=== PATIENT | female | born 1930 | race Caucasian/White ===

== ENCOUNTER → 2016-07-13 | Outpatient (CLI) | payer BC ==
[~2016-07-13] MED LIST: BCTCR/30 EXT; CHOL1000 PO; CLC100 PO; CYAN10005 PO; CYAN100T6 PO; DILT-115 PO; DOCU-94 PO; FURO-85 PO; LEVO75TA PO; LISI-725 PO; MCRK20 PO; NYSS/ PO; OXGN; PANT40TA PO; PRAV20TA PO; PRD/1 PO; PRD20 PO; PRED10TA PO; PRT/20 PO; PSYL1.7W PO; SYN100 PO
[2016-07-13 12:39] LABS: HEMATOCRIT 31.3 % (37-47); MEAN CORPUSCULAR HEMOGLOBIN 30.5 pg (25-34); MEAN CORPUSCULAR HGB CONC 33.5 g/dl (32-36); MEAN PLATELET VOLUME 9.3 fL (7.4-10.4); PLATELET COUNT 218 K/uL (130-400); RED BLOOD COUNT 3.44 M/uL (4.2-5.4); WHITE BLOOD COUNT 6.96 K/uL (4.8-10.8)
[2016-07-13 12:43] LABS: URINE APPEARANCE CLEAR (CLEAR); URINE BILIRUBIN NEG (NEG); URINE COLOR YELLOW; URINE EPITHELIAL CELL AUTO >30 /lpf (0-5); URINE NITRITE NEG (NEG); URINE PH 5.5 (4.5-7.5); URINE SPECIFIC GRAVITY 1.015 (1.000-1.030); UROBILINOGEN NEG (NEG)
[2016-07-13 12:49] LABS: ALT/SGPT 21 U/L (12-78); AST/SGOT 21 U/L (15-37); BLOOD UREA NITROGEN 22 mg/dl (7-18); BUN/CREATININE RATIO 15.8 (10-20); CALCIUM 8.8 mg/dl (8.5-10.1); CARBON DIOXIDE 26 mmol/L (21-32); CHLORIDE 109 mmol/L (98-107); GLUCOSE 99 mg/dl (70-99); POTASSIUM 4.5 mmol/L (3.5-5.1); SODIUM 143 mmol/L (136-145)
[2016-07-13 12:52] LABS: MANUAL MICROSCOPIC REQUIRED? NO; REVIEW REQ? NO
[2016-07-13 12:59] LABS: ALB/GLOB RATIO 1.2 (0.9-2); ALKALINE PHOSPHATASE 61 U/L (45-117); THYROID STIMULATING HORMONE 0.761 uIu/ml (0.300-4.500)
[2016-07-13 13:05] LABS: URINE PROTIEN/CREAT RATIO 0.2 (0-0.2); URINE TOTAL PROTEIN 13.8 mg/dl (0-11.9)
== END | disposition home or self-care (01) ==
LOC: C.LABBFT 10:44
PROVIDERS: ATTEND Internal Medicine Nephrology
DX: N18.9 Chronic kidney disease, unspecified (principal); I10 Essential (primary) hypertension; E55.9 Vitamin D deficiency, unspecified; N18.3 Chronic kidney disease, stage 3 (moderate); E03.9 Hypothyroidism, unspecified

== ENCOUNTER 2016-09-22 13:56 | Inpatient (IN) | payer BC, OTHER ==
[~2016-09-22] VITALS: Ht 162.6 cm; Wt 56.6 kg
[~2016-09-22 13:56] MED LIST changes: -BCTCR/30 EXT; -CHOL1000 PO; -CYAN10005 PO; -DOCU-94 PO; -FURO-85 PO; -LEVO75TA PO; -MCRK20 PO; -NYSS/ PO; -OXGN; -PRD/1 PO; -PRD20 PO; -PRED10TA PO; -PRT/20 PO; -PSYL1.7W PO
[2016-09-22] MEDS ORDERED: PRT/20 PO (14:13)
[2016-09-22] MEDS ORDERED: CYAN10005 PO (14:13)
[2016-09-22] MEDS ORDERED: DOCU-94 PO (14:13)
[2016-09-22] MEDS ORDERED: LEVO75TA PO (14:13)
[2016-09-22] MEDS ORDERED: CHOL1000 PO (14:18)
--- NOTE | 2016-09-22 15:08 | DIAGNOSTIC IMAGING REPORT ---
CHEST 2 VIEWS ROUTINE HISTORY: Shortness of breath. COMPARISON: Chest 06/12/2014. FINDINGS: Near diffuse bilateral airspace opacities. No pneumothorax. Trace bilateral pleural effusions. The heart is mildly enlarged. IMPRESSION: Near diffuse bilateral airspace opacities and trace bilateral pleural effusions. This could represent pulmonary edema or a pneumonia. Recommend follow-up to ensure resolution. Electronically signed by: Jaswinder Cho M.D. 09/22/2016 3:06 PM Dictated Date/Time: 09/22/2016 3:05 PM
[2016-09-22 15:10] LABS: ALT/SGPT 81 U/L (12-78); BLOOD UREA NITROGEN 30 mg/dl (7-18); CALCIUM 8.3 mg/dl (8.5-10.1); CARBON DIOXIDE 20 mmol/L (21-32); CHLORIDE 108 mmol/L (98-107); GLUCOSE 160 mg/dl (70-99); POTASSIUM 4.4 mmol/L (3.5-5.1); SODIUM 139 mmol/L (136-145)
[2016-09-22 15:13] LABS: ALB/GLOB RATIO 0.9 (0.9-2); ALKALINE PHOSPHATASE 145 U/L (45-117); AST/SGOT 76 U/L (15-37)
[2016-09-22 15:14] LABS: HEMATOCRIT 19.9 % (37-47); MEAN CELL VOLUME 96.1 fL (80-100); MEAN CORPUSCULAR HEMOGLOBIN 32.9 pg (25-34); MEAN CORPUSCULAR HGB CONC 34.2 g/dl (32-36); MEAN PLATELET VOLUME 8.9 fL (7.4-10.4); PLATELET COUNT 206 K/uL (130-400); RED BLOOD COUNT 2.07 M/uL (4.2-5.4)
[2016-09-22 15:18] LABS: ANISOCYTOSIS PRESENT; BASO % 0.2 %; BASO ABS # 0.03 K/uL (0-0.2); COMPLETE YES; EOS % 0.1 %; IG% 0.8 %; LYMPH % 6.4 %; LYMPH ABS # 0.89 K/uL (1.2-3.4); MICROCYTOSIS PRESENT; MONO % 7.1 %; NEUT % 85.4 %; POLYCHROMASIA 1+
[2016-09-22 15:19] LABS: PARTIAL THROMBOPLASTIN RATIO 0.7; PROTHROMBIN TIME (PATIENT) 10.7 SECONDS (9.0-12.0)
--- NOTE | 2016-09-22 17:09 | DIAGNOSTIC IMAGING REPORT ---
CT SCAN OF THE CHEST WITHOUT IV CONTRAST CLINICAL HISTORY: Dyspnea. COMPARISON STUDY: Chest CT dated 06/13/2014. Chest x-ray dated 09/22/2016. TECHNIQUE: CT scan of the thorax was performed from the thoracic inlet to the upper abdomen. Images are reviewed in the axial, sagittal, and coronal planes. IV contrast was not administered for this examination. The examination is degraded by streak artifact and the patient's arms which could not be elevated above the chest. The examination is also degraded by motion artifact. CT DOSE: 204.81 mGy.cm FINDINGS: Thyroid: Atrophic. Thoracic aorta: There is advanced atherosclerotic calcification of the thoracic aorta, which is normal in caliber and demonstrates standard 3-vessel arch anatomy. Heart: The heart is markedly enlarged and without pericardial effusion. The coronary arteries are densely calcified. There is diminished attenuation of the cardiac blood pool as compared to the myocardium suggesting anemia. The main pulmonary arteries are dilated suggesting pulmonary artery hypertension. Lungs and pleural spaces: Evaluation of the lung parenchyma is degraded by expiratory motion artifact. There are small pleural effusions, right larger than left with associated bibasilar atelectasis. Diffuse intralobular septal thickening is noted. There are diffuse bilateral airspace opacities in a perihilar distribution. The trachea and central airways appear clear. Mediastinum: There are numerous prominent mediastinal lymph nodes which measure up to 9 mm in short axis. Calcified mediastinal nodes are observed. Susy: Not well assessed without IV contrast. There are calcified right hilar nodes. Axillae: There is no axillary lymphadenopathy. Upper abdomen: A small hiatal hernia is identified. There is gas present within the gallbladder lumen. Mild central intrahepatic biliary ductal dilatation is noted. There are numerous calcified splenic granulomas. Calcified hepatic granulomas are also seen. The partially imaged left kidney demonstrates marked cortical atrophy. Skeletal structures: The skeletal structures are osteopenic. There is an age indeterminant superior endplate compression deformity of T11. Large hemangiomas are seen in the bodies of T1, T2, and L1. No lytic or blastic bony lesions are seen. Advanced arthritic change is noted in the shoulders. IMPRESSION: 1. Streak and motion degraded examination. 2. The heart is markedly enlarged. Diffuse intralobular septal thickening suggests congestive failure. 3. There are diffuse bilateral airspace opacities in a predominantly perihilar distribution. The appearance is nonspecific, and differential considerations include pulmonary edema, pneumonia, pulmonary hemorrhage, and/or ARDS. Clinical correlation will be essential. 4. Small pleural effusions, right larger than left. 5. Nonspecific gas is noted within the partially imaged gallbladder lumen. This could be iatrogenic if there has been a history of sphincterotomy. Correlation with clinical findings and serum bilirubin levels will be required. 6. Numerous prominent mediastinal lymph nodes are of indeterminant significance and may be reactive. 7. Additional findings as above. Electronically signed by: Yimi Lo M.D. 09/22/2016 5:08 PM Dictated Date/Time: 09/22/2016 4:57 PM
--- NOTE | 2016-09-22 18:27 | EMERGENCY ROOM VISIT NOTE ---
History Report prepared by Ramya: Willa Almanzar Under the Supervision of: Dr. Gertrudis Romero D.O. First contact with patient: 14:04 Chief Complaint: RESPIRATORY DISTRESS Stated Complaint: CHEST PAIN, COUGH W/BLOOD Nursing Triage Summary: Pt arrives ALS from home with SOB x1 week Pt also c/o midsternal CP that radiates between shoulder blades O2 sats 81% on RA on arrival to ED SOB worse with exertion Pt had 1 nitro and 324ASA en route History of Present Illness The patient is an 86 year old female who presents to the Emergency Room with complaints of persistent difficulty breathing for the past 3-4 days. She was brought to the ED by EMS. She was starting to feel better yesterday, but then began to cough up blood. The patient reports that she is no longer on blood thinners. She was previously on dialysis, but regained enough kidney function to stop. She follows with Dr. Sanon, cardiology, for worsening aortic stenosis. Patient reports coughing, chills, intermittent pain up the side of her neck, and chest tightness. She denies any fever, abdominal pain, or chest pain. Source of History: patient Onset: 3-4 days ago Position: other (global) Quality: other (SOB) Timing: other (persistent) Associated Symptoms: + chills, + cough (hemotypsis), + neck pain ( intermittent up the side), No abdominal pain, No chest pain, No fevers Note: Pt reports chest tightness. Review of Systems See HPI for pertinent positives & negatives. A total of 10 systems reviewed and were otherwise negative. 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 Family History Heart disease Social History Smoking Status: Never Smoker Marital Status: Housing Status: lives alone Occupation Status: retired Current/Historical Medications Scheduled Cholecalciferol (Vitamin D3), 1 TAB PO DAILY Cyanocobalamin (Vitamin B-12), 1,000 MCG PO DAILY Diltiazem Hcl Ext Rel (Tiazac), 240 MG PO DAILY Docusate Sodium (Colace), 1 CAP PO BID Levothyroxine Sodium (Synthroid), 75 MCG PO DAILY Lisinopril (Zestril), 20 MG PO Q12HR Pantoprazole (Protonix), 20 MG PO BID Pravastatin (Pravachol ), 20 MG PO HS Allergies Coded Allergies: Doxycycline (Verified Allergy, Severe, RASH, 09/22/16) Trimethoprim (Verified Allergy, Severe, RASH, 09/22/16) Adhesives (Verified Allergy, Unknown, HAD RXN TO [employer] PATCHES, ) Carbamazepine (Verified Allergy, Unknown, 09/22/16) Hydantoins (Verified Allergy, Unknown, 09/22/16) Penicillins (Verified Allergy, Unknown, AMOXIL, 09/22/16) Phenytoin (Verified Allergy, Unknown, 09/22/16) Physical Exam Vital Signs Date Time Temp Pulse Resp B/P Pulse Ox O2 Delivery O2 Flow Rate FiO2 09/22/16 18:06 82 09/22/16 17:06 127/52 09/22/16 16:31 111/57 09/22/16 16:26 76 26 96 09/22/16 16:01 118/52 09/22/16 16:01 74 20 118/52 96 09/22/16 15:56 78 26 91 09/22/16 15:31 107/53 09/22/16 15:26 76 28 95 09/22/16 15:24 77 22 112/58 96 6.0 09/22/16 15:22 112/58 09/22/16 15:20 78 18 64/46 09/22/16 15:19 68/46 09/22/16 14:26 83 20 93 09/22/16 14:10 93 Nasal Cannula 6.0 09/22/16 14:06 91 Nasal Cannula 6.0 09/22/16 14:05 88 09/22/16 14:04 115/52 09/22/16 14:02 81 Room Air 09/22/16 14:02 37.5 92 28 115/52 81 Room Air Physical Exam HEENT: Head - normocephalic and atraumatic Pupils are equal, round, and reactive to light. Extraocular eye muscles are intact, and sclera are anicteric. Nose - moist nasal mucosa without discharge. Mouth - moist buccal mucosa. Oropharynx is nonerythematous and there is no tonsillar exudate or edema noted. Neck: Supple; no JVD, nuchal rigidity, cervical lymphadenopathy. Heart: Regular rate and rhythm. There is a normal S1 and S2 with no murmurs, clicks, or gallops appreciated. Lungs: Rhonchi in base of lungs bilaterally. Abdomen: Soft, completely nontender, nondistended, with good bowel sounds. There are no palpable pulsatile masses or hepatosplenomegaly. There is no guarding, rigidity, or rebound noted. Extremities: No evidence of cyanosis, clubbing, or edema. There are easily palpable peripheral pulses. Skin: pale, warm and dry with good turgor and no rashes. Medical Decision & Procedures ER Provider Diagnostic Interpretation: X-ray results as stated below per interpretation by me and the radiologist. Radiology results as stated below per my review and the radiologist's interpretation: CHEST 2 VIEWS ROUTINE HISTORY: Shortness of breath. COMPARISON: Chest 06/12/2014. FINDINGS: Near diffuse bilateral airspace opacities. No pneumothorax. Trace bilateral pleural effusions. The heart is mildly enlarged. IMPRESSION: Near diffuse bilateral airspace opacities and trace bilateral pleural effusions. This could represent pulmonary edema or a pneumonia. Recommend follow-up to ensure resolution. Electronically signed by: Jaswinder Cho M.D. 09/22/2016 3:06 PM Dictated Date/Time: 09/22/2016 3:[address] SCAN OF THE CHEST WITHOUT IV CONTRAST CLINICAL HISTORY: Dyspnea. COMPARISON STUDY: Chest CT dated 06/13/2014. Chest x-ray dated 09/22/2016. TECHNIQUE: CT scan of the thorax was performed from the thoracic inlet to the upper abdomen. Images are reviewed in the axial, sagittal, and coronal planes. IV contrast was not administered for this examination. The examination is degraded by streak artifact and the patient's arms which could not be elevated above the chest. The examination is also degraded by motion artifact. CT DOSE: 204.81 mGy.cm FINDINGS: Thyroid: Atrophic. Thoracic aorta: There is advanced atherosclerotic calcification of the thoracic aorta, which is normal in caliber and demonstrates standard 3-vessel arch anatomy. Heart: The heart is markedly enlarged and without pericardial effusion. The coronary arteries are densely calcified. There is diminished attenuation of the cardiac blood pool as compared to the myocardium suggesting anemia. The main pulmonary arteries are dilated suggesting pulmonary artery hypertension. Lungs and pleural spaces: Evaluation of the lung parenchyma is degraded by expiratory motion artifact. There are small pleural effusions, right larger than left with associated bibasilar atelectasis. Diffuse intralobular septal thickening is noted. There are diffuse bilateral airspace opacities in a perihilar distribution. The trachea and central airways appear clear. Mediastinum: There are numerous prominent mediastinal lymph nodes which measure up to 9 mm in short axis. Calcified mediastinal nodes are observed. Susy: Not well assessed without IV contrast. There are calcified right hilar nodes. Axillae: There is no axillary lymphadenopathy. Upper abdomen: A small hiatal hernia is identified. There is gas present within the gallbladder lumen. Mild central intrahepatic biliary ductal dilatation is noted. There are numerous calcified splenic granulomas. Calcified hepatic granulomas are also seen. The partially imaged left kidney demonstrates marked cortical atrophy. Skeletal structures: The skeletal structures are osteopenic. There is an age indeterminant superior endplate compression deformity of T11. Large hemangiomas are seen in the bodies of T1, T2, and L1. No lytic or blastic bony lesions are seen. Advanced arthritic change is noted in the shoulders. IMPRESSION: 1. Streak and motion degraded examination. 2. The heart is markedly enlarged. Diffuse intralobular septal thickening suggests congestive failure. 3. There are diffuse bilateral airspace opacities in a predominantly perihilar distribution. The appearance is nonspecific, and differential considerations include pulmonary edema, pneumonia, pulmonary hemorrhage, and/or ARDS. Clinical correlation will be essential. 4. Small pleural effusions, right larger than left. 5. Nonspecific gas is noted within the partially imaged gallbladder lumen. This could be iatrogenic if there has been a history of sphincterotomy. Correlation with clinical findings and serum bilirubin levels will be required. 6. Numerous prominent mediastinal lymph nodes are of indeterminant significance and may be reactive. 7. Additional findings as above. Electronically signed by: Yimi Lo M.D. 09/22/2016 5:08 PM Dictated Date/Time: 09/22/2016 4:57 PM Laboratory Results 09/22/16 14:41 Red Blood Count 2.07, Mean Corpuscular Volume 96.1, Mean Corpuscular Hemoglobin 32.9, Mean Corpuscular Hemoglobin Concent 34.2, Mean Platelet Volume 8.9, Neutrophils (%) (Auto) 85.4, Lymphocytes (%) (Auto) 6.4, Monocytes (%) (Auto) 7.1, Eosinophils (%) (Auto) 0.1, Basophils (%) (Auto) 0.2, Neutrophils # (Auto) 11.78, Lymphocytes # (Auto) 0.89, Monocytes # (Auto) 0.98, Eosinophils # (Auto) 0.01, Basophils # (Auto) 0.03 09/22/16 14:41 Test 09/22/16 14:41 09/22/16 14:45 White Blood Count 13.80 K/uL (4.8-10.8) Red Blood Count 2.07 M/uL (4.2-5.4) Hemoglobin 6.8 g/dL (12.0-16.0) Hematocrit 19.9 % (37-47) Mean Corpuscular Volume 96.1 fL (80-100) Mean Corpuscular Hemoglobin 32.9 pg (25-34) Mean Corpuscular Hemoglobin Concent 34.2 g/dl (32-36) Platelet Count 206 K/uL (130-400) Mean Platelet Volume 8.9 fL (7.4-10.4) Neutrophils (%) (Auto) 85.4 % Lymphocytes (%) (Auto) 6.4 % Monocytes (%) (Auto) 7.1 % Eosinophils (%) (Auto) 0.1 % Basophils (%) (Auto) 0.2 % Neutrophils # (Auto) 11.78 K/uL (1.4-6.5) Lymphocytes # (Auto) 0.89 K/uL (1.2-3.4) Monocytes # (Auto) 0.98 K/uL (0.11-0.59) Eosinophils # (Auto) 0.01 K/uL (0-0.5) Basophils # (Auto) 0.03 K/uL (0-0.2) RDW Standard Deviation 60.1 fL (36.4-46.3) RDW Coefficient of Variation 17.9 % (11.5-14.5) Immature Granulocyte % (Auto) 0.8 % Immature Granulocyte # (Auto) 0.11 K/uL (0.00-0.02) Polychromasia 1+ Anisocytosis PRESENT Microcytosis PRESENT Prothrombin Time 10.7 SECONDS (9.0-12.0) Prothromb Time International Ratio 1.0 (0.9-1.1) Activated Partial Thromboplast Time 19.4 SECONDS (21.0-31.0) Partial Thromboplastin Ratio 0.7 D-Dimer 1780 ug/L FEU (0-500) Anion Gap 11.0 mmol/L (3-11) Estimated GFR () 23.8 Estimated GFR (Non- 20.5 BUN/Creatinine Ratio 14.0 (10-20) Calcium Level 8.3 mg/dl (8.5-10.1) Total Bilirubin 1.4 mg/dl (0.2-1) Aspartate Amino Transf (AST/SGOT) 76 U/L (15-37) Alanine Aminotransferase (ALT/SGPT) 81 U/L (12-78) Alkaline Phosphatase 145 U/L (45-117) Total Protein 6.8 gm/dl (6.4-8.2) Albumin 3.3 gm/dl (3.4-5.0) Globulin 3.5 gm/dl (2.5-4.0) Albumin/Globulin Ratio 0.9 (0.9-2) Bedside Lactic Acid Venous 1.38 mmol/L (0.90-1.70) Laboratory results per my review. Procedure Type and cross PRBC ECG Indication: SOB/dyspnea Rate (beats per minute): 83 Rhythm: normal sinus Findings: ST depression (Lateral), no ectopy ED Course 1409: The patient was evaluated in room B4. A complete history and physical examination were performed. Nursing notes and previous electronic medical records were reviewed. IV lock was established and labs were drawn as above. A twelve-lead EKG was obtained. A chest x-ray was performed. 1515: The patient is significantly anemic. 1534: I reevaluated the patient. I updated her and her family on the results and treatment plan. They verbalized understanding and agreement. She will be evaluated for further management by [facility]. 1628: I discussed the patient's case with Dr. [place], [facility] [place]. She will be evaluated for further management. The patient for CT scan of the chest. 1632: The nurse tested the patient's stool. It was heme positive. Medical Decision The patient is a 86 year old female who presents to the ED with difficulty breathing. Differential diagnosis includes PE, CHF, pneumonia, empyema, bronchitis. Labs: WBC count 13.8, hemoglobin 6.8, platelet count 206, BUN 30, creatinine 2.1 , lactic acid 1.3, total bilirubin 1.4, AST 76, ALT 81, Alk Phos 145, D-dimer 1780. This is an 78-year-old female patient who presents to the emergency department with increasing shortness of breath and hemoptysis. The patient was noted to have an elevated creatinine consistent with acute renal failure. She has dropped 4 g of hemoglobin in the past 2 months. Her stools were heme positive. I'm concerned about the hemoptysis and the possibility of pulmonary blood. The patient has had previous DVTs and was on Coumadin previously but no longer takes it. We are unable to get a contrasted CT scan of the chest because of the elevated creatinine. We did a noncontrast CAT scan which shows probable consolidation consistent with pneumonia. She will be treated with antibiotics. She will also require blood transfusion. I discussed the case with the [facility] Hospitalist and they will byway for further management. Consults Time Called: 1534 Consulting Physician: Dr. [place], [facility] [place] Returned Call: [phone] I discussed the patient's case with him. She will be evaluated for further management. Impression Primary Impression: Acute renal failure Additional Impression: Anemia Scribe Attestation The scribe's documentation has been prepared under my direction and personally reviewed by me in its entirety. I confirm that the note above accurately reflects all work, treatment, procedures, and medical decision making performed by me. Departure Information Dispostion Being Evaluated By Hospitalist Referrals Eugneio Cardenas M.D. (PCP) Patient Instructions Asthma - [facility], COPD - [facility], Croup - [facility], My [facility] Health Problem Qualifiers
[2016-09-22] MEDS ORDERED: METHYLPREDNISOLONE 125 MG VIAL IV STA ×2 (18:36→19:40)
[2016-09-22] MEDS ORDERED: PANTOprazole INJ 80 MG in DEXTROSE 5% 100ML 100 ML IV SCH (19:15)
[2016-09-22] MEDS ORDERED: PANTOprazole INJ 40 MG in DEXTROSE 5% 100ML 100 ML IV SCH (19:15)
[2016-09-22] MEDS ORDERED: ZOLPIDEM TARTRATE 5 MG TAB PO PRN (19:15)
[2016-09-22] MEDS ORDERED: ONDANSETRON INJ 2 MG/ML 2 ML VIAL IV PRN (19:15)
[2016-09-22] MEDS ORDERED: ACETAMINOPHEN 325 MG TAB PO PRN (19:15)
--- NOTE | 2016-09-22 19:47 | Critical Care Consultation ---
Critical Care Consultation Date of Consultation: Sep 22, 2016. Attending Physician: kalyani Reason for Consultation: hemoptysis History of Present Illness This is an 86 yo f that is presenting to us for consultation after an episode hemoptysis in the presence of hypoxia. According to the patient she has been having progressive worsening of SOB over the past 3-4 days and actually started to feel better. Today she had an episode of hemoptysis ( bright red blood) and her son called the EMS. She was found to be significantly hypoxic and started on oxygen. She also had another episode of hemoptysis en route. She is currently comfortable with 6 L of oxygen. She was evaluated in the ED and CXR was concerning for ARDS however inconclusive so a CT scan of the chest was completed. No contrast was used because the patient has a history of CKD and the cr was 1.8. It revealed findings that were concerning for pulmonary hemorrhage. She was also found to be anemic with a hgb of < 7. She does have abnormal antibiotics in the blood which make it difficult for transfusion and needs to be transported from [place]. She does have a significant history of nephritis which was thought to be secondary to Dilantin use. This required that the patient be placed on hemodialysis for some time. She has been weaned off of the dialysis however continues to follow regualarly with Dr Gaitan. There was a thought to do a kidney biopsy but because the patient was on blood thinners at the time for a pulmonary embolus it was deferred at that time and not revisited because the patient improved. She also has a history of severe aortic stenosis whom she follows with Dr Sanon. No history of gastric/ duodenal ulcers. Past Medical/Surgical History Chronic anemia CKD III Seizures Pulmonary embolism HTN Hypothyroism Hyperchol bilat hip arthroplasty TIA Family History Heart disease Social History Smoking Status: Never Smoker Smokeless Tobacco Use: No Alcohol Use: none Drug Use: none Marital Status: Housing Status: lives alone Occupation Status: retired Allergies Coded Allergies: Doxycycline (Verified Allergy, Severe, RASH, 09/22/16) Trimethoprim (Verified Allergy, Severe, RASH, 09/22/16) Adhesives (Verified Allergy, Unknown, HAD RXN TO [employer]ATCHES, ) Carbamazepine (Verified Allergy, Unknown, 09/22/16) Hydantoins (Verified Allergy, Unknown, 09/22/16) Penicillins (Verified Allergy, Unknown, AMOXIL, 09/22/16) Phenytoin (Verified Allergy, Unknown, 09/22/16) Home Medications Scheduled Cholecalciferol (Vitamin D3), 1 TAB PO DAILY Cyanocobalamin (Vitamin B-12), 1,000 MCG PO DAILY Diltiazem Hcl Ext Rel (Tiazac), 240 MG PO DAILY Docusate Sodium (Colace), 1 CAP PO BID Levothyroxine Sodium (Synthroid), 75 MCG PO DAILY Lisinopril (Zestril), 20 MG PO Q12HR Pantoprazole (Protonix), 20 MG PO BID Pravastatin (Pravachol ), 20 MG PO HS Current Inpatient Medications Current Inpatient Medications Medications (Trade) Dose Ordered Sig/Phillip Route Start Time Stop Time Status Last Admin Dose Admin Sodium Chloride (Nss 1000ml) 1,000 ml @ 75 mls/hr [id number] IV 09/22/16 19:06 10/22/16 19:05 UNV Acetaminophen (Tylenol Tab) 650 mg Q4H PRN PO 09/22/16 19:15 10/22/16 19:14 UNV Zolpidem Tartrate (Ambien Tab) 5 mg HSZ PRN PO 09/22/16 19:15 10/22/16 19:14 UNV Diltiazem HCl (TIAzac CAP) 120 mg BID PO 09/22/16 21:00 10/22/16 20:59 UNV Levothyroxine Sodium 75 mcg 75 mcg DAILY PO 09/23/16 09:00 10/23/16 08:59 UNV Pantoprazole Sodium 80 mg/ Dextrose 120 ml @ 400 mls/hr NOW IV 09/22/16 19:15 10/22/16 19:14 UNV Pantoprazole Sodium/Dextrose (Protonix Inj/D5 100ml) 100 ml @ 20 mls/hr Q5H IV 09/22/16 19:15 10/22/16 19:14 UNV Ondansetron HCl (Zofran Inj) 4 mg Q6H PRN IV 09/22/16 19:15 10/22/16 19:14 UNV Review of Systems Constitutional: No fever Eyes: No worsening of vision ENT: No hearing loss Respiratory: + dyspnea at rest, + dyspnea on exertion, + hemoptysis, + shortness of breath, No cough, No wheezing Cardiovascular: No chest pain Abdomen: No constipation, No diarrhea, No nausea, No pain, No vomiting Musculoskeletal: No joint pain, No muscle pain Genitourinary - Female: No dysuria, No hematuria Neurologic: + weakness, No balance problems, No numbness/tingling Endocrine: No fatigue Hematologic / Lymphatic: + abnormal bleeding/bruising Integumentary: No rash Physical Exam Date Time Temp Pulse Resp B/P Pulse Ox O2 Delivery O2 Flow Rate FiO2 09/22/16 19:01 121/54 09/22/16 18:41 82 29 95 09/22/16 18:11 81 31 95 09/22/16 18:06 82 09/22/16 18:01 118/64 09/22/16 17:41 80 31 95 09/22/16 17:11 76 27 95 09/22/16 17:06 127/52 09/22/16 16:31 111/57 09/22/16 16:26 76 26 96 09/22/16 16:01 118/52 09/22/16 16:01 74 20 118/52 96 09/22/16 15:56 78 26 91 09/22/16 15:31 107/53 09/22/16 15:26 76 28 95 09/22/16 15:24 77 22 112/58 96 6.0 09/22/16 15:22 112/58 09/22/16 15:20 78 18 64/46 09/22/16 15:19 68/46 09/22/16 14:26 83 20 93 09/22/16 14:10 93 Nasal Cannula 6.0 09/22/16 14:06 91 Nasal Cannula 6.0 09/22/16 14:05 88 09/22/16 14:04 115/52 09/22/16 14:02 81 Room Air 09/22/16 14:02 37.5 92 28 115/52 81 Room Air General Appearance: well-appearing, no apparent distress, other (She is on 6 L of oxygen during this assessment) Head: normocephalic, atraumatic Eyes: no discharge, EOMI ENT: other (inspection WNL) Neck: normal range of motion, supple Respiratory: other (no accessory muscle use, no respiratory distress during examination) Upper Extremities: no edema, normal ROM Lower Extremities: no edema, normal ROM Psychiatric: normal affect, other (oritented and alert) Laboratory Results Last 24 Hours Test 09/22/16 14:41 09/22/16 14:45 White Blood Count 13.80 K/uL Red Blood Count 2.07 M/uL Hemoglobin 6.8 g/dL Hematocrit 19.9 % Mean Corpuscular Volume 96.1 fL Mean Corpuscular Hemoglobin 32.9 pg Mean Corpuscular Hemoglobin Concent 34.2 g/dl Platelet Count 206 K/uL Mean Platelet Volume 8.9 fL Neutrophils (%) (Auto) 85.4 % Lymphocytes (%) (Auto) 6.4 % Monocytes (%) (Auto) 7.1 % Eosinophils (%) (Auto) 0.1 % Basophils (%) (Auto) 0.2 % Neutrophils # (Auto) 11.78 K/uL Lymphocytes # (Auto) 0.89 K/uL Monocytes # (Auto) 0.98 K/uL Eosinophils # (Auto) 0.01 K/uL Basophils # (Auto) 0.03 K/uL RDW Standard Deviation 60.1 fL RDW Coefficient of Variation 17.9 % Immature Granulocyte % (Auto) 0.8 % Immature Granulocyte # (Auto) 0.11 K/uL Polychromasia 1+ Anisocytosis PRESENT Microcytosis PRESENT Prothrombin Time 10.7 SECONDS Prothromb Time International Ratio 1.0 Activated Partial Thromboplast Time 19.4 SECONDS Partial Thromboplastin Ratio 0.7 D-Dimer 1780 ug/L FEU Sodium Level 139 mmol/L Potassium Level 4.4 mmol/L Chloride Level 108 mmol/L Carbon Dioxide Level 20 mmol/L Anion Gap 11.0 mmol/L Blood Urea Nitrogen 30 mg/dl Creatinine 2.10 mg/dl Estimated GFR () 23.8 Estimated GFR (Non- 20.5 BUN/Creatinine Ratio 14.0 Random Glucose 160 mg/dl Calcium Level 8.3 mg/dl Total Bilirubin 1.4 mg/dl Aspartate Amino Transf (AST/SGOT) 76 U/L Alanine Aminotransferase (ALT/SGPT) 81 U/L Alkaline Phosphatase 145 U/L Total Protein 6.8 gm/dl Albumin 3.3 gm/dl Globulin 3.5 gm/dl Albumin/Globulin Ratio 0.9 Bedside Lactic Acid Venous 1.38 mmol/L Diagnostic Results CT SCAN OF THE CHEST WITHOUT IV CONTRAST CLINICAL HISTORY: Dyspnea. COMPARISON STUDY: Chest CT dated 06/13/2014. Chest x-ray dated 09/22/2016. TECHNIQUE: CT scan of the thorax was performed from the thoracic inlet to the upper abdomen. Images are reviewed in the axial, sagittal, and coronal planes. IV contrast was not administered for this examination. The examination is degraded by streak artifact and the patient's arms which could not be elevated above the chest. The examination is also degraded by motion artifact. CT DOSE: 204.81 mGy.cm FINDINGS: Thyroid: Atrophic. Thoracic aorta: There is advanced atherosclerotic calcification of the thoracic aorta, which is normal in caliber and demonstrates standard 3-vessel arch anatomy. Heart: The heart is markedly enlarged and without pericardial effusion. The coronary arteries are densely calcified. There is diminished attenuation of the cardiac blood pool as compared to the myocardium suggesting anemia. The main pulmonary arteries are dilated suggesting pulmonary artery hypertension. Lungs and pleural spaces: Evaluation of the lung parenchyma is degraded by expiratory motion artifact. There are small pleural effusions, right larger than left with associated bibasilar atelectasis. Diffuse intralobular septal thickening is noted. There are diffuse bilateral airspace opacities in a perihilar distribution. The trachea and central airways appear clear. Mediastinum: There are numerous prominent mediastinal lymph nodes which measure up to 9 mm in short axis. Calcified mediastinal nodes are observed. Susy: Not well assessed without IV contrast. There are calcified right hilar nodes. Axillae: There is no axillary lymphadenopathy. Upper abdomen: A small hiatal hernia is identified. There is gas present within the gallbladder lumen. Mild central intrahepatic biliary ductal dilatation is noted. There are numerous calcified splenic granulomas. Calcified hepatic granulomas are also seen. The partially imaged left kidney demonstrates marked cortical atrophy. Skeletal structures: The skeletal structures are osteopenic. There is an age indeterminant superior endplate compression deformity of T11. Large hemangiomas are seen in the bodies of T1, T2, and L1. No lytic or blastic bony lesions are seen. Advanced arthritic change is noted in the shoulders. IMPRESSION: 1. Streak and motion degraded examination. 2. The heart is markedly enlarged. Diffuse intralobular septal thickening suggests congestive failure. 3. There are diffuse bilateral airspace opacities in a predominantly perihilar distribution. The appearance is nonspecific, and differential considerations include pulmonary edema, pneumonia, pulmonary hemorrhage, and/or ARDS. Clinical correlation will be essential. 4. Small pleural effusions, right larger than left. 5. Nonspecific gas is noted within the partially imaged gallbladder lumen. This could be iatrogenic if there has been a history of sphincterotomy. Correlation with clinical findings and serum bilirubin levels will be required. 6. Numerous prominent mediastinal lymph nodes are of indeterminant significance and may be reactive. 7. Additional findings as above. [~ rep ct add3]] CHEST 2 VIEWS ROUTINE HISTORY: Shortness of breath. COMPARISON: Chest 06/12/2014. FINDINGS: Near diffuse bilateral airspace opacities. No pneumothorax. Trace bilateral pleural effusions. The heart is mildly enlarged. IMPRESSION: Near diffuse bilateral airspace opacities and trace bilateral pleural effusions. This could represent pulmonary edema or a pneumonia. Recommend follow-up to ensure resolution. Assessment & Plan 1. Hypoxic respiratory failure possibly secondary to diffuse alveolar hemorrhage 2. Acute blood loss causing acute on chronic anemia 3. ANA PAULA on CKD Upon review of the patient's films and history we discussed the case with the family. We described the prognosis as poor and there was two ways we can approach treatment. One would be that the patient be transferred to a tertiary center where the patient would be subject to more aggressive measures of treatment and treatments that may not be entirely effective considering the patient's age, past medical history, current health and renal status. The alternative would be to stay here and to be treated with steroids for a potential autoimmune etiology however they understood that if the patient's status were to worsen that we would be limited in how well we could treat the patient aggressively. As per the patient's request we discussed the case with the american studies professor network communications engineer to discuss the plan of care and he was agreeable with the outcome with either plan. After extensive discussion with the family and patient it was decided she would stay. We also discussed her resuscitation status and that by staying here we would once again be limited in our resuscitative measures because of how extensive the hemorrhage could be. Once again, an extensive discussion was had with family and patient and it was decided she would remain DNR/DNI and if need be comfort measures would be initiated if patient's health degraded Resident Physician Supervision Note: Dr. Arellano was resident physician during care of patient. I separately evaluated patient and did history and exam. I discussed the case with the resident and generally agree with the findings and plan. Briefly, patient is an 86-year-old female with a significant past medical history for nephrotic syndrome requiring hemodialysis at age 78, pulmonary emboli of unclear etiology, and no longer on anticoagulation secondary to gastrointestinal bleeding. Requested to evaluate the patient for hemoptysis and bilateral infiltrates on CT scan. I have reviewed both the chest radiograph as well as the chest CT. I have also reviewed the labs obtained in the emergency department. Most likely diagnosis is diffuse alveolar hemorrhage. Etiology can include autoimmune disorder, i.e. Goodpasture's ( however unlikely in discussion with Dr. Toney nephrology) infectious etiology, or malignancy. Treatment remains to be largely supportive, anti-infective's as needed and high-dose steroids. I had an extensive discussion with the patient and her family regarding the exact goals of care. She does not want to be transferred to a tertiary care facility. She does not want her otic measures undertaken including intubation, CPR in event of cardiac arrest, nor pulmonary angiography in event of worsening hemoptysis. I discussed our inability to obtain pulmonary angiography if this were to continue, she is acceptable with these risks and understand if things get worse the care would transition from treatment in to comfort measures only. Accordingly we have made her CODE STATUS level V. Currently she is only requiring 5 L of oxygen via nasal cannula. Since she does not desire aggressive treatment, she does not meet criteria for intensive care admission at this time. I have discussed the case with Dr. Haney who will admit the patient to telemetry. At this time I will sign off. Documented By: Nolan Coffman DO
[2016-09-22 20:38] VITALS: BP 126/64; PULSE 81; TEMP 37.1; O2SAT 96; Ht 162.6 cm; Wt 56.6 kg
--- NOTE | 2016-09-22 20:53 | History and Physical ---
History & Physical Date & Time of Service: Sep 22, 2016 at 20:36 Chief Complaint: Anemia, Hemoptysis Primary Care Physician: Eugenio Cardenas M.D. History of Present Illness Source: patient, family The patient is an 86-year-old female who presents emergency department with difficulty breathing over the past 4 days, then briefly felt better yesterday, and then began to cough up blood. She had been on dialysis in the past reportedly brigade enough kidney function to stop. She has severe aortic stenosis and follows with Dr. Sanon from cardiology. She no longer takes aspirin or any blood thinners. She has had some intermittent issues with chills , neck pain and chest tightness. 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 Family History Heart disease Social History Smoking Status: Never Smoker Smokeless Tobacco Use: No Alcohol Use: none Drug Use: none Marital Status: Occupational Status: retired Immunizations History of Influenza Vaccine: Yes History of Tetanus Vaccine?: Unknown History of Pneumococcal: Yes History of Hepatitis B Vaccine: Unknown Multi-Drug Resistant Organisms History of MDRO: No Allergies Coded Allergies: Doxycycline (Verified Allergy, Severe, RASH, 09/22/16) Trimethoprim (Verified Allergy, Severe, RASH, 09/22/16) Adhesives (Verified Allergy, Unknown, HAD RXN TO [employer]ES, ) Carbamazepine (Verified Allergy, Unknown, 09/22/16) Hydantoins (Verified Allergy, Unknown, 09/22/16) Penicillins (Verified Allergy, Unknown, AMOXIL, 09/22/16) Phenytoin (Verified Allergy, Unknown, 09/22/16) Home Medications Scheduled Cholecalciferol (Vitamin D3), 1 TAB PO DAILY Cyanocobalamin (Vitamin B-12), 1,000 MCG PO DAILY Diltiazem Hcl Ext Rel (Tiazac), 240 MG PO DAILY Docusate Sodium (Colace), 1 CAP PO BID Levothyroxine Sodium (Synthroid), 75 MCG PO DAILY Lisinopril (Zestril), 20 MG PO Q12HR Pantoprazole (Protonix), 20 MG PO BID Pravastatin (Pravachol ), 20 MG PO HS Review of Systems The patient denies lower extremity swelling, vision change, hearing change, sore throat, chills, sweats, nausea, vomiting, abdominal pain, pelvic pain, blood in urine or stool, dysuria, urinary frequency or urgency, headache, memory loss, rash, focal weakness, numbness or tingling in arms or legs, arthralgias or myalgias, back or neck pain, night sweats, or allergy symptoms. The review of systems is otherwise negative other than for that already noted above, and at least 10 systems have been reviewed. Physical Exam Vital Signs Date Time Temp Pulse Resp B/P Pulse Ox O2 Delivery O2 Flow Rate FiO2 09/22/16 20:03 74 20 114/61 95 09/22/16 19:01 121/54 09/22/16 18:41 82 29 95 09/22/16 18:11 81 31 95 09/22/16 18:06 82 09/22/16 18:01 118/64 09/22/16 17:41 80 31 95 09/22/16 17:11 76 27 95 09/22/16 17:06 127/52 09/22/16 16:31 111/57 09/22/16 16:26 76 26 96 09/22/16 16:01 118/52 09/22/16 16:01 74 20 118/52 96 09/22/16 15:56 78 26 91 09/22/16 15:31 107/53 09/22/16 15:26 76 28 95 09/22/16 15:24 77 22 112/58 96 6.0 09/22/16 15:22 112/58 09/22/16 15:20 78 18 64/46 09/22/16 15:19 68/46 09/22/16 14:26 83 20 93 09/22/16 14:10 93 Nasal Cannula 6.0 09/22/16 14:06 91 Nasal Cannula 6.0 09/22/16 14:05 88 09/22/16 14:04 115/52 09/22/16 14:02 81 Room Air 09/22/16 14:02 37.5 92 28 115/52 81 Room Air The patient is awake, alert and oriented 3, appears thin, normocephalic and atraumatic, lying in bed and in no acute distress. HEENT--PERRL, EOMI, mucous membranes and oropharynx dry. Neck--supple, no JVD or bruits, thyroid normal, trachea midline, no adenopathy. Heart--normal S1 and S2, no extra beats, no murmurs, rubs or gallops. Lungs--crackles right mid and lower lung field, decreased breath sounds throughout left lung, mild respiratory distress, no accessory muscle use. Abdomen--normal bowel sounds and soft, nontender and nondistended, no hernias or masses, no organomegaly. Extremities--no cyanosis, clubbing or edema. There are good distal pulses b/l. Dermatologic--normal skin turgor, normal color, warm and dry, no abnormal lymph nodes, no rash. Neurologic--cranial nerves II through XII grossly intact. Rheumatologic--normal range of motion, nontender, muscles and joints for age. Psychiatric--normal affect. Diagnostics Laboratory Results Results Past 24 Hours Test 09/22/16 14:41 09/22/16 14:45 Range/Units White Blood Count 13.80 4.8-10.8 K/uL Red Blood Count 2.07 4.2-5.4 M/uL Hemoglobin 6.8 12.0-16.0 g/dL Hematocrit 19.9 37-47 % Mean Corpuscular Volume 96.1 80-100 fL Mean Corpuscular Hemoglobin 32.9 25-34 pg Mean Corpuscular Hemoglobin Concent 34.2 32-36 g/dl Platelet Count 206 130-400 K/uL Mean Platelet Volume 8.9 7.4-10.4 fL Neutrophils (%) (Auto) 85.4 % Lymphocytes (%) (Auto) 6.4 % Monocytes (%) (Auto) 7.1 % Eosinophils (%) (Auto) 0.1 % Basophils (%) (Auto) 0.2 % Neutrophils # (Auto) 11.78 1.4-6.5 K/uL Lymphocytes # (Auto) 0.89 1.2-3.4 K/uL Monocytes # (Auto) 0.98 0.11-0.59 K/uL Eosinophils # (Auto) 0.01 0-0.5 K/uL Basophils # (Auto) 0.03 0-0.2 K/uL RDW Standard Deviation 60.1 36.4-46.3 fL RDW Coefficient of Variation 17.9 11.5-14.5 % Immature Granulocyte % (Auto) 0.8 % Immature Granulocyte # (Auto) 0.11 0.00-0.02 K/uL Polychromasia 1+ Anisocytosis PRESENT Microcytosis PRESENT Prothrombin Time 10.7 9.0-12.0 SECONDS Prothromb Time International Ratio 1.0 0.9-1.1 Activated Partial Thromboplast Time 19.4 21.0-31.0 SECONDS Partial Thromboplastin Ratio 0.7 D-Dimer 1780 0-500 ug/L FEU Sodium Level 139 136-145 mmol/L Potassium Level 4.4 3.5-5.1 mmol/L Chloride Level 108 98-107 mmol/L Carbon Dioxide Level 20 21-32 mmol/L Anion Gap 11.0 3-11 mmol/L Blood Urea Nitrogen 30 7-18 mg/dl Creatinine 2.10 0.60-1.20 mg/dl Estimated GFR () 23.8 Estimated GFR (Non- 20.5 BUN/Creatinine Ratio 14.0 10-20 Random Glucose 160 70-99 mg/dl Calcium Level 8.3 8.5-10.1 mg/dl Total Bilirubin 1.4 0.2-1 mg/dl Aspartate Amino Transf (AST/SGOT) 76 15-37 U/L Alanine Aminotransferase (ALT/SGPT) 81 12-78 U/L Alkaline Phosphatase 145 45-117 U/L Total Protein 6.8 6.4-8.2 gm/dl Albumin 3.3 3.4-5.0 gm/dl Globulin 3.5 2.5-4.0 gm/dl Albumin/Globulin Ratio 0.9 0.9-2 Bedside Lactic Acid Venous 1.38 0.90-1.70 mmol/L Microbiology Results 09/22/16 Blood Culture, Received Pending 09/22/16 Blood Culture, Received Pending Diagnostic Radiology Patient Name: KEMI SULTANA Unit Number: [id number] Dictated: 09/22/16 1505 Transcribed: 09/22/16 150 PAJ Printed Date/Time: [~ rep prt dt]/[~ rep prt tm] [~ rep ct labl] - [~ rep ct ivnm] [facility] [place] [address] Dictated: 09/22/16 150 Transcribed: 09/22/16 150 PAJ Printed Date/Time: [~ rep prt dt]/[~ rep prt tm] [~ rep ct labl] - [~ rep ct ivnm] CHEST 2 VIEWS ROUTINE HISTORY: Shortness of breath. COMPARISON: Chest 06/12/2014. FINDINGS: Near diffuse bilateral airspace opacities. No pneumothorax. Trace bilateral pleural effusions. The heart is mildly enlarged. IMPRESSION: Near diffuse bilateral airspace opacities and trace bilateral pleural effusions. This could represent pulmonary edema or a pneumonia. Recommend follow-up to ensure resolution. Electronically signed by: Jaswinder Cho M.D. 09/22/2016 3:06 PM Dictated Date/Time: 09/22/2016 3:05 PM The status of this report is Signed. Draft = Not yet reviewed or approved by Radiologist. Signed = Reviewed and approved by Radiologist. <AttendingPhy></AttendingPhy> <FamilyPhy>Eugenio Cardenas M.D.</FamilyPhy > <PrimaryPhy>Eugenio Cardenas M.D.</PrimaryPhy> <UnitNumber>[id number]</ UnitNumber> <VisitNumber>[id number]</VisitNumber> <PatientName>KEMI SULTANA</ PatientName> <DateOfBirth>1930</DateOfBirth> <Location>C.EDB</Location> < ServiceDate>09/22/16</ServiceDate> <MNE>ESINDI</MNE> <OrderingPhy>Gertrudis Romero D.O.</OrderingPhy> <OrderingPhyMNE>f rep ord dr moseley</OrderingPhyMNE> < DictatingPhyMNE>f rep dict dr moseley</DictatingPhyMNE> <CCListMNE>f rep ct mne</ CCListMNE> <AdmittingPhyMNE>f pt admit dr moseley</AdmittingPhyMNE> <AttendingPhyMNE >f pt attend dr moseley</AttendingPhyMNE> <ConsultingPhyMNE>f pt consult dr moseley</ConsultingPhyMNE> <FamilyPhyMNE>f pt fam dr moseley</FamilyPhyMNE> <OtherPhyMNE>f pt other dr moseley</OtherPhyMNE> < PrimaryPhyMNE>f pt prim care dr moseley</PrimaryPhyMNE> <ReferringPhyMNE>f pt referring dr moseley</ReferringPhyMNE> Patient Name: KEMI SULTANA Unit Number: [id number] Dictated: 09/22/161656 Transcribed: 09/22/161656 EV Printed Date/Time: [~ rep prt dt]/[~ rep prt tm] [~ rep ct labl] - [~ rep ct ivnm] [facility] Radiology Department [place] [id number] Dictated: 09/22/161656 Transcribed: 09/22/161656 EV Printed Date/Time: [~ rep prt dt]/[~ rep prt tm] [~ rep ct labl] - [~ rep ct ivnm] [~ rep ct add3]] CT SCAN OF THE CHEST WITHOUT IV CONTRAST CLINICAL HISTORY: Dyspnea. COMPARISON STUDY: Chest CT dated 06/13/2014. Chest x-ray dated 09/22/2016. TECHNIQUE: CT scan of the thorax was performed from the thoracic inlet to the upper abdomen. Images are reviewed in the axial, sagittal, and coronal planes. IV contrast was not administered for this examination. The examination is degraded by streak artifact and the patient's arms which could not be elevated above the chest. The examination is also degraded by motion artifact. CT DOSE: 204.81 mGy.cm FINDINGS: Thyroid: Atrophic. Thoracic aorta: There is advanced atherosclerotic calcification of the thoracic aorta, which is normal in caliber and demonstrates standard 3-vessel arch anatomy. Heart: The heart is markedly enlarged and without pericardial effusion. The coronary arteries are densely calcified. There is diminished attenuation of the cardiac blood pool as compared to the myocardium suggesting anemia. The main pulmonary arteries are dilated suggesting pulmonary artery hypertension. Lungs and pleural spaces: Evaluation of the lung parenchyma is degraded by expiratory motion artifact. There are small pleural effusions, right larger than left with associated bibasilar atelectasis. Diffuse intralobular septal thickening is noted. There are diffuse bilateral airspace opacities in a perihilar distribution. The trachea and central airways appear clear. Mediastinum: There are numerous prominent mediastinal lymph nodes which measure up to 9 mm in short axis. Calcified mediastinal nodes are observed. Susy: Not well assessed without IV contrast. There are calcified right hilar nodes. Axillae: There is no axillary lymphadenopathy. Upper abdomen: A small hiatal hernia is identified. There is gas present within the gallbladder lumen. Mild central intrahepatic biliary ductal dilatation is noted. There are numerous calcified splenic granulomas. Calcified hepatic granulomas are also seen. The partially imaged left kidney demonstrates marked cortical atrophy. Skeletal structures: The skeletal structures are osteopenic. There is an age indeterminant superior endplate compression deformity of T11. Large hemangiomas are seen in the bodies of T1, T2, and L1. No lytic or blastic bony lesions are seen. Advanced arthritic change is noted in the shoulders. IMPRESSION: 1. Streak and motion degraded examination. 2. The heart is markedly enlarged. Diffuse intralobular septal thickening suggests congestive failure. 3. There are diffuse bilateral airspace opacities in a predominantly perihilar distribution. The appearance is nonspecific, and differential considerations include pulmonary edema, pneumonia, pulmonary hemorrhage, and/or ARDS. Clinical correlation will be essential. 4. Small pleural effusions, right larger than left. 5. Nonspecific gas is noted within the partially imaged gallbladder lumen. This could be iatrogenic if there has been a history of sphincterotomy. Correlation with clinical findings and serum bilirubin levels will be required. 6. Numerous prominent mediastinal lymph nodes are of indeterminant significance and may be reactive. 7. Additional findings as above. Electronically signed by: Yimi Lo M.D. 09/22/2016 5:08 PM Dictated Date/Time: 09/22/2016 4:57 PM The status of this report is Signed. Draft = Not yet reviewed or approved by Radiologist. Signed = Reviewed and approved by Radiologist. <AttendingPhy></AttendingPhy> <FamilyPhy>Eugenio Cardenas M.D.</FamilyPhy > <PrimaryPhy>Cardenas, Christopher E.,M.D.</PrimaryPhy> <UnitNumber>[id number]</ UnitNumber> <VisitNumber>[id number]</VisitNumber> <PatientName>KEMI SULTANA</ PatientName> <DateOfBirth>1930</DateOfBirth> <Location>C.EDB</Location> < ServiceDate>09/22/16</ServiceDate> <MNE>ESINDI</MNE> <OrderingPhy>Gertrudis Romero D.O.</OrderingPhy> <OrderingPhyMNE>f rep ord dr moseley</OrderingPhyMNE> < DictatingPhyMNE>f rep dict dr moseley</DictatingPhyMNE> <CCListMNE>f rep ct lorelei</ CCListMNE> <AdmittingPhyMNE>f pt admit dr moseley</AdmittingPhyMNE> <AttendingPhyMNE >f pt attend dr moseley</AttendingPhyMNE> <ConsultingPhyMNE>f pt consult dr moseley</ConsultingPhyMNE> <FamilyPhyMNE>f pt fam dr moseley</FamilyPhyMNE> <OtherPhyMNE>f pt other dr moseley</OtherPhyMNE> < PrimaryPhyMNE>f pt prim care dr moseley</PrimaryPhyMNE> <ReferringPhyMNE>f pt referring dr moseley</ReferringPhyMNE> EKG EKG shows normal sinus rhythm at 83 bpm, with [address] depressions in leads V5 and V6. Impression Assessment and Plan Extensive hemoptysis/acute respiratory failure with hypoxia--a consult with made with service parts coordinator Dr. Coffman who also assessed the patient, and the patient was also discussed with Dr. Regalado from nephrology. The operative was made for the patient to be transferred to a tertiary care center, to possibly offer more aggressive therapy for additional bleeding if she were to bleed further, but the patient and family preferred to stay at [facility]. There are aware that the main treatment that we can offer is IV Solu-Medrol. We'll continue nasal cannula at 5-6 L O2 humidified, and titrated to keep pulse ox greater than or equal to 92%, and change to BiPAP in particular nighttime if necessary. The patient and her family of both aware of her poor prognosis, and she has been made a level V DO NOT RESUSCITATE. Renal insufficiency-- patient's creatinine increased to 2.30. As noted in the history of present illness, she had been a dialysis patient in the past. We'll hydrate gently with normal saline, target hemoglobin to be 8 or above, and repeat a BMP and magnesium level in the a.m.. Her bar hostess is Dr. Gaitan. CAD/Atrial fibrillation/aortic valve stenosis/CHF history/hypertension--we'll change the patient's diltiazem ER from 240 mg by mouth daily to 120 mg by mouth twice a day, and continue lisinopril 20 mg by mouth every 12 hours. Hypothyroidism--continue levothyroxine sodium at 75 g by mouth daily. GERD/trace heme positive stool--change pantoprazole 20 mg by mouth twice a day to pantoprazole 40 mg IV twice a day. It is unlikely that she is having significant GI bleeding. As I discussed with the patient and family, her oxygenation is altered enough that endoscopy would not likely be able to be done until her pulmonary status improved, but seems quite unlikely. We'll therefore allow the patient eat and place on a more aggressive therapy. Hypercholesterolemia-- on pravastatin 20 mg by mouth at bedtime. Level of Care Telemetry Advanced Directives Existing Advance Directive: Yes Existing Living Will: Yes Existing Power of Web Content Specialist: Yes VTE Prophylaxis VTE Risk Assessment Done? Y/N: Yes Risk Level: Moderate
[2016-09-22 21:00] VITALS: O2SAT 96
[2016-09-22] MEDS: PANTOprazole INJ 40 MG in SYRINGE 0 ML IV SCH (21:25)
[2016-09-22] MEDS: SODIUM CHLORIDE 0.9% 1000ML 1,000 ML IV SCH (21:25)
[2016-09-22] MEDS: DILTIAZEM HCL 120 MG EXT REL CAP PO SCH (21:26)
[2016-09-22] MEDS: METHYLPREDNISOLONE IV 60 MG in SYRINGE 0 ML IV SCH (23:41)
[2016-09-22 23:59] VITALS: BP 108/53; PULSE 74; TEMP 37.1; O2SAT 96
[2016-09-23] VITALS (23 sets, daily range): BP systolic 80–122; BP diastolic 36–85; PULSE 60–84; TEMP 36.3–36.7; O2SAT 88–98
[2016-09-23] MEDS: METHYLPREDNISOLONE IV 60 MG in SYRINGE 0 ML IV SCH ×3 (05:35→18:11)
[2016-09-23] MEDS: LEVOTHYROXINE 75 MCG TAB PO SCH (05:35)
[2016-09-23 06:24] LABS: PROTHROMBIN TIME (PATIENT) 10.9 SECONDS (9.0-12.0)
[2016-09-23] MEDS ORDERED: NURSING VERBAL MED ORDER ONE (06:30)
[2016-09-23 06:39] LABS: BUN/CREATININE RATIO 18.8 (10-20); CREATININE 1.9 mg/dl (0.60-1.20); MAGNESIUM 2.2 mg/dl (1.8-2.4); POTASSIUM 4.1 mmol/L (3.5-5.1)
[2016-09-23 06:42] LABS: HEMATOCRIT 18.4 % (37-47); MEAN CELL VOLUME 96.8 fL (80-100); MEAN CORPUSCULAR HEMOGLOBIN 32.1 pg (25-34); MEAN CORPUSCULAR HGB CONC 33.2 g/dl (32-36); PLATELET COUNT 183 K/uL (130-400); WHITE BLOOD COUNT 10.69 K/uL (4.8-10.8)
[2016-09-23] MEDS ORDERED: SODIUM CHLORIDE 0.9% 500ML 500 ML IV SCH (06:45)
[2016-09-23] MEDS: DILTIAZEM HCL 120 MG EXT REL CAP PO SCH ×2 (07:25→21:12)
[2016-09-23] MEDS: PANTOprazole INJ 40 MG in SYRINGE 0 ML IV SCH ×2 (07:27→21:12)
[2016-09-23] MEDS: SODIUM CHLORIDE 0.9% 1000ML 1,000 ML IV SCH (07:27)
[2016-09-23 07:58] LABS: ANISOCYTOSIS PRESENT; COMPLETE YES; IG% 0.7 %; LYMPH % 8.1 %; LYMPH ABS # 0.87 K/uL (1.2-3.4); MONO % 1.2 %; POLYCHROMASIA 1+
--- NOTE | 2016-09-23 10:40 | Progress Note ---
Subjective Date of Service: Sep 23, 2016. Subjective Pt evaluation today including: conversation w/ patient, conversation w/ family , physical exam, chart review, lab review, review of studies, conversation w/ insurance healthcare consultant, review of inpatient medication list Feeling okay, still difficulty breathing, was eating breakfast first, reported feeling tired, she reported no more hemoptysis, denied chest pain Problem List Medical Problems: (1) Acute renal failure Status: Acute (2) Anemia Status: Acute Review of Systems Constitutional: + fatigue, + weakness, No chills, No fever, No problem reported , No sweats, No weight loss Eyes: No diplopia, No discharge, No eye pain, No redness, No worsening of vision ENT: + hearing loss (mild decreased hearing), No dental problems, No nasal symptoms, No sore throat, No tinnitus, No trouble swallowing, No unusual epistaxis Respiratory: + cough, + shortness of breath, + wheezing, No dyspnea at rest, No dyspnea on exertion, No hemoptysis, No sputum Cardiac: No PND, No chest pain, No claudication, No edema, No orthopnea, No palpitations Abdomen: No constipation, No diarrhea, No nausea, No pain, No vomiting Musculoskeletal: No calf pain, No joint pain, No muscle pain, No swelling Female : No abnormal vaginal bleeding, No dysuria, No hematuria, No incontinence, No urinary frequency, No vaginal discharge Neurologic: No balance problems, No memory loss, No numbness/tingling, No paralysis, No vertigo, No weakness Psychiatric: No anhedonism, No anxiety, No depression symptoms, No insomnia, No substance abuse Heme: No abnormal bleeding/bruising, No clotting problems, No night sweats, No swollen lymph nodes Endo: + fatigue, No excessive thirst, No excessive urination Skin: No bleeding, No color change, No itch, No new/changing skin lesions, No rash Objective Vital Signs Date Time Temp Pulse Resp B/P Pulse Ox O2 Delivery O2 Flow Rate FiO2 09/23/16 10:00 36.4 71 29 93/47 88 6.0 09/23/16 09:30 36.4 60 26 93/45 91 6.0 09/23/16 09:15 36.4 62 56 80/51 92 6.0 09/23/16 08:41 36.3 62 29 94/49 92 6.0 09/23/16 08:02 69 16 103/56 91 Nasal Cannula 5.0 09/23/16 08:00 95 Nasal Cannula 6.0 Humidified Oxygen 09/23/16 06:46 92/68 09/23/16 06:46 115/46 09/23/16 04:04 36.6 60 22 92/49 96 Room Air 09/23/16 04:00 95 Nasal Cannula 6.0 Humidified Oxygen 09/22/16 23:59 37.1 74 21 108/53 96 09/22/16 23:59 96 Nasal Cannula 5.0 Humidified Oxygen 09/22/16 21:00 96 Nasal Cannula 5.0 09/22/16 20:38 37.1 81 30 126/64 96 Nasal Cannula 6.0 09/22/16 20:03 74 20 114/61 95 09/22/16 19:01 121/54 09/22/16 18:41 82 29 95 09/22/16 18:11 81 31 95 09/22/16 18:06 82 09/22/16 18:01 118/64 09/22/16 17:41 80 31 95 09/22/16 17:11 76 27 95 09/22/16 17:06 127/52 09/22/16 16:31 111/57 09/22/16 16:26 76 26 96 09/22/16 16:01 118/52 09/22/16 16:01 74 20 118/52 96 09/22/16 15:56 78 26 91 09/22/16 15:31 107/53 09/22/16 15:26 76 28 95 09/22/16 15:24 77 22 112/58 96 6.0 09/22/16 15:22 112/58 09/22/16 15:20 78 18 64/46 09/22/16 15:19 68/46 09/22/16 14:26 83 20 93 09/22/16 14:10 93 Nasal Cannula 6.0 09/22/16 14:06 91 Nasal Cannula 6.0 09/22/16 14:05 88 09/22/16 14:04 115/52 09/22/16 14:02 81 Room Air 09/22/16 14:02 37.5 92 28 115/52 81 Room Air Physical Exam General Appearance: WD/WN, no apparent distress, + cachetic, + thin, + pertinent finding (frail and chronically ill-looking) Eyes: normal inspection, PERRL, EOMI, sclerae normal ENT: normal ENT inspection, hearing grossly normal, pharynx normal Neck: supple, no adenopathy, thyroid normal, no JVD, no carotid bruits, trachea midline Respiratory/Chest: chest non-tender, normal breath sounds, no respiratory distress, no accessory muscle use, + decreased breath sounds, + wheezing (mild) Cardiovascular: regular rate, rhythm, no edema, no gallop, no JVD, no murmur Abdomen: normal bowel sounds, non tender, soft, no organomegaly, no pulsatile mass Extremities: normal range of motion, non-tender, normal inspection, no pedal edema, no calf tenderness, normal capillary refill, pelvis stable Neurologic/Psychiatric: lug loader II-XII nml as tested, no motor/sensory deficits, alert, normal mood/affect, oriented x 3 Skin: normal color, warm/dry, no rash Lymphatic: no adenopathy Laboratory Results Last 24 Hours Test 09/22/16 14:41 09/22/16 14:45 09/23/16 05:28 White Blood Count 13.80 K/uL 10.69 K/uL Red Blood Count 2.07 M/uL 1.90 M/uL Hemoglobin 6.8 g/dL 6.1 g/dL Hematocrit 19.9 % 18.4 % Mean Corpuscular Volume 96.1 fL 96.8 fL Mean Corpuscular Hemoglobin 32.9 pg 32.1 pg Mean Corpuscular Hemoglobin Concent 34.2 g/dl 33.2 g/dl Platelet Count 206 K/uL 183 K/uL Mean Platelet Volume 8.9 fL 9.0 fL Neutrophils (%) (Auto) 85.4 % 90.0 % Lymphocytes (%) (Auto) 6.4 % 8.1 % Monocytes (%) (Auto) 7.1 % 1.2 % Eosinophils (%) (Auto) 0.1 % 0.0 % Basophils (%) (Auto) 0.2 % 0.0 % Neutrophils # (Auto) 11.78 K/uL 9.62 K/uL Lymphocytes # (Auto) 0.89 K/uL 0.87 K/uL Monocytes # (Auto) 0.98 K/uL 0.13 K/uL Eosinophils # (Auto) 0.01 K/uL 0.00 K/uL Basophils # (Auto) 0.03 K/uL 0.00 K/uL RDW Standard Deviation 60.1 fL 61.6 fL RDW Coefficient of Variation 17.9 % 18.2 % Immature Granulocyte % (Auto) 0.8 % 0.7 % Immature Granulocyte # (Auto) 0.11 K/uL 0.07 K/uL Polychromasia 1+ 1+ Anisocytosis PRESENT PRESENT Microcytosis PRESENT Prothrombin Time 10.7 SECONDS 10.9 SECONDS Prothromb Time International Ratio 1.0 1.0 Activated Partial Thromboplast Time 19.4 SECONDS 26.4 SECONDS Partial Thromboplastin Ratio 0.7 1.0 D-Dimer 1780 ug/L FEU Sodium Level 139 mmol/L 139 mmol/L Potassium Level 4.4 mmol/L 4.1 mmol/L Chloride Level 108 mmol/L 110 mmol/L Carbon Dioxide Level 20 mmol/L 19 mmol/L Anion Gap 11.0 mmol/L 10.0 mmol/L Blood Urea Nitrogen 30 mg/dl 36 mg/dl Creatinine 2.10 mg/dl 1.90 mg/dl Estimated GFR () 23.8 26.8 Estimated GFR (Non- 20.5 23.1 BUN/Creatinine Ratio 14.0 18.8 Random Glucose 160 mg/dl 177 mg/dl Calcium Level 8.3 mg/dl 8.0 mg/dl Total Bilirubin 1.4 mg/dl Aspartate Amino Transf (AST/SGOT) 76 U/L Alanine Aminotransferase (ALT/SGPT) 81 U/L Alkaline Phosphatase 145 U/L Total Protein 6.8 gm/dl Albumin 3.3 gm/dl Globulin 3.5 gm/dl Albumin/Globulin Ratio 0.9 Bedside Lactic Acid Venous 1.38 mmol/L Est Creatinine Clear Calc Drug Dose 17.7 ml/min Magnesium Level 2.2 mg/dl Assessment and Plan 86-year-old white female admitted on 09/22/2016 because of Extensive hemoptysis/ acute respiratory failure with hypoxia and acute on chronic kidney failure Extensive hemoptysis/acute respiratory failure with hypoxia: Remains unstable, continue oxygen, add neb tx Acute on chronic kidney failure stage III Acute on chronic anemia possible from blood loss from hemoptysis, today's getting worse, 2 unit blood transfusion is going on, hx of Seizures, Pulmonary embolism not on anticoag b/c bleeding, hx of TIA: Stable and watch HTN Hypothyroism Hyperchol : Continue current medication, but hold her blood pressure medicine because as BP is low, and she required to IV fluid bolus last night bilat hip arthroplasty hx of CAD/Atrial fibrillation/aortic valve stenosis/CHF history/hypertension-: Cardizem 120 mg by mouth twice a day, and continue lisinopril 20 mg by mouth every 12 hours hold with parameter As discussed with the patient and family upon admission with admission physician , shipping specialist, and critical care security operations engineer, the family and patient do not want to transfer to [facility], do not want to have heroic care, and do not want to ave resuscitation in case cardiac arrest GI prophylaxis is covered DVT prophylaxis will be SCD, no heparin per duct because of contraindicated with the hemoptysis I called to patient's son whose name is vidal, updated her atient's conditions and care plan, again he confirmed me about " no transferring, no heroic care such as surgery or procedure, just supportive care, Continued [facility] stay due to: multiple IV medications needed Discharge planning: uncertain
--- NOTE | 2016-09-23 13:07 | Pulmonary Consultation ---
History General Date of Service: Sep 23, 2016. Stated Complaint: Anemia, Hemoptysis, hypoxia HPI The patient is a 86 year old female who presents to [facility] with complaints of Anemia, Hemoptysis. The patient's primary care provider is Eugenio Cardenas M.D.. 86y/o female admitted through the ED with progressive SOB for 3-4 days, midsternal CP which radiates to the back and hemoptysis (last 24 hours). On arrival the patient was noted to be severely SOB with a SaO2 of 81% on room air. The EMS personnel did give the patient nitro and ASA in route. Futher work-up demonstrated anemia H/H: 01/28, diffuse infiltrative changes on CXR/non- contrast CT. Patient notes at this time her shortness of breath has resolved but she is requiring 8 L nasal cannula at this time and her SaO2's are sitting at 93%. The patient myself and her son did speak about her initial diagnosis of nephrotic syndrome following initiation of Dilantin from possible seizure episode. We also discussed her breakthrough pulmonary embolism on anticoagulation secondary to her nephrotic syndrome and the reason no renal biopsy was performed she was a high risk for secondary complications. At this time the patient notes intermittent nonproductive cough and denies hemoptysis. Notable complaints: coughing, chills, intermittent pain radiating up the side of her neck, chest tightness, flatulence and eructation Denies: fever, abdominal pain, classic cardiac chest pain EKG NSR possible LVH WBC: 13K ( Neuto-85%) H/H: 01/28 Plt: 206 BUN/Cr: 30/2.10 INR/PT/APTT: 1.0/10.7/19.4 D-dimer: 1780 Historian: patient, family, EMS Review of Systems Constitutional: reports: weakness Eyes: reports: no symptoms ENT: reports: no symptoms Cardiovascular: reports: chest tightness Respiratory: reports: shortness of breath Gastrointestinal: reports: belching, flatulence Genitourinary - Female: reports: no symptoms Musculoskeletal: reports: myalgias Integumentary: reports: no symptoms Neurologic: reports: no symptoms Psychiatric: reports: no symptoms Endocrine: no symptoms Hematologic / Lymphatic: no symptoms Allergic / Immunologic: no symptoms Past Medical History Past Medical History: (1) Sever Aortic Stenosis (2) Atrial Fibrillation (3) Chronic Kidney Disease baseline creatinine 1.1 (4) Congestive Heart Failure Nos (5) Coronary Atherosclerosis Of [place] Coronary Vessel (6) Hypertension (7) Nephrotic Syndrome/CKD IIIpossible due to Dilantin use with previous HD treatments No bx secondary to anti-coagulation/[id number] (8) Osteoporosis Nos (9) CVA vs. 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 (14) Seizure (15) Hypothyroidism (16) Pulmonary Embolism on anti-coagulation 10/2007: Secondary to nephrotic syndrome Past Surgical History: (1) bilat hip arthroplasty Family History Heart disease Social History Smoking Status: Never Smoker Marital Status: Housing Status: lives alone Occupation Status: retired Hx Tobacco Use In Past Year?: No Smoking Status: Never Smoker Marital status: Occupational Status: retired Immunizations History of Influenza Vaccine: Yes History of Tetanus Vaccine?: Unknown History of Pneumococcal: Yes History of Hepatitis B Vaccine: Unknown History of MDRO History of MDRO: No Allergies Coded Allergies: Doxycycline (Verified Allergy, Severe, RASH, 09/22/16) Trimethoprim (Verified Allergy, Severe, RASH, 09/22/16) Adhesives (Verified Allergy, Unknown, HAD RXN TO [employer] PATCHES, ) Carbamazepine (Verified Allergy, Unknown, 09/22/16) Hydantoins (Verified Allergy, Unknown, 09/22/16) Penicillins (Verified Allergy, Unknown, AMOXIL, 09/22/16) Phenytoin (Verified Allergy, Unknown, 09/22/16) Current Medications Reported Home Medications Medications Dose Route/Sig Max Daily Dose Days Date Category Vitamin D3 (Cholecalciferol) 1,000 Unit Tab 1 Tab PO DAILY 30 09/22/16 Reported Colace (Docusate Sodium) 100 Mg Cap 1 Cap PO BID 15 09/22/16 Reported Synthroid (Levothyroxine Sodium) 75 Mcg Tab 75 Mcg PO DAILY 09/22/16 Reported Vitamin B-12 (Cyanocobalamin) 1,000 Mcg Tab 1,000 Mcg PO DAILY 09/22/16 Reported Protonix (Pantoprazole Sodium) 20 Mg Tab 20 Mg PO BID 09/22/16 Reported Pravachol (Pravastatin Sodium) 20 Mg Tab 20 Mg PO HS 06/12/14 Reported Tiazac (Diltiazem HCl) 240 Mg Capcr 240 Mg PO DAILY 06/12/14 Reported Zestril (Lisinopril) 20 Mg Tab 20 Mg PO Q12HR 06/13/08 Reported Physical Physical Exam Vital Signs: Date Time Temp Pulse Resp B/P Pulse Ox O2 Delivery O2 Flow Rate FiO2 09/23/16 12:31 36.6 66 26 106/36 93 6.0 09/23/16 12:00 95 Nasal Cannula 6.0 Humidified Oxygen 09/23/16 11:11 36.6 64 22 92/85 95 8.0 09/23/16 10:00 36.4 71 29 93/47 88 6.0 09/23/16 09:30 36.4 60 26 93/45 91 6.0 09/23/16 09:15 36.4 62 56 80/51 92 6.0 09/23/16 08:41 36.3 62 29 94/49 92 6.0 09/23/16 08:02 69 16 103/56 91 Nasal Cannula 5.0 09/23/16 08:00 95 Nasal Cannula 6.0 Humidified Oxygen 09/23/16 06:46 92/68 09/23/16 06:46 115/46 09/23/16 04:04 36.6 60 22 92/49 96 Room Air 09/23/16 04:00 95 Nasal Cannula 6.0 Humidified Oxygen 09/22/16 23:59 37.1 74 21 108/53 96 09/22/16 23:59 96 Nasal Cannula 5.0 Humidified Oxygen 09/22/16 21:00 96 Nasal Cannula 5.0 09/22/16 20:38 37.1 81 30 126/64 96 Nasal Cannula 6.0 09/22/16 20:03 74 20 114/61 95 09/22/16 19:01 121/54 09/22/16 18:41 82 29 95 09/22/16 18:11 81 31 95 09/22/16 18:06 82 09/22/16 18:01 118/64 09/22/16 17:41 80 31 95 09/22/16 17:11 76 27 95 09/22/16 17:06 127/52 3/14/17 16:31 111/57 09/22/16 16:26 76 26 96 09/22/16 16:01 118/52 09/22/16 16:01 74 20 118/52 96 09/22/16 15:56 78 26 91 09/22/16 15:31 107/53 09/22/16 15:26 76 28 95 09/22/16 15:24 77 22 112/58 96 6.0 09/22/16 15:22 112/58 09/22/16 15:20 78 18 64/46 09/22/16 15:19 68/46 09/22/16 14:26 83 20 93 09/22/16 14:10 93 Nasal Cannula 6.0 09/22/16 14:06 91 Nasal Cannula 6.0 09/22/16 14:05 88 09/22/16 14:04 115/52 09/22/16 14:02 81 Room Air 09/22/16 14:02 37.5 92 28 115/52 81 Room Air General Appearance: mild distress Head: NORMOCEPHALIC, ATRAUMATIC Eyes: PERRLA, NO DISCHARGE, EOMI, SCLERAE NORMAL ENT: NORMAL EAR EXAM, NORMAL NASAL EXAM, NORMAL MOUTH EXAM Neck: NORMAL RANGE OF MOTION, NO TENDERNESS, other (1+JVD) Respiratory: rhonchi, wheezing Cardiovasular: irregular rate, abnormal rhythm, systolic murmur, diastolic murmur Abdomen: NON TENDER, NORMAL BOWEL SOUNDS, NO REBOUND, NO MASSES Genitourinary - Female: EXTERNAL GENITALIA NORMAL Back: NORMAL INSPECTION, NO MIDLINE TENDERNESS, NO CVA TENDERNESS, NO PARAVERTEBRAL TTP, NORMAL RANGE OF MOTION Lower Extremities: NO EDEMA, NO DEFORMITY, NORMAL ROM Pulses: carotid (R) (1+), carotid (L) (1+), posterior tibial (R), posterior tibial (L) (2+) Neuro: ALERT, ORIENTED x 3, NORMAL MOTOR EXAM, NORMAL SENSATION, NORMAL CEREBELLAR EXAM Reflexes: biceps (R) (2+), bicpes (L) (2+) Babinski Testing: right (downgoing), left (downgoing) Psychiatric: NORMAL AFFECT, NO SUICIDAL IDEATION Diagnostics Labs Results Past 24 Hours Test 09/22/16 14:41 09/22/16 14:45 09/23/16 05:28 Range/Units White Blood Count 13.80 10.69 4.8-10.8 K/uL Red Blood Count 2.07 1.90 4.2-5.4 M/uL Hemoglobin 6.8 6.1 12.0-16.0 g/dL Hematocrit 19.9 18.4 37-47 % Mean Corpuscular Volume 96.1 96.8 80-100 fL Mean Corpuscular Hemoglobin 32.9 32.1 25-34 pg Mean Corpuscular Hemoglobin Concent 34.2 33.2 32-36 g/dl Platelet Count 206 183 130-400 K/uL Mean Platelet Volume 8.9 9.0 7.4-10.4 fL Neutrophils (%) (Auto) 85.4 90.0 % Lymphocytes (%) (Auto) 6.4 8.1 % Monocytes (%) (Auto) 7.1 1.2 % Eosinophils (%) (Auto) 0.1 0.0 % Basophils (%) (Auto) 0.2 0.0 % Neutrophils # (Auto) 11.78 9.62 1.4-6.5 K/uL Lymphocytes # (Auto) 0.89 0.87 1.2-3.4 K/uL Monocytes # (Auto) 0.98 0.13 0.11-0.59 K/uL Eosinophils # (Auto) 0.01 0.00 0-0.5 K/uL Basophils # (Auto) 0.03 0.00 0-0.2 K/uL RDW Standard Deviation 60.1 61.6 36.4-46.3 fL RDW Coefficient of Variation 17.9 18.2 11.5-14.5 % Immature Granulocyte % (Auto) 0.8 0.7 % Immature Granulocyte # (Auto) 0.11 0.07 0.00-0.02 K/uL Polychromasia 1+ 1+ Anisocytosis PRESENT PRESENT Microcytosis PRESENT Prothrombin Time 10.7 10.9 9.0-12.0 SECONDS Prothromb Time International Ratio 1.0 1.0 0.9-1.1 Activated Partial Thromboplast Time 19.4 26.4 21.0-31.0 SECONDS Partial Thromboplastin Ratio 0.7 1.0 D-Dimer 1780 0-500 ug/L FEU Sodium Level 139 139 136-145 mmol/L Potassium Level 4.4 4.1 3.5-5.1 mmol/L Chloride Level 108 110 98-107 mmol/L Carbon Dioxide Level 20 19 21-32 mmol/L Anion Gap 11.0 10.0 3-11 mmol/L Blood Urea Nitrogen 30 36 7-18 mg/dl Creatinine 2.10 1.90 0.60-1.20 mg/dl Estimated GFR () 23.8 26.8 Estimated GFR (Non- 20.5 23.1 BUN/Creatinine Ratio 14.0 18.8 10-20 Random Glucose 160 177 70-99 mg/dl Calcium Level 8.3 8.0 8.5-10.1 mg/dl Total Bilirubin 1.4 0.2-1 mg/dl Aspartate Amino Transf (AST/SGOT) 76 15-37 U/L Alanine Aminotransferase (ALT/SGPT) 81 12-78 U/L Alkaline Phosphatase 145 45-117 U/L Total Protein 6.8 6.4-8.2 gm/dl Albumin 3.3 3.4-5.0 gm/dl Globulin 3.5 2.5-4.0 gm/dl Albumin/Globulin Ratio 0.9 0.9-2 Bedside Lactic Acid Venous 1.38 0.90-1.70 mmol/L Est Creatinine Clear Calc Drug Dose 17.7 ml/min Magnesium Level 2.2 1.8-2.4 mg/dl Microbiology Results 09/22/16 Blood Culture, Received Pending 09/22/16 Blood Culture, Received Pending Diagnostic Radiology CXR: diffuse bilateral airspace opacities and trace bilateral pleural effusions Non-contrast CT Thorax: small pleural effusions, right larger than left with associated bibasilar atelectasis diffuse intralobular septal thickening is noted diffuse bilateral airspace opacities in a perihilar distribution trachea and central airways appear clear. numerous prominent mediastinal lymph nodes Calcified mediastinal nodes are observed calcified right hilar nodes EKG NSR possible LVH Impression Assessment and Plan 86-year-old female admitted with hypoxia, hemoptysis and acute on chronic renal failure: #1 Hypoxemia: The etiology are patient's hypoxemia is difficult to discern. She has a complicated past medical history with vasculitic associated dysfunction/ AIN/nephrotic syndrome from Dilantin therapy. At this time I'll patient could be having combination of heart failure/aortic stenosis, infection, vasculitis or even repeat pulmonary embolism. Suggest we initiate broad-spectrum antibiotic therapy with cefepime(third-generation cephalosporin), steroid dosing of prednisone 0.5 mg/kg, close monitoring patient's ins and outs keeping her even over the next 24 hours and upper and lower extremity Doppler examinations. If patient does have lower extremity DVTs placement of IVC filter may be warranted.
--- NOTE | 2016-09-23 14:06 | Medical Student: [facility] ---
Med Student Progress Note Date of Service Sep 23, 2016. Subjective Pt evaluation today including: conversation w/ patient Mrs. Rivera is a 86 year old female with past medical history significant for afib, aortic stenosis, CKD, CHF, HTN, and history of nephrotic syndrome who presented to ED yesterday for shortness of breath and 2 episodes of hemoptysis being treated for hypoxia and anemia. Per RN patient's blood pressure has been in 90s/60s. Received saline bolus early this AM. Patient desaturated to 88% early AM, back to mid 90s with o2 mask. No events per tele overnight. Patient states she is feeling a little bit better than yesterday. Notes shortness of breathing improved with oxygen. Denies cough or hemoptysis. States feels very fatigued. States she slept okay and her appetite is good. Denies fever, chills, chest pain, palpitations, hematuira, blood in stools, difficulty breathing, cough, swelling. Review of Systems Constitutional: + fatigue, No chills, No fever Respiratory: No cough, No hemoptysis, No shortness of breath (with oxygen), No sputum, No wheezing Cardiac: No PND, No chest pain, No edema, No orthopnea, No palpitations Abdomen: No GI bleeding, No constipation, No diarrhea, No nausea, No pain, No vomiting Musculoskeletal: No calf pain, No swelling Female : No dysuria, No hematuria, No urinary frequency Objective Vital Signs Date Time Temp Pulse Resp B/P Pulse Ox O2 Delivery O2 Flow Rate FiO2 09/23/16 13:09 36.5 66 32 106/46 93 6.0 09/23/16 12:52 36.6 66 28 110/45 93 6.0 09/23/16 12:31 36.6 66 26 106/36 93 6.0 09/23/16 12:00 36.5 67 32 106/46 93 Nasal Cannula 6.0 09/23/16 12:00 95 Nasal Cannula 6.0 Humidified Oxygen 09/23/16 11:11 36.6 64 22 92/85 95 8.0 09/23/16 10:00 36.4 71 29 93/47 88 6.0 09/23/16 09:30 36.4 60 26 93/45 91 6.0 09/23/16 09:15 36.4 62 56 80/51 92 6.0 09/23/16 08:41 36.3 62 29 94/49 92 6.0 09/23/16 08:02 69 16 103/56 91 Nasal Cannula 5.0 09/23/16 08:00 95 Nasal Cannula 6.0 Humidified Oxygen 09/23/16 06:46 92/68 09/23/16 06:46 115/46 09/23/16 04:04 36.6 60 22 92/49 96 Room Air 09/23/16 04:00 95 Nasal Cannula 6.0 Humidified Oxygen 09/22/16 23:59 37.1 74 21 108/53 96 09/22/16 23:59 96 Nasal Cannula 5.0 Humidified Oxygen 09/22/16 21:00 96 Nasal Cannula 5.0 09/22/16 20:38 37.1 81 30 126/64 96 Nasal Cannula 6.0 09/22/16 20:03 74 20 114/61 95 09/22/16 19:01 121/54 09/22/16 18:41 82 29 95 09/22/16 18:11 81 31 95 09/22/16 18:06 82 09/22/16 18:01 118/64 09/22/16 17:41 80 31 95 09/22/16 17:11 76 27 95 09/22/16 17:06 127/52 09/22/16 16:31 111/57 09/22/16 16:26 76 26 96 09/22/16 16:01 118/52 09/22/16 16:01 74 20 118/52 96 09/22/16 15:56 78 26 91 09/22/16 15:31 107/53 09/22/16 15:26 76 28 95 09/22/16 15:24 77 22 112/58 96 6.0 09/22/16 15:22 112/58 09/22/16 15:20 78 18 64/46 09/22/16 15:19 68/46 09/22/16 14:26 83 20 93 09/22/16 14:10 93 Nasal Cannula 6.0 09/22/16 14:06 91 Nasal Cannula 6.0 09/22/16 14:05 88 Physical Exam General Appearance: WD/WN, + moderate distress, + thin Neck: supple, no JVD, no carotid bruits Respiratory/Chest: lungs clear, normal breath sounds, + respiratory distress, + decreased breath sounds (bibasilar) Cardiovascular: regular rate, rhythm, no edema, no gallop, no JVD, + systolic murmur Abdomen: normal bowel sounds, non tender, soft, no organomegaly Extremities: non-tender, normal inspection, no pedal edema, no calf tenderness Neurologic/Psychiatric: alert, normal mood/affect, oriented x 3 Skin: normal color, no rash Laboratory Results Last 24 Hours Test 09/22/16 14:41 09/22/16 14:45 09/23/16 05:28 White Blood Count 13.80 K/uL 10.69 K/uL Red Blood Count 2.07 M/uL 1.90 M/uL Hemoglobin 6.8 g/dL 6.1 g/dL Hematocrit 19.9 % 18.4 % Mean Corpuscular Volume 96.1 fL 96.8 fL Mean Corpuscular Hemoglobin 32.9 pg 32.1 pg Mean Corpuscular Hemoglobin Concent 34.2 g/dl 33.2 g/dl Platelet Count 206 K/uL 183 K/uL Mean Platelet Volume 8.9 fL 9.0 fL Neutrophils (%) (Auto) 85.4 % 90.0 % Lymphocytes (%) (Auto) 6.4 % 8.1 % Monocytes (%) (Auto) 7.1 % 1.2 % Eosinophils (%) (Auto) 0.1 % 0.0 % Basophils (%) (Auto) 0.2 % 0.0 % Neutrophils # (Auto) 11.78 K/uL 9.62 K/uL Lymphocytes # (Auto) 0.89 K/uL 0.87 K/uL Monocytes # (Auto) 0.98 K/uL 0.13 K/uL Eosinophils # (Auto) 0.01 K/uL 0.00 K/uL Basophils # (Auto) 0.03 K/uL 0.00 K/uL RDW Standard Deviation 60.1 fL 61.6 fL RDW Coefficient of Variation 17.9 % 18.2 % Immature Granulocyte % (Auto) 0.8 % 0.7 % Immature Granulocyte # (Auto) 0.11 K/uL 0.07 K/uL Polychromasia 1+ 1+ Anisocytosis PRESENT PRESENT Microcytosis PRESENT Prothrombin Time 10.7 SECONDS 10.9 SECONDS Prothromb Time International Ratio 1.0 1.0 Activated Partial Thromboplast Time 19.4 SECONDS 26.4 SECONDS Partial Thromboplastin Ratio 0.7 1.0 D-Dimer 1780 ug/L FEU Sodium Level 139 mmol/L 139 mmol/L Potassium Level 4.4 mmol/L 4.1 mmol/L Chloride Level 108 mmol/L 110 mmol/L Carbon Dioxide Level 20 mmol/L 19 mmol/L Anion Gap 11.0 mmol/L 10.0 mmol/L Blood Urea Nitrogen 30 mg/dl 36 mg/dl Creatinine 2.10 mg/dl 1.90 mg/dl Estimated GFR () 23.8 26.8 Estimated GFR (Non- 20.5 23.1 BUN/Creatinine Ratio 14.0 18.8 Random Glucose 160 mg/dl 177 mg/dl Calcium Level 8.3 mg/dl 8.0 mg/dl Total Bilirubin 1.4 mg/dl Aspartate Amino Transf (AST/SGOT) 76 U/L Alanine Aminotransferase (ALT/SGPT) 81 U/L Alkaline Phosphatase 145 U/L Total Protein 6.8 gm/dl Albumin 3.3 gm/dl Globulin 3.5 gm/dl Albumin/Globulin Ratio 0.9 Bedside Lactic Acid Venous 1.38 mmol/L Est Creatinine Clear Calc Drug Dose 17.7 ml/min Magnesium Level 2.2 mg/dl Medications Current Inpatient Medications Medications (Trade) Dose Ordered Sig/Phillip Route Start Time Stop Time Status Last Admin Dose Admin Sodium Chloride (Nss 1000ml) 1,000 ml @ 75 mls/hr [id number] IV 09/22/16 19:06 10/22/16 19:05 09/23/16 07:27 75 MLS/HR Acetaminophen (Tylenol Tab) 650 mg Q4H PRN PO 09/22/16 19:15 10/22/16 19:14 Zolpidem Tartrate (Ambien Tab) 5 mg HSZ PRN PO 09/22/16 19:15 10/22/16 19:14 Diltiazem HCl (TIAzac CAP) 120 mg BID PO 09/22/16 21:00 10/22/16 20:59 09/22/16 21:26 120 MG Levothyroxine Sodium (Synthroid Tab) 75 mcg DAILYBB PO 09/23/16 06:00 10/23/16 06:59 09/23/16 05:35 75 MCG Ondansetron HCl 4 mg 4 mg Q6H PRN IV 09/22/16 19:15 10/22/16 19:14 Pantoprazole Sodium 40 mg/ Syringe 10 ml @ 5 mls/min DAILY@09,21 IV 09/22/16 21:00 10/22/16 20:59 09/23/16 07:27 5 MLS/MIN Methylprednisolone Sodium Succinate/ Syringe (Solu-Medrol IV/ Syringe) 0.96 ml @ 1.5 mls/min Q6H IV 09/23/16 00:00 10/23/16 00:00 09/23/16 12:50 1.5 MLS/MIN Albuterol/ Ipratropium 3 ml 3 ml QIDR INH 09/23/16 12:00 10/23/16 11:59 Cefepime HCl/ Dextrose (Maxipime IV/D5 100ml) 112.5 ml @ 200 mls/hr BID@0200,1400 IV 09/23/16 14:00 09/30/16 13:59 Azithromycin (Zithromax Tab) 500 mg QAM PO 09/23/16 14:00 09/30/16 13:59 Assessment and Plan Assessment and Plan: Mrs. Rivera is a 86 year old female with past medical history of afib, aortic stenosis, CKD, CHF, HTN being treated for hypoxia and anemia. 1. Acute respiratory failure - Chest Xray and CT revealed diffuse bilateral opacities and effusions. Likely due to pulmonary hemorrhage due to pneumonia, CHF exacerbation possibly due to severe aortic stenosis, vasculitis or combination. PE also possibility. Patient has history of PE due to history of nephrotic syndrome. Due to hemorrhage and renal function would not do further testing at this time, would not affect management. EKG did not reveal arrhythmia or ischemic changes thus less likely due to UT, arrhythmia. - Continue IV methylprednisolone sodium succinate - Per pulmonology, begin high flow O2 - Begin azithromycin and cefepime - Monitor oxygen saturation, aim for >92% - Check troponin levels 2. Hemoptysis - Likely due to pulmonary hemorrhage either due to PNA, vasculitis , CHF exacerbation/aortic stenosis. Less likely GI cause. Denies history of GERD , ulcers. - Treat possible underlying causes - Not stable for endoscopy or bronchoscopy - Consider heme occult test 3. Anemia - Likely due to acute blood loss or chronic renal disease. Less likely cause iron deficiency however could be in combination. Hemoglobin dropped from 6.8 to 6.1 today. - Transfuse blood, aim for hemoglobin above 7 - Order iron studies - Continue to monitor hemoglobin 4. Hypotension - Likely due to hypovolemia, blood loss. - Continue fluids - Continue to monitor blood pressures 4. Acute ANA PAULA on chronic kidney disease. BUN increase from 30 to 36 today. Creatinine decreased from 2.1 to 1.9 today. BUN/creatinine ratio is 18.8. Patient has significant history of nephrotic syndrome as well as nephritic syndrome resulting from Dilantin use. Blood found to have increased amount of unusual antibodies. Possible vasculitis etiology such as [place] past[place], collagen vascular disease, ANCA granulomatosis, though unusual considering her age. Could also explain pulmonary hemorrhage. Would not consider biopsy at this time, patient not stable. - Continue fluids - Order nephrology consult - Monitor BMP, renal profile - Consider urinalysis to look for proteinuria, hematuria, casts - Avoid nephrotoxic drugs - Renally dose all medications 5. Chronic afib - Normal sinus rhythm per EKG. Rate and rhythm well controlled. Heart rate stable in 60-80s. [id number] vasc score calculated at 7, 11.2 % of ischemic stroke rate. HAS-BLED score at 2, 4.1% bleeding risk. - Due to hemorrhage would not consider anticoagulation at this point - Continue telemetry - Continue diltiazem 120 mg BID 6. Chronic aortic stenosis - Follows with Dr. Sanon in cardiology. Recent echo in 2015 revealed MANAS of 0.7 cm2. Ejection fraction 65-70%. - Patient not stable for valvular replacement at this time 7. Acute on Chronic CHF - CXR revealed pleural effusion possibly due to CHF exacerbation due to severe and HTN. However patient is not fluid overloaded clinically. - Hold lisinopril due to ANA PAULA - Would not consider diuretics due to hypovolemic/hypotensive state - Monitor I/O 8. Chronic HTN - Patient is hypotensive likely due to hypovolemia - Continue fluids - Monitor blood pressures 9. Hypothyroidism - Last TSH done in July 2015 revealed TSH of 0.71. Within normal limit. - Obtain TSH. Likely may be high due to stress. - Continue Synthroid 75 mcg daily. 10. DVT prophylaxis/ GI prophylaxis - Continue Pantoprazole IV - Would not consider anticoagulating due to hemorrhage Continued [facility] stay due to: abnormal vital signs, multiple IV medications needed Discharge planning: uncertain
[2016-09-23] MEDS: ALBUT/IPRATROP 3MG/0.5MG NEB 3 ML VIAL INH SCH ×2 (15:17→19:27)
[2016-09-23] MEDS: AZITHROMYCIN 250 MG TAB PO SCH (16:27)
[2016-09-23] MEDS: CEFEPIME IV 2,000 MG in DEXTROSE 5% 100ML 100 ML IV SCH (16:27)
[2016-09-23] MEDS: GUAIFENESIN/CODEINE 200MG/20MG 10ML UDC PO PRN (16:27)
[2016-09-23] MEDS ORDERED: FUROSEMIDE INJ 20 MG in SYRINGE 0 ML IV ONE (16:45)
[2016-09-23] MEDS ORDERED: FUROSEMIDE 40 MG/4 ML VIAL IV STA (17:37)
[2016-09-23 17:45] LABS: C-REACTIVE PROTEIN 9.21 mg/dl (0-0.29)
[2016-09-23] MEDS ORDERED: FUROSEMIDE INJ 40 MG in SYRINGE 0 ML IV SCH (17:45)
[2016-09-23 18:10] LABS: URINE APPEARANCE CLEAR (CLEAR); URINE BILIRUBIN NEG (NEG); URINE COLOR YELLOW; URINE EPITHELIAL CELL AUTO >30 /lpf (0-5); URINE NITRITE NEG (NEG); URINE SPECIFIC GRAVITY 1.007 (1.000-1.030); UROBILINOGEN NEG (NEG)
[2016-09-23 18:17] LABS: MANUAL MICROSCOPIC REQUIRED? NO; REVIEW REQ? NO
--- NOTE | 2016-09-23 18:25 | Nephrology Consultation ---
Nephrology Consultation Date & Providers Date of Consultation: Sep 23, 2016. Primary Care Provider: Eugenio Cardenas M.D. Referring Provider: Reason for Consultation Evaluation and management for ANA PAULA with h/o CKD History of Present Illness Anusha is a 78-year-old female with past medical history significant for dialysis requiring acute kidney injury, nephrotic syndrome, hypertension, history of severe aortic stenosis admitted to the hospital with shortness of breath and hemoptysis. Nephrology consult was requested as she is found to have acute kidney injury P.M. electronic medical records reviewed in detail during patient' s visit. She was having progressive shortness of breath and hemoptysis over the last few days and on admission found to have anemia, hemoglobin was 6.8. She was also found to have acute kidney injury, creatinine was 2.1 with her baseline creatinine variable from 1.[address] scan of chest on admission showed diffuse pulmonary opacity around hilar region concerning for possible pulmonary vascular congestion versus pulmonary hemorrhage. She received 2 units of blood transfusion and hemoglobin this afternoon improved to 8.4. She continues to require high flow nasal cannula oxygen and still oxygen saturation staying around 89-90 percent and clinically she seems to be in [id number] respiratory distress. At baseline she has stage III CKD, creatinine variable from 1.2-1.4. She had pulmonary embolism in 2007, as part of evaluation she was found to have nephrotic syndrome, she had almost 20 grams of proteinuria. At that time serological workup was unremarkable, as she was on anticoagulation, she did not have a kidney biopsy done. 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 Eventually she was started on Neoral but her renal function continues to decline and she was started on dialysis in June 2008. Continue on dialysis until October 2008 when her kidney function recovered and she was taken off on dialysis. Proteinuria resolved. Subsequently she had another episode of acute kidney injury in 2013 which was thought to be due to acute interstitial nephritis in the setting of multiple antibiotic dose. Her kidney function again improved and lately she has been in stage III CKD and has been having pretty decent renal function with baseline creatinine in 1.2-1.4. She has been off of anticoagulant unclear since when. She has been having a urine output however not measured. Urinalysis pending but in July was negative for proteinuria or hematuria. She denies any recent antibiotic use that noted give much details about her high pressures taking any NSAID or not. Denies any skin rash, nausea, fever, chills or any recent change in weight. Appetite has been poor. Allergies Coded Allergies: Doxycycline (Verified Allergy, Severe, RASH, 09/22/16) Trimethoprim (Verified Allergy, Severe, RASH, 09/22/16) Adhesives (Verified Allergy, Unknown, HAD RXN TO HOLTER MONITOR PATCHES, ) Carbamazepine (Verified Allergy, Unknown, 09/22/16) Hydantoins (Verified Allergy, Unknown, 09/22/16) Penicillins (Verified Allergy, Unknown, AMOXIL, 09/22/16) Phenytoin (Verified Allergy, Unknown, 09/22/16) Inpatient Medications Current Inpatient Medications Medications (Trade) Dose Ordered Sig/Phillip Route Start Time Stop Time Status Last Admin Dose Admin Sodium Chloride (Nss 1000ml) 1,000 ml @ 75 mls/hr [id number] IV 09/22/16 19:06 10/22/16 19:05 09/23/16 07:27 75 MLS/HR Acetaminophen (Tylenol Tab) 650 mg Q4H PRN PO 09/22/16 19:15 10/22/16 19:14 Zolpidem Tartrate (Ambien Tab) 5 mg HSZ PRN PO 09/22/16 19:15 10/22/16 19:14 Diltiazem HCl (TIAzac CAP) 120 mg BID PO 09/22/16 21:00 10/22/16 20:59 09/22/16 21:26 120 MG Levothyroxine Sodium (Synthroid Tab) 75 mcg DAILYBB PO 09/23/16 06:00 10/23/16 06:59 09/23/16 05:35 75 MCG Ondansetron HCl 4 mg 4 mg Q6H PRN IV 09/22/16 19:15 10/22/16 19:14 Pantoprazole Sodium 40 mg/ Syringe 10 ml @ 5 mls/min DAILY@09,21 IV 09/22/16 21:00 10/22/16 20:59 09/23/16 07:27 5 MLS/MIN Methylprednisolone Sodium Succinate/ Syringe (Solu-Medrol IV/ Syringe) 0.96 ml @ 1.5 mls/min Q6H IV 09/23/16 00:00 10/23/16 00:00 09/23/16 12:50 1.5 MLS/MIN Albuterol/ Ipratropium 3 ml 3 ml QIDR INH 09/23/16 12:00 10/23/16 11:59 Cefepime HCl/ Dextrose (Maxipime IV/D5 100ml) 112.5 ml @ 200 mls/hr BID@0200,1400 IV 09/23/16 14:00 09/30/16 13:59 09/23/16 16:27 200 MLS/HR Azithromycin (Zithromax Tab) 500 mg QAM PO 09/23/16 14:00 09/30/16 13:59 09/23/16 16:27 500 MG Codeine Phosphate/ Guaifenesin (Robitussin-AC Sugar Free Syrup) 10 ml Q6H PRN PO 09/23/16 16:00 10/23/16 15:59 09/23/16 16:27 10 ML Family History Heart disease Social History Smoking Status: Never Smoker Smokeless Tobacco Use: No Alcohol Use: none Drug Use: none Marital Status: 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 Review of Systems A complete review of systems was performed. Pertinent positives are noted above. All other systems are negative. Physical Exam Date Time Temp Pulse Resp B/P Pulse Ox O2 Delivery O2 Flow Rate FiO2 09/23/16 16:28 118/62 09/23/16 14:46 36.7 71 24 109/54 95 40.0 09/23/16 14:00 36.6 68 28 95/48 91 6.0 09/23/16 13:09 36.5 66 32 106/46 93 6.0 09/23/16 12:52 36.6 66 28 110/45 93 6.0 09/23/16 12:31 36.6 66 26 106/36 93 6.0 09/23/16 12:00 36.5 67 32 106/46 93 Nasal Cannula 6.0 09/23/16 12:00 95 Nasal Cannula 6.0 Humidified Oxygen 09/23/16 11:11 36.6 64 22 92/85 95 8.0 09/23/16 10:00 36.4 71 29 93/47 88 6.0 09/23/16 09:30 36.4 60 26 93/45 91 6.0 09/23/16 09:15 36.4 62 56 80/51 92 6.0 09/23/16 08:41 36.3 62 29 94/49 92 6.0 09/23/16 08:02 69 16 103/56 91 Nasal Cannula 5.0 09/23/16 08:00 95 Nasal Cannula 6.0 Humidified Oxygen 09/23/16 06:46 92/68 09/23/16 06:46 115/46 09/23/16 04:04 36.6 60 22 92/49 96 Room Air 09/23/16 04:00 95 Nasal Cannula 6.0 Humidified Oxygen 09/22/16 23:59 37.1 74 21 108/53 96 09/22/16 23:59 96 Nasal Cannula 5.0 Humidified Oxygen 09/22/16 21:00 96 Nasal Cannula 5.0 09/22/16 20:38 37.1 81 30 126/64 96 Nasal Cannula 6.0 09/22/16 20:03 74 20 114/61 95 09/22/16 19:01 121/54 09/22/16 18:41 82 29 95 09/22/16 18:11 81 31 95 09/22/16 18:06 82 09/22/16 18:01 118/64 09/22/16 17:41 80 31 95 GENERAL: AAA x 3, pleasant, ill-appearing, in mild to moderate respiratory distress. HEENT: Atraumatic, normocephalic. NECK: Supple, no JVD, no carotid bruit appreciated. ENT: No sinus tenderness MOUTH and THROAT: Moist oral mucosa, no oral ulcer or pharyngeal erythema RESPIRATORY: coarse crackles bilaterally CARDIOVASCULAR: S1, S2 normal, rate rhythm regular. ABDOMEN: Soft, nontender, positive bowel sound. MUSCULOSKELETAL: No CVA tenderness. No joint swelling, erythema or tenderness. Normal range of motion. SKIN: No skin rash EXTREMITY: No lower extremity edema NEURO: No gross focal neurological deficit, speech fluent. PSYCHIATRY: Normal mood and judgment Laboratory Results Last 24 Hours Test 09/23/16 05:28 09/23/16 14:32 09/23/16 15:57 09/23/16 16:59 White Blood Count 10.69 K/uL Red Blood Count 1.90 M/uL Hemoglobin 6.1 g/dL 8.4 g/dL Hematocrit 18.4 % 25.0 % Mean Corpuscular Volume 96.8 fL Mean Corpuscular Hemoglobin 32.1 pg Mean Corpuscular Hemoglobin Concent 33.2 g/dl Platelet Count 183 K/uL Mean Platelet Volume 9.0 fL Neutrophils (%) (Auto) 90.0 % Lymphocytes (%) (Auto) 8.1 % Monocytes (%) (Auto) 1.2 % Eosinophils (%) (Auto) 0.0 % Basophils (%) (Auto) 0.0 % Neutrophils # (Auto) 9.62 K/uL Lymphocytes # (Auto) 0.87 K/uL Monocytes # (Auto) 0.13 K/uL Eosinophils # (Auto) 0.00 K/uL Basophils # (Auto) 0.00 K/uL RDW Standard Deviation 61.6 fL RDW Coefficient of Variation 18.2 % Immature Granulocyte % (Auto) 0.7 % Immature Granulocyte # (Auto) 0.07 K/uL Polychromasia 1+ Anisocytosis PRESENT Prothrombin Time 10.9 SECONDS Prothromb Time International Ratio 1.0 Activated Partial Thromboplast Time 26.4 SECONDS Partial Thromboplastin Ratio 1.0 Sodium Level 139 mmol/L Potassium Level 4.1 mmol/L Chloride Level 110 mmol/L Carbon Dioxide Level 19 mmol/L Anion Gap 10.0 mmol/L Blood Urea Nitrogen 36 mg/dl Creatinine 1.90 mg/dl Est Creatinine Clear Calc Drug Dose 17.7 ml/min Estimated GFR () 26.8 Estimated GFR (Non- 23.1 BUN/Creatinine Ratio 18.8 Random Glucose 177 mg/dl Calcium Level 8.0 mg/dl Magnesium Level 2.2 mg/dl Creatine Kinase MB Ratio Creatine Kinase MB 1.8 ng/ml Pro-B-Type Natriuretic Peptide 44277 pg/ml Impression (1) ANA PAULA (acute kidney injury) (2) Metabolic acidosis (3) Hemoptysis (4) Anemia (5) Aortic Valve Disorder (6) Chronic Kidney Disease, Unspecified (7) Hypertension Nos Anusha is a 86-year-old female with the acute kidney injury, prior history of dialysis requiring acute kidney injury with recovery, chronic kidney disease, prior history of nephrotic syndrome, history of seizure disorder, severe aortic stenosis and history of pulmonary embolism before. 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 She has been on high-flow nasal cannula oxygen but her oxygen saturations stain and 89-90 percent and she continues to have significant respiratory distress. She was seen by Pulmonary and started on high dose steroid. Has baseline stage 3 chronic kidney disease creating 1.2-1.4, prior history of nephrotic syndrome and dialysis requiring acute kidney injury in 2007 with significant recovery. Prior urinalysis was unremarkable, urine amylase is 2 days pending. On admission yesterday creatinine was 2.1 which is slightly improved to 1.9 this morning. Has non gap metabolic acidosis and bicarbonate staying an 19-20. She has been non oliguria. Possibility for pulmonary congestion from severe aortic stenosis causing hemoptysis is possible. No recent 2D echo available in the record. 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 Recommendations --we will start her on pulse dose steroids pending inflammatory markers and UA --Lasix 40 milligrams IV x1 dose now --Discontinue IV fluid --monitor intake and output --We will order ANCA level --Suggest getting a 2D echo for further evaluation of history of aortic stenosis. --patient clearly expressed that she does not want aggressive interventions, does not want resuscitation or plasmapheresis or even transfer to another facility. --check H&H every 12 hours -- monitor renal panel daily --start on oral sodium bicarb 650 milligram twice a day --discussed in detail with the patient's son Travis over telephone and answered questions ) Thank you for allowing me to participate in your patient's care. It was a pleasure to see Anusha This chart was completed utilizing [employer] Speech and voice recognition software. Grammatical errors, random word insertions, pronoun errors and incomplete sentences are occasional consequences of this system. Any questions or concerns about the content, text or information contained within the body of this dictation should be addressed directly to the physician for clarification.
[2016-09-23] MEDS ORDERED: METHYLPREDNISOLONE 125 MG VIAL IV STA (18:26)
[2016-09-23 18:34] LABS: URINE TOTAL PROTEIN 25.5 mg/dl (0-11.9)
[2016-09-23] MEDS ORDERED: METHYLPREDNISOLONE IV 500 MG in DEXTROSE 5% 250ML 250 ML IV ONE (18:45)
[2016-09-23 20:44] LABS: URINE PROTIEN/CREAT RATIO 0.5 (0-0.2)
[2016-09-23] MEDS: SODIUM BICARBONATE 650 MG TAB PO SCH (21:12)
--- NOTE | 2016-09-23 21:26 | DIAGNOSTIC IMAGING REPORT ---
BILATERAL LOWER EXTREMITY VENOUS DOPPLER CLINICAL HISTORY: Anemia. Hemoptysis. COMPARISON STUDY: Bilateral lower extremity venous Doppler June 18, 2008. TECHNIQUE: Sonography of the deep venous system of the bilateral lower extremities was performed. Compression and augmentation were evaluated. FINDINGS: There was no deep venous thrombus within the right lower extremity. Note was made of a suspected right popliteal cyst that measured 3.9 x 1.5 x 0.9 cm. There was thrombus within superficial veins of the left popliteal fossa. No acute deep venous thrombus was identified within the left lower extremity. An echogenic focus along the wall of the left femoral vein is chronic. There is a small left popliteal cyst. IMPRESSION: 1. No evidence of acute deep venous thrombus within the lower extremities. 2. Thrombus within superficial veins of the left popliteal fossa suggestive of superficial thrombophlebitis. 3. Small bilateral popliteal cysts. Electronically signed by: Jason Arzola M.D. 09/23/2016 9:25 PM Dictated Date/Time: 09/23/2016 9:21 PM
--- NOTE | 2016-09-23 21:28 | DIAGNOSTIC IMAGING REPORT ---
BILATERAL UPPER EXTREMITY VENOUS DOPPLER CLINICAL HISTORY: Anemia. Hemoptysis. COMPARISON STUDY: Bilateral upper extremity venous Doppler November 06 2008. FINDINGS: No deep venous thrombus was identified within either upper extremity although evaluation of the left forearm was difficult due to overlying dressings. There was thrombus within the right basilic vein. This represents superficial thrombus. IMPRESSION: 1. No deep venous thrombus within the upper extremities. 2. Superficial thrombus within the right basilic vein. Electronically signed by: Jason Arzola M.D. 09/23/2016 9:27 PM Dictated Date/Time: 09/23/2016 9:25 PM
[2016-09-24] VITALS (16 sets, daily range): BP systolic 107–126; BP diastolic 44–65; PULSE 63–98; TEMP 36.5–38.6; O2SAT 93–98
[2016-09-24] MEDS: CEFEPIME IV 2,000 MG in DEXTROSE 5% 100ML 100 ML IV SCH ×2 (02:32→14:11)
[2016-09-24 06:19] LABS: BASO % 0.1 %; BASO ABS # 0.01 K/uL (0-0.2); HEMATOCRIT 24.8 % (37-47); IG% 0.7 %; LYMPH % 5.7 %; LYMPH ABS # 1.01 K/uL (1.2-3.4); MEAN CELL VOLUME 91.2 fL (80-100); MEAN CORPUSCULAR HEMOGLOBIN 30.5 pg (25-34); MEAN CORPUSCULAR HGB CONC 33.5 g/dl (32-36); MEAN PLATELET VOLUME 9.5 fL (7.4-10.4); NEUT % 90.5 %; PLATELET COUNT 167 K/uL (130-400); RED BLOOD COUNT 2.72 M/uL (4.2-5.4)
[2016-09-24] MEDS: LEVOTHYROXINE 75 MCG TAB PO SCH (06:21)
[2016-09-24 06:25] LABS: PROTHROMBIN TIME (PATIENT) 10.5 SECONDS (9.0-12.0)
[2016-09-24 06:57] LABS: BUN/CREATININE RATIO 24.1 (10-20); CALCIUM 7.9 mg/dl (8.5-10.1); CREATININE 2.1 mg/dl (0.60-1.20); POTASSIUM 3.6 mmol/L (3.5-5.1)
[2016-09-24] MEDS: ALBUT/IPRATROP 3MG/0.5MG NEB 3 ML VIAL INH SCH ×4 (07:03→19:35)
[2016-09-24 07:07] LABS: THYROID STIMULATING HORMONE 0.313 uIu/ml (0.300-4.500)
[2016-09-24 07:08] LABS: COMPLETE YES; POLYCHROMASIA 1+
[2016-09-24] MEDS: SODIUM BICARBONATE 650 MG TAB PO SCH ×2 (07:37→20:44)
[2016-09-24] MEDS: DILTIAZEM HCL 120 MG EXT REL CAP PO SCH ×2 (07:37→20:44)
[2016-09-24] MEDS: AZITHROMYCIN 250 MG TAB PO SCH (07:38)
[2016-09-24] MEDS: PANTOprazole INJ 40 MG in SYRINGE 0 ML IV SCH (07:38)
--- NOTE | 2016-09-24 10:27 | Nephrology Progress Note ---
Nephrology Progress Note Date of Service Sep 24, 2016. Chief Complaint F/U for ANA PAULA with h/o CKD Subjective Anusha was seen and examined in her room this am. Overall feeling better. Cr stable at 2.1, UO decent. BP stable. Review of Systems A complete review of systems was performed. Pertinent positives are noted above. All other systems are negative. Vital Signs Last 8 Hrs Date Time Temp Pulse Resp B/P Pulse Ox O2 Delivery O2 Flow Rate FiO2 09/24/16 08:39 36.5 70 16 119/65 93 High Flow Oxygen 40.0 50 09/24/16 08:35 93 High Flow Oxygen 40.0 50 09/24/16 07:51 36.8 63 22 119/65 96 High Flow Oxygen 40 09/24/16 07:03 98 22 98 Nasal Cannula 40.0 65 09/24/16 04:23 36.7 69 18 111/44 98 High Flow Oxygen 09/24/16 04:00 98 High Flow Oxygen 40.0 50 I & O 24-Hour Column 09/24/16 08:00 Intake Total 2760 ml Output Total 4400 ml Balance -1640 ml Last Recorded Weight Weight (Kilograms): 55.600 Physical Exam GENERAL: elderly female, AAA x 3, pleasant, in mild respiratory distress. NECK: Supple, no JVD. RESPIRATORY crackles B/L CARDIOVASCULAR: S1, S2 normal, rate rhythm regular. EXTREMITY: No lower extremity edema NEURO: speech fluent. PSYCHIATRY: Normal mood and judgment Family History Heart disease Social History Smokeless Tobacco Use: No Alcohol Use: none Drug Use: none Marital Status: 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 Laboratory Results Past 24 Hours 09/23/16 15:57 09/24/16 05:20 Red Blood Count 2.72, Mean Corpuscular Volume 91.2 #, Mean Corpuscular Hemoglobin 30.5, Mean Corpuscular Hemoglobin Concent 33.5, Mean Platelet Volume 9.5, Neutrophils (%) (Auto) 90.5, Lymphocytes (%) (Auto) 5.7, Monocytes (%) ( Auto) 3.0, Eosinophils (%) (Auto) 0.0, Basophils (%) (Auto) 0.1, Neutrophils # ( Auto) 16.12, Lymphocytes # (Auto) 1.01, Monocytes # (Auto) 0.54, Eosinophils # ( Auto) 0.00, Basophils # (Auto) 0.01 09/24/16 05:20 Test 09/23/16 14:32 09/23/16 15:57 09/23/16 17:45 09/23/16 18:54 Creatine Kinase MB Ratio (0-3.0) Erythrocyte Sedimentation Rate 19 mm/hr (0-21) Creatine Kinase MB 1.8 ng/ml (0.5-3.6) Troponin I 0.190 ng/ml (0-0.045) C-Reactive Protein 9.21 mg/dl (0-0.29) Pro-B-Type Natriuretic Peptide 24363 pg/ml (0-1800) Urine Color YELLOW Urine Appearance CLEAR (CLEAR) Urine pH 5.0 (4.5-7.5) Urine Specific [place] 1.007 (1.000-1.030) Urine Protein NEG (NEG) Urine Glucose (UA) TRACE (NEG) Urine Ketones NEG (NEG) Urine Occult Blood TRACE (NEG) Urine Nitrite NEG (NEG) Urine Bilirubin NEG (NEG) Urine Urobilinogen NEG (NEG) Urine Leukocyte Esterase TRACE (NEG) Urine WBC (Auto) 1-5 /hpf (0-5) Urine RBC (Auto) 0-4 /hpf (0-4) Urine Hyaline Casts (Auto) 1-5 /lpf (0-5) Urine Epithelial Cells (Auto) >30 /lpf (0-5) Urine Bacteria (Auto) NEG (NEG) Urine Random Creatinine 56.0 mg/dl Urine Random Total Protein 25.5 mg/dl (0-11.9) Urine Protein/Creatinine Ratio 0.5 (0-0.2) Test 09/24/16 05:20 White Blood Count 17.80 K/uL (4.8-10.8) Red Blood Count 2.72 M/uL (4.2-5.4) Hemoglobin 8.3 g/dL (12.0-16.0) Hematocrit 24.8 % (37-47) Mean Corpuscular Volume 91.2 fL (80-100) Mean Corpuscular Hemoglobin 30.5 pg (25-34) Mean Corpuscular Hemoglobin Concent 33.5 g/dl (32-36) Platelet Count 167 K/uL (130-400) Mean Platelet Volume 9.5 fL (7.4-10.4) Neutrophils (%) (Auto) 90.5 % Lymphocytes (%) (Auto) 5.7 % Monocytes (%) (Auto) 3.0 % Eosinophils (%) (Auto) 0.0 % Basophils (%) (Auto) 0.1 % Neutrophils # (Auto) 16.12 K/uL (1.4-6.5) Lymphocytes # (Auto) 1.01 K/uL (1.2-3.4) Monocytes # (Auto) 0.54 K/uL (0.11-0.59) Eosinophils # (Auto) 0.00 K/uL (0-0.5) Basophils # (Auto) 0.01 K/uL (0-0.2) RDW Standard Deviation 54.0 fL (36.4-46.3) RDW Coefficient of Variation 17.3 % (11.5-14.5) Immature Granulocyte % (Auto) 0.7 % Immature Granulocyte # (Auto) 0.12 K/uL (0.00-0.02) Polychromasia 1+ Prothrombin Time 10.5 SECONDS (9.0-12.0) Prothromb Time International Ratio 1.0 (0.9-1.1) Activated Partial Thromboplast Time 25.8 SECONDS (21.0-31.0) Partial Thromboplastin Ratio 1.0 Anion Gap 13.0 mmol/L (3-11) Est Creatinine Clear Calc Drug Dose 16.0 ml/min Estimated GFR () 23.8 Estimated GFR (Non- 20.5 BUN/Creatinine Ratio 24.1 (10-20) Calcium Level 7.9 mg/dl (8.5-10.1) Total Bilirubin 1.3 mg/dl (0.2-1) Direct Bilirubin 0.5 mg/dl (0-0.2) Aspartate Amino Transf (AST/SGOT) 26 U/L (15-37) Alanine Aminotransferase (ALT/SGPT) 48 U/L (12-78) Alkaline Phosphatase 84 U/L (45-117) Total Protein 6.3 gm/dl (6.4-8.2) Albumin 3.0 gm/dl (3.4-5.0) Thyroid Stimulating Hormone (TSH) 0.313 uIu/ml (0.300-4.500) Allergies Coded Allergies: Doxycycline (Verified Allergy, Severe, RASH, 09/22/16) Trimethoprim (Verified Allergy, Severe, RASH, 09/22/16) Adhesives (Verified Allergy, Unknown, HAD RXN TO HOLTER MONITOR PATCHES, ) Carbamazepine (Verified Allergy, Unknown, 09/22/16) Hydantoins (Verified Allergy, Unknown, 09/22/16) Penicillins (Verified Allergy, Unknown, AMOXIL, 09/22/16) Phenytoin (Verified Allergy, Unknown, 09/22/16) Medications Current Inpatient Medications Medications (Trade) Dose Ordered Sig/Phillip Route Start Time Stop Time Status Last Admin Dose Admin Acetaminophen (Tylenol Tab) 650 mg Q4H PRN PO 09/22/16 19:15 10/22/16 19:14 Zolpidem Tartrate (Ambien Tab) 5 mg HSZ PRN PO 09/22/16 19:15 10/22/16 19:14 Diltiazem HCl (TIAzac CAP) 120 mg BID PO 09/22/16 21:00 10/22/16 20:59 09/24/16 07:37 120 MG Levothyroxine Sodium (Synthroid Tab) 75 mcg DAILYBB PO 09/23/16 06:00 10/23/16 06:59 09/24/16 06:21 75 MCG Ondansetron HCl 4 mg 4 mg Q6H PRN IV 09/22/16 19:15 10/22/16 19:14 Pantoprazole Sodium/Syringe (Protonix Inj/ Syringe) 10 ml @ 5 mls/min DAILY@09,21 IV 09/22/16 21:00 10/22/16 20:59 09/24/16 07:38 5 MLS/MIN Albuterol/ Ipratropium 3 ml 3 ml QIDR INH 09/23/16 12:00 10/23/16 11:59 09/24/16 07:03 3 ML Cefepime HCl/ Dextrose (Maxipime IV/D5 100ml) 112.5 ml @ 200 mls/hr BID@0200,1400 IV 09/23/16 14:00 09/30/16 13:59 09/24/16 02:32 200 MLS/HR Azithromycin (Zithromax Tab) 500 mg QAM PO 09/23/16 14:00 09/30/16 13:59 09/24/16 07:38 500 MG Codeine Phosphate/ Guaifenesin (Robitussin-AC Sugar Free Syrup) 10 ml Q6H PRN PO 09/23/16 16:00 10/23/16 15:59 09/23/16 16:27 10 ML Sodium Bicarbonate (Sodium Bicarbonate Tab) 650 mg BID PO 09/23/16 21:00 10/23/16 20:59 09/24/16 07:37 650 MG Impression (1) ANA PAULA (acute kidney injury) (2) Metabolic acidosis (3) Hemoptysis (4) Anemia (5) Aortic Valve Disorder (6) Chronic Kidney Disease, Unspecified (7) Hypertension Nos Anusha is a 86-year-old female with the acute kidney injury, prior history of dialysis requiring acute kidney injury with recovery, chronic kidney disease, prior history of nephrotic syndrome, history of seizure disorder, severe aortic stenosis and history of pulmonary embolism before. 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 She has been on high-flow nasal cannula oxygen but her oxygen saturations stain and 89-90 percent and she continues to have significant respiratory distress. She was seen by Pulmonary and started on high dose steroid. Has baseline stage 3 chronic kidney disease creating 1.2-1.4, prior history of nephrotic syndrome and dialysis requiring acute kidney injury in 2007 with significant recovery. Prior urinalysis was unremarkable, urine amylase is 2 days pending. On admission yesterday creatinine was 2.1 which is slightly improved to 1.9 this morning. Has non gap metabolic acidosis and bicarbonate staying an 19-20. She has been non oliguria. Possibility for pulmonary congestion from severe aortic stenosis causing hemoptysis is possible. No recent 2D echo available in the record. 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 Recommendations --continue on pulse dose steroids and then decrease to 60 mg daily. U/A negative , unlikely renal vasculitis.continues to have occasional hemoptysis but Hb stable. --monitor intake and output. --patient clearly expressed that she does not want aggressive interventions, does not want resuscitation or plasmapheresis or even transfer to another facility. --check H&H every 12 hours -- monitor renal panel daily --continue on oral sodium bicarb 650 milligram twice a day --discussed in detail with the patient's son Travis over telephone and answered questions ) Will follow
[2016-09-24] MEDS ORDERED: METHYLPREDNISOLONE IV 500 MG in SYRINGE 0 ML IV SCH (10:45)
[2016-09-24] MEDS ORDERED: NURSING VERBAL MED ORDER ONE (11:45)
[2016-09-24] MEDS ORDERED: ALPRAZOLAM 0.5 MG TAB PO SCH (11:50)
[2016-09-24] MEDS: METHYLPREDNISOLONE IV 500 MG in DEXTROSE 5% 250ML 250 ML IV SCH (12:21)
--- NOTE | 2016-09-24 13:24 | Progress Note ---
Subjective Date of Service: Sep 24, 2016. Subjective Pt evaluation today including: conversation w/ patient, conversation w/ family , chart review, lab review, review of studies, conversation w/ beauty consultant, review of inpatient medication list Voiding: sweet catheter in place Look anxious, which is new today, continue cough up blood , but awake and alert and orientated, eating drinking, continue on high flow oxygen, denied chest pain Problem List Medical Problems: (1) Acute renal failure Status: Acute (2) Anemia Status: Acute Review of Systems Constitutional: + fatigue, + weakness, No chills, No fever, No problem reported , No sweats, No weight loss Eyes: No diplopia, No discharge, No eye pain, No redness, No worsening of vision ENT: No dental problems, No hearing loss, No nasal symptoms, No sore throat, No tinnitus, No trouble swallowing, No unusual epistaxis Respiratory: + shortness of breath, No cough, No dyspnea at rest, No dyspnea on exertion, No hemoptysis, No sputum, No wheezing Cardiac: + problem reported, No PND, No chest pain, No claudication, No edema, No orthopnea, No palpitations Abdomen: No constipation, No diarrhea, No nausea, No pain, No vomiting Musculoskeletal: No calf pain, No joint pain, No muscle pain, No swelling Female : No abnormal vaginal bleeding, No dysuria, No hematuria, No incontinence, No urinary frequency, No vaginal discharge Neurologic: No balance problems, No memory loss, No numbness/tingling, No paralysis, No vertigo, No weakness Psychiatric: No anhedonism, No anxiety, No depression symptoms, No insomnia, No substance abuse Heme: No abnormal bleeding/bruising, No clotting problems, No night sweats, No swollen lymph nodes Endo: No excessive thirst, No excessive urination, No fatigue Skin: No bleeding, No color change, No itch, No new/changing skin lesions, No rash Objective Vital Signs Date Time Temp Pulse Resp B/P Pulse Ox O2 Delivery O2 Flow Rate FiO2 09/24/16 12:59 93 Room Air 40.0 50 09/24/16 11:59 36.8 68 24 126/50 97 High Flow Oxygen 40 09/24/16 11:05 65 22 98 Nasal Cannula 40.0 70 09/24/16 08:39 36.5 70 16 119/65 93 High Flow Oxygen 40.0 50 09/24/16 08:35 93 High Flow Oxygen 40.0 50 09/24/16 07:51 36.8 63 22 119/65 96 High Flow Oxygen 40 09/24/16 07:03 98 22 98 Nasal Cannula 40.0 65 09/24/16 04:23 36.7 69 18 111/44 98 High Flow Oxygen 09/24/16 04:00 98 High Flow Oxygen 40.0 50 09/24/16 00:03 36.6 80 16 116/61 98 High Flow Oxygen 09/23/16 23:59 98 High Flow Oxygen 40.0 50 09/23/16 20:00 92 High Flow Oxygen 40.0 50 09/23/16 19:27 84 24 94 Nasal Cannula 40.0 55 09/23/16 19:23 36.7 76 24 122/62 95 High Flow Oxygen 40.0 50 09/23/16 16:28 118/62 09/23/16 16:00 92 High Flow Oxygen 40.0 50 09/23/16 15:17 79 30 92 Nasal Cannula 50 09/23/16 14:46 36.7 71 24 109/54 95 40.0 09/23/16 14:00 36.6 68 28 95/48 91 6.0 Physical Exam General Appearance: WD/WN, no apparent distress, + thin, + pertinent finding ( anxious) Eyes: normal inspection, PERRL, EOMI, sclerae normal ENT: normal ENT inspection, hearing grossly normal, pharynx normal, + pertinent finding (on high flow oxygen) Neck: supple, no adenopathy, thyroid normal, no JVD, no carotid bruits, trachea midline Respiratory/Chest: normal breath sounds, no respiratory distress, no accessory muscle use, + decreased breath sounds, + crackles (in the base), + wheezing Cardiovascular: regular rate, rhythm, no edema, no gallop, no JVD, no murmur Abdomen: normal bowel sounds, non tender, soft, no organomegaly, no pulsatile mass, + pertinent finding (Sweet in place) Extremities: normal range of motion, non-tender, normal inspection, no pedal edema, no calf tenderness, normal capillary refill, pelvis stable Neurologic/Psychiatric: rigging man II-XII nml as tested, no motor/sensory deficits, alert, normal mood/affect, oriented x 3 Skin: normal color, warm/dry, no rash Lymphatic: no adenopathy Laboratory Results Last 24 Hours Test 09/23/16 14:32 09/23/16 15:57 09/23/16 17:45 09/23/16 18:54 Creatine Kinase MB Ratio Hemoglobin 8.4 g/dL Hematocrit 25.0 % Erythrocyte Sedimentation Rate 19 mm/hr Creatine Kinase MB 1.8 ng/ml Troponin I 0.190 ng/ml C-Reactive Protein 9.21 mg/dl Pro-B-Type Natriuretic Peptide 44793 pg/ml Urine Color YELLOW Urine Appearance CLEAR Urine pH 5.0 Urine Specific [place] 1.007 Urine Protein NEG Urine Glucose (UA) TRACE Urine Ketones NEG Urine Occult Blood TRACE Urine Nitrite NEG Urine Bilirubin NEG Urine Urobilinogen NEG Urine Leukocyte Esterase TRACE Urine WBC (Auto) 1-5 /hpf Urine RBC (Auto) 0-4 /hpf Urine Hyaline Casts (Auto) 1-5 /lpf Urine Epithelial Cells (Auto) >30 /lpf Urine Bacteria (Auto) NEG Urine Random Creatinine 56.0 mg/dl Urine Random Total Protein 25.5 mg/dl Urine Protein/Creatinine Ratio 0.5 Test 09/24/16 05:20 White Blood Count 17.80 K/uL Red Blood Count 2.72 M/uL Hemoglobin 8.3 g/dL Hematocrit 24.8 % Mean Corpuscular Volume 91.2 fL Mean Corpuscular Hemoglobin 30.5 pg Mean Corpuscular Hemoglobin Concent 33.5 g/dl Platelet Count 167 K/uL Mean Platelet Volume 9.5 fL Neutrophils (%) (Auto) 90.5 % Lymphocytes (%) (Auto) 5.7 % Monocytes (%) (Auto) 3.0 % Eosinophils (%) (Auto) 0.0 % Basophils (%) (Auto) 0.1 % Neutrophils # (Auto) 16.12 K/uL Lymphocytes # (Auto) 1.01 K/uL Monocytes # (Auto) 0.54 K/uL Eosinophils # (Auto) 0.00 K/uL Basophils # (Auto) 0.01 K/uL RDW Standard Deviation 54.0 fL RDW Coefficient of Variation 17.3 % Immature Granulocyte % (Auto) 0.7 % Immature Granulocyte # (Auto) 0.12 K/uL Polychromasia 1+ Prothrombin Time 10.5 SECONDS Prothromb Time International Ratio 1.0 Activated Partial Thromboplast Time 25.8 SECONDS Partial Thromboplastin Ratio 1.0 Sodium Level 141 mmol/L Potassium Level 3.6 mmol/L Chloride Level 109 mmol/L Carbon Dioxide Level 19 mmol/L Anion Gap 13.0 mmol/L Blood Urea Nitrogen 51 mg/dl Creatinine 2.10 mg/dl Est Creatinine Clear Calc Drug Dose 16.0 ml/min Estimated GFR () 23.8 Estimated GFR (Non- 20.5 BUN/Creatinine Ratio 24.1 Random Glucose 188 mg/dl Calcium Level 7.9 mg/dl Total Bilirubin 1.3 mg/dl Direct Bilirubin 0.5 mg/dl Aspartate Amino Transf (AST/SGOT) 26 U/L Alanine Aminotransferase (ALT/SGPT) 48 U/L Alkaline Phosphatase 84 U/L Total Protein 6.3 gm/dl Albumin 3.0 gm/dl Thyroid Stimulating Hormone (TSH) 0.313 uIu/ml Assessment and Plan 86-year-old white female admitted on 09/22/2016 because of Extensive hemoptysis/ acute respiratory failure with hypoxia and acute on chronic kidney failure Extensive hemoptysis/acute respiratory failure with hypoxia upon admission: Continue cough up fresh blood, Remains unstable, continue oxygen, neb tx Pulmonary on the case, hemoptysis etiology unknown, infectious/ inflammatory/ vascular disease , at antibiotics IV, high flow oxygen, patient is not for further invasive procedure such as broncoscope Acute on chronic kidney failure stage III, history of acute interstitial nephritis, today's getting worse cr, 2.1, etiology unknown, renal/ prerenal or intrinsic, nephrology on the case Acute on chronic anemia possible from blood loss from hemoptysis, Improved after 2 unit blood transfusion is going on, hx of Seizures, Pulmonary embolism not on anticoag b/c bleeding, hx of TIA: Stable and watch HTN Hypothyroism Hyperchol : Continue current medication, but hold her blood pressure medicine because as BP is low, and she required to IV fluid bolus last night History of bilat hip arthroplasty hx of CAD/Atrial fibrillation/aortic valve stenosis/CHF history/hypertension: Stable Cardizem 120 mg by mouth twice a day, and continue lisinopril 20 mg by mouth every 12 hours hold with parameter Discussed with formal wear rental clerk and nephrology about care plan, continue on pulse dose steroids and then decrease to 60 mg daily. U/A negative, unlikely renal vasculitis.continues to have occasional hemoptysis but Hb stable, patient not able to tolerate bronchoscopy , we'll continue monitor intake and output, patient clearly expressed that she does not want aggressive interventions, does not want resuscitation or plasmapheresis or even transfer to another facility, I talked to patient's another son his name is Godwin [phone] over the phone from [employer] about patient's critical condition and possible poor prognosis, answered all the questions. GI prophylaxis is covered DVT prophylaxis SCD, no heparin because of contraindicated with the hemoptysis Poor prognosis because of age, multiple severe medical conditions and comorbidity Continued [facility] stay due to: abnormal vital signs, multiple IV medications needed Discharge planning: uncertain
--- NOTE | 2016-09-24 13:50 | Medical Student: [facility] ---
Med Student Progress Note Date of Service Sep 24, 2016. Subjective Pt evaluation today including: conversation w/ patient Voiding: sweet catheter in place Mrs. Rivera is a 86 year old female with past medical history significant for afib, aortic stenosis, CKD stage III, CHF, HTN, and history of nephrotic syndrome who presented to ED yesterday for shortness of breath and 2 episodes of hemoptysis being treated for hypoxia and anemia. Per RN no acute events overnight. Per tele no events overnight, normal sinus rhythm. Patient states she is okay. She notes shortness of breath is improved with the high flow oxygen. Reports productive coughing this AM with streaks of bright red blood. States appetite is good, though did have some nausea after breakfast. Reports she did not sleep well overnight due to oxygen machine noise. Denies fever, chills, chest pain, palpitations, vomiting, abdominal pain, hematuria, blood in stool. Review of Systems Constitutional: + fatigue, No chills, No fever Respiratory: + cough, + hemoptysis, + sputum, No dyspnea at rest, No shortness of breath, No wheezing Cardiac: No chest pain, No edema, No orthopnea, No palpitations Abdomen: + nausea, No GI bleeding, No diarrhea, No pain, No vomiting Musculoskeletal: No calf pain, No swelling Female : + dysuria, No hematuria Psychiatric: + anxiety Heme: No abnormal bleeding/bruising Objective Vital Signs Date Time Temp Pulse Resp B/P Pulse Ox O2 Delivery O2 Flow Rate FiO2 09/24/16 12:59 93 Room Air 40.0 50 09/24/16 11:59 36.8 68 24 126/50 97 High Flow Oxygen 40 09/24/16 11:05 65 22 98 Nasal Cannula 40.0 70 09/24/16 08:39 36.5 70 16 119/65 93 High Flow Oxygen 40.0 50 09/24/16 08:35 93 High Flow Oxygen 40.0 50 09/24/16 07:51 36.8 63 22 119/65 96 High Flow Oxygen 40 09/24/16 07:03 98 22 98 Nasal Cannula 40.0 65 09/24/16 04:23 36.7 69 18 111/44 98 High Flow Oxygen 09/24/16 04:00 98 High Flow Oxygen 40.0 50 09/24/16 00:03 36.6 80 16 116/61 98 High Flow Oxygen 09/23/16 23:59 98 High Flow Oxygen 40.0 50 09/23/16 20:00 92 High Flow Oxygen 40.0 50 09/23/16 19:27 84 24 94 Nasal Cannula 40.0 55 09/23/16 19:23 36.7 76 24 122/62 95 High Flow Oxygen 40.0 50 09/23/16 16:28 118/62 09/23/16 16:00 92 High Flow Oxygen 40.0 50 09/23/16 15:17 79 30 92 Nasal Cannula 50 09/23/16 14:46 36.7 71 24 109/54 95 40.0 09/23/16 14:00 36.6 68 28 95/48 91 6.0 09/23/16 13:09 36.5 66 32 106/46 93 6.0 Physical Exam General Appearance: WD/WN, + mild distress, + thin Neck: supple, no adenopathy, no JVD, no carotid bruits Respiratory/Chest: chest non-tender, lungs clear, no respiratory distress, no accessory muscle use, + decreased breath sounds (bibasilar) Cardiovascular: regular rate, rhythm, no edema, no JVD, + systolic murmur Abdomen: normal bowel sounds, non tender, soft Extremities: non-tender, normal inspection, no pedal edema, no calf tenderness Neurologic/Psychiatric: alert, normal mood/affect, oriented x 3 Skin: normal color, warm/dry, no rash Comments: Moist mucous membranes Laboratory Results Last 24 Hours Test 09/23/16 14:32 09/23/16 15:57 09/23/16 17:45 09/23/16 18:54 Creatine Kinase MB Ratio Hemoglobin 8.4 g/dL Hematocrit 25.0 % Erythrocyte Sedimentation Rate 19 mm/hr Creatine Kinase MB 1.8 ng/ml Troponin I 0.190 ng/ml C-Reactive Protein 9.21 mg/dl Pro-B-Type Natriuretic Peptide 92187 pg/ml Urine Color YELLOW Urine Appearance CLEAR Urine pH 5.0 Urine Specific [place] 1.007 Urine Protein NEG Urine Glucose (UA) TRACE Urine Ketones NEG Urine Occult Blood TRACE Urine Nitrite NEG Urine Bilirubin NEG Urine Urobilinogen NEG Urine Leukocyte Esterase TRACE Urine WBC (Auto) 1-5 /hpf Urine RBC (Auto) 0-4 /hpf Urine Hyaline Casts (Auto) 1-5 /lpf Urine Epithelial Cells (Auto) >30 /lpf Urine Bacteria (Auto) NEG Urine Random Creatinine 56.0 mg/dl Urine Random Total Protein 25.5 mg/dl Urine Protein/Creatinine Ratio 0.5 Test 09/24/16 05:20 White Blood Count 17.80 K/uL Red Blood Count 2.72 M/uL Hemoglobin 8.3 g/dL Hematocrit 24.8 % Mean Corpuscular Volume 91.2 fL Mean Corpuscular Hemoglobin 30.5 pg Mean Corpuscular Hemoglobin Concent 33.5 g/dl Platelet Count 167 K/uL Mean Platelet Volume 9.5 fL Neutrophils (%) (Auto) 90.5 % Lymphocytes (%) (Auto) 5.7 % Monocytes (%) (Auto) 3.0 % Eosinophils (%) (Auto) 0.0 % Basophils (%) (Auto) 0.1 % Neutrophils # (Auto) 16.12 K/uL Lymphocytes # (Auto) 1.01 K/uL Monocytes # (Auto) 0.54 K/uL Eosinophils # (Auto) 0.00 K/uL Basophils # (Auto) 0.01 K/uL RDW Standard Deviation 54.0 fL RDW Coefficient of Variation 17.3 % Immature Granulocyte % (Auto) 0.7 % Immature Granulocyte # (Auto) 0.12 K/uL Polychromasia 1+ Prothrombin Time 10.5 SECONDS Prothromb Time International Ratio 1.0 Activated Partial Thromboplast Time 25.8 SECONDS Partial Thromboplastin Ratio 1.0 Sodium Level 141 mmol/L Potassium Level 3.6 mmol/L Chloride Level 109 mmol/L Carbon Dioxide Level 19 mmol/L Anion Gap 13.0 mmol/L Blood Urea Nitrogen 51 mg/dl Creatinine 2.10 mg/dl Est Creatinine Clear Calc Drug Dose 16.0 ml/min Estimated GFR () 23.8 Estimated GFR (Non- 20.5 BUN/Creatinine Ratio 24.1 Random Glucose 188 mg/dl Calcium Level 7.9 mg/dl Total Bilirubin 1.3 mg/dl Direct Bilirubin 0.5 mg/dl Aspartate Amino Transf (AST/SGOT) 26 U/L Alanine Aminotransferase (ALT/SGPT) 48 U/L Alkaline Phosphatase 84 U/L Total Protein 6.3 gm/dl Albumin 3.0 gm/dl Thyroid Stimulating Hormone (TSH) 0.313 uIu/ml Medications Current Inpatient Medications Medications (Trade) Dose Ordered Sig/Phillip Route Start Time Stop Time Status Last Admin Dose Admin Acetaminophen (Tylenol Tab) 650 mg Q4H PRN PO 09/22/16 19:15 10/22/16 19:14 Zolpidem Tartrate (Ambien Tab) 5 mg HSZ PRN PO 09/22/16 19:15 10/22/16 19:14 Diltiazem HCl (TIAzac CAP) 120 mg BID PO 09/22/16 21:00 10/22/16 20:59 09/24/16 07:37 120 MG Levothyroxine Sodium (Synthroid Tab) 75 mcg DAILYBB PO 09/23/16 06:00 10/23/16 06:59 09/24/16 06:21 75 MCG Ondansetron HCl 4 mg 4 mg Q6H PRN IV 09/22/16 19:15 10/22/16 19:14 Pantoprazole Sodium/Syringe (Protonix Inj/ Syringe) 10 ml @ 5 mls/min DAILY@09,21 IV 09/22/16 21:00 10/22/16 20:59 09/24/16 07:38 5 MLS/MIN Albuterol/ Ipratropium 3 ml 3 ml QIDR INH 09/23/16 12:00 10/23/16 11:59 09/24/16 11:08 3 ML Cefepime HCl/ Dextrose (Maxipime IV/D5 100ml) 112.5 ml @ 200 mls/hr BID@0200,1400 IV 09/23/16 14:00 09/30/16 13:59 09/24/16 02:32 200 MLS/HR Azithromycin (Zithromax Tab) 500 mg QAM PO 09/23/16 14:00 09/30/16 13:59 09/24/16 07:38 500 MG Codeine Phosphate/ Guaifenesin (Robitussin-AC Sugar Free Syrup) 10 ml Q6H PRN PO 09/23/16 16:00 10/23/16 15:59 09/23/16 16:27 10 ML Sodium Bicarbonate 650 mg 650 mg BID PO 09/23/16 21:00 10/23/16 20:59 09/24/16 07:37 650 MG Methylprednisolone Sodium Succinate/ Dextrose (Solu-Medrol IV/ D5 250ml) 258 ml @ 266 mls/hr DAILY IV 09/24/16 11:00 09/25/16 09:59 09/24/16 12:21 266 MLS/HR Alprazolam (Xanax Tab) 0.5 mg Q8H PRN PO 09/24/16 19:00 10/24/16 18:59 Assessment and Plan Assessment and Plan: Mrs. Rivera is a 86 year old female with past medical history significant for afib, aortic stenosis, CKD, CHF, HTN, and history of nephrotic syndrome being treated for hypoxia and anemia. 1. Acute respiratory failure. Likely due to pulmonary hemorrhage due to PNA vs. CHF due to severe aortic stenosis vs. vasculitis or combination. History of PE due to nephrotic syndrome. UA did not reveal proteinuria making PE due to nephrotic syndrome less likely. Would not consider CTA due to kidney function. Upper extremity Doppler and lower extremity Doppler did not reveal deep thromboses. In addition diagnosis would not change house attendant at this point due to hemorrhage. Oxygen saturation on high flow O2 98%. Not stable at this point for bronchoscopy to evaluate hemorrhage. - Continue high flow O2 40 LPM - Continue methylprednisolone sodium succinate IV - Continue DuoNeb. - Continue to monitor oxygen saturation, aim above 92% 2. Pneumonia- Likely community acquired. Possible cause for acute respiratory failure and bilateral opacities on CXR. Could explain cough, hemoptysis. WBC has increased from 10.69 to 17.8 though likely due to demargination due to steroid. - Continue azithromycin and cefepime antibiotics - Obtain sputum culture 3. Acute on Chronic CHF- Likely due to severe aortic stenosis and chronic hypertension. Pleural effusion on CXR could indicate acute exacerbation of CHF. BNP was [address]. Patient does not seem fluid overloaded due patient being hypotensive, nonedematous, and without JVD. Aortic valve on last echo was 0.7 cm2. Not candidate for valve replacement at this time. Patient diuresed with Lasix 40 mg then 20 mg yesterday. - Continue to monitor BMP, renal profile - Monitor I/O, daily weights - Hold lisinopril due to ANA PAULA 4. Normocytic, normochromic anemia- Likely due to acute blood loss and/or chronic renal disease. Less likely iron deficiency. Patient received two units of blood yesterday. Hemoglobin increased to 8.3 from 6.1. Hematocrit increased from 18.4 to 24.8. - Could consider iron studies - Continue to monitor hemoglobin and hematocrit q 12 hours - Consider transfusion if hemoglobin <7 5. Acute on chronic renal insufficiency- CKD stage III - BUN increased to 51 from 36. Creatinine increased to 2.1 from 1.9. Baseline creatinine BUN/ creatinine ratio is 24.1, indicative of prerenal azotemia. Likely due to CHF, hypovolemia, hypotension. UA revealed trace occult blood and no proteinuria making nephrotic syndrome less likely. Blood could indicate nephritic process. Could consider [place] syndrome, Judi granulomatosis, microscopic polyangiitis which would affect kidney and lungs. However less likely with ESR of 19. ANCA antibodies pending. - Continue methylprednisolone sodium succinate IV - Continue sodium bicarb 650 mg BID for acidosis - Monitor I/O - Monitor BMP, renal profile - Renally dose medications - Avoid nephrotoxic drugs 6. Anxiety- Patient notes anxiety and is noticeably anxious when speaking with her. - Begin Alprazolam 0.5 mg q8 PRN. 7. Chronic afib - Per tele patient in NSR. Some PACs. Likely due infection, electrolyte imbalance, anxiety. [id number] vasc score is 7, 11.2% ischemic stroke risk. HAS-BLED score is 3 with 5.8% bleeding risk. - Continue to monitor with telemetry - Continue diltiazem - Would not consider anticoagulation due to hemorrhage 8. Chronic HTN - Hypotensive due to hypovolemia, CHF. - Continue to monitor blood pressures 9. Hypothyroidism - TSH was 0.313. Within normal limits. - Continue Synthroid 75 mcg daily 10. DVT/GI prophylaxis - Continue IV pantoprazole - TEDs, SCDs - No anticoagulation due to hemorrhage Continued [facility] stay due to: abnormal vital signs, multiple IV medications needed Discharge planning: uncertain
--- NOTE | 2016-09-24 17:31 | ECHOCARDIOGRAM REPORT ---
*NOTICE TO RECEIVING [employer]PUBL[employer] AGENCY This information is strictly Confidential and protected under [place] law. [place] law prohibits you from making any further disclosure of this information unless further disclosure is expressly permitted by the written consent of the person to whom it pertains or is authorized by law. A general authorization for the release of medical or other information is not sufficient for this purpose. Hospital accepts no responsibility if the information is made available to any other person, INCLUDING THE PATIENT. Interpretation Summary * Name: KEMI SULTANA Study Date: 09/24/2016 03:39 PM BP: 119/65 mmHg * Patient Location: C.2E\S\E201\S\1 HR: 70 * : 1930 (M/d/yyyy) Gender: Female Height: 64 in * Age: 86 yrs Ethnicity: CA Weight: 122 lb * Ordering Physician: Ta Reed * Performed By: Yolie Johnston RDCS * * Reason For Study: Aortic stenosis * BSA: 1.6 m2 * -- Conclusions -- * Left ventricular systolic function is normal. * The left atrium is mildly dilated. * There is moderate mitral regurgitation. * There is mild mitral stenosis. * There is severe calcific aortic valve stenosis. Procedure Details * A complete two-dimensional transthoracic echocardiogram was performed (2D, M-mode, Doppler and color flow Doppler). Left Ventricle * The left ventricle is normal in size. * There is normal left ventricular wall thickness. * Ejection Fraction = 55-60%. * Left ventricular systolic function is normal. Right Ventricle * The right ventricle is normal in size and function. Atria * The left atrium is mildly dilated. * Right atrial size is normal. Mitral Valve * The mitral valve anatomy is normal. * There is mild mitral annular calcification. * There is mild mitral stenosis. * There is moderate mitral regurgitation. Aortic Valve * Heavily calcified * There is severe calcific aortic valve stenosis. * There is no significant aortic regurgitation. MMode 2D Measurements and Calculations IVSd 1.1 cm LVIDd 4.5 cm LVIDs 3.3 cm LVPWd 1.0 cm IVS/LVPW 1.1 FS 26.9 % EDV(Teich) 92.9 ml ESV(Teich) 44.0 ml EF(Teich) 52.7 % EDV(cubed) 91.7 ml ESV(cubed) 35.8 ml EF(cubed) 61.0 % LV mass(C)d 171.2 grams LV mass(C)dI 108.0 grams/m\S\2 SV(Teich) 48.9 ml SI(Teich) 30.9 ml/m\S\2 SV(cubed) 56.0 ml SI(cubed) 35.3 ml/m\S\2 Ao root diam 2.7 cm Ao root area 5.8 cm\S\2 ACS 0.83 cm LA dimension 4.1 cm asc Aorta Diam 2.6 cm LA/Ao 1.5 LVOT diam 2.0 cm LVOT area 3.1 cm\S\2 LVAd ap4 19.8 cm\S\2 LVLd ap4 7.0 cm EDV(MOD-sp4) 46.2 ml EDV(sp4-el) 47.4 ml LVAs ap4 12.5 cm\S\2 LVLs ap4 6.7 cm ESV(MOD-sp4) 20.3 ml ESV(sp4-el) 19.9 ml EF(MOD-sp4) 56.1 % EF(sp4-el) 58.1 % LVAd ap2 22.1 cm\S\2 LVLd ap2 7.7 cm EDV(MOD-sp2) 53.7 ml EDV(sp2-el) 53.9 ml LVAs ap2 13.2 cm\S\2 LVLs ap2 6.2 cm ESV(MOD-sp2) 24.3 ml ESV(sp2-el) 23.8 ml EF(MOD-sp2) 54.8 % EF(sp2-el) 55.8 % LVLd %diff 9.0 % EDV(MOD-bp) 52.5 ml LVLs %diff -8.21 % ESV(MOD-bp) 23.0 ml EF(MOD-bp) 56.1 % SV(MOD-sp4) 25.9 ml SI(MOD-sp4) 16.4 ml/m\S\2 SV(MOD-sp2) 29.4 ml SI(MOD-sp2) 18.5 ml/m\S\2 SV(MOD-bp) 29.4 ml SI(MOD-bp) 18.6 ml/m\S\2 SV(sp4-el) 27.6 ml SI(sp4-el) 17.4 ml/m\S\2 SV(sp2-el) 30.1 ml SI(sp2-el) 19.0 ml/m\S\2 Doppler Measurements and Calculations MV E max timmy 174.4 cm/sec MV A max timmy 89.4 cm/sec MV E/A 2.0 MV V2 max 188.1 cm/sec MV max PG 14.2 mmHg MV V2 mean 112.1 cm/sec MV mean PG 5.6 mmHg MV V2 VTI 46.2 cm MV dec time 0.21 sec Ao V2 max 436.3 cm/sec Ao max PG 76.1 mmHg Ao max PG (full) 71.9 mmHg Ao V2 mean 331.2 cm/sec Ao mean PG 50.4 mmHg Ao V2 VTI 106.1 cm MANAS(V,A) 0.73 cm\S\2 MANAS(V,D) 0.73 cm\S\2 LV V1 max PG 4.2 mmHg LV V1 max 102.8 cm/sec SV(Ao) 615.6 ml SI(Ao) 388.3 ml/m\S\2 PA V2 max 93.7 cm/sec PA max PG 3.5 mmHg PA acc slope 614.6 cm/sec\S\2 PA acc time 0.09 sec TR max timmy 266.7 cm/sec PA pr(Accel) 37.8 mmHg
[2016-09-24] MEDS: PANTOprazole SOD 40 MG TAB PO SCH (20:44)
[2016-09-25] VITALS (10 sets, daily range): BP systolic 104–138; BP diastolic 50–76; PULSE 63–85; TEMP 36.4–36.7; O2SAT 90–96
[2016-09-25] MEDS: CEFEPIME IV 2,000 MG in DEXTROSE 5% 100ML 100 ML IV SCH ×2 (02:23→14:00)
[2016-09-25 05:40] LABS: BASO % 0.1 %; BASO ABS # 0.01 K/uL (0-0.2); HEMATOCRIT 22.4 % (37-47); IG% 0.5 %; LYMPH % 4.2 %; LYMPH ABS # 0.63 K/uL (1.2-3.4); MEAN CELL VOLUME 92.9 fL (80-100); MEAN CORPUSCULAR HEMOGLOBIN 31.5 pg (25-34); MEAN CORPUSCULAR HGB CONC 33.9 g/dl (32-36); MEAN PLATELET VOLUME 9.4 fL (7.4-10.4); MONO % 3.8 %; NEUT % 91.4 %; PLATELET COUNT 169 K/uL (130-400); RED BLOOD COUNT 2.41 M/uL (4.2-5.4); WHITE BLOOD COUNT 14.89 K/uL (4.8-10.8)
[2016-09-25 05:50] LABS: PARTIAL THROMBOPLASTIN RATIO 0.9; PROTHROMBIN TIME (PATIENT) 10.7 SECONDS (9.0-12.0)
[2016-09-25 06:10] LABS: BUN/CREATININE RATIO 28.5 (10-20); CALCIUM 8.1 mg/dl (8.5-10.1); POTASSIUM 3.6 mmol/L (3.5-5.1)
[2016-09-25] MEDS: LEVOTHYROXINE 75 MCG TAB PO SCH (06:34)
[2016-09-25] MEDS: ALBUT/IPRATROP 3MG/0.5MG NEB 3 ML VIAL INH SCH ×4 (07:07→18:50)
[2016-09-25 07:11] LABS: COMPLETE YES; POLYCHROMASIA 1+
[2016-09-25] MEDS: METHYLPREDNISOLONE IV 500 MG in DEXTROSE 5% 250ML 250 ML IV SCH (07:31)
[2016-09-25] MEDS: ALPRAZOLAM 0.5 MG TAB PO PRN ×2 (07:31→15:29)
[2016-09-25] MEDS: SODIUM BICARBONATE 650 MG TAB PO SCH ×2 (07:32→20:21)
[2016-09-25] MEDS: DILTIAZEM HCL 120 MG EXT REL CAP PO SCH ×2 (07:32→20:21)
[2016-09-25] MEDS: PANTOprazole SOD 40 MG TAB PO SCH ×2 (07:33→20:21)
[2016-09-25] MEDS: AZITHROMYCIN 250 MG TAB PO SCH (07:34)
--- NOTE | 2016-09-25 10:52 | Medical Student: [facility] ---
Med Student Progress Note Date of Service Sep 25, 2016. Subjective Pt evaluation today including: conversation w/ patient Voiding: sweet catheter in place Mrs. Rivera is an 86 year old female with past medical history significant for afib, chronic kidney disease- stage III, CHF, HTN, history of nephrotic syndrome being treated for hypoxia and anemia. According to nurse, no acute events overnight. Normal sinus rhythm per tele. Patient states she is feeling more tired but less anxious today. She notes more shortness of breath while talking and with movement. Reports productive cough this AM with streaks of bright red blood. States good appetite and sleep. Notes some nausea after eating. Denies fever, chest pain, palpitations, vomiting, abdominal pain, hematuria, lightheadedness. Review of Systems Constitutional: + fatigue, No chills, No fever Respiratory: + cough, + dyspnea on exertion, + hemoptysis, + shortness of breath, + sputum, No dyspnea at rest, No wheezing Cardiac: No chest pain, No edema, No orthopnea, No palpitations Abdomen: + nausea, No GI bleeding, No diarrhea, No pain, No vomiting Musculoskeletal: No calf pain, No muscle pain Female : No dysuria, No hematuria Psychiatric: No anxiety Heme: No abnormal bleeding/bruising Skin: No rash Objective Vital Signs Date Time Temp Pulse Resp B/P Pulse Ox O2 Delivery O2 Flow Rate FiO2 09/25/16 08:00 High Flow Oxygen 40.0 50 09/25/16 07:08 78 20 96 Nasal Cannula 40.0 60 09/25/16 07:03 36.5 63 22 115/54 93 High Flow Oxygen 09/25/16 04:00 High Flow Oxygen 40.0 50 09/25/16 03:36 36.5 75 20 104/76 90 High Flow Oxygen 09/25/16 00:00 High Flow Oxygen 40.0 50 09/24/16 23:23 38.6 79 20 107/50 95 High Flow Oxygen 40.0 09/24/16 20:00 High Flow Oxygen 40.0 50 09/24/16 19:40 78 20 95 Nasal Cannula 40.0 55 09/24/16 19:33 36.7 72 25 121/47 96 High Flow Oxygen 09/24/16 16:52 36.5 81 16 114/65 94 High Flow Oxygen 40.0 50 09/24/16 16:00 High Flow Oxygen 40.0 50 09/24/16 15:34 74 16 98 Nasal Cannula 40.0 65 09/24/16 14:55 36.7 75 29 114/62 96 High Flow Oxygen 09/24/16 12:59 93 Room Air 40.0 50 09/24/16 11:59 36.8 68 24 126/50 97 High Flow Oxygen 40 09/24/16 11:05 65 22 98 Nasal Cannula 40.0 70 Physical Exam General Appearance: WD/WN, + mild distress, + thin Neck: supple, no adenopathy, no JVD, no carotid bruits Respiratory/Chest: chest non-tender, no accessory muscle use, + crackles ( bibasilar), + wheezing (diffuse bilaterally) Cardiovascular: regular rate, rhythm, no edema, no gallop, no JVD, + systolic murmur Abdomen: normal bowel sounds, non tender, soft, no organomegaly, + distended Extremities: no pedal edema, no calf tenderness Neurologic/Psychiatric: alert, normal mood/affect, oriented x 3 Skin: normal color, warm/dry, no rash Comments: Moist mucous membranes Laboratory Results Last 24 Hours Test 09/25/16 05:28 White Blood Count 14.89 K/uL Red Blood Count 2.41 M/uL Hemoglobin 7.6 g/dL Hematocrit 22.4 % Mean Corpuscular Volume 92.9 fL Mean Corpuscular Hemoglobin 31.5 pg Mean Corpuscular Hemoglobin Concent 33.9 g/dl Platelet Count 169 K/uL Mean Platelet Volume 9.4 fL Neutrophils (%) (Auto) 91.4 % Lymphocytes (%) (Auto) 4.2 % Monocytes (%) (Auto) 3.8 % Eosinophils (%) (Auto) 0.0 % Basophils (%) (Auto) 0.1 % Neutrophils # (Auto) 13.61 K/uL Lymphocytes # (Auto) 0.63 K/uL Monocytes # (Auto) 0.56 K/uL Eosinophils # (Auto) 0.00 K/uL Basophils # (Auto) 0.01 K/uL RDW Standard Deviation 57.6 fL RDW Coefficient of Variation 18.2 % Immature Granulocyte % (Auto) 0.5 % Immature Granulocyte # (Auto) 0.08 K/uL Polychromasia 1+ Prothrombin Time 10.7 SECONDS Prothromb Time International Ratio 1.0 Activated Partial Thromboplast Time 23.8 SECONDS Partial Thromboplastin Ratio 0.9 Sodium Level 142 mmol/L Potassium Level 3.6 mmol/L Chloride Level 110 mmol/L Carbon Dioxide Level 20 mmol/L Anion Gap 12.0 mmol/L Blood Urea Nitrogen 57 mg/dl Creatinine 2.00 mg/dl Est Creatinine Clear Calc Drug Dose 16.8 ml/min Estimated GFR () 25.2 Estimated GFR (Non- 21.7 BUN/Creatinine Ratio 28.5 Random Glucose 179 mg/dl Calcium Level 8.1 mg/dl Medications Current Inpatient Medications Medications (Trade) Dose Ordered Sig/Phillip Route Start Time Stop Time Status Last Admin Dose Admin Acetaminophen (Tylenol Tab) 650 mg Q4H PRN PO 09/22/16 19:15 10/22/16 19:14 Zolpidem Tartrate (Ambien Tab) 5 mg HSZ PRN PO 09/22/16 19:15 10/22/16 19:14 Diltiazem HCl (TIAzac CAP) 120 mg BID PO 09/22/16 21:00 10/22/16 20:59 09/25/16 07:32 120 MG Levothyroxine Sodium (Synthroid Tab) 75 mcg DAILYBB PO 09/23/16 06:00 10/23/16 06:59 09/25/16 06:34 75 MCG Ondansetron HCl (Zofran Inj) 4 mg Q6H PRN IV 09/22/16 19:15 10/22/16 19:14 Albuterol/ Ipratropium 3 ml 3 ml QIDR INH 09/23/16 12:00 10/23/16 11:59 09/25/16 07:07 3 ML Cefepime HCl/ Dextrose (Maxipime IV/D5 100ml) 112.5 ml @ 200 mls/hr BID@0200,1400 IV 09/23/16 14:00 09/30/16 13:59 09/25/16 02:23 200 MLS/HR Azithromycin (Zithromax Tab) 500 mg QAM PO 09/23/16 14:00 09/30/16 13:59 09/25/16 07:34 500 MG Codeine Phosphate/ Guaifenesin (Robitussin-AC Sugar Free Syrup) 10 ml Q6H PRN PO 09/23/16 16:00 10/23/16 15:59 09/23/16 16:27 10 ML Sodium Bicarbonate (Sodium Bicarbonate Tab) 650 mg BID PO 09/23/16 21:00 10/23/16 20:59 09/25/16 07:32 650 MG Alprazolam (Xanax Tab) 0.5 mg Q8H PRN PO 09/24/16 19:00 10/24/16 18:59 09/25/16 07:31 0.5 MG Pantoprazole Sodium (Protonix Tab) 40 mg BID PO 09/24/16 21:00 10/24/16 20:59 09/25/16 07:33 40 MG Assessment and Plan Assessment and Plan: Mrs. Rivera is a 86 year old female with past medical history significant for afib, aortic stenosis, CKD, CHF, HTN, and history of nephrotic syndrome being treated for hypoxia and anemia. 1. Acute respiratory failure. Likely due to pulmonary hemorrhage due to PNA vs. CHF due to severe aortic stenosis vs. vasculitis or combination. Oxygen saturation on high flow O2 96%. Not stable at this point for bronchoscopy to evaluate hemorrhage. - Continue high flow O2 40 LPM - Continue DuoNeb, Robitussin - Continue to monitor oxygen saturation, aim above 92% 2. Pneumonia- Likely community acquired. Possible cause for acute respiratory failure and bilateral opacities on CXR. Could explain cough, hemoptysis, shortness of breath. WBC has increased yesterday from 10.69 to 17.80 likely due to demargination due to steroid. Decreased to 14.89 today. Blood cultures show no growth to date. - Continue azithromycin and cefepime antibiotics - Obtain sputum culture 3. Acute on Chronic CHF- Likely due to severe aortic stenosis and chronic hypertension. Pleural effusion on CXR could indicate acute exacerbation of CHF. BNP was [address]. Patient is not nonedematous and without JVD. Lungs diffuse wheezing, bibasilar crackles. Aortic valve on last echo was 0.7 cm2. Not candidate for valve replacement at this time. Patient diuresed with Lasix 40 mg then 20 mg two days ago. - Continue to monitor BMP, renal profile - Monitor I/O, daily weights - Hold lisinopril due to ANA PAULA - Consider Lasix due to possible lung congestion on exam. Consider repeat CXR 4. Normocytic, normochromic anemia- Likely due to acute blood loss and/or chronic renal disease. Less likely iron deficiency. Patient received two units of blood two days ago. Hemoglobin decreased from 8.3 to 7.6. Hematocrit decreased from 24.8 to 22.4. - Could consider iron studies - Continue to monitor hemoglobin and hematocrit q 12 hours - Consider transfusion 1 or 2 units today 5. Acute on chronic renal insufficiency- CKD stage III - BUN increased to 57 from 51. Creatinine decreased from 2.1 to 2.0. Baseline creatinine is 1.2-1.4/ BUN/creatinine ratio is 28.5, indicative of prerenal azotemia. Likely due to CHF, hypovolemia, hypotension. UA revealed trace occult blood and no proteinuria making nephrotic syndrome less likely. Blood could indicate nephritic process. Could consider [place] syndrome, Judi granulomatosis , microscopic polyangiitis which would affect kidney and lungs. However less likely with ESR of 19. ANCA antibodies pending. - Taper methylprednisolone sodium succinate IV - Continue sodium bicarb 650 mg BID for acidosis - Monitor I/O - Monitor BMP, renal profile - Renally dose medications - Avoid nephrotoxic drugs 6. Anxiety- Patient notes and is visibly less anxious and agitated today. - Continue Alprazolam 0.5 mg q8 PRN. 7. Chronic afib - Per tele patient in [id number] vasc score is 7, 11.2% ischemic stroke risk. HAS-BLED score is 3 with 5.8% bleeding risk. - Continue to monitor with telemetry - Continue diltiazem - Would not consider anticoagulation due to hemorrhage 8. Chronic HTN - Blood pressure in 100s/70s versus 90s/40-60s past few days. - Continue to monitor blood pressures 9. Hypothyroidism - TSH was 0.313 one day ago. Within normal limits. - Continue Synthroid 75 mcg daily 10. DVT/GI prophylaxis - Continue IV pantoprazole - TEDs, SCDs - No anticoagulation due to hemorrhage Continued [facility] stay due to: abnormal vital signs, multiple IV medications needed Discharge planning: uncertain
--- NOTE | 2016-09-25 10:55 | Nephrology Progress Note ---
Nephrology Progress Note Date of Service Sep 25, 2016. Chief Complaint F/U for ANA PAULA with h/o CKD Ion Tavares Was seen and examined in her room this morning. She overall feels well, denies any significant shortness of breath but she continues to have some hemoptysis and her hemoglobin dropped to 7.6 this morning. renal function remained stable, creatinine 2.1, has decent urine output. Blood pressure has been stable. Review of Systems A complete review of systems was performed. Pertinent positives are noted above. All other systems are negative. Vital Signs Last 8 Hrs Date Time Temp Pulse Resp B/P Pulse Ox O2 Delivery O2 Flow Rate FiO2 09/25/16 07:08 78 20 96 Nasal Cannula 40.0 60 09/25/16 07:03 36.5 63 22 115/54 93 High Flow Oxygen 09/25/16 04:00 High Flow Oxygen 40.0 50 09/25/16 03:36 36.5 75 20 104/76 90 High Flow Oxygen I & O 24-Hour Column 09/25/16 08:00 Intake Total 1065 ml Output Total 1825 ml Balance -760 ml Last Recorded Weight Weight (Kilograms): 56.700 Physical Exam GENERAL: elderly female, AAA x 3, pleasant, in mild respiratory distress. NECK: Supple, no JVD. RESPIRATORY crackles B/L CARDIOVASCULAR: S1, S2 normal, rate rhythm regular. EXTREMITY: No lower extremity edema NEURO: speech fluent. PSYCHIATRY: Normal mood and judgment Family History Heart disease Social History Smokeless Tobacco Use: No Alcohol Use: none Drug Use: none Marital Status: 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 Laboratory Results Past 24 Hours 09/25/16 05:28 Red Blood Count 2.41, Mean Corpuscular Volume 92.9, Mean Corpuscular Hemoglobin 31.5, Mean Corpuscular Hemoglobin Concent 33.9, Mean Platelet Volume 9.4, Neutrophils (%) (Auto) 91.4, Lymphocytes (%) (Auto) 4.2, Monocytes (%) (Auto) 3.8, Eosinophils (%) (Auto) 0.0, Basophils (%) (Auto) 0.1, Neutrophils # (Auto) 13.61, Lymphocytes # (Auto) 0.63, Monocytes # (Auto) 0.56, Eosinophils # (Auto) 0.00, Basophils # (Auto) 0.01 09/25/16 05:28 Test 3/17/17 05:28 White Blood Count 14.89 K/uL (4.8-10.8) Red Blood Count 2.41 M/uL (4.2-5.4) Hemoglobin 7.6 g/dL (12.0-16.0) Hematocrit 22.4 % (37-47) Mean Corpuscular Volume 92.9 fL (80-100) Mean Corpuscular Hemoglobin 31.5 pg (25-34) Mean Corpuscular Hemoglobin Concent 33.9 g/dl (32-36) Platelet Count 169 K/uL (130-400) Mean Platelet Volume 9.4 fL (7.4-10.4) Neutrophils (%) (Auto) 91.4 % Lymphocytes (%) (Auto) 4.2 % Monocytes (%) (Auto) 3.8 % Eosinophils (%) (Auto) 0.0 % Basophils (%) (Auto) 0.1 % Neutrophils # (Auto) 13.61 K/uL (1.4-6.5) Lymphocytes # (Auto) 0.63 K/uL (1.2-3.4) Monocytes # (Auto) 0.56 K/uL (0.11-0.59) Eosinophils # (Auto) 0.00 K/uL (0-0.5) Basophils # (Auto) 0.01 K/uL (0-0.2) RDW Standard Deviation 57.6 fL (36.4-46.3) RDW Coefficient of Variation 18.2 % (11.5-14.5) Immature Granulocyte % (Auto) 0.5 % Immature Granulocyte # (Auto) 0.08 K/uL (0.00-0.02) Polychromasia 1+ Prothrombin Time 10.7 SECONDS (9.0-12.0) Prothromb Time International Ratio 1.0 (0.9-1.1) Activated Partial Thromboplast Time 23.8 SECONDS (21.0-31.0) Partial Thromboplastin Ratio 0.9 Anion Gap 12.0 mmol/L (3-11) Est Creatinine Clear Calc Drug Dose 16.8 ml/min Estimated GFR () 25.2 Estimated GFR (Non- 21.7 BUN/Creatinine Ratio 28.5 (10-20) Calcium Level 8.1 mg/dl (8.5-10.1) Allergies Coded Allergies: Doxycycline (Verified Allergy, Severe, RASH, 09/22/16) Trimethoprim (Verified Allergy, Severe, RASH, 09/22/16) Adhesives (Verified Allergy, Unknown, HAD RXN TO [employer] PATCHES, ) Carbamazepine (Verified Allergy, Unknown, 09/22/16) Hydantoins (Verified Allergy, Unknown, 09/22/16) Penicillins (Verified Allergy, Unknown, AMOXIL, 09/22/16) Phenytoin (Verified Allergy, Unknown, 09/22/16) Medications Current Inpatient Medications Medications (Trade) Dose Ordered Sig/Phillip Route Start Time Stop Time Status Last Admin Dose Admin Acetaminophen (Tylenol Tab) 650 mg Q4H PRN PO 09/22/16 19:15 10/22/16 19:14 Zolpidem Tartrate (Ambien Tab) 5 mg HSZ PRN PO 09/22/16 19:15 10/22/16 19:14 Diltiazem HCl (TIAzac CAP) 120 mg BID PO 09/22/16 21:00 10/22/16 20:59 09/25/16 07:32 120 MG Levothyroxine Sodium (Synthroid Tab) 75 mcg DAILYBB PO 09/23/16 06:00 10/23/16 06:59 09/25/16 06:34 75 MCG Ondansetron HCl (Zofran Inj) 4 mg Q6H PRN IV 09/22/16 19:15 10/22/16 19:14 Albuterol/ Ipratropium 3 ml 3 ml QIDR INH 09/23/16 12:00 10/23/16 11:59 09/25/16 07:07 3 ML Cefepime HCl/ Dextrose (Maxipime IV/D5 100ml) 112.5 ml @ 200 mls/hr BID@0200,1400 IV 09/23/16 14:00 09/30/16 13:59 09/25/16 02:23 200 MLS/HR Azithromycin (Zithromax Tab) 500 mg QAM PO 09/23/16 14:00 09/30/16 13:59 09/25/16 07:34 500 MG Codeine Phosphate/ Guaifenesin (Robitussin-AC Sugar Free Syrup) 10 ml Q6H PRN PO 09/23/16 16:00 10/23/16 15:59 09/23/16 16:27 10 ML Sodium Bicarbonate 650 mg 650 mg BID PO 09/23/16 21:00 10/23/16 20:59 09/25/16 07:32 650 MG Methylprednisolone Sodium Succinate/ Dextrose (Solu-Medrol IV/ D5 250ml) 258 ml @ 266 mls/hr DAILY IV 09/24/16 11:00 09/25/16 09:59 09/25/16 07:31 266 MLS/HR Alprazolam (Xanax Tab) 0.5 mg Q8H PRN PO 09/24/16 19:00 10/24/16 18:59 09/25/16 07:31 0.5 MG Pantoprazole Sodium (Protonix Tab) 40 mg BID PO 09/24/16 21:00 10/24/16 20:59 09/25/16 07:33 40 MG Impression (1) ANA PAULA (acute kidney injury) (2) Metabolic acidosis (3) Hemoptysis (4) Anemia (5) Aortic Valve Disorder (6) Chronic Kidney Disease, Unspecified (7) Hypertension Nos Anusha is a 86-year-old female with the acute kidney injury, prior history of dialysis requiring acute kidney injury with recovery, chronic kidney disease, prior history of nephrotic syndrome, history of seizure disorder, severe aortic stenosis and history of pulmonary embolism before. she was admitted to the hospital we hemodialysis and respiratory distress over the last few days PA and CT scan of chest on admission was concerning for pulmonary opacity suggestive of pulmonary vascular congestion versus, pneumonia vs pulmonary hemorrhage raising the concern for vasculitis with pulmonary renal syndrome. She has been on high-flow nasal cannula oxygen. Has baseline stage 3 chronic kidney disease creating 1.2-1.4, prior history of nephrotic syndrome and dialysis requiring acute kidney injury in 2007 with significant recovery. Prior urinalysis was unremarkable, urine amylase is 2 days pending. On admission creatinine was 2.1 which has been stable, creatinine staying at around 2-2.1. Has non gap metabolic acidosis and bicarbonate staying an 19-20. She has been non oliguria. On admission she received 2 units of blood transfusion, hemoglobin improved to 8.3 however again dropped to 7.6 this morning. she continues to have occasional hemoptysis. received pulse dose steroid tired dose was today. She is on empiric antibiotic for possible pneumonia. CRP was elevated, Anca pending. Recommendations --Renal function remained stable, nonoliguric, creatinine around 2.0-2. -- received pulse dose steroid, U/A negative, unlikely renal vasculitis.continues to have occasional hemoptysis, Hb dropped again today currently getting 1 unit of blood transfusion --monitor intake and output. --check H&H every 12 hours -- monitor renal panel daily --continue on oral sodium bicarb 650 milligram twice a day --discussed in detail with the patient's son Travis over telephone and answered questions ( [phone]) Will follow
--- NOTE | 2016-09-25 14:11 | Pulmonology Progress Note ---
Pulmonary Progress Note Date of Service Sep 25, 2016. Attending Dr. 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 Objective Patient looks fatigued using accessory muscles notably tachypnea during conversation Vital signs: Reviewed patient requiring high flow oxygen saturating in the low 90s Cardiac: S1-S2 regular rate and rhythm Respiratory: Clear to auscultation bilaterally Abdomen: Decreased bowel sounds but no tenderness to palpation Rectum: Minimal hemorrhoids but no signs of active bleeding CBC reviewed no signs of schistocytes from 09/25/2016 ProBNP 09/23/16: 16,740 C-reactive protein 09/23/2016: 9.21 C-reactive protein 11/09/2007: 5.5 Total complement 07/04/2008: 38(within normal limits) 07/13/2008 Anticardiolipin antibody IgG: Elevated 27 07/13/2008 Anticardiolipin antibody IgA: Within normal limits 13 07/13/2008 Anticardiolipin IgM antibody: Elevated 74 06/12/2014 C3: Low 64 06/12/2014 C4: Within normal limits 18 Pending: [place]urcio screen oAnti-myeloperoxidase oANCA Radiology: Upper extremity venous Dopplers 09/23/2016 No signs of DVT superficial phlebitis noted Lower extremity DVTs: 09/23/2016 No evidence of acute deep venous thrombosis bilaterally Superficial veins of the left popliteal fossa suggestive of superficial thrombophlebitis Bilateral small popliteal cyst Assessment & Plan 78-year-old female admitted with hemoptysis and progressive hypoxemia: #1 Hemoptysis: At this time the most likely etiologies are: Diffuse alveolar hemorrhage, infection with associated aortic insufficiency/heart failure: It is difficult to differentiate at this time as the patient's age would be characteristic for vasculitis but 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 This admission was not associated with diffuse alveolar hemorrhage at that time but renal insufficiency, currently no signs of nephritic urine. As we are unable to obtain definitive diagnosis from either bronchoscopy with transbronchial biopsies or surgical lung biopsy as the patient is high risk for ventilatory failure and requirement of mechanical ventilation I recommend we continue with current management plan: Steroids: This should be the last day of pulse dose steroids will continue after this at 0.5 mg/kg Antibiotics: Continue at this time for 7-10 day course Heart failure: Continue aggressive I/O maintenance. #2 mortality: Patient continues to have high mortality probability. I've spoken to the family at length about this. Data Medications: Current Inpatient Medications Medications (Trade) Dose Ordered Sig/Phillip Route Start Time Stop Time Status Last Admin Dose Admin Acetaminophen (Tylenol Tab) 650 mg Q4H PRN PO 09/22/16 19:15 10/22/16 19:14 Zolpidem Tartrate (Ambien Tab) 5 mg HSZ PRN PO 09/22/16 19:15 10/22/16 19:14 Diltiazem HCl (TIAzac CAP) 120 mg BID PO 09/22/16 21:00 10/22/16 20:59 09/25/16 07:32 120 MG Levothyroxine Sodium (Synthroid Tab) 75 mcg DAILYBB PO 09/23/16 06:00 10/23/16 06:59 09/25/16 06:34 75 MCG Ondansetron HCl (Zofran Inj) 4 mg Q6H PRN IV 09/22/16 19:15 10/22/16 19:14 Albuterol/ Ipratropium 3 ml 3 ml QIDR INH 09/23/16 12:00 10/23/16 11:59 09/25/16 11:15 3 ML Cefepime HCl/ Dextrose (Maxipime IV/D5 100ml) 112.5 ml @ 200 mls/hr BID@0200,1400 IV 09/23/16 14:00 09/30/16 13:59 09/25/16 02:23 200 MLS/HR Azithromycin (Zithromax Tab) 500 mg QAM PO 09/23/16 14:00 09/30/16 13:59 09/25/16 07:34 500 MG Codeine Phosphate/ Guaifenesin (Robitussin-AC Sugar Free Syrup) 10 ml Q6H PRN PO 09/23/16 16:00 10/23/16 15:59 09/23/16 16:27 10 ML Sodium Bicarbonate (Sodium Bicarbonate Tab) 650 mg BID PO 09/23/16 21:00 10/23/16 20:59 09/25/16 07:32 650 MG Alprazolam (Xanax Tab) 0.5 mg Q8H PRN PO 09/24/16 19:00 10/24/16 18:59 09/25/16 07:31 0.5 MG Pantoprazole Sodium (Protonix Tab) 40 mg BID PO 09/24/16 21:00 10/24/16 20:59 09/25/16 07:33 40 MG I & O: 24-Hour Column 09/25/16 07:59 Intake Total 1065 ml Output Total 1825 ml Balance -760 ml Vital Signs: Date Time Temp Pulse Resp B/P Pulse Ox O2 Delivery O2 Flow Rate FiO2 09/25/16 11:15 85 20 94 Nasal Cannula 40.0 51 09/25/16 11:05 36.4 69 21 117/58 94 High Flow Oxygen 50 Humidified Oxygen 09/25/16 08:00 High Flow Oxygen 40.0 50 09/25/16 07:08 78 20 96 Nasal Cannula 40.0 60 09/25/16 07:03 36.5 63 22 115/54 93 High Flow Oxygen 09/25/16 04:00 High Flow Oxygen 40.0 50 09/25/16 03:36 36.5 75 20 104/76 90 High Flow Oxygen 09/25/16 00:00 High Flow Oxygen 40.0 50 09/24/16 23:23 38.6 79 20 107/50 95 High Flow Oxygen 40.0 09/24/16 20:00 High Flow Oxygen 40.0 50 09/24/16 19:40 78 20 95 Nasal Cannula 40.0 55 09/24/16 19:33 36.7 72 25 121/47 96 High Flow Oxygen 09/24/16 16:52 36.5 81 16 114/65 94 High Flow Oxygen 40.0 50 09/24/16 16:00 High Flow Oxygen 40.0 50 09/24/16 15:34 74 16 98 Nasal Cannula 40.0 65 09/24/16 14:55 36.7 75 29 114/62 96 High Flow Oxygen Laboratory Results: Last 24 Hours Test 09/25/16 05:28 09/25/16 13:23 09/25/16 13:46 White Blood Count 14.89 K/uL Red Blood Count 2.41 M/uL Hemoglobin 7.6 g/dL Hematocrit 22.4 % Mean Corpuscular Volume 92.9 fL Mean Corpuscular Hemoglobin 31.5 pg Mean Corpuscular Hemoglobin Concent 33.9 g/dl Platelet Count 169 K/uL Mean Platelet Volume 9.4 fL Neutrophils (%) (Auto) 91.4 % Lymphocytes (%) (Auto) 4.2 % Monocytes (%) (Auto) 3.8 % Eosinophils (%) (Auto) 0.0 % Basophils (%) (Auto) 0.1 % Neutrophils # (Auto) 13.61 K/uL Lymphocytes # (Auto) 0.63 K/uL Monocytes # (Auto) 0.56 K/uL Eosinophils # (Auto) 0.00 K/uL Basophils # (Auto) 0.01 K/uL RDW Standard Deviation 57.6 fL RDW Coefficient of Variation 18.2 % Immature Granulocyte % (Auto) 0.5 % Immature Granulocyte # (Auto) 0.08 K/uL Polychromasia 1+ Prothrombin Time 10.7 SECONDS Prothromb Time International Ratio 1.0 Activated Partial Thromboplast Time 23.8 SECONDS Partial Thromboplastin Ratio 0.9 Sodium Level 142 mmol/L Potassium Level 3.6 mmol/L Chloride Level 110 mmol/L Carbon Dioxide Level 20 mmol/L Anion Gap 12.0 mmol/L Blood Urea Nitrogen 57 mg/dl Creatinine 2.00 mg/dl Est Creatinine Clear Calc Drug Dose 16.8 ml/min Estimated GFR () 25.2 Estimated GFR (Non- 21.7 BUN/Creatinine Ratio 28.5 Random Glucose 179 mg/dl Calcium Level 8.1 mg/dl Absolute Reticulocyte Count 0.20 10^6/uL Percent Reticulocyte Count 7.7 %
--- NOTE | 2016-09-25 15:02 | Progress Note ---
Subjective Date of Service: Sep 25, 2016. Subjective Pt evaluation today including: conversation w/ patient, conversation w/ family , physical exam, chart review, lab review, review of studies, conversation w/ otm consultant, review of inpatient medication list still have mild labored breathing in high flow oxygen, but generally looks not worse than yesterday or the day before, Still cough up fresh blood, moderate amount, but compared to the [place] when she was admitted seems a little bit less Denied chest pain, deny fever and chills, Problem List Medical Problems: (1) Acute renal failure Status: Acute (2) Anemia Status: Acute Review of Systems Constitutional: + fatigue, + weakness, No chills, No fever, No problem reported , No sweats, No weight loss Eyes: No diplopia, No discharge, No eye pain, No redness, No worsening of vision ENT: No dental problems, No hearing loss, No nasal symptoms, No sore throat, No tinnitus, No trouble swallowing, No unusual epistaxis Respiratory: + cough, + dyspnea at rest (mild), + dyspnea on exertion, + shortness of breath, No hemoptysis, No sputum, No wheezing Cardiac: No PND, No chest pain, No claudication, No edema, No orthopnea, No palpitations Abdomen: No constipation, No diarrhea, No nausea, No pain, No vomiting Musculoskeletal: No calf pain, No joint pain, No muscle pain, No swelling Female : No abnormal vaginal bleeding, No dysuria, No hematuria, No incontinence, No urinary frequency, No vaginal discharge Neurologic: No balance problems, No memory loss, No numbness/tingling, No paralysis, No vertigo, No weakness Psychiatric: No anhedonism, No anxiety, No depression symptoms, No insomnia, No substance abuse Heme: No abnormal bleeding/bruising, No clotting problems, No night sweats, No swollen lymph nodes Endo: No excessive thirst, No excessive urination, No fatigue Skin: No bleeding, No color change, No itch, No new/changing skin lesions, No rash Objective Vital Signs Date Time Temp Pulse Resp B/P Pulse Ox O2 Delivery O2 Flow Rate FiO2 09/25/16 12:00 High Flow Oxygen 40.0 50 09/25/16 11:15 85 20 94 Nasal Cannula 40.0 51 09/25/16 11:05 36.4 69 21 117/58 94 High Flow Oxygen 50 Humidified Oxygen 09/25/16 08:00 High Flow Oxygen 40.0 50 09/25/16 07:08 78 20 96 Nasal Cannula 40.0 60 09/25/16 07:03 36.5 63 22 115/54 93 High Flow Oxygen 09/25/16 04:00 High Flow Oxygen 40.0 50 09/25/16 03:36 36.5 75 20 104/76 90 High Flow Oxygen 09/25/16 00:00 High Flow Oxygen 40.0 50 09/24/16 23:23 38.6 79 20 107/50 95 High Flow Oxygen 40.0 09/24/16 20:00 High Flow Oxygen 40.0 50 09/24/16 19:40 78 20 95 Nasal Cannula 40.0 55 09/24/16 19:33 36.7 72 25 121/47 96 High Flow Oxygen 09/24/16 16:52 36.5 81 16 114/65 94 High Flow Oxygen 40.0 50 09/24/16 16:00 High Flow Oxygen 40.0 50 09/24/16 15:34 74 16 98 Nasal Cannula 40.0 65 09/24/16 14:55 36.7 75 29 114/62 96 High Flow Oxygen Physical Exam General Appearance: WD/WN, + thin, + pertinent finding (mild anxious) Eyes: normal inspection, PERRL ENT: normal ENT inspection, hearing grossly normal, + pertinent finding (on high flow oxygen) Neck: supple, no adenopathy Respiratory/Chest: chest non-tender, + decreased breath sounds Cardiovascular: regular rate, rhythm, no edema, no gallop, no JVD, + systolic murmur Abdomen: normal bowel sounds, non tender, soft, no organomegaly, no pulsatile mass Extremities: normal range of motion, non-tender, normal inspection, no pedal edema, no calf tenderness, normal capillary refill, pelvis stable Neurologic/Psychiatric: vp director of creative strategy II-XII nml as tested, no motor/sensory deficits, alert, normal mood/affect, oriented x 3 Skin: normal color, warm/dry, no rash Laboratory Results Last 24 Hours Test 09/25/16 05:28 09/25/16 13:23 09/25/16 13:46 White Blood Count 14.89 K/uL Red Blood Count 2.41 M/uL Hemoglobin 7.6 g/dL Hematocrit 22.4 % Mean Corpuscular Volume 92.9 fL Mean Corpuscular Hemoglobin 31.5 pg Mean Corpuscular Hemoglobin Concent 33.9 g/dl Platelet Count 169 K/uL Mean Platelet Volume 9.4 fL Neutrophils (%) (Auto) 91.4 % Lymphocytes (%) (Auto) 4.2 % Monocytes (%) (Auto) 3.8 % Eosinophils (%) (Auto) 0.0 % Basophils (%) (Auto) 0.1 % Neutrophils # (Auto) 13.61 K/uL Lymphocytes # (Auto) 0.63 K/uL Monocytes # (Auto) 0.56 K/uL Eosinophils # (Auto) 0.00 K/uL Basophils # (Auto) 0.01 K/uL RDW Standard Deviation 57.6 fL RDW Coefficient of Variation 18.2 % Immature Granulocyte % (Auto) 0.5 % Immature Granulocyte # (Auto) 0.08 K/uL Polychromasia 1+ Prothrombin Time 10.7 SECONDS Prothromb Time International Ratio 1.0 Activated Partial Thromboplast Time 23.8 SECONDS Partial Thromboplastin Ratio 0.9 Sodium Level 142 mmol/L Potassium Level 3.6 mmol/L Chloride Level 110 mmol/L Carbon Dioxide Level 20 mmol/L Anion Gap 12.0 mmol/L Blood Urea Nitrogen 57 mg/dl Creatinine 2.00 mg/dl Est Creatinine Clear Calc Drug Dose 16.8 ml/min Estimated GFR () 25.2 Estimated GFR (Non- 21.7 BUN/Creatinine Ratio 28.5 Random Glucose 179 mg/dl Calcium Level 8.1 mg/dl Absolute Reticulocyte Count 0.20 10^6/uL Percent Reticulocyte Count 7.7 % Assessment and Plan 86-year-old white female admitted on 09/22/2016 because of Extensive hemoptysis/ acute respiratory failure with hypoxia and acute on chronic kidney failure Hemoptysis: Still going on Nephrology and pulmonology on the case Differential diagnosis include Diffuse alveolar hemorrhage, infection with associated aortic insufficiency/heart failure, vasculitis 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 Acute on chronic kidney failure stage III, history of acute interstitial nephritis, etiology unknown, Creatinine relative to stable Acute on chronic anemia possible from blood loss from hemoptysis, other differential diagnosis include hemodialysis or else Improved after 2 unit blood transfusion upon admission, however hemoglobin level dropped to 7.6 again today from 8.3 We'll ordered 1 unit blood effusion hx of Seizures, Pulmonary embolism not on anticoag b/c bleeding, hx of TIA: Stable and watch HTN Hypothyroism Hyperchol : Continue current medication, but hold her blood pressure medicine because as BP is low, and she required to IV fluid bolus last night History of bilat hip arthroplasty hx of CAD/Atrial fibrillation/aortic valve stenosis/CHF history/hypertension: Stable Cardizem 120 mg by mouth twice a day, and continue lisinopril 20 mg by mouth every 12 hours hold with parameter Discussed with data entry supervisor and nephrology about care plan, currently no signs of nephritic urine. Per data entry supervisor , unable to obtain definitive diagnosis from either bronchoscopy with transbronchial biopsies or surgical lung biopsy as the patient is high risk for ventilatory failure and requirement of mechanical ventilation Has been on Steroids: the last day of pulse dose steroids will continue after this at 0.5 mg/kg Antibiotics: Continue at this time for 7-10 day course Heart failure: Continue aggressive I/O maintenance, Lasix as needed GI prophylaxis is covered DVT prophylaxis SCD, no heparin because of contraindicated with the hemoptysis Poor prognosis because of age, multiple severe medical conditions and comorbidity In bedside was present with patient, patient's sons, and daughter. I discussed with patient and patient's family about patient's conditions, I told them patient's condition is guarded, Discussed the options of the care, again include transfer to tertiary Medical Center, patient and family do not want to transfer, cont to the supportive care and no heroic care I mentioned about the options of palliative care, sons agreeable to talk to palliative Care service, which can be done on Wednesday , I answered all questions to their satisfactions. Continued [facility] stay due to: abnormal vital signs, multiple IV medications needed Discharge planning: uncertain
[2016-09-25] MEDS: GUAIFENESIN/CODEINE 200MG/20MG 10ML UDC PO PRN (15:28)
[2016-09-26] VITALS (10 sets, daily range): BP systolic 113–151; BP diastolic 53–65; PULSE 65–76; TEMP 36.4–36.7; O2SAT 90–98
[2016-09-26] MEDS: CEFEPIME IV 2,000 MG in DEXTROSE 5% 100ML 100 ML IV SCH ×2 (02:35→13:56)
[2016-09-26] MEDS: LEVOTHYROXINE 75 MCG TAB PO SCH (06:07)
[2016-09-26 06:19] LABS: BUN/CREATININE RATIO 30.5 (10-20); CALCIUM 8.5 mg/dl (8.5-10.1); CREATININE 1.9 mg/dl (0.60-1.20); PHOSPHORUS 3.4 mg/dl (2.5-4.9); POTASSIUM 3.8 mmol/L (3.5-5.1)
[2016-09-26] MEDS: ALBUT/IPRATROP 3MG/0.5MG NEB 3 ML VIAL INH SCH ×4 (07:07→18:56)
[2016-09-26 08:27] LABS: BASO % 0.1 %; BASO ABS # 0.01 K/uL (0-0.2); HEMATOCRIT 25.2 % (37-47); IG% 1.3 %; LYMPH % 5.1 %; LYMPH ABS # 0.64 K/uL (1.2-3.4); MEAN CORPUSCULAR HEMOGLOBIN 31.3 pg (25-34); MEAN CORPUSCULAR HGB CONC 33.3 g/dl (32-36); MEAN PLATELET VOLUME 9.4 fL (7.4-10.4); MONO % 2.7 %; NEUT % 90.8 %; PLATELET COUNT 195 K/uL (130-400); RED BLOOD COUNT 2.68 M/uL (4.2-5.4); WHITE BLOOD COUNT 12.43 K/uL (4.8-10.8)
[2016-09-26] MEDS: SODIUM BICARBONATE 650 MG TAB PO SCH ×2 (08:55→20:05)
[2016-09-26] MEDS: DILTIAZEM HCL 120 MG EXT REL CAP PO SCH ×2 (08:55→20:05)
[2016-09-26] MEDS: AZITHROMYCIN 250 MG TAB PO SCH (08:55)
[2016-09-26] MEDS: PANTOprazole SOD 40 MG TAB PO SCH ×2 (08:55→20:05)
--- NOTE | 2016-09-26 09:03 | Progress Note ---
Subjective Date of Service: Sep 26, 2016. Subjective Pt evaluation today including: conversation w/ patient, conversation w/ family , physical exam, chart review, lab review, review of studies, conversation w/ datapower consultant, review of inpatient medication list Voiding: no voiding problems high Follow oxygen was tapered down to nasal cannula 5 L/m, patient looks good, no labored breathing, Osat at 93% in 5 L/m, report on the small amount of coughing up blood time one this morning, generally the blood product from cough is getting less compare to when she was admitted . Complaint mild burping, passing gas, has bowel movement, denied chest pain, Problem List Medical Problems: (1) Acute renal failure Status: Acute (2) Anemia Status: Acute Review of Systems Constitutional: + weakness, No chills, No fatigue, No fever, No problem reported, No see HPI, No sweats, No weight loss Eyes: No diplopia, No discharge, No eye pain, No problem reported, No redness, No see HPI, No worsening of vision ENT: No dental problems, No hearing loss, No nasal symptoms, No problem reported, No see HPI, No sore throat, No tinnitus, No trouble swallowing, No unusual epistaxis Respiratory: + cough, + see HPI, + shortness of breath Cardiac: No PND, No chest pain, No claudication, No edema, No orthopnea, No palpitations, No problem reported, No see HPI Abdomen: No GI bleeding, No constipation, No diarrhea, No nausea, No pain, No problem reported, No see HPI, No vomiting Musculoskeletal: No calf pain, No joint pain, No muscle pain, No problem reported, No see HPI, No swelling Female : No abnormal vaginal bleeding, No dysuria, No hematuria, No incontinence, No problem reported, No see HPI, No urinary frequency, No vaginal discharge Neurologic: No balance problems, No memory loss, No numbness/tingling, No paralysis, No problem reported, No see HPI, No vertigo, No weakness Psychiatric: No anhedonism, No anxiety, No depression symptoms, No insomnia, No problem reported, No see HPI, No substance abuse Heme: No abnormal bleeding/bruising, No clotting problems, No night sweats, No problem reported, No see HPI, No swollen lymph nodes Endo: No excessive thirst, No excessive urination, No fatigue, No problem reported, No see HPI Skin: No bleeding, No color change, No itch, No new/changing skin lesions, No problem reported, No rash, No see HPI Objective Vital Signs Date Time Temp Pulse Resp B/P Pulse Ox O2 Delivery O2 Flow Rate FiO2 09/26/16 08:10 Nasal Cannula 5.0 09/26/16 07:27 36.4 76 20 147/65 91 High Flow Oxygen 09/26/16 07:11 67 20 97 Nasal Cannula 40.0 55 09/26/16 04:00 High Flow Oxygen 40.0 50 09/26/16 03:40 36.4 65 28 113/58 90 High Flow Oxygen 50 09/26/16 00:00 High Flow Oxygen 40.0 50 09/25/16 23:02 36.7 74 27 138/65 92 High Flow Oxygen 50 09/25/16 20:19 36.6 74 18 131/73 94 High Flow Oxygen 50 09/25/16 20:00 High Flow Oxygen 40.0 50 09/25/16 18:50 73 20 94 Nasal Cannula 40.0 55 09/25/16 16:00 High Flow Oxygen 40.0 50 09/25/16 15:50 36.5 72 20 122/50 95 High Flow Oxygen 50 09/25/16 15:17 85 20 94 Nasal Cannula 40.0 55 09/25/16 12:00 High Flow Oxygen 40.0 50 09/25/16 11:15 85 20 94 Nasal Cannula 40.0 51 09/25/16 11:05 36.4 69 21 117/58 94 High Flow Oxygen 50 Humidified Oxygen Physical Exam General Appearance: WD/WN, no apparent distress, + thin, + pertinent finding ( frail conversational) Eyes: normal inspection, PERRL, EOMI, sclerae normal ENT: normal ENT inspection, hearing grossly normal, pharynx normal Neck: supple, no adenopathy, thyroid normal, no JVD, no carotid bruits, trachea midline Respiratory/Chest: chest non-tender, normal breath sounds, no respiratory distress, no accessory muscle use, + decreased breath sounds, + wheezing ( occasional) Cardiovascular: regular rate, rhythm, no edema, no gallop, no JVD, no murmur, + systolic murmur (3/6) Abdomen: normal bowel sounds, non tender, soft, no organomegaly, no pulsatile mass Extremities: normal range of motion, non-tender, normal inspection, no pedal edema, no calf tenderness, normal capillary refill, pelvis stable Neurologic/Psychiatric: jewel supervisor II-XII nml as tested, no motor/sensory deficits, alert, normal mood/affect, oriented x 3 Skin: normal color, warm/dry, no rash Lymphatic: no adenopathy Laboratory Results Last 24 Hours Test 09/25/16 13:23 09/25/16 13:46 09/26/16 05:08 09/26/16 08:20 Absolute Reticulocyte Count 0.20 10^6/uL Percent Reticulocyte Count 7.7 % Sodium Level 143 mmol/L Potassium Level 3.8 mmol/L Chloride Level 111 mmol/L Carbon Dioxide Level 21 mmol/L Anion Gap 11.0 mmol/L Blood Urea Nitrogen 58 mg/dl Creatinine 1.90 mg/dl Est Creatinine Clear Calc Drug Dose 17.7 ml/min Estimated GFR () 26.8 Estimated GFR (Non- 23.1 BUN/Creatinine Ratio 30.5 Random Glucose 173 mg/dl Calcium Level 8.5 mg/dl Phosphorus Level 3.4 mg/dl Albumin 2.8 gm/dl White Blood Count 12.43 K/uL Red Blood Count 2.68 M/uL Hemoglobin 8.4 g/dL Hematocrit 25.2 % Mean Corpuscular Volume 94.0 fL Mean Corpuscular Hemoglobin 31.3 pg Mean Corpuscular Hemoglobin Concent 33.3 g/dl Platelet Count 195 K/uL Mean Platelet Volume 9.4 fL Neutrophils (%) (Auto) 90.8 % Lymphocytes (%) (Auto) 5.1 % Monocytes (%) (Auto) 2.7 % Eosinophils (%) (Auto) 0.0 % Basophils (%) (Auto) 0.1 % Neutrophils # (Auto) 11.29 K/uL Lymphocytes # (Auto) 0.64 K/uL Monocytes # (Auto) 0.33 K/uL Eosinophils # (Auto) 0.00 K/uL Basophils # (Auto) 0.01 K/uL RDW Standard Deviation 59.9 fL RDW Coefficient of Variation 18.3 % Immature Granulocyte % (Auto) 1.3 % Immature Granulocyte # (Auto) 0.16 K/uL Magnesium Level 2.5 mg/dl Assessment and Plan 86-year-old white female admitted on 09/22/2016 because of Extensive hemoptysis/ acute respiratory failure with hypoxia and acute on chronic kidney failure Hemoptysis: Significant improving Hypoxia, possible improving compared to yesterday which is evidence by tapered down from high flow O2 nasal cannula, she continue feel good on nasal cannula oxygen Nephrology and pulmonology on the case Differential diagnosis include Diffuse alveolar hemorrhage, infection with associated aortic insufficiency/heart failure, vasculitis 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 Acute on chronic kidney failure stage III, history of acute interstitial nephritis, etiology unknown, Creatinine relative to stable and little bit improved today possible approaching to baseline Acute on chronic anemia possible from blood loss from hemoptysis, other differential diagnosis include hemodialysis or else Improved after 2 unit blood transfusion upon admission, however hemoglobin level dropped to 7.6 again yesterday from 8.3 Was planning to have blood transfusion 1 unit yesterday, patient did not get it because of the blood type, however and this morning's hemoglobin level was up to 8.4 without transfusion The anemia and low hemoglobin level yesterday was possible from lab variation, I don't think we need to transfusion now because hemoglobin up to 8.4 hx of Seizures, Pulmonary embolism not on anticoag b/c bleeding, hx of TIA: Stable and watch HTN Hypothyroism Hyperchol : Continue current medication, stable History of bilat hip arthroplasty hx of CAD/Atrial fibrillation/aortic valve stenosis/CHF history/hypertension: Stable Cardizem 120 mg by mouth twice a day, Discussed with international trade teacher and nephrology about care plan, Per international trade teacher , unable to obtain definitive diagnosis from either bronchoscopy with transbronchial biopsies or surgical lung biopsy as the patient is high risk for ventilatory failure and requirement of mechanical ventilation Has been on Steroids: pulse dose steroids has completed Antibiotics: Continue at this time for 7-10 day course Heart failure: Continue aggressive I/O maintenance, Lasix as needed GI prophylaxis is covered DVT prophylaxis SCD, no heparin because of contraindicated with the hemoptysis , prognosis is guarded Updated patient's condition with 2 sons in bedside, possible out of bed PTOT, possible DC Fritz soon Continued [facility] stay due to: abnormal vital signs, multiple IV medications needed Discharge planning: uncertain
[2016-09-26 09:04] LABS: COMPLETE YES
[2016-09-26] MEDS ORDERED: METHYLPREDNISOLONE IV 60 MG in SYRINGE 0 ML IV ONE (10:00)
--- NOTE | 2016-09-26 10:30 | Nephrology Progress Note ---
Nephrology Progress Note Date of Service Sep 26, 2016. Chief Complaint Follow up evaluation of this patient admitted with hypoxemia and acute on CKD Subjective Ms. Rivera was seen & examined in the ICU this am. Her sons Travis & Godwin were present at bedside. The patient was admitted w/ acute hypoxia, pulmonary infiltrates, profound anemia and acute on CKD. She reports that she is breathing comfortably on O2 at 5 L / min NC. She has had no further hemoptysis overnight. The patient presented w/ profound anemia. She has been transfused [address] is c/w pulmonary hemorrhage and possible pneumonia. Vasculitis studies have been drawn. Patient denies overt bleeding overnight Ms. Rivera has CKD w/ baseline creatinine 1.4. She developed ANA PAULA related to anemia and relative hypotension. Patient reports good urine output. She is requesting to have the sweet catheter removed and allowed to increase activity. Review of Systems Constitutional: No fever Cardiovascular: No chest pain Respiratory: + dyspnea on exertion, No dyspnea at rest Abdomen: No nausea, No pain Genitourinary - Female: No gross hematuria Extremities: No leg edema A complete review of systems was performed. Pertinent positives are noted above. All other systems are negative. Vital Signs Last 8 Hrs Date Time Temp Pulse Resp B/P Pulse Ox O2 Delivery O2 Flow Rate FiO2 09/26/16 08:10 Nasal Cannula 5.0 09/26/16 07:27 36.4 76 20 147/65 91 High Flow Oxygen 09/26/16 07:11 67 20 97 Nasal Cannula 40.0 55 09/26/16 04:00 High Flow Oxygen 40.0 50 09/26/16 03:40 36.4 65 28 113/58 90 High Flow Oxygen 50 I & O 24-Hour Column 09/26/16 08:00 Intake Total 750 ml Output Total 1475 ml Balance -725 ml Last Recorded Weight Weight (Kilograms): 56.800 Physical Exam General Appearance: no apparent distress Head: atraumatic Eyes: PERRL, EOMI Neck: no adenopathy Respiratory/Chest: lungs clear, no respiratory distress Cardiovascular: regular rate, rhythm Abdomen/GI: normal bowel sounds, non tender, soft Genitourinary - Female: + pertinent finding (sweet catheter draining clear yellow urine) Extremities/Musculoskelatal: no calf tenderness, no pedal edema Neurologic/Psych: alert, oriented x 3 Family History Heart disease Social History Smokeless Tobacco Use: No Alcohol Use: none Drug Use: none Marital Status: 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 Laboratory Results Past 24 Hours 09/26/16 08:20 Red Blood Count 2.68, Mean Corpuscular Volume 94.0, Mean Corpuscular Hemoglobin 31.3, Mean Corpuscular Hemoglobin Concent 33.3, Mean Platelet Volume 9.4, Neutrophils (%) (Auto) 90.8, Lymphocytes (%) (Auto) 5.1, Monocytes (%) (Auto) 2.7, Eosinophils (%) (Auto) 0.0, Basophils (%) (Auto) 0.1, Neutrophils # (Auto) 11.29, Lymphocytes # (Auto) 0.64, Monocytes # (Auto) 0.33, Eosinophils # (Auto) 0.00, Basophils # (Auto) 0.01 09/26/16 05:08 Test 09/25/16 13:23 09/25/16 13:46 09/26/16 05:08 09/26/16 08:20 Absolute Reticulocyte Count 0.20 10^6/uL (0.02-0.10) Percent Reticulocyte Count 7.7 % (0.5-2.0) Anion Gap 11.0 mmol/L (3-11) Est Creatinine Clear Calc Drug Dose 17.7 ml/min Estimated GFR () 26.8 Estimated GFR (Non- 23.1 BUN/Creatinine Ratio 30.5 (10-20) Calcium Level 8.5 mg/dl (8.5-10.1) Phosphorus Level 3.4 mg/dl (2.5-4.9) Albumin 2.8 gm/dl (3.4-5.0) White Blood Count 12.43 K/uL (4.8-10.8) Red Blood Count 2.68 M/uL (4.2-5.4) Hemoglobin 8.4 g/dL (12.0-16.0) Hematocrit 25.2 % (37-47) Mean Corpuscular Volume 94.0 fL (80-100) Mean Corpuscular Hemoglobin 31.3 pg (25-34) Mean Corpuscular Hemoglobin Concent 33.3 g/dl (32-36) Platelet Count 195 K/uL (130-400) Mean Platelet Volume 9.4 fL (7.4-10.4) Neutrophils (%) (Auto) 90.8 % Lymphocytes (%) (Auto) 5.1 % Monocytes (%) (Auto) 2.7 % Eosinophils (%) (Auto) 0.0 % Basophils (%) (Auto) 0.1 % Neutrophils # (Auto) 11.29 K/uL (1.4-6.5) Lymphocytes # (Auto) 0.64 K/uL (1.2-3.4) Monocytes # (Auto) 0.33 K/uL (0.11-0.59) Eosinophils # (Auto) 0.00 K/uL (0-0.5) Basophils # (Auto) 0.01 K/uL (0-0.2) RDW Standard Deviation 59.9 fL (36.4-46.3) RDW Coefficient of Variation 18.3 % (11.5-14.5) Immature Granulocyte % (Auto) 1.3 % Immature Granulocyte # (Auto) 0.16 K/uL (0.00-0.02) Macrocytosis PRESENT Magnesium Level 2.5 mg/dl (1.8-2.4) Allergies Coded Allergies: Doxycycline (Verified Allergy, Severe, RASH, 09/22/16) Trimethoprim (Verified Allergy, Severe, RASH, 09/22/16) Adhesives (Verified Allergy, Unknown, HAD RXN TO [employer]OLTER [employer] PATCHES, ) Carbamazepine (Verified Allergy, Unknown, 09/22/16) Hydantoins (Verified Allergy, Unknown, 09/22/16) Penicillins (Verified Allergy, Unknown, AMOXIL, 09/22/16) Phenytoin (Verified Allergy, Unknown, 09/22/16) Medications Current Inpatient Medications Medications (Trade) Dose Ordered Sig/Phillip Route Start Time Stop Time Status Last Admin Dose Admin Acetaminophen (Tylenol Tab) 650 mg Q4H PRN PO 09/22/16 19:15 10/22/16 19:14 Zolpidem Tartrate (Ambien Tab) 5 mg HSZ PRN PO 09/22/16 19:15 10/22/16 19:14 Diltiazem HCl (TIAzac CAP) 120 mg BID PO 09/22/16 21:00 10/22/16 20:59 09/26/16 08:55 120 MG Levothyroxine Sodium (Synthroid Tab) 75 mcg DAILYBB PO 09/23/16 06:00 10/23/16 06:59 09/26/16 06:07 75 MCG Ondansetron HCl (Zofran Inj) 4 mg Q6H PRN IV 09/22/16 19:15 10/22/16 19:14 Albuterol/ Ipratropium 3 ml 3 ml QIDR INH 09/23/16 12:00 10/23/16 11:59 09/26/16 07:07 3 ML Cefepime HCl/ Dextrose (Maxipime IV/D5 100ml) 112.5 ml @ 200 mls/hr BID@0200,1400 IV 09/23/16 14:00 09/30/16 13:59 09/26/16 02:35 200 MLS/HR Azithromycin (Zithromax Tab) 500 mg QAM PO 09/23/16 14:00 09/30/16 13:59 09/26/16 08:55 500 MG Codeine Phosphate/ Guaifenesin (Robitussin-AC Sugar Free Syrup) 10 ml Q6H PRN PO 09/23/16 16:00 10/23/16 15:59 09/25/16 15:28 10 ML Sodium Bicarbonate (Sodium Bicarbonate Tab) 650 mg BID PO 09/23/16 21:00 10/23/16 20:59 09/26/16 08:55 650 MG Alprazolam (Xanax Tab) 0.5 mg Q8H PRN PO 09/24/16 19:00 10/24/16 18:59 09/25/16 15:29 0.5 MG Pantoprazole Sodium 40 mg 40 mg BID PO 09/24/16 21:00 10/24/16 20:59 09/26/16 08:55 40 MG Methylprednisolone Sodium Succinate/ Syringe (Solu-Medrol IV/ Syringe) 0.96 ml @ 1.5 mls/min DAILY@0900 IV 09/27/16 09:00 10/27/16 08:59 Impression (1) ANA PAULA (acute kidney injury) (2) Metabolic acidosis (3) Hemoptysis (4) Anemia (5) Aortic Valve Disorder (6) Chronic Kidney Disease, Unspecified (7) Hypertension Nos Anusha is a 86-year-old female with the acute kidney injury, prior history of acute kidney injury requiring dialysis with recovery, chronic kidney disease, prior history of nephrotic syndrome, history of seizure disorder, severe aortic stenosis and history of pulmonary embolism. She was admitted to the hospital with respiratory distress and chest CT on admission was concerning for pneumonia vs pulmonary hemorrhage. This raised the concern for vasculitis with pulmonary renal syndrome. Her baseline creatinine has been 1.2-1.4, prior history of nephrotic syndrome and acute kidney injury requiring HD in 2007 with significant recovery. On admission creatinine was 2.1 which has been stable, creatinine staying at around 2-2.1. She has been nonoliguria. Vasculitis studies have been ordered. Recommendations ACUTE KIDNEY INJURY: -- Kidney function has stabilized following blood transfusion. Volume status & electrolyte balance are acceptable. Patient remains nonoliguric. Continue to monitor. -- Baseline creatinine has been 1.4 -- Continue NaHCO3 for correction of metabolic acidosis ANEMIA: -- Patient has been transfused 2 U PRBC. Hgb remains stable at this time -- Coagulation parameters remain normal ID: -- Continue broad spectrum antibiotics. Blood cultures are NGTD -- Pulmonology is following. Await further input. RHEUM: -- Await results of vasculitis studies -- Patient has completed 3 days Solumedrol therapy and will be transitioned to oral prednisone 60 mg daily today OTHER: -- d/c sweet catheter -- Get OOB to chair
[2016-09-27] VITALS (18 sets, daily range): BP systolic 128–156; BP diastolic 54–75; PULSE 67–96; TEMP 36.4–36.6; O2SAT 86–100
[2016-09-27] MEDS: CEFEPIME IV 2,000 MG in DEXTROSE 5% 100ML 100 ML IV SCH ×2 (02:28→14:28)
[2016-09-27] MEDS: LEVOTHYROXINE 75 MCG TAB PO SCH (05:13)
[2016-09-27 06:00] LABS: BASO % 0.3 %; BASO ABS # 0.03 K/uL (0-0.2); HEMATOCRIT 21.8 % (37-47); IG% 3.3 %; LYMPH % 6.3 %; LYMPH ABS # 0.75 K/uL (1.2-3.4); MEAN CORPUSCULAR HEMOGLOBIN 30.8 pg (25-34); MEAN CORPUSCULAR HGB CONC 33.5 g/dl (32-36); MEAN PLATELET VOLUME 9.1 fL (7.4-10.4); MONO % 6.3 %; NEUT % 83.8 %; PLATELET COUNT 175 K/uL (130-400); RED BLOOD COUNT 2.37 M/uL (4.2-5.4); WHITE BLOOD COUNT 11.97 K/uL (4.8-10.8)
[2016-09-27 06:20] LABS: ANISOCYTOSIS PRESENT; COMPLETE YES
[2016-09-27 06:36] LABS: BUN/CREATININE RATIO 35.5 (10-20); CALCIUM 8.2 mg/dl (8.5-10.1); CREATININE 1.6 mg/dl (0.60-1.20); MAGNESIUM 2.8 mg/dl (1.8-2.4)
[2016-09-27] MEDS: ALBUT/IPRATROP 3MG/0.5MG NEB 3 ML VIAL INH SCH ×4 (06:55→19:48)
[2016-09-27] MEDS: SODIUM BICARBONATE 650 MG TAB PO SCH (07:52)
[2016-09-27] MEDS: PANTOprazole SOD 40 MG TAB PO SCH ×2 (07:52→20:21)
[2016-09-27] MEDS: METHYLPREDNISOLONE IV 60 MG in SYRINGE 0 ML IV SCH (07:52)
[2016-09-27] MEDS: DILTIAZEM HCL 120 MG EXT REL CAP PO SCH ×2 (07:53→20:21)
[2016-09-27] MEDS: AZITHROMYCIN 250 MG TAB PO SCH (07:54)
--- NOTE | 2016-09-27 10:18 | Progress Note ---
Subjective Date of Service: Sep 27, 2016. Subjective Pt evaluation today including: conversation w/ patient, conversation w/ family , physical exam, chart review, lab review, review of studies, conversation w/ senior energy consultant, review of inpatient medication list Voiding: no voiding problems high flow oxygen was changed to nasal canal 5 L per minutes from yesterday, continued doing well, has been out of bed to the chair, feel okay, pleasant, conversational, reported still coughing up small amount of fresh blood, and the amount is less Problem List Medical Problems: (1) Acute renal failure Status: Acute (2) Anemia Status: Acute Review of Systems Constitutional: + fatigue, No chills, No fever, No problem reported, No sweats , No weakness, No weight loss Eyes: No diplopia, No discharge, No eye pain, No redness, No worsening of vision ENT: No dental problems, No hearing loss, No nasal symptoms, No sore throat, No tinnitus, No trouble swallowing, No unusual epistaxis Respiratory: + cough, + hemoptysis, No dyspnea at rest, No dyspnea on exertion , No shortness of breath, No sputum, No wheezing Cardiac: No PND, No chest pain, No claudication, No edema, No orthopnea, No palpitations Abdomen: No constipation, No diarrhea, No nausea, No pain, No vomiting Musculoskeletal: No calf pain, No joint pain, No muscle pain, No swelling Female : No abnormal vaginal bleeding, No dysuria, No hematuria, No incontinence, No urinary frequency, No vaginal discharge Neurologic: No balance problems, No memory loss, No numbness/tingling, No paralysis, No vertigo, No weakness Psychiatric: No anhedonism, No anxiety, No depression symptoms, No insomnia, No substance abuse Heme: No abnormal bleeding/bruising, No clotting problems, No night sweats, No swollen lymph nodes Endo: No excessive thirst, No excessive urination, No fatigue Skin: No bleeding, No color change, No itch, No new/changing skin lesions, No rash Objective Vital Signs Date Time Temp Pulse Resp B/P Pulse Ox O2 Delivery O2 Flow Rate FiO2 09/27/16 08:00 Nasal Cannula 5.0 09/27/16 07:32 36.4 74 20 156/58 95 Nasal Cannula 5.0 09/27/16 06:56 67 18 93 Nasal Cannula 5.0 09/27/16 04:00 Nasal Cannula 5.0 09/27/16 03:14 36.4 72 24 128/54 92 Nasal Cannula 6.0 09/27/16 00:01 Nasal Cannula 5.0 09/26/16 23:49 36.4 76 22 123/53 92 Nasal Cannula 5.0 09/26/16 20:10 36.6 73 18 123/56 95 Nasal Cannula 5.0 09/26/16 20:00 Nasal Cannula 5.0 09/26/16 18:56 76 18 96 Nasal Cannula 4.0 09/26/16 16:00 Nasal Cannula 5.0 09/26/16 15:50 36.6 71 20 146/60 96 Nasal Cannula 4.0 09/26/16 15:20 68 18 98 Nasal Cannula 5.0 09/26/16 12:00 Nasal Cannula 5.0 09/26/16 11:43 36.7 76 20 151/62 96 09/26/16 10:55 74 18 92 Nasal Cannula 5.0 Physical Exam General Appearance: WD/WN, no apparent distress, + thin Eyes: normal inspection, PERRL, EOMI, sclerae normal ENT: normal ENT inspection, hearing grossly normal, pharynx normal Neck: supple, no adenopathy, thyroid normal, no JVD, no carotid bruits, trachea midline Respiratory/Chest: chest non-tender, normal breath sounds, no respiratory distress, no accessory muscle use, + decreased breath sounds Cardiovascular: regular rate, rhythm, no edema, no gallop, no JVD, no murmur, + systolic murmur Abdomen: normal bowel sounds, non tender, soft, no organomegaly, no pulsatile mass Extremities: normal range of motion, non-tender, normal inspection, no pedal edema, no calf tenderness, normal capillary refill, pelvis stable 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, no motor/sensory deficits, alert, normal mood/affect, oriented x 3 Skin: normal color, warm/dry, no rash Lymphatic: no adenopathy Laboratory Results Last 24 Hours Test 09/27/16 05:06 White Blood Count 11.97 K/uL Red Blood Count 2.37 M/uL Hemoglobin 7.3 g/dL Hematocrit 21.8 % Mean Corpuscular Volume 92.0 fL Mean Corpuscular Hemoglobin 30.8 pg Mean Corpuscular Hemoglobin Concent 33.5 g/dl Platelet Count 175 K/uL Mean Platelet Volume 9.1 fL Neutrophils (%) (Auto) 83.8 % Lymphocytes (%) (Auto) 6.3 % Monocytes (%) (Auto) 6.3 % Eosinophils (%) (Auto) 0.0 % Basophils (%) (Auto) 0.3 % Neutrophils # (Auto) 10.03 K/uL Lymphocytes # (Auto) 0.75 K/uL Monocytes # (Auto) 0.76 K/uL Eosinophils # (Auto) 0.00 K/uL Basophils # (Auto) 0.03 K/uL RDW Standard Deviation 60.9 fL RDW Coefficient of Variation 18.8 % Immature Granulocyte % (Auto) 3.3 % Immature Granulocyte # (Auto) 0.40 K/uL Nucleated RBC Absolute Count (auto) 0.06 K/uL Nucleated Red Blood Cells % 0.5 % Anisocytosis PRESENT Sodium Level 143 mmol/L Potassium Level 4.0 mmol/L Chloride Level 111 mmol/L Carbon Dioxide Level 25 mmol/L Anion Gap 7.0 mmol/L Blood Urea Nitrogen 57 mg/dl Creatinine 1.60 mg/dl Est Creatinine Clear Calc Drug Dose 21.0 ml/min Estimated GFR () 33.0 Estimated GFR (Non- 28.5 BUN/Creatinine Ratio 35.5 Random Glucose 164 mg/dl Calcium Level 8.2 mg/dl Magnesium Level 2.8 mg/dl Assessment and Plan 86-year-old white female admitted on 09/22/2016 because of Extensive hemoptysis/ acute respiratory failure with hypoxia and acute on chronic kidney failure: stable/slowly improving Hemoptysis: Significant improving Hypoxia, improving , which is evidence by tapered down from high flow O2 nasal cannula, she continue feel good on nasal cannula oxygen Nephrology and pulmonology on the case Differential diagnosis include Diffuse alveolar hemorrhage, infection with associated aortic insufficiency/heart failure, vasculitis 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 Acute on chronic kidney failure stage III, history of acute interstitial nephritis, etiology unknown, Creatinine relative to stable and little bit improved today possible in baseline Acute on chronic anemia possible from blood loss from hemoptysis, other differential diagnosis include hemodialysis or else Improved after 2 unit blood transfusion upon admission, however hemoglobin level dropped to 7.3 today Will transfuse 1 unit today hx of Seizures, Pulmonary embolism not on anticoag b/c bleeding, hx of TIA: Stable and watch HTN Hypothyroism Hyperchol : Continue current medication, stable History of bilat hip arthroplasty hx of CAD/Atrial fibrillation/aortic valve stenosis/CHF history/hypertension: Stable Cardizem 120 mg by mouth twice a day, Discussed with netsuite consultant and nephrology about care plan, Per netsuite consultant , unable to obtain definitive diagnosis from either bronchoscopy with transbronchial biopsies or surgical lung biopsy as the patient is high risk for ventilatory failure and requirement of mechanical ventilation Has been on Steroids: pulse dose steroids has completed, now on solumedrol at 0.5 mg/kg, 60mg iv daily, need to detail discussed with netsuite consultant for tapering Antibiotics: Continue at this time for 7-10 day course Heart failure: Continue aggressive I/O maintenance. Antibiotics: Continue at this time for 7-10 day course, 4/7 days today Heart failure: Continue aggressive I/O maintenance, Lasix as needed GI prophylaxis is covered DVT prophylaxis SCD, no heparin because of contraindicated with the hemoptysis , prognosis is guarded Updated patient's condition with 2 sons in bedside, possible out of bed PTOT, Med surge today Continued [facility] stay due to: abnormal vital signs, multiple IV medications needed Discharge planning: uncertain
--- NOTE | 2016-09-27 10:39 | Nephrology Progress Note ---
Nephrology Progress Note Date of Service Sep 27, 2016. Chief Complaint Follow up evaluation of this patient admitted with hypoxemia and acute on CKD Subjective Ms. Rivera was seen & examined in the ICU this am. She was admitted w/ acute hypoxia, pulmonary infiltrates, profound anemia and acute on CKD. She is breathing comfortably on O2 at 5 L / min NC this morning. She has had no further hemoptysis overnight. The patient presented w/ profound anemia. She has been transfused [address] is c/w pulmonary hemorrhage and possible pneumonia. Vasculitis studies have been drawn. Patient denies overt bleeding overnight Ms. Rivera has CKD w/ baseline creatinine 1.4. She developed ANA PAULA related to anemia and relative hypotension. Patient reports good urine output. Her sweet catheter was removed yesterday. Review of Systems Constitutional: No fever Cardiovascular: No chest pain Respiratory: No dyspnea at rest Abdomen: No pain Extremities: No leg edema A complete review of systems was performed. Pertinent positives are noted above. All other systems are negative. Vital Signs Last 8 Hrs Date Time Temp Pulse Resp B/P Pulse Ox O2 Delivery O2 Flow Rate FiO2 09/27/16 08:00 Nasal Cannula 5.0 09/27/16 07:32 36.4 74 20 156/58 95 Nasal Cannula 5.0 09/27/16 06:56 67 18 93 Nasal Cannula 5.0 09/27/16 04:00 Nasal Cannula 5.0 09/27/16 03:14 36.4 72 24 128/54 92 Nasal Cannula 6.0 I & O 24-Hour Column 09/27/16 08:00 Intake Total 1375 ml Output Total 1250 ml Balance 125 ml Last Recorded Weight Weight (Kilograms): 56.600 Physical Exam General Appearance: no apparent distress Head: atraumatic (temporal muscle wasting) Eyes: PERRL, EOMI Neck: no adenopathy Respiratory/Chest: lungs clear, no respiratory distress, no accessory muscle use Cardiovascular: regular rate, rhythm Abdomen/GI: normal bowel sounds, non tender, soft Extremities/Musculoskelatal: no calf tenderness, no pedal edema Neurologic/Psych: alert, oriented x 3 Family History Heart disease Social History Smokeless Tobacco Use: No Alcohol Use: none Drug Use: none Marital Status: 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 Laboratory Results Past 24 Hours 09/27/16 05:06 Red Blood Count 2.37, Mean Corpuscular Volume 92.0, Mean Corpuscular Hemoglobin 30.8, Mean Corpuscular Hemoglobin Concent 33.5, Mean Platelet Volume 9.1, Neutrophils (%) (Auto) 83.8, Lymphocytes (%) (Auto) 6.3, Monocytes (%) (Auto) 6.3, Eosinophils (%) (Auto) 0.0, Basophils (%) (Auto) 0.3, Neutrophils # (Auto) 10.03, Lymphocytes # (Auto) 0.75, Monocytes # (Auto) 0.76, Eosinophils # (Auto) 0.00, Basophils # (Auto) 0.03 09/27/16 05:06 Test 09/27/16 05:06 White Blood Count 11.97 K/uL (4.8-10.8) Red Blood Count 2.37 M/uL (4.2-5.4) Hemoglobin 7.3 g/dL (12.0-16.0) Hematocrit 21.8 % (37-47) Mean Corpuscular Volume 92.0 fL (80-100) Mean Corpuscular Hemoglobin 30.8 pg (25-34) Mean Corpuscular Hemoglobin Concent 33.5 g/dl (32-36) Platelet Count 175 K/uL (130-400) Mean Platelet Volume 9.1 fL (7.4-10.4) Neutrophils (%) (Auto) 83.8 % Lymphocytes (%) (Auto) 6.3 % Monocytes (%) (Auto) 6.3 % Eosinophils (%) (Auto) 0.0 % Basophils (%) (Auto) 0.3 % Neutrophils # (Auto) 10.03 K/uL (1.4-6.5) Lymphocytes # (Auto) 0.75 K/uL (1.2-3.4) Monocytes # (Auto) 0.76 K/uL (0.11-0.59) Eosinophils # (Auto) 0.00 K/uL (0-0.5) Basophils # (Auto) 0.03 K/uL (0-0.2) RDW Standard Deviation 60.9 fL (36.4-46.3) RDW Coefficient of Variation 18.8 % (11.5-14.5) Immature Granulocyte % (Auto) 3.3 % Immature Granulocyte # (Auto) 0.40 K/uL (0.00-0.02) Nucleated RBC Absolute Count (auto) 0.06 K/uL (0-0) Nucleated Red Blood Cells % 0.5 % Anisocytosis PRESENT Anion Gap 7.0 mmol/L (3-11) Est Creatinine Clear Calc Drug Dose 21.0 ml/min Estimated GFR () 33.0 Estimated GFR (Non- 28.5 BUN/Creatinine Ratio 35.5 (10-20) Calcium Level 8.2 mg/dl (8.5-10.1) Magnesium Level 2.8 mg/dl (1.8-2.4) Allergies Coded Allergies: Doxycycline (Verified Allergy, Severe, RASH, 09/22/16) Trimethoprim (Verified Allergy, Severe, RASH, 09/22/16) Adhesives (Verified Allergy, Unknown, HAD RXN TO [employer]ES, ) Carbamazepine (Verified Allergy, Unknown, 09/22/16) Hydantoins (Verified Allergy, Unknown, 09/22/16) Penicillins (Verified Allergy, Unknown, AMOXIL, 09/22/16) Phenytoin (Verified Allergy, Unknown, 09/22/16) Medications Current Inpatient Medications Medications (Trade) Dose Ordered Sig/Phillip Route Start Time Stop Time Status Last Admin Dose Admin Acetaminophen (Tylenol Tab) 650 mg Q4H PRN PO 09/22/16 19:15 10/22/16 19:14 Zolpidem Tartrate (Ambien Tab) 5 mg HSZ PRN PO 09/22/16 19:15 10/22/16 19:14 Diltiazem HCl (TIAzac CAP) 120 mg BID PO 09/22/16 21:00 10/22/16 20:59 09/27/16 07:53 120 MG Levothyroxine Sodium (Synthroid Tab) 75 mcg DAILYBB PO 09/23/16 06:00 10/23/16 06:59 09/27/16 05:13 75 MCG Ondansetron HCl (Zofran Inj) 4 mg Q6H PRN IV 09/22/16 19:15 10/22/16 19:14 Albuterol/ Ipratropium 3 ml 3 ml QIDR INH 09/23/16 12:00 10/23/16 11:59 09/27/16 06:55 3 ML Cefepime HCl/ Dextrose (Maxipime IV/D5 100ml) 112.5 ml @ 200 mls/hr BID@0200,1400 IV 09/23/16 14:00 09/30/16 13:59 09/27/16 02:28 200 MLS/HR Azithromycin (Zithromax Tab) 500 mg QAM PO 09/23/16 14:00 09/30/16 13:59 09/27/16 07:54 500 MG Codeine Phosphate/ Guaifenesin (Robitussin-AC Sugar Free Syrup) 10 ml Q6H PRN PO 09/23/16 16:00 10/23/16 15:59 09/25/16 15:28 10 ML Sodium Bicarbonate (Sodium Bicarbonate Tab) 650 mg BID PO 09/23/16 21:00 10/23/16 20:59 09/27/16 07:52 650 MG Alprazolam (Xanax Tab) 0.5 mg Q8H PRN PO 09/24/16 19:00 10/24/16 18:59 09/25/16 15:29 0.5 MG Pantoprazole Sodium 40 mg 40 mg BID PO 09/24/16 21:00 10/24/16 20:59 09/27/16 07:52 40 MG Methylprednisolone Sodium Succinate/ Syringe (Solu-Medrol IV/ Syringe) 0.96 ml @ 1.5 mls/min DAILY@0900 IV 09/27/16 09:00 10/27/16 08:59 09/27/16 07:52 1.5 MLS/MIN Impression (1) ANA PAULA (acute kidney injury) (2) Metabolic acidosis (3) Hemoptysis (4) Anemia (5) Aortic Valve Disorder (6) Chronic Kidney Disease, Unspecified (7) Hypertension Nos Anusha is a 86-year-old female with the acute kidney injury, prior history of acute kidney injury requiring dialysis with recovery, chronic kidney disease, prior history of nephrotic syndrome, history of seizure disorder, severe aortic stenosis and history of pulmonary embolism. She was admitted to the hospital with respiratory distress and chest CT on admission was concerning for pneumonia vs pulmonary hemorrhage. This raised the concern for vasculitis with pulmonary renal syndrome. Her baseline creatinine has been 1.2-1.4, prior history of nephrotic syndrome and acute kidney injury requiring HD in 2007 with significant recovery. On admission creatinine was 2.1. She has been nonoliguria. Vasculitis studies have been ordered. Recommendations ACUTE KIDNEY INJURY: -- Kidney function has improved following blood transfusion. Volume status & electrolyte balance are acceptable. Patient remains nonoliguric. Continue to monitor. -- Baseline creatinine has been 1.4 -- Metabolic acidosis has corrected. Will stop NaHCO3 ANEMIA: -- Recommend transfusion to maintain Hgb > 8.0 -- Coagulation parameters remain normal ID: -- Continue broad spectrum antibiotics. Blood cultures are NGTD -- Pulmonology is following. Await further input. Bronchoscopy? RHEUM: -- Await results of vasculitis studies -- Steroid therapy as per pulmonology. Recommend changing to prednisone 60 mg po daily and tapering OTHER: -- Get OOB to chair
[2016-09-27 12:02] LABS: MICROCYTOSIS PRESENT
[2016-09-28] VITALS (10 sets, daily range): BP systolic 137–166; BP diastolic 71–85; PULSE 61–91; TEMP 36.4–36.8; O2SAT 90–100
[2016-09-28] MEDS: CEFEPIME IV 2,000 MG in DEXTROSE 5% 100ML 100 ML IV SCH (01:51)
[2016-09-28] MEDS: LEVOTHYROXINE 75 MCG TAB PO SCH (05:41)
[2016-09-28 06:37] LABS: HEMATOCRIT 28.8 % (37-47); MEAN CORPUSCULAR HGB CONC 33.3 g/dl (32-36); MEAN PLATELET VOLUME 9.3 fL (7.4-10.4); PLATELET COUNT 193 K/uL (130-400); WHITE BLOOD COUNT 18.16 K/uL (4.8-10.8)
[2016-09-28] MEDS: ALBUT/IPRATROP 3MG/0.5MG NEB 3 ML VIAL INH SCH ×4 (07:11→20:03)
[2016-09-28 07:16] LABS: BUN/CREATININE RATIO 30.7 (10-20); CALCIUM 8.5 mg/dl (8.5-10.1); CREATININE 1.6 mg/dl (0.60-1.20); MAGNESIUM 2.8 mg/dl (1.8-2.4); POTASSIUM 4.4 mmol/L (3.5-5.1)
--- NOTE | 2016-09-28 07:48 | PROGRESS NOTE ---
DATE: 09/28/2016 SUBJECTIVE: The patient is comfortable this morning. She is looking forward to getting to walk in the hallway. She denies any further episodes of hemoptysis, is tolerating her medications well. Apparently, she has not had a bowel movement since the , would like something for her GI tract. 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 She denies any aspiration. She does have a history of chronic kidney disease and they have been functioning well. She is generally followed by Dr. Gaitan. OBJECTIVE: VITAL SIGNS: Stable and she is afebrile. Blood pressures have been elevated at 166/72, that may be adequate for her. Oxygen saturation is 95% on 4 liters. I\T\O is 1325 in and 875 out on the , 410 in and 900 out on the . Weight is 56.6 kilograms. It was the same on the . According to nurses' note she did fairly well yesterday. Did receive a unit of packed cells without any trouble, has not had any episodes of hemoptysis. HEENT: Unremarkable. No evidence of any upper airway bleeding. NECK: No neck vein distention or HJR. HEART: Has a regular rate and rhythm with a 3/6 systolic murmur heard at the apex. No gallops are auscultated. LUNGS: Reveal decreased breath sounds bilaterally. Few crackles at the left base posterior, otherwise are clear today. ABDOMEN: Soft, nontender. She has no cyanosis, clubbing or edema. No telangiectasias or evidence of peripheral bleeding noted. LABORATORY DATA: Echocardiogram revealed severe calcific aortic stenosis with moderate mitral regurgitation. Left ventricular ejection fraction of 55%-60% with normal left ventricular function. No evidence of pulmonary hypertension was noted. No AI noted. The CBC is pending for today, hemoglobin 7.3 yesterday. BUN and creatinine of 57 and 1.6 yesterday with CO2 of 25. Her TSH was 0.31. Blood cultures were negative from the . IMPRESSION: 1. Hemoptysis. This may be related to an alveolar hemorrhage. Certainly vasculitis could be a possibility, especially with significant increase in the C-reactive protein. The MICHELLE, ANCA are pending. 2. Bilateral pleural effusions. 3. Severe aortic stenosis. It is certainly conceivable hemoptysis could be related to the aortic stenosis as well. There is no evidence of any overt infection. RECOMMENDATIONS: 1. At this point, I would continue with the methylprednisolone, that perhaps could be tapered to prednisone 40 mg daily with a taper over 2 weeks. 2. At this point, I think the cefepime could be discontinued. I do not find any evidence of overt infection and I think the Zithromax could be finished on the as well. 3. I would suggest rechecking a noncontrast CAT scan in 1 week. 4. Continue with good DVT prophylaxis and we will await the results of the ANCA. Overall, she is quite stable today.
[2016-09-28 08:12] LABS: ANISOCYTOSIS PRESENT; BASO % 0.4 %; BASO ABS # 0.07 K/uL (0-0.2); COMPLETE YES; IG% 7.3 %; LYMPH % 7.5 %; LYMPH ABS # 1.36 K/uL (1.2-3.4); MONO % 5.8 %; POLYCHROMASIA 1+
[2016-09-28] MEDS: METHYLPREDNISOLONE IV 60 MG in SYRINGE 0 ML IV SCH (08:22)
[2016-09-28] MEDS: DILTIAZEM HCL 120 MG EXT REL CAP PO SCH ×2 (08:22→20:36)
[2016-09-28] MEDS: PANTOprazole SOD 40 MG TAB PO SCH ×2 (08:22→20:36)
[2016-09-28] MEDS: AZITHROMYCIN 250 MG TAB PO SCH (08:23)
--- NOTE | 2016-09-28 09:31 | Nephrology Progress Note ---
Nephrology Progress Note Date of Service Sep 28, 2016. Chief Complaint ANA PAULA Subjective No acute events overnight. Dyspnea continues to improve. She reports some mild lightheadedness when she leans forward. She denies any chest pain or palpitations. Activity tolerance remains limited. No fevers or chills. Voiding urine without difficulty. Hemoptysis has improved but she did cough up a large clot this morning. She has experienced some tightness in her chest from that time. Review of Systems A complete review of systems was performed. Pertinent positives are noted above. All other systems are negative. Vital Signs Last 8 Hrs Date Time Temp Pulse Resp B/P Pulse Ox O2 Delivery O2 Flow Rate FiO2 09/28/16 07:48 36.8 61 18 161/85 100 4.0 09/28/16 07:11 81 18 94 Nasal Cannula 4.0 I & O 24-Hour Column 09/28/16 08:00 Intake Total 310 ml Balance 310 ml Last Recorded Weight Weight (Kilograms): 56.600 Physical Exam General Appearance: WD/WN, no apparent distress Head: normocephalic, atraumatic Eyes: normal inspection, sclerae normal ENT: normal ENT inspection, pharynx normal Neck: supple, no JVD Respiratory/Chest: lungs clear, + wheezing Cardiovascular: + pertinent finding (S1, BERNICE ablating the second heart sound) Abdomen/GI: non tender, soft Extremities/Musculoskelatal: normal inspection, + pedal edema Neurologic/Psych: alert, oriented x 3 Family History Heart disease Social History Smokeless Tobacco Use: No Alcohol Use: none Drug Use: none Marital Status: 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 Laboratory Results Past 24 Hours 09/28/16 05:51 Red Blood Count 3.20, Mean Corpuscular Volume 90.0, Mean Corpuscular Hemoglobin 30.0, Mean Corpuscular Hemoglobin Concent 33.3, Mean Platelet Volume 9.3, Neutrophils (%) (Auto) 79.0, Lymphocytes (%) (Auto) 7.5, Monocytes (%) (Auto) 5.8, Eosinophils (%) (Auto) 0.0, Basophils (%) (Auto) 0.4, Neutrophils # (Auto) 14.36, Lymphocytes # (Auto) 1.36, Monocytes # (Auto) 1.05, Eosinophils # (Auto) 0.00, Basophils # (Auto) 0.07 09/28/16 05:51 Test 09/28/16 05:51 White Blood Count 18.16 K/uL (4.8-10.8) Red Blood Count 3.20 M/uL (4.2-5.4) Hemoglobin 9.6 g/dL (12.0-16.0) Hematocrit 28.8 % (37-47) Mean Corpuscular Volume 90.0 fL (80-100) Mean Corpuscular Hemoglobin 30.0 pg (25-34) Mean Corpuscular Hemoglobin Concent 33.3 g/dl (32-36) Platelet Count 193 K/uL (130-400) Mean Platelet Volume 9.3 fL (7.4-10.4) Neutrophils (%) (Auto) 79.0 % Lymphocytes (%) (Auto) 7.5 % Monocytes (%) (Auto) 5.8 % Eosinophils (%) (Auto) 0.0 % Basophils (%) (Auto) 0.4 % Neutrophils # (Auto) 14.36 K/uL (1.4-6.5) Lymphocytes # (Auto) 1.36 K/uL (1.2-3.4) Monocytes # (Auto) 1.05 K/uL (0.11-0.59) Eosinophils # (Auto) 0.00 K/uL (0-0.5) Basophils # (Auto) 0.07 K/uL (0-0.2) RDW Standard Deviation 65.3 fL (36.4-46.3) RDW Coefficient of Variation 20.6 % (11.5-14.5) Immature Granulocyte % (Auto) 7.3 % Immature Granulocyte # (Auto) 1.32 K/uL (0.00-0.02) Nucleated RBC Absolute Count (auto) 0.26 K/uL (0-0) Nucleated Red Blood Cells % 1.4 % Polychromasia 1+ Anisocytosis PRESENT Anion Gap 10.0 mmol/L (3-11) Est Creatinine Clear Calc Drug Dose 21.0 ml/min Estimated GFR () 33.0 Estimated GFR (Non- 28.5 BUN/Creatinine Ratio 30.7 (10-20) Calcium Level 8.5 mg/dl (8.5-10.1) Magnesium Level 2.8 mg/dl (1.8-2.4) Allergies Coded Allergies: Doxycycline (Verified Allergy, Severe, RASH, 09/22/16) Trimethoprim (Verified Allergy, Severe, RASH, 09/22/16) Adhesives (Verified Allergy, Unknown, HAD RXN TO HOLTER MONITOR PATCHES, ) Carbamazepine (Verified Allergy, Unknown, 09/22/16) Hydantoins (Verified Allergy, Unknown, 09/22/16) Penicillins (Verified Allergy, Unknown, AMOXIL, 09/22/16) Phenytoin (Verified Allergy, Unknown, 09/22/16) Medications Current Inpatient Medications Medications (Trade) Dose Ordered Sig/Phillip Route Start Time Stop Time Status Last Admin Dose Admin Acetaminophen (Tylenol Tab) 650 mg Q4H PRN PO 09/22/16 19:15 10/22/16 19:14 Zolpidem Tartrate (Ambien Tab) 5 mg HSZ PRN PO 09/22/16 19:15 10/22/16 19:14 Diltiazem HCl (TIAzac CAP) 120 mg BID PO 09/22/16 21:00 10/22/16 20:59 09/28/16 08:22 120 MG Levothyroxine Sodium (Synthroid Tab) 75 mcg DAILYBB PO 09/23/16 06:00 10/23/16 06:59 09/28/16 05:41 75 MCG Ondansetron HCl (Zofran Inj) 4 mg Q6H PRN IV 09/22/16 19:15 10/22/16 19:14 Albuterol/ Ipratropium 3 ml 3 ml QIDR INH 09/23/16 12:00 10/23/16 11:59 09/28/16 07:11 3 ML Cefepime HCl/ Dextrose (Maxipime IV/D5 100ml) 112.5 ml @ 200 mls/hr BID@0200,1400 IV 09/23/16 14:00 09/30/16 13:59 09/28/16 01:51 200 MLS/HR Azithromycin (Zithromax Tab) 500 mg QAM PO 09/23/16 14:00 09/30/16 13:59 09/28/16 08:23 500 MG Codeine Phosphate/ Guaifenesin (Robitussin-AC Sugar Free Syrup) 10 ml Q6H PRN PO 09/23/16 16:00 10/23/16 15:59 09/25/16 15:28 10 ML Alprazolam (Xanax Tab) 0.5 mg Q8H PRN PO 09/24/16 19:00 10/24/16 18:59 09/25/16 15:29 0.5 MG Pantoprazole Sodium 40 mg 40 mg BID PO 09/24/16 21:00 10/24/16 20:59 09/28/16 08:22 40 MG Methylprednisolone Sodium Succinate/ Syringe (Solu-Medrol IV/ Syringe) 0.96 ml @ 1.5 mls/min DAILY@0900 IV 09/27/16 09:00 10/27/16 08:59 09/28/16 08:22 1.5 MLS/MIN Impression (1) ANA PAULA (acute kidney injury) (2) Metabolic acidosis (3) Hemoptysis (4) Anemia (5) Aortic Valve Disorder (6) Chronic Kidney Disease, Unspecified (7) Hypertension Ezequiel Tavares is a 86-year-old female with the acute kidney injury, prior history of acute kidney injury requiring dialysis with recovery, chronic kidney disease, prior history of nephrotic syndrome, history of seizure disorder, severe aortic stenosis and history of pulmonary embolism. She was admitted to the hospital with respiratory distress and chest CT on admission was concerning for pneumonia vs pulmonary hemorrhage. This raised the concern for vasculitis with pulmonary renal syndrome. Her baseline creatinine has been 1.2-1.4, prior history of nephrotic syndrome and acute kidney injury requiring HD in 2007 with significant recovery. On admission creatinine was 2.1. She has been non oliguric. Serologic vasculitis results are pending. Recommendations ACUTE KIDNEY INJURY: -- Kidney function has improved following blood transfusion. Volume status & electrolyte balance are acceptable. Patient remains nonoliguric. Continue to monitor. -- Baseline creatinine has been 1.4 -- Metabolic acidosis has corrected. ANEMIA: -- Recommend transfusion to maintain Hgb > 8.0 -- Coagulation parameters remain normal ID: -- Continue broad spectrum antibiotics. Blood cultures are NGTD -- Pulmonology is following. RHEUM: -- Await results of vasculitis studies -- Steroid therapy as per pulmonology OTHER: -- PT/OT
--- NOTE | 2016-09-28 11:28 | Palliative Care Consultation ---
Consultation Date of Consultation: Sep 28, 2016. Requesting Physician: Dr. Reed Attending Physician: Dr. Jarvis Reason for Consultation: Goals of care History of Present Illness This 86 year old female patient presented to the ED six days ago with complaints of SOB x3-4 days, chest tightness, and hemoptysis x24 hours. Patient states that for about 1-2 weeks prior to admission she had been feeling increased weakness. She normally is independent and very active, but she noticed she was getting tired easily and more short of breath. The SOB was increasing and her son Travis finally decided to call 911. That same day, patient began coughing up darin blood. Her O2 saturation was 81% on room air in the ED, CT chest showed "1. Streak and motion degraded examination. 2. The heart is markedly enlarged. Diffuse intralobular septal thickening suggests congestive failure. 3. There are diffuse bilateral airspace opacities in a predominantly perihilar distribution. The appearance is nonspecific, and differential considerations include pulmonary edema, pneumonia, pulmonary hemorrhage, and/or ARDS. Clinical correlation will be essential. 4. Small pleural effusions, right larger than left. 5. Nonspecific gas is noted within the partially imaged gallbladder lumen. This could be iatrogenic if there has been a history of sphincterotomy. Correlation with clinical findings and serum bilirubin levels will be required. 6. Numerous prominent mediastinal lymph nodes are of indeterminant significance and may be reactive. 7. Additional findings as above." Patient as evaluated by ICU and it was determined that patient should be transferred to a tertiary care center for treatment of the pulmonary hemorrhage. However, the patient and her son, Travis, made the decision that they didn't want transfer and they also didn't want any heroic measures such as CPR or intubation. Patient admitted to telemetry unit and treated with IV solu-medrol. She has also been evaluated by pulmonology and nephrology for medical management. Dry Wall Applicator believes this hemoptysis could be related to her severe calcific aortic stenosis vs. a vasculitis given her elevated CRP (MICHELLE and ANCA pending); also started patient on antibiotics for possible pneumonia. Nephrology also following, initially started gentle hydration which has been stopped, patient given dose of lasix. Her creatinine was 2.3 on admission (baseline about 1.4) and has improved to 1.60 today. Has a history of renal failure related to Dilantin about 8 years ago, requiring dialysis for about 7 months. Palliative care consulted to establish goals of care. I met with the patient and her son/POA, Travis, in room 262. Patient is alert and oriented, sitting up in wheelchair and states "Pretty good," when asked how she is doing today. She denies any pain but states she is having some burping. She just got done walking the hallway with the physical therapist and did well but does still get a little SOB with ambulation. We discussed the events that have occurred since being in the hospital and also her chronic conditions. Patient and her son seemed to not have a solid understanding of the chronic conditions such as CHF, Aortic stenosis, and chronic kidney disease. We discussed this for quite a while, also talked about goals of care. Patient states that she is normally completely independent at home and s till driving, her son lives about a mile away and frequently checks on her. The most important thing to the patient is maintaining independence and being able to continue to visit her family and friends and having meaningful relationships. Her goal is to be at home. She does state that she would not want heroic measures to keep her alive and that if she were to get to an end-stage medical condition or permanent vegetative state or comatose that she would want to be made comfort measures only. She really does not want to go through what her went through, which was living dependently in a [facility]p for many years after ruptured brain aneurysms. We discussed advance directives at length , patient and her son will think about filling it out while here in the hospital. Patient is adamantly refusing any in-home services at this time, I explained the best I could what home health would provide, she declines. Past Medical/Surgical History Medical History: Severe calcific aortic stenosis Atrial fibrillation CKD CHF, EF 55-60% on this admission CAD HTN Nephrotic syndrome/renal failure- on dialysis for period of time, is no longer Osteoporosis CVA Tietze's disease Surgical History: Bilateral hip replacements Social History Smoking Status: Never Smoker History of Alcohol Use: No Drug Use: none Marital Status: Occupation Status: retired Review of Systems Constitutional: + fatigue, + weakness, No chills, No fever Respiratory: + cough, + dyspnea on exertion, + sputum (very small amount of blood this AM; much improved), No dyspnea at rest Cardiac: No chest pain, No edema, No palpitations Abdomen: + constipation (nurse gave prune juice this morning), No nausea, No pain, No vomiting Female : No problem reported Neurologic: No problem reported Heme: + see HPI Allergies Coded Allergies: Doxycycline (Verified Allergy, Severe, RASH, 09/22/16) Trimethoprim (Verified Allergy, Severe, RASH, 09/22/16) Adhesives (Verified Allergy, Unknown, HAD RXN TO HOLTER MONITOR PATCHES, ) Carbamazepine (Verified Allergy, Unknown, 09/22/16) Hydantoins (Verified Allergy, Unknown, 09/22/16) Penicillins (Verified Allergy, Unknown, AMOXIL, 09/22/16) Phenytoin (Verified Allergy, Unknown, 09/22/16) Medications Current Inpatient Medications Medications (Trade) Dose Ordered Sig/Phillip Route Start Time Stop Time Status Last Admin Dose Admin Acetaminophen (Tylenol Tab) 650 mg Q4H PRN PO 09/22/16 19:15 10/22/16 19:14 Zolpidem Tartrate (Ambien Tab) 5 mg HSZ PRN PO 09/22/16 19:15 10/22/16 19:14 Diltiazem HCl (TIAzac CAP) 120 mg BID PO 09/22/16 21:00 10/22/16 20:59 09/28/16 08:22 120 MG Levothyroxine Sodium (Synthroid Tab) 75 mcg DAILYBB PO 09/23/16 06:00 10/23/16 06:59 09/28/16 05:41 75 MCG Ondansetron HCl (Zofran Inj) 4 mg Q6H PRN IV 09/22/16 19:15 10/22/16 19:14 Albuterol/ Ipratropium 3 ml 3 ml QIDR INH 09/23/16 12:00 10/23/16 11:59 09/28/16 07:11 3 ML Cefepime HCl/ Dextrose (Maxipime IV/D5 100ml) 112.5 ml @ 200 mls/hr BID@0200,1400 IV 09/23/16 14:00 09/30/16 13:59 09/28/16 01:51 200 MLS/HR Azithromycin (Zithromax Tab) 500 mg QAM PO 09/23/16 14:00 09/30/16 13:59 09/28/16 08:23 500 MG Codeine Phosphate/ Guaifenesin (Robitussin-AC Sugar Free Syrup) 10 ml Q6H PRN PO 09/23/16 16:00 10/23/16 15:59 09/25/16 15:28 10 ML Alprazolam (Xanax Tab) 0.5 mg Q8H PRN PO 09/24/16 19:00 10/24/16 18:59 09/25/16 15:29 0.5 MG Pantoprazole Sodium 40 mg 40 mg BID PO 09/24/16 21:00 10/24/16 20:59 09/28/16 08:22 40 MG Methylprednisolone Sodium Succinate/ Syringe (Solu-Medrol IV/ Syringe) 0.96 ml @ 1.5 mls/min DAILY@0900 IV 09/27/16 09:00 10/27/16 08:59 09/28/16 08:22 1.5 MLS/MIN Physical Exam Date Time Temp Pulse Resp B/P Pulse Ox O2 Delivery O2 Flow Rate FiO2 09/28/16 08:30 95 Nasal Cannula 4.0 09/28/16 07:48 36.8 61 18 161/85 100 4.0 09/28/16 07:11 81 18 94 Nasal Cannula 4.0 09/28/16 00:34 36.4 81 18 166/72 95 4.0 09/28/16 00:05 95 Nasal Cannula 4.0 09/27/16 19:48 68 18 95 Nasal Cannula 4.0 09/27/16 18:45 36.6 74 18 152/54 95 4.0 09/27/16 18:25 36.5 75 18 148/65 94 4.0 09/27/16 17:25 36.4 80 18 133/58 94 4.0 09/27/16 16:55 36.4 96 18 135/59 92 4.0 09/27/16 16:25 36.4 83 20 150/65 94 4.0 09/27/16 16:10 36.6 85 18 149/68 93 4.0 09/27/16 16:03 36.4 95 20 145/75 95 Room Air 4.0 09/27/16 16:00 90 Nasal Cannula 3.0 09/27/16 15:51 36.4 95 20 145/75 91 09/27/16 14:12 74 18 96 Nasal Cannula 4.0 09/27/16 11:30 93 Nasal Cannula 5.0 09/27/16 11:15 36.4 74 20 95 5.0 09/27/16 11:05 36.4 76 149/61 86 Room Air 09/27/16 10:55 67 18 100 Nasal Cannula 5.0 General Appearance: no apparent distress, + thin Neck: no JVD, trachea midline Respiratory: lungs clear, no respiratory distress, no accessory muscle use, + pertinent finding (taken off 4LNC, placed on room air and maintained 96% saturation) Cardiovascular: regular rate, rhythm, no edema, + systolic murmur, + normal peripheral pulses Abdomen: normal bowel sounds, non tender, soft Neurologic/Psychiatric: alert, normal mood/affect, oriented x 3 Laboratory Results Last 24 Hours Test 09/28/16 05:51 White Blood Count 18.16 K/uL Red Blood Count 3.20 M/uL Hemoglobin 9.6 g/dL Hematocrit 28.8 % Mean Corpuscular Volume 90.0 fL Mean Corpuscular Hemoglobin 30.0 pg Mean Corpuscular Hemoglobin Concent 33.3 g/dl Platelet Count 193 K/uL Mean Platelet Volume 9.3 fL Neutrophils (%) (Auto) 79.0 % Lymphocytes (%) (Auto) 7.5 % Monocytes (%) (Auto) 5.8 % Eosinophils (%) (Auto) 0.0 % Basophils (%) (Auto) 0.4 % Neutrophils # (Auto) 14.36 K/uL Lymphocytes # (Auto) 1.36 K/uL Monocytes # (Auto) 1.05 K/uL Eosinophils # (Auto) 0.00 K/uL Basophils # (Auto) 0.07 K/uL RDW Standard Deviation 65.3 fL RDW Coefficient of Variation 20.6 % Immature Granulocyte % (Auto) 7.3 % Immature Granulocyte # (Auto) 1.32 K/uL Nucleated RBC Absolute Count (auto) 0.26 K/uL Nucleated Red Blood Cells % 1.4 % Polychromasia 1+ Anisocytosis PRESENT Sodium Level 141 mmol/L Potassium Level 4.4 mmol/L Chloride Level 108 mmol/L Carbon Dioxide Level 23 mmol/L Anion Gap 10.0 mmol/L Blood Urea Nitrogen 49 mg/dl Creatinine 1.60 mg/dl Est Creatinine Clear Calc Drug Dose 21.0 ml/min Estimated GFR () 33.0 Estimated GFR (Non- 28.5 BUN/Creatinine Ratio 30.7 Random Glucose 142 mg/dl Calcium Level 8.5 mg/dl Magnesium Level 2.8 mg/dl Assessment & Plan Palliative Performance Scale: 70 % (reduced ambulation) Problem list: Dyspnea on exertion Hemoptysis- improving Hypoxia Acute on chronic kidney disease stage III Acute on chronic anemia related to blood loss 2/2 hemoptysis Goals of care (Z51.5) Palliative care plan: Discussed with patient, patient's son/POKatarzyna Robles, and Dr. Jarvis. -PT/OT bertha pending, will appreciate recommendations. -Patient's goal is to go home independently. She would consider short term rehab stay if needed, but does not want any in-home services. -DNR/DNI per patient's wishes. -Advance directive discussed- patient and son looking it over. She does have all three of her children named as her POA. -Encouraging patient to be thinking of a plan in the event that another acute episode occurs and/or she declines and does not do well living at home alone. She would consider assisted living at this time but would like to try to go home first. Thank you kindly for this consult. I will follow on an as-needed basis.
--- NOTE | 2016-09-28 18:19 | Progress Note ---
Subjective Date of Service: Sep 28, 2016. Subjective pt has dramatically improved, has now been able to wean off oxygen at rest, is pessimistic about being placed on steroids, pulmonary med is recommending at least two week taper, son is at bedside and feels she will be able to be home with home health and his support Problem List Medical Problems: (1) Acute renal failure Status: Acute (2) Anemia Status: Acute Review of Systems Constitutional: No chills, No fever Respiratory: + cough, + dyspnea on exertion, No shortness of breath Cardiac: No chest pain, No edema Abdomen: No diarrhea, No nausea, No pain, No vomiting Female : No dysuria, No urinary frequency Objective Vital Signs Date Time Temp Pulse Resp B/P Pulse Ox O2 Delivery O2 Flow Rate FiO2 09/28/16 07:48 36.8 61 18 161/85 100 4.0 09/28/16 07:11 81 18 94 Nasal Cannula 4.0 09/28/16 00:34 36.4 81 18 166/72 95 4.0 09/28/16 00:05 95 Nasal Cannula 4.0 09/27/16 19:48 68 18 95 Nasal Cannula 4.0 09/27/16 18:45 36.6 74 18 152/54 95 4.0 09/27/16 18:25 36.5 75 18 148/65 94 4.0 09/27/16 17:25 36.4 80 18 133/58 94 4.0 09/27/16 16:55 36.4 96 18 135/59 92 4.0 09/27/16 16:25 36.4 83 20 150/65 94 4.0 09/27/16 16:10 36.6 85 18 149/68 93 4.0 09/27/16 16:03 36.4 95 20 145/75 95 Room Air 4.0 09/27/16 16:00 90 Nasal Cannula 3.0 09/27/16 15:51 36.4 95 20 145/75 91 09/27/16 14:12 74 18 96 Nasal Cannula 4.0 09/27/16 11:30 93 Nasal Cannula 5.0 09/27/16 11:15 36.4 74 20 95 5.0 09/27/16 11:05 36.4 76 149/61 86 Room Air 09/27/16 10:55 67 18 100 Nasal Cannula 5.0 Physical Exam General Appearance: WD/WN, + mild distress Neck: no adenopathy, no JVD Respiratory/Chest: chest non-tender, + pertinent finding (coarse breath sounds) Cardiovascular: regular rate, rhythm, no murmur Abdomen: normal bowel sounds, non tender, soft Extremities: no pedal edema, no calf tenderness Neurologic/Psychiatric: alert, oriented x 3 Laboratory Results Last 24 Hours Test 09/28/16 05:51 White Blood Count 18.16 K/uL Red Blood Count 3.20 M/uL Hemoglobin 9.6 g/dL Hematocrit 28.8 % Mean Corpuscular Volume 90.0 fL Mean Corpuscular Hemoglobin 30.0 pg Mean Corpuscular Hemoglobin Concent 33.3 g/dl Platelet Count 193 K/uL Mean Platelet Volume 9.3 fL Neutrophils (%) (Auto) 79.0 % Lymphocytes (%) (Auto) 7.5 % Monocytes (%) (Auto) 5.8 % Eosinophils (%) (Auto) 0.0 % Basophils (%) (Auto) 0.4 % Neutrophils # (Auto) 14.36 K/uL Lymphocytes # (Auto) 1.36 K/uL Monocytes # (Auto) 1.05 K/uL Eosinophils # (Auto) 0.00 K/uL Basophils # (Auto) 0.07 K/uL RDW Standard Deviation 65.3 fL RDW Coefficient of Variation 20.6 % Immature Granulocyte % (Auto) 7.3 % Immature Granulocyte # (Auto) 1.32 K/uL Nucleated RBC Absolute Count (auto) 0.26 K/uL Nucleated Red Blood Cells % 1.4 % Polychromasia 1+ Anisocytosis PRESENT Sodium Level 141 mmol/L Potassium Level 4.4 mmol/L Chloride Level 108 mmol/L Carbon Dioxide Level 23 mmol/L Anion Gap 10.0 mmol/L Blood Urea Nitrogen 49 mg/dl Creatinine 1.60 mg/dl Est Creatinine Clear Calc Drug Dose 21.0 ml/min Estimated GFR () 33.0 Estimated GFR (Non- 28.5 BUN/Creatinine Ratio 30.7 Random Glucose 142 mg/dl Calcium Level 8.5 mg/dl Magnesium Level 2.8 mg/dl Assessment and Plan 86-year-old white female admitted on 09/22/2016 acute respiratory failure with hypoxia, hemoptysis Hemoptysis:Hypoxia, improving Nephrology and pulmonology on the case as consideration for vasculitis, as has history of same responsive to steroids, CXR changes cw alveolar hemorrhage, will need steroid taper Acute on chronic kidney failure stage III, history of acute interstitial nephritis, etiology unknown, Acute on chronic anemia including acute blood loss anemia from hemoptysis, s/p 3 U prbc CAD/Atrial fibrillation/aortic valve stenosis/CHF history/hypertension: Stable Cardizem 120 mg by mouth twice a day, Per ash kier boiler , unable to obtain definitive diagnosis from either bronchoscopy with transbronchial biopsies or surgical lung biopsy as the patient is high risk for ventilatory failure Has been on Steroids: pulse dose steroids has completed, now on solumedrol at 0.5 mg/kg, 60mg iv daily, pulmonary feels may stop ceftriaxone and complete axithromycin and transition to po prednisone, will do two step oxygen to asses need for home DVT prophylaxis SCD, no heparin because of contraindicated with the hemoptysis , Continued [facility] stay due to: abnormal vital signs, multiple IV medications needed Discharge planning: uncertain
[2016-09-28 23:36] LABS: MYELOPEROXIDASE AB <1.0 AI (<1.0)
[2016-09-29 00:09] VITALS: BP 145/57; PULSE 75; TEMP 36.9; O2SAT 92
[2016-09-29] MEDS: LEVOTHYROXINE 75 MCG TAB PO SCH (06:01)
[2016-09-29] MEDS: ALBUT/IPRATROP 3MG/0.5MG NEB 3 ML VIAL INH SCH (07:08)
[2016-09-29 07:09] VITALS: PULSE 91; O2SAT 91
--- NOTE | 2016-09-29 07:30 | PROGRESS NOTE ---
DATE: 09/29/2016 SUBJECTIVE: The patient is markedly improved. She has not had any episodes of hemoptysis. She denies any chest pain. She has been ambulating in her room and states she has considerably improved. She has not had any discomfort. She did have 3 units of packed cells transfused. She states she feels 100% better than she did at the time of admission. OBJECTIVE: VITAL SIGNS: Stable. She is afebrile, blood pressure is 145/57 and oxygen saturation 92% on room air which is a marked improvement. Her weight was 56.6 kgs on the ; that is about the same as compared to the . Nurses' notes were reviewed. HEENT: Unremarkable. No evidence of upper airway bleeding. No adenopathy is noted. HEART: Regular rate and rhythm. No murmurs are heard. LUNGS: Reveal very minimal crackles at the left base posterior along the posterior axillary line. No fremitus or dullness to percussion. The remainder of the left lung and the entire right lung are clear. ABDOMEN: Soft and nontender. EXTREMITIES: She has no cyanosis, clubbing or edema. There is no evidence of DVT by exam. LABORATORY DATA: The anti-proteinase 3, anti-myeloperoxidase, ANCA and glomerular basement membrane antibody are all negative. PRP is stable with a BUN of 49, creatinine of 1.6 and magnesium was 2.8. Hemoglobin yesterday was 9.6, hematocrit 28.8% and white count 18.1. IMPRESSION: Pulmonary hemorrhage. This may be an alveolar hemorrhage associated with some acute on chronic kidney disease. So far, all the cultures are unremarkable. She is markedly improved. RECOMMENDATIONS: 1. I would continue with the prednisone taper over about 3-4 weeks. 2. Follow up with Dr. La as an outpatient or Jesús Mcdainels PA-C in about one week. 3. Good blood pressure control. She has severe calcific aortic stenosis and it is certainly conceivable that could be related to the pulmonary hemorrhage as well. Overall, she is stable. [facility]
[2016-09-29 08:09] VITALS: BP 152/66; PULSE 78; TEMP 36.6; O2SAT 93
[2016-09-29] MEDS: AZITHROMYCIN 250 MG TAB PO SCH (08:26)
[2016-09-29] MEDS: PANTOprazole SOD 40 MG TAB PO SCH (08:27)
[2016-09-29] MEDS: DILTIAZEM HCL 120 MG EXT REL CAP PO SCH (08:27)
[2016-09-29] MEDS ORDERED: PRD20 PO (08:29)
--- NOTE | 2016-09-29 08:30 | Discharge Instructions ---
Discharge Instructions Date of Service Sep 29, 2016. Admission Reason for Admission: Anemia, Hemoptysis Discharge Discharge Diagnosis / Problem: alveolar hemorrage, pneumonia ruled out Discharge Goals Goal(s): Diagnostic testing, Therapeutic intervention Activity Recommendations Activity Limitations: resume your previous activity . Current Hospital Diet Patient's current hospital diet: Regular Diet Discharge Diet Recommended Diet: Regular Diet Pending Studies Studies pending at discharge: no Medical Emergencies . Who to Call and When: Medical Emergencies: If at any time you feel your situation is an emergency, please call 911 immediately. . Non-Emergent Contact Non-Emergency issues call your: Primary Care Provider Call Non-Emergent contact if: temperature is above 101, your pain is unusual for you . . "Provider Documentation" section prepared by Pool Jarvis. VTE Core Measure Inpt VTE Proph given/why not?: Contraindicated
[2016-09-29 09:44] LABS: BUN/CREATININE RATIO 31.8 (10-20); CREATININE 1.4 mg/dl (0.60-1.20); PHOSPHORUS 2.9 mg/dl (2.5-4.9); POTASSIUM 3.9 mmol/L (3.5-5.1)
--- NOTE | 2016-09-29 10:33 | Nephrology Progress Note ---
Nephrology Progress Note Date of Service Sep 29, 2016. Chief Complaint ANA PAULA Subjective No acute events overnight. No fevers or chills. Ambulating in soto without difficulty. Denies significantly dyspnea. No additional hemoptysis. Seen and evaluated today with her son at the bedside. Voiding urine without difficulty. Review of Systems A complete review of systems was performed. Pertinent positives are noted above. All other systems are negative. Vital Signs Last 8 Hrs Date Time Temp Pulse Resp B/P Pulse Ox O2 Delivery O2 Flow Rate FiO2 09/29/16 08:09 36.6 78 16 152/66 93 2.0 09/29/16 07:09 91 18 91 Room Air Last Recorded Weight Weight (Kilograms): 56.600 Physical Exam General Appearance: WD/WN, no apparent distress Head: normocephalic, atraumatic Eyes: normal inspection, sclerae normal ENT: normal ENT inspection, pharynx normal Neck: supple, no JVD Respiratory/Chest: lungs clear, no respiratory distress, no accessory muscle use Cardiovascular: regular rate, rhythm, no murmur Abdomen/GI: non tender, soft Extremities/Musculoskelatal: normal inspection, no pedal edema Neurologic/Psych: alert, oriented x 3 Family History Heart disease Social History Smokeless Tobacco Use: No Alcohol Use: none Drug Use: none Marital Status: 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 Laboratory Results Past 24 Hours 09/29/16 08:55 Test 09/29/16 08:55 Anion Gap 12.0 mmol/L (3-11) Est Creatinine Clear Calc Drug Dose 24.0 ml/min Estimated GFR () 38.8 Estimated GFR (Non- 33.5 BUN/Creatinine Ratio 31.8 (10-20) Calcium Level 9.0 mg/dl (8.5-10.1) Phosphorus Level 2.9 mg/dl (2.5-4.9) Albumin 3.2 gm/dl (3.4-5.0) Allergies Coded Allergies: Doxycycline (Verified Allergy, Severe, RASH, 09/22/16) Trimethoprim (Verified Allergy, Severe, RASH, 09/22/16) Adhesives (Verified Allergy, Unknown, HAD RXN TO HOLTER MONITOR PATCHES, ) Carbamazepine (Verified Allergy, Unknown, 09/22/16) Hydantoins (Verified Allergy, Unknown, 09/22/16) Penicillins (Verified Allergy, Unknown, AMOXIL, 09/22/16) Phenytoin (Verified Allergy, Unknown, 09/22/16) Medications Current Inpatient Medications Medications (Trade) Dose Ordered Sig/Phillip Route Start Time Stop Time Status Last Admin Dose Admin Acetaminophen (Tylenol Tab) 650 mg Q4H PRN PO 09/22/16 19:15 10/22/16 19:14 Zolpidem Tartrate (Ambien Tab) 5 mg HSZ PRN PO 09/22/16 19:15 10/22/16 19:14 Diltiazem HCl (TIAzac CAP) 120 mg BID PO 09/22/16 21:00 10/22/16 20:59 09/29/16 08:27 120 MG Levothyroxine Sodium (Synthroid Tab) 75 mcg DAILYBB PO 09/23/16 06:00 10/23/16 06:59 09/29/16 06:01 75 MCG Ondansetron HCl (Zofran Inj) 4 mg Q6H PRN IV 09/22/16 19:15 10/22/16 19:14 Albuterol/ Ipratropium (Duoneb) 3 ml QIDR INH 09/23/16 12:00 10/23/16 11:59 09/29/16 07:08 3 ML Azithromycin (Zithromax Tab) 500 mg QAM PO 09/23/16 14:00 09/30/16 13:59 09/29/16 08:26 500 MG Codeine Phosphate/ Guaifenesin (Robitussin-AC Sugar Free Syrup) 10 ml Q6H PRN PO 09/23/16 16:00 10/23/16 15:59 09/25/16 15:28 10 ML Alprazolam (Xanax Tab) 0.5 mg Q8H PRN PO 09/24/16 19:00 10/24/16 18:59 09/25/16 15:29 0.5 MG Pantoprazole Sodium (Protonix Tab) 40 mg BID PO 09/24/16 21:00 10/24/16 20:59 09/29/16 08:27 40 MG Prednisone (PredniSONE TAB) 40 mg DAILY PO 09/28/16 12:15 10/28/16 12:14 09/29/16 08:27 40 MG Impression (1) ANA PAULA (acute kidney injury) (2) Metabolic acidosis (3) Hemoptysis (4) Anemia (5) Aortic Valve Disorder (6) Chronic Kidney Disease, Unspecified (7) Hypertension Nos Anusha is a 86-year-old female with the acute kidney injury, prior history of acute kidney injury requiring dialysis with recovery, chronic kidney disease, prior history of nephrotic syndrome, history of seizure disorder, severe aortic stenosis and history of pulmonary embolism. She was admitted to the hospital with respiratory distress and chest CT on admission was concerning for pneumonia vs pulmonary hemorrhage. This raised the concern for vasculitis with pulmonary renal syndrome. Her baseline creatinine has been 1.2-1.4, prior history of nephrotic syndrome and acute kidney injury requiring HD in 2007 with significant recovery. On admission creatinine was 2.1. She has been non oliguric. Serologic vasculitis results are pending. Recommendations ACUTE KIDNEY INJURY: -- Kidney function has improved following blood transfusion. Volume status & electrolyte balance are acceptable. Patient remains nonoliguric. Kidney function at baseline. -- Baseline creatinine has been 1.4 -- Metabolic acidosis has corrected. -- Follow up with Dr. Gaitan within 2 weeks of discharge (Patient asked to call [phone] to schedule) ANEMIA: -- Recommend transfusion as needed to maintain Hgb > 8.0 ID: -- Antibiotics per pulmonology. Blood cultures are NGTD RHEUM: -- ANCA and GBM ab negative -- Steroid therapy as per pulmonology OTHER: -- PT/OT
[2016-09-29] MEDS ORDERED: OXGN (12:23)
[2016-09-29 12:30] VITALS: BP 152/66; PULSE 78; TEMP 36.6; O2SAT 93
--- NOTE | 2016-09-29 18:28 | Discharge Summary ---
Discharge Summary Date of Service Sep 29, 2016. Discharge Summary Admission Date: Sep 22, 2016 at 19:17 Discharge Date: Sep 29, 2016 Discharge Disposition: Home with services Principal Diagnosis: acute hypoxic respiratory failure, possibe alveolar hemorrhage Immunizations: Have You Had Influenza Vaccine: Yes History of Tetanus Vaccine?: Unknown History of Pneumococcal: Yes History of Hepatitis B Vaccine: Unknown Consultations: Dr Wen Medication Reconciliation New Medications: Oxygen (Oxygen) Gas 2 LITERS NA PRN for pt needs it with amblation for 365 Days, #1 Prednisone (Prednisone) 20 Mg Tab 40 MG PO DAILY, #90 TAB Continued Medications: Cholecalciferol (Vitamin D3) 1,000 Unit Tab 1 TAB PO DAILY for 30 Days, #30 TAB 5 Refills Cyanocobalamin (Vitamin B-12) 1,000 Mcg Tab 1000 MCG PO DAILY, TAB Diltiazem Hcl Ext Rel (Tiazac) 240 Mg Capcr 240 MG PO DAILY, CAP Docusate Sodium (Colace) 100 Mg Cap 1 CAP PO BID for 15 Days, #30 CAP Levothyroxine Sodium (Synthroid) 75 Mcg Tab 75 MCG PO DAILY, TAB Pantoprazole (Protonix) 20 Mg Tab 20 MG PO BID, #30 TAB Discontinued Medications: Lisinopril (Zestril) 20 Mg Tab 20 MG PO Q12HR, 0 Refills Pravastatin (Pravachol ) 20 Mg Tab 20 MG PO HS, TAB Discharge Exam Review of Systems: Constitutional: No chills, No fever Respiratory: + cough, + dyspnea on exertion, No shortness of breath, No sputum Cardiovascular: No chest pain, No edema, No orthopnea Abdomen: No diarrhea, No nausea, No pain Genitourinary - Male: No dysuria, No hematuria Psychiatric: + anxiety, + depression symptoms, No anhedonism Physical Exam: General Appearance: WD/WN, no apparent distress Neck: supple, no JVD Respiratory/Chest: + decreased breath sounds, + accessory muscle use, + rhonchi Cardiovascular: regular rate, rhythm, no murmur Abdomen / GI: normal bowel sounds, non tender, soft Extremities: no pedal edema, normal range of motion Hospital Course 86-year-old white female admitted on 09/22/2016 acute respiratory failure with hypoxia, hemoptysis Hemoptysis:Hypoxia, improving but still requiring oxygen, will have at home Nephrology and pulmonology on the case as consideration for vasculitis, as has history of same responsive to steroids, CXR changes cw alveolar hemorrhage, will need steroid taper and follow up with dr wen and dr novak Acute on chronic kidney failure stage III, history of acute interstitial nephritis, etiology unknown, Acute on chronic anemia including acute blood loss anemia from hemoptysis, s/p 3 U prbc CAD/Atrial fibrillation/aortic valve stenosis/CHF history/hypertension: Stable Cardizem 120 mg by mouth twice a day, Per throat cutter , unable to obtain definitive diagnosis from either bronchoscopy with transbronchial biopsies or surgical lung biopsy as the patient is high risk for ventilatory failure Has been on Steroids: pulse dose steroids has completed, transition to po prednisone two step confirms oxygen need at home Total Time Spent: Greater than 30 minutes This includes examination of the patient, discharge planning, medication reconciliation, and communication with other providers. Discharge Instructions Please refer to the electronic Patient Visit Report (Discharge Instructions) for additional information.
== END 2016-09-29 13:25 | disposition home health service (06) | DRG 189 ==
LOC: ENRESERVTM → ENRESERVDT → EDBD 13:56 → C.EDB 13:59 → C.2E 19:17 → C.MS2W 09-27 11:27
PROVIDERS: ADMIT Hospitalist; ATTEND Internal Medicine
DX: J96.01 Acute respiratory failure with hypoxia (principal); N17.9 Acute kidney failure, unspecified; E87.2 Acidosis; D62 Acute posthemorrhagic anemia; I13.0 Hypertensive heart and chronic kidney disease with heart failure and stage 1 through stage 4 chronic kidney disease, or unspecified chronic kidney disease; N04.9 Nephrotic syndrome with unspecified morphologic changes; R04.2 Hemoptysis; E03.9 Hypothyroidism, unspecified; Z86.711 Personal history of pulmonary embolism; E78.00 Pure hypercholesterolemia, unspecified; N18.3 Chronic kidney disease, stage 3 (moderate); Z86.73 Personal history of transient ischemic attack (TIA), and cerebral infarction without residual deficits; I35.0 Nonrheumatic aortic (valve) stenosis; K44.9 Diaphragmatic hernia without obstruction or gangrene; Z66 Do not resuscitate; I48.2 Chronic atrial fibrillation; I50.9 Heart failure, unspecified; M81.0 Age-related osteoporosis without current pathological fracture; M94.0 Chondrocostal junction syndrome [Tietze]; I25.10 Atherosclerotic heart disease of native coronary artery without angina pectoris; K21.9 Gastro-esophageal reflux disease without esophagitis; G40.909 Epilepsy, unspecified, not intractable, without status epilepticus; I35.1 Nonrheumatic aortic (valve) insufficiency; J84.10 Pulmonary fibrosis, unspecified

== ENCOUNTER 2016-10-06 15:39 | Inpatient (IN) | payer BC, OTHER ==
[~2016-10-06] VITALS: Ht 162.6 cm; Wt 52.5 kg
[~2016-10-06 15:39] MED LIST changes: -BCTCR/30 EXT; -CLC100 PO; -FURO-85 PO; -LISI-725 PO; -MCRK20 PO; -NYSS/ PO; -PRAV20TA PO; -PRD/1 PO; -PRED10TA PO; -PSYL1.7W PO
[2016-10-06 15:45] VITALS: PULSE 73; O2SAT 94
--- NOTE | 2016-10-06 16:12 | DIAGNOSTIC IMAGING REPORT ---
CHEST ONE VIEW PORTABLE CLINICAL HISTORY: EVALUATE RESPIRATORY DISTRESS. DYSPNEA dyspnea COMPARISON STUDY: 09/22/2016 FINDINGS: Findings of pulmonary edema slightly progressive as compared to the prior study. Diaphragms smooth. Very slight chronic blunting right lateral costophrenic angle. IMPRESSION: Pulmonary edema slightly progressive from the prior exam. Electronically signed by: Kirill Escoto M.D. 10/06/2016 4:11 PM Dictated Date/Time: 10/06/2016 4:10 PM
[2016-10-06 16:39] LABS: VEN BLD GAS O2 SATURATION < 60.0 %; VEN BLOOD GAS BASE EXCESS -2.3 mmol/L; VENOUS BLOOD GAS PCO2 37 mmHg (38.0-50.0); VENOUS BLOOD GAS PO2 28 mmHg
[2016-10-06 16:51] LABS: BASO % 0.1 %; BASO ABS # 0.01 K/uL (0-0.2); HEMATOCRIT 22.9 % (37-47); IG% 1.2 %; LYMPH % 6.1 %; MEAN CELL VOLUME 96.2 fL (80-100); MEAN CORPUSCULAR HEMOGLOBIN 33.2 pg (25-34); MEAN CORPUSCULAR HGB CONC 34.5 g/dl (32-36); MEAN PLATELET VOLUME 8.7 fL (7.4-10.4); MONO % 0.4 %; NEUT % 92.2 %; PLATELET COUNT 183 K/uL (130-400); RED BLOOD COUNT 2.38 M/uL (4.2-5.4); WHITE BLOOD COUNT 19.55 K/uL (4.8-10.8)
[2016-10-06] MEDS ORDERED: PRAV20TA PO (16:58)
[2016-10-06] MEDS ORDERED: LISI-725 PO (16:58)
[2016-10-06 17:00] LABS: PARTIAL THROMBOPLASTIN RATIO 0.8; PROTHROMBIN TIME (PATIENT) 10.5 SECONDS (9.0-12.0)
[2016-10-06] MEDS ORDERED: OPTIRAY 320 IV PRN (17:00)
[2016-10-06 17:09] LABS: BUN/CREATININE RATIO 25.4 (10-20); CALCIUM 7.9 mg/dl (8.5-10.1); CREATININE 2.1 mg/dl (0.60-1.20); POTASSIUM 4.5 mmol/L (3.5-5.1)
[2016-10-06 17:16] LABS: URINE APPEARANCE CLOUDY (CLEAR); URINE BILIRUBIN NEG (NEG); URINE COLOR DK YELLOW; URINE EPITHELIAL CELL AUTO >30 /lpf (0-5); URINE NITRITE NEG (NEG); URINE SPECIFIC GRAVITY 1.019 (1.000-1.030); UROBILINOGEN NEG (NEG)
[2016-10-06 17:17] LABS: ALB/GLOB RATIO 1.3 (0.9-2)
[2016-10-06 17:18] LABS: MANUAL MICROSCOPIC REQUIRED? NO; REVIEW REQ? NO
[2016-10-06 17:25] LABS: ANISOCYTOSIS PRESENT; COMPLETE YES; POLYCHROMASIA 1+
--- NOTE | 2016-10-06 17:42 | DIAGNOSTIC IMAGING REPORT ---
CT SCAN OF THE CHEST WITHOUT IV CONTRAST CLINICAL HISTORY: Dyspnea. Hemoptysis. COMPARISON STUDY: Chest CT dated 09/22/2016 and 06/13/2014. Chest x-ray dated 09/22/2016. TECHNIQUE: CT scan of the thorax was performed from the thoracic inlet to the upper abdomen. Images are reviewed in the axial, sagittal, and coronal planes. IV contrast was not administered for this examination. The examination is degraded by streak artifact from the patient's right arm which could not be elevated above the chest. The examination is also degraded by motion artifact. CT DOSE: 211.46 mGy.cm FINDINGS: Thyroid: Atrophic. Thoracic aorta: There is advanced atherosclerotic calcification of the thoracic aorta, which is normal in caliber and demonstrates standard 3-vessel arch anatomy. Heart: The heart is enlarged and without pericardial effusion. The coronary arteries are densely calcified. There is diminished attenuation of the cardiac blood pool as compared to the myocardium suggesting anemia. The main pulmonary arteries are dilated suggesting pulmonary artery hypertension. Lungs and pleural spaces: Evaluation of the lung parenchyma is degraded by expiratory motion artifact. Pleural effusions have almost completely resolved from previous. Diffuse intralobular septal thickening has improved. Diffuse/multifocal bilateral airspace opacification has modestly worsened from 09/22/2016. The trachea and central airways appear clear. Mediastinum: There are numerous prominent mediastinal lymph nodes which measure up to 9 mm in short axis. Calcified mediastinal nodes are observed. Susy: Not well assessed without IV contrast. There are calcified right hilar nodes. Axillae: There is no axillary lymphadenopathy. Upper abdomen: A small hiatal hernia is identified. Numerous calcified gallstones are identified. There are numerous calcified splenic granulomas. Calcified hepatic granulomas are also seen. The partially imaged left kidney demonstrates marked cortical atrophy. Skeletal structures: The skeletal structures are osteopenic. There is an age indeterminant superior endplate compression deformity of T11. Large hemangiomas are seen in the bodies of T1, T2, and L1. No lytic or blastic bony lesions are seen. Advanced arthritic change is noted in the shoulders. IMPRESSION: 1. Streak and motion degraded examination. 2. The heart is enlarged. Intralobular septal thickening has somewhat improved from previous, possibly representing improvement in congestive failure. 3. Diffuse bilateral airspace opacities have modestly worsened from previous. The appearance is nonspecific, and differential considerations remain pulmonary edema, pneumonia, pulmonary hemorrhage, and/or ARDS. Clinical correlation will be required. 4. Small pleural effusions have almost completely resolved from 09/22/2016. 5. Cholelithiasis. 6. Numerous prominent mediastinal lymph nodes are indeterminant and may be reactive. 7. Additional findings as above. Electronically signed by: Yimi Lo M.D. 10/06/2016 5:41 PM Dictated Date/Time: 10/06/2016 5:35 PM
[2016-10-06] MEDS ORDERED: ACETAMINOPHEN 325 MG TAB PO PRN (20:00)
[2016-10-06] MEDS ORDERED: ACETAMINOPHEN IV 100 ML IV PRN (20:15)
[2016-10-06] MEDS ORDERED: ONDANSETRON INJ 2 MG/ML 2 ML VIAL IV PRN (20:15)
[2016-10-06] MEDS ORDERED: VANCOMYCIN INJ 1,400 MG in SODIUM CHLORIDE 0.9% 500ML 500 ML IV STA (20:26)
[2016-10-06] MEDS ORDERED: IPRATROPIUM BROMIDE NEB SOLN 0.02% 2.5 ML VIAL INH PRN (20:30)
[2016-10-06] MEDS ORDERED: LEVALBUTEROL 1.25MG/0.5ML NEB INH PRN (20:30)
[2016-10-06] MEDS ORDERED: ALBUMIN 25% 50 ML with FUROSEMIDE INJ 40 MG IV ONE ×2 (20:45)
[2016-10-06] MEDS ORDERED: VANCOMYCIN CONSULT ACTIVE PRN (20:45)
[2016-10-06] MEDS ORDERED: LEVALBUTEROL/IPRATROPIUM NEB INH SCH (21:00)
[2016-10-06] MEDS ORDERED: PANTOprazole SOD 40 MG TAB PO SCH (21:00)
[2016-10-06] MEDS ORDERED: ERTAPENEM IV 1 GM in SODIUM CHLOR 0.9% AD-VAN 50ML 50 ML IV SCH (21:00)
--- NOTE | 2016-10-06 21:19 | DIAGNOSTIC IMAGING REPORT ---
ULTRASOUND BILATERAL LOWER EXTREMITY VENOUS CLINICAL HISTORY: Dyspnea. Cough. Clinical concern for deep venous thrombosis. COMPARISON STUDY: Bilateral lower extremity venous ultrasound dated 09/23/2016. TECHNIQUE: Real-time, grayscale, and color Doppler sonography of the deep veins of the right and left lower extremity was performed from the inguinal crease to the calf. Compression and augmentation were utilized. FINDINGS: There is no sonographic evidence of deep venous thrombosis identified in the right or left lower extremity. The common femoral, superficial femoral, and popliteal veins are patent and normally compressible bilaterally. The greater saphenous vein and the profunda femoris vein at the junction with the common femoral vein are clear in both legs. The visualized calf veins are patent bilaterally. A minimally complex popliteal cyst on the left measures 2.7 x 1.1 x 0.7 cm. Superficial venous thrombus seen within the left popliteal fossa on 09/23/2016 is no longer visualized. IMPRESSION: 1. There is no sonographic evidence of deep venous thrombosis identified in the right or left lower extremity. 2. Small left popliteal cyst. Electronically signed by: Yimi Lo M.D. 10/06/2016 9:18 PM Dictated Date/Time: 10/06/2016 9:17 PM
[2016-10-06] MEDS: LEVALBUTEROL 1.25MG/0.5ML NEB INH SCH (21:25)
[2016-10-06] MEDS: IPRATROPIUM BROMIDE NEB SOLN 0.02% 2.5 ML VIAL INH SCH (21:25)
[2016-10-06] MEDS: METHYLPREDNISOLONE IV 60 MG in SYRINGE 0 ML IV SCH (21:25)
[2016-10-06] MEDS: PRAVASTATIN SOD 20 MG TAB PO SCH (21:39)
--- NOTE | 2016-10-06 21:50 | EMERGENCY ROOM VISIT NOTE ---
History Report prepared by Ramya: Nolan Jeffery Under the Supervision of: Dr. Rohit Arauz D.O. First contact with patient: 15:44 Chief Complaint: RESPIRATORY DISTRESS Stated Complaint: RESP. DISTRESS Nursing Triage Summary: pt had admission last week sent home on home oxygen of 2 litters today went to pcp for check up, family reports sats were only 80% and sent home as day progresses became more sob sats in 50s, pt lethargic and hypoxic on ems arrival pt placed on ntg drip and cpap pt has improved rales throughout wet cough nonpitting ankle edema History of Present Illness The patient is a 86 year old female who presents to the Emergency Room with complaints of persistent respiratory distress beginning earlier today. Per EMS, her oxygen saturation was in the 80s and she had shortness of breath, productive cough, and rales throughout. EMS put her on CPAP and a nitro drip. She has a history of CHF. The patient was admitted about 1.5 weeks ago as she was short of breath and coughing up blood. She was discharged 7 days ago with a diagnosis of acute respiratory failure, hemoptysis, and questionable vasculitis was considered. She also had a bronchoscopy at this time. Per the patient's son, she was a Dr. Cardenas's office today for a follow-up appointment. A nurse at the office reported her oxygen saturation was in the 80s. The son put her on 2 liters of supplemental oxygen, which she is normally on, after taking her home from the appointment. He later summoned EMS. She is currently on steroids but not antibiotics. The son adds that the patient has aortic stenosis. The patient had a duplex of her lower extremities on September 23 which was negative for DVTs, though she had similar symptoms at that time. She also had a CT of the chest. The patient notes feeling short of breath today, and adds she had chest tightness today. She reports coughing up some blood this morning. She denies having any abdominal pain or leg swelling. Source of History: patient, family, nursing staff Onset: earlier today Position: other (lungs) Symptom Intensity: oxygen saturation in the 80s Quality: other (respiratory distress) Timing: other (persistent) Associated Symptoms: + SOB, + chest pain (tightness), + cough (with blood), No abdominal pain Note: The patient denies leg swelling. Review of Systems See HPI for pertinent positives & negatives. A total of 10 systems reviewed and were otherwise negative. 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 Family History Heart disease Social History Smoking Status: Never Smoker Drug Use: none Marital Status: Housing Status: lives alone Occupation Status: retired Current/Historical Medications Scheduled Cholecalciferol (Vitamin D3), 1 TAB PO DAILY Cyanocobalamin (Vitamin B-12), 1,000 MCG PO DAILY Diltiazem Hcl Ext Rel (Tiazac), 240 MG PO DAILY Levothyroxine Sodium (Synthroid), 75 MCG PO DAILY Lisinopril (Zestril), 20 MG PO DAILY Oxygen (Oxygen), 2 LITERS NA PRN Pantoprazole (Protonix), 20 MG PO BID Pravastatin (Pravachol ), 20 MG PO HS Prednisone (Prednisone), 40 MG PO DAILY Allergies Coded Allergies: Doxycycline (Verified Allergy, Severe, RASH, 09/22/16) Trimethoprim (Verified Allergy, Severe, RASH, 09/22/16) Adhesives (Verified Allergy, Unknown, HAD RXN TO [employer], ) Atorvastatin (Unverified Allergy, Unknown, UNKNOWN, 10/06/16) Carbamazepine (Verified Allergy, Unknown, 10/06/16) Hydantoins (Verified Allergy, Unknown, 09/22/16) Levofloxacin (Unverified Allergy, Unknown, UNKNOWN, 10/06/16) Penicillins (Verified Allergy, Unknown, AMOXIL, 10/06/16) Phenytoin (Verified Allergy, Unknown, 10/06/16) Physical Exam Vital Signs Date Time Temp Pulse Resp B/P Pulse Ox O2 Delivery O2 Flow Rate FiO2 10/06/16 19:50 62 97 10/06/16 19:45 134/67 10/06/16 19:30 144/65 10/06/16 19:25 69 97 10/06/16 19:15 140/63 10/06/16 19:00 135/60 10/06/16 18:55 71 97 10/06/16 18:45 146/66 10/06/16 18:34 36.5 66 20 141/61 97 BiPAP 40 10/06/16 18:30 141/61 10/06/16 18:25 62 98 10/06/16 18:15 134/61 10/06/16 18:00 146/66 10/06/16 17:55 64 99 10/06/16 17:45 135/59 10/06/16 17:20 70 97 10/06/16 17:15 135/78 10/06/16 17:11 35.5 68 24 149/89 93 BiPAP 40 10/06/16 17:01 149/89 10/06/16 16:50 63 96 10/06/16 16:45 134/64 10/06/16 16:30 146/79 10/06/16 16:27 24 10/06/16 16:21 CPAP 40 10/06/16 16:20 66 91 10/06/16 16:15 72 10/06/16 16:15 144/72 10/06/16 16:15 144/72 10/06/16 16:09 68 91 10/06/16 16:09 68 91 10/06/16 15:57 BiPAP 10/06/16 15:48 173/70 10/06/16 15:48 173/70 10/06/16 15:45 92 CPAP 10/06/16 15:45 73 94 40 10/06/16 15:45 70 173/70 95 CPAP 10/06/16 15:45 73 30 94 CPAP 40 Physical Exam GENERAL: Sitting up in bed, ill appearing, dyspneic, significant distress EYE EXAM: normal conjunctiva OROPHARYNX: no exudate, no erythema, lips, buccal mucosa, and tongue normal and mucous membranes are dry NECK: supple, no nuchal rigidity, no adenopathy, non-tender, no JVD LUNGS: Rhonchi at the bases bilaterally. Normal chest wall mechanics HEART: Systolic murmurs, S1 normal and S2 normal ABDOMEN: abdomen soft, non-tender, normo-active bowel sounds, no masses, no rebound or guarding. BACK: Back is symmetrical on inspection and there is no deformity, no midline tenderness, no CVA tenderness. SKIN: no rashes and no bruising UPPER EXTREMITIES: upper extremities are grossly normal. LOWER EXTREMITIES: No pitting edema. Calves equal bilaterally. NEURO EXAM: Normal sensorium, cranial nerves II-XII grossly intact, normal speech, no gross weakness of arms, no gross weakness of legs. Gross sensation intact. Medical Decision & Procedures ER Provider Diagnostic Interpretation: Radiology results have been interpreted by the radiologist and reviewed by me. CHEST ONE VIEW PORTABLE FINDINGS: Findings of pulmonary edema slightly progressive as compared to the prior study. Diaphragms smooth. Very slight chronic blunting right lateral costophrenic angle. IMPRESSION: Pulmonary edema slightly progressive from the prior exam. Electronically signed by: Kirill Escoto M.D. 10/06/2016 4:11 PM Dictated Date/Time: 10/06/2016 4:[address] SCAN OF THE CHEST WITHOUT IV CONTRAST FINDINGS: Thyroid: Atrophic. Thoracic aorta: There is advanced atherosclerotic calcification of the thoracic aorta, which is normal in caliber and demonstrates standard 3-vessel arch anatomy. Heart: The heart is enlarged and without pericardial effusion. The coronary arteries are densely calcified. There is diminished attenuation of the cardiac blood pool as compared to the myocardium suggesting anemia. The main pulmonary arteries are dilated suggesting pulmonary artery hypertension. Lungs and pleural spaces: Evaluation of the lung parenchyma is degraded by expiratory motion artifact. Pleural effusions have almost completely resolved from previous. Diffuse intralobular septal thickening has improved. Diffuse/multifocal bilateral airspace opacification has modestly worsened from 09/22/2016. The trachea and central airways appear clear. Mediastinum: There are numerous prominent mediastinal lymph nodes which measure up to 9 mm in short axis. Calcified mediastinal nodes are observed. Susy: Not well assessed without IV contrast. There are calcified right hilar nodes. Axillae: There is no axillary lymphadenopathy. Upper abdomen: A small hiatal hernia is identified. Numerous calcified gallstones are identified. There are numerous calcified splenic granulomas. Calcified hepatic granulomas are also seen. The partially imaged left kidney demonstrates marked cortical atrophy. Skeletal structures: The skeletal structures are osteopenic. There is an age indeterminant superior endplate compression deformity of T11. Large hemangiomas are seen in the bodies of T1, T2, and L1. No lytic or blastic bony lesions are seen. Advanced arthritic change is noted in the shoulders. IMPRESSION: 1. Streak and motion degraded examination. 2. The heart is enlarged. Intralobular septal thickening has somewhat improved from previous, possibly representing improvement in congestive failure. 3. Diffuse bilateral airspace opacities have modestly worsened from previous. The appearance is nonspecific, and differential considerations remain pulmonary edema, pneumonia, pulmonary hemorrhage, and/or ARDS. Clinical correlation will be required. 4. Small pleural effusions have almost completely resolved from 09/22/2016. 5. Cholelithiasis. 6. Numerous prominent mediastinal lymph nodes are indeterminant and may be reactive. 7. Additional findings as above. Electronically signed by: Yimi Lo M.D. 10/06/2016 5:41 PM Dictated Date/Time: 10/06/2016 5:35 PM ULTRASOUND BILATERAL LOWER EXTREMITY VENOUS FINDINGS: There is no sonographic evidence of deep venous thrombosis identified in the right or left lower extremity. The common femoral, superficial femoral, and popliteal veins are patent and normally compressible bilaterally. The greater saphenous vein and the profunda femoris vein at the junction with the common femoral vein are clear in both legs. The visualized calf veins are patent bilaterally. A minimally complex popliteal cyst on the left measures 2.7 x 1.1 x 0.7 cm. Superficial venous thrombus seen within the left popliteal fossa on 09/23/2016 is no longer visualized. IMPRESSION: 1. There is no sonographic evidence of deep venous thrombosis identified in the right or left lower extremity. 2. Small left popliteal cyst. Electronically signed by: Yimi Lo M.D. 10/06/2016 9:18 PM Dictated Date/Time: 10/06/2016 9:17 PM Laboratory Results 10/06/16 16:22 Red Blood Count 2.38, Mean Corpuscular Volume 96.2, Mean Corpuscular Hemoglobin 33.2, Mean Corpuscular Hemoglobin Concent 34.5, Mean Platelet Volume 8.7, Neutrophils (%) (Auto) 92.2, Lymphocytes (%) (Auto) 6.1, Monocytes (%) (Auto) 0.4, Eosinophils (%) (Auto) 0.0, Basophils (%) (Auto) 0.1, Neutrophils # (Auto) 18.04, Lymphocytes # (Auto) 1.20, Monocytes # (Auto) 0.07, Eosinophils # (Auto) 0.00, Basophils # (Auto) 0.01 10/06/16 16:22 Test 10/06/16 16:22 10/06/16 17:05 White Blood Count 19.55 K/uL (4.8-10.8) Red Blood Count 2.38 M/uL (4.2-5.4) Hemoglobin 7.9 g/dL (12.0-16.0) Hematocrit 22.9 % (37-47) Mean Corpuscular Volume 96.2 fL (80-100) Mean Corpuscular Hemoglobin 33.2 pg (25-34) Mean Corpuscular Hemoglobin Concent 34.5 g/dl (32-36) Platelet Count 183 K/uL (130-400) Mean Platelet Volume 8.7 fL (7.4-10.4) Neutrophils (%) (Auto) 92.2 % Lymphocytes (%) (Auto) 6.1 % Monocytes (%) (Auto) 0.4 % Eosinophils (%) (Auto) 0.0 % Basophils (%) (Auto) 0.1 % Neutrophils # (Auto) 18.04 K/uL (1.4-6.5) Lymphocytes # (Auto) 1.20 K/uL (1.2-3.4) Monocytes # (Auto) 0.07 K/uL (0.11-0.59) Eosinophils # (Auto) 0.00 K/uL (0-0.5) Basophils # (Auto) 0.01 K/uL (0-0.2) RDW Standard Deviation 75.9 fL (36.4-46.3) RDW Coefficient of Variation 22.1 % (11.5-14.5) Immature Granulocyte % (Auto) 1.2 % Immature Granulocyte # (Auto) 0.23 K/uL (0.00-0.02) Polychromasia 1+ Anisocytosis PRESENT Prothrombin Time 10.5 SECONDS (9.0-12.0) Prothromb Time International Ratio 1.0 (0.9-1.1) Activated Partial Thromboplast Time 21.4 SECONDS (21.0-31.0) Partial Thromboplastin Ratio 0.8 Venous Blood pH 7.40 (7.36-7.41) Venous Blood Partial Pressure CO2 37 mmHg (38.0-50.0) Venous Blood Partial Pressure O2 28 mmHg Venous Blood HCO3 22 mmol/L Venous Blood Oxygen Saturation < 60.0 % Venous Blood Base Excess -2.3 mmol/L Anion Gap 12.0 mmol/L (3-11) Est Creatinine Clear Calc Drug Dose 16.0 ml/min Estimated GFR () 23.8 Estimated GFR (Non- 20.5 BUN/Creatinine Ratio 25.4 (10-20) Calcium Level 7.9 mg/dl (8.5-10.1) Total Bilirubin 1.8 mg/dl (0.2-1) Aspartate Amino Transf (AST/SGOT) 32 U/L (15-37) Alanine Aminotransferase (ALT/SGPT) 36 U/L (12-78) Alkaline Phosphatase 56 U/L (45-117) Troponin I 0.098 ng/ml (0-0.045) Pro-B-Type Natriuretic Peptide 61497 pg/ml (0-1800) Total Protein 5.9 gm/dl (6.4-8.2) Albumin 3.3 gm/dl (3.4-5.0) Globulin 2.6 gm/dl (2.5-4.0) Albumin/Globulin Ratio 1.3 (0.9-2) Urine Color DK YELLOW Urine Appearance CLOUDY (CLEAR) Urine pH 5.0 (4.5-7.5) Urine Specific [place] 1.019 (1.000-1.030) Urine Protein 2+ (NEG) Urine Glucose (UA) 2+ (NEG) Urine Ketones NEG (NEG) Urine Occult Blood 1+ (NEG) Urine Nitrite NEG (NEG) Urine Bilirubin NEG (NEG) Urine Urobilinogen NEG (NEG) Urine Leukocyte Esterase NEG (NEG) Urine WBC (Auto) 1-5 /hpf (0-5) Urine RBC (Auto) 0-4 /hpf (0-4) Urine Hyaline Casts (Auto) 5-10 /lpf (0-5) Urine Epithelial Cells (Auto) >30 /lpf (0-5) Urine Bacteria (Auto) NEG (NEG) ECG Indication: SOB/dyspnea Rate (beats per minute): 72 Rhythm: sinus rhythm Findings: PVC, other (normal axis; poor baseline) ED Course ED COURSE: Vital signs were reviewed and showed hypoxic and tachycardic. The patients medical record was reviewed The above diagnostic studies were performed and reviewed. ED treatments and interventions as stated above. 1545: The patient was evaluated in room A1. A complete history and physical examination was performed. 175: I updated the patient and family. 1817: I reviewed the patient's case with Dr. Serna. She will evaluate the patient for further management. 1819: Upon reevaluation, the patient is doing well.I discussed my findings with the patient and she understands and agrees with the treatment plan. Based on the patients age, coexisting illnesses, exam and lab findings the decision to treat as an inpatient was made. The patient remained stable while under my care. The patient will be evaluated for further management. Medical Decision Differential diagnoses includes but is not limited to pneumonia, bronchitis, COPD/Asthma exacerbation, pneumothorax, pulmonary embolism, congestive heart failure, acute coronary syndrome Patient is an 86-year-old female who presents the ER on CPAP from home where she was found to have a pulse ox of 60% on room air. She notes that she has been coughing up blood and has become extremity short of breath today. Labs show a leukocytosis of 20,000. Hemoglobin stable at 8. VBG was unremarkable. Creatinine was slightly elevated at 2.1. Troponin was elevated at 0.09. BNP was elevated at 20,000. UA was unremarkable. CT of the chest is fairly unchanged from her previous. Upon presentation she was immediately placed on CPAP and this was continued throughout her stay in the ER. Upon review of her chart does show she had same presentation in early September. At that time she had a duplex of the lower extremities and irregular CT of the chest which were negative. I do not feel as though this consistent with a PE but did repeat duplexes of the lower extremities which were both negative. Patient remained hemodynamic were stable on BiPAP and was admitted to internal medicine for further workup. Consults Time Called: 1804 Consulting Physician: [place], [facility] [place] Call: 1817 I reviewed the patient's case with Dr. Serna. She will evaluate the patient for further management. Impression Primary Impression: Acute respiratory failure with hypoxia and hypercapnia Additional Impressions: Hypoxia Chronic anemia Acute kidney injury Elevated troponin Critical Care I have personally spent 130 minutes of critical care time in the direct management of this patient. This includes bedside care, interpretation of diagnostic studies, and testing, discussion with consultants, patient, and family members, and other required patient management activities. This 130 minutes is in excess of all separately billable procedures. Scribe Attestation The scribe's documentation has been prepared under my direction and personally reviewed by me in its entirety. I confirm that the note above accurately reflects all work, treatment, procedures, and medical decision making performed by me. Departure Information Dispostion Being Evaluated By Hospitalist Referrals Eugenio Cardenas M.D. (PCP) Patient Instructions Asthma - [facility], COPD - [facility], Croup - [facility], [facility] Problem Qualifiers
[2016-10-06] MEDS ORDERED: AZITHROMYCIN IV 500 MG in DEXTROSE 5% 250ML 250 ML IV SCH (22:00)
[2016-10-06] MEDS ORDERED: INVANZ~PHARMACY CONSULT IN PROGRESS PRN (22:00)
--- NOTE | 2016-10-06 22:12 | History and Physical ---
History & Physical Date & Time of Service: Oct 06, 2016 at 22:12 Chief Complaint: Acute Respiratory Failure W/ Hypoxia & Hypercapnia Primary Care Physician: Eugenio Cardenas M.D. History of Present Illness Source: patient, family The patient is an 86-year-old female who presents to the emergency department with persistent and worsening difficulty breathing that began earlier in the day. EMS reports that when they got to her residence her pulse ox was in the 80s and she was very short of breath, had a productive cough had rales throughout. They then placed her on CPAP and nitro drip and patient was transported to the emergency department for assessment. The patient was most recently admitted into the hospital from September 22- for similar symptoms, and also required 3 units packed RBCs at that time. She was seen at her PCPs office earlier in the day, with reported O2 sat of 80% , and when she returned home, despite being on 2 L of nasal cannula she continued to worsen and her son called EMS. The patient reports that in addition to being short of breath, she has had some intermittent chest tightness , and has coughed up some occasional blood tinged sputum. 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 Family History Heart disease Social History Smoking Status: Never Smoker Drug Use: none Marital Status: Housing status: lives with family Occupational Status: retired Immunizations History of Influenza Vaccine: Yes History of Tetanus Vaccine?: Unknown History of Pneumococcal: Yes History of Hepatitis B Vaccine: Unknown Multi-Drug Resistant Organisms History of MDRO: No Allergies Coded Allergies: Doxycycline (Verified Allergy, Severe, RASH, 09/22/16) Trimethoprim (Verified Allergy, Severe, RASH, 09/22/16) Adhesives (Verified Allergy, Unknown, HAD RXN TO [employer]ES, ) Atorvastatin (Unverified Allergy, Unknown, UNKNOWN, 10/06/16) Carbamazepine (Verified Allergy, Unknown, 10/06/16) Hydantoins (Verified Allergy, Unknown, 09/22/16) Levofloxacin (Unverified Allergy, Unknown, UNKNOWN, 10/06/16) Penicillins (Verified Allergy, Unknown, AMOXIL, 10/06/16) Phenytoin (Verified Allergy, Unknown, 10/06/16) Home Medications Scheduled Cholecalciferol (Vitamin D3), 1 TAB PO DAILY Cyanocobalamin (Vitamin B-12), 1,000 MCG PO DAILY Diltiazem Hcl Ext Rel (Tiazac), 240 MG PO DAILY Levothyroxine Sodium (Synthroid), 75 MCG PO DAILY Lisinopril (Zestril), 20 MG PO DAILY Oxygen (Oxygen), 2 LITERS NA PRN Pantoprazole (Protonix), 20 MG PO BID Pravastatin (Pravachol ), 20 MG PO HS Prednisone (Prednisone), 40 MG PO DAILY Review of Systems The patient denies palpitations lower extremity swelling, vision change, hearing change, sore throat, fevers, chills, sweats, weight change, nausea, vomiting, abdominal pain, pelvic pain, blood in urine or stool, dysuria, urinary frequency or urgency, lightheadedness, dizziness, headache, memory loss , rash, abnormal bruising or bleeding, focal or generalized weakness, numbness or tingling in arms or legs, arthralgias or myalgias, back or neck pain, night sweats, or allergy symptoms. The review of systems is otherwise negative other than for that already noted above, and at least 10 systems have been reviewed. Physical Exam Vital Signs Date Time Temp Pulse Resp B/P Pulse Ox O2 Delivery O2 Flow Rate FiO2 10/06/16 22:00 157/77 10/06/16 21:50 74 100 10/06/16 21:45 150/63 10/06/16 21:30 141/67 10/06/16 21:20 69 97 10/06/16 21:15 152/66 10/06/16 20:30 122/57 10/06/16 20:20 69 97 BiPAP 10/06/16 20:18 66 10/06/16 20:15 135/59 10/06/16 20:00 134/58 10/06/16 19:50 62 97 10/06/16 19:45 134/67 10/06/16 19:30 144/65 10/06/16 19:25 69 97 10/06/16 19:15 140/63 10/06/16 19:00 135/60 10/06/16 18:55 71 97 10/06/16 18:45 146/66 10/06/16 18:34 36.5 66 20 141/61 97 BiPAP 40 10/06/16 18:30 141/61 10/06/16 18:25 62 98 10/06/16 18:15 134/61 10/06/16 18:00 146/66 10/06/16 17:55 64 99 10/06/16 17:45 135/59 10/06/16 17:20 70 97 10/06/16 17:15 135/78 10/06/16 17:11 35.5 68 24 149/89 93 BiPAP 40 10/06/16 17:01 149/89 10/06/16 16:50 63 96 10/06/16 16:45 134/64 10/06/16 16:30 146/79 10/06/16 16:27 24 10/06/16 16:21 CPAP 40 10/06/16 16:20 66 91 10/06/16 16:15 72 10/06/16 16:15 144/72 10/06/16 16:15 144/72 10/06/16 16:09 68 91 10/06/16 16:09 68 91 10/06/16 15:57 BiPAP 10/06/16 15:48 173/70 10/06/16 15:48 173/70 10/06/16 15:45 92 CPAP 10/06/16 15:45 73 94 40 10/06/16 15:45 70 173/70 95 CPAP 10/06/16 15:45 73 30 94 CPAP 40 The patient is awake, alert and oriented 3, wearing a BiPAP mask in the ED, lying in bed and in mild acute distress. HEENT--PERRL, EOMI, mucous membranes and oropharynx dry. Neck--supple, no JVD or bruits, thyroid normal, trachea midline, no adenopathy. Heart--tachycardic and regular, no extra beats, no murmurs, rubs or gallops. Lungs--coarse breath sounds bilaterally, mild respiratory distress, no accessory muscle use. Abdomen--normal bowel sounds and soft, nontender and nondistended, no hernias or masses, no organomegaly. Extremities--no cyanosis, clubbing or edema. There are good distal pulses b/l. Dermatologic--normal skin turgor, normal color, warm and dry, no abnormal lymph nodes, no rash. Neurologic--cranial nerves II through XII grossly intact. Rheumatologic--normal range of motion, nontender, muscles and joints. Psychiatric--normal affect. Diagnostics Laboratory Results Results Past 24 Hours Test 10/06/16 16:22 10/06/16 17:05 Range/Units White Blood Count 19.55 4.8-10.8 K/uL Red Blood Count 2.38 4.2-5.4 M/uL Hemoglobin 7.9 12.0-16.0 g/dL Hematocrit 22.9 37-47 % Mean Corpuscular Volume 96.2 80-100 fL Mean Corpuscular Hemoglobin 33.2 25-34 pg Mean Corpuscular Hemoglobin Concent 34.5 32-36 g/dl Platelet Count 183 130-400 K/uL Mean Platelet Volume 8.7 7.4-10.4 fL Neutrophils (%) (Auto) 92.2 % Lymphocytes (%) (Auto) 6.1 % Monocytes (%) (Auto) 0.4 % Eosinophils (%) (Auto) 0.0 % Basophils (%) (Auto) 0.1 % Neutrophils # (Auto) 18.04 1.4-6.5 K/uL Lymphocytes # (Auto) 1.20 1.2-3.4 K/uL Monocytes # (Auto) 0.07 0.11-0.59 K/uL Eosinophils # (Auto) 0.00 0-0.5 K/uL Basophils # (Auto) 0.01 0-0.2 K/uL RDW Standard Deviation 75.9 36.4-46.3 fL RDW Coefficient of Variation 22.1 11.5-14.5 % Immature Granulocyte % (Auto) 1.2 % Immature Granulocyte # (Auto) 0.23 0.00-0.02 K/uL Polychromasia 1+ Anisocytosis PRESENT Prothrombin Time 10.5 9.0-12.0 SECONDS Prothromb Time International Ratio 1.0 0.9-1.1 Activated Partial Thromboplast Time 21.4 21.0-31.0 SECONDS Partial Thromboplastin Ratio 0.8 Venous Blood pH 7.40 7.36-7.41 Venous Blood Partial Pressure CO2 37 38.0-50.0 mmHg Venous Blood Partial Pressure O2 28 mmHg Venous Blood HCO3 22 mmol/L Venous Blood Oxygen Saturation < 60.0 % Venous Blood Base Excess -2.3 mmol/L Sodium Level 131 136-145 mmol/L Potassium Level 4.5 3.5-5.1 mmol/L Chloride Level 97 98-107 mmol/L Carbon Dioxide Level 22 21-32 mmol/L Anion Gap 12.0 3-11 mmol/L Blood Urea Nitrogen 53 7-18 mg/dl Creatinine 2.10 0.60-1.20 mg/dl Est Creatinine Clear Calc Drug Dose 16.0 ml/min Estimated GFR () 23.8 Estimated GFR (Non- 20.5 BUN/Creatinine Ratio 25.4 10-20 Random Glucose 248 70-99 mg/dl Calcium Level 7.9 8.5-10.1 mg/dl Total Bilirubin 1.8 0.2-1 mg/dl Aspartate Amino Transf (AST/SGOT) 32 15-37 U/L Alanine Aminotransferase (ALT/SGPT) 36 12-78 U/L Alkaline Phosphatase 56 45-117 U/L Troponin I 0.098 0-0.045 ng/ml Pro-B-Type Natriuretic Peptide 01070 0-1800 pg/ml Total Protein 5.9 6.4-8.2 gm/dl Albumin 3.3 3.4-5.0 gm/dl Globulin 2.6 2.5-4.0 gm/dl Albumin/Globulin Ratio 1.3 0.9-2 Urine Color DK YELLOW Urine Appearance CLOUDY CLEAR Urine pH 5.0 4.5-7.5 Urine Specific [place] 1.019 1.000-1.030 Urine Protein 2+ NEG Urine Glucose (UA) 2+ NEG Urine Ketones NEG NEG Urine Occult Blood 1+ NEG Urine Nitrite NEG NEG Urine Bilirubin NEG NEG Urine Urobilinogen NEG NEG Urine Leukocyte Esterase NEG NEG Urine WBC (Auto) 1-5 0-5 /hpf Urine RBC (Auto) 0-4 0-4 /hpf Urine Hyaline Casts (Auto) 5-10 0-5 /lpf Urine Epithelial Cells (Auto) >30 0-5 /lpf Urine Bacteria (Auto) NEG NEG Diagnostic Radiology Patient Name: KEMI SULTANA Unit Number: [id number] Dictated: 10/06/161609 Transcribed: 10/06/161609 MS Printed Date/Time: [~ rep prt dt]/[~ rep prt tm] [~ rep ct labl] - [~ rep ct ivnm] [facility] Radiology Department [place], [place] [id number] Dictated: 10/06/161609 Transcribed: 10/06/16 1610 MS Printed Date/Time: [~ rep prt dt]/[~ rep prt tm] [~ rep ct labl] - [~ rep ct ivnm] [~ rep ct add3]] CHEST ONE VIEW PORTABLE CLINICAL HISTORY: EVALUATE RESPIRATORY DISTRESS. DYSPNEA dyspnea COMPARISON STUDY: 09/22/2016 FINDINGS: Findings of pulmonary edema slightly progressive as compared to the prior study. Diaphragms smooth. Very slight chronic blunting right lateral costophrenic angle. IMPRESSION: Pulmonary edema slightly progressive from the prior exam. Electronically signed by: Kirill Escoto M.D. 10/06/2016 4:11 PM Dictated Date/Time: 10/06/2016 4:10 PM The status of this report is Signed. Draft = Not yet reviewed or approved by Radiologist. Signed = Reviewed and approved by Radiologist. <AttendingPhy></AttendingPhy> <FamilyPhy>Eugenio Sanon MD</FamilyPhy> < PrimaryPhy>Eugenio Cardenas M.D.</PrimaryPhy> <UnitNumber>[id number]</ UnitNumber> <VisitNumber>[id number]</VisitNumber> <PatientName>KEMI SULTANA</ PatientName> <DateOfBirth>1930</DateOfBirth> <Location>[facility]</Location> < ServiceDate>10/06/16</ServiceDate> <MNE>ESINDI</MNE> <OrderingPhy>Rohit Arauz DO</OrderingPhy> <OrderingPhyMNE>f rep ord dr moseley</OrderingPhyMNE> < DictatingPhyMNE>f rep dict dr moseely</DictatingPhyMNE> <CCListMNE>f rep ct mne</ CCListMNE> <AdmittingPhyMNE>f pt admit dr moseley</AdmittingPhyMNE> <AttendingPhyMNE >f pt attend dr moseley</AttendingPhyMNE> <ConsultingPhyMNE>f pt consult dr moseley</ConsultingPhyMNE> <FamilyPhyMNE>f pt fam dr moseley</FamilyPhyMNE> <OtherPhyMNE>f pt other dr moseley</OtherPhyMNE> < PrimaryPhyMNE>f pt prim care dr moseley</PrimaryPhyMNE> <ReferringPhyMNE>f pt referring dr moseley</ReferringPhyMNE> CT SCAN OF THE CHEST WITHOUT IV CONTRAST CLINICAL HISTORY: Dyspnea. Hemoptysis. COMPARISON STUDY: Chest CT dated 09/22/2016 and 06/13/2014. Chest x-ray dated 09/22/2016. TECHNIQUE: CT scan of the thorax was performed from the thoracic inlet to the upper abdomen. Images are reviewed in the axial, sagittal, and coronal planes. IV contrast was not administered for this examination. The examination is degraded by streak artifact from the patient's right arm which could not be elevated above the chest. The examination is also degraded by motion artifact. CT DOSE: 211.46 mGy.cm FINDINGS: Thyroid: Atrophic. Thoracic aorta: There is advanced atherosclerotic calcification of the thoracic aorta, which is normal in caliber and demonstrates standard 3-vessel arch anatomy. Heart: The heart is enlarged and without pericardial effusion. The coronary arteries are densely calcified. There is diminished attenuation of the cardiac blood pool as compared to the myocardium suggesting anemia. The main pulmonary arteries are dilated suggesting pulmonary artery hypertension. Lungs and pleural spaces: Evaluation of the lung parenchyma is degraded by expiratory motion artifact. Pleural effusions have almost completely resolved from previous. Diffuse intralobular septal thickening has improved. Diffuse/multifocal bilateral airspace opacification has modestly worsened from 09/22/2016. The trachea and central airways appear clear. Mediastinum: There are numerous prominent mediastinal lymph nodes which measure up to 9 mm in short axis. Calcified mediastinal nodes are observed. Susy: Not well assessed without IV contrast. There are calcified right hilar nodes. Axillae: There is no axillary lymphadenopathy. Upper abdomen: A small hiatal hernia is identified. Numerous calcified gallstones are identified. There are numerous calcified splenic granulomas. Calcified hepatic granulomas are also seen. The partially imaged left kidney demonstrates marked cortical atrophy. Skeletal structures: The skeletal structures are osteopenic. There is an age indeterminant superior endplate compression deformity of T11. Large hemangiomas are seen in the bodies of T1, T2, and L1. No lytic or blastic bony lesions are seen. Advanced arthritic change is noted in the shoulders. IMPRESSION: 1. Streak and motion degraded examination. 2. The heart is enlarged. Intralobular septal thickening has somewhat improved from previous, possibly representing improvement in congestive failure. 3. Diffuse bilateral airspace opacities have modestly worsened from previous. The appearance is nonspecific, and differential considerations remain pulmonary edema, pneumonia, pulmonary hemorrhage, and/or ARDS. Clinical correlation will be required. 4. Small pleural effusions have almost completely resolved from 09/22/2016. 5. Cholelithiasis. 6. Numerous prominent mediastinal lymph nodes are indeterminant and may be reactive. 7. Additional findings as above. Electronically signed by: Yimi Lo M.D. 10/06/2016 5:41 PM Dictated Date/Time: 10/06/2016 5:35 PM The status of this report is Signed. Draft = Not yet reviewed or approved by Radiologist. S Patient Name: KEMI SULTANA Unit Number: [id number] Dictated: 10/06/162116 Transcribed: 10/06/162116 EV Printed Date/Time: [~ rep prt dt]/[~ rep prt tm] [~ rep ct labl] - [~ rep ct ivnm] [facility] Radiology Department [place], [place] [id number] Dictated: 10/06/162116 Transcribed: 10/06/162116 EV Printed Date/Time: [~ rep prt dt]/[~ rep prt tm] [~ rep ct labl] - [~ rep ct ivnm] ULTRASOUND BILATERAL LOWER EXTREMITY VENOUS CLINICAL HISTORY: Dyspnea. Cough. Clinical concern for deep venous thrombosis. COMPARISON STUDY: Bilateral lower extremity venous ultrasound dated 09/23/2016. TECHNIQUE: Real-time, grayscale, and color Doppler sonography of the deep veins of the right and left lower extremity was performed from the inguinal crease to the calf. Compression and augmentation were utilized. FINDINGS: There is no sonographic evidence of deep venous thrombosis identified in the right or left lower extremity. The common femoral, superficial femoral, and popliteal veins are patent and normally compressible bilaterally. The greater saphenous vein and the profunda femoris vein at the junction with the common femoral vein are clear in both legs. The visualized calf veins are patent bilaterally. A minimally complex popliteal cyst on the left measures 2.7 x 1.1 x 0.7 cm. Superficial venous thrombus seen within the left popliteal fossa on 09/23/2016 is no longer visualized. IMPRESSION: 1. There is no sonographic evidence of deep venous thrombosis identified in the right or left lower extremity. 2. Small left popliteal cyst. Electronically signed by: Yimi Lo M.D. 10/06/2016 9:18 PM Dictated Date/Time: 10/06/2016 9:17 PM The status of this report is Signed. Draft = Not yet reviewed or approved by Radiologist. Signed = Reviewed and approved by Radiologist. <AttendingPhy>Rodger Lyons M.D.</AttendingPhy> <FamilyPhy>Eugenio Sanon MD</FamilyPhy> <PrimaryPhy>Eugenio Cardenas M.D.</ PrimaryPhy> <UnitNumber>[id number]</UnitNumber> <VisitNumber>[id number]</ VisitNumber> <PatientName>KEMI SULTANA</PatientName> <DateOfBirth>1930</ DateOfBirth> <Location>[facility]</Location> <ServiceDate>10/06/16</ServiceDate> < MNE>ESINDI</MNE> <OrderingPhy>Rohit Arauz DO</OrderingPhy> <OrderingPhyMNE>f rep ord dr moseley</OrderingPhyMNE> <DictatingPhyMNE>f rep dict dr moseley</ DictatingPhyMNE> <CCListMNE>f rep ct lorelei</CCListMNE> <AdmittingPhyMNE>f pt admit dr moseley</AdmittingPhyMNE> <AttendingPhyMNE>f pt attend dr moseley</ AttendingPhyMNE> <ConsultingPhyMNE>f pt consult dr moseley</ConsultingPhyMNE> <FamilyPhyMNE>f pt fam dr moseley</FamilyPhyMNE> <OtherPhyMNE>f pt other dr moseley</OtherPhyMNE> < PrimaryPhyMNE>f pt prim care dr moseley</PrimaryPhyMNE> <ReferringPhyMNE>f pt referring dr moseley</ReferringPhyMNE> EKG EKG shows normal sinus rhythm at 72 bpm, PACs, PVCs, left ventricular hypertrophy, no acute ST-T changes. Impression Assessment and Plan Acute respiratory failure with hypoxia and hypercapnia/acute CHF exacerbation/ bilateral pneumonia/ARDS--admit to the telemetry unit for serial cardiac enzymes , cardiac rhythm monitoring and a 2-D echocardiogram with Dopplers. We'll continue BiPAP per protocol started in the emergency department. Acute CHF exacerbation/aortic valve disorder/atrial fibrillation/CAD/ hypertension/chronic renal failure/nephrotic syndrome--give 25 g of albumin with 40 mg of Lasix IV 1 now, then Lasix 40 mg IV twice a day. Place a Hu catheter to follow I's and O's closely. Follow BMP and magnesium level every a.m.. Continue diltiazem extended release 240 mg by mouth daily, and lisinopril 20 mg by mouth daily. Bilateral pneumonia--place on vancomycin IV per renal dosing, ertapenem 1 g IV daily, azithromycin 500 mg IV every 24 hours, guaifenesin extended release 60 mg by mouth twice a day, Solu-Medrol 60 mg IV every 6 hours, and Xopenex with Atrovent nebulizer to use every 6 hours while awake and every 2 hours when necessary. Hold prednisone 40 mg by mouth daily. Hypercholesterolemia--continue pravastatin 20 mg by mouth at bedtime. GERD--change pantoprazole 20 mg by mouth twice a day 40 mg by mouth twice a day. Hypothyroidism--continue levothyroxine sodium 75 g by mouth daily. Vitamin B12 deficiency--continue supplement 1000 g by mouth daily. Cerebrovascular disease/CVA without residual deficits--no acute events at this time. Level of Care Telemetry Advanced Directives Existing Advance Directive: No Existing Living Will: No Existing Power of Computer Scientist: No Resuscitation Status FULL RESUSCITATION VTE Prophylaxis VTE Risk Assessment Done? Y/N: Yes Risk Level: Moderate Given or contraindicated: SCD's
[2016-10-07] VITALS (31 sets, daily range): BP systolic 85–133; BP diastolic 46–67; PULSE 60–95; TEMP 36.2–37.6; O2SAT 85–99; Ht 162.6 cm; Wt 52.5 kg
[2016-10-07] MEDS: IPRATROPIUM BROMIDE NEB SOLN 0.02% 2.5 ML VIAL INH SCH ×4 (02:12→19:21)
[2016-10-07] MEDS: LEVALBUTEROL 1.25MG/0.5ML NEB INH SCH ×4 (02:12→19:21)
[2016-10-07] MEDS: METHYLPREDNISOLONE IV 60 MG in SYRINGE 0 ML IV SCH ×4 (03:39→21:50)
[2016-10-07 05:02] LABS: BUN/CREATININE RATIO 26.7 (10-20); CALCIUM 7.5 mg/dl (8.5-10.1); CREATININE 1.9 mg/dl (0.60-1.20); MAGNESIUM 2.7 mg/dl (1.8-2.4); POTASSIUM 3.9 mmol/L (3.5-5.1)
[2016-10-07 05:05] LABS: HEMATOCRIT 20.1 % (37-47); MEAN CELL VOLUME 97.1 fL (80-100); MEAN CORPUSCULAR HEMOGLOBIN 32.9 pg (25-34); MEAN CORPUSCULAR HGB CONC 33.8 g/dl (32-36); MEAN PLATELET VOLUME 8.7 fL (7.4-10.4); PLATELET COUNT 132 K/uL (130-400); RED BLOOD COUNT 2.07 M/uL (4.2-5.4); WHITE BLOOD COUNT 13.14 K/uL (4.8-10.8)
[2016-10-07 05:09] LABS: ANISOCYTOSIS PRESENT; COMPLETE YES; IG% 0.5 %; LYMPH % 2.5 %; LYMPH ABS # 0.33 K/uL (1.2-3.4); MONO % 1.7 %; NEUT % 95.3 %; POLYCHROMASIA 1+
[2016-10-07 05:11] LABS: CKMB/CK RATIO 7.9 (0-3.0)
--- NOTE | 2016-10-07 06:06 | Progress Note ---
Progress Note Date of Service Oct 07, 2016. Progress Note Received call at 5 am about patients critically low Hgb at 6.8. Patient admitted for Acute Resp. failure and CHF exacerbation. Currently on Bipap I went to see the patient. She is not more symptomatic than on presentation. Obviously difficult to assess with resp. complaints on presentation Denies melena, hematochezia, hemoptysis, dizziness. Plan: Trend H/H Blood ordered on admission when hemoglobin was 7.9, however delayed due to antibodies Hemoccult pending Nurse reports shortly after that her blood Will not arrive till later today. Ordered Procrit Iron studies, Vit b12, Folate
[2016-10-07] MEDS: LEVOTHYROXINE 75 MCG TAB PO SCH (06:14)
[2016-10-07 06:49] LABS: FERRITIN 247.4 ng/ml (8.0-388.0)
--- NOTE | 2016-10-07 07:53 | Family Medicine Progress Note ---
Progress Note Date of Service Oct 07, 2016. Subjective Pt evaluation today including: conversation w/ patient, conversation w/ family (son and ), physical exam, chart review, review of studies, conversation w/ method consultant (Dr Lagunas), review of inpatient medication list Pain: 0 PO Intake: good, no coughing, choking with eating Voiding: sweet catheter in place Mrs Rivera feels generally fatigued. She denies any difficulty breathing, chest pain, palpitations or edema. She had an episode of a small amount of hemoptysis yesterday before admission but reports this was much smaller than her previous recent admission. She denies any nausea, vomiting, abdominal pain. She reports having regular BM but thinks she maybe darker than usual. She denies any black tarry stool or bright red blood in her stool. Constitutional: No chills, No fever Eyes: No worsening of vision Respiratory: + hemoptysis (as per HPI, none during this admission), No cough , No dyspnea on exertion, No shortness of breath, No sputum, No wheezing Cardiovascular: No PND, No chest pain, No claudication, No edema, No orthopnea, No palpitations Abdomen: + GI bleeding (possibly, see HPI), No constipation, No diarrhea, No nausea, No pain, No vomiting Musculoskeletal: No joint pain, No muscle pain Female : No dysuria, No hematuria, No incontinence, No urinary frequency Heme: + abnormal bleeding/bruising (hemoptysis, no skin bruising or petechia ) All Other Systems: Reviewed and Negative Medications Current Inpatient Medications Medications (Trade) Dose Ordered Sig/Phillip Route Start Time Stop Time Status Last Admin Dose Admin Ioversol (Optiray 320) 100 ml UD PRN IV 10/06/16 17:00 10/10/16 16:59 Acetaminophen (Tylenol Tab) 650 mg Q4H PRN PO 10/06/16 20:00 11/05/16 19:59 Cholecalciferol (Vitamin D Tab) 1,000 inter.unit DAILY PO 10/07/16 09:00 11/06/16 08:59 Cyanocobalamin (Vitamin B-12 Tab) 1,000 mcg DAILY PO 10/07/16 09:00 11/06/16 08:59 Diltiazem HCl (TIAzac CAP) 240 mg DAILY PO 10/07/16 09:00 11/06/16 08:59 Levothyroxine Sodium (Synthroid Tab) 75 mcg DAILYBB PO 10/07/16 06:00 11/06/16 06:59 10/07/16 06:14 75 MCG Lisinopril (Zestril Tab) 20 mg DAILY PO 10/07/16 09:00 11/06/16 08:59 Pravastatin Sodium 20 mg 20 mg HS PO 10/06/16 21:00 11/05/16 20:59 10/06/16 21:39 20 MG Methylprednisolone Sodium Succinate/ Syringe (Solu-Medrol IV/ Syringe) 0.96 ml @ 1.5 mls/min Q6H IV 10/06/16 21:00 11/05/16 20:59 10/07/16 03:39 1.5 MLS/MIN Ondansetron HCl 4 mg 4 mg Q6H PRN IV 10/06/16 20:15 11/05/16 20:14 Acetaminophen 100 ml @ 400 mls/hr Q8H PRN IV 10/06/16 20:15 11/05/16 20:14 10/06/16 22:02 400 MLS/HR Azithromycin/ Dextrose (Zithromax IV/D5 250ml) 255 ml @ 125 mls/hr DAILY@2200 IV 10/06/16 22:00 10/13/16 21:59 10/06/16 21:19 125 MLS/HR Ipratropium [place] (Atrovent 0.02% 0.5MG/2.5ML Neb) 0.5 mg Q6R INH 10/06/16 21:00 11/05/16 20:59 10/07/16 07:07 0.5 MG Levalbuterol (Xopenex 1.25MG/ 0.5ML Neb) 1.25 mg Q6R INH 10/06/16 21:00 11/05/16 20:59 10/07/16 07:07 1.25 MG Ipratropium [place] (Atrovent 0.02% 0.5MG/2.5ML Neb) 0.5 mg Q2H PRN INH 10/06/16 20:30 11/05/16 20:29 Levalbuterol (Xopenex 1.25MG/ 0.5ML Neb) 1.25 mg Q2H PRN INH 10/06/16 20:30 11/05/16 20:29 Vancomycin HCl (Consult) 1 ea UD PRN N/A 10/06/16 20:45 11/05/16 20:44 Miscellaneous Information 1 ea 1 ea UD PRN N/A 10/06/16 22:00 11/05/16 21:59 Ertapenem 500 mg/ Sodium Chloride 55 ml @ 110 mls/hr Q24H IV 10/07/16 21:00 10/14/16 20:59 Furosemide/Syringe (Lasix Inj/ Syringe) 4 ml @ 4 mls/min BID17 IV 10/07/16 09:00 11/06/16 08:59 Pantoprazole Sodium (Protonix Tab) 40 mg BID PO 10/07/16 09:00 11/06/16 08:59 Epoetin Baljinder (Procrit Inj) 20,000 units NOW IV 10/07/16 06:15 11/06/16 06:14 UNV Objective Vital Signs Date Time Temp Pulse Resp B/P Pulse Ox O2 Delivery O2 Flow Rate FiO2 10/07/16 07:07 76 20 96 Venturi Mask 15.0 50 10/07/16 04:30 36.5 67 16 123/67 97 CPAP 10/07/16 04:00 95 CPAP 40 10/07/16 02:14 69 95 40 10/07/16 02:12 69 22 95 BiPAP/CPAP 40 10/07/16 01:10 69 93 40 10/07/16 00:15 36.5 77 20 107/65 CPAP 40 10/06/16 23:29 66 16 127/67 97 10/06/16 22:54 66 20 133/63 97 CPAP 40 10/06/16 22:15 158/61 100 BiPAP 50 10/06/16 22:05 68 100 10/06/16 22:00 157/77 10/06/16 21:50 74 100 10/06/16 21:45 150/63 10/06/16 21:30 141/67 10/06/16 21:20 69 97 10/06/16 21:15 152/66 10/06/16 20:30 122/57 10/06/16 20:20 69 97 BiPAP 10/06/16 20:18 66 10/06/16 20:15 135/59 10/06/16 20:00 134/58 10/06/16 19:50 62 97 10/06/16 19:45 134/67 10/06/16 19:30 144/65 10/06/16 19:25 69 97 10/06/16 19:15 140/63 10/06/16 19:00 135/60 10/06/16 18:55 71 97 10/06/16 18:45 146/66 10/06/16 18:34 36.5 66 20 141/61 97 BiPAP 40 10/06/16 18:30 141/61 10/06/16 18:25 62 98 10/06/16 18:15 134/61 10/06/16 18:00 146/66 10/06/16 17:55 64 99 10/06/16 17:45 135/59 10/06/16 17:20 70 97 10/06/16 17:15 135/78 10/06/16 17:11 35.5 68 24 149/89 93 BiPAP 40 10/06/16 17:01 149/89 10/06/16 16:50 63 96 10/06/16 16:45 134/64 10/06/16 16:30 146/79 10/06/16 16:27 24 10/06/16 16:21 CPAP 40 10/06/16 16:20 66 91 10/06/16 16:15 72 10/06/16 16:15 144/72 10/06/16 16:15 144/72 10/06/16 16:09 68 91 10/06/16 16:09 68 91 10/06/16 15:57 BiPAP 10/06/16 15:48 173/70 10/06/16 15:48 173/70 10/06/16 15:45 92 CPAP 10/06/16 15:45 73 94 40 10/06/16 15:45 70 173/70 95 CPAP 10/06/16 15:45 73 30 94 CPAP 40 Physical Exam General Appearance: no apparent distress, + pertinent finding (appears mildly malnourished) Eyes: PERRL, EOMI ENT: + pertinent finding (dry mucus membranes) Neck: supple, no JVD (noted only on RUQ deep palpation) Respiratory/Chest: chest non-tender, no respiratory distress, no accessory muscle use, + crackles (coarse crackles throughout her back) Cardiovascular: regular rate, rhythm, no edema, no murmur Abdomen: normal bowel sounds, non tender, soft Extremities: no pedal edema, no calf tenderness, normal capillary refill 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 as tested (visual acuity grossly intact b/l, PERRL, EOMI, no facial droop/weakness, numbness, SCM/TPZ intact, normal speech), no motor/sensory deficits, alert, oriented x 3 Skin: normal color, warm/dry, no rash Laboratory Results 10/07/16 04:30 Red Blood Count 2.07, Mean Corpuscular Volume 97.1, Mean Corpuscular Hemoglobin 32.9, Mean Corpuscular Hemoglobin Concent 33.8, Mean Platelet Volume 8.7, Neutrophils (%) (Auto) 95.3, Lymphocytes (%) (Auto) 2.5, Monocytes (%) (Auto) 1.7, Eosinophils (%) (Auto) 0.0, Basophils (%) (Auto) 0.0, Neutrophils # (Auto) 12.53, Lymphocytes # (Auto) 0.33, Monocytes # (Auto) 0.22, Eosinophils # (Auto) 0.00, Basophils # (Auto) 0.00 10/07/16 04:30 Test 10/06/16 16:22 10/06/16 17:05 10/07/16 04:30 10/07/16 06:12 Prothrombin Time 10.5 SECONDS (9.0-12.0) Prothromb Time International Ratio 1.0 (0.9-1.1) Activated Partial Thromboplast Time 21.4 SECONDS (21.0-31.0) Partial Thromboplastin Ratio 0.8 Venous Blood pH 7.40 (7.36-7.41) Venous Blood Partial Pressure CO2 37 mmHg (38.0-50.0) Venous Blood Partial Pressure O2 28 mmHg Venous Blood HCO3 22 mmol/L Venous Blood Oxygen Saturation < 60.0 % Venous Blood Base Excess -2.3 mmol/L Pro-B-Type Natriuretic Peptide 40701 pg/ml (0-1800) Globulin 2.6 gm/dl (2.5-4.0) Albumin/Globulin Ratio 1.3 (0.9-2) Urine Color DK YELLOW Urine Appearance CLOUDY (CLEAR) Urine pH 5.0 (4.5-7.5) Urine Specific [place] 1.019 (1.000-1.030) Urine Protein 2+ (NEG) Urine Glucose (UA) 2+ (NEG) Urine Ketones NEG (NEG) Urine Occult Blood 1+ (NEG) Urine Nitrite NEG (NEG) Urine Bilirubin NEG (NEG) Urine Urobilinogen NEG (NEG) Urine Leukocyte Esterase NEG (NEG) Urine WBC (Auto) 1-5 /hpf (0-5) Urine RBC (Auto) 0-4 /hpf (0-4) Urine Hyaline Casts (Auto) 5-10 /lpf (0-5) Urine Epithelial Cells (Auto) >30 /lpf (0-5) Urine Bacteria (Auto) NEG (NEG) White Blood Count 13.14 K/uL (4.8-10.8) Red Blood Count 2.07 M/uL (4.2-5.4) Hemoglobin 6.8 g/dL (12.0-16.0) Hematocrit 20.1 % (37-47) Mean Corpuscular Volume 97.1 fL (80-100) Mean Corpuscular Hemoglobin 32.9 pg (25-34) Mean Corpuscular Hemoglobin Concent 33.8 g/dl (32-36) Platelet Count 132 K/uL (130-400) Mean Platelet Volume 8.7 fL (7.4-10.4) Neutrophils (%) (Auto) 95.3 % Lymphocytes (%) (Auto) 2.5 % Monocytes (%) (Auto) 1.7 % Eosinophils (%) (Auto) 0.0 % Basophils (%) (Auto) 0.0 % Neutrophils # (Auto) 12.53 K/uL (1.4-6.5) Lymphocytes # (Auto) 0.33 K/uL (1.2-3.4) Monocytes # (Auto) 0.22 K/uL (0.11-0.59) Eosinophils # (Auto) 0.00 K/uL (0-0.5) Basophils # (Auto) 0.00 K/uL (0-0.2) RDW Standard Deviation 76.3 fL (36.4-46.3) RDW Coefficient of Variation 22.2 % (11.5-14.5) Immature Granulocyte % (Auto) 0.5 % Immature Granulocyte # (Auto) 0.06 K/uL (0.00-0.02) Polychromasia 1+ Basophilic Stippling 1+ Anisocytosis PRESENT Absolute Reticulocyte Count 0.22 10^6/uL (0.02-0.10) Percent Reticulocyte Count 10.4 % (0.5-2.0) Anion Gap 10.0 mmol/L (3-11) Est Creatinine Clear Calc Drug Dose 17.7 ml/min Estimated GFR () 26.8 Estimated GFR (Non- 23.1 BUN/Creatinine Ratio 26.7 (10-20) Calcium Level 7.5 mg/dl (8.5-10.1) Magnesium Level 2.7 mg/dl (1.8-2.4) Iron Level 25 mcg/dl (35-150) Total Iron Binding Capacity 266 mcg/dl (250-450) Transferrin 204 mg/dl (200-360) Transferrin % Saturation 9 % (15-50) Ferritin 247.4 ng/ml (8.0-388.0) Total Creatine Kinase 43 U/L (26-192) Creatine Kinase MB 3.4 ng/ml (0.5-3.6) Creatine Kinase MB Ratio 7.9 (0-3.0) Troponin I 0.094 ng/ml (0-0.045) Test 10/07/16 06:50 Assessment and Plan 86 yo female with recent admission from -29 September 2016 anemia, acute hypoxic respiratory failure and hemoptysis. Possible acute alveolar hemorrhage, but unable to perform bronchoscopy on patient. investigated for vasculitis. Treated with steroids. Acute hypoxic respiratory failure - alveolar hemorrhage vs. pulmonary edema - CT: acute alveolar hemorrhage vs. pulmonary edema - hemoptysis suggests some alveolar hemorrhage - Consult pulmonology given previous involvement - will discuss antibiotics with pulmonology as unlikely this presentation is due to pneumonia. elevated WBC likely as a response to steroids (previously trending up during last admission and kept on prednisone as outpatient. Valvular heart disease with possible pulmonary edema - LVEF 55-60% with mildly dilated left atrium, moderate mitral regurgitaion, mild mitral stenosis, severe calcific aortic valve stenosis - possibly heart failure causing hemorrhage - Continue lasix 40 mg IV BID, slowly diurese maintaining negative balance daily - Continue ACEi Elevated creatinine - nephrology consulted - baseline Cr 1.4, 2.1 on this admission - Monitor serial PRP - ANCA, anti-GBM Ab negative Anemia - transferrin saturation 9 - Fecal occult blood - Awaiting 2 units transfusion from [place] due to abnormal antibodies in her blood. 2 further units ordered - Transfuse 2 units when they arrive Non acute issues CAD/paroxysmal atrial fibrillation/hypertension - currently in normal sinus rhythm with frequent PACs and PVCs - Continue diltiazem controlled release 240 mg PO daily - no anticoagulation secondary to GI bleed Hx PE 2007 - not on anticoagulation secondary to GI bleed, LE dopplers clear on this admission Hx Nephrotic syndrome 2008 - proteinuria new since previous admission, nephrology consult Hypothyroidism - continue levothyroxine VTE prophylaxis - SCDs - chemical prophylaxis secondary to anemia and hemoptysis Code - previously had palliative care consult so ordered again. Does not wish to be for resuscitation currently. Disposition - Continued telemetry stay due to hypoxia and multiple IV medications required. History For attending attestation to this and other notes from today, see progress note from same day of care. Assessment/Plan 86 y/o female h/o CKD, chronic anemia, CAD, , Afib, CHF, HTN and recent pulmonary hemorrhage presenting w/ acute on chronic anemia Acute on chronic anemia s/p 2U PRBC on 3..17 - Hgb stable at 9.9. Goal is 10. 2 units held. Bilateral pulmonary edema w/ hemoptysis - Pulmonology and cardiology aware and input appreciated. Reduced ventilatory support tolerated well. Steroids reduced to 40mg q6h. Tapering diuresis to lasix 40mg daily PO. t/c advancing steroid taper tomorrow. Acute on chronic CKD III, h/o AIN - Nephrology aware and input appreciated. Cr 2.2 GIB - [place] +ve - Gastroenterology aware and input appreciated. No invasive testing at this time. PPI therapy to continue for 6 wks total. Precautions and sx of GIB/anemia reviewed CAD/Atrial fibrillation/aortic valve stenosis/CHF history/hypertension - Diltiazem 240mg daily, lisinopril, pravastatin Goals of care conversation - repeatedly no heroic measures and, when presented w / conversation noted, DNR/DNI 30 minutes discussion with the family today regarding goals of care including potential transition to tertiary care center for further evaluation of this issue with invasive testing. After lengthy discussion regarding her goals of care, the risks and benefits of invasive testing over gradual improvement and further evaluation as outpatient on reserve vs. escalation of care with following acute exacerbation, the family has tentatively decided to remain in our care and pursue further work up as capable here during her recovery and then as outpatient if possible in follow up. We will discuss with specialist consults regarding potential avenues at tertiary care for advanced testing, but I have counseled against this as her goals of care are opposed to the risks of the testing.
[2016-10-07] MEDS ORDERED: PANTOprazole SOD 40 MG TAB PO SCH (09:00)
[2016-10-07 09:03] LABS: ARTERIAL BLD GAS O2 SATURATION 91.4 % (90-95); ARTERIAL BLOOD GAS BASE EXCESS -0.1 mEq/L (-9-1.8); ARTERIAL BLOOD GAS HCO3 23 mmol/L (19-24); ARTERIAL BLOOD GAS PO2 62 mm/Hg (80-95)
[2016-10-07 09:04] LABS: ALLEN TEST POS (POS); O2 ADMINISTRATION 6L
[2016-10-07 09:06] LABS: ARTERIAL BLOOD GAS pH 7.51 (7.35-7.45)
[2016-10-07 09:17] LABS: HEMATOCRIT 19.9 % (37-47)
[2016-10-07] MEDS: FUROSEMIDE INJ 40 MG in SYRINGE 0 ML IV SCH ×2 (09:28→17:31)
[2016-10-07] MEDS: DILTIAZEM HCL 120 MG EXT REL CAP PO SCH (09:29)
[2016-10-07] MEDS: CHOLECALCIFEROL 1000 INTER.UNIT TAB PO SCH (09:29)
[2016-10-07] MEDS: LISINOPRIL 20 MG TAB PO SCH (09:29)
[2016-10-07] MEDS: CYANOCOBALAMIN 500 MCG TAB (VIT B-12) PO SCH (09:30)
[2016-10-07] MEDS ORDERED: EPOETIN ALFA 20,000 UNITS/ML VIAL IV ONE (10:00)
[2016-10-07] MEDS ORDERED: PANTOprazole INJ 40 MG in SYRINGE 0 ML IV SCH ×2 (11:00→21:00)
[2016-10-07 12:34] LABS: CKMB/CK RATIO 6.2 (0-3.0)
--- NOTE | 2016-10-07 12:58 | Clinical Documentation Query ---
Dr. HERNANDEZ [place] : CLINICAL DOCUMENTATION QUERIES QUERY 1 OF 2 Patient is an 86 year old female admitted for the evaluation and treatment of acute respiratory failure, acute CHF exacerbation, and bilateral pneumonias. Documentation includes "chronic renal failure", not otherwise specified. Review of historical EMR yields documentation of CKD stage 3. Additionally, estimated GFR on admission was only 21 ml/min with a BUN and creatinine of 53 mg/dl and 2.10 mg/dl. Creatinine was only 1.40 mg/dl a week prior. She is being monitored with serial chemistries. In your clinical opinion is this patient being managed for: (X) Acute kidney failure on CKD stage 3 ( ) Other explanation of clinical findings (Please Explain) ( ) Unable to determine (Please Define) ( ) Need to Discuss ( ) Not Agree The medical record reflects the following clinical findings, treatment, and risk factors. Clinical Indicators: As above Treatment:serial chemistries Risk Factors: Acute CHF, IV Lasix administration QUERY 2 OF 2 Documentation includes "CHF exacerbation", not otherwise specified. Echocardiogram from 09/24/16 demonstrated normal biventricular systolic function. Risk factors for diastolic failure include hypertension, atrial fibrillation, and valvular disease. In your clinical opinion is this patient being managed for: (X) Acute on chronic diastolic (congestive) heart failure ( ) Other explanation of clinical findings (Please Explain) ( ) Unable to determine (Please Define) ( ) Need to Discuss ( ) Not Agree The medical record reflects the following clinical findings, treatment, and risk factors. Clinical Indicators: As above Treatment: Lasix with albumin, telemetry, 2D echocardiogram, Bi-PAP, serial cardiac enzymes, supplemental O2, I/O, daily weights, serial chemistries, Diltiazem, Lisinopril Risk Factors: hypertension, atrial fibrillation, and valvular disease. Please clarify and document your clinical opinion in the progress notes and discharge summary. Terms such as "probable", "suspected", "likely", "questionable", "possible", or "still to be ruled out" are acceptable. IF IN AGREEMENT, YOU MUST DOCUMENT ABOVE DIAGNOSTIC STATEMENT IN DAILY PROGRESS NOTES AND DISCHARGE SUMMARY. This document is not part of the patient's record. Thank You, Nolan López, RN [phone]
--- NOTE | 2016-10-07 13:01 | Clinical Documentation Query ---
DIPTI [facility] : CLINICAL DOCUMENTATION QUERIES QUERY 1 OF 2 Patient is an 86 year old female admitted for the evaluation and treatment of acute respiratory failure, acute CHF exacerbation, and bilateral pneumonias. Documentation includes "chronic renal failure", not otherwise specified. Review of historical EMR yields documentation of CKD stage 3. Additionally, estimated GFR on admission was only 21 ml/min with a BUN and creatinine of 53 mg/dl and 2.10 mg/dl. Creatinine was only 1.40 mg/dl a week prior. She is being monitored with serial chemistries. In your clinical opinion is this patient being managed for: ( X ) Acute kidney failure on CKD stage 3 ( ) Other explanation of clinical findings (Please Explain) ( ) Unable to determine (Please Define) ( ) Need to Discuss ( ) Not Agree The medical record reflects the following clinical findings, treatment, and risk factors. Clinical Indicators: As above Treatment:serial chemistries Risk Factors: Acute CHF, IV Lasix administration QUERY 2 OF 2 Documentation includes "CHF exacerbation", not otherwise specified. Echocardiogram from 09/24/16 demonstrated normal biventricular systolic function. Risk factors for diastolic failure include hypertension, atrial fibrillation, and valvular disease. In your clinical opinion is this patient being managed for: ( ) Acute on chronic diastolic (congestive) heart failure (X) Other explanation of clinical findings - acute decompensated heart failure in the setting of severe mitral regurgitation ( ) Unable to determine (Please Define) ( ) Need to Discuss ( ) Not Agree The medical record reflects the following clinical findings, treatment, and risk factors. Clinical Indicators: As above Treatment: Lasix with albumin, telemetry, 2D echocardiogram, Bi-PAP, serial cardiac enzymes, supplemental O2, I/O, daily weights, serial chemistries, Diltiazem, Lisinopril Risk Factors: hypertension, atrial fibrillation, and valvular disease. Please clarify and document your clinical opinion in the progress notes and discharge summary. Terms such as "probable", "suspected", "likely", "questionable", "possible", or "still to be ruled out" are acceptable. IF IN AGREEMENT, YOU MUST DOCUMENT ABOVE DIAGNOSTIC STATEMENT IN DAILY PROGRESS NOTES AND DISCHARGE SUMMARY. This document is not part of the patient's record. Thank You, Nolan López, RN [phone]
--- NOTE | 2016-10-07 15:11 | PULMONARY CONSULTATION ---
DATE OF CONSULTATION: 10/07/2016 TIME: 02:00 p.m. REPORT OF CONSULTATION: The patient was seen in room 236. She is an 86-year-old female who was hospitalized at [facility] from September 22 until September 29. She had hemoptysis at that time along with diffuse bilateral lung infiltrates. She was significantly anemic. She had severe shortness of breath. Dr. La was consulted at that time. The possibility of diffuse alveolar hemorrhage was discussed. She was too hypoxic to undergo bronchoscopy without mechanical ventilation. The patient has not wanted mechanical ventilation. She was home for about a week. She was sent home with steroids. The hemoptysis seemed to stop and resolved. It recurred a day or two before admission. She also started to have increasing shortness of breath. Yesterday, she went to her family doctor's office. She had been prescribed oxygen at home, but she did not want to take the oxygen out with her. In Dr. Cardenas's office, she was found to be quite hypoxic. Subsequently, she came to the Emergency Room. She was then admitted. She has been bringing up relatively small quantities of blood. She expectorated some blood when I was in her room. It was dark red and not at all fresh. It was clotted up somewhat. In the past day or two, she has had hemoptysis on at least 2 other occasions. It has not been large quantities and less than last time in general. Her x-rays, however, had never improved. In spite of all this, she looks fairly comfortable. She is not coughing all that frequently. She does not have chest pain now. She had 2 of her children with her at the time of this examination. The patient had never smoked. She did, however, work with other smokers and she feels she had a modest amount of secondhand smoke. She does not drink alcohol. The patient had problems with nephrotic syndrome in 2008. She was on dialysis for about 7 months. She cannot recall if she had any hemoptysis at that time. She is known to have valvular heart disease. PAST MEDICAL HISTORY: 1. Pulmonary embolism in 2007. 2. Nephrotic syndrome in 2008. 3. Childbirth x3. 4. Hypothyroidism. 5. Questionable seizure disorder. 6. Chronic anemia. 7. Urinary tract infections. 8. Prior CVA. 9. Osteoporosis. 10. CHF. 11. Coronary artery disease. 12. Hypertension. 13. Chronic kidney disease. 14. Atrial fibrillation. 15. Severe aortic stenosis. 16. Moderate tricuspid regurgitation. ALLERGIES: 1. AMOXICILLIN. 2. CARBAMAZEPINE. 3. DILANTIN. 4. LIPITOR. 5. LEVAQUIN. 6. TEGRETOL. FAMILY HISTORY: Father had sudden and was believed to have heart disease. He was in his 90s. Mother in her 90s and ultimately had a CVA. OCCUPATIONAL HISTORY: The patient worked at [employer] for many years. She did not have any exposure to dust, fumes or chemicals. REVIEW OF SYSTEMS: The patient's energy level is fair. She has not had any syncopal or near syncopal episodes. She is not complaining of visual complaints. Denies nasal congestion or coryza. Her appetite is just fair. The remainder of the review of systems is negative except as noted above. Ten systems were reviewed. PHYSICAL EXAMINATION: VITAL SIGNS: The patient is a pleasant 86-year-old female, who was cooperative, alert and oriented. She was in no distress. BMI is 21.2. Weight was 56 kilograms. Temperature is 36.6. She has not had any fevers since admission. HEENT: Pupils were reactive. Mouth exam showed blood in the pharynx and on the tongue. Unsure if this was from coughing some up, but surprisingly the patient could not feel it there. NECK: Palpation of the neck reveals no lymph nodes. She is wearing a Venturi mask at present. The neck veins were somewhat difficult to assess. HEART: Rate is 87 per minute. She has frequent extrasystoles. LUNGS: Lung field reveals rales diffusely bilaterally. Respiratory rate was 22 breaths per minute. Blood pressure 109/64. Oxygen saturation was 94% on a 50% Ventimask. ABDOMEN: Soft. Bowel sounds were present. There was no tenderness to palpation or definite mass. EXTREMITIES: Showed no cyanosis, clubbing or edema. Venous Doppler done of the legs showed no evidence of DVT. Chest x-ray showed what appears to be pulmonary edema. There is diffuse bilateral alveolar disease. A CAT scan of the chest showed diffuse bilateral airspace opacities, which have worsened compared with the prior CAT scan done on September 22. This was nonspecific. As noted, the differential diagnosis includes pulmonary edema, pulmonary hemorrhage, ARDS, or perhaps pneumonia. I believe the pneumonia is less likely with no fevers, no sputum other than the blood, and the fact that it has lasted since she was here during the last hospital stay. LABORATORY DATA: White count yesterday was 19.55, but today is down to 13.14. Hemoglobin yesterday was 7.9 and today is down to 6.6. The MCV, MCH, and MCHC were all normal. Coags were normal. Urine showed +2 protein, +2 glucose, and +1 blood. Blood gas done this morning showed a pH of 7.51 with a pCO2 of 30 and a pO2 of 62 done on 6 liters of oxygen. LDH was elevated at 496. AST, ALT and alkaline phosphatase were normal. Bilirubin was 1.6. BUN today was 51 and creatinine was 1.9. Sodium was 135, potassium 3.9, chloride 99 and carbon dioxide level 26. IMPRESSION: 1. Diffuse bilateral airspace disease -- I believe the most likely scenario was pulmonary edema. 2. Hemoptysis. 3. Respiratory failure with hypoxia. 4. Rule out diffuse alveolar hemorrhage. 5. Chronic renal insufficiency. The patient was here recently with similar events. She has very diffuse disease on her x-ray. I would try if possible to treat for valvular heart disease with some volume overload. Her echo from the last hospital stay did report severe calcific aortic stenosis along with moderate mitral regurgitation. I will try BiPAP tonight. She had CPAP last evening, but did not feel comfortable with it. Apparently, the mass did not fit. We have asked respiratory to find a better fit if possible. We will try her pressures at 12/6. She does not appear to be a candidate for bronchoscopy at present based upon her severe hypoxia. I am also not certain that a definitive diagnosis could be made short of doing an open biopsy. I would not advise that at present. We would hope to be able to decrease the vascular congestion in a conservative fashion. I have no objection to antibiotic therapy, although I am not convinced that that is the answered to the issue. I am still in favor of giving her steroids. She is now on methylprednisolone in higher doses. The nursing staff tells me the patient is now a DNR. Thank you for asking me to assist in her care. MARIAELENA
--- NOTE | 2016-10-07 15:35 | Nephrology Consultation ---
Nephrology Consultation Date & Providers Date of Consultation: Oct 07, 2016. Primary Care Provider: Eugenio Cardenas M.D. Referring Provider: Reason for Consultation Evaluation of acute on chronic kidney injury History of Present Illness Ms. Rivera is an 86 year old white female who is seen at the request of the [facility] hospitalist service for evaluation of acute on chronic kidney injury. 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 Patient required HD 06/18 - 10/18. She subsequently recovered kidney function and urinary albumin normalized. Her baseline creatinine had stabilized at 1.4. 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 Ms. Rivera was in her baseline state of health until 08/28. She was hospitalized due to CHF and profound anemia. She required transfusion w/ several units PRBC. Her respiratory status improved w/ diuretic therapy. Kidney function remained relatively stable. Laboratory studies for vasculitis were negative. Patient was discharged from the hospital ~ 9 days ago. Since then she has had progressive dyspnea. She is now readmitted w/ Hgb 6.6 and creatinine 2.1. CXR shows congestive change vs diffuse pulmonary hemorrhage. Past Medical/Surgical History Medical: # Idiopathic membranous GN - 2007 (resolved) # PE 10/17 # Aortic stenosis w/ history of CHF # Anemia # H/o seizure disorder # AIN due to Dilantin therapy # H/o L cerebellar CVA # Hypothyroidism # Osteoporosis # Hypercholesterolemia # Depression/anxiety disorder Allergies Coded Allergies: Doxycycline (Verified Allergy, Severe, RASH, 09/22/16) Trimethoprim (Verified Allergy, Severe, RASH, 09/22/16) Adhesives (Verified Allergy, Unknown, HAD RXN TO [employer]ES, ) Atorvastatin (Unverified Allergy, Unknown, UNKNOWN, 10/06/16) Carbamazepine (Verified Allergy, Unknown, 10/06/16) Hydantoins (Verified Allergy, Unknown, 09/22/16) Levofloxacin (Unverified Allergy, Unknown, UNKNOWN, 10/06/16) Penicillins (Verified Allergy, Unknown, AMOXIL, 10/07/16) has tolerated cefepime and ceftriaxone on previous admissions Phenytoin (Verified Allergy, Unknown, 10/06/16) Inpatient Medications Current Inpatient Medications Medications (Trade) Dose Ordered Sig/Phillip Route Start Time Stop Time Status Last Admin Dose Admin Ioversol (Optiray 320) 100 ml UD PRN IV 10/06/16 17:00 10/10/16 16:59 Acetaminophen (Tylenol Tab) 650 mg Q4H PRN PO 10/06/16 20:00 11/05/16 19:59 Cholecalciferol (Vitamin D Tab) 1,000 inter.unit DAILY PO 10/07/16 09:00 11/06/16 08:59 10/07/16 09:29 1,000 INTER.UNIT Cyanocobalamin (Vitamin B-12 Tab) 1,000 mcg DAILY PO 10/07/16 09:00 11/06/16 08:59 10/07/16 09:30 1,000 MCG Diltiazem HCl (TIAzac CAP) 240 mg DAILY PO 10/07/16 09:00 11/06/16 08:59 10/07/16 09:29 240 MG Levothyroxine Sodium (Synthroid Tab) 75 mcg DAILYBB PO 10/07/16 06:00 11/06/16 06:59 10/07/16 06:14 75 MCG Lisinopril (Zestril Tab) 20 mg DAILY PO 10/07/16 09:00 11/06/16 08:59 10/07/16 09:29 20 MG Pravastatin Sodium 20 mg 20 mg HS PO 10/06/16 21:00 11/05/16 20:59 10/06/16 21:39 20 MG Methylprednisolone Sodium Succinate/ Syringe (Solu-Medrol IV/ Syringe) 0.96 ml @ 1.5 mls/min Q6H IV 10/06/16 21:00 11/05/16 20:59 10/07/16 09:28 1.5 MLS/MIN Ondansetron HCl 4 mg 4 mg Q6H PRN IV 10/06/16 20:15 11/05/16 20:14 Acetaminophen 100 ml @ 400 mls/hr Q8H PRN IV 10/06/16 20:15 11/05/16 20:14 10/06/16 22:02 400 MLS/HR Azithromycin/ Dextrose (Zithromax IV/D5 250ml) 255 ml @ 125 mls/hr DAILY@2200 IV 10/06/16 22:00 10/13/16 21:59 10/06/16 21:19 125 MLS/HR Ipratropium [place] (Atrovent 0.02% 0.5MG/2.5ML Neb) 0.5 mg Q6R INH 10/06/16 21:00 11/05/16 20:59 10/07/16 13:53 0.5 MG Levalbuterol (Xopenex 1.25MG/ 0.5ML Neb) 1.25 mg Q6R INH 10/06/16 21:00 11/05/16 20:59 10/07/16 13:53 1.25 MG Ipratropium [place] (Atrovent 0.02% 0.5MG/2.5ML Neb) 0.5 mg Q2H PRN INH 10/06/16 20:30 11/05/16 20:29 Levalbuterol (Xopenex 1.25MG/ 0.5ML Neb) 1.25 mg Q2H PRN INH 10/06/16 20:30 11/05/16 20:29 Miscellaneous Information 1 ea 1 ea UD PRN N/A 10/06/16 22:00 11/05/16 21:59 Ertapenem 500 mg/ Sodium Chloride 55 ml @ 110 mls/hr Q24H IV 10/07/16 21:00 10/14/16 20:59 Furosemide 40 mg/ Syringe 4 ml @ 4 mls/min BID17 IV 10/07/16 09:00 11/06/16 08:59 10/07/16 09:28 4 MLS/MIN Pantoprazole Sodium/Syringe (Protonix Inj/ Syringe) 10 ml @ 5 mls/min BID@0900,2100 IV 10/07/16 21:00 11/06/16 20:59 Family History Heart disease Negative for CKD / ESRD Social History Smoking Status: Never Smoker Drug Use: none Marital Status: Housing Status: lives with family 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 . Lives alone. Son (Travis) is nearby and very supportive. Retired from [employer]. Never a smoker Review of Systems Constitutional: No fever Respiratory: + shortness of breath Cardiovascular: No chest pain Abdomen: No nausea, No vomiting Genitourinary - Female: No dysuria A complete review of systems was performed. Pertinent positives are noted above. All other systems are negative. Physical Exam Date Time Temp Pulse Resp B/P Pulse Ox O2 Delivery O2 Flow Rate FiO2 10/07/16 13:53 74 20 95 Venturi Mask 15.0 50 10/07/16 11:45 94 Venturi Mask 15.0 50 10/07/16 11:16 36.6 88 20 109/64 96 Venturi Mask 10/07/16 07:57 36.8 86 20 133/67 91 Nasal Cannula 6.0 10/07/16 07:30 94 Venturi Mask 15.0 50 10/07/16 07:07 76 20 96 Venturi Mask 15.0 50 10/07/16 04:30 36.5 67 16 123/67 97 CPAP 10/07/16 04:00 95 CPAP 40 10/07/16 02:14 69 95 40 10/07/16 02:12 69 22 95 BiPAP/CPAP 40 10/07/16 01:10 69 93 40 10/07/16 00:15 36.5 77 20 107/65 CPAP 40 10/06/16 23:29 66 16 127/67 97 10/06/16 22:54 66 20 133/63 97 CPAP 40 10/06/16 22:15 158/61 100 BiPAP 50 10/06/16 22:05 68 100 10/06/16 22:00 157/77 10/06/16 21:50 74 100 10/06/16 21:45 150/63 10/06/16 21:30 141/67 10/06/16 21:20 69 97 10/06/16 21:15 152/66 10/06/16 20:30 122/57 10/06/16 20:20 69 97 BiPAP 10/06/16 20:18 66 10/06/16 20:15 135/59 10/06/16 20:00 134/58 10/06/16 19:50 62 97 10/06/16 19:45 134/67 10/06/16 19:30 144/65 10/06/16 19:25 69 97 10/06/16 19:15 140/63 10/06/16 19:00 135/60 10/06/16 18:55 71 97 10/06/16 18:45 146/66 10/06/16 18:34 36.5 66 20 141/61 97 BiPAP 40 10/06/16 18:30 141/61 10/06/16 18:25 62 98 10/06/16 18:15 134/61 10/06/16 18:00 146/66 10/06/16 17:55 64 99 10/06/16 17:45 135/59 10/06/16 17:20 70 97 10/06/16 17:15 135/78 10/06/16 17:11 35.5 68 24 149/89 93 BiPAP 40 10/06/16 17:01 149/89 10/06/16 16:50 63 96 10/06/16 16:45 134/64 10/06/16 16:30 146/79 10/06/16 16:27 24 10/06/16 16:21 CPAP 40 10/06/16 16:20 66 91 10/06/16 16:15 72 10/06/16 16:15 144/72 10/06/16 16:15 144/72 10/06/16 16:09 68 91 10/06/16 16:09 68 91 10/06/16 15:57 BiPAP 10/06/16 15:48 173/70 10/06/16 15:48 173/70 10/06/16 15:45 92 CPAP 10/06/16 15:45 73 94 40 10/06/16 15:45 70 173/70 95 CPAP 10/06/16 15:45 73 30 94 CPAP 40 General Appearance: + thin (frail, chronically ill appearing) Head: atraumatic (temporal muscle wasting) Eyes: PERRL, EOMI Neck: no adenopathy Respiratory/Chest: + crackles (bilaterally) Cardiovascular: + tachycardia Abdomen/GI: normal bowel sounds, non tender, soft Extremities/Musculoskelatal: no calf tenderness, no pedal edema Neurologic/Psych: alert, oriented x 3 Laboratory Results Last 24 Hours Test 10/06/16 16:22 10/06/16 17:05 10/07/16 04:30 10/07/16 08:48 White Blood Count 19.55 K/uL 13.14 K/uL Red Blood Count 2.38 M/uL 2.07 M/uL Hemoglobin 7.9 g/dL 6.8 g/dL 6.6 g/dL Hematocrit 22.9 % 20.1 % 19.9 % Mean Corpuscular Volume 96.2 fL 97.1 fL Mean Corpuscular Hemoglobin 33.2 pg 32.9 pg Mean Corpuscular Hemoglobin Concent 34.5 g/dl 33.8 g/dl Platelet Count 183 K/uL 132 K/uL Mean Platelet Volume 8.7 fL 8.7 fL Neutrophils (%) (Auto) 92.2 % 95.3 % Lymphocytes (%) (Auto) 6.1 % 2.5 % Monocytes (%) (Auto) 0.4 % 1.7 % Eosinophils (%) (Auto) 0.0 % 0.0 % Basophils (%) (Auto) 0.1 % 0.0 % Neutrophils # (Auto) 18.04 K/uL 12.53 K/uL Lymphocytes # (Auto) 1.20 K/uL 0.33 K/uL Monocytes # (Auto) 0.07 K/uL 0.22 K/uL Eosinophils # (Auto) 0.00 K/uL 0.00 K/uL Basophils # (Auto) 0.01 K/uL 0.00 K/uL RDW Standard Deviation 75.9 fL 76.3 fL RDW Coefficient of Variation 22.1 % 22.2 % Immature Granulocyte % (Auto) 1.2 % 0.5 % Immature Granulocyte # (Auto) 0.23 K/uL 0.06 K/uL Polychromasia 1+ 1+ Anisocytosis PRESENT PRESENT Prothrombin Time 10.5 SECONDS Prothromb Time International Ratio 1.0 Activated Partial Thromboplast Time 21.4 SECONDS Partial Thromboplastin Ratio 0.8 Venous Blood pH 7.40 Venous Blood Partial Pressure CO2 37 mmHg Venous Blood Partial Pressure O2 28 mmHg Venous Blood HCO3 22 mmol/L Venous Blood Oxygen Saturation < 60.0 % Venous Blood Base Excess -2.3 mmol/L Sodium Level 131 mmol/L 135 mmol/L Potassium Level 4.5 mmol/L 3.9 mmol/L Chloride Level 97 mmol/L 99 mmol/L Carbon Dioxide Level 22 mmol/L 26 mmol/L Anion Gap 12.0 mmol/L 10.0 mmol/L Blood Urea Nitrogen 53 mg/dl 51 mg/dl Creatinine 2.10 mg/dl 1.90 mg/dl Est Creatinine Clear Calc Drug Dose 16.0 ml/min 17.7 ml/min Estimated GFR () 23.8 26.8 Estimated GFR (Non- 20.5 23.1 BUN/Creatinine Ratio 25.4 26.7 Random Glucose 248 mg/dl 141 mg/dl Calcium Level 7.9 mg/dl 7.5 mg/dl Total Bilirubin 1.8 mg/dl 1.6 mg/dl Aspartate Amino Transf (AST/SGOT) 32 U/L 28 U/L Alanine Aminotransferase (ALT/SGPT) 36 U/L 38 U/L Alkaline Phosphatase 56 U/L 49 U/L Troponin I 0.098 ng/ml 0.094 ng/ml Pro-B-Type Natriuretic Peptide 53611 pg/ml Total Protein 5.9 gm/dl 5.6 gm/dl Albumin 3.3 gm/dl 3.4 gm/dl Globulin 2.6 gm/dl Albumin/Globulin Ratio 1.3 Urine Color DK YELLOW Urine Appearance CLOUDY Urine pH 5.0 Urine Specific [place] 1.019 Urine Protein 2+ Urine Glucose (UA) 2+ Urine Ketones NEG Urine Occult Blood 1+ Urine Nitrite NEG Urine Bilirubin NEG Urine Urobilinogen NEG Urine Leukocyte Esterase NEG Urine WBC (Auto) 1-5 /hpf Urine RBC (Auto) 0-4 /hpf Urine Hyaline Casts (Auto) 5-10 /lpf Urine Epithelial Cells (Auto) >30 /lpf Urine Bacteria (Auto) NEG Basophilic Stippling 1+ Absolute Reticulocyte Count 0.22 10^6/uL Percent Reticulocyte Count 10.4 % Magnesium Level 2.7 mg/dl Iron Level 25 mcg/dl Total Iron Binding Capacity 266 mcg/dl Transferrin 204 mg/dl Transferrin % Saturation 9 % Ferritin 247.4 ng/ml Direct Bilirubin 0.5 mg/dl Total Creatine Kinase 43 U/L Creatine Kinase MB 3.4 ng/ml Creatine Kinase MB Ratio 7.9 Arterial Blood pH 7.51 Arterial Blood Partial Pressure CO2 30 mmHg Arterial Blood Partial Pressure O2 62 mm/Hg Arterial Blood HCO3 23 mmol/L Arterial Blood Oxygen Saturation 91.4 % Arterial Blood Base Excess -0.1 mEq/L Arterial Blood Gas Delivery 6L Melecio Test POS Vitamin B12 Level 1346 pg/mL Folate 23.54 ng/mL Test 10/07/16 11:55 10/07/16 15:00 Lactate Dehydrogenase 496 U/L Total Creatine Kinase 39 U/L Creatine Kinase MB 2.4 ng/ml Creatine Kinase MB Ratio 6.2 Troponin I 0.062 ng/ml Random Vancomycin Level 17.9 mcg/ml Impression (1) ANA PAULA (acute kidney injury) (2) Chronic kidney disease, stage 3 (3) Anemia (4) ARDS (adult respiratory distress syndrome) Patient admitted to the hospital w/ recurrent CHF and profound anemia. She has developed acute on chronic kidney injury due to hemodynamic insult. Need to assess for cause of recurrent anemia (GI blood loss vs. myelofibrosis vs. hemolytic anemia vs. pulmonary hemorrhage). Recommendations ACUTE KIDNEY INJURY: -- Improving with stabilization of blood pressure -- Monitor serial PRP -- Avoid known nephrotoxic agents -- MICHELLE, ANCA, anti-GBM Ab from last hospitalization were negative -- Will check urine sediment and UPCR CHRONIC KIDNEY DISEASE: -- Baseline creatinine has been 1.4 ANEMIA: -- Has iron deficiency despite recent blood transfusions -- Will order FOBT, iron studies, b12 and folate -- Will check LDH and haptoglobin -- Recommend transfusion to maintain Hgb > 10 PULMONARY INFILTRATES: -- Echocardiogram 09/25 reviewed today. Severe . Preserved LVEF -- Await Pulmonology input
[2016-10-07 16:02] LABS: HEMATOCRIT 20.7 % (37-47)
--- NOTE | 2016-10-07 16:06 | Palliative Care Consultation ---
Consultation Date of Consultation: Oct 07, 2016. Requesting Physician: Dr. Neri Attending Physician: Dr. Neri Reason for Consultation: Goals of care History of Present Illness This 86 year old female patient presented to the ED yesterday with c/o hemoptysis and persistent shortness of breath. She was just recently admitted to [facility] from September 22- with similar symptoms. At that time she was being treated for possible pneumonia, possible vasculitis, and had 3 units of packed red cells. She was discharged to home with no services as she was adamantly refusing any in-home care. She was doing okay until a couple days ago when she had increased SOB/YEE. She went to her PCP where her O2 sat was found to be in the 80s. Patient went home and applied oxygen via nasal cannula. She was not feeling any better and again coughed up some bloody sputum so she called 911. [address] showed "diffuse bilateral airspace opacities have modestly worsened from previous. The appearance is nonspecific, and differential considerations remain pulmonary edema, pneumonia, pulmonary hemorrhage, and/or ARDS. Clinical correlation will be required." Hgb today 6.8- blood has not arrived yet from [place] (patient has abnormal antibodies). Patient was initially requiring Bipap, now is on 50% oxygen mask on 15L O2. Reported by nursing that SpO2 in the 70s on room air, about 89% on 6LNC. Patient has other history listed below. Palliative care consulted to establish goals of care. I met with the patient, her son Travsi, and daughter Janine in room 236. Patient was in no distress but mildly tachypneic with oxygen mask on. She denies pain, just states that she was feeling very SOB and overall not well before she came in. We discussed her goals of care. Patient stated, "I'm 86 years old, I've lived a good life." Went on to say that she would not want resuscitation or intubation if her heart stops or she s tops breathing. she was still on the fence about a short-term elective intubation if needed, but she said if it wasn' t going to help or heal her, she wouldn't want it. Patient said she would never want to live on machines, in a vegetative state or be a burden to her family. She wants to continue current medical treatment, but a DNR/DNI. Her goal is to get back home but she understands this will all depend on her clinical course. Past Medical/Surgical History Medical History: Aortic Valve Disorder Atrial Fibrillation Chronic Kidney Disease, Unspecified Congestive Heart Failure Nos Coronary Atherosclerosis Of [place] Coronary Vessel Hypertension Nephrotic Syndrome Nec Osteoporosis Nos Personal Hx Of Tia,& Cerebral Infarction W/Out Res Deficits Renal Failure Tietze's Disease Social History Smoking Status: Never Smoker History of Alcohol Use: No Drug Use: none Marital Status: Housing Status: lives with family Occupation Status: retired Review of Systems Constitutional: + fatigue, No chills, No fever Respiratory: + cough, + dyspnea on exertion, + shortness of breath, No hemoptysis (none today) Cardiac: No chest pain, No edema Abdomen: No nausea, No pain, No vomiting Female : No problem reported (has Hu catheter) Psychiatric: No anxiety Allergies Coded Allergies: Doxycycline (Verified Allergy, Severe, RASH, 09/22/16) Trimethoprim (Verified Allergy, Severe, RASH, 09/22/16) Adhesives (Verified Allergy, Unknown, HAD RXN TO [employer] PATCHES, ) Atorvastatin (Unverified Allergy, Unknown, UNKNOWN, 10/06/16) Carbamazepine (Verified Allergy, Unknown, 10/06/16) Hydantoins (Verified Allergy, Unknown, 09/22/16) Levofloxacin (Unverified Allergy, Unknown, UNKNOWN, 10/06/16) Penicillins (Verified Allergy, Unknown, AMOXIL, 10/07/16) has tolerated cefepime and ceftriaxone on previous admissions Phenytoin (Verified Allergy, Unknown, 10/06/16) Medications Current Inpatient Medications Medications (Trade) Dose Ordered Sig/Phillip Route Start Time Stop Time Status Last Admin Dose Admin Ioversol (Optiray 320) 100 ml UD PRN IV 10/06/16 17:00 10/10/16 16:59 Acetaminophen (Tylenol Tab) 650 mg Q4H PRN PO 10/06/16 20:00 11/05/16 19:59 Cholecalciferol (Vitamin D Tab) 1,000 inter.unit DAILY PO 10/07/16 09:00 11/06/16 08:59 10/07/16 09:29 1,000 INTER.UNIT Cyanocobalamin (Vitamin B-12 Tab) 1,000 mcg DAILY PO 10/07/16 09:00 11/06/16 08:59 10/07/16 09:30 1,000 MCG Diltiazem HCl (TIAzac CAP) 240 mg DAILY PO 10/07/16 09:00 11/06/16 08:59 10/07/16 09:29 240 MG Levothyroxine Sodium (Synthroid Tab) 75 mcg DAILYBB PO 10/07/16 06:00 11/06/16 06:59 10/07/16 06:14 75 MCG Lisinopril (Zestril Tab) 20 mg DAILY PO 10/07/16 09:00 11/06/16 08:59 10/07/16 09:29 20 MG Pravastatin Sodium 20 mg 20 mg HS PO 10/06/16 21:00 11/05/16 20:59 10/06/16 21:39 20 MG Methylprednisolone Sodium Succinate/ Syringe (Solu-Medrol IV/ Syringe) 0.96 ml @ 1.5 mls/min Q6H IV 10/06/16 21:00 11/05/16 20:59 10/07/16 09:28 1.5 MLS/MIN Ondansetron HCl 4 mg 4 mg Q6H PRN IV 10/06/16 20:15 11/05/16 20:14 Acetaminophen 100 ml @ 400 mls/hr Q8H PRN IV 10/06/16 20:15 11/05/16 20:14 10/06/16 22:02 400 MLS/HR Azithromycin/ Dextrose (Zithromax IV/D5 250ml) 255 ml @ 125 mls/hr DAILY@2200 IV 10/06/16 22:00 10/13/16 21:59 10/06/16 21:19 125 MLS/HR Ipratropium Magnolia (Atrovent 0.02% 0.5MG/2.5ML Neb) 0.5 mg Q6R INH 10/06/16 21:00 11/05/16 20:59 10/07/16 13:53 0.5 MG Levalbuterol (Xopenex 1.25MG/ 0.5ML Neb) 1.25 mg Q6R INH 10/06/16 21:00 11/05/16 20:59 10/07/16 13:53 1.25 MG Ipratropium Magnolia (Atrovent 0.02% 0.5MG/2.5ML Neb) 0.5 mg Q2H PRN INH 10/06/16 20:30 11/05/16 20:29 Levalbuterol (Xopenex 1.25MG/ 0.5ML Neb) 1.25 mg Q2H PRN INH 10/06/16 20:30 11/05/16 20:29 Vancomycin HCl (Consult) 1 ea UD PRN N/A 10/06/16 20:45 11/05/16 20:44 Miscellaneous Information 1 ea 1 ea UD PRN N/A 10/06/16 22:00 11/05/16 21:59 Ertapenem 500 mg/ Sodium Chloride 55 ml @ 110 mls/hr Q24H IV 10/07/16 21:00 10/14/16 20:59 Furosemide 40 mg/ Syringe 4 ml @ 4 mls/min BID17 IV 10/07/16 09:00 11/06/16 08:59 10/07/16 09:28 4 MLS/MIN Pantoprazole Sodium/Syringe (Protonix Inj/ Syringe) 10 ml @ 5 mls/min BID@0900,2100 IV 10/07/16 21:00 11/06/16 20:59 Physical Exam Date Time Temp Pulse Resp B/P Pulse Ox O2 Delivery O2 Flow Rate FiO2 10/07/16 11:45 94 Venturi Mask 15.0 50 10/07/16 11:16 36.6 88 20 109/64 96 Venturi Mask 10/07/16 07:57 36.8 86 20 133/67 91 Nasal Cannula 6.0 10/07/16 07:30 94 Venturi Mask 15.0 50 10/07/16 07:07 76 20 96 Venturi Mask 15.0 50 10/07/16 04:30 36.5 67 16 123/67 97 CPAP 10/07/16 04:00 95 CPAP 40 10/07/16 02:14 69 95 40 10/07/16 02:12 69 22 95 BiPAP/CPAP 40 10/07/16 01:10 69 93 40 10/07/16 00:15 36.5 77 20 107/65 CPAP 40 10/06/16 23:29 66 16 127/67 97 10/06/16 22:54 66 20 133/63 97 CPAP 40 10/06/16 22:15 158/61 100 BiPAP 50 10/06/16 22:05 68 100 10/06/16 22:00 157/77 10/06/16 21:50 74 100 10/06/16 21:45 150/63 10/06/16 21:30 141/67 10/06/16 21:20 69 97 10/06/16 21:15 152/66 10/06/16 20:30 122/57 10/06/16 20:20 69 97 BiPAP 10/06/16 20:18 66 10/06/16 20:15 135/59 10/06/16 20:00 134/58 10/06/16 19:50 62 97 10/06/16 19:45 134/67 10/06/16 19:30 144/65 10/06/16 19:25 69 97 10/06/16 19:15 140/63 10/06/16 19:00 135/60 10/06/16 18:55 71 97 10/06/16 18:45 146/66 10/06/16 18:34 36.5 66 20 141/61 97 BiPAP 40 10/06/16 18:30 141/61 10/06/16 18:25 62 98 10/06/16 18:15 134/61 10/06/16 18:00 146/66 10/06/16 17:55 64 99 10/06/16 17:45 135/59 10/06/16 17:20 70 97 10/06/16 17:15 135/78 10/06/16 17:11 35.5 68 24 149/89 93 BiPAP 40 10/06/16 17:01 149/89 10/06/16 16:50 63 96 10/06/16 16:45 134/64 10/06/16 16:30 146/79 10/06/16 16:27 24 10/06/16 16:21 CPAP 40 10/06/16 16:20 66 91 10/06/16 16:15 72 10/06/16 16:15 144/72 10/06/16 16:15 144/72 10/06/16 16:09 68 91 10/06/16 16:09 68 91 10/06/16 15:57 BiPAP 10/06/16 15:48 173/70 10/06/16 15:48 173/70 10/06/16 15:45 92 CPAP 10/06/16 15:45 73 94 40 10/06/16 15:45 70 173/70 95 CPAP 10/06/16 15:45 73 30 94 CPAP 40 General Appearance: no apparent distress, + thin ENT: hearing grossly normal Neck: no JVD Respiratory: no accessory muscle use (mildly tachypenic), + decreased breath sounds Cardiovascular: regular rate, rhythm, no edema, + normal peripheral pulses Abdomen: normal bowel sounds, non tender, soft Neurologic/Psychiatric: alert, normal mood/affect, oriented x 3 Laboratory Results Last 24 Hours Test 10/06/16 16:22 10/06/16 17:05 10/07/16 04:30 10/07/16 08:48 White Blood Count 19.55 K/uL 13.14 K/uL Red Blood Count 2.38 M/uL 2.07 M/uL Hemoglobin 7.9 g/dL 6.8 g/dL 6.6 g/dL Hematocrit 22.9 % 20.1 % 19.9 % Mean Corpuscular Volume 96.2 fL 97.1 fL Mean Corpuscular Hemoglobin 33.2 pg 32.9 pg Mean Corpuscular Hemoglobin Concent 34.5 g/dl 33.8 g/dl Platelet Count 183 K/uL 132 K/uL Mean Platelet Volume 8.7 fL 8.7 fL Neutrophils (%) (Auto) 92.2 % 95.3 % Lymphocytes (%) (Auto) 6.1 % 2.5 % Monocytes (%) (Auto) 0.4 % 1.7 % Eosinophils (%) (Auto) 0.0 % 0.0 % Basophils (%) (Auto) 0.1 % 0.0 % Neutrophils # (Auto) 18.04 K/uL 12.53 K/uL Lymphocytes # (Auto) 1.20 K/uL 0.33 K/uL Monocytes # (Auto) 0.07 K/uL 0.22 K/uL Eosinophils # (Auto) 0.00 K/uL 0.00 K/uL Basophils # (Auto) 0.01 K/uL 0.00 K/uL RDW Standard Deviation 75.9 fL 76.3 fL RDW Coefficient of Variation 22.1 % 22.2 % Immature Granulocyte % (Auto) 1.2 % 0.5 % Immature Granulocyte # (Auto) 0.23 K/uL 0.06 K/uL Polychromasia 1+ 1+ Anisocytosis PRESENT PRESENT Prothrombin Time 10.5 SECONDS Prothromb Time International Ratio 1.0 Activated Partial Thromboplast Time 21.4 SECONDS Partial Thromboplastin Ratio 0.8 Venous Blood pH 7.40 Venous Blood Partial Pressure CO2 37 mmHg Venous Blood Partial Pressure O2 28 mmHg Venous Blood HCO3 22 mmol/L Venous Blood Oxygen Saturation < 60.0 % Venous Blood Base Excess -2.3 mmol/L Sodium Level 131 mmol/L 135 mmol/L Potassium Level 4.5 mmol/L 3.9 mmol/L Chloride Level 97 mmol/L 99 mmol/L Carbon Dioxide Level 22 mmol/L 26 mmol/L Anion Gap 12.0 mmol/L 10.0 mmol/L Blood Urea Nitrogen 53 mg/dl 51 mg/dl Creatinine 2.10 mg/dl 1.90 mg/dl Est Creatinine Clear Calc Drug Dose 16.0 ml/min 17.7 ml/min Estimated GFR () 23.8 26.8 Estimated GFR (Non- 20.5 23.1 BUN/Creatinine Ratio 25.4 26.7 Random Glucose 248 mg/dl 141 mg/dl Calcium Level 7.9 mg/dl 7.5 mg/dl Total Bilirubin 1.8 mg/dl 1.6 mg/dl Aspartate Amino Transf (AST/SGOT) 32 U/L 28 U/L Alanine Aminotransferase (ALT/SGPT) 36 U/L 38 U/L Alkaline Phosphatase 56 U/L 49 U/L Troponin I 0.098 ng/ml 0.094 ng/ml Pro-B-Type Natriuretic Peptide 53134 pg/ml Total Protein 5.9 gm/dl 5.6 gm/dl Albumin 3.3 gm/dl 3.4 gm/dl Globulin 2.6 gm/dl Albumin/Globulin Ratio 1.3 Urine Color DK YELLOW Urine Appearance CLOUDY Urine pH 5.0 Urine Specific [place] 1.019 Urine Protein 2+ Urine Glucose (UA) 2+ Urine Ketones NEG Urine Occult Blood 1+ Urine Nitrite NEG Urine Bilirubin NEG Urine Urobilinogen NEG Urine Leukocyte Esterase NEG Urine WBC (Auto) 1-5 /hpf Urine RBC (Auto) 0-4 /hpf Urine Hyaline Casts (Auto) 5-10 /lpf Urine Epithelial Cells (Auto) >30 /lpf Urine Bacteria (Auto) NEG Basophilic Stippling 1+ Absolute Reticulocyte Count 0.22 10^6/uL Percent Reticulocyte Count 10.4 % Magnesium Level 2.7 mg/dl Iron Level 25 mcg/dl Total Iron Binding Capacity 266 mcg/dl Transferrin 204 mg/dl Transferrin % Saturation 9 % Ferritin 247.4 ng/ml Direct Bilirubin 0.5 mg/dl Total Creatine Kinase 43 U/L Creatine Kinase MB 3.4 ng/ml Creatine Kinase MB Ratio 7.9 Arterial Blood pH 7.51 Arterial Blood Partial Pressure CO2 30 mmHg Arterial Blood Partial Pressure O2 62 mm/Hg Arterial Blood HCO3 23 mmol/L Arterial Blood Oxygen Saturation 91.4 % Arterial Blood Base Excess -0.1 mEq/L Arterial Blood Gas Delivery 6L Melecio Test POS Vitamin B12 Level 1346 pg/mL Folate 23.54 ng/mL Test 10/07/16 11:55 Lactate Dehydrogenase 496 U/L Total Creatine Kinase 39 U/L Creatine Kinase MB 2.4 ng/ml Creatine Kinase MB Ratio 6.2 Troponin I 0.062 ng/ml Random Vancomycin Level 17.9 mcg/ml Assessment & Plan Problem list: SOB/YEE Fatigue Anemia CHF exacerbation ?Alveolar hemorrhage Hx afib, renal insufficiency, CAD, aortic valve stenosis Goals of care (Z51.5) Palliative care plan: discussed with patient and family, Dr. Neri, Dr. Barkley, and Dr. Lagunas. -Patient is DNR/DNI per her wishes -Continue current medical treatment -Goal is to improve enough to get well enough to go to possibly short-term rehab then home. -Further discussion to be had regarding goals of care. Thank you for allowing me to care for this nice patient and her family. I will follow as needed.
--- NOTE | 2016-10-07 19:03 | DIAGNOSTIC IMAGING REPORT ---
CHEST ONE VIEW PORTABLE CLINICAL HISTORY: increasing hypoxia, shortness of breath dyspnea COMPARISON STUDY: 09/28/2016 FINDINGS: Unchanged study with diffuse bilateral parenchymal infiltrative change versus pulmonary edema. Mild stable cardiomegaly. Diaphragms smooth. IMPRESSION: Unchanging findings of pulmonary edema Electronically signed by: Kirill Escoto M.D. 10/07/2016 7:02 PM Dictated Date/Time: 10/07/2016 7:01 PM
[2016-10-07] MEDS: PANTOprazole INJ 40 MG in DEXTROSE 5% 100ML IV SCH ×2 (19:07→23:19)
[2016-10-07 19:32] LABS: ARTERIAL BLOOD GAS HCO3 22 mmol/L (19-24); ARTERIAL BLOOD GAS PO2 55 mm/Hg (80-95); ARTERIAL BLOOD GAS pH 7.51 (7.35-7.45)
[2016-10-07 19:33] LABS: ALLEN TEST POS (POS); ARTERIAL BLOOD GAS BASE EXCESS -0.9 mEq/L (-9-1.8); O2 ADMINISTRATION 15 L
--- NOTE | 2016-10-07 20:29 | Progress Note ---
Progress Note Date of Service Oct 07, 2016. (Prasanna Neri MD) Progress Note Patient has become more hypoxic throughout the day. Latest ABG PaO2 55 despite 15L FiO2 50% around 88-89% sats. Patient now on BiPAP 12/5 50% Discussed her worsening condition with herself with Dr Goff and Dr Barkley present. She was able to understand, weight up, make a decision and communicate the decision that she does not wish to be intubated if she was to become more hypoxic overnight. She understands that the ceiling of her treatment would therefore be her current BiPAP and if this treatment is unable to give her enough oxygen that would be the end of her life and we would treat her symptoms to be comfortable at the end of her life if she was to reach that point. Called son Travis Courtney on [phone]. Discussed increasing oxygen requirement throughout the day and therefore she has a very poor prognosis and potential to deteriorate and overnight. He understands she has made the decision not for resuscitation or intubation. He will call family members and may be in tonight. Plan - DNR/DNI - Continue x2 units Packed RBCs with H&H after units transfused + procalcitonin - Continue BiPAP FiO2 50% 12/5, ABG ordered for 21:00 - Patient discussed and handed over to night resident physician (Dr Goff) (Prasanna Neri MD) Resident Tracking Resident Involvement: Resident Care Provided Care Provided: Adult Hospital Medicine (Prasanna Neri MD) History Resident Physician Supervision Note: I was present with Dr. Neri during the history and exam. I discussed the case with the resident and agree with the findings and plan as documented in the note. Any exceptions or clarifications are listed here. Pt seen and examined at bedside. Pt feels somewhat short of breath comparable to time of discharge from previous admission. some episodes of mild BRB hemoptysis at home which has not recurred. Reports no lightheadedness, vision/ hearing changes, RENAE, CP, palpitations. Present with Dr. Neri during conversation with patient. When presented with course of potential destabilization after discussing pros/cons and potential outcomes including without ventilatory support, the patient wishes to forego any intubation in addition to her DNR order previously discussed. Dr. Neri has communicated this in detail with the patient's son via phone. (Eugenio Barkley MD) General Appearance: mild distress Respiratory: chest non-tender, respiratory distress (progressively worsening throughout the day finally on BiPAP), decreased breath sounds, rhonchi Cardiovascular: normal peripheral pulses, regular rate, rhythm, systolic murmur (4/6), other (2+ pitting of the LE) Gastrointestinal: normal bowel sounds, non tender, soft, no organomegaly Neurologic/Psychiatric: harness cutter II-XII nml as tested, no motor/sensory deficits, alert, normal mood/affect, oriented x 3 (Eugenio Barkley MD) Assessment/Plan Bilateral pulmonary edema w/ hemoptysis - pulmonary alveolar hemorrhage v. CHF exacerbation - pulm c/s. ventilatory support escalated to BiPAP. Continue steroids, azithromycin Acute on chronic CKD III, h/o AIN - avoid nephrotoxic interventions, careful fluid mgmt, t/c consult nephrology in AM Acute on chronic anemia s/p 3U PRBC - transfusing 2 UPRBC w/ more on the way for goal of > 9 GIB - Guiac +ve, PPI drip. GI c/s in AM CAD/Atrial fibrillation/aortic valve stenosis/CHF history/hypertension - Cardizem 120 mg by mouth twice a day Goals of care conversation - repeatedly no heroic measures and, when presented w / conversation noted, DNR/DNI (Eugenio Barkley MD)
[2016-10-07] MEDS ORDERED: ERTAPENEM IV 500 MG in SODIUM CHLORIDE 0.9% 50 ML IV SCH (21:00)
[2016-10-07] MEDS: PRAVASTATIN SOD 20 MG TAB PO SCH (21:51)
--- NOTE | 2016-10-07 21:59 | Progress Note ---
Progress Note Date of Service Oct 07, 2016. 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 Skin tags noted, large amount of soft stool in rectum, appears dark brown, not black or tar like. FOB sent and positive for blood. Patient started on pantoprazole drip and GI consulted for the morning. Patient placed NPO after midnight (except meds) just in case she needs EGD but given current clinical situation she is very unlikely to be a candidate for this. GI bleed most likely explanation of acute iron def. anemia. Antibiotics discussed with Dr Lagunas and presentation though not likely secondary to infectious cause therefore will stop these. Continue steroids for alveolar hemorrhage. Will consult cardiology regarding aortic stenosis and mitral regurg as possible underlying etiology causing pulmonary edema and hemorrhage, however no orthopnea goes against this diagnosis. Gentle diuresis continue with lasic IV 40 mg as producing negative balance with this, may need extra during blood transfusion but will not give prophylactically. BiPAP at night to help with possible pulmonary edema as per Dr Lagunas.
[2016-10-08] VITALS (21 sets, daily range): BP systolic 113–139; BP diastolic 46–79; PULSE 61–95; TEMP 36.3–36.9; O2SAT 93–98
[2016-10-08 01:12] LABS: ALLEN TEST POS (POS); ARTERIAL BLD GAS O2 SATURATION 94.8 % (90-95); ARTERIAL BLOOD GAS BASE EXCESS 1.1 mEq/L (-9-1.8); ARTERIAL BLOOD GAS HCO3 25 mmol/L (19-24); ARTERIAL BLOOD GAS PO2 77 mm/Hg (80-95); ARTERIAL BLOOD GAS pH 7.48 (7.35-7.45); O2 ADMINISTRATION BIPAP
[2016-10-08] MEDS: IPRATROPIUM BROMIDE NEB SOLN 0.02% 2.5 ML VIAL INH SCH ×4 (02:54→19:10)
[2016-10-08] MEDS: LEVALBUTEROL 1.25MG/0.5ML NEB INH SCH ×4 (02:54→19:10)
[2016-10-08] MEDS: METHYLPREDNISOLONE IV 60 MG in SYRINGE 0 ML IV SCH ×2 (03:18→09:00)
[2016-10-08 03:32] LABS: URINE BILIRUBIN NEG (NEG); URINE COLOR YELLOW; URINE EPITHELIAL CELL AUTO 0-5 /lpf (0-5); URINE NITRITE NEG (NEG); URINE SPECIFIC GRAVITY 1.008 (1.000-1.030); UROBILINOGEN NEG (NEG)
[2016-10-08 03:40] LABS: MANUAL MICROSCOPIC REQUIRED? NO; REVIEW REQ? NO
[2016-10-08 04:06] LABS: URINE PROTIEN/CREAT RATIO 0.8 (0-0.2); URINE TOTAL PROTEIN 17.3 mg/dl (0-11.9)
[2016-10-08] MEDS: PANTOprazole INJ 40 MG in DEXTROSE 5% 100ML IV SCH ×4 (04:36→20:44)
[2016-10-08] MEDS: LEVOTHYROXINE 75 MCG TAB PO SCH (06:35)
[2016-10-08 07:15] LABS: BUN/CREATININE RATIO 29.5 (10-20); CALCIUM 7.8 mg/dl (8.5-10.1); CREATININE 2.2 mg/dl (0.60-1.20); MAGNESIUM 2.8 mg/dl (1.8-2.4); POTASSIUM 3.1 mmol/L (3.5-5.1)
[2016-10-08 08:22] LABS: HEMATOCRIT 28.8 % (37-47); MEAN CELL VOLUME 91.4 fL (80-100); MEAN CORPUSCULAR HEMOGLOBIN 31.4 pg (25-34); MEAN CORPUSCULAR HGB CONC 34.4 g/dl (32-36); MEAN PLATELET VOLUME 9.5 fL (7.4-10.4); PLATELET COUNT 101 K/uL (130-400); RED BLOOD COUNT 3.15 M/uL (4.2-5.4); WHITE BLOOD COUNT 11.05 K/uL (4.8-10.8)
[2016-10-08 08:23] LABS: ANISOCYTOSIS PRESENT; BASO % 0.1 %; BASO ABS # 0.01 K/uL (0-0.2); COMPLETE YES; IG% 0.5 %; LYMPH % 2.4 %; LYMPH ABS # 0.26 K/uL (1.2-3.4); MONO % 2.3 %; NEUT % 94.7 %; POLYCHROMASIA 1+
--- NOTE | 2016-10-08 08:49 | Family Medicine Progress Note ---
Progress Note Date of Service Oct 08, 2016. Subjective Pt evaluation today including: conversation w/ patient, physical exam, chart review, lab review, review of studies, review of inpatient medication list Voiding: sweet catheter in place Feels better overnight after x2 blood infusions given. Oxygenation has also improved. Denies shortness of breath, chest pain, palpitations, orthopnea. Currently NPO awaiting GI consult although unlikely candidate for EGD given continued hypoxia and poor respiratory reserve. She reiterates that she does not wish to be transferred to another facility. All Other Systems: Reviewed and Negative Medications Current Inpatient Medications Medications (Trade) Dose Ordered Sig/Phillip Route Start Time Stop Time Status Last Admin Dose Admin Ioversol (Optiray 320) 100 ml UD PRN IV 10/06/16 17:00 10/10/16 16:59 Acetaminophen (Tylenol Tab) 650 mg Q4H PRN PO 10/06/16 20:00 11/05/16 19:59 Cholecalciferol (Vitamin D Tab) 1,000 inter.unit DAILY PO 10/07/16 09:00 11/06/16 08:59 10/07/16 09:29 1,000 INTER.UNIT Cyanocobalamin (Vitamin B-12 Tab) 1,000 mcg DAILY PO 10/07/16 09:00 11/06/16 08:59 10/07/16 09:30 1,000 MCG Diltiazem HCl (TIAzac CAP) 240 mg DAILY PO 10/07/16 09:00 11/06/16 08:59 10/07/16 09:29 240 MG Levothyroxine Sodium (Synthroid Tab) 75 mcg DAILYBB PO 10/07/16 06:00 11/06/16 06:59 10/08/16 06:35 75 MCG Lisinopril (Zestril Tab) 20 mg DAILY PO 10/07/16 09:00 11/06/16 08:59 10/07/16 09:29 20 MG Pravastatin Sodium 20 mg 20 mg HS PO 10/06/16 21:00 11/05/16 20:59 10/07/16 21:51 20 MG Methylprednisolone Sodium Succinate/ Syringe (Solu-Medrol IV/ Syringe) 0.96 ml @ 1.5 mls/min Q6H IV 10/06/16 21:00 11/05/16 20:59 10/08/16 03:18 1.5 MLS/MIN Ondansetron HCl 4 mg 4 mg Q6H PRN IV 10/06/16 20:15 11/05/16 20:14 Acetaminophen (Ofirmev Iv) 100 ml @ 400 mls/hr Q8H PRN IV 10/06/16 20:15 11/05/16 20:14 10/06/16 22:02 400 MLS/HR Ipratropium [place] (Atrovent 0.02% 0.5MG/2.5ML Neb) 0.5 mg Q6R INH 10/06/16 21:00 11/05/16 20:59 10/08/16 07:35 0.5 MG Levalbuterol (Xopenex 1.25MG/ 0.5ML Neb) 1.25 mg Q6R INH 10/06/16 21:00 11/05/16 20:59 10/08/16 07:35 1.25 MG Ipratropium [place] (Atrovent 0.02% 0.5MG/2.5ML Neb) 0.5 mg Q2H PRN INH 10/06/16 20:30 11/05/16 20:29 Levalbuterol (Xopenex 1.25MG/ 0.5ML Neb) 1.25 mg Q2H PRN INH 10/06/16 20:30 11/05/16 20:29 Miscellaneous Information 1 ea 1 ea UD PRN N/A 10/06/16 22:00 11/05/16 21:59 Furosemide 40 mg/ Syringe 4 ml @ 4 mls/min BID17 IV 10/07/16 09:00 11/06/16 08:59 10/07/16 17:31 4 MLS/MIN Pantoprazole Sodium/Dextrose (Protonix Inj/D5 100ml) 100 ml @ 20 mls/hr Q5H IV 10/07/16 18:30 11/06/16 18:29 10/08/16 04:36 20 MLS/HR Objective Vital Signs Date Time Temp Pulse Resp B/P Pulse Ox O2 Delivery O2 Flow Rate FiO2 10/08/16 07:35 77 95 40 10/08/16 07:35 77 16 95 BiPAP/CPAP 40 10/08/16 07:30 36.5 76 20 130/60 95 BiPAP 10/08/16 04:52 36.8 69 18 125/65 94 BiPAP 10/08/16 04:34 97 BiPAP 10/08/16 03:00 36.6 72 18 115/57 95 10/08/16 02:55 71 16 95 BiPAP/CPAP 40 10/08/16 02:30 36.8 74 18 114/55 94 10/08/16 02:00 36.8 61 18 116/57 93 10/08/16 01:26 36.3 72 17 119/48 95 10/08/16 01:00 36.3 70 17 113/58 94 10/08/16 00:29 36.6 74 18 114/46 97 10/08/16 00:00 36.5 74 18 120/53 96 10/08/16 00:00 97 BiPAP 10/07/16 23:44 72 98 50 10/07/16 23:41 36.4 76 18 112/54 96 10/07/16 23:33 36.5 73 18 115/53 96 10/07/16 23:09 36.3 70 16 114/56 99 10/07/16 22:29 36.5 80 17 105/54 92 10/07/16 22:00 36.7 81 17 104/56 92 10/07/16 21:36 36.2 90 17 102/50 92 10/07/16 21:06 36.2 90 18 104/46 91 10/07/16 20:40 36.2 95 18 104/46 98 10/07/16 20:00 97 BiPAP 10/07/16 19:54 37.6 76 18 105/52 99 10/07/16 19:49 36.6 76 22 90/49 91 Venturi Mask 15.0 10/07/16 19:39 36.5 60 18 102/51 97 10/07/16 19:32 78 91 50 10/07/16 19:23 36.4 71 18 85/51 88 10/07/16 19:21 78 16 87 Venturi Mask 15.0 50 10/07/16 19:16 36.8 76 24 85/48 85 15.0 10/07/16 16:00 92 Venturi Mask 15.0 50 10/07/16 15:56 36.2 81 20 105/51 92 Venturi Mask 15.0 50 10/07/16 13:53 74 20 95 Venturi Mask 15.0 50 10/07/16 11:45 94 Venturi Mask 15.0 50 10/07/16 11:16 36.6 88 20 109/64 96 Venturi Mask Physical Exam General Appearance: WD/WN, no apparent distress Eyes: normal inspection, EOMI Respiratory/Chest: chest non-tender, no respiratory distress, no accessory muscle use, + crackles (coarse throughout back but markedly improved since yesterday) Cardiovascular: regular rate, rhythm, + systolic murmur (throughout) Abdomen: normal bowel sounds, non tender, soft Neurologic/Psychiatric: alert, oriented x 3 Skin: normal color, warm/dry, no rash Laboratory Results 10/08/16 06:22 Red Blood Count 3.15, Mean Corpuscular Volume 91.4 #, Mean Corpuscular Hemoglobin 31.4, Mean Corpuscular Hemoglobin Concent 34.4, Mean Platelet Volume 9.5, Neutrophils (%) (Auto) 94.7, Lymphocytes (%) (Auto) 2.4, Monocytes (%) ( Auto) 2.3, Eosinophils (%) (Auto) 0.0, Basophils (%) (Auto) 0.1, Neutrophils # ( Auto) 10.47, Lymphocytes # (Auto) 0.26, Monocytes # (Auto) 0.25, Eosinophils # ( Auto) 0.00, Basophils # (Auto) 0.01 10/08/16 06:22 Test 10/07/16 11:55 10/07/16 15:00 10/08/16 00:55 10/08/16 02:58 Lactate Dehydrogenase 496 U/L (84-246) Total Creatine Kinase 39 U/L (26-192) Creatine Kinase MB 2.4 ng/ml (0.5-3.6) Creatine Kinase MB Ratio 6.2 (0-3.0) Troponin I 0.062 ng/ml (0-0.045) Random Vancomycin Level 17.9 mcg/ml Stool Occult Blood POSITIVE (NEGATIVE) Arterial Blood pH 7.48 (7.35-7.45) Arterial Blood Partial Pressure CO2 34 mmHg (35-46) Arterial Blood Partial Pressure O2 77 mm/Hg (80-95) Arterial Blood HCO3 25 mmol/L (19-24) Arterial Blood Oxygen Saturation 94.8 % (90-95) Arterial Blood Base Excess 1.1 mEq/L (-9-1.8) Arterial Blood Gas Delivery BIPAP Melecio Test POS (POS) Urine Color YELLOW Urine Appearance ERROR (CLEAR) Urine pH 5.0 (4.5-7.5) Urine Specific [place] 1.008 (1.000-1.030) Urine Protein NEG (NEG) Urine Glucose (UA) NEG (NEG) Urine Ketones NEG (NEG) Urine Occult Blood TRACE (NEG) Urine Nitrite NEG (NEG) Urine Bilirubin NEG (NEG) Urine Urobilinogen NEG (NEG) Urine Leukocyte Esterase NEG (NEG) Urine WBC (Auto) 1-5 /hpf (0-5) Urine RBC (Auto) 0-4 /hpf (0-4) Urine Hyaline Casts (Auto) 1-5 /lpf (0-5) Urine Epithelial Cells (Auto) 0-5 /lpf (0-5) Urine Bacteria (Auto) NEG (NEG) Urine Random Creatinine 21.0 mg/dl Urine Random Total Protein 17.3 mg/dl (0-11.9) Urine Protein/Creatinine Ratio 0.8 (0-0.2) Test 10/08/16 06:22 White Blood Count 11.05 K/uL (4.8-10.8) Red Blood Count 3.15 M/uL (4.2-5.4) Hemoglobin 9.9 g/dL (12.0-16.0) Hematocrit 28.8 % (37-47) Mean Corpuscular Volume 91.4 fL (80-100) Mean Corpuscular Hemoglobin 31.4 pg (25-34) Mean Corpuscular Hemoglobin Concent 34.4 g/dl (32-36) Platelet Count 101 K/uL (130-400) Mean Platelet Volume 9.5 fL (7.4-10.4) Neutrophils (%) (Auto) 94.7 % Lymphocytes (%) (Auto) 2.4 % Monocytes (%) (Auto) 2.3 % Eosinophils (%) (Auto) 0.0 % Basophils (%) (Auto) 0.1 % Neutrophils # (Auto) 10.47 K/uL (1.4-6.5) Lymphocytes # (Auto) 0.26 K/uL (1.2-3.4) Monocytes # (Auto) 0.25 K/uL (0.11-0.59) Eosinophils # (Auto) 0.00 K/uL (0-0.5) Basophils # (Auto) 0.01 K/uL (0-0.2) RDW Standard Deviation 65.0 fL (36.4-46.3) RDW Coefficient of Variation 20.7 % (11.5-14.5) Immature Granulocyte % (Auto) 0.5 % Immature Granulocyte # (Auto) 0.06 K/uL (0.00-0.02) Polychromasia 1+ Anisocytosis PRESENT Anion Gap 11.0 mmol/L (3-11) Est Creatinine Clear Calc Drug Dose 15.3 ml/min Estimated GFR () 22.5 Estimated GFR (Non- 19.4 BUN/Creatinine Ratio 29.5 (10-20) Calcium Level 7.8 mg/dl (8.5-10.1) Magnesium Level 2.8 mg/dl (1.8-2.4) Procalcitonin 0.58 ng/mL (0-0.5) Date/Time Source Procedure Growth Status 10/07/16 10:30 Nasal MRSA DNA Surveillance Screen - Final Specimen Negative for MRSA by DNA Probe Complete Assessment and Plan 86 yo female with recent admission from -29 September 2016 with anemia, acute hypoxic respiratory failure and hemoptysis. Possible acute alveolar hemorrhage, but unable to perform bronchoscopy on patient. investigated for vasculitis. Treated with steroids. Returned to the ER on with acute hypoxic respiratory failure and anemia. Acute hypoxic respiratory failure - alveolar hemorrhage vs. pulmonary edema - CT: acute alveolar hemorrhage vs. pulmonary edema - hemoptysis suggests some alveolar hemorrhage - appreciate pulmonology recommendations - will discuss antibiotics with pulmonology as unlikely this presentation is due to pneumonia. elevated WBC likely as a response to steroids (previously trending up during last admission and kept on prednisone as outpatient. Valvular heart disease with possible pulmonary edema - LVEF 55-60% with mildly dilated left atrium, moderate mitral regurgitation, mild mitral stenosis, severe calcific aortic valve stenosis - possibly heart failure causing hemorrhage and pulmonary edema - Reduce lasix to IV 40 mg daily given bump in Cr - Continue ACEi Elevated creatinine - nephrology consulted - baseline Cr 1.4, 2.1 on this admission - Monitor serial PRP - ANCA, anti-GBM Ab negative Anemia - Fecal occult blood positive - Hgb 9.9 s/p 2 units transfusion - suspect mostly from GI losses - elevated direct bili, elevated LDH, low haptoglobin, elevated retic count - possible hemolysis from aortic stenosis. Peripheral smear ordered. No clinical symptoms of AHTR. Non acute issues CAD/paroxysmal atrial fibrillation/hypertension - currently in normal sinus rhythm with frequent PACs and PVCs - Continue diltiazem controlled release 240 mg PO daily - no anticoagulation secondary to GI bleed Hx PE 2007 - not on anticoagulation secondary to GI bleed, LE dopplers clear on this admission Hx Nephrotic syndrome 2008 - proteinuria new since previous admission, nephrology consult Hypothyroidism - continue levothyroxine VTE prophylaxis - SCDs - chemical prophylaxis contraindicated secondary to anemia and hemoptysis Code - DNR, DNI Disposition - continue on telemetry, if Hgb stable tomorrow can likely be stepped down Resident Tracking Resident Involvement: Resident Care Provided Care Provided: Adult Hospital Medicine History Resident Physician Supervision Note: I was present with Dr. Neri during the history and exam. I discussed the case with the resident and agree with the findings and plan as documented in the note. Any exceptions or clarifications are listed here. Pt seen and examined at bedside. SOB controlled on 4LNC at time of examination. Some persistent coughing spells without hemoptysis. Fatigue greatly improved following transfusion. Reports no melena, hematochezia, abd pain, RENAE, lightheadedness, CP, palpitations. Family (daughter, grandson, g-grandchildren) present at time of re-evaluation in PM and discussed condition at length and reinforced prognosis and pitfalls of therapy. Questions answered to satisfaction, will pass along to pt's son. General Appearance: WD/WN, no apparent distress Respiratory: chest non-tender, no respiratory distress, decreased breath sounds (improved air movement), rales (b/l LL) Cardiovascular: normal peripheral pulses, regular rate, rhythm, systolic murmur (4/6), other (2+ pitting of the b/l LE) Gastrointestinal: normal bowel sounds, non tender, soft Assessment/Plan 86 y/o female h/o CKD, chronic anemia, CAD, , Afib, CHF, HTN and recent pulmonary hemorrhage presenting w/ acute on chronic anemia Acute on chronic anemia s/p 2U PRBC on 3.29.17 - Hgb 9.9 with improvement. Goal is 10. 2 units held. Bilateral pulmonary edema w/ hemoptysis - Pulmonology and cardiology aware and input appreciated. Reduced ventilatory support tolerated well. Steroids reduced to 40mg q6h. Continue diuresis while monitoring renal function Acute on chronic CKD III, h/o AIN - Nephrology aware and input appreciated. Avoid nephrotoxic medications when possible, trend BMP. GIB - Guiac +ve - Gastroenterology aware and input appreciated. No invasive testing at this time. PPI therapy to continue for 6 wks total. Precautions and sx of GIB/anemia reviewed CAD/Atrial fibrillation/aortic valve stenosis/CHF history/hypertension - Diltiazem 240mg daily, lisinopril, pravastatin Goals of care conversation - repeatedly no heroic measures and, when presented w / conversation noted, DNR/DNI
[2016-10-08] MEDS: FUROSEMIDE INJ 40 MG in SYRINGE 0 ML IV SCH ×2 (09:00→18:38)
[2016-10-08] MEDS: CYANOCOBALAMIN 500 MCG TAB (VIT B-12) PO SCH (09:01)
[2016-10-08] MEDS: DILTIAZEM HCL 120 MG EXT REL CAP PO SCH (09:01)
[2016-10-08] MEDS: CHOLECALCIFEROL 1000 INTER.UNIT TAB PO SCH (09:01)
[2016-10-08] MEDS: LISINOPRIL 20 MG TAB PO SCH (09:01)
--- NOTE | 2016-10-08 12:58 | PULMONARY PROGRESS NOTE ---
DATE: 10/08/2016 TIME: 12:20 p.m. SUBJECTIVE: The patient's breathing, she thinks is somewhat better. She has coughed up some dark blood twice since yesterday. It appears to be partially clotted. She is not having chest pain. HISTORY OF PRESENT ILLNESS: The patient is upset about being n.p.o. today. She has had a very good diuresis. Yesterday she had a total of 3700 mL of urine output. Today thus far, she has had approximately 2500 mL out. She is still desaturating however, when she takes her oxygen off. A GI consult was ordered. She is being held n.p.o. in the event she would need a scope. I do not think she is a candidate for a routine scope and could only have an emergency scope at this point in time. OBJECTIVE: GENERAL: The patient is comfortable. She is anxious today. VITAL SIGNS: Temperature 36.5. She is still wearing the 50% Venti mask. Heart rate is 69 per minute. The rhythm is irregular. Respiratory rate is 18 breaths per minute. Blood pressure 130/60. LUNGS: Lung meyer again reveal rales in the lower lung meyer posteriorly. Oxygen saturation is 98% on the 50% Venti mask. The patient did wear BiPAP last night and she said she slept well with it. ABDOMEN: Soft and nontender. EXTREMITIES: Showed no cyanosis, clubbing or edema. LABORATORY DATA: Review of her CBC done back on the shows that although her hemoglobin was low, the MCV, MCH, and MCHC are all normal. This could suggest chronic disease as the cause. Today, her hemoglobin is 9.9. She has had transfusions. Platelet count today is 101,000. Platelet count has been decreasing. Two days ago, was 183,000. This will need continued surveillance. It is notable that her stool for occult blood was positive yesterday. This could be because of an intrinsic GI problem or because she had been swallowing blood that she was coughing out. She does not think that she has vomited any blood. Blood gas this morning done on BiPAP showed a pH of 7.48 with a pCO2 of 34 and a pO2 of 77. It is notable that was done at 12:55 a.m. I did not find a reason why the blood gas was ordered at that time. Electrolytes show sodium 139, potassium 3.1, chloride 101, and bicarb 27. The BUN was 65 and yesterday had been 51. The creatinine is 2.2 and previously was 1.9. Thus, although she has diuresed very well, she has had some worsening of her baseline renal status. IMPRESSIONS: 1. Diffuse bilateral airspace disease -- differential includes pulmonary edema versus diffuse alveolar hemorrhage versus noncardiac pulmonary edema. 2. Hemoptysis, likely secondary to #1. 3. Respiratory failure with hypoxia. 4. Chronic renal insufficiency. COMMENTS AND RECOMMENDATIONS: Her respiratory status seems slightly improved but not dramatically improved. She has had a nice diuresis but with a slight increase in her BUN and creatinine. She is on at least moderate doses of steroids. These also could worsen her kidney status. I think it would be reasonable to decrease the Solu-Medrol down to 40 mg IV q. 6 hours. We will continue the BiPAP at night. We will check a chest x-ray for tomorrow. I do not feel she is a good candidate for endoscopy at this time until her x-ray showed some improvement and she has less shunt of her oxygen. Obviously in an emergency, anything could be done if necessary. The furosemide dose may need to be decreased to once daily. I will defer this to her hospitalist team as well as nephrology.
[2016-10-08] MEDS: METHYLPREDNISOLONE IV 40 MG in SYRINGE 0 ML IV SCH ×2 (14:17→20:47)
--- NOTE | 2016-10-08 15:22 | Gastrointestinal Consultation ---
Gastrointestinal Consultation Date of Consultation: Oct 08, 2016 Attending Physician: Dr. Neri Consulting Physician: Dr. Patterson/BRANDY Rodrigez Reason for Consultation: Anemia and heme positive stool History of Present Illness Patient is a 86 year old female with a history of chronic kidney disease, CAD, atrial fibrillation and CHF presenting to the ER with progressive shortness of breath and productive cough. She was noted be anemic at the time of admission with a hemoglobin of 7.9 and hematocrit of 22.9. She did have a drop in her H&H to 6.6 and 19.9 respectively. She was found to be heme positive on PE by Dr. Neri. Unfortunately, she is having difficulty maintaining good oxygenation. Per nursing, she will desaturate into the 70's when she takes off her supplemental oxygen. She is having mid 90 saturations with a 15 L nonrebreather mask. Patient was placed on a PPI ggt and given a blood transfusion. At the time of evaluation, she had received 2 of [address] Patterson has given the okay to advance diet as no plan for endoscopic evaluation. The patient denies any nausea or vomiting, abdominal pain or overt GIB. Past Medical/Surgical History Medical Problems: (1) Acute kidney injury Status: Acute (2) Anemia Status: Acute (3) Chronic anemia Status: Acute (4) Elevated troponin Status: Acute (5) Hypoxia Status: Acute Past Medical History: 1. Aortic valve disorder 2. Atrial fibrillation 3. Chronic kidney disease 4. CHF 5. CAD 6. HTN 7. Nephrotic syndrome 8. Osteoporosis 9. TIA and CVA 10. 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 Right hip surgery 2. Bilateral cataract surgery Family History Heart disease Negative for GI malignancy or IBD Social History Smoking Status: Never Smoker Drug Use: none Marital Status: Housing Status: lives alone Occupation Status: retired Allergies Coded Allergies: Doxycycline (Verified Allergy, Severe, RASH, 09/22/16) Trimethoprim (Verified Allergy, Severe, RASH, 09/22/16) Adhesives (Verified Allergy, Unknown, HAD RXN TO HOLTER MONITOR PATCHES, ) Atorvastatin (Unverified Allergy, Unknown, UNKNOWN, 10/06/16) Carbamazepine (Verified Allergy, Unknown, 10/06/16) Hydantoins (Verified Allergy, Unknown, 09/22/16) Levofloxacin (Unverified Allergy, Unknown, UNKNOWN, 10/06/16) Penicillins (Verified Allergy, Unknown, AMOXIL, 10/07/16) has tolerated cefepime and ceftriaxone on previous admissions Phenytoin (Verified Allergy, Unknown, 10/06/16) Current Medications Home Meds and Scripts Medications Dose Route/Sig Max Daily Dose Days Date Category Zestril (Lisinopril) 20 Mg Tab 20 Mg PO DAILY 10/06/16 Reported Pravachol (Pravastatin Sodium) 20 Mg Tab 20 Mg PO HS 10/06/16 Reported Oxygen Gas 2 Liters NA PRN 365 09/29/16 Rx Prednisone 20 Mg Tab 40 Mg PO DAILY 09/29/16 Rx Vitamin D3 (Cholecalciferol) 1,000 Unit Tab 1 Tab PO DAILY 30 09/22/16 Reported Synthroid (Levothyroxine Sodium) 75 Mcg Tab 75 Mcg PO DAILY 09/22/16 Reported Vitamin B-12 (Cyanocobalamin) 1,000 Mcg Tab 1,000 Mcg PO DAILY 09/22/16 Reported Protonix (Pantoprazole Sodium) 20 Mg Tab 20 Mg PO BID 09/22/16 Reported Tiazac (Diltiazem HCl) 240 Mg Capcr 240 Mg PO DAILY 06/12/14 Reported Review of Systems Constitutional: + fatigue, + weakness Eyes: No problem reported ENT: No problem reported Respiratory: + see HPI Cardiac: No problem reported Abdomen: + see HPI Musculoskeletal: No swelling Female : No problem reported Neuro: No problem reported Psych: No problem reported Endo: No problem reported Skin: No problem reported Physical Exam Date Time Temp Pulse Resp B/P Pulse Ox O2 Delivery O2 Flow Rate FiO2 10/08/16 14:42 78 16 98 Nasal Cannula 6.0 10/08/16 12:00 93 Venturi Mask 15.0 50 10/08/16 10:30 36.6 89 20 139/79 96 Room Air 10/08/16 08:00 98 Venturi Mask 15.0 50 10/08/16 07:35 77 95 40 10/08/16 07:35 77 16 95 BiPAP/CPAP 40 10/08/16 07:30 36.5 76 20 130/60 95 BiPAP 10/08/16 04:52 36.8 69 18 125/65 94 BiPAP 10/08/16 04:34 97 BiPAP 10/08/16 03:00 36.6 72 18 115/57 95 10/08/16 02:55 71 16 95 BiPAP/CPAP 40 10/08/16 02:30 36.8 74 18 114/55 94 10/08/16 02:00 36.8 61 18 116/57 93 10/08/16 01:26 36.3 72 17 119/48 95 10/08/16 01:00 36.3 70 17 113/58 94 10/08/16 00:29 36.6 74 18 114/46 97 10/08/16 00:00 36.5 74 18 120/53 96 10/08/16 00:00 97 BiPAP 10/07/16 23:44 72 98 50 10/07/16 23:41 36.4 76 18 112/54 96 10/07/16 23:33 36.5 73 18 115/53 96 10/07/16 23:09 36.3 70 16 114/56 99 10/07/16 22:29 36.5 80 17 105/54 92 10/07/16 22:00 36.7 81 17 104/56 92 10/07/16 21:36 36.2 90 17 102/50 92 10/07/16 21:06 36.2 90 18 104/46 91 10/07/16 20:40 36.2 95 18 104/46 98 10/07/16 20:00 97 BiPAP 10/07/16 19:54 37.6 76 18 105/52 99 10/07/16 19:49 36.6 76 22 90/49 91 Venturi Mask 15.0 10/07/16 19:39 36.5 60 18 102/51 97 10/07/16 19:32 78 91 50 10/07/16 19:23 36.4 71 18 85/51 88 10/07/16 19:21 78 16 87 Venturi Mask 15.0 50 10/07/16 19:16 36.8 76 24 85/48 85 15.0 10/07/16 16:00 92 Venturi Mask 15.0 50 10/07/16 15:56 36.2 81 20 105/51 92 Venturi Mask 15.0 50 General Appearance: no apparent distress Eyes: EOMI ENT: hearing grossly normal Respiratory/Chest: + rales (bases) Cardiovascular: + irregularly irregular Abdomen: normal bowel sounds, non tender, soft Extremities: no pedal edema Neurologic/Psych: alert, normal mood/affect, oriented x 3 Skin: warm/dry Laboratory Results Last 24 Hours Test 10/07/16 15:20 10/07/16 17:10 10/08/16 00:55 10/08/16 02:58 Hemoglobin 6.9 g/dL Hematocrit 20.7 % Arterial Blood pH 7.51 7.48 Arterial Blood Partial Pressure CO2 28 mmHg 34 mmHg Arterial Blood Partial Pressure O2 55 mm/Hg 77 mm/Hg Arterial Blood HCO3 22 mmol/L 25 mmol/L Arterial Blood Oxygen Saturation % 94.8 % Arterial Blood Base Excess -0.9 mEq/L 1.1 mEq/L Arterial Blood Gas Delivery 15 L BIPAP Melecio Test POS POS Urine Color YELLOW Urine Appearance ERROR Urine pH 5.0 Urine Specific [place] 1.008 Urine Protein NEG Urine Glucose (UA) NEG Urine Ketones NEG Urine Occult Blood TRACE Urine Nitrite NEG Urine Bilirubin NEG Urine Urobilinogen NEG Urine Leukocyte Esterase NEG Urine WBC (Auto) 1-5 /hpf Urine RBC (Auto) 0-4 /hpf Urine Hyaline Casts (Auto) 1-5 /lpf Urine Epithelial Cells (Auto) 0-5 /lpf Urine Bacteria (Auto) NEG Urine Random Creatinine 21.0 mg/dl Urine Random Total Protein 17.3 mg/dl Urine Protein/Creatinine Ratio 0.8 Test 10/08/16 06:22 White Blood Count 11.05 K/uL Red Blood Count 3.15 M/uL Hemoglobin 9.9 g/dL Hematocrit 28.8 % Mean Corpuscular Volume 91.4 fL Mean Corpuscular Hemoglobin 31.4 pg Mean Corpuscular Hemoglobin Concent 34.4 g/dl Platelet Count 101 K/uL Mean Platelet Volume 9.5 fL Neutrophils (%) (Auto) 94.7 % Lymphocytes (%) (Auto) 2.4 % Monocytes (%) (Auto) 2.3 % Eosinophils (%) (Auto) 0.0 % Basophils (%) (Auto) 0.1 % Neutrophils # (Auto) 10.47 K/uL Lymphocytes # (Auto) 0.26 K/uL Monocytes # (Auto) 0.25 K/uL Eosinophils # (Auto) 0.00 K/uL Basophils # (Auto) 0.01 K/uL RDW Standard Deviation 65.0 fL RDW Coefficient of Variation 20.7 % Immature Granulocyte % (Auto) 0.5 % Immature Granulocyte # (Auto) 0.06 K/uL Polychromasia 1+ Anisocytosis PRESENT Sodium Level 139 mmol/L Potassium Level 3.1 mmol/L Chloride Level 101 mmol/L Carbon Dioxide Level 27 mmol/L Anion Gap 11.0 mmol/L Blood Urea Nitrogen 65 mg/dl Creatinine 2.20 mg/dl Est Creatinine Clear Calc Drug Dose 15.3 ml/min Estimated GFR () 22.5 Estimated GFR (Non- 19.4 BUN/Creatinine Ratio 29.5 Random Glucose 181 mg/dl Calcium Level 7.8 mg/dl Magnesium Level 2.8 mg/dl Procalcitonin 0.58 ng/mL Impression Patient is a 86 year old female with profound anemia and heme positive stool in the setting of shortness of breath and respiratory failure. Plan 1. Continue PPI therapy for GI prophylaxis. 2. Diet has been advanced. 3. No plan for invasive GI work up of anemia due to underlying respiratory status. 4. Transfuse to ~10 due to underlying cardiac medical co-morbidities. Thank you for allowing us to participate in the care of this patient. If you have any questions or concerns, please do not hesitate to contact us. Agree with BRANDY Rodrigez as above Abd: Soft, NT, ND, +BS Continue PPI therapy No plans for invasive workup due to patient's comorbid medical conditions.
--- NOTE | 2016-10-08 16:55 | Nephrology Progress Note ---
Nephrology Progress Note Date of Service Oct 08, 2016. Chief Complaint Follow up evaluation of acute on chronic kidney injury Subjective Ms. Rivera was seen & examined in the PCU this morning. She remains dyspneic and is on 50% venturi mask. She denies angina, pleurisy, nausea or leg edema. She has had no hemoptysis overnight. Her son Travis was updated via telephone. The family is considering transfer to a tertiary care facility Review of Systems Constitutional: No fever Cardiovascular: No chest pain Respiratory: + dyspnea at rest Abdomen: No nausea, No pain Extremities: No leg edema A complete review of systems was performed. Pertinent positives are noted above. All other systems are negative. Vital Signs Last 8 Hrs Date Time Temp Pulse Resp B/P Pulse Ox O2 Delivery O2 Flow Rate FiO2 10/08/16 14:42 78 16 98 Nasal Cannula 6.0 10/08/16 12:00 93 Venturi Mask 15.0 50 10/08/16 10:30 36.6 89 20 139/79 96 Room Air I & O 24-Hour Column 10/08/16 08:00 Intake Total 1550 ml Output Total 2850 ml Balance -1300 ml Last Recorded Weight Weight (Kilograms): 55.600 Physical Exam General Appearance: + mild distress Head: atraumatic Eyes: PERRL Neck: no adenopathy Respiratory/Chest: + crackles Cardiovascular: regular rate, rhythm Abdomen/GI: normal bowel sounds, non tender, soft Extremities/Musculoskelatal: no calf tenderness, no pedal edema Neurologic/Psych: alert, oriented x 3 Family History Heart disease Negative for CKD / ESRD Social History Drug Use: none Marital Status: Housing Status: lives with family 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 . Lives alone. Son (Travis) is nearby and very supportive. Retired from [employer]. Never a smoker Laboratory Results Past 24 Hours 10/08/16 06:22 Red Blood Count 3.15, Mean Corpuscular Volume 91.4 #, Mean Corpuscular Hemoglobin 31.4, Mean Corpuscular Hemoglobin Concent 34.4, Mean Platelet Volume 9.5, Neutrophils (%) (Auto) 94.7, Lymphocytes (%) (Auto) 2.4, Monocytes (%) ( Auto) 2.3, Eosinophils (%) (Auto) 0.0, Basophils (%) (Auto) 0.1, Neutrophils # ( Auto) 10.47, Lymphocytes # (Auto) 0.26, Monocytes # (Auto) 0.25, Eosinophils # ( Auto) 0.00, Basophils # (Auto) 0.01 10/08/16 06:22 Test 10/07/16 17:10 10/08/16 00:55 10/08/16 02:58 10/08/16 06:22 Arterial Blood pH 7.51 (7.35-7.45) 7.48 (7.35-7.45) Arterial Blood Partial Pressure CO2 28 mmHg (35-46) 34 mmHg (35-46) Arterial Blood Partial Pressure O2 55 mm/Hg (80-95) 77 mm/Hg (80-95) Arterial Blood HCO3 22 mmol/L (19-24) 25 mmol/L (19-24) Arterial Blood Oxygen Saturation % (90-95) 94.8 % (90-95) Arterial Blood Base Excess -0.9 mEq/L (-9-1.8) 1.1 mEq/L (-9-1.8) Arterial Blood Gas Delivery 15 L BIPAP Melecio Test POS (POS) POS (POS) Urine Color YELLOW Urine Appearance ERROR (CLEAR) Urine pH 5.0 (4.5-7.5) Urine Specific [place] 1.008 (1.000-1.030) Urine Protein NEG (NEG) Urine Glucose (UA) NEG (NEG) Urine Ketones NEG (NEG) Urine Occult Blood TRACE (NEG) Urine Nitrite NEG (NEG) Urine Bilirubin NEG (NEG) Urine Urobilinogen NEG (NEG) Urine Leukocyte Esterase NEG (NEG) Urine WBC (Auto) 1-5 /hpf (0-5) Urine RBC (Auto) 0-4 /hpf (0-4) Urine Hyaline Casts (Auto) 1-5 /lpf (0-5) Urine Epithelial Cells (Auto) 0-5 /lpf (0-5) Urine Bacteria (Auto) NEG (NEG) Urine Random Creatinine 21.0 mg/dl Urine Random Total Protein 17.3 mg/dl (0-11.9) Urine Protein/Creatinine Ratio 0.8 (0-0.2) White Blood Count 11.05 K/uL (4.8-10.8) Red Blood Count 3.15 M/uL (4.2-5.4) Hemoglobin 9.9 g/dL (12.0-16.0) Hematocrit 28.8 % (37-47) Mean Corpuscular Volume 91.4 fL (80-100) Mean Corpuscular Hemoglobin 31.4 pg (25-34) Mean Corpuscular Hemoglobin Concent 34.4 g/dl (32-36) Platelet Count 101 K/uL (130-400) Mean Platelet Volume 9.5 fL (7.4-10.4) Neutrophils (%) (Auto) 94.7 % Lymphocytes (%) (Auto) 2.4 % Monocytes (%) (Auto) 2.3 % Eosinophils (%) (Auto) 0.0 % Basophils (%) (Auto) 0.1 % Neutrophils # (Auto) 10.47 K/uL (1.4-6.5) Lymphocytes # (Auto) 0.26 K/uL (1.2-3.4) Monocytes # (Auto) 0.25 K/uL (0.11-0.59) Eosinophils # (Auto) 0.00 K/uL (0-0.5) Basophils # (Auto) 0.01 K/uL (0-0.2) RDW Standard Deviation 65.0 fL (36.4-46.3) RDW Coefficient of Variation 20.7 % (11.5-14.5) Immature Granulocyte % (Auto) 0.5 % Immature Granulocyte # (Auto) 0.06 K/uL (0.00-0.02) Polychromasia 1+ Anisocytosis PRESENT Anion Gap 11.0 mmol/L (3-11) Est Creatinine Clear Calc Drug Dose 15.3 ml/min Estimated GFR () 22.5 Estimated GFR (Non- 19.4 BUN/Creatinine Ratio 29.5 (10-20) Calcium Level 7.8 mg/dl (8.5-10.1) Magnesium Level 2.8 mg/dl (1.8-2.4) Procalcitonin 0.58 ng/mL (0-0.5) Allergies Coded Allergies: Doxycycline (Verified Allergy, Severe, RASH, 09/22/16) Trimethoprim (Verified Allergy, Severe, RASH, 09/22/16) Adhesives (Verified Allergy, Unknown, HAD RXN TO HOLTER MONITOR PATCHES, ) Atorvastatin (Unverified Allergy, Unknown, UNKNOWN, 10/06/16) Carbamazepine (Verified Allergy, Unknown, 10/06/16) Hydantoins (Verified Allergy, Unknown, 09/22/16) Levofloxacin (Unverified Allergy, Unknown, UNKNOWN, 10/06/16) Penicillins (Verified Allergy, Unknown, AMOXIL, 10/07/16) has tolerated cefepime and ceftriaxone on previous admissions Phenytoin (Verified Allergy, Unknown, 10/06/16) Medications Current Inpatient Medications Medications (Trade) Dose Ordered Sig/Phillip Route Start Time Stop Time Status Last Admin Dose Admin Ioversol (Optiray 320) 100 ml UD PRN IV 10/06/16 17:00 10/10/16 16:59 Acetaminophen (Tylenol Tab) 650 mg Q4H PRN PO 10/06/16 20:00 11/05/16 19:59 Cholecalciferol (Vitamin D Tab) 1,000 inter.unit DAILY PO 10/07/16 09:00 11/06/16 08:59 10/08/16 09:01 1,000 INTER.UNIT Cyanocobalamin (Vitamin B-12 Tab) 1,000 mcg DAILY PO 10/07/16 09:00 11/06/16 08:59 10/08/16 09:01 1,000 MCG Diltiazem HCl (TIAzac CAP) 240 mg DAILY PO 10/07/16 09:00 11/06/16 08:59 10/08/16 09:01 240 MG Levothyroxine Sodium (Synthroid Tab) 75 mcg DAILYBB PO 10/07/16 06:00 11/06/16 06:59 10/08/16 06:35 75 MCG Lisinopril (Zestril Tab) 20 mg DAILY PO 10/07/16 09:00 11/06/16 08:59 10/08/16 09:01 20 MG Pravastatin Sodium (Pravachol Tab) 20 mg HS PO 10/06/16 21:00 11/05/16 20:59 10/07/16 21:51 20 MG Ondansetron HCl 4 mg 4 mg Q6H PRN IV 10/06/16 20:15 11/05/16 20:14 Acetaminophen (Ofirmev Iv) 100 ml @ 400 mls/hr Q8H PRN IV 10/06/16 20:15 11/05/16 20:14 10/06/16 22:02 400 MLS/HR Ipratropium [place] (Atrovent 0.02% 0.5MG/2.5ML Neb) 0.5 mg Q6R INH 10/06/16 21:00 11/05/16 20:59 10/08/16 14:42 0.5 MG Levalbuterol (Xopenex 1.25MG/ 0.5ML Neb) 1.25 mg Q6R INH 10/06/16 21:00 11/05/16 20:59 10/08/16 14:42 1.25 MG Ipratropium [place] (Atrovent 0.02% 0.5MG/2.5ML Neb) 0.5 mg Q2H PRN INH 10/06/16 20:30 11/05/16 20:29 Levalbuterol 1.25 mg 1.25 mg Q2H PRN INH 10/06/16 20:30 11/05/16 20:29 Furosemide 40 mg/ Syringe 4 ml @ 4 mls/min BID17 IV 10/07/16 09:00 11/06/16 08:59 10/08/16 09:00 4 MLS/MIN Pantoprazole Sodium 40 mg/ Dextrose 100 ml @ 20 mls/hr Q5H IV 10/07/16 18:30 11/06/16 18:29 10/08/16 14:17 20 MLS/HR Methylprednisolone Sodium Succinate/ Syringe (Solu-Medrol IV/ Syringe) 0.64 ml @ 1.5 mls/min Q6H IV 10/08/16 15:00 11/07/16 14:59 10/08/16 14:17 1.5 MLS/MIN Impression (1) ANA PAULA (acute kidney injury) (2) Chronic kidney disease, stage 3 (3) Anemia (4) ARDS (adult respiratory distress syndrome) Patient admitted to the hospital w/ recurrent CHF and profound anemia. She has developed acute on chronic kidney injury due to hemodynamic insult. Need to assess for cause of recurrent anemia (GI blood loss vs. myelofibrosis vs. hemolytic anemia vs. pulmonary hemorrhage). Recommendations ACUTE KIDNEY INJURY: -- Creatinine is relatively stable at 2.2 -- Monitor serial PRP -- Avoid known nephrotoxic agents -- MICHELLE, ANCA, anti-GBM Ab from last hospitalization were negative -- Urine sediment is benign. UPCR was 0.8 CHRONIC KIDNEY DISEASE: -- Baseline creatinine has been 1.4 ANEMIA: -- Has iron deficiency despite recent blood transfusions -- FOBT is + -- B12 and folate are normal -- Patient has high LDH w/ low haptoglobin -- Recommend transfusion to maintain Hgb > 10 -- Consider hematology evaluation PULMONARY INFILTRATES: -- Echocardiogram 09/25 reviewed today. Severe . Preserved LVEF -- Pulmonology notes reviewed today OTHER: -- Consider transfer to tertiary care facility for bronchoscopy, GI & hematology evaluation
[2016-10-08] MEDS ORDERED: POTASSIUM CHLORIDE 20 MEQ TABCR PO ONE (19:30)
[2016-10-08] MEDS: PRAVASTATIN SOD 20 MG TAB PO SCH (20:45)
[2016-10-09] VITALS (11 sets, daily range): BP systolic 112–129; BP diastolic 45–79; PULSE 53–73; TEMP 36.4–36.7; O2SAT 93–100
[2016-10-09] MEDS: PANTOprazole INJ 40 MG in DEXTROSE 5% 100ML IV SCH ×5 (00:27→19:46)
[2016-10-09] MEDS: LEVALBUTEROL 1.25MG/0.5ML NEB INH SCH ×4 (02:31→19:27)
[2016-10-09] MEDS: IPRATROPIUM BROMIDE NEB SOLN 0.02% 2.5 ML VIAL INH SCH ×4 (02:31→19:27)
[2016-10-09] MEDS: METHYLPREDNISOLONE IV 40 MG in SYRINGE 0 ML IV SCH ×3 (03:48→17:13)
[2016-10-09] MEDS: LEVOTHYROXINE 75 MCG TAB PO SCH (06:34)
[2016-10-09 07:27] LABS: HEMATOCRIT 28.9 % (37-47); MEAN CORPUSCULAR HEMOGLOBIN 31.5 pg (25-34); MEAN CORPUSCULAR HGB CONC 34.3 g/dl (32-36); RED BLOOD COUNT 3.14 M/uL (4.2-5.4); WHITE BLOOD COUNT 10.06 K/uL (4.8-10.8)
[2016-10-09] MEDS: DILTIAZEM HCL 120 MG EXT REL CAP PO SCH (07:58)
[2016-10-09] MEDS: FUROSEMIDE 40 MG TAB PO SCH (07:58)
[2016-10-09 07:59] LABS: CALCIUM 7.9 mg/dl (8.5-10.1); CREATININE 2.2 mg/dl (0.60-1.20); MAGNESIUM 2.7 mg/dl (1.8-2.4); POTASSIUM 2.9 mmol/L (3.5-5.1)
[2016-10-09] MEDS: CHOLECALCIFEROL 1000 INTER.UNIT TAB PO SCH (08:00)
[2016-10-09] MEDS: LISINOPRIL 20 MG TAB PO SCH (08:00)
[2016-10-09] MEDS: CYANOCOBALAMIN 500 MCG TAB (VIT B-12) PO SCH (08:00)
[2016-10-09 08:07] LABS: ANISOCYTOSIS PRESENT; IG% 0.3 %; LYMPH % 2.3 %; LYMPH ABS # 0.23 K/uL (1.2-3.4); MEAN PLATELET VOLUME 9.1 fL (7.4-10.4); MONO % 2.7 %; NEUT % 94.7 %; PLATELET COUNT 90 K/uL (130-400); PLT ESTIMATE DECREASED; POLYCHROMASIA 1+
--- NOTE | 2016-10-09 08:31 | DIAGNOSTIC IMAGING REPORT ---
SINGLE VIEW CHEST CLINICAL HISTORY: Pulmonary edema. FINDINGS: An AP, portable, upright chest radiograph is compared to study dated 10/07/2016 and correlated with chest CT dated 10/06/2016. The examination is degraded by portable technique and patient rotation. The heart is enlarged and there is atherosclerotic calcification of the thoracic aorta. Diffuse bilateral airspace opacities have not significantly changed from 10/07/2016. No large pleural effusion is identified. No pneumothorax is seen. The skeletal structures are osteopenic. Chronic posttraumatic deformity is noted in the left proximal humerus. Degenerative change and scoliosis are seen in the thoracic spine. IMPRESSION: 1. Diffuse bilateral airspace opacities have not significantly changed from 10/07/2016. Differential considerations remain pulmonary edema, multifocal pneumonia, pulmonary hemorrhage, and/or ARDS. Clinical correlation will be required. 2. Cardiomegaly. Electronically signed by: Yimi Lo M.D. 10/09/2016 8:29 AM Dictated Date/Time: 10/09/2016 8:26 AM
[2016-10-09] MEDS ORDERED: POTASSIUM CHLORIDE 20 MEQ TABCR PO ONE ×2 (09:12→18:00)
--- NOTE | 2016-10-09 09:15 | Family Medicine Progress Note ---
Progress Note Date of Service Oct 09, 2016. Subjective Voiding: sweet catheter in place Feels fine at rest. Not yet out of bed this admission. Denies shortness of breath, chest pain. Currently on nasal cannula. All Other Systems: Reviewed and Negative Medications Current Inpatient Medications Medications (Trade) Dose Ordered Sig/Phillip Route Start Time Stop Time Status Last Admin Dose Admin Ioversol (Optiray 320) 100 ml UD PRN IV 10/06/16 17:00 10/10/16 16:59 Acetaminophen (Tylenol Tab) 650 mg Q4H PRN PO 10/06/16 20:00 11/05/16 19:59 Cholecalciferol (Vitamin D Tab) 1,000 inter.unit DAILY PO 10/07/16 09:00 11/06/16 08:59 10/09/16 08:00 1,000 INTER.UNIT Cyanocobalamin (Vitamin B-12 Tab) 1,000 mcg DAILY PO 10/07/16 09:00 11/06/16 08:59 10/09/16 08:00 1,000 MCG Diltiazem HCl (TIAzac CAP) 240 mg DAILY PO 10/07/16 09:00 11/06/16 08:59 10/09/16 07:58 240 MG Levothyroxine Sodium (Synthroid Tab) 75 mcg DAILYBB PO 10/07/16 06:00 11/06/16 06:59 10/09/16 06:34 75 MCG Lisinopril (Zestril Tab) 20 mg DAILY PO 10/07/16 09:00 11/06/16 08:59 10/09/16 08:00 20 MG Pravastatin Sodium (Pravachol Tab) 20 mg HS PO 10/06/16 21:00 11/05/16 20:59 10/08/16 20:45 20 MG Ondansetron HCl 4 mg 4 mg Q6H PRN IV 10/06/16 20:15 11/05/16 20:14 Acetaminophen (Ofirmev Iv) 100 ml @ 400 mls/hr Q8H PRN IV 10/06/16 20:15 11/05/16 20:14 10/06/16 22:02 400 MLS/HR Ipratropium [place] (Atrovent 0.02% 0.5MG/2.5ML Neb) 0.5 mg Q6R INH 10/06/16 21:00 11/05/16 20:59 10/09/16 07:06 0.5 MG Levalbuterol (Xopenex 1.25MG/ 0.5ML Neb) 1.25 mg Q6R INH 10/06/16 21:00 11/05/16 20:59 10/09/16 07:06 1.25 MG Ipratropium [place] (Atrovent 0.02% 0.5MG/2.5ML Neb) 0.5 mg Q2H PRN INH 10/06/16 20:30 11/05/16 20:29 Levalbuterol 1.25 mg 1.25 mg Q2H PRN INH 10/06/16 20:30 11/05/16 20:29 Pantoprazole Sodium 40 mg/ Dextrose 100 ml @ 20 mls/hr Q5H IV 10/07/16 18:30 11/06/16 18:29 10/09/16 04:51 20 MLS/HR Methylprednisolone Sodium Succinate/ Syringe (Solu-Medrol IV/ Syringe) 0.64 ml @ 1.5 mls/min Q6H IV 10/08/16 15:00 11/07/16 14:59 10/09/16 07:57 1.5 MLS/MIN Furosemide (Lasix Tab) 40 mg QAM PO 10/09/16 09:00 11/08/16 08:59 10/09/16 07:58 40 MG Objective Vital Signs Date Time Temp Pulse Resp B/P Pulse Ox O2 Delivery O2 Flow Rate FiO2 10/09/16 08:00 36.5 73 20 127/52 97 Nasal Cannula 4.0 10/09/16 07:06 68 16 94 Nasal Cannula 4.0 10/09/16 04:27 36.4 61 18 119/53 99 BiPAP 10/09/16 04:00 BiPAP 50 Venturi Mask 10/09/16 02:31 61 14 97 BiPAP/CPAP 40 10/09/16 00:02 36.4 71 18 118/54 100 BiPAP 10/08/16 23:59 BiPAP 50 Venturi Mask 10/08/16 22:16 79 96 40 10/08/16 20:00 Venturi Mask 13.0 10/08/16 19:56 36.9 79 18 117/56 94 Mask 13.0 10/08/16 19:41 92 16 97 Venturi Mask 15.0 10/08/16 16:15 36.9 95 20 131/66 93 10/08/16 16:00 93 Venturi Mask 15.0 50 10/08/16 14:42 78 16 98 Nasal Cannula 6.0 10/08/16 12:00 93 Venturi Mask 15.0 50 10/08/16 10:30 36.6 89 20 139/79 96 Room Air Physical Exam General Appearance: WD/WN, no apparent distress Eyes: normal inspection (conjunctival pallor resolved) ENT: + pertinent finding (dry mucus membranes) Neck: no JVD Respiratory/Chest: chest non-tender, no respiratory distress, no accessory muscle use, + crackles (base and mid zone b/l on back, clear anteriorly) Cardiovascular: no edema, + systolic murmur, + irregularly irregular Abdomen: normal bowel sounds, non tender, soft Extremities: no pedal edema, no calf tenderness, normal capillary refill Neurologic/Psychiatric: protection 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 industrial 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 II-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 nml as tested (no facial droop), no motor/ sensory deficits (grossly moving all 4 limbs equally), alert, oriented x 3 Skin: normal color, warm/dry, no rash Laboratory Results 10/09/16 06:50 Red Blood Count 3.14, Mean Corpuscular Volume 92.0, Mean Corpuscular Hemoglobin 31.5, Mean Corpuscular Hemoglobin Concent 34.3, Mean Platelet Volume 9.1, Neutrophils (%) (Auto) 94.7, Lymphocytes (%) (Auto) 2.3, Monocytes (%) (Auto) 2.7, Eosinophils (%) (Auto) 0.0, Basophils (%) (Auto) 0.0, Neutrophils # (Auto) 9.53, Lymphocytes # (Auto) 0.23, Monocytes # (Auto) 0.27, Eosinophils # (Auto) 0.00, Basophils # (Auto) 0.00 10/09/16 06:50 Test 10/09/16 06:50 White Blood Count 10.06 K/uL (4.8-10.8) Red Blood Count 3.14 M/uL (4.2-5.4) Hemoglobin 9.9 g/dL (12.0-16.0) Hematocrit 28.9 % (37-47) Mean Corpuscular Volume 92.0 fL (80-100) Mean Corpuscular Hemoglobin 31.5 pg (25-34) Mean Corpuscular Hemoglobin Concent 34.3 g/dl (32-36) Platelet Count 90 K/uL (130-400) Mean Platelet Volume 9.1 fL (7.4-10.4) Neutrophils (%) (Auto) 94.7 % Lymphocytes (%) (Auto) 2.3 % Monocytes (%) (Auto) 2.7 % Eosinophils (%) (Auto) 0.0 % Basophils (%) (Auto) 0.0 % Neutrophils # (Auto) 9.53 K/uL (1.4-6.5) Lymphocytes # (Auto) 0.23 K/uL (1.2-3.4) Monocytes # (Auto) 0.27 K/uL (0.11-0.59) Eosinophils # (Auto) 0.00 K/uL (0-0.5) Basophils # (Auto) 0.00 K/uL (0-0.2) RDW Standard Deviation 67.5 fL (36.4-46.3) RDW Coefficient of Variation 21.3 % (11.5-14.5) Immature Granulocyte % (Auto) 0.3 % Immature Granulocyte # (Auto) 0.03 K/uL (0.00-0.02) Platelet Estimate DECREASED Polychromasia 1+ Anisocytosis PRESENT Anion Gap 11.0 mmol/L (3-11) Est Creatinine Clear Calc Drug Dose 15.1 ml/min Estimated GFR () 22.5 Estimated GFR (Non- 19.4 BUN/Creatinine Ratio 30.0 (10-20) Calcium Level 7.9 mg/dl (8.5-10.1) Magnesium Level 2.7 mg/dl (1.8-2.4) Assessment and Plan 86 yo female with recent admission from -29 September 2016 with anemia, acute hypoxic respiratory failure and hemoptysis. Possible acute alveolar hemorrhage, but unable to perform bronchoscopy on patient. Investigated for vasculitis. Treated with steroids. Returned to the ER on with acute hypoxic respiratory failure and recurrent anemia. Anemia - Hgb 9.9 s/p 2 units transfusion, stable over last 24 hours Appreciate GI consult - for IV pantoprazole drip, not for EGD currently - Fecal occult blood positive on [place] exam, no BM since admission, glycerin supp. ordered. Serial - elevated direct bili, elevated LDH, low haptoglobin, elevated retic count - raises possible hemolytic process. Peripheral smear however shows no evidence of hemolysis therefore suspect anemia secondary to GI bleed. However, will get direct Rajendra's and consult hematology given concurrent thrombocytopenia ( discussed case with Dr Liriano who will see tomorrow) Thrombocytopenia - unclear etiology, consult heme Acute hypoxic respiratory failure with diffuse bilateral airspace opacities - improving with BiPAP and blood transfusion, ARDS vs. alveolar hemorrhage vs. pulmonary edema Appreciate pulmonology recommendations - CT: acute alveolar hemorrhage vs. pulmonary edema - previous hemoptysis suggests some alveolar hemorrhage but not enough to cause her severe anemia - antibiotics stopped and procalcitonin minimally raised, unlikely infective etiology given significant improvement Valvular heart disease with possible pulmonary edema Appreciate cardiology recommendations - LVEF 55-60% with mildly dilated left atrium, moderate mitral regurgitation, mild mitral stenosis, severe calcific aortic valve stenosis - possibly heart failure causing hemorrhage and pulmonary edema, but not thought to be primary issue - Lasix reduced to PO 40 mg daily - Continue ACEi Acute kidney injury Appreciate nephrology recommendations - baseline Cr 1.4, currently 2.2 - BMP daily - ANCA, anti-GBM Ab negative Hyperglycemia secondary to steroids - ACHS BSGs - aim 140-180 - Insulin with correction 30 Non acute issues CAD/paroxysmal atrial fibrillation/hypertension - Continue diltiazem controlled release 240 mg PO daily - no anticoagulation secondary to GI bleed Hx PE 2007 - not on anticoagulation secondary to GI bleed, LE Doppler clear on this admission Hx Nephrotic syndrome 2008 - proteinuria new since previous admission, nephrology consult Hypothyroidism - continue levothyroxine VTE prophylaxis - SCDs - chemical prophylaxis contraindicated secondary to anemia and hemoptysis Code - DNR - DNI (unless would benefit for a temporary reversible condition, POLST form done to this effect) - Not for half-way feeding but would accept trial of artificial hydration. Disposition - can be transfered to med/surg as Hgb stable .PT, OT, OOB as tolerated. Resident Tracking Resident Involvement: Resident Care Provided Care Provided: Adult Hospital Medicine History Resident Physician Supervision Note: I was present with Dr. Neri during the history and exam. I discussed the case with the resident and agree with the findings and plan as documented in the note. Any exceptions or clarifications are listed here. Pt seen and examined in chair at bedside. BIPAP use overnight for low sats but improved today. Resting comfortably in chair on 4LNC (2LNC at home baseline since last discharge intermittently). SOB has improved, leg swelling also improved. General Appearance: WD/WN, no apparent distress Respiratory: chest non-tender, no respiratory distress, decreased breath sounds , rales (b/l LL) Cardiovascular: normal peripheral pulses, no murmur, irregularly irregular, other (trace edema b/l LE) Assessment/Plan 86 y/o female h/o CKD, chronic anemia, CAD, , Afib, CHF, HTN and recent pulmonary hemorrhage presenting w/ acute on chronic anemia Acute on chronic anemia s/p 2U PRBC on ..17 - Hgb stable at 9.9. Goal is 10. 2 units held. Bilateral pulmonary edema w/ hemoptysis - Pulmonology and cardiology aware and input appreciated. Reduced ventilatory support tolerated well. Steroids reduced to 40mg q6h. Tapering diuresis to lasix 40mg daily PO. t/c advancing steroid taper tomorrow. Acute on chronic CKD III, h/o AIN - Nephrology aware and input appreciated. Cr 2.2 GIB - Guiac +ve - Gastroenterology aware and input appreciated. No invasive testing at this time. PPI therapy to continue for 6 wks total. Precautions and sx of GIB/anemia reviewed CAD/Atrial fibrillation/aortic valve stenosis/CHF history/hypertension - Diltiazem 240mg daily, lisinopril, pravastatin Goals of care conversation - repeatedly no heroic measures and, when presented w / conversation noted, DNR/DNI 30 minutes discussion with the family today regarding goals of care including potential transition to tertiary care center for further evaluation of this issue with invasive testing. After lengthy discussion regarding her goals of care, the risks and benefits of invasive testing over gradual improvement and further evaluation as outpatient on reserve vs. escalation of care with following acute exacerbation, the family has tentatively decided to remain in our care and pursue further work up as capable here during her recovery and then as outpatient if possible in follow up. We will discuss with specialist consults regarding potential avenues at tertiary care for advanced testing, but I have counseled against this as her goals of care are opposed to the risks of the testing.
--- NOTE | 2016-10-09 09:35 | CARDIOLOGY CONSULTATION ---
DATE OF CONSULTATION: 10/08/2016 REASON FOR CONSULTATION: Heart failure and valvular heart disease. CONSULT REQUESTED BY: Dr. Neri. HISTORY OF PRESENT ILLNESS: Ms. Rivera is an 86-year-old woman with a complex past medical history, known to me from the outpatient setting, who was readmitted in the setting of respiratory failure and acute anemia. Cardiology consultation is for further management of [id number] heart failure and valvular heart disease. The patient was recently admitted from September 22 to September 29 in the setting of similar symptoms. At that time, the patient was admitted with presumed heart failure, hemoptysis and anemia, requiring transfusion. There was question of possible pulmonary alveolar hemorrhage in the setting of the patient's prior renal disease/membranous nephropathy and was discharged on p.o. steroids. The patient was readmitted after she became more dyspneic and hypoxic at her primary care office. She was again noted to have pulmonary infiltrates on chest imaging and blood counts were again low with hemoglobin lessened at 6.8 and [id number] renal insufficiency with a creatinine of 2.2. Since admission, she has been treated with repeat blood transfusion. She has received IV Lasix and is down more than 3 liters. She intermittently required a Venturi face mask to maintain oxygenation. Her hemoptysis has slowly resolved. During her hospitalization, she has been evaluated by nephrology, pulmonology, GI and palliative care. At time of interview, the patient states that she is feeling okay. She denies any pain. She feels that her breathing has been stable and it is reaching baseline. She denies any recent hemoptysis or any recent bowel movements. She denies any chest pain, palpitations or presyncope. PAST MEDICAL HISTORY: 1. Severe aortic stenosis. 2. Hypertension. 3. Dyslipidemia. 4. 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 5. Questionable history of atrial fibrillation. 6. Prior pulmonary embolism. 7. Carotid artery disease. 8. Chronic diastolic heart failure. 9. Prior TIA. 10. Osteoporosis. FAMILY HISTORY: Noncontributory due to the patient's age and own medical issues. SOCIAL HISTORY: She is . She lives with her family. She previously worked at [employer]. She is a lifelong never smoker. She denies any significant alcohol or illicit drug use. ALLERGIES: NOTABLE FOR DOXYCYCLINE, TRIMETHOPRIM, ADHESIVES, ATORVASTATIN, CARBAMAZEPINE, HYDANTOINS, LEVOFLOXACIN, PENICILLINS, AND PHENYTOIN. HOME MEDICATIONS: Include vitamin D3, vitamin B12, diltiazem 240 mg daily, levothyroxine, lisinopril 20, oxygen, Protonix, pravastatin, and prednisone. REVIEW OF SYSTEMS: A 10-point review of systems was completed and otherwise negative other than stated in HPI. PHYSICAL EXAMINATION: VITAL SIGNS: Temperature 36.9, pulse 79, And blood pressure 117/56. She is satting 94% on a Venturi face mask with oxygen flow rate at 13 liters. GENERAL: She appears comfortable, in no acute distress. HEENT: Sclera anicteric. Oropharynx is clear. Mucous membranes are moist. NECK: Supple. She has no jugular venous distention. LUNGS: She has a few crackles at her left greater than right base. CARDIAC: She has a 3/6 systolic ejection murmur heard best at the right upper sternal border. She also has a holosystolic murmur heard best at the apex. Otherwise, she is regular with occasional premature beats. ABDOMEN: Soft, nontender, and nondistended with positive bowel sounds. EXTREMITIES: Warm. She has intact distal pulses. SKIN: Shows no rashes or lesions. NEUROLOGIC: She is grossly nonfocal. PSYCHIATRIC: She is alert and oriented and appropriate. LABORATORY DATA: White blood cell count 11, hemoglobin up from 6.6 to 9.9 following transfusion, and platelets of 101. Sodium 139, potassium 3.1, BUN 65, and creatinine of 2.2. INR 1.0. Most recent blood gas 7.48/34/77/25. CARDIAC TESTING: Initial EKG shows sinus rhythm with PACs and PVCs, LVH with repolarization abnormality. Telemetry reviewed, shows sinus rhythm with frequent PACs and PVCs, and atrial fibrillation. Echo from 09/24/2016 shows preserved LV function with LVH and diastolic dysfunction, severe calcific aortic stenosis with a peak velocity of 4.4 and a mean gradient of 50 and an aortic valve area of 0.73. IMPRESSION AND PLAN: 1. Acute respiratory failure. 2. Czsay-qb-nfqvgrd diastolic heart failure. 3. Severe aortic stenosis. 4. Moderate mitral regurgitation. 5. Snewe-gn-hhfwlyj kidney disease. 6. Unexplained recurrent anemia. 7. Questionable atrial fibrillation. At present, the patient appears well perfused with minimal residual pulmonary congestion and no significant systemic venous congestion following diuresis. Low suspicion that the patients primary event is cardiac and feel unlikely that anemia/hemoptysis is a result of acute heart failure. Suspect initial decompensated heart failure event secondary to acute medical illness in particular unexplained recurrent anemia. As the patient appears well compensated, negative 4 liters since admission with rising creatinine, I agree with transition from IV Lasix to p.o. Lasix. Otherwise, no significant changes recommended to her cardiac regimen. The patient does have severe aortic valve disease; however, with her many comorbidities, is not likely be a candidate for either surgical or transcutaneous aortic valve replacement. In that setting, recommend continued medical management including adequate blood pressure control and treating elevated filling pressures and volume overload with diuretics as needed. We will continue to follow the patient while in the hospital. Thank you for allowing us to participate in the care of this patient. MARIAELENA
--- NOTE | 2016-10-09 09:50 | Palliative Care Progress Note ---
Palliative Care Progress Note Date of Service Oct 09, 2016. Subjective Pt evaluation today including: conversation w/ patient, conversation w/ family (sonTravis), physical exam, chart review Pain: 0/10 PO Intake: Tolerating diet well. Ate all of breakfast. Voiding: sweet catheter in place -Patient feels well today. -Wore bipap all night and is now on nasal cannula, SpO2 >95% while I was in room. -Spoke with sonTravis, on phone. -Apparently there was some discussion again of transferring to tertiary care and patient continues to decline. Review of Systems Constitutional: + weakness, No chills, No fever Respiratory: + dyspnea on exertion, No dyspnea at rest, No hemoptysis, No shortness of breath Cardiac: No chest pain, No edema Abdomen: + constipation, No nausea, No pain, No vomiting Female : No problem reported Psychiatric: No anxiety Objective Physical Exam General Appearance: no apparent distress, + thin ENT: hearing grossly normal Neck: no JVD Cardiovascular: regular rate, rhythm, no edema, + systolic murmur, + normal peripheral pulses Abdomen: normal bowel sounds, non tender, soft Neurologic/Psychiatric: alert, normal mood/affect, oriented x 3 Laboratory Results Last 24 Hours Test 10/09/16 06:50 White Blood Count 10.06 K/uL Red Blood Count 3.14 M/uL Hemoglobin 9.9 g/dL Hematocrit 28.9 % Mean Corpuscular Volume 92.0 fL Mean Corpuscular Hemoglobin 31.5 pg Mean Corpuscular Hemoglobin Concent 34.3 g/dl Platelet Count 90 K/uL Mean Platelet Volume 9.1 fL Neutrophils (%) (Auto) 94.7 % Lymphocytes (%) (Auto) 2.3 % Monocytes (%) (Auto) 2.7 % Eosinophils (%) (Auto) 0.0 % Basophils (%) (Auto) 0.0 % Neutrophils # (Auto) 9.53 K/uL Lymphocytes # (Auto) 0.23 K/uL Monocytes # (Auto) 0.27 K/uL Eosinophils # (Auto) 0.00 K/uL Basophils # (Auto) 0.00 K/uL RDW Standard Deviation 67.5 fL RDW Coefficient of Variation 21.3 % Immature Granulocyte % (Auto) 0.3 % Immature Granulocyte # (Auto) 0.03 K/uL Platelet Estimate DECREASED Polychromasia 1+ Anisocytosis PRESENT Sodium Level 139 mmol/L Potassium Level 2.9 mmol/L Chloride Level 100 mmol/L Carbon Dioxide Level 28 mmol/L Anion Gap 11.0 mmol/L Blood Urea Nitrogen 66 mg/dl Creatinine 2.20 mg/dl Est Creatinine Clear Calc Drug Dose 15.1 ml/min Estimated GFR () 22.5 Estimated GFR (Non- 19.4 BUN/Creatinine Ratio 30.0 Random Glucose 185 mg/dl Calcium Level 7.9 mg/dl Magnesium Level 2.7 mg/dl Assessment and Plan Problem list: SOB/YEE Fatigue/weakness Anemia- received 2 units PRBCs. FOCB positive. CHF exacerbation ?Alveolar hemorrhage- no hemoptysis since admission Hx afib, renal insufficiency, CAD, aortic valve stenosis Goals of care (Z51.5) Palliative care plan: -Remains DNR/DNI per our previous conversation. -PT/OT are ordered- await recommendations. -Will likely need SNF- case management follow. After SNF, patient's goal is to go home with home services. She states she doesn't think she's quite ready for hospice or to say that she does not want to come back to the hospital for treatment. She has been discussing plan with her two children. -No pain or discomfort at this time. -Still on Bipap at night, unsure how long this will continue. Pulmonary following. -Already has home oxygen. -Creatinine increased to 2.30 but nonoliguric, diuresing well. Nephrology following. -GI following for +FOCB- Protonix gtt infusing. Will follow on as-needed basis. Palliative Performance Scale: 40 % (at this time mainly in bed, requires assistance with care, reduced intake) Continued [facility] stay due to: multiple IV medications needed, other (still receiving acute treatment) Discharge planning: shelter facility
[2016-10-09] MEDS ORDERED: GLYCERIN ADULT 1 EA SUPP PR ONE (12:00)
[2016-10-09 14:40] LABS: COMPLETE YES
--- NOTE | 2016-10-09 16:38 | PULMONARY PROGRESS NOTE ---
DATE: 10/09/2016 TIME: 4:05 p.m. SUBJECTIVE: The patient feels better today. She has gotten out of bed. She feels somewhat stronger. Her breathing is easier and her cough is less. She is now on a nasal cannula rather than a Ventimask. Her family was with her at the present time. OBJECTIVE: VITAL SIGNS: Temperature is 36.7. Her heart rate is 72 per minute. Oxygen saturation is 98% on 4 liters. Respiratory rate is 16 breaths per minute. Blood pressure 112/45. The patient states she did wear her BiPAP most of the night last night. GENERAL: The patient looks comfortable. She has had no fevers in the past 24 hours. She still looks modestly week. NECK: There was no obvious neck vein distention, although the patient was in the sitting position. HEART: The rhythm is irregular. LUNG: Calderon again revealed posterior rales bilaterally. They seem to be less prominent than yesterday. EXTREMITIES: Show no edema. LABORATORY DATA: White count today is 10.06. Hemoglobin is 9.9. Platelets are 90,000. Electrolytes show sodium 139, potassium 2.9, chloride 100, and bicarbonate 28. The BUN is 66 with a creatinine of 2.2. These numbers are relatively unchanged compared with yesterday. They are slightly increased compared with admission. The original BUN was 53 and the creatinine on the was 2.1. The patient has continued with moderate diuresis thus far today. She has had 1400 mL urine output. For the prior 2 days, she had a net fluid loss of 4600 plus mL. I suspect this has contributed to her improvement. IMAGING DATA: She did have a chest x-ray today that showed persistence of the bilateral alveolar infiltrates which are about the same as before or perhaps slightly improved. IMPRESSIONS: 1. Respiratory failure with hypoxia. 2. Hemoptysis. 3. Pulmonary edema/volume overload -- improved. COMMENTS AND RECOMMENDATIONS: The patient seems clinically improved. Her oxygen needs are less. Her cough is less. The x-ray is not significantly improved thus far. She has not had any hemoptysis in over a day. I would decrease the methylprednisolone. This may improve her kidney function somewhat. I agree with cautious diuresis and changing the furosemide to oral. The source of the bleeding still has not been entirely determined. We would continue with the nebulizer treatments. Case was discussed with Dr. Neri.
--- NOTE | 2016-10-09 16:59 | Nephrology Progress Note ---
Nephrology Progress Note Date of Service Oct 09, 2016. Chief Complaint Follow up evaluation of acute on chronic kidney injury Subjective Ms. Rivera was seen & examined in the PCU this morning. She has responded to IV diuretic therapy. She has had net 2500 cc UO over the last 24 hours. Her respiratory status is markedly improved. She denies angina, abdominal pain or overt bleeding Review of Systems Constitutional: No fever Cardiovascular: No chest pain Respiratory: No dyspnea at rest Abdomen: No nausea, No pain, No vomiting Extremities: No leg edema A complete review of systems was performed. Pertinent positives are noted above. All other systems are negative. Vital Signs Last 8 Hrs Date Time Temp Pulse Resp B/P Pulse Ox O2 Delivery O2 Flow Rate FiO2 10/09/16 15:59 36.7 68 16 118/57 98 Nasal Cannula 2.0 10/09/16 14:12 68 16 98 Nasal Cannula 4.0 10/09/16 12:35 36.7 67 24 112/45 93 Room Air 10/09/16 12:00 Nasal Cannula 4.0 I & O 24-Hour Column 10/09/16 08:00 Intake Total 993 ml Output Total 2625 ml Balance -1632 ml Last Recorded Weight Weight (Kilograms): 54.200 Physical Exam General Appearance: + thin (frail chronically ill appearing) Head: atraumatic (temporal muscle wasting) Eyes: PERRL, EOMI Neck: no adenopathy Respiratory/Chest: + rales (bilaterally) Cardiovascular: regular rate, rhythm Abdomen/GI: normal bowel sounds, non tender, soft Extremities/Musculoskelatal: no pedal edema Neurologic/Psych: alert Family History Heart disease Negative for CKD / ESRD Social History Drug Use: none Marital Status: Housing Status: lives with family 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 . Lives alone. Son (Travis) is nearby and very supportive. Retired from [employer]. Never a smoker Laboratory Results Past 24 Hours 10/09/16 06:50 Red Blood Count 3.14, Mean Corpuscular Volume 92.0, Mean Corpuscular Hemoglobin 31.5, Mean Corpuscular Hemoglobin Concent 34.3, Mean Platelet Volume 9.1, Neutrophils (%) (Auto) 94.7, Lymphocytes (%) (Auto) 2.3, Monocytes (%) (Auto) 2.7, Eosinophils (%) (Auto) 0.0, Basophils (%) (Auto) 0.0, Neutrophils # (Auto) 9.53, Lymphocytes # (Auto) 0.23, Monocytes # (Auto) 0.27, Eosinophils # (Auto) 0.00, Basophils # (Auto) 0.00 10/09/16 06:50 10/09/16 15:18 Test 10/09/16 06:50 White Blood Count 10.06 K/uL (4.8-10.8) Red Blood Count 3.14 M/uL (4.2-5.4) Hemoglobin 9.9 g/dL (12.0-16.0) Hematocrit 28.9 % (37-47) Mean Corpuscular Volume 92.0 fL (80-100) Mean Corpuscular Hemoglobin 31.5 pg (25-34) Mean Corpuscular Hemoglobin Concent 34.3 g/dl (32-36) Platelet Count 90 K/uL (130-400) Mean Platelet Volume 9.1 fL (7.4-10.4) Neutrophils (%) (Auto) 94.7 % Lymphocytes (%) (Auto) 2.3 % Monocytes (%) (Auto) 2.7 % Eosinophils (%) (Auto) 0.0 % Basophils (%) (Auto) 0.0 % Neutrophils # (Auto) 9.53 K/uL (1.4-6.5) Lymphocytes # (Auto) 0.23 K/uL (1.2-3.4) Monocytes # (Auto) 0.27 K/uL (0.11-0.59) Eosinophils # (Auto) 0.00 K/uL (0-0.5) Basophils # (Auto) 0.00 K/uL (0-0.2) RDW Standard Deviation 67.5 fL (36.4-46.3) RDW Coefficient of Variation 21.3 % (11.5-14.5) Immature Granulocyte % (Auto) 0.3 % Immature Granulocyte # (Auto) 0.03 K/uL (0.00-0.02) Platelet Estimate DECREASED Polychromasia 1+ Anisocytosis PRESENT Peripheral Blood Smear Path Consult Anion Gap 11.0 mmol/L (3-11) Est Creatinine Clear Calc Drug Dose 15.1 ml/min Estimated GFR () 22.5 Estimated GFR (Non- 19.4 BUN/Creatinine Ratio 30.0 (10-20) Calcium Level 7.9 mg/dl (8.5-10.1) Magnesium Level 2.7 mg/dl (1.8-2.4) Allergies Coded Allergies: Doxycycline (Verified Allergy, Severe, RASH, 09/22/16) Trimethoprim (Verified Allergy, Severe, RASH, 09/22/16) Adhesives (Verified Allergy, Unknown, HAD RXN TO [employer]ATCHES, ) Atorvastatin (Unverified Allergy, Unknown, UNKNOWN, 10/06/16) Carbamazepine (Verified Allergy, Unknown, 10/06/16) Hydantoins (Verified Allergy, Unknown, 09/22/16) Levofloxacin (Unverified Allergy, Unknown, UNKNOWN, 10/06/16) Penicillins (Verified Allergy, Unknown, AMOXIL, 10/07/16) has tolerated cefepime and ceftriaxone on previous admissions Phenytoin (Verified Allergy, Unknown, 10/06/16) Medications Current Inpatient Medications Medications (Trade) Dose Ordered Sig/Phillip Route Start Time Stop Time Status Last Admin Dose Admin Ioversol (Optiray 320) 100 ml UD PRN IV 10/06/16 17:00 10/10/16 16:59 Acetaminophen (Tylenol Tab) 650 mg Q4H PRN PO 10/06/16 20:00 11/05/16 19:59 Cholecalciferol (Vitamin D Tab) 1,000 inter.unit DAILY PO 10/07/16 09:00 11/06/16 08:59 10/09/16 08:00 1,000 INTER.UNIT Cyanocobalamin (Vitamin B-12 Tab) 1,000 mcg DAILY PO 10/07/16 09:00 11/06/16 08:59 10/09/16 08:00 1,000 MCG Diltiazem HCl (TIAzac CAP) 240 mg DAILY PO 10/07/16 09:00 11/06/16 08:59 10/09/16 07:58 240 MG Levothyroxine Sodium (Synthroid Tab) 75 mcg DAILYBB PO 10/07/16 06:00 11/06/16 06:59 10/09/16 06:34 75 MCG Lisinopril (Zestril Tab) 20 mg DAILY PO 10/07/16 09:00 4/28/17 08:59 10/09/16 08:00 20 MG Pravastatin Sodium (Pravachol Tab) 20 mg HS PO 10/06/16 21:00 11/05/16 20:59 10/08/16 20:45 20 MG Ondansetron HCl 4 mg 4 mg Q6H PRN IV 10/06/16 20:15 11/05/16 20:14 Acetaminophen (Ofirmev Iv) 100 ml @ 400 mls/hr Q8H PRN IV 10/06/16 20:15 11/05/16 20:14 10/06/16 22:02 400 MLS/HR Ipratropium [place] (Atrovent 0.02% 0.5MG/2.5ML Neb) 0.5 mg Q6R INH 10/06/16 21:00 11/05/16 20:59 10/09/16 14:12 0.5 MG Levalbuterol (Xopenex 1.25MG/ 0.5ML Neb) 1.25 mg Q6R INH 10/06/16 21:00 11/05/16 20:59 10/09/16 14:12 1.25 MG Ipratropium [place] (Atrovent 0.02% 0.5MG/2.5ML Neb) 0.5 mg Q2H PRN INH 10/06/16 20:30 11/05/16 20:29 Levalbuterol 1.25 mg 1.25 mg Q2H PRN INH 10/06/16 20:30 11/05/16 20:29 Pantoprazole Sodium/Dextrose (Protonix Inj/D5 100ml) 100 ml @ 20 mls/hr Q5H IV 10/07/16 18:30 11/06/16 18:29 10/09/16 09:25 20 MLS/HR Furosemide (Lasix Tab) 40 mg QAM PO 10/09/16 09:00 11/08/16 08:59 10/09/16 07:58 40 MG Potassium Chloride 20 meq 20 meq BID PO 10/09/16 21:00 11/08/16 20:59 Methylprednisolone Sodium Succinate/ Syringe (Solu-Medrol IV/ Syringe) 0.64 ml @ 1.5 mls/min Q8H IV 10/09/16 17:00 11/08/16 16:59 Impression (1) ANA PAULA (acute kidney injury) (2) Chronic kidney disease, stage 3 (3) Anemia (4) ARDS (adult respiratory distress syndrome) Patient admitted to the hospital w/ recurrent CHF and profound anemia. She has developed acute on chronic kidney injury due to hemodynamic insult. Need to assess for cause of recurrent anemia (GI blood loss vs. myelofibrosis vs. hemolytic anemia vs. pulmonary hemorrhage). Recommendations ACUTE KIDNEY INJURY: -- Creatinine remains relatively stable at 2.2 -- Monitor serial PRP -- Avoid known nephrotoxic agents -- MICHELLE, ANCA, anti-GBM Ab from last hospitalization were negative -- Urine sediment is benign. UPCR was 0.8 CHRONIC KIDNEY DISEASE: -- Baseline creatinine has been 1.4 ANEMIA: -- Has iron deficiency despite recent blood transfusions -- FOBT is + (1st sample) -- B12 and folate are normal -- Patient has high LDH w/ low haptoglobin -- Recommend transfusion to maintain Hgb > 10 -- Consider hematology evaluation PULMONARY INFILTRATES: -- Echocardiogram 09/25 reviewed today. Severe . Preserved LVEF -- Pulmonology infiltrates have improved w/ diuretic therapy OTHER: -- Remain vigilant for GI blood loss. If stool is persistently guaiac + may need to reconsider endoscopy. Profound anemia in the setting of severe may have resulted in CHF. Patient is clinically improved following blood transfusion and diuretic therapy
[2016-10-09] MEDS ORDERED: NURSING VERBAL MED ORDER ONE (17:45)
[2016-10-09] MEDS ORDERED: GLUCAGON FOR INJ 1 MG VIAL SQ PRN (18:00)
[2016-10-09] MEDS ORDERED: GLUCOSE 10 TABS/TUBE PO PRN (18:00)
[2016-10-09] MEDS ORDERED: DEXTROSE 50% 50 ML SYR IV PRN (18:00)
[2016-10-09] MEDS ORDERED: GLUCOSE 40% GEL 15 GM TUBE PO PRN (18:00)
[2016-10-09] MEDS: PRAVASTATIN SOD 20 MG TAB PO SCH (19:47)
[2016-10-09] MEDS: POTASSIUM CHLORIDE 20 MEQ TABCR PO SCH (19:48)
[2016-10-09] MEDS: INSULIN ASPART 100 UNITS/ML 3 ML PEN SC SCH (21:40)
[2016-10-10] VITALS (9 sets, daily range): BP systolic 108–163; BP diastolic 49–110; PULSE 73–91; TEMP 36.4–36.7; O2SAT 90–97
[2016-10-10] MEDS: METHYLPREDNISOLONE IV 40 MG in SYRINGE 0 ML IV SCH ×2 (01:34→08:22)
[2016-10-10] MEDS: PANTOprazole INJ 40 MG in DEXTROSE 5% 100ML IV SCH ×5 (01:48→21:45)
[2016-10-10] MEDS: LEVALBUTEROL 1.25MG/0.5ML NEB INH SCH ×4 (02:28→21:37)
[2016-10-10] MEDS: IPRATROPIUM BROMIDE NEB SOLN 0.02% 2.5 ML VIAL INH SCH ×4 (02:28→21:37)
[2016-10-10] MEDS: LEVOTHYROXINE 75 MCG TAB PO SCH (06:01)
[2016-10-10 07:34] LABS: MEAN CELL VOLUME 90.6 fL (80-100); MEAN CORPUSCULAR HEMOGLOBIN 30.8 pg (25-34); RED BLOOD COUNT 3.31 M/uL (4.2-5.4); WHITE BLOOD COUNT 11.56 K/uL (4.8-10.8)
[2016-10-10 07:41] LABS: MEAN PLATELET VOLUME 9.3 fL (7.4-10.4); PLATELET COUNT 87 K/uL (130-400)
[2016-10-10 08:04] LABS: BUN/CREATININE RATIO 31.3 (10-20); CALCIUM 8.4 mg/dl (8.5-10.1); CREATININE 2.3 mg/dl (0.60-1.20); POTASSIUM 3.9 mmol/L (3.5-5.1)
[2016-10-10] MEDS: INSULIN ASPART 100 UNITS/ML 3 ML PEN SC SCH ×4 (08:22→21:41)
[2016-10-10] MEDS: DILTIAZEM HCL 120 MG EXT REL CAP PO SCH (08:23)
[2016-10-10] MEDS: CHOLECALCIFEROL 1000 INTER.UNIT TAB PO SCH (08:24)
[2016-10-10] MEDS: LISINOPRIL 20 MG TAB PO SCH (08:24)
[2016-10-10] MEDS: POTASSIUM CHLORIDE 20 MEQ TABCR PO SCH ×2 (08:25→21:38)
[2016-10-10] MEDS: CYANOCOBALAMIN 500 MCG TAB (VIT B-12) PO SCH (08:25)
[2016-10-10] MEDS: FUROSEMIDE 40 MG TAB PO SCH (08:26)
[2016-10-10 09:45] LABS: ESTIMATED AVERAGE GLUCOSE 91 mg/dl; HA1C FLAG Normal (Normal)
--- NOTE | 2016-10-10 11:24 | PULMONARY PROGRESS NOTE ---
DATE: 10/10/2016 DATE: 10/10/2016. TIME: 10:55 a.m. SUBJECTIVE: The patient feels much better. She is less short of breath. Her oxygen needs have dramatically decreased. She has not had any hemoptysis for a few days. OBJECTIVE: GENERAL: The patient appears comfortable. Multiple family members are present. VITAL SIGNS: Temperature is 36.7. HEAD, EYES, EARS, NOSE, AND THROAT: She does complain that her throat is sore. Examination shows evidence of oral candidiasis. No lymph nodes were palpable. HEART: Rate is 78 per minute. Blood pressure 113/49. LUNGS: Lung meyer revealed mild rales bilaterally. Her oxygen saturation is 92% on room air taken by myself. This would be at rest. GENITOURINARY: She still has a Hu catheter in place. EXTREMITIES: Showed no cyanosis, clubbing or edema. IMPRESSIONS: 1. Respiratory failure with hypoxia -- much improved. 2. Hemoptysis and diffuse alveolar hemorrhage. 3. Pulmonary edema/volume overload -- improved. 4. Oral candidiasis. COMMENTS AND RECOMMENDATIONS: The patient is much better than she has been. This is both clinically and by oxygen needs. I believe the BiPAP has helped. She has had a significant diuresis over the past several days, but clinically seems to help some. That is slowing down at present. She does have renal insufficiency. I am going to further decrease the methylprednisolone. Continue the nebulizer treatments for now. We will repeat a chest x-ray.
--- NOTE | 2016-10-10 12:18 | Nephrology Progress Note ---
Nephrology Progress Note Date of Service Oct 10, 2016. Chief Complaint Follow-up for acute kidney injury with history of chronic kidney disease. Ion Tavares was seen and examined in her room this morning. Overall she is feeling much better her shortness of breath resolved, she has been off of nasal cannula oxygen and feeling fine. She remain non-oliguric. She has been on Lasix and last 4 days she has been net negative, currently she seems to be in fax slightly volume depleted. creatinine slightly worsened to 2.3. Review of Systems A complete review of systems was performed. Pertinent positives are noted above. All other systems are negative. Vital Signs Last 8 Hrs Date Time Temp Pulse Resp B/P Pulse Ox O2 Delivery O2 Flow Rate FiO2 10/10/16 08:20 36.7 78 18 113/49 90 Room Air 10/10/16 08:00 90 Room Air 10/10/16 07:12 73 16 96 Nasal Cannula 2.0 I & O 24-Hour Column 10/10/16 08:00 Intake Total 1066 ml Output Total 2000 ml Balance -934 ml Last Recorded Weight Weight (Kilograms): 54.200 Physical Exam GENERAL: Elderly female, AAA x 3, pleasant, healthy-appearing, not in any distress. NECK: Supple, no JVD. RESPIRATORY: Normal breathing efforts, no accessory muscle use, clear to auscultation bilaterally, no wheezes or rales. CARDIOVASCULAR: S1, S2 normal, rate rhythm regular. EXTREMITY: No lower extremity edema NEURO: speech fluent. PSYCHIATRY: Normal mood and judgment Family History Heart disease Negative for CKD / ESRD Social History Drug Use: none Marital Status: Housing Status: lives with family 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 . Lives alone. Son (Travis) is nearby and very supportive. Retired from [employer]. Never a smoker Laboratory Results Past 24 Hours 10/10/16 07:02 10/09/16 15:18 10/10/16 07:02 Test 10/09/16 19:53 10/10/16 07:02 10/10/16 07:17 10/10/16 11:25 Bedside Glucose 190 mg/dl (70-90) 165 mg/dl (70-90) 276 mg/dl (70-90) Red Blood Count 3.31 M/uL (4.2-5.4) Mean Corpuscular Volume 90.6 fL (80-100) Mean Corpuscular Hemoglobin 30.8 pg (25-34) Mean Corpuscular Hemoglobin Concent 34.0 g/dl (32-36) RDW Standard Deviation 65.7 fL (36.4-46.3) RDW Coefficient of Variation 20.6 % (11.5-14.5) Mean Platelet Volume 9.3 fL (7.4-10.4) Absolute Reticulocyte Count 0.21 10^6/uL (0.02-0.10) Percent Reticulocyte Count 6.4 % (0.5-2.0) Anion Gap 10.0 mmol/L (3-11) Est Creatinine Clear Calc Drug Dose 14.5 ml/min Estimated GFR () 21.3 Estimated GFR (Non- 18.4 BUN/Creatinine Ratio 31.3 (10-20) Estimated Average Glucose 91 mg/dl Hemoglobin A1c 4.8 % (4.5-5.6) Calcium Level 8.4 mg/dl (8.5-10.1) Allergies Coded Allergies: Doxycycline (Verified Allergy, Severe, RASH, 09/22/16) Trimethoprim (Verified Allergy, Severe, RASH, 09/22/16) Adhesives (Verified Allergy, Unknown, HAD RXN TO [employer], ) Atorvastatin (Unverified Allergy, Unknown, UNKNOWN, 10/06/16) Carbamazepine (Verified Allergy, Unknown, 10/06/16) Hydantoins (Verified Allergy, Unknown, 09/22/16) Levofloxacin (Unverified Allergy, Unknown, UNKNOWN, 10/06/16) Penicillins (Verified Allergy, Unknown, AMOXIL, 10/07/16) has tolerated cefepime and ceftriaxone on previous admissions Phenytoin (Verified Allergy, Unknown, 10/06/16) Medications Current Inpatient Medications Medications (Trade) Dose Ordered Sig/Phillip Route Start Time Stop Time Status Last Admin Dose Admin Ioversol (Optiray 320) 100 ml UD PRN IV 10/06/16 17:00 10/10/16 16:59 Acetaminophen (Tylenol Tab) 650 mg Q4H PRN PO 10/06/16 20:00 11/05/16 19:59 Cholecalciferol (Vitamin D Tab) 1,000 inter.unit DAILY PO 10/07/16 09:00 11/06/16 08:59 4/1/17 08:24 1,000 INTER.UNIT Cyanocobalamin (Vitamin B-12 Tab) 1,000 mcg DAILY PO 10/07/16 09:00 11/06/16 08:59 10/10/16 08:25 1,000 MCG Diltiazem HCl (TIAzac CAP) 240 mg DAILY PO 10/07/16 09:00 11/06/16 08:59 10/10/16 08:23 240 MG Levothyroxine Sodium (Synthroid Tab) 75 mcg DAILYBB PO 10/07/16 06:00 11/06/16 06:59 10/10/16 06:01 75 MCG Lisinopril (Zestril Tab) 20 mg DAILY PO 10/07/16 09:00 11/06/16 08:59 10/10/16 08:24 20 MG Pravastatin Sodium (Pravachol Tab) 20 mg HS PO 10/06/16 21:00 11/05/16 20:59 10/09/16 19:47 20 MG Ondansetron HCl 4 mg 4 mg Q6H PRN IV 10/06/16 20:15 11/05/16 20:14 Acetaminophen (Ofirmev Iv) 100 ml @ 400 mls/hr Q8H PRN IV 10/06/16 20:15 11/05/16 20:14 10/06/16 22:02 400 MLS/HR Ipratropium [place] (Atrovent 0.02% 0.5MG/2.5ML Neb) 0.5 mg Q6R INH 10/06/16 21:00 11/05/16 20:59 10/10/16 07:12 0.5 MG Levalbuterol (Xopenex 1.25MG/ 0.5ML Neb) 1.25 mg Q6R INH 10/06/16 21:00 11/05/16 20:59 10/10/16 07:12 1.25 MG Ipratropium [place] (Atrovent 0.02% 0.5MG/2.5ML Neb) 0.5 mg Q2H PRN INH 10/06/16 20:30 11/05/16 20:29 Levalbuterol 1.25 mg 1.25 mg Q2H PRN INH 10/06/16 20:30 11/05/16 20:29 Pantoprazole Sodium/Dextrose (Protonix Inj/D5 100ml) 100 ml @ 20 mls/hr Q5H IV 10/07/16 18:30 11/06/16 18:29 10/10/16 11:49 20 MLS/HR Furosemide (Lasix Tab) 40 mg QAM PO 10/09/16 09:00 11/08/16 08:59 10/10/16 08:26 40 MG Potassium Chloride (Klor-Con Tab) 20 meq BID PO 10/09/16 21:00 11/08/16 20:59 10/10/16 08:25 20 MEQ Insulin Aspart (novoLOG ASPART) SLIDING SCALE If C... ACHS SC 10/09/16 21:00 11/08/16 20:59 10/10/16 11:55 4 UNITS Glucose (Glucose 40% Gel) 15-30 GRAMS 15 GRAMS... UD PRN PO 10/09/16 18:00 11/08/16 17:59 Glucose (Glucose Chew Tab) 4-8 Tablets 4 Tabl... UD PRN PO 10/09/16 18:00 11/08/16 17:59 Dextrose (Dextrose 50% 50ML Syringe) 25-50ML OF 50% DW IV FOR... UD PRN IV 10/09/16 18:00 11/08/16 17:59 Glucagon 1 mg 1 mg UD PRN SQ 10/09/16 18:00 11/08/16 17:59 Methylprednisolone Sodium Succinate/ Syringe (Solu-Medrol IV/ Syringe) 0.32 ml @ 1.5 mls/min Q12 IV 10/10/16 21:00 11/09/16 20:59 Nystatin (Mycostatin Susp) 5 ml QID PO 10/10/16 13:00 10/17/16 12:59 Impression (1) ANA PAULA (acute kidney injury) (2) Chronic kidney disease, stage 3 (3) Anemia (4) ARDS (adult respiratory distress syndrome) Patient admitted to the hospital w/ recurrent CHF and profound anemia. She has developed acute on chronic kidney injury due to hemodynamic insult. Need to assess for cause of recurrent anemia (GI blood loss vs. myelofibrosis vs. hemolytic anemia vs. pulmonary hemorrhage). Recommendations ACUTE KIDNEY INJURY: -- Creatinine slightly worsened to 2.3 and she clinically since volume depleted -- encourage patient to increase fluid intake -- hold diuretics for now, aim for net even -- Monitor serial PRP -- Avoid known nephrotoxic agents CHRONIC KIDNEY DISEASE: -- Baseline creatinine has been 1.4 ANEMIA: -- Has iron deficiency despite recent blood transfusions -- FOBT is + (1st sample), hemoglobin remained stable -- B12 and folate are normal -- Patient has high LDH w/ low haptoglobin -- Recommend transfusion to maintain Hgb > 10 -- Consider hematology evaluation PULMONARY INFILTRATES: -- Echocardiogram 09/25 reviewed today. Severe . Preserved LVEF -- Pulmonology infiltrates have improved w/ diuretic therapy
[2016-10-10] MEDS: NYSTATIN SUSP 500,000 U/5 ML UDC PO SCH ×3 (13:08→21:35)
--- NOTE | 2016-10-10 14:10 | ONCOLOGY CONSULTATION ---
DATE OF CONSULTATION: 10/10/2016 DATE OF CONSULTATION: 10/10/2016. REASON FOR CONSULTATION: Persistent anemia, suspect gastrointestinal bleeding. HISTORY OF PRESENT ILLNESS: Anusha is a pleasant 86-year-old female patient who was admitted to [facility] on 10/06/2016 for persistent difficulty breathing. Apparently when EMS was activated the patient was found to be hypoxic with pulse ox in the 80s, very short of breath with productive cough and rales. She was placed on CPAP and Nitro drip and transported to the Emergency Room for assessment. The patient had an admission just prior from September 22 to with similar symptomatology and actually had received 3 units of packed RBCs. I was contacted by the hospitalist service yesterday advising me of this case. I was told that the patient had occult blood in her feces. She apparently has been worked up by gastroenterology in the past without finding active bleeding source. The patient has several comorbid issues including atrial fibrillation and aortic valvular stenosis. She received 2 additional units of packed RBCs and apparently has a multitude of antibodies necessitating a complete crossmatch. Reticulocytosis approximately 6%. I asked the primary service to ordered direct Rajendra and results are pending. PAST MEDICAL HISTORY: 1. Again, significant for aortic stenosis. 2. Atrial fibrillation. 3. Chronic kidney disease. 4. Congestive heart failure. 5. Coronary arthrosclerosis. 6. Hypertension. 7. Nephrotic syndrome. 8. Osteoporosis. 9. 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 FAMILY HISTORY: Her mother and father are both from natural causes. SOCIAL HISTORY: The patient is , lives with family, retired, nonsmoker, nondrinker. MEDICATIONS: Prior to admission cholecalciferol 1 tablet p.o. every day, cyanocobalamin 1000 mcg p.o. every day, diltiazem 240 mg p.o. daily, levothyroxine 75 mcg p.o. every day, lisinopril 20 mg p.o. daily, 2 liters of oxygen via nasal cannula, Protonix 20 mg p.o. b.i.d., pravastatin 20 mg p.o. at bedtime, prednisone 40 mg p.o. every day. ALLERGIES: INCLUDE DOXYCYCLINE, TRIMETHOPRIM, ADHESIVES, ATORVASTATIN, CARBAMAZEPINE, HYDANTOINS, LEVOFLOXACIN, PENICILLINS AND PHENYTOIN. REVIEW OF SYSTEMS: Positive for fatigue. She denies anorexia or weight loss. No fevers, chills or sweats. SKIN: No history of dermatoses, no rashes or lesions. HEAD, EYES, EARS, NOSE, AND THROAT: Negative for headaches, lightheadedness or dizziness. No visual or hearing deficits. No sinus symptoms, sore throat or dysphagia. LYMPHADENOPATHY: No history of lymphoproliferative disorder. CARDIAC: No current angina or palpitations, history of aortic valve disease. GASTROENTEROLOGY: Negative for abdominal pain, nausea, vomiting, diarrhea or constipation. Positive for melena. ENDOCRINE: Positive for hypothyroidism. MUSCULOSKELETAL: No arthralgias or myalgias. No muscle weakness. PSYCHIATRIC: Negative for anxiety, depression or psychoses. NEUROLOGIC: Negative for seizures or migraine headaches, positive for TIA by history. HEMATOLOGIC: As per HPI, most notably for persistent anemia and mild thrombocytopenia. PHYSICAL EXAMINATION: GENERAL: Very pleasant 86-year-old female patient, awake, alert and appropriate, in no acute distress at this time. VITAL SIGNS: Temperature 36.7, pulse 78, respirations 18, blood pressure 113/49. SKIN: Warm, dry, noncyanotic with petechia, rash or ecchymosis. HEAD, EYES, EARS, NOSE, AND THROAT: Head atraumatic, normocephalic. EYES: PERRLA, EOMI. Sclerae nonicteric. No conjunctival injection. Nares are patent without rhinorrhea or discharge. Throat is clear. Tongue is midline. Mucous membranes are moist. No buccal lesions or ulcerations. NECK: Supple without JVD or thyromegaly. LYMPHADENOPATHY: No cervical, supraclavicular, axillary or inguinal palpable nodes. HEART: Regular rate and rhythm. No clicks, rubs, murmurs or gallops. She has a harsh holosystolic murmur heard in the left precordium, 3/6 in intensity. LUNGS: Clear to auscultation bilaterally. ABDOMEN: Soft, nontender, nondistended, without palpable hepatosplenomegaly. EXTREMITIES: No calf tenderness or swelling. No clubbing, cyanosis or edema. NEUROLOGIC EXAMINATION: She is awake, alert and oriented x3. Cranial nerves are grossly intact. LABORATORY DATA: WBC count 11,560, hemoglobin 10.2, platelet count 87,000, absolute reticulocyte count 0.21, which translated into 6.4%. Sodium 139, potassium 3.9, chloride 102, carbon dioxide 27, BUN 72, creatinine 2.30. RADIOGRAPHIC DATA: Chest x-ray performed yesterday diffuse bilateral airspace opacities, unchanged. Differential considerations pulmonary edema, multifocal pneumonia, pulmonary hemorrhage and/or ARDS. IMPRESSION: 1. Persistent anemia, etiology unclear. 2. Thrombocytopenia. 3. Acute hypoxic respiratory failure. 4. Valvular heart disease. 5. Acute renal injury. 6. Hyperglycemia. 7. Paroxysmal atrial fibrillation. IMPRESSION: Anusha is a pleasant 86-year-old elderly female who has had 2 admissions to [facility] in close succession. There seems to be multisystem dysfunction including possible pulmonary edema/ARDS versus complications secondary to valvulopathy. Interestingly, the patient has had persistent anemia with occult fecal blood. Gastroenterology was appropriately consulted and recommended PPI therapy for GI prophylaxis and no plan for invasive workup due to underlying respiratory status. Unclear whether plans are underway to have her scoped once she is medically stable. Perhaps camera endoscopy might be helpful. Active bleeding can also be detected on a radial labeled RBC scan. These tests generally have low yield and patient has to be actively bleeding for positive result. I am less suspicious she has an active hemolytic process as her reticulocytosis may be secondary to reaction to ongoing losses. As for the thrombocytopenia, unfortunately I cannot establish a baseline when her platelet count was actually normal. With the severe valvulopathy however platelets may be destroyed mechanically. I would also review her current medications to see if there are any which can cause underlying thrombocytopenia. There has not been dramatic fluctuation in her platelet count since admission and will continue to observe for now. I did review the pathologist's interpretation of peripheral smear and agree with those findings. For now, I agree with medical management. Clearly, there is a bleeding source rather it be diverticular disease, possible neoplasia versus arteriovenous malformations. Perhaps iron studies should be done even though her MCV is normal I suspect she may be entering an iron deficient state. I have nothing further to add at this time. I will continue to follow her during her hospital stay. Thank you very much for allowing us to participate in her care. If you have any questions or concerns, feel free to contact me at any time.
--- NOTE | 2016-10-10 16:16 | Progress Note ---
Progress Note Date of Service: Oct 10, 2016. Subjective: 86-year-old female seated bedside without complaints. Overall she states she feels better when compared to yesterday. Chest suppository and subsequent bowel movement, and this seems to help too - unfortunate she flushed the toilet before nursing could obtain the stool for guaiac testing. Review of Systems Problem List Medical Problems: (1) Acute kidney injury Status: Acute (2) Anemia Status: Acute (3) Chronic anemia Status: Acute (4) Elevated troponin Status: Acute (5) Hypoxia Status: Acute General Appearance: no apparent distress Constitutional: denies: fever Respiratory: negative: cough, short of breath Cardiovascular: denies chest pain, denies edema All Other Systems: Reviewed and Negative Vital Signs Past 8 Hours: Last 8 Hrs Date Time Temp Pulse Resp B/P Pulse Ox O2 Delivery O2 Flow Rate FiO2 10/10/16 08:20 36.7 78 18 113/49 90 Room Air 10/10/16 07:12 73 16 96 Nasal Cannula 2.0 10/10/16 02:28 85 16 97 Nasal Cannula 2.0 Physical Exam General Appearance: WD/WN, no apparent distress Ears, Nose, Throat: normal ENT inspection, hearing grossly normal Neck: non-tender, full range of motion, supple, normal inspection Respiratory: chest non-tender, lungs clear, normal breath sounds, no respiratory distress Cardiovascular: normal peripheral pulses, regular rate, rhythm, systolic murmur (3/6 systolic ejection murmur heard best at the right sternal border; holosystolic murmur noted at the apex.), other Gastrointestinal: non tender, soft Extremities: normal range of motion, non-tender Neurologic/Psychiatric: no motor/sensory deficits, alert, normal mood/affect, oriented x 3 Medications Medications: Current Inpatient Medications Medications (Trade) Dose Ordered Sig/Phillip Route Start Time Stop Time Status Last Admin Dose Admin Ioversol (Optiray 320) 100 ml UD PRN IV 10/06/16 17:00 10/10/16 16:59 Acetaminophen (Tylenol Tab) 650 mg Q4H PRN PO 10/06/16 20:00 11/05/16 19:59 Cholecalciferol (Vitamin D Tab) 1,000 inter.unit DAILY PO 10/07/16 09:00 11/06/16 08:59 10/10/16 08:24 1,000 INTER.UNIT Cyanocobalamin (Vitamin B-12 Tab) 1,000 mcg DAILY PO 10/07/16 09:00 11/06/16 08:59 10/10/16 08:25 1,000 MCG Diltiazem HCl (TIAzac CAP) 240 mg DAILY PO 10/07/16 09:00 11/06/16 08:59 10/10/16 08:23 240 MG Levothyroxine Sodium (Synthroid Tab) 75 mcg DAILYBB PO 10/07/16 06:00 11/06/16 06:59 10/10/16 06:01 75 MCG Lisinopril (Zestril Tab) 20 mg DAILY PO 10/07/16 09:00 11/06/16 08:59 10/10/16 08:24 20 MG Pravastatin Sodium (Pravachol Tab) 20 mg HS PO 10/06/16 21:00 11/05/16 20:59 10/09/16 19:47 20 MG Ondansetron HCl 4 mg 4 mg Q6H PRN IV 10/06/16 20:15 11/05/16 20:14 Acetaminophen (Ofirmev Iv) 100 ml @ 400 mls/hr Q8H PRN IV 10/06/16 20:15 11/05/16 20:14 10/06/16 22:02 400 MLS/HR Ipratropium [place] (Atrovent 0.02% 0.5MG/2.5ML Neb) 0.5 mg Q6R INH 10/06/16 21:00 11/05/16 20:59 10/10/16 07:12 0.5 MG Levalbuterol (Xopenex 1.25MG/ 0.5ML Neb) 1.25 mg Q6R INH 10/06/16 21:00 11/05/16 20:59 10/10/16 07:12 1.25 MG Ipratropium [place] (Atrovent 0.02% 0.5MG/2.5ML Neb) 0.5 mg Q2H PRN INH 10/06/16 20:30 11/05/16 20:29 Levalbuterol 1.25 mg 1.25 mg Q2H PRN INH 10/06/16 20:30 11/05/16 20:29 Pantoprazole Sodium/Dextrose (Protonix Inj/D5 100ml) 100 ml @ 20 mls/hr Q5H IV 10/07/16 18:30 11/06/16 18:29 10/10/16 11:49 20 MLS/HR Furosemide (Lasix Tab) 40 mg QAM PO 10/09/16 09:00 11/08/16 08:59 10/10/16 08:26 40 MG Potassium Chloride (Klor-Con Tab) 20 meq BID PO 10/09/16 21:00 11/08/16 20:59 10/10/16 08:25 20 MEQ Insulin Aspart (novoLOG ASPART) SLIDING SCALE If C... ACHS SC 10/09/16 21:00 11/08/16 20:59 10/10/16 11:55 4 UNITS Glucose (Glucose 40% Gel) 15-30 GRAMS 15 GRAMS... UD PRN PO 10/09/16 18:00 11/08/16 17:59 Glucose (Glucose Chew Tab) 4-8 Tablets 4 Tabl... UD PRN PO 10/09/16 18:00 11/08/16 17:59 Dextrose (Dextrose 50% 50ML Syringe) 25-50ML OF 50% DW IV FOR... UD PRN IV 10/09/16 18:00 11/08/16 17:59 Glucagon 1 mg 1 mg UD PRN SQ 10/09/16 18:00 11/08/16 17:59 Methylprednisolone Sodium Succinate/ Syringe (Solu-Medrol IV/ Syringe) 0.32 ml @ 1.5 mls/min Q12 IV 10/10/16 21:00 11/09/16 20:59 Nystatin (Mycostatin Susp) 5 ml QID PO 10/10/16 13:00 10/17/16 12:59 10/10/16 13:08 5 ML Laboratory Data Laboratory Data: Last 24 Hours Test 10/09/16 19:53 10/10/16 07:02 10/10/16 07:17 10/10/16 11:25 Bedside Glucose 190 mg/dl 165 mg/dl 276 mg/dl White Blood Count 11.56 K/uL Red Blood Count 3.31 M/uL Hemoglobin 10.2 g/dL Hematocrit 30.0 % Mean Corpuscular Volume 90.6 fL Mean Corpuscular Hemoglobin 30.8 pg Mean Corpuscular Hemoglobin Concent 34.0 g/dl RDW Standard Deviation 65.7 fL RDW Coefficient of Variation 20.6 % Platelet Count 87 K/uL Mean Platelet Volume 9.3 fL Absolute Reticulocyte Count 0.21 10^6/uL Percent Reticulocyte Count 6.4 % Sodium Level 139 mmol/L Potassium Level 3.9 mmol/L Chloride Level 102 mmol/L Carbon Dioxide Level 27 mmol/L Anion Gap 10.0 mmol/L Blood Urea Nitrogen 72 mg/dl Creatinine 2.30 mg/dl Est Creatinine Clear Calc Drug Dose 14.5 ml/min Estimated GFR () 21.3 Estimated GFR (Non- 18.4 BUN/Creatinine Ratio 31.3 Random Glucose 167 mg/dl Estimated Average Glucose 91 mg/dl Hemoglobin A1c 4.8 % Calcium Level 8.4 mg/dl Test 10/10/16 16:01 Bedside Glucose 141 mg/dl Assessment and Plan Anemia/Thrombocytopenia HgB > 10, stable and slightly improved Appreciate GI consult - continue pantoprazole drip, not for EGD currently Hematology consult pending Acute hypoxic respiratory failure with diffuse bilateral airspace opacities - improving with BiPAP and blood transfusion, ARDS vs. alveolar hemorrhage vs. pulmonary edema Appreciate pulmonology recommendations - CT: acute alveolar hemorrhage vs. pulmonary edema - previous hemoptysis suggests some alveolar hemorrhage but not enough to cause her severe anemia - antibiotics stopped and procalcitonin minimally raised, unlikely infective etiology given significant improvement Valvular heart disease with possible pulmonary edema Appreciate cardiology recommendations LVEF 55-60% with mildly dilated left atrium, moderate mitral regurgitation, mild mitral stenosis, severe calcific aortic valve stenosis Continue ACEi Acute kidney injury Appreciate nephrology recommendations Hold lasix Monitor clinically. Hyperglycemia, secondary to steroids ACHS BSGs aim 140-180 Insulin with correction 30 Taper steroids Non acute issues CAD/paroxysmal atrial fibrillation/hypertension Continue diltiazem controlled release 240 mg PO daily No anticoagulation secondary to GI bleed Hx PE 2007 - not on anticoagulation secondary to GI bleed, LE Doppler clear on this admission Hx Nephrotic syndrome 2008 - proteinuria new since previous admission, nephrology consult Hypothyroidism - continue levothyroxine VTE prophylaxis SCDs Chemical prophylaxis contraindicated secondary to anemia and hemoptysis Code - DNR - DNI (unless would benefit for a temporary reversible condition, POLST form done to this effect) - 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
[2016-10-10] MEDS: METHYLPREDNISOLONE IV 20 MG in SYRINGE 0 ML IV SCH (21:35)
[2016-10-10] MEDS: PRAVASTATIN SOD 20 MG TAB PO SCH (21:38)
[2016-10-11 00:12] VITALS: BP 131/61; PULSE 70; TEMP 36.7; O2SAT 92
[2016-10-11] MEDS: LEValbuterol HFA 15GM INHALER INH SCH ×4 (00:51→17:57)
[2016-10-11] MEDS: IPRATROPIUM BROMIDE HFA INHALER INH SCH ×4 (00:51→17:57)
[2016-10-11] MEDS: PANTOprazole INJ 40 MG in DEXTROSE 5% 100ML IV SCH ×3 (02:31→12:34)
[2016-10-11] MEDS: LEVOTHYROXINE 75 MCG TAB PO SCH (05:12)
[2016-10-11 07:49] LABS: HEMATOCRIT 30.4 % (37-47); MEAN CELL VOLUME 92.4 fL (80-100); MEAN CORPUSCULAR HEMOGLOBIN 31.3 pg (25-34); MEAN CORPUSCULAR HGB CONC 33.9 g/dl (32-36); RED BLOOD COUNT 3.29 M/uL (4.2-5.4); WHITE BLOOD COUNT 8.61 K/uL (4.8-10.8)
--- NOTE | 2016-10-11 07:54 | DIAGNOSTIC IMAGING REPORT ---
CHEST ONE VIEW PORTABLE CLINICAL HISTORY: Pulmonary edema COMPARISON STUDY: 10/09/2016 FINDINGS: The heart is mildly enlarged. There are improving bilateral pulmonary airspace opacities. Trace pleural effusions are suspected. There is an old proximal left humeral fracture.[ IMPRESSION: Improving bilateral pulmonary airspace opacities. Trace pleural effusions. Electronically signed by: Logan Fuller M.D. 10/11/2016 7:52 AM Dictated Date/Time: 10/11/2016 7:51 AM
[2016-10-11 08:13] LABS: MEAN PLATELET VOLUME 9.4 fL (7.4-10.4); PLATELET COUNT 76 K/uL (130-400)
[2016-10-11 08:22] LABS: BUN/CREATININE RATIO 38.2 (10-20); CALCIUM 8.3 mg/dl (8.5-10.1); POTASSIUM 4.2 mmol/L (3.5-5.1)
[2016-10-11 08:23] VITALS: BP 136/68; PULSE 71; TEMP 36.6; O2SAT 95
[2016-10-11] MEDS: INSULIN ASPART 100 UNITS/ML 3 ML PEN SC SCH ×4 (08:36→21:24)
[2016-10-11] MEDS: CYANOCOBALAMIN 500 MCG TAB (VIT B-12) PO SCH (08:53)
[2016-10-11] MEDS: DILTIAZEM HCL 120 MG EXT REL CAP PO SCH (08:53)
[2016-10-11] MEDS: FUROSEMIDE 40 MG TAB PO SCH (08:54)
[2016-10-11] MEDS: LISINOPRIL 20 MG TAB PO SCH (08:54)
[2016-10-11] MEDS: POTASSIUM CHLORIDE 20 MEQ TABCR PO SCH ×2 (08:54→21:18)
[2016-10-11] MEDS: CHOLECALCIFEROL 1000 INTER.UNIT TAB PO SCH (08:54)
[2016-10-11] MEDS: NYSTATIN SUSP 500,000 U/5 ML UDC PO SCH ×4 (08:55→21:18)
[2016-10-11] MEDS: METHYLPREDNISOLONE IV 20 MG in SYRINGE 0 ML IV SCH ×2 (08:55→21:17)
--- NOTE | 2016-10-11 12:06 | Nephrology Progress Note ---
Nephrology Progress Note Date of Service Oct 11, 2016. Chief Complaint Follow-up for acute kidney injury with history of chronic kidney disease. Ion Tavares was seen and examined in her room this morning. She is complaining of some discomforted and irritation in her throat but denies any shortness of breath or chest pain. No fever or chills overnight. Renal function stable creatinine slightly improved to 2.0 however has been variable from 1.9-2.2, electrolyte acceptable, blood pressure and volume status stable. Review of Systems A complete review of systems was performed. Pertinent positives are noted above. All other systems are negative. Vital Signs Last 8 Hrs Date Time Temp Pulse Resp B/P Pulse Ox O2 Delivery O2 Flow Rate FiO2 10/11/16 08:23 36.6 71 20 136/68 95 10/11/16 08:15 Room Air I & O 24-Hour Column 10/11/16 07:59 Intake Total 952 ml Output Total 1150 ml Balance -198 ml Last Recorded Weight Weight (Kilograms): 52.500 Physical Exam GENERAL: Elderly female, AAA x 3, pleasant, healthy-appearing, not in any distress. NECK: Supple, no JVD. RESPIRATORY: Normal breathing efforts, no accessory muscle use, clear to auscultation bilaterally, no wheezes or rales. CARDIOVASCULAR: S1, S2 normal, rate rhythm regular. EXTREMITY: No lower extremity edema NEURO: speech fluent. PSYCHIATRY: Normal mood and judgment Family History Heart disease Negative for CKD / ESRD Social History Drug Use: none Marital Status: Housing Status: lives with family 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 . Lives alone. Son (Travis) is nearby and very supportive. Retired from [employer]. Never a smoker Laboratory Results Past 24 Hours 10/11/16 06:57 10/11/16 06:57 Test 10/10/16 16:01 10/10/16 19:33 10/11/16 06:57 10/11/16 07:20 Bedside Glucose 141 mg/dl (70-90) 207 mg/dl (70-90) 158 mg/dl (70-90) Red Blood Count 3.29 M/uL (4.2-5.4) Mean Corpuscular Volume 92.4 fL (80-100) Mean Corpuscular Hemoglobin 31.3 pg (25-34) Mean Corpuscular Hemoglobin Concent 33.9 g/dl (32-36) RDW Standard Deviation 66.4 fL (36.4-46.3) RDW Coefficient of Variation 20.5 % (11.5-14.5) Mean Platelet Volume 9.4 fL (7.4-10.4) Absolute Reticulocyte Count 0.20 10^6/uL (0.02-0.10) Percent Reticulocyte Count 6.0 % (0.5-2.0) Anion Gap 11.0 mmol/L (3-11) Est Creatinine Clear Calc Drug Dose 16.1 ml/min Estimated GFR () 25.2 Estimated GFR (Non- 21.7 BUN/Creatinine Ratio 38.2 (10-20) Calcium Level 8.3 mg/dl (8.5-10.1) Test 10/11/16 10:15 10/11/16 11:02 Stool Occult Blood POSITIVE (NEGATIVE) Stool Occult Blood Sample #2 POSITIVE (NEGATIVE) Stool Occult Blood Sample #3 POSITIVE (NEGATIVE) Bedside Glucose 214 mg/dl (70-90) Allergies Coded Allergies: Doxycycline (Verified Allergy, Severe, RASH, 09/22/16) Trimethoprim (Verified Allergy, Severe, RASH, 09/22/16) Adhesives (Verified Allergy, Unknown, HAD RXN TO [employer]ES, ) Atorvastatin (Unverified Allergy, Unknown, UNKNOWN, 10/06/16) Carbamazepine (Verified Allergy, Unknown, 10/06/16) Hydantoins (Verified Allergy, Unknown, 09/22/16) Levofloxacin (Unverified Allergy, Unknown, UNKNOWN, 10/06/16) Penicillins (Verified Allergy, Unknown, AMOXIL, 10/07/16) has tolerated cefepime and ceftriaxone on previous admissions Phenytoin (Verified Allergy, Unknown, 10/06/16) Medications Current Inpatient Medications Medications (Trade) Dose Ordered Sig/Phillip Route Start Time Stop Time Status Last Admin Dose Admin Acetaminophen (Tylenol Tab) 650 mg Q4H PRN PO 10/06/16 20:00 11/05/16 19:59 Cholecalciferol (Vitamin D Tab) 1,000 inter.unit DAILY PO 10/07/16 09:00 11/06/16 08:59 10/11/16 08:54 1,000 INTER.UNIT Cyanocobalamin (Vitamin B-12 Tab) 1,000 mcg DAILY PO 10/07/16 09:00 11/06/16 08:59 10/11/16 08:53 1,000 MCG Diltiazem HCl (TIAzac CAP) 240 mg DAILY PO 10/07/16 09:00 11/06/16 08:59 10/11/16 08:53 240 MG Levothyroxine Sodium (Synthroid Tab) 75 mcg DAILYBB PO 10/07/16 06:00 11/06/16 06:59 10/11/16 05:12 75 MCG Lisinopril (Zestril Tab) 20 mg DAILY PO 10/07/16 09:00 11/06/16 08:59 10/11/16 08:54 20 MG Pravastatin Sodium (Pravachol Tab) 20 mg HS PO 10/06/16 21:00 11/05/16 20:59 10/10/16 21:38 20 MG Ondansetron HCl 4 mg 4 mg Q6H PRN IV 10/06/16 20:15 11/05/16 20:14 Acetaminophen (Ofirmev Iv) 100 ml @ 400 mls/hr Q8H PRN IV 10/06/16 20:15 11/05/16 20:14 10/06/16 22:02 400 MLS/HR Ipratropium [place] (Atrovent 0.02% 0.5MG/2.5ML Neb) 0.5 mg Q2H PRN INH 10/06/16 20:30 11/05/16 20:29 Levalbuterol 1.25 mg 1.25 mg Q2H PRN INH 10/06/16 20:30 11/05/16 20:29 Pantoprazole Sodium/Dextrose (Protonix Inj/D5 100ml) 100 ml @ 20 mls/hr Q5H IV 10/07/16 18:30 11/06/16 18:29 10/11/16 08:21 20 MLS/HR Furosemide (Lasix Tab) 40 mg QAM PO 10/09/16 09:00 11/08/16 08:59 10/11/16 08:54 40 MG Potassium Chloride (Klor-Con Tab) 20 meq BID PO 10/09/16 21:00 11/08/16 20:59 10/11/16 08:54 20 MEQ Insulin Aspart (novoLOG ASPART) SLIDING SCALE If C... ACHS SC 10/09/16 21:00 11/08/16 20:59 10/11/16 08:36 2 UNITS Glucose (Glucose 40% Gel) 15-30 GRAMS 15 GRAMS... UD PRN PO 10/09/16 18:00 11/08/16 17:59 Glucose (Glucose Chew Tab) 4-8 Tablets 4 Tabl... UD PRN PO 10/09/16 18:00 11/08/16 17:59 Dextrose (Dextrose 50% 50ML Syringe) 25-50ML OF 50% DW IV FOR... UD PRN IV 10/09/16 18:00 11/08/16 17:59 Glucagon 1 mg 1 mg UD PRN SQ 10/09/16 18:00 11/08/16 17:59 Methylprednisolone Sodium Succinate/ Syringe (Solu-Medrol IV/ Syringe) 0.32 ml @ 1.5 mls/min Q12 IV 10/10/16 21:00 11/09/16 20:59 10/11/16 08:55 1.5 MLS/MIN Nystatin (Mycostatin Susp) 5 ml QID PO 10/10/16 13:00 10/17/16 12:59 10/11/16 08:55 5 ML Ipratropium [place] (Atrovent Hfa Inhaler) 2 puffs Q6 INH 10/11/16 00:00 11/10/16 00:00 10/11/16 05:12 2 PUFFS Levalbuterol (Xopenex Hfa Inhaler) 2 puffs Q6 INH 10/11/16 00:00 11/10/16 00:00 10/11/16 05:12 2 PUFFS Impression (1) ANA PAULA (acute kidney injury) (2) Chronic kidney disease, stage 3 (3) Anemia (4) ARDS (adult respiratory distress syndrome) Patient admitted to the hospital w/ recurrent CHF and profound anemia. She has developed acute on chronic kidney injury due to hemodynamic insult. Need to assess for cause of recurrent anemia (GI blood loss vs. myelofibrosis vs. hemolytic anemia vs. pulmonary hemorrhage). Recommendations ACUTE KIDNEY INJURY: -- creatinine has been variable but overall remained stable around 2, 2.0 this morning, other electrolyte and volume status stable of she has been net negative for last 4 5 days --discontinue Hu catheter, monitor intake and output -- encourage patient to increase fluid intake -- hold diuretics for now, aim for net even -- Monitor serial PRP -- Avoid known nephrotoxic agents CHRONIC KIDNEY DISEASE: -- Baseline creatinine has been 1.4 ANEMIA: -- Has iron deficiency despite recent blood transfusions -- FOBT X 3 is + hemoglobin remained stable, may need GI evaluation if patient is agreeable -- B12 and folate are normal -- Patient has high LDH w/ low haptoglobin -- Recommend transfusion to maintain Hgb > 10 -- Consider hematology evaluation PULMONARY INFILTRATES: -- Echocardiogram 09/25 reviewed today. Severe . Preserved LVEF -- Pulmonology infiltrates have improved w/ diuretic therapy
--- NOTE | 2016-10-11 14:42 | HEME/ONC PROGRESS NOTE ---
DATE: 10/11/2016 DIAGNOSES: 1. Persistent anemia, etiology unclear. 2. Suspected lower gastrointestinal bleeding. 3. Thrombocytopenia. 4. Acute hypoxic respiratory failure. HOSPITAL COURSE: Anusha is a pleasant 86-year-old female patient who was admitted back on the for persistent difficulty breathing. She had a previous hospital admission September 22 to the with similar symptomatology and received 3 units of packed RBCs. The patient has documented fecal occult blood. Because of her comorbid issues gastroenterology is reluctant to pursue scoping at this time. I had also raised the issue of possible hemolytic process which for the most part has been ruled out. Reticulocytosis has remained stable as is her hemoglobin level in the last 24 hours. Her platelet count is down a bit, but again relatively stable. She offers no complaints today. PHYSICAL EXAMINATION: GENERAL: She is in no acute distress. VITAL SIGNS: Temperature 36.6, pulse 71, respiratory rate 20, blood pressure 136/68. SKIN: Without rash or lesion. HEENT: Oral mucosa without erythema or ulceration. NECK: Supple. HEART: Regular rate and rhythm. LUNGS: Clear to auscultation bilaterally. ABDOMEN: Soft, nontender, nondistended, without palpable hepatosplenomegaly. EXTREMITIES: No clubbing, cyanosis or edema. NEUROLOGIC: Nonfocal. LABORATORY DATA: WBC count 86.10, hemoglobin 10.3, platelet count 76,000, reticulocyte count 6% down from 6.4% yesterday. Chemistry: Sodium 139, potassium 4.2, chloride 103, carbon dioxide 25, BUN 76, creatinine 2. IMPRESSION: 1. Persistent anemia, etiology unclear. 2. Thrombocytopenia. 3. Positive stool for occult blood. 4. Acute renal injury. 5. Paroxysmal atrial fibrillation. PLAN: Anusha was seen and examined at bedside today. Clinically, she seems to be doing the same, no other specific complaints. She is tolerating her diet and ambulating with minimal assistance. As for her peripheral blood counts, hemoglobin and platelet count for the most part have remained stable. Again, await gastroenterology's impression on how to evaluate her GI tract. Iron studies suggest a mild deficiency stay with serum iron of 25, TIBC 266, ferritin presently at 247.4. We will continue to follow Anusha periodically throughout her hospital stay. I will also make arrangements for outpatient followup upon discharge. Thank you very much for allowing us to participate in the care of this very pleasant patient.
--- NOTE | 2016-10-11 14:50 | PULMONARY PROGRESS NOTE ---
DATE: 10/11/2016 TIME: 2:00 p.m. SUBJECTIVE: The patient continues to feel better. She is less short of breath each day over the past several days. She is now on room air. She did expectorate a small amount of blood on one occasion today. She said it looked dark. She is not having any chest pains, chills, fevers or sweats. OBJECTIVE: GENERAL: The patient is comfortable at rest. VITAL SIGNS: Temperature is 36.6. Heart rate is 70 beats per minute. Systolic murmur grade 2-3/6 was heard. Blood pressure 136/68. Respiratory rate 20 breaths per minute. LUNGS: Auscultation revealed a few fine rales posteriorly bilaterally. These are much less than had been heard a couple of days ago. Saturation on room air is 95%. EXTREMITIES: Showed no significant edema. LABORATORIES: Electrolytes show sodium 139, potassium 4.2, chloride 103 and bicarbonate 25. BUN is 76 with a creatinine of 2.0. Yesterday's BUN was 72 and creatinine yesterday was 2.3. Chest x-ray done today shows significant improvement in the bilateral pulmonary alveolar disease. Trace effusions are suspected. IMPRESSION: 1. Respiratory failure with hypoxia -- significantly improved. 2. Hemoptysis and diffuse alveolar hemorrhage. 3. Pulmonary edema/volume overload -- improved. 4. Oral candidiasis. 5. Renal insufficiency. COMMENTS AND RECOMMENDATIONS: The patient clinically is doing much better. Nephrology feels we should now stop the diuretics and I am fine to watch that and see how it goes. We would continue with the bronchodilators. She is still on the steroids. It is possible the steroids are actually what have improved her status. We are not certain at present. Clearly, however, she did diurese significantly. She still has a fair amount of urine in her Hu from today. Yesterday, her diuresis was 1675 which is fairly significant. White count today was 8.61 with a hemoglobin of 10.3. Her case was discussed with Dr. Lucia and I did review the x-rays with him. Dr. La will see the patient as of tomorrow. [facility]
[2016-10-11 15:26] VITALS: BP 121/72; PULSE 69; TEMP 36.4; O2SAT 95
--- NOTE | 2016-10-11 15:49 | Progress Note ---
Progress Note Date of Service: Oct 11, 2016. Subjective: The patient seen earlier this afternoon; she is out of bed and seated. She has no complaints and reports that she is feeling better. She does note that she expectorated a small amount of dark red blood - this was a single event since I saw her yesterday. She doesn't some mild discomfort secondary to oral candidiasis, which is currently being treated. She denies chest pain or shortness of breath. She is on room air at the moment ; she tells me that she is able to get up and go to the bathroom without any shortness of breath. I discussed the case with both nephrology and pulmonology this afternoon. Hematology consultation is also reviewed. Review of Systems Problem List Medical Problems: (1) Acute kidney injury Status: Acute (2) Anemia Status: Acute (3) Chronic anemia Status: Acute (4) Elevated troponin Status: Acute (5) Hypoxia Status: Acute General Appearance: no apparent distress Constitutional: denies: fever, weakness EENTM: acknowledges: no symptoms reported Respiratory: positive: cough (hemoptysis as noted above.), negative: orthopnea , short of breath, stridor Cardiovascular: denies chest pain Gastrointestinal/Abdominal: negative: abdominal pain (abdominal pain, present yesterday, has resolved since yesterday's bowel movement), constipation, diarrhea, nausea Genitourinary: negative dysuria, negative frequency Hematologic/Lymphatic: positive: anemia Immunocompromise: positive: no symptoms reported Vital Signs Past 8 Hours: Last 8 Hrs Date Time Temp Pulse Resp B/P Pulse Ox O2 Delivery O2 Flow Rate FiO2 10/11/16 15:26 36.4 69 20 121/72 95 Room Air 10/11/16 08:23 36.6 71 20 136/68 95 10/11/16 08:15 Room Air Physical Exam General Appearance: WD/WN Eye Exam: bilateral eye EOMI, bilateral eye PERRL, bilateral eye normal inspection Ears, Nose, Throat: normal ENT inspection, hearing grossly normal Neck: non-tender, full range of motion, supple, normal inspection, trachea midline Respiratory: chest non-tender, lungs clear, no respiratory distress, no accessory muscle use, rales, wheezing (lungs are improved, there is scant rales heard in the posterior meyer bilaterally. There is no wheezing appreciated.) Cardiovascular: normal peripheral pulses, regular rate, rhythm, systolic murmur Gastrointestinal: non tender, no organomegaly Extremities: non-tender, normal inspection, no pedal edema Neurologic/Psychiatric: no motor/sensory deficits, alert, normal mood/affect, oriented x 3 Medications Medications: Current Inpatient Medications Medications (Trade) Dose Ordered Sig/Phillip Route Start Time Stop Time Status Last Admin Dose Admin Acetaminophen (Tylenol Tab) 650 mg Q4H PRN PO 10/06/16 20:00 11/05/16 19:59 Cholecalciferol (Vitamin D Tab) 1,000 inter.unit DAILY PO 10/07/16 09:00 11/06/16 08:59 10/11/16 08:54 1,000 INTER.UNIT Cyanocobalamin (Vitamin B-12 Tab) 1,000 mcg DAILY PO 10/07/16 09:00 11/06/16 08:59 10/11/16 08:53 1,000 MCG Diltiazem HCl (TIAzac CAP) 240 mg DAILY PO 10/07/16 09:00 11/06/16 08:59 10/11/16 08:53 240 MG Levothyroxine Sodium (Synthroid Tab) 75 mcg DAILYBB PO 10/07/16 06:00 11/06/16 06:59 10/11/16 05:12 75 MCG Lisinopril (Zestril Tab) 20 mg DAILY PO 10/07/16 09:00 11/06/16 08:59 10/11/16 08:54 20 MG Pravastatin Sodium (Pravachol Tab) 20 mg HS PO 10/06/16 21:00 11/05/16 20:59 10/10/16 21:38 20 MG Ondansetron HCl 4 mg 4 mg Q6H PRN IV 10/06/16 20:15 11/05/16 20:14 Acetaminophen (Ofirmev Iv) 100 ml @ 400 mls/hr Q8H PRN IV 10/06/16 20:15 11/05/16 20:14 10/06/16 22:02 400 MLS/HR Ipratropium [place] (Atrovent 0.02% 0.5MG/2.5ML Neb) 0.5 mg Q2H PRN INH 10/06/16 20:30 11/05/16 20:29 Levalbuterol 1.25 mg 1.25 mg Q2H PRN INH 10/06/16 20:30 11/05/16 20:29 Pantoprazole Sodium/Dextrose (Protonix Inj/D5 100ml) 100 ml @ 20 mls/hr Q5H IV 10/07/16 18:30 11/06/16 18:29 10/11/16 12:34 20 MLS/HR Potassium Chloride (Klor-Con Tab) 20 meq BID PO 10/09/16 21:00 11/08/16 20:59 10/11/16 08:54 20 MEQ Insulin Aspart (novoLOG ASPART) SLIDING SCALE If C... ACHS SC 10/09/16 21:00 11/08/16 20:59 10/11/16 12:55 2 UNITS Glucose (Glucose 40% Gel) 15-30 GRAMS 15 GRAMS... UD PRN PO 10/09/16 18:00 11/08/16 17:59 Glucose (Glucose Chew Tab) 4-8 Tablets 4 Tabl... UD PRN PO 10/09/16 18:00 11/08/16 17:59 Dextrose (Dextrose 50% 50ML Syringe) 25-50ML OF 50% DW IV FOR... UD PRN IV 10/09/16 18:00 11/08/16 17:59 Glucagon 1 mg 1 mg UD PRN SQ 10/09/16 18:00 11/08/16 17:59 Methylprednisolone Sodium Succinate/ Syringe (Solu-Medrol IV/ Syringe) 0.32 ml @ 1.5 mls/min Q12 IV 10/10/16 21:00 11/09/16 20:59 10/11/16 08:55 1.5 MLS/MIN Nystatin (Mycostatin Susp) 5 ml QID PO 10/10/16 13:00 10/17/16 12:59 10/11/16 12:33 5 ML Ipratropium [place] (Atrovent Hfa Inhaler) 2 puffs Q6 INH 10/11/16 00:00 11/10/16 00:00 10/11/16 12:32 2 PUFFS Levalbuterol (Xopenex Hfa Inhaler) 2 puffs Q6 INH 10/11/16 00:00 11/10/16 00:00 10/11/16 12:32 2 PUFFS Laboratory Data Laboratory Data: 10/11/16 06:57 10/11/16 06:57 Test 10/11/16 06:57 10/11/16 10:15 10/11/16 11:02 Red Blood Count 3.29 M/uL (4.2-5.4) Mean Corpuscular Volume 92.4 fL (80-100) Mean Corpuscular Hemoglobin 31.3 pg (25-34) Mean Corpuscular Hemoglobin Concent 33.9 g/dl (32-36) RDW Standard Deviation 66.4 fL (36.4-46.3) RDW Coefficient of Variation 20.5 % (11.5-14.5) Mean Platelet Volume 9.4 fL (7.4-10.4) Absolute Reticulocyte Count 0.20 10^6/uL (0.02-0.10) Percent Reticulocyte Count 6.0 % (0.5-2.0) Anion Gap 11.0 mmol/L (3-11) Est Creatinine Clear Calc Drug Dose 16.1 ml/min Estimated GFR () 25.2 Estimated GFR (Non- 21.7 BUN/Creatinine Ratio 38.2 (10-20) Calcium Level 8.3 mg/dl (8.5-10.1) Stool Occult Blood POSITIVE (NEGATIVE) Stool Occult Blood Sample #2 POSITIVE (NEGATIVE) Stool Occult Blood Sample #3 POSITIVE (NEGATIVE) Bedside Glucose 214 mg/dl (70-90) Assessment and Plan Acute hypoxic respiratory failure with diffuse bilateral airspace opacities Hemoptysis and diffuse alveolar hemorrhage Markedly improved compared to admission both clinically and upon x-ray. Is not clear what made the most improvement, diuresis or IV steroids, or combination of both. Agree with holding diuretics at this point based on nephrology recommendation. We'll begin tapering steroids tomorrow. Anemia/Thrombocytopenia HgB > 10, stable and slightly improved We'll change Protonix from IV to by mouth Hematology consult appreciated Valvular heart disease with possible pulmonary edema Appreciate cardiology recommendations LVEF 55-60% with mildly dilated left atrium, moderate mitral regurgitation, mild mitral stenosis, severe calcific aortic valve stenosis Continue ACEi Acute kidney injury Appreciate nephrology recommendations Hold lasix Monitor clinically. Hyperglycemia, secondary to steroids ACHS BSGs aim 140-180 Insulin with correction 30 Taper steroids Non acute issues CAD/paroxysmal atrial fibrillation/hypertension Continue diltiazem controlled release 240 mg PO daily No anticoagulation secondary to bleeding Hx PE 2007 - not on anticoagulation secondary to GI bleed, LE Doppler clear on this admission Hx Nephrotic syndrome 2008 - proteinuria new since previous admission, nephrology consult Hypothyroidism - continue levothyroxine VTE prophylaxis SCDs Chemical prophylaxis contraindicated secondary to anemia and hemoptysis Code - DNR - DNI (unless would benefit for a temporary reversible condition, POLST form done to this effect) - Not for [employer] feeding but would accept trial of artificial hydration.
[2016-10-11 16:22] VITALS: O2SAT 90
[2016-10-11] MEDS ORDERED: COUGH DROP (SUGAR FREE) LOZ 24 LOZ/1 BOX PO PRN (18:00)
[2016-10-11] MEDS ORDERED: NURSING DECISION MEDICATION ORDER ONE (18:00)
[2016-10-11] MEDS: PRAVASTATIN SOD 20 MG TAB PO SCH (21:18)
[2016-10-11 22:55] VITALS: BP 111/52; PULSE 71; TEMP 36.4; O2SAT 99
[2016-10-12] MEDS: LEVOTHYROXINE 75 MCG TAB PO SCH (05:49)
[2016-10-12 05:55] LABS: HEMATOCRIT 31.1 % (37-47); MEAN CELL VOLUME 94.2 fL (80-100); MEAN CORPUSCULAR HEMOGLOBIN 31.2 pg (25-34); MEAN CORPUSCULAR HGB CONC 33.1 g/dl (32-36)
[2016-10-12 05:56] LABS: MEAN PLATELET VOLUME 9.5 fL (7.4-10.4); PLATELET COUNT 68 K/uL (130-400)
[2016-10-12 06:22] LABS: BUN/CREATININE RATIO 36.4 (10-20); CALCIUM 8.1 mg/dl (8.5-10.1); POTASSIUM 4.4 mmol/L (3.5-5.1)
[2016-10-12 07:06] VITALS: BP 159/72; PULSE 87; TEMP 36.3; O2SAT 95
[2016-10-12] MEDS: LEValbuterol HFA 15GM INHALER INH SCH ×4 (07:11→18:35)
[2016-10-12] MEDS: IPRATROPIUM BROMIDE HFA INHALER INH SCH ×4 (07:11→18:35)
[2016-10-12 07:30] VITALS: O2SAT 95
[2016-10-12] MEDS: PANTOprazole SOD 40 MG TAB PO SCH (08:07)
[2016-10-12] MEDS: POTASSIUM CHLORIDE 20 MEQ TABCR PO SCH ×2 (08:07→20:37)
[2016-10-12] MEDS: CYANOCOBALAMIN 500 MCG TAB (VIT B-12) PO SCH (08:08)
[2016-10-12] MEDS: CHOLECALCIFEROL 1000 INTER.UNIT TAB PO SCH (08:08)
[2016-10-12 08:09] VITALS: BP 134/56; PULSE 81
[2016-10-12] MEDS: DILTIAZEM HCL 120 MG EXT REL CAP PO SCH (08:12)
[2016-10-12] MEDS: LISINOPRIL 20 MG TAB PO SCH (08:13)
[2016-10-12] MEDS: INSULIN ASPART 100 UNITS/ML 3 ML PEN SC SCH ×4 (08:14→20:43)
[2016-10-12] MEDS: NYSTATIN SUSP 500,000 U/5 ML UDC PO SCH ×4 (08:15→20:36)
--- NOTE | 2016-10-12 08:52 | DIAGNOSTIC IMAGING REPORT ---
CHEST 2 VIEWS ROUTINE CLINICAL HISTORY: hemorrhage hypoxia COMPARISON STUDY: 10/11/2016 FINDINGS: Mild improvement of the bilateral parenchymal infiltrative and interstitial change. Minimal atelectasis left base. No significant cardiac enlargement. IMPRESSION: Mild improvement of the patient's bilateral interstitial infiltrative change. Electronically signed by: Kirill Escoto M.D. 10/12/2016 8:51 AM Dictated Date/Time: 10/12/2016 8:50 AM
--- NOTE | 2016-10-12 09:37 | Pulmonology Progress Note ---
Pulmonary Progress Note Date of Service Oct 12, 2016. Attending Dr. La Subjective Feeling generally improved today. Looking forward to increased ambulation/ activity as allowed. Describes 1-2 day h/o vocal hoarseness without pain or dyspnea. Reports lack of appropriate bowel movements despite escalation of bowel regimen - no abdominal pain. Last episode of hemoptysis + small amount of blood sputum reported yesterday morning. No further episodes overnight or this morning. Denies wheeze or dyspnea. Appetite is in-tact although distaste for low -sodium diet. Objective 86-yo female admitted to [facility] 10/06/16 with multisystem dysfunction including ANA PAULA /CKD, anemia/ heme+ stool, and hypoxic respiratory failure with hemoptysis. PMHx includes; CHF, chronic O2: 2lPM, CAD, HTN, CKD, h/o PE (2007), h/o TIA/CVA , h/o nephropathy requiring dialysiis in [id number], UTI, severe aortic stenosis , and atrial fibrillation. Of note: she had been admitted mid-September 2016 with hemoptysis/respiratory failure ddx alveolar hemorrhage unable to tolerate MV/ Bronchoscopy treated empirically with steroid. Patient admitted through [facility] via EMS from her PCP's office with lethargy/AMS, hypoxia, and recurrent hemoptysis. Labs notable for leukocytosis, anemia, ANA PAULA, and elevated BNP. AB.51/30/[id number]/23, She was treated acutely with BiPAP/ CPAP. CT Chest: dilation of the pulmonary artery, improvement of pleural effusions from prior, progressive diffuse/multifocal bilateral airspace opacification (progressed from 09/22). She was prescribed BiPAP 06/16, IV steroid , and diuresis. Her hospital course has been complicated with progressive anemia (requiring 2-unit blood transfusion) and ANA PAULA/CKD. She has been evaluated by nephrology, hematology/oncology, pulmonary, GI, cardiology and palliative care. Today: -O2: 95-99% RA - HD stable, - Wt: 52.5kg (56.6 on admission) - Refusing BiPAP/CPAP at night - Prednisone: 40mg - WBC: 7.9, Hgb/Hct: 10.3/31.1, Plts: 68 - Cr: 2, Co2: 27 - CXR 10/12: mild improvement in bilateral interstitial infiltrative change Physical Exam: Constitutional: Thin elderly female sitting in chair at bedside. NAD Head: + facial symmetry Eyes; EOMi, PERRAL, no injection Mouth Moist mucous membranes. No erythema or plaques on soft palate- posterior pharynx not visualized Respiratory: non-labored respirations. No wheeze or rhonchi. Scattered bibasilar crackles - fine and scant. CV: regular rate. III/ systolic murmur. Warm and perfused peripherally Abdomen: Soft, active bowel sounds MSK/Extremities: moving and developed symmetrically. Low muscle bulk. Trace edema left ankle. Neurologic: Alert, oriented to place and person. Follows commands appropriately. Assessment & Plan 86-yo female with recurrent hemoptysis - treat conservatively with slow down- taper of steroid decrease by 5mg Q 5-days and hold 25-mg until pulmonary follow- up post discharge. Patient reviewed and plan agreed upon. Data Medications: Current Inpatient Medications Medications (Trade) Dose Ordered Sig/Phillip Route Start Time Stop Time Status Last Admin Dose Admin Acetaminophen (Tylenol Tab) 650 mg Q4H PRN PO 10/06/16 20:00 11/05/16 19:59 Cholecalciferol (Vitamin D Tab) 1,000 inter.unit DAILY PO 10/07/16 09:00 11/06/16 08:59 10/12/16 08:08 1,000 INTER.UNIT Cyanocobalamin (Vitamin B-12 Tab) 1,000 mcg DAILY PO 10/07/16 09:00 11/06/16 08:59 10/12/16 08:08 1,000 MCG Diltiazem HCl (TIAzac CAP) 240 mg DAILY PO 10/07/16 09:00 11/06/16 08:59 10/12/16 08:12 240 MG Levothyroxine Sodium (Synthroid Tab) 75 mcg DAILYBB PO 10/07/16 06:00 11/06/16 06:59 10/12/16 05:49 75 MCG Lisinopril (Zestril Tab) 20 mg DAILY PO 10/07/16 09:00 11/06/16 08:59 10/12/16 08:13 20 MG Pravastatin Sodium (Pravachol Tab) 20 mg HS PO 10/06/16 21:00 11/05/16 20:59 10/11/16 21:18 20 MG Ondansetron HCl 4 mg 4 mg Q6H PRN IV 10/06/16 20:15 11/05/16 20:14 Acetaminophen (Ofirmev Iv) 100 ml @ 400 mls/hr Q8H PRN IV 10/06/16 20:15 11/05/16 20:14 10/06/16 22:02 400 MLS/HR Ipratropium [place] (Atrovent 0.02% 0.5MG/2.5ML Neb) 0.5 mg Q2H PRN INH 10/06/16 20:30 11/05/16 20:29 Levalbuterol (Xopenex 1.25MG/ 0.5ML Neb) 1.25 mg Q2H PRN INH 10/06/16 20:30 11/05/16 20:29 Potassium Chloride (Klor-Con Tab) 20 meq BID PO 10/09/16 21:00 11/08/16 20:59 10/12/16 08:07 20 MEQ Insulin Aspart (novoLOG ASPART) SLIDING SCALE If C... ACHS SC 10/09/16 21:00 11/08/16 20:59 10/11/16 21:24 2 UNITS Glucose (Glucose 40% Gel) 15-30 GRAMS 15 GRAMS... UD PRN PO 10/09/16 18:00 11/08/16 17:59 Glucose (Glucose Chew Tab) 4-8 Tablets 4 Tabl... UD PRN PO 10/09/16 18:00 11/08/16 17:59 Dextrose (Dextrose 50% 50ML Syringe) 25-50ML OF 50% DW IV FOR... UD PRN IV 10/09/16 18:00 11/08/16 17:59 Glucagon (Glucagon Inj) 1 mg UD PRN SQ 10/09/16 18:00 11/08/16 17:59 Nystatin (Mycostatin Susp) 5 ml QID PO 10/10/16 13:00 10/17/16 12:59 10/12/16 08:15 5 ML Ipratropium [place] (Atrovent Hfa Inhaler) 2 puffs Q6 INH 10/11/16 00:00 11/10/16 00:00 10/11/16 17:57 2 PUFFS Levalbuterol (Xopenex Hfa Inhaler) 2 puffs Q6 INH 10/11/16 00:00 5/2/17 00:00 10/11/16 17:57 2 PUFFS Pantoprazole Sodium (Protonix Tab) 40 mg QAM PO 10/12/16 09:00 11/11/16 08:59 10/12/16 08:07 40 MG Menthol (Nice Jil) 1 jil PRN PRN PO 10/11/16 18:00 11/10/16 17:59 Prednisone (PredniSONE TAB) 40 mg DAILY PO 10/12/16 09:00 10/15/16 08:59 I & O: 24-Hour Column 10/12/16 07:59 Intake Total 1020 ml Output Total 1545 ml Balance -525 ml Vital Signs: Date Time Temp Pulse Resp B/P Pulse Ox O2 Delivery O2 Flow Rate FiO2 10/12/16 08:09 81 134/56 10/12/16 07:30 95 Room Air 10/12/16 07:06 36.3 87 18 159/72 95 Room Air 10/11/16 23:55 Room Air 10/11/16 22:55 36.4 71 18 111/52 99 Room Air 10/11/16 16:22 90 Room Air 10/11/16 15:26 36.4 69 20 121/72 95 Room Air Laboratory Results: Last 24 Hours Test 10/11/16 10:15 10/11/16 11:02 10/11/16 16:07 10/11/16 20:21 Stool Occult Blood POSITIVE Stool Occult Blood Sample #2 POSITIVE Stool Occult Blood Sample #3 POSITIVE Bedside Glucose 214 mg/dl 145 mg/dl 220 mg/dl Test 10/12/16 05:20 10/12/16 07:15 White Blood Count 7.90 K/uL Red Blood Count 3.30 M/uL Hemoglobin 10.3 g/dL Hematocrit 31.1 % Mean Corpuscular Volume 94.2 fL Mean Corpuscular Hemoglobin 31.2 pg Mean Corpuscular Hemoglobin Concent 33.1 g/dl RDW Standard Deviation 68.0 fL RDW Coefficient of Variation 20.0 % Platelet Count 68 K/uL Mean Platelet Volume 9.5 fL Absolute Reticulocyte Count 0.17 10^6/uL Percent Reticulocyte Count 5.1 % Sodium Level 140 mmol/L Potassium Level 4.4 mmol/L Chloride Level 104 mmol/L Carbon Dioxide Level 27 mmol/L Anion Gap 9.0 mmol/L Blood Urea Nitrogen 73 mg/dl Creatinine 2.00 mg/dl Est Creatinine Clear Calc Drug Dose 16.1 ml/min Estimated GFR () 25.2 Estimated GFR (Non- 21.7 BUN/Creatinine Ratio 36.4 Random Glucose 135 mg/dl Calcium Level 8.1 mg/dl Bedside Glucose 128 mg/dl
--- NOTE | 2016-10-12 10:08 | Nephrology Progress Note ---
Nephrology Progress Note Date of Service Oct 12, 2016. Chief Complaint Follow-up for acute kidney injury with history of chronic kidney disease. Ion Tavares was seen and examined in her room this morning. She is overall feeling well, denies any shortness of breath or chest pain. She report no exertional dyspnea with going to bathroom and moving around this morning. No fever or chills overnight. Renal function stable, creatinine slightly improved to 2.0 however has been variable from 1.9-2.2, electrolyte acceptable, blood pressure and volume status stable. Hb stable. Review of Systems A complete review of systems was performed. Pertinent positives are noted above. All other systems are negative. Vital Signs Last 8 Hrs Date Time Temp Pulse Resp B/P Pulse Ox O2 Delivery O2 Flow Rate FiO2 10/12/16 08:09 81 134/56 10/12/16 07:06 36.3 87 18 159/72 95 Room Air I & O 24-Hour Column 10/12/16 08:00 Intake Total 1020 ml Output Total 1545 ml Balance -525 ml Last Recorded Weight Weight (Kilograms): 52.500 Physical Exam GENERAL: Elderly female, AAA x 3, pleasant, healthy-appearing, not in any distress. NECK: Supple, no JVD. RESPIRATORY: Normal breathing efforts, no accessory muscle use, clear to auscultation bilaterally, no wheezes or rales. CARDIOVASCULAR: S1, S2 normal, rate rhythm regular. EXTREMITY: No lower extremity edema NEURO: speech fluent. PSYCHIATRY: Normal mood and judgment Family History Heart disease Negative for CKD / ESRD Social History Drug Use: none Marital Status: Housing Status: lives with family 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 . Lives alone. Son (Travis) is nearby and very supportive. Retired from [employer]. Never a smoker Laboratory Results Past 24 Hours 10/12/16 05:20 10/12/16 05:20 Test 10/11/16 10:15 10/11/16 11:02 10/11/16 16:07 10/11/16 20:21 Stool Occult Blood POSITIVE (NEGATIVE) Stool Occult Blood Sample #2 POSITIVE (NEGATIVE) Stool Occult Blood Sample #3 POSITIVE (NEGATIVE) Bedside Glucose 214 mg/dl (70-90) 145 mg/dl (70-90) 220 mg/dl (70-90) Test 10/12/16 05:20 10/12/16 07:15 Red Blood Count 3.30 M/uL (4.2-5.4) Mean Corpuscular Volume 94.2 fL (80-100) Mean Corpuscular Hemoglobin 31.2 pg (25-34) Mean Corpuscular Hemoglobin Concent 33.1 g/dl (32-36) RDW Standard Deviation 68.0 fL (36.4-46.3) RDW Coefficient of Variation 20.0 % (11.5-14.5) Mean Platelet Volume 9.5 fL (7.4-10.4) Absolute Reticulocyte Count 0.17 10^6/uL (0.02-0.10) Percent Reticulocyte Count 5.1 % (0.5-2.0) Anion Gap 9.0 mmol/L (3-11) Est Creatinine Clear Calc Drug Dose 16.1 ml/min Estimated GFR () 25.2 Estimated GFR (Non- 21.7 BUN/Creatinine Ratio 36.4 (10-20) Calcium Level 8.1 mg/dl (8.5-10.1) Bedside Glucose 128 mg/dl (70-90) Allergies Coded Allergies: Doxycycline (Verified Allergy, Severe, RASH, 09/22/16) Trimethoprim (Verified Allergy, Severe, RASH, 09/22/16) Adhesives (Verified Allergy, Unknown, HAD RXN TO [employer], ) Atorvastatin (Unverified Allergy, Unknown, UNKNOWN, 10/06/16) Carbamazepine (Verified Allergy, Unknown, 10/06/16) Hydantoins (Verified Allergy, Unknown, 09/22/16) Levofloxacin (Unverified Allergy, Unknown, UNKNOWN, 10/06/16) Penicillins (Verified Allergy, Unknown, AMOXIL, 10/07/16) has tolerated cefepime and ceftriaxone on previous admissions Phenytoin (Verified Allergy, Unknown, 10/06/16) Medications Current Inpatient Medications Medications (Trade) Dose Ordered Sig/Phillip Route Start Time Stop Time Status Last Admin Dose Admin Acetaminophen (Tylenol Tab) 650 mg Q4H PRN PO 10/06/16 20:00 11/05/16 19:59 Cholecalciferol (Vitamin D Tab) 1,000 inter.unit DAILY PO 10/07/16 09:00 11/06/16 08:59 10/11/16 08:54 1,000 INTER.UNIT Cyanocobalamin (Vitamin B-12 Tab) 1,000 mcg DAILY PO 10/07/16 09:00 11/06/16 08:59 10/11/16 08:53 1,000 MCG Diltiazem HCl (TIAzac CAP) 240 mg DAILY PO 10/07/16 09:00 11/06/16 08:59 10/11/16 08:53 240 MG Levothyroxine Sodium (Synthroid Tab) 75 mcg DAILYBB PO 10/07/16 06:00 11/06/16 06:59 10/12/16 05:49 75 MCG Lisinopril (Zestril Tab) 20 mg DAILY PO 10/07/16 09:00 11/06/16 08:59 10/11/16 08:54 20 MG Pravastatin Sodium (Pravachol Tab) 20 mg HS PO 10/06/16 21:00 11/05/16 20:59 10/11/16 21:18 20 MG Ondansetron HCl 4 mg 4 mg Q6H PRN IV 10/06/16 20:15 11/05/16 20:14 Acetaminophen (Ofirmev Iv) 100 ml @ 400 mls/hr Q8H PRN IV 10/06/16 20:15 11/05/16 20:14 10/06/16 22:02 400 MLS/HR Ipratropium [place] (Atrovent 0.02% 0.5MG/2.5ML Neb) 0.5 mg Q2H PRN INH 10/06/16 20:30 11/05/16 20:29 Levalbuterol (Xopenex 1.25MG/ 0.5ML Neb) 1.25 mg Q2H PRN INH 10/06/16 20:30 11/05/16 20:29 Potassium Chloride (Klor-Con Tab) 20 meq BID PO 10/09/16 21:00 11/08/16 20:59 10/11/16 21:18 20 MEQ Insulin Aspart (novoLOG ASPART) SLIDING SCALE If C... ACHS SC 10/09/16 21:00 11/08/16 20:59 10/11/16 21:24 2 UNITS Glucose (Glucose 40% Gel) 15-30 GRAMS 15 GRAMS... UD PRN PO 10/09/16 18:00 11/08/16 17:59 Glucose (Glucose Chew Tab) 4-8 Tablets 4 Tabl... UD PRN PO 10/09/16 18:00 11/08/16 17:59 Dextrose (Dextrose 50% 50ML Syringe) 25-50ML OF 50% DW IV FOR... UD PRN IV 10/09/16 18:00 11/08/16 17:59 Glucagon 1 mg 1 mg UD PRN SQ 10/09/16 18:00 11/08/16 17:59 Methylprednisolone Sodium Succinate/ Syringe (Solu-Medrol IV/ Syringe) 0.32 ml @ 1.5 mls/min Q12 IV 10/10/16 21:00 11/09/16 20:59 10/11/16 21:17 1.5 MLS/MIN Nystatin (Mycostatin Susp) 5 ml QID PO 10/10/16 13:00 10/17/16 12:59 10/11/16 21:18 5 ML Ipratropium [place] (Atrovent Hfa Inhaler) 2 puffs Q6 INH 10/11/16 00:00 11/10/16 00:00 10/11/16 17:57 2 PUFFS Levalbuterol (Xopenex Hfa Inhaler) 2 puffs Q6 INH 10/11/16 00:00 11/10/16 00:00 10/11/16 17:57 2 PUFFS Pantoprazole Sodium (Protonix Tab) 40 mg QAM PO 10/12/16 09:00 11/11/16 08:59 Menthol (Nice Jil) 1 jil PRN PRN PO 10/11/16 18:00 11/10/16 17:59 Impression (1) ANA PAULA (acute kidney injury) (2) Chronic kidney disease, stage 3 (3) Anemia (4) ARDS (adult respiratory distress syndrome) Patient admitted to the hospital w/ recurrent CHF and profound anemia. She has developed acute on chronic kidney injury due to hemodynamic insult. Need to assess for cause of recurrent anemia (GI blood loss vs. myelofibrosis vs. hemolytic anemia vs. pulmonary hemorrhage). Recommendations ACUTE KIDNEY INJURY: -- creatinine has been variable but overall remained stable around 2.0 to 2.2, other electrolyte and volume status stable. -- encourage patient to increase fluid intake -- continue to hold diuretics for now, aim for net even -- Monitor serial PRP -- Avoid known nephrotoxic agents --discussed with pts son Travis and gave update as per pts request. CHRONIC KIDNEY DISEASE: -- Baseline creatinine has been 1.4-1.6 ANEMIA: -- FOBT X 3 is + hemoglobin remained stable, was seen by GI and on PPI , no other w/u planned as Hb stable. -- B12 and folate are normal -- Patient has high LDH w/ low haptoglobin, seen by hematology, out pt f/u planned PULMONARY INFILTRATES: -- Echocardiogram 09/25 reviewed today. Severe . Preserved LVEF -- Pulmonology infiltrates have improved.
--- NOTE | 2016-10-12 10:21 | Hematology/Oncology Prog Note ---
Hematology/Onc Progress Note Date of Service Oct 12, 2016. Diagnoses GI Bleeding Anemia Thrombocytopenia Medications Medications Administered Medications (Trade) Dose Ordered Sig/Phillip Route Start Time Stop Time Status Last Admin Dose Admin Cholecalciferol (Vitamin D Tab) 1,000 inter.unit DAILY PO 10/07/16 09:00 11/06/16 08:59 10/12/16 08:08 1,000 INTER.UNIT Cyanocobalamin (Vitamin B-12 Tab) 1,000 mcg DAILY PO 10/07/16 09:00 11/06/16 08:59 10/12/16 08:08 1,000 MCG Diltiazem HCl (TIAzac CAP) 240 mg DAILY PO 10/07/16 09:00 11/06/16 08:59 10/12/16 08:12 240 MG Levothyroxine Sodium (Synthroid Tab) 75 mcg DAILYBB PO 10/07/16 06:00 11/06/16 06:59 10/12/16 05:49 75 MCG Lisinopril (Zestril Tab) 20 mg DAILY PO 10/07/16 09:00 11/06/16 08:59 10/12/16 08:13 20 MG Pravastatin Sodium 20 mg 20 mg HS PO 10/06/16 21:00 11/05/16 20:59 10/11/16 21:18 20 MG Methylprednisolone Sodium Succinate 60 mg/Syringe 0.96 ml @ 1.5 mls/min Q6H IV 10/06/16 21:00 10/08/16 12:30 DC 10/08/16 09:00 1.5 MLS/MIN Acetaminophen 100 ml @ 400 mls/hr Q8H PRN IV 10/06/16 20:15 11/05/16 20:14 10/06/16 22:02 400 MLS/HR Vancomycin HCl 1400 mg/Sodium Chloride 528 ml @ 200 mls/hr NOW STAT IV 10/06/16 20:26 10/06/16 23:04 DC 10/06/16 21:18 200 MLS/HR Ertapenem 1 gm/ Sodium Chloride 50 ml @ 120 mls/hr Q24H IV 10/06/16 21:00 10/06/16 22:00 DC 10/06/16 21:18 120 MLS/HR Azithromycin 500 mg/Dextrose 255 ml @ 125 mls/hr DAILY@2200 IV 10/06/16 22:00 10/07/16 17:43 DC 10/06/16 21:19 125 MLS/HR Furosemide/ Albumin Human (Lasix Inj/ Albumin 25%) 54 ml @ 54 mls/hr TODAY@2045 ONCE IV 10/06/16 20:45 10/06/16 21:44 DC 10/06/16 21:22 54 MLS/HR Ipratropium [place] (Atrovent 0.02% 0.5MG/2.5ML Neb) 0.5 mg Q6R INH 10/06/16 21:00 10/11/16 00:03 DC 10/10/16 21:37 0.5 MG Levalbuterol 1.25 mg 1.25 mg Q6R INH 10/06/16 21:00 10/11/16 00:03 DC 10/10/16 21:37 1.25 MG Furosemide/Syringe (Lasix Inj/ Syringe) 4 ml @ 4 mls/min BID17 IV 10/07/16 09:00 10/08/16 19:15 DC 10/08/16 18:38 4 MLS/MIN Pantoprazole Sodium (Protonix Tab) 40 mg BID PO 10/07/16 09:00 10/07/16 10:35 DC 10/07/16 09:29 40 MG Epoetin Baljinder 23945 units 20,000 units TODAY@1000 ONCE IV 10/07/16 10:00 10/07/16 10:01 DC 10/07/16 10:55 20,000 UNITS Pantoprazole Sodium 40 mg/ Dextrose 100 ml @ 20 mls/hr Q5H IV 10/07/16 18:30 10/11/16 15:50 DC 10/11/16 12:34 20 MLS/HR Methylprednisolone Sodium Succinate/ Syringe (Solu-Medrol IV/ Syringe) 0.64 ml @ 1.5 mls/min Q6H IV 10/08/16 15:00 10/09/16 13:55 DC 10/09/16 07:57 1.5 MLS/MIN Potassium Chloride (Klor-Con Tab) 20 meq TODAY@1930 ONCE PO 10/08/16 19:30 10/08/16 19:31 DC 10/08/16 20:44 20 MEQ Furosemide (Lasix Tab) 40 mg QAM PO 10/09/16 09:00 10/11/16 12:03 DC 10/11/16 08:54 40 MG Potassium Chloride (Klor-Con Tab) 20 meq BID PO 10/09/16 21:00 11/08/16 20:59 10/12/16 08:07 20 MEQ Potassium Chloride (Klor-Con Tab) 20 meq 0912 ONCE PO 10/09/16 09:12 10/09/16 09:30 DC 10/09/16 10:03 20 MEQ Glycerin 2 ea 2 ea NOW ONCE AK 10/09/16 12:00 10/09/16 12:03 DC 10/10/16 13:17 2 EA Methylprednisolone Sodium Succinate/ Syringe (Solu-Medrol IV/ Syringe) 0.64 ml @ 1.5 mls/min Q8H IV 10/09/16 17:00 10/10/16 11:07 DC 10/10/16 08:22 1.5 MLS/MIN Potassium Chloride (Klor-Con Tab) 20 meq NOW ONCE PO 10/09/16 18:00 10/09/16 18:01 DC 10/09/16 18:10 20 MEQ Insulin Aspart SLIDING SCALE If C... ACHS SC 10/09/16 21:00 11/08/16 20:59 10/11/16 21:24 2 UNITS Methylprednisolone Sodium Succinate/ Syringe (Solu-Medrol IV/ Syringe) 0.32 ml @ 1.5 mls/min Q12 IV 10/10/16 21:00 10/12/16 08:33 DC 10/11/16 21:17 1.5 MLS/MIN Nystatin (Mycostatin Susp) 5 ml QID PO 10/10/16 13:00 10/17/16 12:59 10/12/16 08:15 5 ML Ipratropium [place] (Atrovent Hfa Inhaler) 2 puffs Q6 INH 10/11/16 00:00 11/10/16 00:00 10/11/16 17:57 2 PUFFS Levalbuterol (Xopenex Hfa Inhaler) 2 puffs Q6 INH 10/11/16 00:00 11/10/16 00:00 10/11/16 17:57 2 PUFFS Pantoprazole Sodium (Protonix Tab) 40 mg QAM PO 10/12/16 09:00 11/11/16 08:59 10/12/16 08:07 40 MG Subjective Ms. Rivera continues to have heme positive stools. Since her blood transfusion, her hemoglobin has been stable in the 10-range. However, her platelets have continued to decline during her stay. She denies any fevers, bleeding, diarrhea , cough, or purulent sputum. She does note some mild dysuria, though no hematuria. She denies any epistaxis or bleeding elsewhere. Review of Systems: Constitutional: + fatigue, No chills, No fever Eyes: No worsening of vision ENT: No unusual epistaxis Respiratory: No cough, No sputum Cardiovascular: No chest pain Abdomen: + constipation, No GI bleeding, No pain, No vomiting Musculoskeletal: No joint pain, No muscle pain Female : + dysuria, No hematuria Neurologic: No numbness/tingling, No weakness Heme: No abnormal bleeding/bruising Skin: No rash Vital Signs Vital Signs Past 12 Hours Date Time Temp Pulse Resp B/P Pulse Ox O2 Delivery O2 Flow Rate FiO2 10/12/16 08:09 81 134/56 10/12/16 07:30 95 Room Air 10/12/16 07:06 36.3 87 18 159/72 95 Room Air 10/11/16 23:55 Room Air 10/11/16 22:55 36.4 71 18 111/52 99 Room Air Physical Exam Constitutional: General Apperance: too thin Level of Distress: NAD, chronically ill Psychiatric: Mental Status: active & alert Orientation: oriented except where noted Eyes: EOM: EOMI Lungs: Respiratory Effort: no dyspnea Auscuitation: CTA except as noted Cardiovascular: Heart Auscultation: RRR, murmur Abdomen: Inspection & Palpation: soft, no tenderness, guarding & rebound Extremities: no edema Neurologic: Cranial Nerves: grossly intact Laboratory Last 24 Hours Test 10/11/16 11:02 10/11/16 16:07 10/11/16 20:21 10/12/16 05:20 Bedside Glucose 214 mg/dl 145 mg/dl 220 mg/dl White Blood Count 7.90 K/uL Red Blood Count 3.30 M/uL Hemoglobin 10.3 g/dL Hematocrit 31.1 % Mean Corpuscular Volume 94.2 fL Mean Corpuscular Hemoglobin 31.2 pg Mean Corpuscular Hemoglobin Concent 33.1 g/dl RDW Standard Deviation 68.0 fL RDW Coefficient of Variation 20.0 % Platelet Count 68 K/uL Mean Platelet Volume 9.5 fL Absolute Reticulocyte Count 0.17 10^6/uL Percent Reticulocyte Count 5.1 % Sodium Level 140 mmol/L Potassium Level 4.4 mmol/L Chloride Level 104 mmol/L Carbon Dioxide Level 27 mmol/L Anion Gap 9.0 mmol/L Blood Urea Nitrogen 73 mg/dl Creatinine 2.00 mg/dl Est Creatinine Clear Calc Drug Dose 16.1 ml/min Estimated GFR () 25.2 Estimated GFR (Non- 21.7 BUN/Creatinine Ratio 36.4 Random Glucose 135 mg/dl Calcium Level 8.1 mg/dl Test 10/12/16 07:15 Bedside Glucose 128 mg/dl Assessment & Plan Ms. Rivera is admitted with an ongoing GI bleed. Given her respiratory issues, she is being managed conservatively with a PPI. I would add IV iron, as her transferrin saturation is low and she continues to have heme positive stools. Ferritin is an acute phase reactant and hers is likely high artificially. I would try IV iron sucrose daily while she is admitted. As noted by Dr. Liriano, she will require follow up in our clinic once she is ready for discharge. Her platelets are also declining. She is not clearly on any new medications or heparins. One possibility is the decline is related to her alveolar hemorrhage. Another possibility is some other inflammatory state or infection suppressing her platelets. I do not see clinical evidence of microangiopathy, particularly given her normal hemoglobin. I will review her smear to rule out platelet clumping. Otherwise, would continue supportive care.
--- NOTE | 2016-10-12 12:59 | Family Medicine Progress Note ---
Progress Note Date of Service Oct 12, 2016. Subjective Pt evaluation today including: conversation w/ patient, physical exam, chart review, lab review Pain: Denies PO Intake: Normal appetite Patient has no complaints at this time No pain Feels that shortness of breath is improving reports living at home independently Eager to be discharged but not stating preference for inpatient vs outpatient rehabilitation Denies any recurrent of hemoptysis Constitutional: No chills, No fever Eyes: No eye pain, No redness, No worsening of vision ENT: No hearing loss, No nasal symptoms, No sore throat Respiratory: No cough, No shortness of breath, No wheezing Cardiovascular: No chest pain, No claudication Abdomen: No diarrhea, No nausea, No pain, No vomiting Musculoskeletal: No joint pain, No muscle pain Female : No dysuria, No hematuria, No urinary frequency Neurologic: No numbness/tingling, No vertigo, No weakness Psychiatric: No anhedonism, No anxiety Heme: No night sweats, No swollen lymph nodes Skin: No itch, No new/changing skin lesions, No rash Medications Current Inpatient Medications Medications (Trade) Dose Ordered Sig/Phillip Route Start Time Stop Time Status Last Admin Dose Admin Acetaminophen (Tylenol Tab) 650 mg Q4H PRN PO 10/06/16 20:00 11/05/16 19:59 Cholecalciferol (Vitamin D Tab) 1,000 inter.unit DAILY PO 10/07/16 09:00 11/06/16 08:59 10/12/16 08:08 1,000 INTER.UNIT Cyanocobalamin (Vitamin B-12 Tab) 1,000 mcg DAILY PO 10/07/16 09:00 11/06/16 08:59 10/12/16 08:08 1,000 MCG Diltiazem HCl (TIAzac CAP) 240 mg DAILY PO 10/07/16 09:00 11/06/16 08:59 10/12/16 08:12 240 MG Levothyroxine Sodium (Synthroid Tab) 75 mcg DAILYBB PO 10/07/16 06:00 11/06/16 06:59 10/12/16 05:49 75 MCG Lisinopril (Zestril Tab) 20 mg DAILY PO 10/07/16 09:00 11/06/16 08:59 10/12/16 08:13 20 MG Pravastatin Sodium (Pravachol Tab) 20 mg HS PO 10/06/16 21:00 11/05/16 20:59 10/11/16 21:18 20 MG Ondansetron HCl 4 mg 4 mg Q6H PRN IV 10/06/16 20:15 11/05/16 20:14 Acetaminophen (Ofirmev Iv) 100 ml @ 400 mls/hr Q8H PRN IV 10/06/16 20:15 11/05/16 20:14 10/06/16 22:02 400 MLS/HR Ipratropium [place] (Atrovent 0.02% 0.5MG/2.5ML Neb) 0.5 mg Q2H PRN INH 10/06/16 20:30 11/05/16 20:29 Levalbuterol (Xopenex 1.25MG/ 0.5ML Neb) 1.25 mg Q2H PRN INH 10/06/16 20:30 11/05/16 20:29 Potassium Chloride (Klor-Con Tab) 20 meq BID PO 10/09/16 21:00 11/08/16 20:59 10/12/16 08:07 20 MEQ Insulin Aspart (novoLOG ASPART) SLIDING SCALE If C... ACHS SC 10/09/16 21:00 11/08/16 20:59 10/12/16 12:10 2 UNITS Glucose (Glucose 40% Gel) 15-30 GRAMS 15 GRAMS... UD PRN PO 10/09/16 18:00 11/08/16 17:59 Glucose (Glucose Chew Tab) 4-8 Tablets 4 Tabl... UD PRN PO 10/09/16 18:00 11/08/16 17:59 Dextrose (Dextrose 50% 50ML Syringe) 25-50ML OF 50% DW IV FOR... UD PRN IV 10/09/16 18:00 11/08/16 17:59 Glucagon (Glucagon Inj) 1 mg UD PRN SQ 10/09/16 18:00 11/08/16 17:59 Nystatin (Mycostatin Susp) 5 ml QID PO 10/10/16 13:00 10/17/16 12:59 10/12/16 12:25 5 ML Ipratropium [place] (Atrovent Hfa Inhaler) 2 puffs Q6 INH 10/11/16 00:00 11/10/16 00:00 10/12/16 12:22 2 PUFFS Levalbuterol (Xopenex Hfa Inhaler) 2 puffs Q6 INH 10/11/16 00:00 11/10/16 00:00 10/12/16 12:21 2 PUFFS Pantoprazole Sodium (Protonix Tab) 40 mg QAM PO 10/12/16 09:00 11/11/16 08:59 10/12/16 08:07 40 MG Menthol (Nice Jil) 1 jil PRN PRN PO 10/11/16 18:00 11/10/16 17:59 Prednisone (PredniSONE TAB) 40 mg DAILY PO 10/12/16 09:00 10/15/16 08:59 10/12/16 10:08 40 MG Objective Vital Signs Date Time Temp Pulse Resp B/P Pulse Ox O2 Delivery O2 Flow Rate FiO2 10/12/16 08:09 81 134/56 10/12/16 07:30 95 Room Air 10/12/16 07:06 36.3 87 18 159/72 95 Room Air 10/11/16 23:55 Room Air 10/11/16 22:55 36.4 71 18 111/52 99 Room Air 10/11/16 16:22 90 Room Air 10/11/16 15:26 36.4 69 20 121/72 95 Room Air Physical Exam General Appearance: WD/WN, no apparent distress Eyes: normal inspection, EOMI ENT: normal ENT inspection, hearing grossly normal, pharynx normal Neck: supple, no adenopathy, no JVD Respiratory/Chest: lungs clear, no respiratory distress, + pertinent finding ( on room air and appears comfortable) Cardiovascular: regular rate, rhythm, no gallop, no murmur Abdomen: normal bowel sounds, non tender, soft Extremities: non-tender, no pedal edema Neurologic/Psychiatric: alert, normal mood/affect, oriented x 3 Skin: normal color, warm/dry, no rash Lymphatic: no adenopathy Laboratory Results Last 24 Hours Test 10/11/16 16:07 10/11/16 20:21 10/12/16 05:20 10/12/16 07:15 Bedside Glucose 145 mg/dl 220 mg/dl 128 mg/dl White Blood Count 7.90 K/uL Red Blood Count 3.30 M/uL Hemoglobin 10.3 g/dL Hematocrit 31.1 % Mean Corpuscular Volume 94.2 fL Mean Corpuscular Hemoglobin 31.2 pg Mean Corpuscular Hemoglobin Concent 33.1 g/dl RDW Standard Deviation 68.0 fL RDW Coefficient of Variation 20.0 % Platelet Count 68 K/uL Mean Platelet Volume 9.5 fL Absolute Reticulocyte Count 0.17 10^6/uL Percent Reticulocyte Count 5.1 % Sodium Level 140 mmol/L Potassium Level 4.4 mmol/L Chloride Level 104 mmol/L Carbon Dioxide Level 27 mmol/L Anion Gap 9.0 mmol/L Blood Urea Nitrogen 73 mg/dl Creatinine 2.00 mg/dl Est Creatinine Clear Calc Drug Dose 16.1 ml/min Estimated GFR () 25.2 Estimated GFR (Non- 21.7 BUN/Creatinine Ratio 36.4 Random Glucose 135 mg/dl Calcium Level 8.1 mg/dl Test 10/12/16 11:18 Bedside Glucose 202 mg/dl Assessment and Plan 86 year old female present on day 6 of admission for hemoptysis and shortness of breath. Having reviewed history and hospital, currently patient is in a position where there is an uncertain diagnosis to her hemoptysis (inflammatory vs cardiogenic) but decline any further invasive evaluation (ie bronchoscopy or renal biopsy). She is being treated empirically with steroids for presumed vasculitic/ inflammatory etiology. Clinically, she does appear to be doing well and is requiring minimal oxygen support. Given that we are foregoing any invasive work-up, I think we can look at discharge planning options at this time. The patient has previously been reluctant to go to rehab or skills nursing. Given 2 recent [id number] hospitalizations, her risk of rehospitalization is further increased so I have strongly recommended to her at least considering SNF placement for a short stay. She was initially reluctant but was ultimately agreeable to this option. She expressed that she would like backup option to be discharge home with home PT. Her problem list includes - Acute Respiratory Failure with Hemoptysis, vasculitic vs cardiogenic - Acute Kidney Injury - Anemia - Thrombocytopenia - Valvular Heart Disease - Paroxysmal Atrial Fibrillation - Type 2 Diabetes Mellitus - Hypothyroidism Acute hypoxic respiratory failure - Improved, patient currently on room air during daytime - Hemoptysis improved; CXR appears to be improving - Etiology remains unclear, is being empirically treated for vasculitic etiology Per pulmonary, recommend slow taper down to 20 mg Prednisone which she should remain on until pulm outpatient follow-up - Patient refusing further work-up by invasive means (bronchoscopy, renal biopsy ) - Patient is globally - 6 L, would hold on diuretic at this stage to treat for cardiogenic etiology Anemia/Thrombocytopenia - Hemoptysis with positive hemoccult Hemoccult may be GI source vs. ingested bloody sputum - Declines Colonoscopy - Hb remains stable at 10 - Heme/Onc following, needs outpatient follow-up; recommendations appreciated Valvular Heart Disease - LVEF 55-60% with mildly dilated left atrium, moderate mitral regurgitation, mild mitral stenosis, severe calcific aortic valve stenosis - Appreciate cardiology recommendations - Continue ACEi Acute kidney injury - Creatinine stable at 2; stable - Continue daily monitoring - Nephrology recommendations; recommend outpatient follow-up and will require repeat labs to confirm stable/improving creatinine - Past history of nephrotic syndrome 2008; vasculitic screen at last admission was negative Hyperglycemia, secondary to steroids - Coninue AC/HS accuchecks - Goal 140-180; BSG 120-200s - Continue current sliding scale - Solumedrol scaled back; patient starting Prednisone 40 mg daily, slow taper per Pulmonary and continuing at 20 mg Paroxysmal Atrial Fibrillation - Continue Diltiazem 240 mg PO daily - High risk for - Anticoagulation contra-indicated at this time due to risk of bleeding Hypothyroidism - Continue levothyroxine DVT prophylaxis - Hx PE 2007 - not on anticoagulation secondary to GI bleed, LE Doppler clear on this admission - SCDs, TEDs - Pharmacological means contra-indicated due to bleeding risk Code - DNR - DNI (unless would benefit for a temporary reversible condition, POLST form done to this effect) - Not for exterminator feeding but would accept trial of artificial hydration. Disposition - Patient agreeable to SNF stay for short duration - OT/PT orders placed Continued [facility] stay due to: ambulation difficulties Discharge planning: uncertain Reviewed: Pt Seen/Exam by Me Constitutional: denies: fever Respiratory: negative: short of breath Cardiovascular: denies chest pain General Appearance: no apparent distress Respiratory: lungs clear, no respiratory distress Cardiovascular: regular rate, rhythm Neurologic/Psychiatric: alert, oriented x 3 Skin Characteristics: warm/dry Assessment/Plan I have reviewed the medical record and performed a history and physical examination of this patient today. I have discussed the case with Dr. Montez. The above note reflects my findings, conclusions, and recommendations.
[2016-10-12 15:11] VITALS: BP 133/67; PULSE 67; TEMP 36.1; O2SAT 98
[2016-10-12 15:21] VITALS: BP 133/67; PULSE 67; O2SAT 98
[2016-10-12] MEDS: PRAVASTATIN SOD 20 MG TAB PO SCH (20:36)
[2016-10-13 00:40] VITALS: BP 148/74; PULSE 70; TEMP 36.4; O2SAT 93
[2016-10-13] MEDS: LEVOTHYROXINE 75 MCG TAB PO SCH (05:51)
[2016-10-13] MEDS: LEValbuterol HFA 15GM INHALER INH SCH ×3 (05:51→11:43)
[2016-10-13] MEDS: IPRATROPIUM BROMIDE HFA INHALER INH SCH ×3 (05:52→11:43)
[2016-10-13 06:23] LABS: HEMATOCRIT 33.3 % (37-47); MEAN CELL VOLUME 93.3 fL (80-100); MEAN CORPUSCULAR HEMOGLOBIN 30.8 pg (25-34); RED BLOOD COUNT 3.57 M/uL (4.2-5.4); WHITE BLOOD COUNT 8.74 K/uL (4.8-10.8)
[2016-10-13 06:25] LABS: COMPLETE YES; IG% 0.6 %; LYMPH % 5.5 %; LYMPH ABS # 0.48 K/uL (1.2-3.4); NEUT % 88.9 %; PLATELET COUNT 64 K/uL (130-400)
[2016-10-13 07:02] LABS: BUN/CREATININE RATIO 35.3 (10-20); CALCIUM 8.2 mg/dl (8.5-10.1); CREATININE 1.8 mg/dl (0.60-1.20); POTASSIUM 5.4 mmol/L (3.5-5.1)
[2016-10-13 07:18] VITALS: BP 167/78; PULSE 70; TEMP 36.6; O2SAT 92
[2016-10-13] MEDS ORDERED: IRON SUCROSE INJ 100 MG in SODIUM CHLORIDE 0.9% 100ML 100 ML IV SCH (08:00)
[2016-10-13] MEDS: INSULIN ASPART 100 UNITS/ML 3 ML PEN SC SCH ×2 (08:30→11:42)
[2016-10-13] MEDS: LISINOPRIL 20 MG TAB PO SCH (09:37)
[2016-10-13] MEDS: PANTOprazole SOD 40 MG TAB PO SCH (09:38)
[2016-10-13] MEDS: CYANOCOBALAMIN 500 MCG TAB (VIT B-12) PO SCH (09:38)
[2016-10-13] MEDS: CHOLECALCIFEROL 1000 INTER.UNIT TAB PO SCH (09:38)
[2016-10-13] MEDS: NYSTATIN SUSP 500,000 U/5 ML UDC PO SCH ×2 (09:39→13:12)
[2016-10-13] MEDS: DILTIAZEM HCL 120 MG EXT REL CAP PO SCH (09:39)
--- NOTE | 2016-10-13 10:43 | Discharge Instructions ---
Discharge Instructions Date of Service Oct 13, 2016. Admission Reason for Admission: Acute Respiratory Failure W/ Hypoxia & Hypercapnia Discharge Discharge Diagnosis / Problem: Hemoptysis, Shortness of Breath, GI bleeding Discharge Goals Goal(s): Decrease discomfort, Improve function, Increase independence Activity Recommendations Activity Limitations: resume your previous activity Lifting Limitations: none Exercise/Sports Limitations: none Shower/Bathe: no limitations Driving or Machine Use: no limitations . Instructions / Follow-Up Instructions / Follow-Up You came to the hospital for shortness of breath and coughing up blood. You decline to have any invasive investigations which includes bronchoscopy, which would allow us to look at the airways and determine if there is a source of bleeding. Reviewing your history, you had an episode of presumed inflammatory worsening of your kidney function a few years back. In light of this, we had considered a group of diagnoses called vasculitides, which can cause inflammation and bleeding of the lung tissue. However, biopsy of either the kidney or lung tissue is ultimately what is required to make a diagnosis and since you do not want these, we have not pursued these options. Since you do have aortic stenosis we also treated you for congestive heart failure as cause for your coughing up blood. We were able to remove excess fluid. You also had gastrointestinal bleeding, though it may be possible that some of it also comes from swallowing sputum from when you coughed up blood. In this case you also decline to have any invasive testing such as colonoscopy. You also had an acute kidney injury likely secondary to blood loss and dehydration. It has been improving but we need to continue having you follow-up with your health careers instructor. In addition, make sure that you stay well hydrated. You also had gastrointestinal bleeding that required transfusion. We were able to keep your hemoglobin stable and feel that you are stable to be discharged. Because of concern for possible underlying lung inflammation we are treating you with steroids. Our outside medical sales representative has been following along with you and recommends we slowly decrease your dose down to 25 mg and stay on that dose until you see them at your follow-up appointment. We will print a calendar to show you how and when to drop your doses. We are going to get you the following appointments: - Nephrology (Dr. Gaitan) - Pulmonology (Dr. La) - Hematology We will be discharging you to group home care to help you get your strength back so you can return home. As you go home, please do the following - Start iron supplementation, we will give you a prescription for this - Continue steroids. We will give you schedule of when to drop your dose. You should stay one 25 mg once you reach that dose. - Please repeat your bloodwork (CBC, CMP) in 2-3 days to ensure that you continue to improve. These results should go to your PCP. - Please hold your Lisinopril until your PCP reviews your repeat bloodwork If your symptoms fail to improve, acutely worsen, please seek medical attention immediately by either calling your primary care provider or going to your nearest emergency department. Otherwise, please see your primary care provider in 3-5 days to ensure that your symptoms continue to improve. Current Hospital Diet Patient's current hospital diet: AHA Diet (Heart Healthy), Diabetes Type 2 Diet Discharge Diet Recommended Diet: AHA Diet (Heart Healthy) Pending Studies Studies pending at discharge: no Laboratory Results Hemoglobin A1c Test 10/10/16 07:02 Range/Units Estimated Average Glucose 91 mg/dl Hemoglobin A1c 4.8 4.5-5.6 % Medical Emergencies . Who to Call and When: Medical Emergencies: If at any time you feel your situation is an emergency, please call 911 immediately. . Non-Emergent Contact Non-Emergency issues call your: Primary Care Provider Call Non-Emergent contact if: you have a fever, temperature is above 100.5, your pain is not controlled, your pain is worsening . . "Provider Documentation" section prepared by Tremaine Montez. VTE Core Measure Inpt VTE Proph given/why not?: SCD's, Treatment not indicated (risk of bleeding )
[2016-10-13] MEDS ORDERED: PRD/1 PO (11:05)
--- NOTE | 2016-10-13 11:57 | Nephrology Progress Note ---
Nephrology Progress Note Date of Service Oct 13, 2016. Chief Complaint Follow-up for acute kidney injury with history of chronic kidney disease. Ion Tavares was seen and examined in her room this morning. She is overall feeling well, denies any shortness of breath or chest pain. She report no exertional dyspnea with going to bathroom and moving around this morning. No fever or chills overnight. Renal function stable, creatinine slightly improved to 1.8, however has been variable from 1.9-2.2, electrolyte acceptable, blood pressure and volume status stable. Hb stable. Review of Systems A complete review of systems was performed. Pertinent positives are noted above. All other systems are negative. Vital Signs Last 8 Hrs Date Time Temp Pulse Resp B/P Pulse Ox O2 Delivery O2 Flow Rate FiO2 10/13/16 07:43 Room Air 10/13/16 07:18 36.6 70 18 167/78 92 Room Air I & O 24-Hour Column 10/13/16 08:00 Intake Total 695 ml Output Total 600 ml Balance 95 ml Last Recorded Weight Weight (Kilograms): 52.500 Physical Exam GENERAL: Elderly female, AAA x 3, not in any distress. NECK: Supple, no JVD. RESPIRATORY: Normal breathing efforts, no accessory muscle use, clear to auscultation bilaterally, no wheezes or rales. CARDIOVASCULAR: S1, S2 normal, rate rhythm regular. EXTREMITY: No lower extremity edema NEURO: speech fluent. PSYCHIATRY: Normal mood and judgment Family History Heart disease Negative for CKD / ESRD Social History Drug Use: none Marital Status: Housing Status: lives with family 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 . Lives alone. Son (Travis) is nearby and very supportive. Retired from [employer]. Never a smoker Laboratory Results Past 24 Hours 10/13/16 05:39 Red Blood Count 3.57, Mean Corpuscular Volume 93.3, Mean Corpuscular Hemoglobin 30.8, Mean Corpuscular Hemoglobin Concent 33.0, Mean Platelet Volume 10.0, Neutrophils (%) (Auto) 88.9, Lymphocytes (%) (Auto) 5.5, Monocytes (%) (Auto) 5.0, Eosinophils (%) (Auto) 0.0, Basophils (%) (Auto) 0.0, Neutrophils # (Auto) 7.77, Lymphocytes # (Auto) 0.48, Monocytes # (Auto) 0.44, Eosinophils # (Auto) 0.00, Basophils # (Auto) 0.00 10/13/16 05:39 Test 10/12/16 16:34 10/12/16 19:59 10/13/16 05:39 10/13/16 07:15 Bedside Glucose 138 mg/dl (70-90) 249 mg/dl (70-90) 92 mg/dl (70-90) White Blood Count 8.74 K/uL (4.8-10.8) Red Blood Count 3.57 M/uL (4.2-5.4) Hemoglobin 11.0 g/dL (12.0-16.0) Hematocrit 33.3 % (37-47) Mean Corpuscular Volume 93.3 fL (80-100) Mean Corpuscular Hemoglobin 30.8 pg (25-34) Mean Corpuscular Hemoglobin Concent 33.0 g/dl (32-36) Platelet Count 64 K/uL (130-400) Mean Platelet Volume 10.0 fL (7.4-10.4) Neutrophils (%) (Auto) 88.9 % Lymphocytes (%) (Auto) 5.5 % Monocytes (%) (Auto) 5.0 % Eosinophils (%) (Auto) 0.0 % Basophils (%) (Auto) 0.0 % Neutrophils # (Auto) 7.77 K/uL (1.4-6.5) Lymphocytes # (Auto) 0.48 K/uL (1.2-3.4) Monocytes # (Auto) 0.44 K/uL (0.11-0.59) Eosinophils # (Auto) 0.00 K/uL (0-0.5) Basophils # (Auto) 0.00 K/uL (0-0.2) RDW Standard Deviation 65.7 fL (36.4-46.3) RDW Coefficient of Variation 19.6 % (11.5-14.5) Immature Granulocyte % (Auto) 0.6 % Immature Granulocyte # (Auto) 0.05 K/uL (0.00-0.02) Anion Gap 8.0 mmol/L (3-11) Est Creatinine Clear Calc Drug Dose 17.9 ml/min Estimated GFR () 28.6 Estimated GFR (Non- 24.7 BUN/Creatinine Ratio 35.3 (10-20) Calcium Level 8.2 mg/dl (8.5-10.1) Test 10/13/16 11:28 Bedside Glucose 121 mg/dl (70-90) Allergies Coded Allergies: Doxycycline (Verified Allergy, Severe, RASH, 09/22/16) Trimethoprim (Verified Allergy, Severe, RASH, 09/22/16) Adhesives (Verified Allergy, Unknown, HAD RXN TO [employer] PATCHES, ) Atorvastatin (Unverified Allergy, Unknown, UNKNOWN, 10/06/16) Carbamazepine (Verified Allergy, Unknown, 10/06/16) Hydantoins (Verified Allergy, Unknown, 09/22/16) Levofloxacin (Unverified Allergy, Unknown, UNKNOWN, 10/06/16) Penicillins (Verified Allergy, Unknown, AMOXIL, 10/07/16) has tolerated cefepime and ceftriaxone on previous admissions Phenytoin (Verified Allergy, Unknown, 10/06/16) Medications Current Inpatient Medications Medications (Trade) Dose Ordered Sig/Phillip Route Start Time Stop Time Status Last Admin Dose Admin Acetaminophen (Tylenol Tab) 650 mg Q4H PRN PO 10/06/16 20:00 11/05/16 19:59 Cholecalciferol (Vitamin D Tab) 1,000 inter.unit DAILY PO 10/07/16 09:00 11/06/16 08:59 10/13/16 09:38 1,000 INTER.UNIT Cyanocobalamin (Vitamin B-12 Tab) 1,000 mcg DAILY PO 10/07/16 09:00 11/06/16 08:59 10/13/16 09:38 1,000 MCG Diltiazem HCl (TIAzac CAP) 240 mg DAILY PO 10/07/16 09:00 11/06/16 08:59 10/13/16 09:39 240 MG Levothyroxine Sodium (Synthroid Tab) 75 mcg DAILYBB PO 10/07/16 06:00 11/06/16 06:59 10/13/16 05:51 75 MCG Lisinopril (Zestril Tab) 20 mg DAILY PO 10/07/16 09:00 11/06/16 08:59 10/13/16 09:37 20 MG Pravastatin Sodium (Pravachol Tab) 20 mg HS PO 10/06/16 21:00 11/05/16 20:59 10/12/16 20:36 20 MG Ondansetron HCl 4 mg 4 mg Q6H PRN IV 10/06/16 20:15 11/05/16 20:14 Acetaminophen (Ofirmev Iv) 100 ml @ 400 mls/hr Q8H PRN IV 10/06/16 20:15 11/05/16 20:14 10/06/16 22:02 400 MLS/HR Ipratropium [place] (Atrovent 0.02% 0.5MG/2.5ML Neb) 0.5 mg Q2H PRN INH 10/06/16 20:30 11/05/16 20:29 Levalbuterol (Xopenex 1.25MG/ 0.5ML Neb) 1.25 mg Q2H PRN INH 10/06/16 20:30 11/05/16 20:29 Insulin Aspart (novoLOG ASPART) SLIDING SCALE If C... ACHS SC 10/09/16 21:00 11/08/16 20:59 10/12/16 20:43 3 UNITS Glucose (Glucose 40% Gel) 15-30 GRAMS 15 GRAMS... UD PRN PO 10/09/16 18:00 11/08/16 17:59 Glucose (Glucose Chew Tab) 4-8 Tablets 4 Tabl... UD PRN PO 10/09/16 18:00 11/08/16 17:59 Dextrose (Dextrose 50% 50ML Syringe) 25-50ML OF 50% DW IV FOR... UD PRN IV 10/09/16 18:00 11/08/16 17:59 Glucagon (Glucagon Inj) 1 mg UD PRN SQ 10/09/16 18:00 11/08/16 17:59 Nystatin (Mycostatin Susp) 5 ml QID PO 10/10/16 13:00 10/17/16 12:59 10/13/16 09:39 5 ML Ipratropium [place] (Atrovent Hfa Inhaler) 2 puffs Q6 INH 10/11/16 00:00 11/10/16 00:00 10/13/16 11:43 2 PUFFS Levalbuterol (Xopenex Hfa Inhaler) 2 puffs Q6 INH 10/11/16 00:00 11/10/16 00:00 10/13/16 11:43 2 PUFFS Pantoprazole Sodium (Protonix Tab) 40 mg QAM PO 10/12/16 09:00 11/11/16 08:59 10/13/16 09:38 40 MG Menthol (Nice Jil) 1 jil PRN PRN PO 10/11/16 18:00 11/10/16 17:59 Prednisone (PredniSONE TAB) 40 mg DAILY PO 10/12/16 09:00 10/15/16 08:59 10/13/16 09:38 40 MG Impression (1) ANA PAULA (acute kidney injury) (2) Chronic kidney disease, stage 3 (3) Anemia (4) ARDS (adult respiratory distress syndrome) Patient admitted to the hospital w/ recurrent CHF and profound anemia. She has developed acute on chronic kidney injury due to hemodynamic insult. Need to assess for cause of recurrent anemia (GI blood loss vs. myelofibrosis vs. hemolytic anemia vs. pulmonary hemorrhage). Recommendations ACUTE KIDNEY INJURY: -- creatinine has been variable but overall remained stable around 2.0 to 2.2, other electrolyte and volume status stable. -- encourage patient to increase fluid intake -- continue to hold diuretics for now, aim for net even -- Avoid known nephrotoxic agents --discussed with pts maki Robles and gave update as per pts request. CHRONIC KIDNEY DISEASE: -- Baseline creatinine has been 1.4-1.6 ANEMIA: -- FOBT X 3 is + hemoglobin remained stable, was seen by GI and on PPI , no other w/u planned as Hb stable. -- B12 and folate are normal -- Patient has high LDH w/ low haptoglobin, seen by hematology, out pt f/u planned PULMONARY INFILTRATES: -- Echocardiogram 09/25 reviewed today. Severe . Preserved LVEF -- Pulmonology infiltrates have improved. Okay to be discharge, please schedule for outpatient follow-up with Dr. Gaitan in next 2-3 weeks.
[2016-10-13 14:05] VITALS: BP 167/78; PULSE 70; TEMP 36.6; O2SAT 92
--- NOTE | 2016-10-13 14:06 | Discharge Summary ---
Discharge Summary Date of Service Oct 13, 2016. (Tremaine Montez MD) Discharge Summary Admission Date: Oct 06, 2016 at 19:59 Discharge Date: Oct 13, 2016 Discharge Disposition: Home (with PT) Principal Diagnosis: Hemoptysis, ANA PAULA Immunizations: Have You Had Influenza Vaccine: Yes History of Tetanus Vaccine?: Unknown History of Pneumococcal: Yes History of Hepatitis B Vaccine: Unknown Procedures: CT SCAN OF THE CHEST WITHOUT IV CONTRAST CLINICAL HISTORY: Dyspnea. Hemoptysis. COMPARISON STUDY: Chest CT dated 09/22/2016 and 06/13/2014. Chest x-ray dated 09/22/2016. TECHNIQUE: CT scan of the thorax was performed from the thoracic inlet to the upper abdomen. Images are reviewed in the axial, sagittal, and coronal planes. IV contrast was not administered for this examination. The examination is degraded by streak artifact from the patient's right arm which could not be elevated above the chest. The examination is also degraded by motion artifact. CT DOSE: 211.46 mGy.cm FINDINGS: Thyroid: Atrophic. Thoracic aorta: There is advanced atherosclerotic calcification of the thoracic aorta, which is normal in caliber and demonstrates standard 3-vessel arch anatomy. Heart: The heart is enlarged and without pericardial effusion. The coronary arteries are densely calcified. There is diminished attenuation of the cardiac blood pool as compared to the myocardium suggesting anemia. The main pulmonary arteries are dilated suggesting pulmonary artery hypertension. Lungs and pleural spaces: Evaluation of the lung parenchyma is degraded by expiratory motion artifact. Pleural effusions have almost completely resolved from previous. Diffuse intralobular septal thickening has improved. Diffuse/multifocal bilateral airspace opacification has modestly worsened from 09/22/2016. The trachea and central airways appear clear. Mediastinum: There are numerous prominent mediastinal lymph nodes which measure up to 9 mm in short axis. Calcified mediastinal nodes are observed. Susy: Not well assessed without IV contrast. There are calcified right hilar nodes. Axillae: There is no axillary lymphadenopathy. Upper abdomen: A small hiatal hernia is identified. Numerous calcified gallstones are identified. There are numerous calcified splenic granulomas. Calcified hepatic granulomas are also seen. The partially imaged left kidney demonstrates marked cortical atrophy. Skeletal structures: The skeletal structures are osteopenic. There is an age indeterminant superior endplate compression deformity of T11. Large hemangiomas are seen in the bodies of T1, T2, and L1. No lytic or blastic bony lesions are seen. Advanced arthritic change is noted in the shoulders. IMPRESSION: 1. Streak and motion degraded examination. 2. The heart is enlarged. Intralobular septal thickening has somewhat improved from previous, possibly representing improvement in congestive failure. 3. Diffuse bilateral airspace opacities have modestly worsened from previous. The appearance is nonspecific, and differential considerations remain pulmonary edema, pneumonia, pulmonary hemorrhage, and/or ARDS. Clinical correlation will be required. 4. Small pleural effusions have almost completely resolved from 09/22/2016. 5. Cholelithiasis. 6. Numerous prominent mediastinal lymph nodes are indeterminant and may be reactive. 7. Additional findings as above. CHEST 2 VIEWS ROUTINE CLINICAL HISTORY: hemorrhage hypoxia COMPARISON STUDY: 10/11/2016 FINDINGS: Mild improvement of the bilateral parenchymal infiltrative and interstitial change. Minimal atelectasis left base. No significant cardiac enlargement. IMPRESSION: Mild improvement of the patient's bilateral interstitial infiltrative change. (Tremaine Montez MD) Medication Reconciliation New Medications: Prednisone (Prednisone) 1 Mg Tab 0 PO UD for 30 Days, #30 TAB see calendar for dose instructions Paper prescription to be provided Continued Medications: Cholecalciferol (Vitamin D3) 1,000 Unit Tab 1 TAB PO DAILY for 30 Days, #30 TAB 5 Refills Cyanocobalamin (Vitamin B-12) 1,000 Mcg Tab 1000 MCG PO DAILY, TAB Diltiazem Hcl Ext Rel (Tiazac) 240 Mg Capcr 240 MG PO DAILY, CAP Levothyroxine Sodium (Synthroid) 75 Mcg Tab 75 MCG PO DAILY, TAB Oxygen (Oxygen) Gas 2 LITERS NA PRN for pt needs it with amblation for 365 Days, #1 Pantoprazole (Protonix) 20 Mg Tab 20 MG PO BID, #30 TAB Pravastatin (Pravachol ) 20 Mg Tab 20 MG PO HS, TAB Discontinued Medications: Lisinopril (Zestril) 20 Mg Tab 20 MG PO DAILY, TAB Prednisone (Prednisone) 20 Mg Tab 40 MG PO DAILY, #90 TAB Discharge Exam Review of Systems: Constitutional: No chills, No fever Eyes: No eye pain, No redness ENT: No sore throat, No tinnitus, No unusual epistaxis Respiratory: No cough, No sputum, No wheezing Cardiovascular: No chest pain, No claudication, No palpitations Abdomen: No diarrhea, No nausea, No pain Musculoskeletal: No joint pain, No muscle pain Genitourinary - Female: No urinary frequency, No urinary urgency Genitourinary - Male: No dysuria, No hematuria Neurologic: No numbness/tingling, No vertigo Psychiatric: No depression symptoms Endocrine: No fatigue Hematologic / Lymphatic: No night sweats, No swollen lymph nodes Integumentary: No itch, No rash Physical Exam: General Appearance: WD/WN, no apparent distress, + thin Eyes: normal inspection, EOMI ENT: hearing grossly normal, pharynx normal Neck: supple, no adenopathy, no JVD Respiratory/Chest: lungs clear, no respiratory distress Cardiovascular: regular rate, rhythm, no gallop, + systolic murmur (3/6 ejection systolic murmur) Abdomen / GI: normal bowel sounds, non tender, soft Extremities: no calf tenderness, no pedal edema Neurologic/Psychiatric: alert, normal mood/affect, oriented x 3 Skin: normal color, warm/dry, no rash Lymphatic: no adenopathy (Tremaine Montez MD) Review of Systems: Constitutional: No fever Respiratory: No cough, No shortness of breath Cardiovascular: No chest pain Physical Exam: General Appearance: no apparent distress Respiratory/Chest: lungs clear, no respiratory distress Cardiovascular: regular rate, rhythm Abdomen / GI: normal bowel sounds, non tender, soft Neurologic/Psychiatric: alert, oriented x 3 (Shantel Whitten M.D.) Hospital Course 86 year old female present on day 6 of admission for hemoptysis and shortness of breath. Second admission in 1 month for similar causes. Cause of hemoptysis was suspected to either inflammatory/vasculitis vs cardiogenic. 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 Patient was treated empirically with diuresis and steroids to cover both potential etiologies above. Her problem list included: - Acute Respiratory Failure with Hemoptysis, vasculitic vs cardiogenic - Acute Kidney Injury - Anemia - Thrombocytopenia - Valvular Heart Disease - Paroxysmal Atrial Fibrillation - Hyperglycemia - Hypothyroidism Acute hypoxic respiratory failure - Improved, patient currently on room air during daytime - Hemoptysis improved over admission; confirmed by repeat CXR - Etiology remains unclear, is being empirically treated for vasculitic etiology - Pulm consulted Pt declines bronchosocopy; would be poor candidate for anesthesia Recommend empiric systemic steroids: Prednisone 40 mg, with slow wean down to 25 mg where she will remain until pulm follow-up - Patient is globally - 6 L Anemia/Thrombocytopenia - Hemoptysis with positive hemoccult Hemoccult may be GI source vs. ingested bloody sputum - Declines Colonoscopy - Transfused x 2 units during hospitalization - Discharge hemoglobin stable stable at 10 - Heme/Onc following recommend outpatient follow-up - Repeat CBC in 3-5 days Valvular Heart Disease - LVEF 55-60% with mildly dilated left atrium, moderate mitral regurgitation, mild mitral stenosis, severe calcific aortic valve stenosis - Appreciate cardiology recommendations - Lisinopril continued during admission but held at discharge due to lower than baseline BP (asymptomatic); per PCP to re-start Acute kidney injury - 2.1 on admission; remained stable; decreased to 0.8 at discharge - Repeat BMP in 3-5 to ensure stable/decreasing - Nephrology following during admission; will see patient as outpatient follow- up - Past history of nephrotic syndrome 2008; vasculitic screen at last admission was negative Patient decline having renal biopsy as part of a vasculitic work-up Hyperglycemia, secondary to steroids - Well controlled during admission with sliding scale - Patient will be on slow prednisone taper - will have repeat BMP in 3 days; BSG at that time can be followed - HbA1c 4.8 Paroxysmal Atrial Fibrillation - Continue Diltiazem 240 mg PO daily - Held during admission and at discharge due to risk of bleeding - Patient is high risk due to hx of DVT in 2007; but acute bleeding on admission made it contra-indicated - Remained rate controlled throughout admission Hypothyroidism - Continued levothyroxine DVT prophylaxis - Hx PE 2007 - not on anticoagulation secondary to GI bleed, LE Doppler clear on this admission - SCDs, TEDs - Pharmacological means contra-indicated due to bleeding risk Code - DNR - DNI (unless would benefit for a temporary reversible condition, POLST form done to this effect) - Not for chcf feeding but would accept trial of artificial hydration. Disposition - Recommended short term SNF but patient showed good progress to be discharged home with home PT - Will have the following appointments arranged - Hematology - Nephrology (Dr. Gaitan) - Pulmonology (Dr. La) - Patient needs to see PCP in 3-5 days to ensure she continues to improve and requires repeat CBC and BMP in 2-3 days Total Time Spent: Less than 30 minutes This includes examination of the patient, discharge planning, medication reconciliation, and communication with other providers. (Tremaine Montez MD) I have reviewed the medical record and performed a history and physical examination of this patient today. I have discussed the case with Dr. Montez. The above note reflects my findings, conclusions, and recommendations. Total Time Spent: Greater than 30 minutes (35) (Shantel Whitten M.D.) Discharge Instructions Please refer to the electronic Patient Visit Report (Discharge Instructions) for additional information. (Tremaine Montez MD) Additional Copies To Malik Gaitan M.D.; Eugenio Cardenas M.D.; Pool La MD
[2016-10-13 14:54] VITALS: BP 133/75; PULSE 70; TEMP 36.6; O2SAT 95
== END 2016-10-13 15:00 | disposition home health service (06) | DRG 291 ==
LOC: ENRESERVDT → ENRESERVTM → EDBD 15:39 → C.ED 15:40 → C.EDINP 19:59 → C.2T 10-07 00:44 → C.MS2W 10-09 18:24
PROVIDERS: ADMIT Hospitalist; ATTEND Family Medicine
DX: I13.0 Hypertensive heart and chronic kidney disease with heart failure and stage 1 through stage 4 chronic kidney disease, or unspecified chronic kidney disease (principal); J96.01 Acute respiratory failure with hypoxia; J18.9 Pneumonia, unspecified organism; J96.02 Acute respiratory failure with hypercapnia; I50.33 Acute on chronic diastolic (congestive) heart failure; N17.9 Acute kidney failure, unspecified; R04.2 Hemoptysis; B37.0 Candidal stomatitis; I25.10 Atherosclerotic heart disease of native coronary artery without angina pectoris; M81.0 Age-related osteoporosis without current pathological fracture; Z86.73 Personal history of transient ischemic attack (TIA), and cerebral infarction without residual deficits; M94.0 Chondrocostal junction syndrome [Tietze]; Z82.49 Family history of ischemic heart disease and other diseases of the circulatory system; Z88.8 Allergy status to other drugs, medicaments and biological substances; Z88.0 Allergy status to penicillin; Z91.048 Other nonmedicinal substance allergy status; Z88.1 Allergy status to other antibiotic agents; Z99.81 Dependence on supplemental oxygen; Z79.52 Long term (current) use of systemic steroids; Z79.899 Other long term (current) drug therapy; I48.2 Chronic atrial fibrillation; E78.00 Pure hypercholesterolemia, unspecified; K21.9 Gastro-esophageal reflux disease without esophagitis; E03.9 Hypothyroidism, unspecified; E53.8 Deficiency of other specified B group vitamins; Z86.711 Personal history of pulmonary embolism; Z87.440 Personal history of urinary (tract) infections; Z66 Do not resuscitate; G40.909 Epilepsy, unspecified, not intractable, without status epilepticus; N18.3 Chronic kidney disease, stage 3 (moderate); R19.5 Other fecal abnormalities; I08.3 Combined rheumatic disorders of mitral, aortic and tricuspid valves; D69.6 Thrombocytopenia, unspecified; F41.9 Anxiety disorder, unspecified; I48.0 Paroxysmal atrial fibrillation; R73.9 Hyperglycemia, unspecified; T38.0X5A Adverse effect of glucocorticoids and synthetic analogues, initial encounter; D63.8 Anemia in other chronic diseases classified elsewhere

== ENCOUNTER → 2016-10-06 | Outpatient (CLI) | payer BC, OTHER ==
[~2016-10-06] MED LIST changes: +BCTCR/30 EXT; +CHOL1000 PO; +CYAN10005 PO; -CYAN100T6 PO; +DOCU-94 PO; +FURO-85 PO; +LEVO75TA PO; +MCRK20 PO; +NYSS/ PO; +OXGN; -PANT40TA PO; +PRD/1 PO; +PRD20 PO; +PRED10TA PO; +PRT/20 PO; +PSYL1.7W PO; -SYN100 PO
[2016-10-06 17:37] LABS: HEMATOCRIT 23.7 % (37-47); MEAN CORPUSCULAR HEMOGLOBIN 32.4 pg (25-34); MEAN CORPUSCULAR HGB CONC 33.8 g/dl (32-36); MEAN PLATELET VOLUME 9.5 fL (7.4-10.4); PLATELET COUNT 203 K/uL (130-400); RED BLOOD COUNT 2.47 M/uL (4.2-5.4)
[2016-10-06 18:52] LABS: ANISOCYTOSIS PRESENT; COMPLETE YES; ECHINOCYTES 1+; LYMPHOCYTE % 3.5 %; POLYCHROMASIA 1+
== END | disposition home or self-care (01) ==
LOC: C.LABBFT 12:28
PROVIDERS: ATTEND Physician Assistant Medical
DX: N18.9 Chronic kidney disease, unspecified (principal)

== ENCOUNTER → 2016-10-15 | Outpatient (CLI) | payer BC, OTHER ==
[~2016-10-15] MED LIST changes: +BCTCR/30 EXT; +CLC100 PO; -DOCU-94 PO; +FURO-85 PO; +MCRK20 PO; +NYSS/ PO; +PRAV20TA PO; +PRD/1 PO; -PRD20 PO; +PRED10TA PO; +PSYL1.7W PO
[2016-10-15 12:41] LABS: MEAN CORPUSCULAR HEMOGLOBIN 31.1 pg (25-34); RED BLOOD COUNT 3.51 M/uL (4.2-5.4); WHITE BLOOD COUNT 14.21 K/uL (4.8-10.8)
[2016-10-15 12:44] LABS: MEAN PLATELET VOLUME 10.6 fL (7.4-10.4); PLATELET COUNT 76 K/uL (130-400)
[2016-10-15 13:05] LABS: BLOOD UREA NITROGEN 59 mg/dl (7-18); BUN/CREATININE RATIO 29.6 (10-20); CALCIUM 7.9 mg/dl (8.5-10.1); CARBON DIOXIDE 23 mmol/L (21-32); CHLORIDE 96 mmol/L (98-107); GLUCOSE 152 mg/dl (70-99); POTASSIUM 4.8 mmol/L (3.5-5.1); SODIUM 131 mmol/L (136-145)
== END | disposition home or self-care (01) ==
LOC: C.LABBFT 10:30
PROVIDERS: ATTEND Student in an Organized Health Care Education/Training Program
DX: N17.9 Acute kidney failure, unspecified (principal); D64.9 Anemia, unspecified

== ENCOUNTER → 2016-10-19 | Outpatient (CLI) | payer BC ==
[2016-10-19 12:20] LABS: HEMATOCRIT 31.7 % (37-47); MEAN CELL VOLUME 96.6 fL (80-100); MEAN CORPUSCULAR HEMOGLOBIN 31.1 pg (25-34); MEAN CORPUSCULAR HGB CONC 32.2 g/dl (32-36); RED BLOOD COUNT 3.28 M/uL (4.2-5.4); WHITE BLOOD COUNT 8.95 K/uL (4.8-10.8)
[2016-10-19 12:29] LABS: BLOOD UREA NITROGEN 50 mg/dl (7-18); BUN/CREATININE RATIO 26.5 (10-20); CALCIUM 8.2 mg/dl (8.5-10.1); CARBON DIOXIDE 23 mmol/L (21-32); CHLORIDE 102 mmol/L (98-107); GLUCOSE 146 mg/dl (70-99); POTASSIUM 4.1 mmol/L (3.5-5.1); SODIUM 135 mmol/L (136-145)
[2016-10-19 12:34] LABS: MEAN PLATELET VOLUME 9.7 fL (7.4-10.4); PLATELET COUNT 95 K/uL (130-400)
== END | disposition home or self-care (01) ==
LOC: C.LABBFT 09:22
PROVIDERS: ATTEND Physician Assistant Medical
DX: N18.9 Chronic kidney disease, unspecified (principal); R04.89 Hemorrhage from other sites in respiratory passages; R04.2 Hemoptysis

== ENCOUNTER → 2016-10-22 | Outpatient (CLI) | payer BC ==
--- NOTE | 2016-10-22 14:02 | DIAGNOSTIC IMAGING REPORT ---
LEFT LOWER EXTREMITY VENOUS DOPPLER HISTORY: Left leg swelling. N18.9 Anemia, chronic renal [id number] Essential [id number] COMPARISON STUDY: None. FINDINGS: There is normal compressibility, flow, and augmentation within the left lower extremity deep venous system. IMPRESSION: No DVT within the left lower extremity. Electronically signed by: Jaswinder Cho M.D. 10/22/2016 2:00 PM Dictated Date/Time: 10/22/2016 1:59 PM
== END | disposition home or self-care (01) ==
LOC: C.ULTR 13:13
PROVIDERS: ATTEND Internal Medicine Nephrology
DX: E55.9 Vitamin D deficiency, unspecified (principal); N18.3 Chronic kidney disease, stage 3 (moderate); R80.9 Proteinuria, unspecified; I12.9 Hypertensive chronic kidney disease with stage 1 through stage 4 chronic kidney disease, or unspecified chronic kidney disease; M79.605 Pain in left leg; R60.0 Localized edema

== ENCOUNTER → 2016-10-23 | Outpatient (CLI) | payer BC ==
[2016-10-23 16:50] LABS: URINE APPEARANCE CLOUDY (CLEAR); URINE BILIRUBIN NEG (NEG); URINE COLOR DK YELLOW; URINE EPITHELIAL CELL AUTO >30 /lpf (0-5); URINE NITRITE NEG (NEG); URINE PH 5.5 (4.5-7.5); URINE SPECIFIC GRAVITY 1.019 (1.000-1.030); UROBILINOGEN NEG (NEG); ZZUR CULT IF INDIC CLEAN CATCH YES
[2016-10-23 16:56] LABS: MANUAL MICROSCOPIC REQUIRED? NO; REVIEW REQ? NO
== END | disposition home or self-care (01) ==
LOC: C.LABSPEC 16:22
PROVIDERS: ATTEND Internal Medicine
DX: N39.0 Urinary tract infection, site not specified (principal)

== ENCOUNTER → 2016-10-27 | Outpatient (CLI) | payer BC ==
[2016-10-27 18:16] LABS: HEMATOCRIT 31.6 % (37-47); MEAN CELL VOLUME 93.5 fL (80-100); MEAN CORPUSCULAR HEMOGLOBIN 30.8 pg (25-34); MEAN CORPUSCULAR HGB CONC 32.9 g/dl (32-36); RED BLOOD COUNT 3.38 M/uL (4.2-5.4); WHITE BLOOD COUNT 8.91 K/uL (4.8-10.8)
[2016-10-27 18:45] LABS: BLOOD UREA NITROGEN 39 mg/dl (7-18); BUN/CREATININE RATIO 22.9 (10-20); CALCIUM 8.1 mg/dl (8.5-10.1); CARBON DIOXIDE 25 mmol/L (21-32); CHLORIDE 96 mmol/L (98-107); GLUCOSE 139 mg/dl (70-99); POTASSIUM 4.1 mmol/L (3.5-5.1); SODIUM 131 mmol/L (136-145)
[2016-10-27 18:49] LABS: MEAN PLATELET VOLUME 8.9 fL (7.4-10.4); PLATELET COUNT 99 K/uL (130-400)
[2016-10-27 19:03] LABS: ALB/GLOB RATIO 1.2 (0.9-2); ALKALINE PHOSPHATASE 75 U/L (45-117); ALT/SGPT 36 U/L (12-78); AST/SGOT 25 U/L (15-37)
== END | disposition home or self-care (01) ==
LOC: C.LAB 17:37
PROVIDERS: ATTEND Nurse Practitioner
DX: I35.9 Nonrheumatic aortic valve disorder, unspecified (principal)

== ENCOUNTER → 2016-11-02 | Outpatient (CLI) | payer BC ==
[2016-11-02 08:21] LABS: HEMATOCRIT 28.9 % (37-47); MEAN CELL VOLUME 95.4 fL (80-100); MEAN CORPUSCULAR HEMOGLOBIN 31.7 pg (25-34); MEAN CORPUSCULAR HGB CONC 33.2 g/dl (32-36); MEAN PLATELET VOLUME 9.4 fL (7.4-10.4); PLATELET COUNT 104 K/uL (130-400); RED BLOOD COUNT 3.03 M/uL (4.2-5.4); WHITE BLOOD COUNT 7.32 K/uL (4.8-10.8)
[2016-11-02 08:28] LABS: ALT/SGPT 32 U/L (12-78); BLOOD UREA NITROGEN 44 mg/dl (7-18); BUN/CREATININE RATIO 22.1 (10-20); CARBON DIOXIDE 29 mmol/L (21-32); CHLORIDE 100 mmol/L (98-107); GLUCOSE 88 mg/dl (70-99); POTASSIUM 3.7 mmol/L (3.5-5.1); SODIUM 136 mmol/L (136-145)
[2016-11-02 08:31] LABS: ALB/GLOB RATIO 1.1 (0.9-2); ALKALINE PHOSPHATASE 72 U/L (45-117); AST/SGOT 19 U/L (15-37)
== END | disposition home or self-care (01) ==
LOC: C.LABCC 07:45
PROVIDERS: ATTEND Internal Medicine
DX: R60.9 Edema, unspecified (principal); D64.9 Anemia, unspecified

== ENCOUNTER → 2016-11-03 | Outpatient (CLI) | payer BC ==
--- NOTE | 2016-11-03 11:54 | DIAGNOSTIC IMAGING REPORT ---
CHEST 2 VIEWS ROUTINE CLINICAL HISTORY: ORAL THRUSH (112) COMPARISON STUDY: 10/12/2016 FINDINGS: The cardiac and mediastinal contours remain stable. There are linear atelectatic changes present at the left lung base. There are resolving bilateral interstitial opacities. There are advanced arthritic changes within the left shoulder.[ IMPRESSION: Continued interval improvement in the previously identified bilateral interstitial opacities. Electronically signed by: Logan Fuller M.D. 11/03/2016 11:52 AM Dictated Date/Time: 11/03/2016 11:50 AM
== END | disposition home or self-care (01) ==
LOC: C.RADBBURG 11:32
PROVIDERS: ATTEND Physician Assistant
DX: B37.0 Candidal stomatitis (principal)

== ENCOUNTER → 2016-11-04 | Outpatient (CLI) | payer BC ==
[2016-11-04 09:35] LABS: BLOOD UREA NITROGEN 45 mg/dl (7-18); BUN/CREATININE RATIO 28.1 (10-20); CARBON DIOXIDE 28 mmol/L (21-32); CHLORIDE 102 mmol/L (98-107); GLUCOSE 81 mg/dl (70-99); POTASSIUM 3.2 mmol/L (3.5-5.1); SODIUM 139 mmol/L (136-145)
== END ==
LOC: C.LABCC 07:48
PROVIDERS: ATTEND Internal Medicine
DX: N18.9 Chronic kidney disease, unspecified (principal)

== ENCOUNTER → 2016-11-11 | Outpatient (CLI) | payer BC ==
[2016-11-11 17:44] LABS: FERRITIN 254.4 ng/ml (8.0-388.0)
--- NOTE | 2016-11-16 11:17 | CODING QUERY MEDICAL NECESSITY ---
SUPPORTING DIAGNOSIS NEEDED Dr. Gaitan, A supporting diagnosis is required for the test/procedure performed on this patient in order for us to be reimbursed by the patient's insurance. Please provide a supporting diagnosis for the following test/procedure listed below next to the test name along with your signature. *If there is no additional diagnosis for this patient that would support the following test/procedure please document that below next to the test/procedure. Test(s)/Procedure(s) that require a supporting diagnosis: * ([id number]) FOLATE LEVEL DIAGNOSIS: * ([id number]) B12 VITAMIN LEVEL DIAGNOSIS: DATE OF SERVICE: 11/11/16 Provider Signature: Date: Thank you Tarik Diallo [facility] Information Management Once completed, please kindly fax back to [phone] For questions please call [phone]
== END | disposition home or self-care (01) ==
LOC: C.LABBFT 12:51
PROVIDERS: ATTEND Internal Medicine Nephrology
DX: I12.9 Hypertensive chronic kidney disease with stage 1 through stage 4 chronic kidney disease, or unspecified chronic kidney disease (principal); R80.9 Proteinuria, unspecified; E55.9 Vitamin D deficiency, unspecified; N18.3 Chronic kidney disease, stage 3 (moderate); D64.9 Anemia, unspecified

== ENCOUNTER → 2016-11-18 | Outpatient (CLI) | payer BC ==
[~2016-11-18] MED LIST changes: -PRD/1 PO
[2016-11-18 12:07] LABS: HEMATOCRIT 32.4 % (37-47); MEAN CELL VOLUME 98.8 fL (80-100); MEAN CORPUSCULAR HEMOGLOBIN 31.4 pg (25-34); MEAN CORPUSCULAR HGB CONC 31.8 g/dl (32-36); MEAN PLATELET VOLUME 8.5 fL (7.4-10.4); PLATELET COUNT 207 K/uL (130-400); RED BLOOD COUNT 3.28 M/uL (4.2-5.4); WHITE BLOOD COUNT 10.83 K/uL (4.8-10.8)
[2016-11-18 12:12] LABS: URINE APPEARANCE CLOUDY (CLEAR); URINE BILIRUBIN NEG (NEG); URINE COLOR YELLOW; URINE EPITHELIAL CELL AUTO >30 /lpf (0-5); URINE NITRITE NEG (NEG); URINE SPECIFIC GRAVITY 1.015 (1.000-1.030); UROBILINOGEN NEG (NEG)
[2016-11-18 12:13] LABS: MANUAL MICROSCOPIC REQUIRED? NO; REVIEW REQ? NO
[2016-11-18 13:00] LABS: BLOOD UREA NITROGEN 31 mg/dl (7-18); BUN/CREATININE RATIO 19.2 (10-20); CALCIUM 8.4 mg/dl (8.5-10.1); CARBON DIOXIDE 28 mmol/L (21-32); CHLORIDE 101 mmol/L (98-107); GLUCOSE 148 mg/dl (70-99); PHOSPHORUS 3.2 mg/dl (2.5-4.9); POTASSIUM 3.7 mmol/L (3.5-5.1); SODIUM 140 mmol/L (136-145)
[2016-11-18 13:38] LABS: URINE TOTAL PROTEIN 55.4 mg/dl (0-11.9)
== END | disposition home or self-care (01) ==
LOC: C.LABBFT 10:45
PROVIDERS: ATTEND Internal Medicine Nephrology
DX: N18.9 Chronic kidney disease, unspecified (principal); I10 Essential (primary) hypertension; E55.9 Vitamin D deficiency, unspecified; N18.3 Chronic kidney disease, stage 3 (moderate); R60.9 Edema, unspecified

== ENCOUNTER → 2016-11-27 | Outpatient (CLI) | payer BC ==
--- NOTE | 2016-11-27 11:53 | DIAGNOSTIC IMAGING REPORT ---
CHEST 2 VIEWS ROUTINE CLINICAL HISTORY: R04.2 [id number] Abnormal chest [id number] COMPARISON STUDY: 11/03/2016 FINDINGS: The cardiac and mediastinal contours remain stable. There is a calcified right hilar lymph node. There is no failure. There is no focal pulmonary consolidation. There is a linear left basilar atelectasis/scarring. On the lateral view, there is a nodular opacity visualized at the posterior lung base. This likely represents an area of atelectasis/scarring and remain similar to prior studies. There is colonic interposition on the right.[ There is no failure. IMPRESSION: 1. No acute findings 2. Stable left basilar subsegmental atelectasis/scarring 3. Stable nodular opacity at the posterior lung base likely representing an area of atelectasis/scarring Electronically signed by: Logan Fuller M.D. 11/27/2016 11:52 AM Dictated Date/Time: 11/27/2016 11:49 AM
== END ==
LOC: C.RADBBURG 11:25
PROVIDERS: ATTEND Physician Assistant
DX: R04.1 Hemorrhage from throat (principal); R93.8 Abnormal findings on diagnostic imaging of other specified body structures; R04.2 Hemoptysis

== ENCOUNTER 2016-12-14 09:36 | Inpatient (IN) | payer BC, OTHER ==
[~2016-12-14] VITALS: Ht 162.6 cm; Wt 67.1 kg
[~2016-12-14 09:36] MED LIST changes: -BCTCR/30 EXT; -CLC100 PO; -FURO-85 PO; -MCRK20 PO; -NYSS/ PO; -PRED10TA PO; -PSYL1.7W PO
[2016-12-14] MEDS ORDERED: OPTIRAY 320 IV PRN (10:15)
--- NOTE | 2016-12-14 10:26 | EMERGENCY ROOM VISIT NOTE ---
History Report prepared by Ramya: Asmita Veloz Under the Supervision of: Dr. Jesus Dangelo M.D. First contact with patient: 09:41 Chief Complaint: CONSTIPATION Stated Complaint: CONSTIPATION X 5-6 DAYS, SOME PAIN IN [place] History of Present Illness The patient is a 86 year old female who presents to the Emergency Room with complaints of constant constipation for the past 5-6 days. Two days ago she used a suppository and that seemed to alleviate some of her abdominal pain, but she was still unable to have a bowel movement. The patient has been complaining of lower abdominal pain and states that her abdomen feels hard. She is also experiencing nausea. The patient rates her current pain as a 4/10 in severity. She is not currently taking any blood thinners. She has a history of an appendectomy and denies any other previous abdominal surgeries. Source of History: patient, family (son) Onset: 5-6 days ago Position: abdomen Symptom Intensity: 4/10 Quality: other (constipation) Timing: constant Modifying Factors (Relieving): other (suppositories) Associated Symptoms: + nausea Review of Systems See HPI for pertinent positives & negatives. A total of 10 systems reviewed and were otherwise negative. 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 Family History Heart disease Social History Smoking Status: Never Smoker Drug Use: none Marital Status: Housing Status: lives alone Occupation Status: retired Current/Historical Medications Scheduled Cholecalciferol (Vitamin D3), 1 TAB PO DAILY Cyanocobalamin (Vitamin B-12), 1,000 MCG PO DAILY Diltiazem Hcl Ext Rel (Tiazac), 240 MG PO DAILY Docusate Sodium (Docusate Sodium), 100 MG PO DAILY Furosemide (Lasix), 40 MG PO DAILY Levothyroxine Sodium (Synthroid), 75 MCG PO DAILY Mupirocin 2% (Bactroban 2%), 1 APPLN EXT UD Nystatin (Nystatin Suspension), 5 ML PO QID Oxygen (Oxygen), 2 LITERS NA PRN Pantoprazole (Protonix), 20 MG PO BID Potassium Chloride (Klor-Con M20), 20 MEQ PO DAILY Pravastatin (Pravachol ), 20 MG PO HS Psyllium (Metamucil), 2 PIECE PO DAILY Miscellaneous Medications Prednisone Tab (Prednisone), 10 MG PO Allergies Coded Allergies: Doxycycline (Verified Allergy, Severe, RASH, 12/14/16) Trimethoprim (Verified Allergy, Severe, RASH, 12/14/16) Adhesives (Verified Allergy, Unknown, HAD RXN TO [employer], ) Amoxicillin (Unverified Allergy, Unknown, RASH, 12/14/16) Atorvastatin (Unverified Allergy, Unknown, UNKNOWN, 12/14/16) Carbamazepine (Verified Allergy, Unknown, 12/14/16) Hydantoins (Verified Allergy, Unknown, 12/14/16) Levofloxacin (Unverified Allergy, Unknown, UNKNOWN, 12/14/16) Penicillins (Verified Allergy, Unknown, AMOXIL, 12/14/16) has tolerated cefepime and ceftriaxone on previous admissions Phenytoin (Verified Allergy, Unknown, 12/14/16) Sulfamethoxazole w/Trimethoprim (Unverified Allergy, Unknown, VASCULITIS, 12/14/16) Physical Exam Vital Signs Date Time Temp Pulse Resp B/P (MAP) Pulse Ox O2 Delivery O2 Flow Rate FiO2 12/14/16 16:34 92 Nasal Cannula 2.0 12/14/16 16:33 92 18 151/82 82 Room Air 12/14/16 13:38 87 12/14/16 13:31 88 20 154/72 95 Room Air 12/14/16 12:10 85 20 167/99 97 Room Air 12/14/16 11:16 93 19 159/93 96 Room Air 12/14/16 10:19 90 12/14/16 09:39 36.7 88 18 139/76 98 Room Air Physical Exam GENERAL: Patient is a healthy-appearing well-nourished 86 year old female. HEAD: Normocephalic atraumatic EYES: Ocular movements intact pupils equal and react to light OROPHARYNX mucous membranes are moist no exudates present no erythema or edema present NECK: Supple no nuchal rigidity CHEST: Good equal expansion LUNGS: Clear and equal to auscultation CARDIAC: Normal S1 and S2, grade 2/6 systolic murmur. ABDOMEN: Distended and mildly tender on exam, no guarding BACK: No CVA tenderness EXTREMITIES: No pain upon palpation normal muscle strength in all groups no clubbing cyanosis or edema NEURO: Patient is following commands is answering questions appropriately. Alert and oriented x3 Cranial Nerves 2-12 grossly intact Medical Decision & Procedures ER Provider Diagnostic Interpretation: Radiology results as stated below per my review and radiologist interpretation: CT OF THE ABDOMEN AND PELVIS WITH CONTRAST CLINICAL HISTORY: Constipation. Abdominal pain. COMPARISON STUDY: CT of the abdomen and pelvis June 13, 2008. TECHNIQUE: Following IV administration of 90 mL of Optiray-320, axial images of the abdomen and pelvis were obtained from the lung bases to the proximal femurs. Images were reviewed in the axial, sagittal, and coronal planes. IV contrast was administered without complication. CT DOSE: 327.00 mGy.cm FINDINGS: Mild groundglass opacities are noted within Visual portions of the lungs. The heart is moderately enlarged. There is no pericardial effusion. There are multiple gallstones within the gallbladder. There is moderate dilatation of the common bile duct which has developed since exam of June 13, 2008. There are densities within the distal common bile duct measure up to 1.3 cm and likely reflect common bile calculi. There is a diverticulum of the second portion the duodenum. There is no pancreatic ductal dilatation. The spleen and adrenal glands are unremarkable. There is moderate to severe left and severe right renal atrophy which has progressed since CT of June 13, 2008. There is mild left hydroureteronephrosis of uncertain etiology. Images of the pelvis are degraded by streak artifact from bilateral total hip arthroplasties. There is a large amount of stool within the rectum as well as the colon. The findings represent fecal impaction. There is mild infiltration within the lower abdomen and the pelvis. A colitis would be difficult to exclude. There is no pneumatosis, free air or portal venous gas. This extensive atherosclerotic plaque of the abdominal aorta. A few subcentimeter renal lesions likely reflect cysts. IMPRESSION: 1. Findings consistent with fecal impaction. Massive amount of stool within the rectum with large amount of stool within the colon. Minimal adjacent infiltration is nonspecific but could reflect a colitis related to the fecal impaction. 2. Choledocholithiasis and cholelithiasis with moderate biliary ductal dilatation. 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 3. Mild left hydroureteronephrosis of uncertain etiology. 4. Moderate sized hiatal hernia. Electronically signed by: Jason Arzola M.D. 12/14/2016 1:24 PM Dictated Date/Time: 12/14/2016 1:05 PM Laboratory Results 12/14/16 10:15 Red Blood Count 3.20, Mean Corpuscular Volume 96.3, Mean Corpuscular Hemoglobin 30.3, Mean Corpuscular Hemoglobin Concent 31.5, Mean Platelet Volume 8.7, Neutrophils (%) (Auto) 67.9, Lymphocytes (%) (Auto) 23.0, Monocytes (%) (Auto) 6.8, Eosinophils (%) (Auto) 0.4, Basophils (%) (Auto) 0.4, Neutrophils # (Auto) 6.63, Lymphocytes # (Auto) 2.24, Monocytes # (Auto) 0.66, Eosinophils # (Auto) 0.04, Basophils # (Auto) 0.04 12/14/16 10:15 Test 12/14/16 10:15 White Blood Count 9.76 K/uL (4.8-10.8) Red Blood Count 3.20 M/uL (4.2-5.4) Hemoglobin 9.7 g/dL (12.0-16.0) Hematocrit 30.8 % (37-47) Mean Corpuscular Volume 96.3 fL (80-100) Mean Corpuscular Hemoglobin 30.3 pg (25-34) Mean Corpuscular Hemoglobin Concent 31.5 g/dl (32-36) Platelet Count 157 K/uL (130-400) Mean Platelet Volume 8.7 fL (7.4-10.4) Neutrophils (%) (Auto) 67.9 % Lymphocytes (%) (Auto) 23.0 % Monocytes (%) (Auto) 6.8 % Eosinophils (%) (Auto) 0.4 % Basophils (%) (Auto) 0.4 % Neutrophils # (Auto) 6.63 K/uL (1.4-6.5) Lymphocytes # (Auto) 2.24 K/uL (1.2-3.4) Monocytes # (Auto) 0.66 K/uL (0.11-0.59) Eosinophils # (Auto) 0.04 K/uL (0-0.5) Basophils # (Auto) 0.04 K/uL (0-0.2) RDW Standard Deviation 51.6 fL (36.4-46.3) RDW Coefficient of Variation 14.5 % (11.5-14.5) Immature Granulocyte % (Auto) 1.5 % Immature Granulocyte # (Auto) 0.15 K/uL (0.00-0.02) Acanthocytes 1+ Anion Gap 7.0 mmol/L (3-11) Est Creatinine Clear Calc Drug Dose 20.9 ml/min Estimated GFR () 33.0 Estimated GFR (Non- 28.5 BUN/Creatinine Ratio 13.1 (10-20) Calcium Level 8.3 mg/dl (8.5-10.1) Total Bilirubin 0.7 mg/dl (0.2-1) Direct Bilirubin 0.2 mg/dl (0-0.2) Aspartate Amino Transf (AST/SGOT) 20 U/L (15-37) Alanine Aminotransferase (ALT/SGPT) 21 U/L (12-78) Alkaline Phosphatase 80 U/L (45-117) Total Protein 6.6 gm/dl (6.4-8.2) Albumin 3.5 gm/dl (3.4-5.0) Lipase 249 U/L (73-393) Labs reviewed by ED physician. Medications Administered Medications (Trade) Dose Ordered Sig/Phillip Route Start Time Stop Time Status Last Admin Dose Admin Magnesium Citrate (Citrate Of Magnesia Soln) 150 ml NOW STAT PO 12/14/16 13:39 12/14/16 13:41 DC 12/14/16 13:59 150 ML Miscellaneous (Soap Suds Enema) 1 ea NOW STAT SD 12/14/16 13:39 12/14/16 13:41 DC 12/14/16 13:39 1 EA Metoclopramide HCl (Reglan Inj) 10 mg NOW STAT IV 12/14/16 15:15 12/14/16 15:16 DC 12/14/16 15:21 10 MG Sodium Chloride 500 ml @ 999 mls/hr Q31M STAT IV 12/14/16 15:15 12/14/16 15:45 DC 12/14/16 15:21 999 MLS/HR ED Course 0959: Past medical records reviewed. The patient was evaluated in room C4. A complete history and physical examination was performed. 1332: I reevaluated the patient and disimpacted a large amount of fecal material at this time. 1339: Soap Suds Enema SD, Magnesium Citrate 150 ml PO 1507: The patient became nauseated and vomited. 1515: NSS 500 ml @ 999 mls/hr IV, Reglan 10 mg IV 1556: I reassessed the patient at this time. She is resting more comfortably. I discussed the results and treatment plan with the patient and her son. I answered all pertaining questions that they had. They expressed understanding and verbalized agreement. 1559: I spoke with Dr. Lyons. We discussed the patients results and treatment plan. The patient will be evaluated by the [facility] for further management. Medical Decision Etiologies such as appendicitis, diverticulitis, PUD, biliary pathology, UTI, pancreatitis, obstruction, mesenteric ischemia, aortic pathology, infections, inflammatory bowel disease, renal colic, as well as others were entertained. Medication Reconciliation: I attest that I have personally reviewed the patient' s current medication list Blood Pressure Screening: Patient was found to have an elevated blood pressure and was referred to their primary care doctor for recheck and further treatment This is an 86-year-old female who presents emergency department complaining of constipation. Because of the nature the complaint as well as the fact that the patient has not been able to have a bowel movement for the past 5 days she was sent for a CAT scan the abdomen pelvis. This did not show any evidence of obstruction however the patient does have a rectal impaction. Because of this the patient was disimpacted by me. Further enemas were given by nursing staff as well as magnesium citrate however the patient did not feel safe going home. This reason and based on the fact that the patient has sterile colitis on CAT scan the patient was discussed with the hospitalist service who agreed to matter. Patient family were in agreement with the treatment plan. Consults Time Called: [phone] Consulting Physician: Dr. Lyons Returned Call: [phone] Lyons. We discussed the patients results and treatment plan. The patient will be evaluated by the [facility] for further management. Impression Primary Impression: Colitis Scribe Attestation The scribe's documentation has been prepared under my direction and personally reviewed by me in its entirety. I confirm that the note above accurately reflects all work, treatment, procedures, and medical decision making performed by me. Departure Information Dispostion Being Evaluated By Hospitalist Referrals Eugenio Cardenas M.D. (PCP) Patient Instructions My [facility]
[2016-12-14 10:35] LABS: HEMATOCRIT 30.8 % (37-47); MEAN CELL VOLUME 96.3 fL (80-100); MEAN CORPUSCULAR HEMOGLOBIN 30.3 pg (25-34); MEAN CORPUSCULAR HGB CONC 31.5 g/dl (32-36); MEAN PLATELET VOLUME 8.7 fL (7.4-10.4); PLATELET COUNT 157 K/uL (130-400); WHITE BLOOD COUNT 9.76 K/uL (4.8-10.8)
[2016-12-14 10:55] LABS: BUN/CREATININE RATIO 13.1 (10-20); CALCIUM 8.3 mg/dl (8.5-10.1); CREATININE 1.6 mg/dl (0.60-1.20); POTASSIUM 3.5 mmol/L (3.5-5.1)
[2016-12-14 11:00] LABS: ACANTHOCYTES 1+; BASO % 0.4 %; BASO ABS # 0.04 K/uL (0-0.2); COMPLETE YES; EOS % 0.4 %; IG% 1.5 %; LYMPH ABS # 2.24 K/uL (1.2-3.4); MONO % 6.8 %; NEUT % 67.9 %
[2016-12-14] MEDS ORDERED: NYSS/ PO (11:59)
[2016-12-14] MEDS ORDERED: CLC100 PO (11:59)
[2016-12-14] MEDS ORDERED: FURO-85 PO (11:59)
[2016-12-14] MEDS ORDERED: MCRK20 PO (11:59)
[2016-12-14] MEDS ORDERED: BCTCR/30 EXT (11:59)
[2016-12-14] MEDS ORDERED: PSYL1.7W PO (11:59)
[2016-12-14] MEDS ORDERED: PRED10TA PO (11:59)
--- NOTE | 2016-12-14 13:26 | DIAGNOSTIC IMAGING REPORT ---
CT OF THE ABDOMEN AND PELVIS WITH CONTRAST CLINICAL HISTORY: Constipation. Abdominal pain. COMPARISON STUDY: CT of the abdomen and pelvis June 13, 2008. TECHNIQUE: Following IV administration of 90 mL of Optiray-320, axial images of the abdomen and pelvis were obtained from the lung bases to the proximal femurs. Images were reviewed in the axial, sagittal, and coronal planes. IV contrast was administered without complication. CT DOSE: 327.00 mGy.cm FINDINGS: Mild groundglass opacities are noted within Visual portions of the lungs. The heart is moderately enlarged. There is no pericardial effusion. There are multiple gallstones within the gallbladder. There is moderate dilatation of the common bile duct which has developed since exam of June 13, 2008. There are densities within the distal common bile duct measure up to 1.3 cm and likely reflect common bile calculi. There is a diverticulum of the second portion the duodenum. There is no pancreatic ductal dilatation. The spleen and adrenal glands are unremarkable. There is moderate to severe left and severe right renal atrophy which has progressed since CT of June 13, 2008. There is mild left hydroureteronephrosis of uncertain etiology. Images of the pelvis are degraded by streak artifact from bilateral total hip arthroplasties. There is a large amount of stool within the rectum as well as the colon. The findings represent fecal impaction. There is mild infiltration within the lower abdomen and the pelvis. A colitis would be difficult to exclude. There is no pneumatosis, free air or portal venous gas. This extensive atherosclerotic plaque of the abdominal aorta. A few subcentimeter renal lesions likely reflect cysts. IMPRESSION: 1. Findings consistent with fecal impaction. Massive amount of stool within the rectum with large amount of stool within the colon. Minimal adjacent infiltration is nonspecific but could reflect a colitis related to the fecal impaction. 2. Choledocholithiasis and cholelithiasis with moderate biliary ductal dilatation. 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 3. Mild left hydroureteronephrosis of uncertain etiology. 4. Moderate sized hiatal hernia. Electronically signed by: Jason Arzola M.D. 12/14/2016 1:24 PM Dictated Date/Time: 12/14/2016 1:05 PM
[2016-12-14] MEDS ORDERED: MAGNESIUM CITRATE 296 ML/BTL PO STA (13:39)
[2016-12-14] MEDS ORDERED: SOAP SUDS ENEMA PR STA (13:39)
[2016-12-14] MEDS ORDERED: SODIUM CHLORIDE 0.9% 500ML 500 ML IV STA (15:15)
[2016-12-14] MEDS ORDERED: METOCLOPRAMIDE HCL INJ 5 MG/ML 2 ML VIAL IV STA (15:15)
[2016-12-14] MEDS ORDERED: BISACODYL 10 MG SUPP PR STA (16:56)
[2016-12-14] MEDS ORDERED: BISACODYL 10 MG SUPP PR PRN (17:00)
[2016-12-14] MEDS ORDERED: SODIUM CHLORIDE 0.9% 1000ML 1,000 ML IV SCH (17:00)
[2016-12-14 18:22] VITALS: BP 159/76; PULSE 85; TEMP 36.4; O2SAT 90
[2016-12-14] MEDS: NYSTATIN SUSP 500,000 U/5 ML UDC PO SCH ×2 (19:20→21:35)
[2016-12-14] MEDS: PANTOprazole SOD 40 MG TAB PO SCH (19:33)
[2016-12-14] MEDS: DOCUSATE SODIUM 100 MG CAP PO SCH (19:33)
[2016-12-14] MEDS: PRAVASTATIN SOD 20 MG TAB PO SCH (19:34)
[2016-12-14 20:40] VITALS: BP 129/76; PULSE 98; TEMP 36.6; O2SAT 74
[2016-12-14 20:54] VITALS: O2SAT 90
--- NOTE | 2016-12-14 21:46 | History and Physical ---
History & Physical Date & Time of Service: Dec 14, 2016 at 21:27 Chief Complaint: Coliltis, Obstipation Primary Care Physician: Eugenio Cardenas M.D. History of Present Illness Source: patient, family The patient is an 86-year-old female who presents emergency department with complaint of no bowel movement for the past 5-6 days. She did try suppository 2 days ago that did not result in a bowel movement, but she reports to help relieve some of her abdominal pain. She reports that her abdomen feels hard and that she is nauseous but has not had a vomiting. Her only abdominal surgeries are that of an appendectomy. She has not had any recent travels or had any sick exposures. 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 Family History Heart disease Social History Smoking Status: Never Smoker Drug Use: none Marital Status: Housing status: lives with family Occupational Status: retired Immunizations History of Influenza Vaccine: Yes History of Tetanus Vaccine?: Unknown History of Pneumococcal: Yes History of Hepatitis B Vaccine: Unknown Multi-Drug Resistant Organisms History of MDRO: No Allergies Coded Allergies: Doxycycline (Verified Allergy, Severe, RASH, 12/14/16) Trimethoprim (Verified Allergy, Severe, RASH, 12/14/16) Adhesives (Verified Allergy, Unknown, HAD RXN TO [employer] PATCHES, ) Amoxicillin (Unverified Allergy, Unknown, RASH, 12/14/16) Atorvastatin (Unverified Allergy, Unknown, UNKNOWN, 12/14/16) Carbamazepine (Verified Allergy, Unknown, 12/14/16) Hydantoins (Verified Allergy, Unknown, 12/14/16) Levofloxacin (Unverified Allergy, Unknown, UNKNOWN, 12/14/16) Penicillins (Verified Allergy, Unknown, AMOXIL, 12/14/16) has tolerated cefepime and ceftriaxone on previous admissions Phenytoin (Verified Allergy, Unknown, 12/14/16) Sulfamethoxazole w/Trimethoprim (Unverified Allergy, Unknown, VASCULITIS, 12/14/16) Home Medications Scheduled Cholecalciferol (Vitamin D3), 1 TAB PO DAILY Cyanocobalamin (Vitamin B-12), 1,000 MCG PO DAILY Diltiazem Hcl Ext Rel (Tiazac), 240 MG PO DAILY Docusate Sodium (Docusate Sodium), 100 MG PO DAILY Furosemide (Lasix), 40 MG PO DAILY Levothyroxine Sodium (Synthroid), 75 MCG PO DAILY Mupirocin 2% (Bactroban 2%), 1 APPLN EXT UD Nystatin (Nystatin Suspension), 5 ML PO QID Oxygen (Oxygen), 2 LITERS NA PRN Pantoprazole (Protonix), 20 MG PO BID Potassium Chloride (Klor-Con M20), 20 MEQ PO DAILY Pravastatin (Pravachol ), 20 MG PO HS Psyllium (Metamucil), 2 PIECE PO DAILY Miscellaneous Medications Prednisone Tab (Prednisone), 10 MG PO Review of Systems The patient denies chest pain, palpitations, shortness of breath, cough, lower extremity swelling, vision change, hearing change, sore throat, fevers, chills, sweats, weight change, blood in urine or stool, dysuria, urinary frequency or urgency, lightheadedness, dizziness, headache, rash, abnormal bruising or bleeding, imbalance, focal or generalized weakness, numbness or tingling in arms or legs, arthralgias or myalgias, back or neck pain, night sweats, or allergy symptoms. The review of systems is otherwise negative other than for that already noted above, and at least 10 systems have been reviewed. Physical Exam Vital Signs Date Time Temp Pulse Resp B/P (MAP) Pulse Ox O2 Delivery O2 Flow Rate FiO2 12/14/16 20:54 90 Non-Rebreather 10.0 12/14/16 20:40 36.6 98 20 129/76 (93) 74 Nasal Cannula 4.0 12/14/16 18:22 36.4 85 19 159/76 (103) 90 Nasal Cannula 2.0 12/14/16 16:34 92 Nasal Cannula 2.0 12/14/16 16:33 92 18 151/82 82 Room Air 12/14/16 13:38 87 12/14/16 13:31 88 20 154/72 95 Room Air 12/14/16 12:10 85 20 167/99 97 Room Air 12/14/16 11:16 93 19 159/93 96 Room Air 12/14/16 10:19 90 12/14/16 09:39 36.7 88 18 139/76 98 Room Air The patient is awake, alert and oriented 3, normocephalic and atraumatic, lying in bed and in no acute distress. HEENT--PERRL, EOMI, mucous membranes and oropharynx dry. Neck--supple, no JVD or bruits, thyroid normal, trachea midline, no adenopathy. Heart--normal S1 and S2, no extra beats, no murmurs, rubs or gallops. Lungs--clear bilaterally with decreased breath sounds throughout, no respiratory distress, no accessory muscle use. Abdomen--decreased bowel sounds, mildly distended, mildly firm, nontender. Extremities--no cyanosis, clubbing or edema. There are good distal pulses b/l. Dermatologic--normal skin turgor, normal color, warm and dry, no abnormal lymph nodes, no rash. Neurologic--cranial nerves II through XII grossly intact, motor and sensory examination normal. Rheumatologic--normal range of motion, nontender, muscles and joints. Psychiatric--flat affect Diagnostics Laboratory Results Results Past 24 Hours Test 12/14/16 10:15 Range/Units White Blood Count 9.76 4.8-10.8 K/uL Red Blood Count 3.20 4.2-5.4 M/uL Hemoglobin 9.7 12.0-16.0 g/dL Hematocrit 30.8 37-47 % Mean Corpuscular Volume 96.3 80-100 fL Mean Corpuscular Hemoglobin 30.3 25-34 pg Mean Corpuscular Hemoglobin Concent 31.5 32-36 g/dl Platelet Count 157 130-400 K/uL Mean Platelet Volume 8.7 7.4-10.4 fL Neutrophils (%) (Auto) 67.9 % Lymphocytes (%) (Auto) 23.0 % Monocytes (%) (Auto) 6.8 % Eosinophils (%) (Auto) 0.4 % Basophils (%) (Auto) 0.4 % Neutrophils # (Auto) 6.63 1.4-6.5 K/uL Lymphocytes # (Auto) 2.24 1.2-3.4 K/uL Monocytes # (Auto) 0.66 0.11-0.59 K/uL Eosinophils # (Auto) 0.04 0-0.5 K/uL Basophils # (Auto) 0.04 0-0.2 K/uL RDW Standard Deviation 51.6 36.4-46.3 fL RDW Coefficient of Variation 14.5 11.5-14.5 % Immature Granulocyte % (Auto) 1.5 % Immature Granulocyte # (Auto) 0.15 0.00-0.02 K/uL Acanthocytes 1+ Sodium Level 140 136-145 mmol/L Potassium Level 3.5 3.5-5.1 mmol/L Chloride Level 103 98-107 mmol/L Carbon Dioxide Level 30 21-32 mmol/L Anion Gap 7.0 3-11 mmol/L Blood Urea Nitrogen 21 7-18 mg/dl Creatinine 1.60 0.60-1.20 mg/dl Est Creatinine Clear Calc Drug Dose 20.9 ml/min Estimated GFR () 33.0 Estimated GFR (Non- 28.5 BUN/Creatinine Ratio 13.1 10-20 Random Glucose 120 70-99 mg/dl Calcium Level 8.3 8.5-10.1 mg/dl Total Bilirubin 0.7 0.2-1 mg/dl Direct Bilirubin 0.2 0-0.2 mg/dl Aspartate Amino Transf (AST/SGOT) 20 15-37 U/L Alanine Aminotransferase (ALT/SGPT) 21 12-78 U/L Alkaline Phosphatase 80 45-117 U/L Total Protein 6.6 6.4-8.2 gm/dl Albumin 3.5 3.4-5.0 gm/dl Lipase 249 73-393 U/L Diagnostic Radiology Patient Name: KEMI SULTANA Unit Number: [id number] Dictated: 12/14/161304 Transcribed: 12/14/16 1314 JA Printed Date/Time: [~ rep prt dt]/[~ rep prt tm] [~ rep ct labl] - [~ rep ct ivnm] [facility] [place] [address] Dictated: 12/14/16 130 Transcribed: 12/14/16 1314 JA Printed Date/Time: [~ rep prt dt]/[~ rep prt tm] [~ rep ct labl] - [~ rep ct ivnm] [~ rep ct add3]] CT OF THE ABDOMEN AND PELVIS WITH CONTRAST CLINICAL HISTORY: Constipation. Abdominal pain. COMPARISON STUDY: CT of the abdomen and pelvis June 13, 2008. TECHNIQUE: Following IV administration of 90 mL of Optiray-320, axial images of the abdomen and pelvis were obtained from the lung bases to the proximal femurs. Images were reviewed in the axial, sagittal, and coronal planes. IV contrast was administered without complication. CT DOSE: 327.00 mGy.cm FINDINGS: Mild groundglass opacities are noted within Visual portions of the lungs. The heart is moderately enlarged. There is no pericardial effusion. There are multiple gallstones within the gallbladder. There is moderate dilatation of the common bile duct which has developed since exam of June 13, 2008. There are densities within the distal common bile duct measure up to 1.3 cm and likely reflect common bile calculi. There is a diverticulum of the second portion the duodenum. There is no pancreatic ductal dilatation. The spleen and adrenal glands are unremarkable. There is moderate to severe left and severe right renal atrophy which has progressed since CT of June 13, 2008. There is mild left hydroureteronephrosis of uncertain etiology. Images of the pelvis are degraded by streak artifact from bilateral total hip arthroplasties. There is a large amount of stool within the rectum as well as the colon. The findings represent fecal impaction. There is mild infiltration within the lower abdomen and the pelvis. A colitis would be difficult to exclude. There is no pneumatosis, free air or portal venous gas. This extensive atherosclerotic plaque of the abdominal aorta. A few subcentimeter renal lesions likely reflect cysts. IMPRESSION: 1. Findings consistent with fecal impaction. Massive amount of stool within the rectum with large amount of stool within the colon. Minimal adjacent infiltration is nonspecific but could reflect a colitis related to the fecal impaction. 2. Choledocholithiasis and cholelithiasis with moderate biliary ductal dilatation. 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 3. Mild left hydroureteronephrosis of uncertain etiology. 4. Moderate sized hiatal hernia. Electronically signed by: Jason Arzola M.D. 12/14/2016 1:24 PM Dictated Date/Time: 12/14/2016 1:05 PM The status of this report is Signed. Draft = Not yet reviewed or approved by Radiologist. Signed = Reviewed and approved by Radiologist. <AttendingPhy></AttendingPhy> <FamilyPhy>Eugenio Cardenas M.D.</FamilyPhy > <PrimaryPhy>Eugenio Cardenas M.D.</PrimaryPhy> <UnitNumber>[id number]</ UnitNumber> <VisitNumber>[id number]</VisitNumber> <PatientName>KEMI SULTANA</ PatientName> <DateOfBirth>1930</DateOfBirth> <Location>[facility]</Location> < ServiceDate>12/14/16</ServiceDate> <MNE>ESINDI</MNE> <OrderingPhy>Jesus Dangelo MD</OrderingPhy> <OrderingPhyMNE>f rep ord dr moseley</OrderingPhyMNE> < DictatingPhyMNE>f rep dict dr moseley</DictatingPhyMNE> <CCListMNE>f rep ct lorelei</ CCListMNE> <AdmittingPhyMNE>f pt admit dr moseley</AdmittingPhyMNE> <AttendingPhyMNE >f pt attend dr moseley</AttendingPhyMNE> <ConsultingPhyMNE>f pt consult dr moseley</ConsultingPhyMNE> <FamilyPhyMNE>f pt fam dr moseley</FamilyPhyMNE> <OtherPhyMNE>f pt other dr moseley</OtherPhyMNE> < PrimaryPhyMNE>f pt prim care dr moseley</PrimaryPhyMNE> <ReferringPhyMNE>f pt referring dr moseley</ReferringPhyMNE> Impression Assessment and Plan Obstipation/status post manual disimpaction in the ED with resultant increased frequency of loose stool movements--CT findings consistent with a fecal impaction, with a massive amount of stool within the rectum and large amount of stool within the colon. There is adjacent inflammation of the colon noted that could be consistent with a colitis. There is also noted choledocholithiasis and cholelithiasis with moderate biliary ductal dilatation. We will order a HIDA scan with gallbladder ejection fraction. The patient will be kept primarily nothing by mouth except meds. Hypertension/Renal insufficiency/dehydration--place on normal saline at 100 mils per hour, and repeat laboratories in the a.m. Continue diltiazem ER 240 mg by mouth daily. Hold furosemide 40 mg by mouth daily and KCl 20 mEq by mouth daily. Mild left hydroureteronephrosis of uncertain etiology Hypercholesterolemia-- continue pravastatin 20 mg by mouth at bedtime. Hypothyroidism--continue levothyroxine sodium 75 g by mouth daily. GERD--continue pantoprazole but increase to 40 mg by mouth twice a day. Level of Care Med/Surg Advanced Directives Existing Advance Directive: No Existing Living Will: No Existing Power of Matte Cutter: No Resuscitation Status FULL RESUSCITATION VTE Prophylaxis VTE Risk Assessment Done? Y/N: Yes Risk Level: Moderate Given or contraindicated: SCD's
--- NOTE | 2016-12-14 21:53 | DIAGNOSTIC IMAGING REPORT ---
CHEST ONE VIEW PORTABLE CLINICAL HISTORY: crackles, low SATS hypoxia COMPARISON STUDY: 11/27/2016 FINDINGS: Interval development of diffuse bilateral parenchymal infiltrates versus pulmonary edema. Heart is moderately enlarged. Diaphragms smooth. Thoracic aorta is tortuous. IMPRESSION: Interval development of pulmonary edema Electronically signed by: Kirill Escoto M.D. 12/14/2016 9:51 PM Dictated Date/Time: 12/14/2016 9:50 PM
[2016-12-14 22:11] VITALS: BP 129/76; PULSE 98; TEMP 36.6; O2SAT 92; Ht 162.6 cm; Wt 67.1 kg
[2016-12-14] MEDS ORDERED: FUROSEMIDE 40 MG TAB PO ONE (22:30)
--- NOTE | 2016-12-14 22:38 | DIAGNOSTIC IMAGING REPORT ---
Venous Doppler left leg LEFT VENOUS DOPP LOWER EXT UNILAT CLINICAL HISTORY: LLE EDEMA pain. Edema. TECHNIQUE: Venous Doppler COMPARISON STUDY: 10/22/2016 FINDINGS: Acute deep venous thrombosis involving the length the left femoral vein, popliteal vein, posterior tibial veins, as well as peroneal veins. Compressibility is compromised. IMPRESSION: Findings of acute deep venous thrombosis. Electronically signed by: Kirill Esctoo M.D. 12/14/2016 10:37 PM Dictated Date/Time: 12/14/2016 10:35 PM
[2016-12-14] MEDS ORDERED: NURSING VERBAL MED ORDER ONE (23:15)
[2016-12-14 23:57] VITALS: BP 138/78; PULSE 87; TEMP 36.6; O2SAT 92
[2016-12-15] MEDS: HEPARIN 25,000 UNIT/500ML D5W 500 ML IV PRN ×2 (01:07→07:59)
[2016-12-15] MEDS: ACETAMINOPHEN 325 MG TAB PO PRN ×3 (05:56→23:46)
[2016-12-15] MEDS: LEVOTHYROXINE 75 MCG TAB PO SCH (06:07)
[2016-12-15 06:50] VITALS: BP 138/68; PULSE 90; TEMP 36.6; O2SAT 95
[2016-12-15 07:43] LABS: PARTIAL THROMBOPLASTIN RATIO 2.5
[2016-12-15] MEDS ORDERED: POLYETHYLENE (MIRALAX) 17 GM PACK PO SCH (08:00)
[2016-12-15] MEDS ORDERED: SINCALIDE INJ 1.1 MCG in SODIUM CHLORIDE 0.9% 100ML 100 ML IV ONE (09:00)
[2016-12-15] MEDS ORDERED: MoRPHine SULFATE 2 MG/ML CARP ONE (09:22)
[2016-12-15 09:41] LABS: BUN/CREATININE RATIO 13.5 (10-20); CREATININE 1.5 mg/dl (0.60-1.20)
--- NOTE | 2016-12-15 10:08 | DIAGNOSTIC IMAGING REPORT ---
HEPATOBILIARY HIDA IMAGING CLINICAL HISTORY: CHOLELITHIASIS COMPARISON STUDY: CT scan dated 12/14/2016 FINDINGS: The patient was injected with 5 mCi of technetium 99m Choletec. Sequential anterior imaging was performed. Imaging out to 1 hour reveal nonvisualization of the gallbladder. The common bile duct appeared dilated. There was evidence of activity within small bowel. At 1 hour the patient was administered 2 mg of intravenous morphine. Imaging for additional 30 minutes was performed. The gallbladder was nonvisualized. IMPRESSION: 1. Nonvisualization the gallbladder. This suggests cystic duct obstruction. 2. Biliary ductal dilatation. Electronically signed by: Logan Fuller M.D. 12/15/2016 10:06 AM Dictated Date/Time: 12/15/2016 10:03 AM
[2016-12-15] MEDS: CYANOCOBALAMIN 500 MCG TAB (VIT B-12) PO SCH (10:26)
[2016-12-15] MEDS: NYSTATIN SUSP 500,000 U/5 ML UDC PO SCH ×4 (10:27→20:11)
[2016-12-15] MEDS: DOCUSATE SODIUM 100 MG CAP PO SCH ×2 (10:27→20:10)
[2016-12-15] MEDS: CHOLECALCIFEROL 1000 INTER.UNIT TAB PO SCH (10:27)
[2016-12-15] MEDS: MUPIROCIN 2% OINT 22 GM TUBE EXT SCH (10:27)
[2016-12-15] MEDS: PANTOprazole SOD 40 MG TAB PO SCH ×2 (10:27→20:11)
[2016-12-15] MEDS: DILTIAZEM HCL 120 MG EXT REL CAP PO SCH (10:28)
[2016-12-15] MEDS: PSYLLIUM 58.6% PWD PACK S\\F PO SCH (10:28)
[2016-12-15] MEDS ORDERED: FUROSEMIDE 20 MG TAB PO ONE (11:15)
--- NOTE | 2016-12-15 11:56 | Hospitalist Progress Note ---
Hospitalist Progress Note Date of Service Dec 15, 2016. Subjective Pt evaluation today including: conversation w/ patient, physical exam, lab review, conversation w/ systems development consultant (GI, Hematology), review of inpatient medication list Pt has some lower abd pain more on right side today, no RUQ pain, no N/V, no more BMs since yesterday. Abd quite distended. SHe reports no SOB more than usual. She has O2 at home but doesn't use it much. She reports the swelling in her left leg has been off and on for months but maybe has been worse the last few days. No blood in stool, hemoccult here is negative. Hematology reports she cancelled her Heme appt for IV Fe in October due to the fact she was still in SNF at [facility]. Constitutional: No fever Respiratory: No cough, No sputum, No hemoptysis Cardiovascular: No chest pain Abdomen: + pain, + constipation, No nausea, No vomiting, No GI bleeding Skin: + new/changing skin lesions (multiple skin tears) All Other Systems: Reviewed and Negative Objective Vital Signs Date Time Temp Pulse Resp B/P (MAP) Pulse Ox O2 Delivery O2 Flow Rate FiO2 12/15/16 08:00 Nasal Cannula 6.0 12/15/16 06:50 36.6 90 18 138/68 (91) 95 Nasal Cannula 6.0 12/15/16 00:00 Nasal Cannula 6.0 12/14/16 23:57 36.6 87 16 138/78 (98) 92 Nasal Cannula 6.5 12/14/16 22:11 36.6 98 20 129/76 92 Room Air 12/14/16 20:54 90 Non-Rebreather 10.0 12/14/16 20:40 36.6 98 20 129/76 (93) 74 Nasal Cannula 4.0 12/14/16 18:22 36.4 85 19 159/76 (103) 90 Nasal Cannula 2.0 12/14/16 16:34 92 Nasal Cannula 2.0 12/14/16 16:33 92 18 151/82 82 Room Air 12/14/16 13:38 87 12/14/16 13:31 88 20 154/72 95 Room Air 12/14/16 12:10 85 20 167/99 97 Room Air 12/14/16 11:16 93 19 159/93 96 Room Air Physical Exam General Appearance: no apparent distress, + thin Eyes: normal inspection, sclerae normal ENT: hearing grossly normal Neck: trachea midline Respiratory/Chest: no respiratory distress, no accessory muscle use, + crackles (bibasilar) Cardiovascular: regular rate, rhythm, no gallop, + systolic murmur (3/6 at RUSB and second sys murmur with high pitch at apex anmd LLSB), + pertinent finding (2+ pitting edema left leg to knee, no edema RLE) Abdomen: + abnormal bowel sounds (hypoactive), + pertinent finding (quite distended but only minimal tenderness in RLQ without guarding or rebound) Extremities: no calf tenderness, + swelling (as above) Neurologic/Psychiatric: alert, normal mood/affect, oriented x 3 Skin: + pertinent finding (multiple ecchymoses on extremities, skin tears right forearm and left wrist) Laboratory Results Last 24 Hours Test 12/15/16 00:50 12/15/16 05:49 12/15/16 07:17 12/15/16 10:52 Stool Occult Blood NEGATIVE Hemoglobin 8.7 g/dL Hematocrit 27.0 % Sodium Level 138 mmol/L Potassium Level 4.0 mmol/L Chloride Level 102 mmol/L Carbon Dioxide Level 31 mmol/L Anion Gap 5.0 mmol/L Blood Urea Nitrogen 20 mg/dl Creatinine 1.50 mg/dl Est Creatinine Clear Calc Drug Dose 22.3 ml/min Estimated GFR () 35.7 Estimated GFR (Non- 30.8 BUN/Creatinine Ratio 13.5 Random Glucose 101 mg/dl Calcium Level 8.0 mg/dl Activated Partial Thromboplast Time 63.7 SECONDS Partial Thromboplastin Ratio 2.5 Assessment and Plan Pt is an 86 yo female with a 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 She was manually disimpacted in ER successfully. Hemoccult negative, continues to be anemic. Had acute hypoxemic respiratory failure overnight after admission requiring NRB facemask, likely secondary to Pulm edema. Also incidentally noted to have choledocholithiasis on CT scan abd/pel on admission as well as cholelithiasis and mild left hydronephrosis, severe fecal impaction. Her renal function is stable from previous with pedicurist 1.6 and her LFTs are normal. LLE edema found on admission and Doppler confirms Acute DVT LLE Obstipation/Fecal impaction/Abd pain/Sterile colitis/possible choledocholithiasis with dilated CBD-->s/p manual disimpaction in the ED with success but remains with quite distended abdomen--CT findings consistent with a fecal impaction, with a massive amount of stool within the rectum and large amount of stool within the colon. There is adjacent inflammation of the colon noted that could be consistent with a colitis. There is also noted choledocholithiasis and cholelithiasis with moderate biliary ductal dilatation. HIDA confirms cystic duct obstruction. Stones vs mass in CBD? -bowel regimen with IA bisacodyl, Miralax, docusate -GI consultation appreciated to see if needs ERCP--> would be high risk for procedure--> consult Cardiology for preop eval and recommendations -morphine prn pain but cautious as can worsen constipation -with h/o recent GI bleed and severe constipation--> question if has colon CA?-- > would be high risk for colonoscopy as well but will d/w GI Acute LLE DVT, POA/Anemia--> could be provoked by recent hospital stays but also with h/o PEs and nephrotic syndrome putting her at increased risk for recurrence. Hgb 8-9 and slight drop from previous, did not receive any Fe supplementation since last admission 2 months ago. -heparin gtt for now -follow CBC closely given anemia -may need IV Fe -Consult to Heme appreciated for recommendations on anticoagulation moving forward in setting of anemia, recent GI bleeding CKD stage III, Membranous GN/Nephrotic SYndrome, h/o HD and AIN in 2009, Mild left hydroureteronephrosis--received IVFs for pedicurist initiallly but this is her new baseline, developed Pulm edema, dc IVFs. [place] may be from severe constipation? -follow PRP -check UA for protein -consider Nephro consult if worsening -avoid nephrotoxins and renally dose all meds Severe ,Mod MR,Mild MS, HTN,CAD,PAF,h/o cerebellar CVA, acute hypoxemic resp failure secondary to acute on chronic dCHF-->BPs controlled.in regular rhythm here by exam. Not on AC on admission likely due to h/o GI bleeding. But now on heparin gtt for acute DVT. In past AVR has been discussed but thought to not be a great candidate given comorbidities -continue diltiazem,statin -restart po lasix for diuresis given Pulm edema on CXR and acute resp failure -follow lytes -Consult Cardiology for preop management in case of ERCP need -check ECG Hypercholesterolemia-- continue pravastatin 20 mg by mouth at bedtime. Hypothyroidism--continue levothyroxine sodium 75 g by mouth daily. GERD--continue pantoprazole but increase to 40 mg by mouth twice a day. Proph-heparin gtt, PPI Dispo- FUll code PT/OT evals
[2016-12-15] MEDS ORDERED: MoRPHine SULFATE 2 MG/ML CARP IV PRN (12:00)
[2016-12-15 12:46] LABS: HEMATOCRIT 30.6 % (37-47)
--- NOTE | 2016-12-15 13:34 | Oncology Consultation ---
Oncology/Heme Consultation Date of Consultation: Dec 15, 2016. Attending Physician: Therese Serna MD Reason for Consultation: DVT Anemia History of Present Illness Ms. Rivera is an 86 year old woman with a complicated medical history, including AFib, CHF, CKD, and a recent GI bleed. This is her third admission this year. She was admitted 09/22-09/29 for acute respiratory failure and hemoptysis. She was not able to tolerate a bronchoscopy and so was treated empirically with steroids for possible vasculitis. She improved and was discharged on home O2. However, she never had a definitive diagnosis. She was readmitted for hemoptysis and hypoxia a week later, on 10/06. She again was treated with steroids and improved. She was anemic and iron deficient on that visit. She had a positive Hemoccult but refused a colonoscopy at that time. She was discharged 10/13 and was supposed to follow up in our clinic for IV iron. She was seen once but cancelled her iron infusions after being admitted to a SNF. She presents this time with abdominal distention, pain, and constipation. She is uncertain how long it's been since her last BM, but may have been as long as a week. She was previously fairly regular, with BMs every day to every other day on average. She was manually disimpacted in the ER and had a bowel movement following that. However, her abdomen remains distended and firm. A CT revealed massive fecal retention with some questionable areas of colitis versus inflammation from the impaction. She was also noted to have cholelithiasis and choledocholithiasis. HIDA scan revealed evidence of biliary ductal dilatation and a cystic duct obstruction. She had an episode of worsened shortness of breath overnight and had a chest x-ray showing edema. She was given an extra dose of Lasix and is improved this morning. She takes one 20 mg tab daily and takes an extra when she has increased edema. Finally, she had LLE swelling and tenderness and a doppler revealed an extensive acute DVT involving her femoral, popliteal, peroneal, and posterior tibial veins. She is now on a heparin drip. Her breathing is improved this morning and she denies any recent hemoptysis or other gross bleeding. She does note some fatigue, disinterest in eating, and weight loss of late. She denies any acute pain anywhere. Past Medical/Surgical History Medical Problems: (1) Acute kidney injury Status: Acute (2) Anemia Status: Acute (3) Chronic anemia Status: Acute (4) Colitis Status: Acute (5) Elevated troponin Status: Acute (6) Hypoxia Status: Acute Family History Heart disease Social History Smoking Status: Never Smoker Drug Use: none Marital Status: Housing Status: lives alone Occupation Status: retired Allergies Coded Allergies: Doxycycline (Verified Allergy, Intermediate, RASH, 12/15/16) Trimethoprim (Verified Allergy, Intermediate, RASH, 12/15/16) Adhesives (Verified Allergy, Unknown, HAD RXN TO HOLTER MONITOR PATCHES, ) Amoxicillin (Verified Allergy, Unknown, RASH, 12/15/16) Atorvastatin (Verified Allergy, Unknown, UNKNOWN, 12/15/16) Carbamazepine (Verified Allergy, Unknown, 12/14/16) Hydantoins (Verified Allergy, Unknown, 12/14/16) Levofloxacin (Verified Allergy, Unknown, UNKNOWN, 12/15/16) Penicillins (Verified Allergy, Unknown, AMOXIL,HAS TOLERATED CEPHS, 12/15/16 ) has tolerated cefepime and ceftriaxone on previous admissions Phenytoin (Verified Allergy, Unknown, 12/14/16) Sulfamethoxazole w/Trimethoprim (Unverified Allergy, Unknown, VASCULITIS, 12/14/16) Home Medications Scheduled Cholecalciferol (Vitamin D3), 1 TAB PO DAILY Cyanocobalamin (Vitamin B-12), 1,000 MCG PO DAILY Diltiazem Hcl Ext Rel (Tiazac), 240 MG PO DAILY Docusate Sodium (Docusate Sodium), 100 MG PO DAILY Furosemide (Lasix), 40 MG PO DAILY Levothyroxine Sodium (Synthroid), 75 MCG PO DAILY Mupirocin 2% (Bactroban 2%), 1 APPLN EXT UD Nystatin (Nystatin Suspension), 5 ML PO QID Oxygen (Oxygen), 2 LITERS NA PRN Pantoprazole (Protonix), 20 MG PO BID Potassium Chloride (Klor-Con M20), 20 MEQ PO DAILY Pravastatin (Pravachol ), 20 MG PO HS Psyllium (Metamucil), 2 PIECE PO DAILY Miscellaneous Medications Prednisone Tab (Prednisone), 10 MG PO Current Inpatient Medications Current Inpatient Medications Medications (Trade) Dose Ordered Sig/Phillip Route Start Time Stop Time Status Last Admin Dose Admin Ioversol (Optiray 320) 125 ml UD PRN IV 12/14/16 10:15 12/18/16 10:14 Acetaminophen (Tylenol Tab) 650 mg Q4H PRN PO 12/14/16 17:00 01/13/17 16:59 12/15/16 11:52 650 MG Cholecalciferol (Vitamin D Tab) 2,000 inter.unit DAILY PO 12/15/16 08:00 01/14/17 08:59 12/15/16 10:27 2,000 INTER.UNIT Cyanocobalamin (Vitamin B-12 Tab) 1,000 mcg DAILY PO 12/15/16 08:00 01/14/17 08:59 12/15/16 10:26 1,000 MCG Diltiazem HCl (TIAzac CAP) 240 mg DAILY PO 12/15/16 08:00 01/14/17 08:59 12/15/16 10:28 240 MG Docusate Sodium (coLACE CAP) 100 mg BID PO 12/14/16 20:00 01/13/17 20:59 12/15/16 10:27 100 MG Levothyroxine Sodium (Synthroid Tab) 75 mcg DAILYBB PO 12/15/16 06:30 01/14/17 06:29 12/15/16 06:07 75 MCG Nystatin (Mycostatin Susp) 5 ml QID PO 12/14/16 19:00 12/24/16 18:59 12/15/16 10:27 5 ML Pravastatin Sodium (Pravachol Tab) 20 mg HS PO 12/14/16 21:00 01/13/17 20:59 12/14/16 19:34 20 MG Prednisone (PredniSONE TAB) 20 mg QAM PO 12/15/16 08:00 01/14/17 08:59 12/15/16 10:26 20 MG Mupirocin (Bactroban 2% Oint) 1 appln DAILY EXT 12/15/16 08:00 01/14/17 07:59 12/15/16 10:27 1 APPLN Psyllium Hydrophilic Mucilloid (Metamucil Powder) 1 pkt DAILY PO 12/15/16 08:00 01/14/17 08:59 12/15/16 10:28 1 PKT Pantoprazole Sodium (Protonix Tab) 40 mg BID PO 12/14/16 20:00 01/13/17 20:59 12/15/16 10:27 40 MG Sodium Chloride 1,000 ml @ 100 mls/hr Q10H IV 12/14/16 17:00 01/13/17 16:59 Future Hold 12/14/16 19:23 100 MLS/HR Bisacodyl (Dulcolax Supp) 10 mg DAILY PRN IL 12/14/16 17:00 01/13/17 16:59 Heparin Sodium/ Dextrose 500 ml @ 20 mls/hr Q24H PRN IV 12/15/16 01:00 01/14/17 00:59 12/15/16 07:59 20 MLS/HR Furosemide (Lasix Tab) 20 mg QAM PO 12/16/16 08:00 01/15/17 07:59 Polyethylene (Miralax Powder Packet) 17 gm BID PO 12/15/16 20:00 01/14/17 08:59 Morphine Sulfate (MoRPHine SULFATE INJ) 2 mg Q4H PRN IV 12/15/16 12:00 12/29/16 11:59 Review of Systems Constitutional: + weight loss, No fever ENT: No unusual epistaxis Respiratory: + shortness of breath, No cough, No hemoptysis Cardiovascular: No chest pain Abdomen: + constipation, No pain Musculoskeletal: + swelling, + calf pain, No joint pain, No muscle pain Genitourinary - Female: No dysuria, No hematuria Hematologic / Lymphatic: No abnormal bleeding/bruising, No night sweats Physical Exam Date Time Temp Pulse Resp B/P (MAP) Pulse Ox O2 Delivery O2 Flow Rate FiO2 12/15/16 08:00 Nasal Cannula 6.0 12/15/16 06:50 36.6 90 18 138/68 (91) 95 Nasal Cannula 6.0 12/15/16 00:00 Nasal Cannula 6.0 12/14/16 23:57 36.6 87 16 138/78 (98) 92 Nasal Cannula 6.5 12/14/16 22:11 36.6 98 20 129/76 92 Room Air 12/14/16 20:54 90 Non-Rebreather 10.0 12/14/16 20:40 36.6 98 20 129/76 (93) 74 Nasal Cannula 4.0 12/14/16 18:22 36.4 85 19 159/76 (103) 90 Nasal Cannula 2.0 12/14/16 16:34 92 Nasal Cannula 2.0 12/14/16 16:33 92 18 151/82 82 Room Air 12/14/16 13:38 87 12/14/16 13:31 88 20 154/72 95 Room Air General Appearance: no apparent distress, + thin, + pertinent finding (ill- appearing elderly woman) Eyes: sclerae normal (anicteric) Respiratory/Chest: chest non-tender, + pertinent finding (fine crackles at bases) Cardiovascular: regular rate, rhythm Abdomen/GI: non tender, + distended (firm) Extremities/Musculoskelatal: + pedal edema (LLE, 2+ to knee) Neurologic/Psych: alert, oriented x 3 Skin: no rash Laboratory Results Last 24 Hours Test 12/15/16 00:50 12/15/16 05:49 12/15/16 07:17 12/15/16 12:39 Stool Occult Blood NEGATIVE Hemoglobin 8.7 g/dL 9.6 g/dL Hematocrit 27.0 % 30.6 % Sodium Level 138 mmol/L Potassium Level 4.0 mmol/L Chloride Level 102 mmol/L Carbon Dioxide Level 31 mmol/L Anion Gap 5.0 mmol/L Blood Urea Nitrogen 20 mg/dl Creatinine 1.50 mg/dl Est Creatinine Clear Calc Drug Dose 22.3 ml/min Estimated GFR () 35.7 Estimated GFR (Non- 30.8 BUN/Creatinine Ratio 13.5 Random Glucose 101 mg/dl Calcium Level 8.0 mg/dl Thyroid Stimulating Hormone (TSH) 6.940 uIu/ml Activated Partial Thromboplast Time 63.7 SECONDS Partial Thromboplastin Ratio 2.5 Assessment & Plan Ms. Rivera is ill and her situation is complicated. She has multiple issues that may be related or merely additive. With regard to her DVT, she does not appear to be grossly bleeding anywhere and her hemoglobin is stable. I would keep her on the heparin until she has a hard indication to come off, in which case I would place a retrievable IVC filter. With regard to her anemia, she is iron deficient from a likely GI source, given her positive occult blood testing in the past. She refused a colonoscopy at her last visit. In light of her bowel changes, GI bleeding, and constitutional symptoms, I would strongly consider a colonoscopy at this time. She will also need an ERCP for her biliary issues and may have a cancer there instead. She might benefit from a cardiac standpoint from a higher hemoglobin, but I would be very reticent to transfuse her given her tenuous volume status. IV iron will eventually improve her counts, but not over the timeline of this hospital stay. Thus, I'm not sure IV iron is necessary at this point. I will continue to follow for now.
[2016-12-15 15:32] VITALS: BP 137/74; PULSE 79; TEMP 36.4; O2SAT 96
[2016-12-15 16:00] VITALS: O2SAT 96
--- NOTE | 2016-12-15 16:45 | Pulmonary Consultation ---
History General Date of Service: Dec 15, 2016. Stated Complaint: Coliltis, Obstipation, hypoxia HPI The patient is a 86 year old female who presents to [facility] with complaints of Coliltis, Obstipation. The patient's primary care provider is Eugenio Cardenas M.D.. The patient is an 86 y/o female year old presenting to the [facility] ER with abdominal pain/distention with constipation. The patient has a PmHx significant for A-fib, CHF, CKD, and GIB. This is our patients third admission to [facility] this year. 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 She was noted to be anemic with a GIB during her second via Hem cult testing but refused colonoscopy. The patients work-up is significant for sever fecal impaction via CT of the abdomen (s/p manual disimpaction), possible areas of colitis and cholelithiasis and choledocholithiasis. A HIDA scan noted biliary ductal dilatation and a cystic duct obstruction. The patient then noted increasing dyspnea last night with mild improvement after dieresis. On physical exam the patient was also noted to have LLE pain and edema with Doppler exams revealing an extensive proximal DVT for which she was started on a heparin gtt. conversation the patient denied any shortness of breath. She also denies any shortness of breath since her last discharge and she is currently not using her home oxygen. Her son verified this. She was not complaining of progressive shortness of breath, cough, fever, chills, hemoptysis , pleurisy R classic cardiac chest pain prior to her admission and/or at this time. She does continue to note lower abdominal discomfort. Current Work-Up: WBC: 10K (Neuto # 6.63) H/H: 05/11 PLT: 157K aPTT: 63.7 BUN/Cr: 20/1.50 TSH: 6.940 Hem-Cult: negative Pending: MICHELLE, Anit-Proteinase, Anti-Myeloperoxidase, ANCA, GBM ab EKG: WNL CXR: diffuse intra-parenchymal changes with hilar fullness Doppler LLL: large proximal DVT HIDA: biliary ductal dilation CT ABD: fecal impaction, possible inflammation vs. colitis, choledocolithitasis , hydroureteronephrosis Previous Work-Up: CBC reviewed no signs of schistocytes from 09/25/2016 ProBNP 09/23/16: 16,740 C-reactive protein 09/23/2016: 9.21 C-reactive protein 11/09/2007: 5.5 Total complement 07/04/2008: 38(within normal limits) 07/13/2008 Anticardiolipin antibody IgG: Elevated 27 07/13/2008 Anticardiolipin antibody IgA: Within normal limits 13 07/13/2008 Anticardiolipin IgM antibody: Elevated 74 06/12/2014 C3: Low 64 06/12/2014 C4: Within normal limits 18 MICHELLE screen: homogenous(diffuse) pattern Radiology: Upper extremity venous Dopplers 09/23/2016 No signs of DVT superficial phlebitis noted Lower extremity DVTs: 09/23/2016 No evidence of acute deep venous thrombosis bilaterally Superficial veins of the left popliteal fossa suggestive of superficial thrombophlebitis Bilateral small popliteal cyst Review of Systems Constitutional: reports: weakness Eyes: reports: no symptoms ENT: reports: no symptoms Cardiovascular: reports: no symptoms Respiratory: reports: as stated in HPI Gastrointestinal: reports: abdominal pain, constipation Genitourinary - Female: reports: no symptoms Musculoskeletal: reports: myalgias Integumentary: reports: no symptoms Neurologic: reports: no symptoms Psychiatric: reports: anxiety Endocrine: no symptoms Hematologic / Lymphatic: no symptoms Allergic / Immunologic: no symptoms Past Medical History Past Medical History: (1) Sever Aortic Stenosis (2) Atrial Fibrillation (3) Chronic Kidney Disease baseline creatinine 1.1 (4) Congestive Heart Failure Nos (5) Coronary Atherosclerosis Of [place] Coronary Vessel (6) Hypertension (7) Nephrotic Syndrome/CKD III possibly due to Dilantin use with previous HD treatments No bx secondary to anti-coagulation/[id number]/2009 (8) Osteoporosis Nos (9) CVA vs. 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 Past Surgical History: (1) bilat hip arthroplasty Family History Heart disease Heart disease Social History Smoking Status: Never Smoker Marital Status: Housing Status: lives alone Occupation Status: retired Hx Tobacco Use In Past Year?: No Smoking Status: Never Smoker Marital status: Occupational Status: retired Hx Tobacco Use In Past Year?: No Smoking Status: Never Smoker Marital status: Housing status: lives with family Occupational Status: retired Immunizations History of Influenza Vaccine: Yes History of Tetanus Vaccine?: Unknown History of Pneumococcal: Yes History of Hepatitis B Vaccine: Unknown History of MDRO History of MDRO: No Allergies Coded Allergies: Doxycycline (Verified Allergy, Intermediate, RASH, 12/15/16) Trimethoprim (Verified Allergy, Intermediate, RASH, 12/15/16) Adhesives (Verified Allergy, Unknown, HAD RXN TO HOLTER MONITOR PATCHES, ) Amoxicillin (Verified Allergy, Unknown, RASH, 12/15/16) Atorvastatin (Verified Allergy, Unknown, UNKNOWN, 12/15/16) Carbamazepine (Verified Allergy, Unknown, 12/14/16) Hydantoins (Verified Allergy, Unknown, 12/14/16) Levofloxacin (Verified Allergy, Unknown, UNKNOWN, 12/15/16) Penicillins (Verified Allergy, Unknown, AMOXIL,HAS TOLERATED CEPHS, 12/15/16 ) has tolerated cefepime and ceftriaxone on previous admissions Phenytoin (Verified Allergy, Unknown, 12/14/16) Sulfamethoxazole w/Trimethoprim (Unverified Allergy, Unknown, VASCULITIS, 12/14/16) Current Medications Reported Home Medications Medications Dose Route/Sig Max Daily Dose Days Date Category Prednisone 10 Mg Tab 10 Mg PO 12/14/16 Reported Klor-Con M20 (Potassium Chloride) 20 Meq Tabcr 20 Meq PO DAILY 12/14/16 Reported Nystatin Suspension (Nystatin) 1 Ml Susp 5 Ml PO QID 12/14/16 Reported Bactroban 2% (Mupirocin) 30 Gm Cr 1 Appln EXT UD 12/14/16 Reported Metamucil (Psyllium) 1 Waf Waf 2 Piece PO DAILY 12/14/16 Reported Lasix (Furosemide) 20 Mg Tab 40 Mg PO DAILY 12/14/16 Reported Docusate Sodium 100 Mg Cap 100 Mg PO DAILY 12/14/16 Reported Pravachol (Pravastatin Sodium) 20 Mg Tab 20 Mg PO HS 10/06/16 Reported Oxygen Gas 2 Liters NA PRN 365 09/29/16 Rx Vitamin D3 (Cholecalciferol) 1,000 Unit Tab 1 Tab PO DAILY 30 09/22/16 Reported Synthroid (Levothyroxine Sodium) 75 Mcg Tab 75 Mcg PO DAILY 09/22/16 Reported Vitamin B-12 (Cyanocobalamin) 1,000 Mcg Tab 1,000 Mcg PO DAILY 09/22/16 Reported Protonix (Pantoprazole Sodium) 20 Mg Tab 20 Mg PO BID 09/22/16 Reported Tiazac (Diltiazem HCl) 240 Mg Capcr 240 Mg PO DAILY 06/12/14 Reported Physical Physical Exam Vital Signs: Date Time Temp Pulse Resp B/P (MAP) Pulse Ox O2 Delivery O2 Flow Rate FiO2 12/15/16 15:32 36.4 79 20 137/74 (95) 96 Nasal Cannula 6.0 12/15/16 08:00 Nasal Cannula 6.0 12/15/16 06:50 36.6 90 18 138/68 (91) 95 Nasal Cannula 6.0 12/15/16 00:00 Nasal Cannula 6.0 12/14/16 23:57 36.6 87 16 138/78 (98) 92 Nasal Cannula 6.5 12/14/16 22:11 36.6 98 20 129/76 92 Room Air 12/14/16 20:54 90 Non-Rebreather 10.0 12/14/16 20:40 36.6 98 20 129/76 (93) 74 Nasal Cannula 4.0 12/14/16 18:22 36.4 85 19 159/76 (103) 90 Nasal Cannula 2.0 General Appearance: WELL-APPEARING, NO APPARENT DISTRESS Head: NORMOCEPHALIC, ATRAUMATIC Eyes: PERRLA, NO DISCHARGE, EOMI, SCLERAE NORMAL ENT: NORMAL EAR EXAM, NORMAL NASAL EXAM, NORMAL MOUTH EXAM, NORMAL THROAT EXAM Neck: NORMAL RANGE OF MOTION, NO TENDERNESS, TRACHEA MIDLINE, NO STRIDOR Respiratory: other (crackles bilaterally especially at the bases) Cardiovasular: other (S1 and S2 distant heart sounds but able to auscultate for holosystolic murmur best appreciated at the right upper sternal border) Abdomen: other (bloated with tenderness noted on deep palpation of the subcutaneous inguinal region no rebound tenderness noted) Genitourinary - Female: EXTERNAL GENITALIA NORMAL Back: NORMAL INSPECTION, NO MIDLINE TENDERNESS, NO CVA TENDERNESS, NO PARAVERTEBRAL TTP Upper Extremities: NO EDEMA, NO DEFORMITY, NORMAL ROM Lower Extremities: other (left lower extremity 3+ pitting edema) Pulses: carotid (R) (1+), carotid (L) (1+), dorsalis pedis (R) (1+), dorsalis pedis (L) (0) Neuro: ALERT, ORIENTED x 3, NORMAL MOTOR EXAM, NORMAL SENSATION Reflexes: biceps (R) (2+), bicpes (L) (2+) Babinski Testing: right (downgoing), left (equivocal) Psychiatric: NORMAL AFFECT Diagnostics Labs Results Past 24 Hours Test 12/15/16 00:50 12/15/16 05:49 12/15/16 07:17 12/15/16 12:39 Range/Units Stool Occult Blood NEGATIVE NEGATIVE Hemoglobin 8.7 9.6 12.0-16.0 g/dL Hematocrit 27.0 30.6 37-47 % Sodium Level 138 136-145 mmol/L Potassium Level 4.0 3.5-5.1 mmol/L Chloride Level 102 98-107 mmol/L Carbon Dioxide Level 31 21-32 mmol/L Anion Gap 5.0 3-11 mmol/L Blood Urea Nitrogen 20 7-18 mg/dl Creatinine 1.50 0.60-1.20 mg/dl Est Creatinine Clear Calc Drug Dose 22.3 ml/min Estimated GFR () 35.7 Estimated GFR (Non- 30.8 BUN/Creatinine Ratio 13.5 10-20 Random Glucose 101 70-99 mg/dl Calcium Level 8.0 8.5-10.1 mg/dl Thyroid Stimulating Hormone (TSH) 6.940 0.300-4.500 uIu/ml Activated Partial Thromboplast Time 63.7 21.0-31.0 SECONDS Partial Thromboplastin Ratio 2.5 Diagnostic Radiology CXR: diffuse intra-parenchymal changes with hilar fullness Doppler LLL: large proximal DVT HIDA: biliary ductal dilation CT ABD: fecal impaction, possible inflammation vs. colitis, choledocolithitasis , hydroureteronephrosis EKG Interpretation: NORMAL EKG Impression Assessment and Plan 78-year-old female admitted for fecal impaction with acute on chronic hypoxia: #1 Hypoxia: Hypoxia is most likely combination of patient's deconditioning and aortic stenosis. At home she is having no signs of progressive or continuous hypoxia not requiring her oxygen. Chest x-ray does show diffuse findings possibly consistent with aortic stenosis induced flash pulmonary edema. At this time I would continue oxygen support and gently diuresis the patient's creatinine is notably at elevated at 1.5. I do not believe the patient is showing signs of acute vasculitis flare if she is having no hemoptysis or signs consistent with previous exacerbations. We'll hold off on steroids I also believe bronchoscopy is warranted at this time for evaluation of possible diffuse alveolar hemorrhage. #2 DVT: Patient has a large proximal DVT noted along the left lower extremity. I agree with initiating anticoagulation at this time and monitoring the patient for possible active bleeding. Also believe that if the patient does show signs of active bleeding she will require an IVC filter placement at that time to decrease the risk of pulmonary embolism.
[2016-12-15 18:46] VITALS: O2SAT 97
[2016-12-15] MEDS: PRAVASTATIN SOD 20 MG TAB PO SCH (20:11)
[2016-12-15] MEDS: POLYETHYLENE (MIRALAX) 17 GM PACK PO SCH (20:11)
--- NOTE | 2016-12-15 20:53 | GASTROINTESTINAL CONSULTATION ---
DATE OF CONSULTATION: 12/15/2016 REQUESTING PHYSICIAN: Dr. Serna. CHIEF COMPLAINT: Abnormal CT imaging, common bile duct stones, constipation, anemia, and DVT. HISTORY OF PRESENT ILLNESS: Mrs. Rivera is an 86-year-old white female who presents to the Emergency Room with constipation. She had attempted some home remedies; however, these were ineffective. She had a recent hospitalization for anemia. The patient denies currently any melena or bright red blood per rectum and does not report any prior history of liver disease, gallbladder symptoms, biliary colic, jaundice or known changes in the hepatobiliary system. PAST MEDICAL HISTORY: Extensive including aortic valve disease with aortic stenosis, atrial fibrillation, chronic kidney disease, CHF, hypertension, nephrotic syndrome, osteoporosis, Tietze syndrome and history of a TIA and cerebral infarction. FAMILY HISTORY: Significant for heart disease. There is no history of colorectal cancer. SOCIAL HISTORY: The patient denies tobacco or alcohol usage. She is , lives with her family and is retired. ALLERGIES: SHE HAS ALLERGIES TO DOXYCYCLINE, TRIMETHOPRIM, AMOXICILLIN, ATORVASTATIN, CARBAMAZEPINE, HYDANTOINS, LEVOFLOXACIN, PENICILLIN AND PHENYTOIN. HOME MEDICATIONS: Include Metamucil, pravastatin, pantoprazole, Nystatin, levothyroxine, Lasix, Colace, diltiazem, B12 and vitamin D3. REVIEW OF SYSTEMS: Otherwise noncontributory based on 14-point exam. The patient denies any chest pain, shortness of breath, palpitations, gastrointestinal hemorrhage, nausea, vomiting, although she does report some sense of fullness and bloating and she is constipated. Extremities - she denies any leg pain or rashes. PHYSICAL EXAMINATION: VITAL SIGNS: Today on admission 12/14/2016: She is afebrile 36.7, blood pressure 139/76, 98% on room air, heart rate 88, respirations 18. On vital signs at this time, the patient is afebrile at 36.4, blood pressure 137/74, 96% on 6 liters, 79 heart rate, and respirations 20. GENERAL: The patient is awake, and oriented. I spoke with the patient's son by phone at the same time while discussing findings and some potential recommendations at this time. The patient is also accompanied by her copper flotation operator. HEENT: The oral mucosa is moist. Sclerae are anicteric. NECK: There is no cervical or supraclavicular adenopathy. I do not appreciate thyromegaly. HEART: Normal S1, S2 with a systolic ejection murmur on the right sternal border. LUNGS: Overall, clear to auscultation and decreased breath sounds at bases may be due to effort. ABDOMEN: Distended without overt tympany. There is no rebound or guarding. By the patient's history, this body habitus is clearly different for her. EXTREMITIES: Without clubbing, cyanosis. There is trace edema. LABORATORY STUDIES: Include white count 9.7, hemoglobin 9.7, MCV 96, platelets are 157,000. BUN and creatinine are 21 and 1.6, potassium 3.5. Calcium 8.3, ALT 21, AST 20, alkaline phosphatase 80, albumin 3.5, lipase 249. Her TSH today is 6.94. Stools are negative for occult blood. Her INR is not tested, although her PTT is elevated at 63.7 (she is on a heparin drip for newly diagnosed left leg DVT). IMAGING STUDIES: CT scan on December 14 reveals fecal impaction, massive amount of stool within the rectum and large amount throughout the colon, there is evidence of choledocholithiasis, cholelithiasis and moderate biliary ductal dilatation with a duodenal diverticula in the second portion. There is a moderate size hiatal hernia. Densities are seen in the distal common bile duct of 1.3 cm. Pancreatic duct is not dilated, spleen and adrenals are normal. Lower extremity ultrasound showed acute deep venous thrombosis of the left lower extremity. HIDA scan today showed nonvisualization of the gallbladder, suggesting cystic duct obstruction. There is evidence of biliary ductal dilation. Laboratory studies showed normal LFTs, despite CT findings. IMPRESSION: The patient was recently discharged and a gastrointestinal consultation on October [address] Patterson. The patient at that time was heme positive stools with significant anemia and shortness of breath and had received blood transfusions. PLAN AND RECOMMENDATIONS: I made the following recommendations: Based on the findings above, I believe the initial effort should be to treat and stabilize her DVT and to continue with a bowel preparation that would help evacuate the colon. She does not recall ever having had a colonoscopy in the past and certainly with her prior anemia and these obstipated features, ultimately a colonoscopy may be prudent, although understandably she and her son are concerned about her comorbidities and her ability to tolerate endoscopic exams. This would still require some degree of bowel preparation to perform. Regarding the dilated bile duct, choledocholithiasis and gallstones, there is no evidence for filling of the gallbladder and may suggest the component of cystic duct obstruction, presumably due to gallbladder stones or sludge. However, clinically, the patient does not appear to have acute cholecystitis, cholangitis and/or a component of bile duct obstruction. Therefore, the decision for ERCP is difficult, although clearly she is at risk for developing cholangitis and/or gallstone pancreatitis in the future. Will discuss the case with Dr. Serna and would work over the next 24 hours to achieve colonic cleansing. Initially, would try agents such as Fleet's enemas and ultimately would begin a bowel preparation with GoLYTELY, after several rounds of enemas provided continued evacuation. With her hemoglobin needs to be observed as well as her stool for blood, particularly in light of her anticoagulation with heparin and her prior history of heme positive stools and anemia. We will follow with you. All questions answered to their satisfaction. MARIAELENA
[2016-12-15 22:09] VITALS: O2SAT 93
[2016-12-15 23:22] VITALS: BP 137/82; PULSE 72; TEMP 36.9; O2SAT 92
--- NOTE | 2016-12-15 23:46 | CARDIOLOGY CONSULTATION ---
DATE OF CONSULTATION: 12/15/2016 CONSULTATION REQUESTED BY: Dr. Serna. REASON FOR CONSULTATION: History of severe aortic stenosis, heart failure with preserved ejection fraction. HISTORY OF PRESENT ILLNESS: Ms. Rivera is a very pleasant 86-year-old woman, with a complex past medical history and known to me from the outpatient setting in prior hospitalizations, whom we are asked to see regarding further management of her known severe aortic stenosis and heart failure with preserved ejection fraction. Her active recent medical issues include 2 recent hospitalizations for possible diffuse alveolar hemorrhage, history of membranous nephropathy with chronic renal insufficiency, prior pulmonary embolism, questionable history of atrial fibrillation. The patient was last admitted in early October, again in the setting of questionable diffuse alveolar hemorrhage, acute onset of anemia and questionable heart failure. She has been treated for diffuse alveolar hemorrhage since that time with p.o. steroids. She was treated with transfusion during that hospitalization and colonoscopy was considered, but was deferred due to patient's multiple comorbidities. Since that time, overall, she has been doing reasonably well. She denies significant shortness of breath at home and denies any chest pain or recurrent signs of heart failure. She presented to the Emergency Department yesterday in the setting of severe constipation and not able to have bowel movements for the last 4-5 days. She had a CT scan, which showed severe fecal impaction/obstipation for which she underwent partial manual disimpaction. CT scan also revealed questionable cholelithiasis. She underwent a HIDA scan, which showed questionable bile duct obstruction and GI has been consulted for question of ERCP. During her hospitalization, she did have an acute episode of shortness of breath last night and has been restarted on her home diuretics. She is down to 1-2 liters of supplemental oxygen, currently. At present, patient states that she feels near her recent baseline, except for her continued diffuse abdominal discomfort and inability to have further bowel movements. PAST MEDICAL HISTORY: 1. Severe aortic stenosis. 2. Hypertension. 3. Dyslipidemia. 4. 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 5. Questionable history of atrial fibrillation. 6. Prior pulmonary embolism. 7. Carotid artery disease. 8. Chronic diastolic heart failure. 9. Prior TIA. 10. Osteoporosis. FAMILY HISTORY: Noncontributory due to patient's age and other medical issues. SOCIAL HISTORY: She is . She lives with her family. She previously worked at [employer]. She is a lifelong nonsmoker. She denies any significant alcohol or illicit drug use. ALLERGIES: NOTABLE FOR DOXYCYCLINE, TRIMETHOPRIM, ADHESIVES, ATORVASTATIN, LEVOFLOXACIN, PENICILLINS, AND PHENYTOIN. HOME MEDICATIONS: Include diltiazem, docusate, furosemide 20, levothyroxine, lisinopril 20, pantoprazole, pravastatin, potassium chloride, prednisone 10 and vitamin B12. REVIEW OF SYSTEMS: Ten-point review of systems was completed and otherwise negative, unless stated in the HPI. PHYSICAL EXAMINATION: VITAL SIGNS: Temperature 36.4, pulse 79, blood pressure 137/74, satting 97% on 2.5 liters nasal cannula. GENERAL: The patient appears comfortable, in no acute distress. HEENT: Sclerae are anicteric. Oropharynx is clear. Mucous membranes are moist. NECK: Supple. She has no lymphadenopathy. She has jugular venous distention to approximately 8 mmHg. LUNGS: She has some crackles at her bases bilaterally. CARDIAC: She has a 2/6 systolic ejection murmur, heard best at the right upper sternal border. She has a preserved A2. She is regular. ABDOMEN: Diffusely distended and tender diffusely. She has diminished bowel sounds. EXTREMITIES: Warm; left lower extremity is significantly swollen up to the level of the hip. SKIN: Shows diffuse ecchymosis and occasional skin tears. NEUROLOGIC: Grossly nonfocal. PSYCHIATRIC: She is oriented x3 and her mood and affect is appropriate. LABORATORY DATA: White blood cell count 9.7, hemoglobin of 9.7, platelets of 157. PTT of 63. Sodium 138, potassium 4.0, BUN of 20, creatinine of 1.5. TSH was elevated at 6.9, lipase of 249. LFTs within normal limits. IMAGING: HIDA scan showed non-visualized gallbladder with a suggestion of cystic duct obstruction. Chest x-ray yesterday showed interval development of pulmonary edema. Lower extremity ultrasound showed findings of acute DVT involving the length of the left femoral vein, popliteal vein and posterior tibial veins as well as peroneal veins and CT scan of the abdomen showed fecal impaction with massive amounts of stool and nonspecific signs of colitis, choledocholithiasis and cholelithiasis. EKG shows sinus rhythm with LVH. Prior echocardiogram on 09/15/2016 showed preserved LV function with an EF of 55%-60%. There was moderate mitral regurgitation, mild mitral stenosis and severe aortic valve stenosis with a peak velocity of 4.36, a mean gradient of 50, aortic valve area 0.73. IMPRESSION AND PLAN: 1. Severe aortic stenosis, symptomatic. 2. Afmrn-[id number] heart failure with preserved ejection fraction. 3. Questionable diffuse alveolar hemorrhage. 4. Acute deep venous thrombosis. 5. Chronic kidney disease. 6. Obstipation/fecal impaction. 7. Recurrent anemia. The patient here with acute episode of fecal impaction and obstipation, found to have other GI issues, including choledocholithiasis and questionable cystic duct obstruction. From a cardiac standpoint, at present, she appears well perfused and has only mild congestion, on exam, and oxygen requirement is dropping. From a heart failure management standpoint, going forward, would continue on current p.o. diuretics, with plan to increase to 40 mg daily, if persistent congestion. From a perioperative cardiac risk assessment standpoint, the patient will be at elevated risk for any procedure in the setting of her severe valvular heart disease. However, I do not feel that this risk is prohibitive and if endoscopy was necessary, I feel that that risk of the procedure would be potentially acceptable. To that end, prior to any procedure, would need to optimize filling pressures and hemodynamics; would require close monitoring with anesthesiology and avoidance of systemic vasodilatiors as possible. Otherwise, I agree with current anticoagulation for large DVT. Would like to discontinue negative inotrope verapamil with but with patients atrial fibrillation, feel this may be the best option at present. Unlikely to tolerate tachyarrhythmia and limited options for antiarrhythmic therapy. We will continue to follow the patient while in the hospital. Thank you for allowing us to participate in the care of this patient. MARIAELENA
[2016-12-16] VITALS: O2SAT 91
[2016-12-16] MEDS: HEPARIN 25,000 UNIT/500ML D5W 500 ML IV PRN ×3 (01:58→19:20)
[2016-12-16] MEDS: LEVOTHYROXINE 75 MCG TAB PO SCH (05:44)
[2016-12-16 06:05] LABS: BASO % 0.2 %; BASO ABS # 0.02 K/uL (0-0.2); HEMATOCRIT 27.2 % (37-47); IG% 0.8 %; LYMPH % 29.1 %; LYMPH ABS # 3.05 K/uL (1.2-3.4); MEAN CELL VOLUME 93.2 fL (80-100); MEAN CORPUSCULAR HEMOGLOBIN 30.1 pg (25-34); MEAN CORPUSCULAR HGB CONC 32.4 g/dl (32-36); MEAN PLATELET VOLUME 8.5 fL (7.4-10.4); MONO % 5.4 %; NEUT % 64.5 %; PLATELET COUNT 165 K/uL (130-400); RED BLOOD COUNT 2.92 M/uL (4.2-5.4); WHITE BLOOD COUNT 10.47 K/uL (4.8-10.8)
[2016-12-16 06:31] LABS: ACANTHOCYTES 1+; COMPLETE YES; ECHINOCYTES 1+; POLYCHROMASIA 1+
[2016-12-16 06:32] LABS: BUN/CREATININE RATIO 15.8 (10-20); CALCIUM 8.1 mg/dl (8.5-10.1); CREATININE 1.6 mg/dl (0.60-1.20); MAGNESIUM 2.8 mg/dl (1.8-2.4); POTASSIUM 4.5 mmol/L (3.5-5.1)
[2016-12-16 06:42] LABS: PARTIAL THROMBOPLASTIN RATIO > 11.0
[2016-12-16 07:22] VITALS: BP 143/85; PULSE 72; TEMP 36.7; O2SAT 91
[2016-12-16] MEDS: PANTOprazole SOD 40 MG TAB PO SCH ×2 (07:28→21:11)
[2016-12-16] MEDS: POLYETHYLENE (MIRALAX) 17 GM PACK PO SCH (07:28)
[2016-12-16] MEDS: DOCUSATE SODIUM 100 MG CAP PO SCH ×2 (07:29→21:11)
[2016-12-16] MEDS: PSYLLIUM 58.6% PWD PACK S\\F PO SCH (07:29)
[2016-12-16] MEDS: DILTIAZEM HCL 120 MG EXT REL CAP PO SCH (07:29)
[2016-12-16] MEDS: CHOLECALCIFEROL 1000 INTER.UNIT TAB PO SCH (07:29)
[2016-12-16] MEDS: NYSTATIN SUSP 500,000 U/5 ML UDC PO SCH ×4 (07:29→21:11)
[2016-12-16] MEDS: FUROSEMIDE 20 MG TAB PO SCH (07:29)
[2016-12-16] MEDS: MUPIROCIN 2% OINT 22 GM TUBE EXT SCH (07:29)
[2016-12-16] MEDS: CYANOCOBALAMIN 500 MCG TAB (VIT B-12) PO SCH (07:29)
[2016-12-16 07:48] LABS: PARTIAL THROMBOPLASTIN RATIO > 11.0
[2016-12-16 09:36] LABS: PARTIAL THROMBOPLASTIN RATIO 3.7
[2016-12-16 11:37] VITALS: O2SAT 99
--- NOTE | 2016-12-16 11:48 | Clinical Documentation Query ---
BRANNON James : CLINICAL DOCUMENTATION QUERY Progress note included mention of "acute hypoxemic respiratory failure overnight after admission requiring NRB facemask, likely secondary to Pulm edema" and acute hypoxemic resp failure secondary to acute on chronic dCHF". This lattermost acronym is not a hospital approved abbreviation and as such, our coding professionals cannot capture this important clinical diagnosis. As appropriate, consider documentation as suggested below. Thank you. In your clinical opinion is this patient being managed for: ( x ) Acute on chronic diastolic/preserved EF CHF ( ) Other explanation of clinical findings (Please Explain) ( ) Unable to determine (Please Define) ( ) Need to Discuss ( ) Not Agree The medical record reflects the following clinical findings, treatment, and risk factors. Please clarify and document your clinical opinion in the progress notes and discharge summary. Terms such as "probable", "suspected", "likely", "questionable", "possible", or "still to be ruled out" are acceptable. IF IN AGREEMENT, YOU MUST DOCUMENT ABOVE DIAGNOSTIC STATEMENT IN DAILY PROGRESS NOTES AND DISCHARGE SUMMARY. This document is not part of the patient's record. Thank You, Nolan López, RN [phone]
[2016-12-16 13:01] VITALS: O2SAT 93
[2016-12-16] MEDS ORDERED: MILK AND MOLASSES ENEMA PR SCH (14:00)
--- NOTE | 2016-12-16 14:20 | Hospitalist Progress Note ---
Hospitalist Progress Note Date of Service Dec 16, 2016. Subjective Pt evaluation today including: conversation w/ patient, conversation w/ family , conversation w/ j2ee consultant (GI) Voiding: incontinence RN reports pt has been incontinent. Pt c/o suprapubic pain and abd distension. No further BMs since yesterday. having belching. Weaned off O2 Constitutional: No fever Respiratory: No shortness of breath Cardiovascular: No chest pain Objective Vital Signs Date Time Temp Pulse Resp B/P (MAP) Pulse Ox O2 Delivery O2 Flow Rate FiO2 12/16/16 13:01 93 12/16/16 11:37 99 Room Air 12/16/16 08:00 Nasal Cannula 4.0 12/16/16 07:22 36.7 72 18 143/85 (104) 91 Room Air 12/16/16 00:00 91 Nasal Cannula 6.0 12/15/16 23:22 36.9 72 18 137/82 (100) 92 3.0 12/15/16 22:09 93 Nasal Cannula 4.5 12/15/16 18:46 97 Nasal Cannula 2.5 12/15/16 16:00 96 Nasal Cannula 6.0 12/15/16 15:32 36.4 79 20 137/74 (95) 96 Nasal Cannula 6.0 Physical Exam General Appearance: WD/WN, no apparent distress (sitting in chair at bedside) Eyes: normal inspection, sclerae normal ENT: hearing grossly normal Neck: trachea midline Respiratory/Chest: no respiratory distress, no accessory muscle use, + crackles (at bases) Cardiovascular: regular rate, rhythm, + systolic murmur (3/6 at RUSB) Abdomen: + abnormal bowel sounds (hypoactive), + distended (massively distended with firm stool palpable, diffuse mild TTP w/o guarding), + tenderness (specifically in suprapubic region moreso but w/o guarding) Extremities: + pertinent finding (left leg with 3+ pitting edema, thin dry peeling skin, right leg no edema) Neurologic/Psychiatric: alert, normal mood/affect Skin: no rash Laboratory Results Last 24 Hours Test 12/16/16 05:43 12/16/16 07:10 12/16/16 09:08 White Blood Count 10.47 K/uL Red Blood Count 2.92 M/uL Hemoglobin 8.8 g/dL Hematocrit 27.2 % Mean Corpuscular Volume 93.2 fL Mean Corpuscular Hemoglobin 30.1 pg Mean Corpuscular Hemoglobin Concent 32.4 g/dl Platelet Count 165 K/uL Mean Platelet Volume 8.5 fL Neutrophils (%) (Auto) 64.5 % Lymphocytes (%) (Auto) 29.1 % Monocytes (%) (Auto) 5.4 % Eosinophils (%) (Auto) 0.0 % Basophils (%) (Auto) 0.2 % Neutrophils # (Auto) 6.75 K/uL Lymphocytes # (Auto) 3.05 K/uL Monocytes # (Auto) 0.57 K/uL Eosinophils # (Auto) 0.00 K/uL Basophils # (Auto) 0.02 K/uL RDW Standard Deviation 48.9 fL RDW Coefficient of Variation 14.4 % Immature Granulocyte % (Auto) 0.8 % Immature Granulocyte # (Auto) 0.08 K/uL Polychromasia 1+ Echinocytes 1+ Acanthocytes 1+ Activated Partial Thromboplast Time > 300.0 SECONDS > 300.0 SECONDS 95.2 SECONDS Partial Thromboplastin Ratio > 11.0 > 11.0 3.7 Sodium Level 133 mmol/L Potassium Level 4.5 mmol/L Chloride Level 96 mmol/L Carbon Dioxide Level 31 mmol/L Anion Gap 6.0 mmol/L Blood Urea Nitrogen 25 mg/dl Creatinine 1.60 mg/dl Est Creatinine Clear Calc Drug Dose 20.9 ml/min Estimated GFR () 33.0 Estimated GFR (Non- 28.5 BUN/Creatinine Ratio 15.8 Random Glucose 117 mg/dl Calcium Level 8.1 mg/dl Magnesium Level 2.8 mg/dl Total Bilirubin 0.8 mg/dl Direct Bilirubin 0.3 mg/dl Aspartate Amino Transf (AST/SGOT) 17 U/L Alanine Aminotransferase (ALT/SGPT) 17 U/L Alkaline Phosphatase 74 U/L Total Protein 5.7 gm/dl Albumin 3.0 gm/dl Free Thyroxine 1.35 ng/dl Free Triiodothyronine 1.27 pg/ml Assessment and Plan Pt is an 86 yo female with a 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 She was manually disimpacted in ER successfully. Hemoccult negative, continues to be anemic. Had acute hypoxemic respiratory failure overnight after admission requiring NRB facemask, likely secondary to Pulm edema. Also incidentally noted to have choledocholithiasis on CT scan abd/pel on admission as well as cholelithiasis and mild left hydronephrosis, severe fecal impaction. 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 LLE edema found on admission and Doppler confirms Acute DVT LLE Obstipation/Fecal impaction/Abd pain/Sterile colitis/possible choledocholithiasis with dilated CBD-->s/p manual disimpaction in the ED with success but continues with massively distended abdomen--CT findings consistent with a fecal impaction, with a massive amount of stool within the rectum and large amount of stool within the colon. There is adjacent inflammation of the colon noted that could be consistent with a colitis. There is also noted choledocholithiasis and cholelithiasis with moderate biliary ductal dilatation. HIDA confirms cystic duct obstruction. Stones vs mass in CBD? -more aggressive bowel regimen today--> Milk of molasses enema, Soap suds and Fleet Mineral Oil enema can all be tried and may need manual disimpaction -hold Miralax for now until moving from below to minimize nausea -continue docusate -GI consultation appreciated-may need ERCP--> would be high risk for procedure-- > consult Cardiology for preop eval and recommendations appreciated-high risk but will optimize medically -morphine prn pain but cautious as can worsen constipation -with h/o recent GI bleed and severe constipation--> question if has colon CA?-- > would be high risk for colonoscopy as well but will d/w GI--> work on bowel cleansing and consider colonoscopy and ERCP later this week Urinary retention secondary to constipation-bladder scanned just now for 700+ mL urine--> -place Hu to decompress bladder which will help with constipation as well -check UA and Ur cx Acute LLE DVT, POA/Anemia--> could be provoked by recent hospital stays but also with h/o PEs and nephrotic syndrome putting her at increased risk for recurrence. Hgb 8-9 and slight drop from previous on admission but now stable, did not receive any Fe supplementation since last admission 2 months ago. 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 [place] may be from severe constipation and urinary retention -place Hu today -follow PRP -check UA for protein -consider Nephro consult if worsening-she sees Dr. Gaitan -avoid nephrotoxins and renally dose all meds Severe ,Mod MR,Mild MS, HTN,CAD,PAF,h/o cerebellar CVA, acute hypoxemic resp failure secondary to acute on chronic dCHF-->BPs controlled.in regular rhythm here by exam and on ECG. Not on AC on admission likely due to h/o GI bleeding. But now on heparin gtt for acute DVT. In past AVR has been discussed but thought to not be a great candidate given comorbidities Acute resp failure now resolved--> weaned off O2 after diuresis -continue diltiazem,statin -continue po lasix -follow lytes -Consult Cardiology for preop management in case of ERCP need Hypercholesterolemia-- continue pravastatin 20 mg by mouth at bedtime. Hypothyroidism--continue levothyroxine sodium 75 g by mouth daily. GERD--continue pantoprazole but increase to 40 mg by mouth twice a day. Proph-heparin gtt, PPI Dispo- FUll code PT/OT evals
[2016-12-16 14:55] LABS: URINE APPEARANCE CLEAR (CLEAR); URINE BILIRUBIN NEG (NEG); URINE COLOR YELLOW; URINE NITRITE NEG (NEG); URINE SPECIFIC GRAVITY 1.024 (1.000-1.030); UROBILINOGEN NEG (NEG); ZZURINE CULT IF INDIC CATH NO
[2016-12-16 14:57] LABS: MANUAL MICROSCOPIC REQUIRED? NO; REVIEW REQ? NO
[2016-12-16 15:47] VITALS: BP 117/74; PULSE 64; TEMP 36.4; O2SAT 90
[2016-12-16 16:00] VITALS: O2SAT 95
--- NOTE | 2016-12-16 16:58 | Pulmonology Progress Note ---
Pulmonary Progress Note Date of Service Dec 16, 2016. Attending Dr. La Subjective Patient noting improvement in her overall respiratory status as well as decreased dyspnea on exertion Objective Patient able to complete sentences with no signs of respiratory distress, not using accessory muscles she has no active pulmonary complaints other than mild dyspnea on exertion at this time. Vital signs: Stable. 4 L nasal cannula Respiratory: Mild rhonchi bilaterally Cardiac: S1-S2 distant heart sounds Assessment & Plan 86-year-old female admitted with shortness of breath, fecal impaction and choledocholithiasis: #1 hypoxia: This clinically believe the patient's hypoxia is most likely secondary to her fecal impaction and aortic stenosis. She does not show any signs of active infection and/or vasculitis at this time. #2 DVT: His lungs are patient is a stable/no active bleeding we'll consider switching her to Eliquis prior to discharge. Data Medications: Current Inpatient Medications Medications (Trade) Dose Ordered Sig/Phillip Route Start Time Stop Time Status Last Admin Dose Admin Ioversol (Optiray 320) 125 ml UD PRN IV 12/14/16 10:15 12/18/16 10:14 Acetaminophen (Tylenol Tab) 650 mg Q4H PRN PO 12/14/16 17:00 01/13/17 16:59 12/15/16 23:46 650 MG Cholecalciferol (Vitamin D Tab) 2,000 inter.unit DAILY PO 12/15/16 08:00 01/14/17 08:59 12/16/16 07:29 2,000 INTER.UNIT Cyanocobalamin (Vitamin B-12 Tab) 1,000 mcg DAILY PO 12/15/16 08:00 01/14/17 08:59 12/16/16 07:29 1,000 MCG Diltiazem HCl (TIAzac CAP) 240 mg DAILY PO 12/15/16 08:00 01/14/17 08:59 12/16/16 07:29 240 MG Docusate Sodium (coLACE CAP) 100 mg BID PO 12/14/16 20:00 01/13/17 20:59 12/16/16 07:29 100 MG Levothyroxine Sodium (Synthroid Tab) 75 mcg DAILYBB PO 12/15/16 06:30 01/14/17 06:29 12/16/16 05:44 75 MCG Nystatin (Mycostatin Susp) 5 ml QID PO 12/14/16 19:00 12/24/16 18:59 12/16/16 11:36 5 ML Pravastatin Sodium (Pravachol Tab) 20 mg HS PO 12/14/16 21:00 01/13/17 20:59 12/15/16 20:11 20 MG Mupirocin (Bactroban 2% Oint) 1 appln DAILY EXT 12/15/16 08:00 01/14/17 07:59 12/16/16 07:29 1 APPLN Pantoprazole Sodium (Protonix Tab) 40 mg BID PO 12/14/16 20:00 01/13/17 20:59 12/16/16 07:28 40 MG Bisacodyl (Dulcolax Supp) 10 mg DAILY PRN VT 12/14/16 17:00 01/13/17 16:59 Heparin Sodium/ Dextrose 500 ml @ 20 mls/hr Q24H PRN IV 12/15/16 01:00 01/14/17 00:59 12/16/16 10:57 18 MLS/HR Furosemide (Lasix Tab) 20 mg QAM PO 12/16/16 08:00 01/15/17 07:59 12/16/16 07:29 20 MG Polyethylene (Miralax Powder Packet) 17 gm BID PO 12/15/16 20:00 01/14/17 08:59 Future Hold 12/16/16 07:28 17 GM Morphine Sulfate (MoRPHine SULFATE INJ) 2 mg Q4H PRN IV 12/15/16 12:00 12/29/16 11:59 Miscellaneous (Soap Suds Enema) 1 ea DAILY PRN VT 12/16/16 14:00 01/15/17 13:59 Mineral Oil (Fleet Oil Enema) 133 ml DAILY PRN VT 12/16/16 14:15 01/15/17 14:14 I & O: 24-Hour Column 12/17/16 07:59 Intake Total 727 ml Balance 727 ml Vital Signs: Date Time Temp Pulse Resp B/P (MAP) Pulse Ox O2 Delivery O2 Flow Rate FiO2 12/16/16 15:47 36.4 64 20 117/74 (88) 90 Nasal Cannula 4.0 12/16/16 13:01 93 12/16/16 11:37 99 Room Air 12/16/16 08:00 Nasal Cannula 4.0 12/16/16 07:22 36.7 72 18 143/85 (104) 91 Room Air 12/16/16 00:00 91 Nasal Cannula 6.0 12/15/16 23:22 36.9 72 18 137/82 (100) 92 3.0 12/15/16 22:09 93 Nasal Cannula 4.5 12/15/16 18:46 97 Nasal Cannula 2.5 Laboratory Results: Last 24 Hours Test 12/16/16 05:43 12/16/16 07:10 12/16/16 09:08 12/16/16 14:40 White Blood Count 10.47 K/uL Red Blood Count 2.92 M/uL Hemoglobin 8.8 g/dL Hematocrit 27.2 % Mean Corpuscular Volume 93.2 fL Mean Corpuscular Hemoglobin 30.1 pg Mean Corpuscular Hemoglobin Concent 32.4 g/dl Platelet Count 165 K/uL Mean Platelet Volume 8.5 fL Neutrophils (%) (Auto) 64.5 % Lymphocytes (%) (Auto) 29.1 % Monocytes (%) (Auto) 5.4 % Eosinophils (%) (Auto) 0.0 % Basophils (%) (Auto) 0.2 % Neutrophils # (Auto) 6.75 K/uL Lymphocytes # (Auto) 3.05 K/uL Monocytes # (Auto) 0.57 K/uL Eosinophils # (Auto) 0.00 K/uL Basophils # (Auto) 0.02 K/uL RDW Standard Deviation 48.9 fL RDW Coefficient of Variation 14.4 % Immature Granulocyte % (Auto) 0.8 % Immature Granulocyte # (Auto) 0.08 K/uL Polychromasia 1+ Echinocytes 1+ Acanthocytes 1+ Activated Partial Thromboplast Time > 300.0 SECONDS > 300.0 SECONDS 95.2 SECONDS Partial Thromboplastin Ratio > 11.0 > 11.0 3.7 Sodium Level 133 mmol/L Potassium Level 4.5 mmol/L Chloride Level 96 mmol/L Carbon Dioxide Level 31 mmol/L Anion Gap 6.0 mmol/L Blood Urea Nitrogen 25 mg/dl Creatinine 1.60 mg/dl Est Creatinine Clear Calc Drug Dose 20.9 ml/min Estimated GFR () 33.0 Estimated GFR (Non- 28.5 BUN/Creatinine Ratio 15.8 Random Glucose 117 mg/dl Calcium Level 8.1 mg/dl Magnesium Level 2.8 mg/dl Total Bilirubin 0.8 mg/dl Direct Bilirubin 0.3 mg/dl Aspartate Amino Transf (AST/SGOT) 17 U/L Alanine Aminotransferase (ALT/SGPT) 17 U/L Alkaline Phosphatase 74 U/L Total Protein 5.7 gm/dl Albumin 3.0 gm/dl Free Thyroxine 1.35 ng/dl Free Triiodothyronine 1.27 pg/ml Urine Color YELLOW Urine Appearance CLEAR Urine pH 5.0 Urine Specific [place] 1.024 Urine Protein NEG Urine Glucose (UA) NEG Urine Ketones NEG Urine Occult Blood NEG Urine Nitrite NEG Urine Bilirubin NEG Urine Urobilinogen NEG Urine Leukocyte Esterase NEG Urine WBC (Auto) 1-5 /hpf Urine RBC (Auto) 0-4 /hpf Urine Hyaline Casts (Auto) 1-5 /lpf Urine Epithelial Cells (Auto) 5-10 /lpf Urine Bacteria (Auto) NEG
[2016-12-16 17:24] LABS: PARTIAL THROMBOPLASTIN RATIO 4.3
[2016-12-16] MEDS ORDERED: NURSING VERBAL MED ORDER ONE (19:00)
[2016-12-16] MEDS: ONDANSETRON INJ 2 MG/ML 2 ML VIAL IV PRN (19:29)
--- NOTE | 2016-12-16 19:39 | GASTROENTEROLOGY PROGRESS NOTE ---
DATE: 12/16/2016 SUBJECTIVE: The patient reports that she did have some bowel movement yesterday, but has not had any additional laxatives or enemas. She feels that her belly is perhaps less uncomfortable and bloated, although it remains distended. She does not report any right upper quadrant pain and denies any fevers or shaking chills. PHYSICAL EXAMINATION: VITAL SIGNS: Today, the patient is afebrile 36.7, heart rate 72, blood pressure 143/85, respirations 18, pulse ox 91 on room air. LABORATORY STUDIES: White count today 10.4, hemoglobin 8.8, hematocrit 27.2, platelets 165,000. Serum chemistries: Sodium 133, BUN and creatinine are 25 and 1.6, slightly elevated from yesterday, her alkaline phosphatase is normal at 74, ALT 17, AST 17, total protein 5.7. TSH is slightly elevated at 6.9. Free T4 is 1.3. Free T3 is slightly low at 1.27. MEDICATIONS: Reviewed and include Lasix, levothyroxine, Pravachol, Colace, pantoprazole, acetaminophen, bisacodyl. PHYSICAL EXAMINATION: GENERAL: Today, the patient is awake, alert and oriented x3. She is accompanied by her daughter. HEART: Normal S1, S2. LUNGS: Clear to auscultation, although decreased breath sounds at the base. ABDOMEN: Soft, protuberant, without significant tympanitic sounds. There are positive bowel sounds. There is no rebound or guarding. There is a firmness particularly in the left lower quadrant area. EXTREMITIES: Without clubbing, cyanosis. Trace edema. IMPRESSION: The patient with several gastrointestinal issues. First, the patient had been previously admitted for gastrointestinal bleeding, although at that time endoscopic examination was deferred because of her health status. She has not had any overt bleeding reported and her hemoglobin currently is 8.8. On admission, she was 9.7. The patient cannot recall ever having had a colonoscopy. Certainly, at some point, it may be reasonable to assess the colon, particularly to exclude any obstructing lesions that may be leading to the patient's obstipation . However, initially it would be important to disimpact the patient by either enemas and mineral oil and would avoid approaches from above until there has been some reasonable stool output that would permit additional antegrade bowel prep. The patient in addition to tap water and soapsuds enema and possibly Milk and Molasses enema, a mineral oil enema after this may help soften and lubricate for additional passage. Regarding the patient's abnormal CT imaging, this is occurring in the setting of normal LFTs. The patient currently does not have any upper abdominal symptoms and does not report chronic weight loss. 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 There is no evidence for cholangitis presently. At some point, this could be evaluated by ERCP. However, I think the primary concern right now would be to make efforts to cleanse the colon and possible colonoscopy. We will continue to follow. If the patient can have a reasonable bowel movement with the above, then can consider beginning a bowel prep with MiraLax and Dulcolax tablets. THONYD
[2016-12-16] MEDS: MINERAL OIL ENEMA 133 ML BTL PR PRN (20:32)
[2016-12-16] MEDS: PRAVASTATIN SOD 20 MG TAB PO SCH (21:11)
[2016-12-16 21:31] LABS: MYELOPEROXIDASE AB <1.0 AI (<1.0)
[2016-12-17] VITALS: O2SAT 94
[2016-12-17] MEDS: ONDANSETRON INJ 2 MG/ML 2 ML VIAL IV PRN ×2 (00:01→19:22)
[2016-12-17 00:43] VITALS: BP 142/80; PULSE 71; TEMP 36.5; O2SAT 92
[2016-12-17 01:03] LABS: PARTIAL THROMBOPLASTIN RATIO 3.5
[2016-12-17 05:02] LABS: HEMATOCRIT 28.1 % (37-47); MEAN CELL VOLUME 92.7 fL (80-100); MEAN CORPUSCULAR HGB CONC 31.3 g/dl (32-36); MEAN PLATELET VOLUME 8.3 fL (7.4-10.4); PLATELET COUNT 215 K/uL (130-400); RED BLOOD COUNT 3.03 M/uL (4.2-5.4); WHITE BLOOD COUNT 15.25 K/uL (4.8-10.8)
[2016-12-17 05:34] LABS: BUN/CREATININE RATIO 15.2 (10-20); CALCIUM 8.3 mg/dl (8.5-10.1); CREATININE 2.3 mg/dl (0.60-1.20); MAGNESIUM 2.9 mg/dl (1.8-2.4)
[2016-12-17] MEDS: LEVOTHYROXINE 75 MCG TAB PO SCH (06:16)
[2016-12-17 07:45] LABS: HEMATOCRIT 27.3 % (37-47)
[2016-12-17] MEDS ORDERED: PANTOprazole INJ 80 MG in DEXTROSE 5% 100ML IV ONE (07:45)
[2016-12-17 07:54] LABS: PARTIAL THROMBOPLASTIN RATIO 1.1
[2016-12-17] MEDS: FUROSEMIDE 20 MG TAB PO SCH (07:56)
[2016-12-17] MEDS: SODIUM CHLORIDE 0.9% 1000ML 1,000 ML IV SCH ×2 (07:56→21:34)
[2016-12-17] MEDS: CHOLECALCIFEROL 1000 INTER.UNIT TAB PO SCH (07:56)
[2016-12-17] MEDS: CYANOCOBALAMIN 500 MCG TAB (VIT B-12) PO SCH (07:56)
[2016-12-17] MEDS: PRAVASTATIN SOD 20 MG TAB PO SCH (07:56)
[2016-12-17] MEDS: DILTIAZEM HCL 120 MG EXT REL CAP PO SCH (07:56)
[2016-12-17] MEDS: DOCUSATE SODIUM 100 MG CAP PO SCH ×2 (07:56→20:40)
[2016-12-17 07:57] VITALS: BP 132/57; PULSE 85; TEMP 36.7; O2SAT 100
[2016-12-17] MEDS: NYSTATIN SUSP 500,000 U/5 ML UDC PO SCH ×4 (07:57→20:40)
[2016-12-17] MEDS: MUPIROCIN 2% OINT 22 GM TUBE EXT SCH (07:57)
[2016-12-17] MEDS: PANTOprazole INJ 40 MG in DEXTROSE 5% 100ML IV SCH ×2 (08:14→12:17)
--- NOTE | 2016-12-17 11:11 | Hospitalist Progress Note ---
Hospitalist Progress Note Date of Service Dec 17, 2016. Subjective Pt evaluation today including: conversation w/ patient, conversation w/ family (son on phone), conversation w/ business continuity consultant (GI, Cardiology) Pt had 100 mL of hematemesis last night that appeared like coffee grounds to the RN. Heparin gtt was stopped. She also didn't want her Dick in and took scissors from her purse and cut the tubing. Dick was removed after that. Had quite a bit of stool evacuated last night after milk and molasses and mineral oil enemas. Discussed with GI today--> needs EGD and pt agreeable. Seen by Cardio and optimally managed for anesthesia at this time. Discussed possibility of needing IVC filter if has persistent bleeding. Hgb is stable at this time though. Will decide about IVC filter after EGD. All Other Systems: Reviewed and Negative Objective Vital Signs Date Time Temp Pulse Resp B/P (MAP) Pulse Ox O2 Delivery O2 Flow Rate FiO2 12/17/16 10:16 Nasal Cannula 4.0 12/17/16 07:57 36.7 85 20 132/57 (82) 100 4.0 12/17/16 00:43 36.5 71 16 142/80 (100) 92 Nasal Cannula 4.0 12/17/16 00:00 94 Nasal Cannula 4.0 12/16/16 16:00 95 Nasal Cannula 4.0 12/16/16 15:47 36.4 64 20 117/74 (88) 90 Nasal Cannula 4.0 12/16/16 13:01 93 12/16/16 11:37 99 Room Air Physical Exam General Appearance: no apparent distress Eyes: normal inspection, sclerae normal ENT: hearing grossly normal Neck: trachea midline Respiratory/Chest: no respiratory distress, no accessory muscle use, + crackles (at bases bilat) Cardiovascular: regular rate, rhythm, + systolic murmur (3/6 at RUSB), + pertinent finding (left leg with 2+ pitting edema, RLE no edema) Abdomen: normal bowel sounds, + pertinent finding (still with protuberant abdomen and hard stool palpable most prominently in LLQ with some mild TTP but no guarding, is a bit softer in periumbilical region than previous) Neurologic/Psychiatric: alert, + depressed affect Skin: normal color, warm/dry, no rash Laboratory Results Last 24 Hours Test 12/16/16 14:40 12/16/16 16:58 12/17/16 00:33 12/17/16 04:09 Urine Color YELLOW Urine Appearance CLEAR Urine pH 5.0 Urine Specific [place] 1.024 Urine Protein NEG Urine Glucose (UA) NEG Urine Ketones NEG Urine Occult Blood NEG Urine Nitrite NEG Urine Bilirubin NEG Urine Urobilinogen NEG Urine Leukocyte Esterase NEG Urine WBC (Auto) 1-5 /hpf Urine RBC (Auto) 0-4 /hpf Urine Hyaline Casts (Auto) 1-5 /lpf Urine Epithelial Cells (Auto) 5-10 /lpf Urine Bacteria (Auto) NEG Activated Partial Thromboplast Time 111.5 SECONDS 90.9 SECONDS Partial Thromboplastin Ratio 4.3 3.5 White Blood Count 15.25 K/uL Red Blood Count 3.03 M/uL Hemoglobin 8.8 g/dL Hematocrit 28.1 % Mean Corpuscular Volume 92.7 fL Mean Corpuscular Hemoglobin 29.0 pg Mean Corpuscular Hemoglobin Concent 31.3 g/dl RDW Standard Deviation 49.1 fL RDW Coefficient of Variation 14.5 % Platelet Count 215 K/uL Mean Platelet Volume 8.3 fL Sodium Level 130 mmol/L Potassium Level 5.0 mmol/L Chloride Level 94 mmol/L Carbon Dioxide Level 27 mmol/L Anion Gap 9.0 mmol/L Blood Urea Nitrogen 35 mg/dl Creatinine 2.30 mg/dl Est Creatinine Clear Calc Drug Dose 14.5 ml/min Estimated GFR () 21.3 Estimated GFR (Non- 18.4 BUN/Creatinine Ratio 15.2 Random Glucose 112 mg/dl Calcium Level 8.3 mg/dl Magnesium Level 2.9 mg/dl Total Bilirubin 1.4 mg/dl Direct Bilirubin 0.5 mg/dl Aspartate Amino Transf (AST/SGOT) 23 U/L Alanine Aminotransferase (ALT/SGPT) 24 U/L Alkaline Phosphatase 79 U/L Total Protein 6.0 gm/dl Albumin 3.3 gm/dl Test 12/17/16 07:38 Hemoglobin 8.8 g/dL Hematocrit 27.3 % Activated Partial Thromboplast Time 27.5 SECONDS Partial Thromboplastin Ratio 1.1 Assessment and Plan Pt is an 86 yo female with a 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 She was manually disimpacted in ER successfully. Hemoccult negative, continues to be anemic. Had acute hypoxemic respiratory failure overnight after admission requiring NRB facemask, likely secondary to Pulm edema. Also incidentally noted to have choledocholithiasis on CT scan abd/pel on admission as well as cholelithiasis and mild left hydronephrosis, severe fecal impaction. Her renal function is stable from previous with teacher instrumental 1.6 and her LFTs are normal. LLE edema found on admission and Doppler confirms Acute DVT LLE Obstipation/Fecal impaction/Abd pain/Sterile colitis/possible choledocholithiasis with dilated CBD-->s/p manual disimpaction in the ED with success but continued with massively distended abdomen--CT findings consistent with a fecal impaction, and massive amount of stool w/ adjacent inflammation of the colon that could be consistent with a colitis. Also noted choledocholithiasis and cholelithiasis with moderate biliary ductal dilatation. HIDA confirms cystic duct obstruction. Stones vs mass in CBD? Had some successful BMs with enemas on 12/16 Now with hematemesis/coffee ground emesis on 12/17, heparin gtt held -continue with soap suds enemas today -holding Miralax for now until moving from below to minimize nausea -EGD today -continue docusate -GI consultation appreciated-may need ERCP at some point for stones but not today -with h/o recent GI bleed and severe constipation--> question if has colon CA?-- > would be high risk for colonoscopy as well but will d/w GI--> work on bowel cleansing and consider colonoscopy and ERCP later this week Urinary retention secondary to constipation, ANA PAULA on CKD stage III-pt cut her Dick with scissors with episode of delirium-> -does not tolerate Dick -bladder scan and straight cath prn PVR>300 mL Acute LLE DVT, POA/Anemia--> could be provoked by recent hospital stays but also with h/o PEs and nephrotic syndrome putting her at increased risk for recurrence. Hgb 8-9 and slight drop from previous on admission but now stable, did not receive any Fe supplementation since last admission 2 months ago. Hematemesis and now heparin gtt on hold Hgb remains stable at 8.8 -holding heparin gtt for now -follow CBC closely given anemia -may need IV Fe in future, could give PRBC transfusion here if needed -Consult to Heme appreciated -consider IVC filter placement if continued GI bleeding-d/w pt and son ANA PAULA on CKD stage III, Membranous GN/Nephrotic SYndrome, h/o HD and AIN in 2008, Mild left hydroureteronephrosis--received IVFs for teacher instrumental initiallly but this is her new baseline, developed Pulm edema, dc IVFs. [place] may be from severe constipation and urinary retention Bias Cutter Helper worse today at 2.3 up from 1.6 UA without evidence of infection or protein -consult Nephrology -straight cath prn as above given intolerance to Dick -follow PRP -avoid nephrotoxins and renally dose all meds -hold lasix, start gentle IVF hydration Severe ,Mod MR,Mild MS, HTN,CAD,PAF,h/o cerebellar CVA, acute hypoxemic resp failure secondary to acute on chronic dCHF-->BPs controlled.in regular rhythm here by exam and on ECG. Not on AC on admission likely due to h/o GI bleeding. AC currently on hold as above for bleeding In past AVR has been discussed but thought to not be a great candidate given comorbidities Acute resp failure comes and goes--> back on O2 intermittently -continue diltiazem,statin -hold po lasix now for worsening renal failure -follow lytes -Consult Cardiology for preop management appreciated Hypercholesterolemia-- continue pravastatin 20 mg by mouth at bedtime. Hypothyroidism--continue levothyroxine sodium 75 g by mouth daily. GERD--continue pantoprazole but increase to 40 mg by mouth twice a day. Proph-SCD to rt leg, heparin gtt on hold, PPI Dispo- FUll code PT/OT evals
--- NOTE | 2016-12-17 11:52 | Nephrology Consultation ---
Nephrology Consultation Date & Providers Date of Consultation: Dec 17, 2016. Primary Care Provider: Eugenio Cardenas M.D. Referring Provider: Reason for Consultation Evaluation management for acute kidney injury with history of chronic kidney disease. History of Present Illness Anusha is a 78-year-old female with past medical history significant for dialysis requiring acute kidney injury, nephrotic syndrome, hypertension, history of severe aortic stenosis admitted to the hospital with constipation and fecal impaction. Nephrology consult was requested as she is found to have acute kidney injury. electronic medical records reviewed in detail during patient's visit. Induced presented to the hospital with no bowel movement for [address] abdomen pelvis showed fecal impaction and she had manual disimpaction. She was found to have cholelithiasis and choledocholithiasis without evidence of darin cholangitis and HIDA scan showing non visualization of GB and cystic duct obstruction. She was also found to have acute lower extremity DVT and started on heparin for anticoagulation. On admission her creatinine was 1.6 which has been as stable until this morning when her creatinine worsened to 2.3. Prior renal ultrasound showed bilateral atrophic kidneys with chronic mild right-sided hydronephrosis. Urinalysis unremarkable for hematuria proteinuria. CT abdomen pelvis on admission showed left-sided mild hydronephrosis. She has been making urine. She has chronic anemia with concern for GI bleeding, FOBT negative, scheduled for EGD today At baseline she has stage III CKD, creatinine variable from 1.2-1.4. She had pulmonary embolism and nephrotic syndrome in 2007,20 grams of proteinuria, no kidney biopsy done As she was on anticoagulation. 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 Proteinuria resolved. Subsequently she had another episode of acute kidney injury in 2013 which was thought to be due to acute interstitial nephritis in the setting of multiple antibiotic dose. Recently she had several episodes of acute kidney injury in the setting of hospital admission for possible GI bleeding. renal function improved and has been staying around baseline of 1.6. This morning she seems very lethargic and did not communicate much although opened eyes. Allergies Coded Allergies: Doxycycline (Verified Allergy, Intermediate, RASH, 12/15/16) Trimethoprim (Verified Allergy, Intermediate, RASH, 12/15/16) Adhesives (Verified Allergy, Unknown, HAD RXN TO [employer] PATCHES, ) Amoxicillin (Verified Allergy, Unknown, RASH, 12/15/16) Atorvastatin (Verified Allergy, Unknown, UNKNOWN, 12/15/16) Carbamazepine (Verified Allergy, Unknown, 12/14/16) Hydantoins (Verified Allergy, Unknown, 12/14/16) Levofloxacin (Verified Allergy, Unknown, UNKNOWN, 12/15/16) Penicillins (Verified Allergy, Unknown, AMOXIL,HAS TOLERATED CEPHS, 12/15/16 ) has tolerated cefepime and ceftriaxone on previous admissions Phenytoin (Verified Allergy, Unknown, 12/14/16) Sulfamethoxazole w/Trimethoprim (Unverified Allergy, Unknown, VASCULITIS, 12/14/16) Inpatient Medications Current Inpatient Medications Medications (Trade) Dose Ordered Sig/Phillip Route Start Time Stop Time Status Last Admin Dose Admin Ioversol (Optiray 320) 125 ml UD PRN IV 12/14/16 10:15 12/18/16 10:14 Acetaminophen (Tylenol Tab) 650 mg Q4H PRN PO 12/14/16 17:00 01/13/17 16:59 12/15/16 23:46 650 MG Cholecalciferol (Vitamin D Tab) 2,000 inter.unit DAILY PO 12/15/16 08:00 01/14/17 08:59 12/16/16 07:29 2,000 INTER.UNIT Cyanocobalamin (Vitamin B-12 Tab) 1,000 mcg DAILY PO 12/15/16 08:00 01/14/17 08:59 12/16/16 07:29 1,000 MCG Diltiazem HCl (TIAzac CAP) 240 mg DAILY PO 12/15/16 08:00 01/14/17 08:59 12/16/16 07:29 240 MG Docusate Sodium (coLACE CAP) 100 mg BID PO 12/14/16 20:00 01/13/17 20:59 12/16/16 21:11 100 MG Levothyroxine Sodium (Synthroid Tab) 75 mcg DAILYBB PO 12/15/16 06:30 01/14/17 06:29 Future Hold 12/17/16 06:16 75 MCG Nystatin (Mycostatin Susp) 5 ml QID PO 12/14/16 19:00 12/24/16 18:59 12/16/16 21:11 5 ML Pravastatin Sodium (Pravachol Tab) 20 mg HS PO 12/14/16 21:00 01/13/17 20:59 12/16/16 21:11 20 MG Mupirocin (Bactroban 2% Oint) 1 appln DAILY EXT 12/15/16 08:00 01/14/17 07:59 12/17/16 07:57 1 APPLN Bisacodyl (Dulcolax Supp) 10 mg DAILY PRN [place] 12/14/16 17:00 01/13/17 16:59 Heparin Sodium/ Dextrose 500 ml @ 13 mls/hr Q24H PRN IV 12/15/16 01:00 01/14/17 00:59 12/16/16 19:20 15 MLS/HR Furosemide (Lasix Tab) 20 mg QAM PO 12/16/16 08:00 01/15/17 07:59 12/16/16 07:29 20 MG Polyethylene (Miralax Powder Packet) 17 gm BID PO 12/15/16 20:00 01/14/17 08:59 Future Hold 12/16/16 07:28 17 GM Morphine Sulfate (MoRPHine SULFATE INJ) 2 mg Q4H PRN IV 12/15/16 12:00 12/29/16 11:59 Miscellaneous (Soap Suds Enema) 1 ea DAILY PRN AR 12/16/16 14:00 01/15/17 13:59 Mineral Oil (Fleet Oil Enema) 133 ml DAILY PRN AR 12/16/16 14:15 01/15/17 14:14 12/16/16 20:32 133 ML Ondansetron HCl (Zofran Inj) 4 mg Q8H PRN IV 12/16/16 19:30 01/15/17 19:29 12/17/16 00:01 4 MG Levothyroxine Sodium 37.5 mcg/ Syringe 1.875 ml @ 2 mls/min DAILY@09 IV 12/18/16 09:00 01/17/17 08:59 Pantoprazole Sodium 40 mg/ Dextrose 100 ml @ 20 mls/hr Q5H IV 12/17/16 08:00 01/16/17 07:59 12/17/16 08:14 20 MLS/HR Sodium Chloride 1,000 ml @ 75 mls/hr [id number] IV 12/17/16 07:45 01/16/17 07:44 12/17/16 07:56 75 MLS/HR Family History Heart disease Social History Smoking Status: Never Smoker Drug Use: none Marital Status: Housing Status: lives with family 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 Review of Systems A complete review of systems was performed. Pertinent positives are noted above. All other systems are negative. Physical Exam Date Time Temp Pulse Resp B/P (MAP) Pulse Ox O2 Delivery O2 Flow Rate FiO2 12/17/16 10:16 Nasal Cannula 4.0 12/17/16 07:57 36.7 85 20 132/57 (82) 100 4.0 12/17/16 00:43 36.5 71 16 142/80 (100) 92 Nasal Cannula 4.0 12/17/16 00:00 94 Nasal Cannula 4.0 12/16/16 16:00 95 Nasal Cannula 4.0 12/16/16 15:47 36.4 64 20 117/74 (88) 90 Nasal Cannula 4.0 12/16/16 13:01 93 12/16/16 11:37 99 Room Air GENERAL: elderly female, AAA x 3, pleasant, healthy-appearing, not in any distress. HEENT: Atraumatic, normocephalic. NECK: Supple, no JVD, no carotid bruit appreciated. ENT: No sinus tenderness MOUTH and THROAT: Moist oral mucosa, no oral ulcer or pharyngeal erythema RESPIRATORY: Normal breathing efforts, no accessory muscle use, clear to auscultation bilaterally, no wheezes or rales. CARDIOVASCULAR: S1, S2 normal, rate rhythm regular. ABDOMEN: Soft, nontender, positive bowel sound. MUSCULOSKELETAL: No CVA tenderness. No joint swelling, erythema or tenderness. Normal range of motion. SKIN: No skin rash EXTREMITY: No lower extremity edema NEURO: No gross focal neurological deficit, speech fluent. PSYCHIATRY: Normal mood and judgment Laboratory Results Last 24 Hours Test 12/16/16 14:40 12/16/16 16:58 12/17/16 00:33 12/17/16 04:09 Urine Color YELLOW Urine Appearance CLEAR Urine pH 5.0 Urine Specific [place] 1.024 Urine Protein NEG Urine Glucose (UA) NEG Urine Ketones NEG Urine Occult Blood NEG Urine Nitrite NEG Urine Bilirubin NEG Urine Urobilinogen NEG Urine Leukocyte Esterase NEG Urine WBC (Auto) 1-5 /hpf Urine RBC (Auto) 0-4 /hpf Urine Hyaline Casts (Auto) 1-5 /lpf Urine Epithelial Cells (Auto) 5-10 /lpf Urine Bacteria (Auto) NEG Activated Partial Thromboplast Time 111.5 SECONDS 90.9 SECONDS Partial Thromboplastin Ratio 4.3 3.5 White Blood Count 15.25 K/uL Red Blood Count 3.03 M/uL Hemoglobin 8.8 g/dL Hematocrit 28.1 % Mean Corpuscular Volume 92.7 fL Mean Corpuscular Hemoglobin 29.0 pg Mean Corpuscular Hemoglobin Concent 31.3 g/dl RDW Standard Deviation 49.1 fL RDW Coefficient of Variation 14.5 % Platelet Count 215 K/uL Mean Platelet Volume 8.3 fL Sodium Level 130 mmol/L Potassium Level 5.0 mmol/L Chloride Level 94 mmol/L Carbon Dioxide Level 27 mmol/L Anion Gap 9.0 mmol/L Blood Urea Nitrogen 35 mg/dl Creatinine 2.30 mg/dl Est Creatinine Clear Calc Drug Dose 14.5 ml/min Estimated GFR () 21.3 Estimated GFR (Non- 18.4 BUN/Creatinine Ratio 15.2 Random Glucose 112 mg/dl Calcium Level 8.3 mg/dl Magnesium Level 2.9 mg/dl Total Bilirubin 1.4 mg/dl Direct Bilirubin 0.5 mg/dl Aspartate Amino Transf (AST/SGOT) 23 U/L Alanine Aminotransferase (ALT/SGPT) 24 U/L Alkaline Phosphatase 79 U/L Total Protein 6.0 gm/dl Albumin 3.3 gm/dl Test 12/17/16 07:38 Hemoglobin 8.8 g/dL Hematocrit 27.3 % Activated Partial Thromboplast Time 27.5 SECONDS Partial Thromboplastin Ratio 1.1 Impression (1) Hyponatremia (2) ANA PAULA (acute kidney injury) (3) Hypertension Nos (4) Anemia (5) Obstipation Anusha is a 86-year-old female with the acute kidney injury, prior history of dialysis requiring acute kidney injury with recovery, chronic kidney disease, prior history of nephrotic syndrome, history of seizure disorder, severe aortic stenosis and history of pulmonary embolism before. She was admitted to the hospital with constipation and fecal impaction. Has baseline stage 3 chronic kidney disease creating 1.2-1.4, prior history of nephrotic syndrome and dialysis requiring acute kidney injury in 2007 with significant recovery. On admission creatinine was at baseline of 1.6 a stayed stable for 3 days however this morning she was found to have acute kidney injury with creatinine 2.4. She has been non oliguria. Currently with multiple medical problem including constipation, anemia with possible GI bleed concern for upper GI bleeding however with severe constipation and anemia concern for colonic pathology remains. Found to have obstructed cystic duct. On admission she was also found to have acute lower extremity DVT and started on heparin drip. however with concern for GI bleeding eventually may have to get IVC filter Has history of chronic right-sided mild hydronephrosis, CT abdomen pelvis on admission showing left-sided moderate hydronephrosis. With acute kidney injury this morning concern whether this is hemodynamic or in fact postrenal obstruction. Patient did not tolerate Hu catheter which was removed. Recommendations --Would like to get a renal ultrasound to follow-up on the hydronephrosis on the left side and as well as prior history of right-sided mild hydronephrosis --hyponatremia seems to be with volume overload and decreased free water clearance, will check urine osmolality however getting a urine sample can be difficult as a Hu catheter had to remove --suggest stopping IV fluid --restrict free water to less than 1500 mL --will monitor renal function Thank you for allowing me to participate in your patient's care. Will follow This chart was completed utilizing [employer] Speech and voice recognition software. Grammatical errors, random word insertions, pronoun errors and incomplete sentences are occasional consequences of this system. Any questions or concerns about the content, text or information contained within the body of this dictation should be addressed directly to the physician for clarification.
[2016-12-17] MEDS: SOAP SUDS ENEMA PR PRN (12:09)
--- NOTE | 2016-12-17 12:22 | Cardiology Follow-Up ---
Subjective Subjective Date of Service: Dec 17, 2016. Pt evaluation today including: conversation w/ patient, physical exam, chart review, lab review, review of studies, review of inpatient medication list Additional Details: Reported episode of coffee ground emesis overnight. Heparin discontinued. 1 BM overnight Some confusion overnight with sweet difficulties resulting in removal. This morning feeling OK. Denies chest pain, shortness of breath. Persistent mild abdominal discomfort. Problem List Medical Problems: (1) Acute kidney injury Status: Acute (2) Anemia Status: Acute (3) Chronic anemia Status: Acute (4) Colitis Status: Acute (5) Elevated troponin Status: Acute (6) Hypoxia Status: Acute Review of Systems Constitutional: No fever Respiratory: No shortness of breath Cardiac: No chest pain Abdomen: + pain, + vomiting, + constipation, + GI bleeding, No nausea Heme: + abnormal bleeding/bruising Skin: + new/changing skin lesions (multiple skin tears) Objective Vital Signs Last Vital Signs Documentation Date Time Temp Pulse Resp B/P (MAP) Pulse Ox O2 Delivery O2 Flow Rate FiO2 12/17/16 07:57 36.7 85 20 132/57 (82) 100 4.0 12/17/16 00:43 Nasal Cannula Physical Exam: General Appearance: no apparent distress (sitting in chair at bedside) ENT: hearing grossly normal Neck: + pertinent finding (JVP ~7) Respiratory/Chest: no respiratory distress, no accessory muscle use, + crackles (few at bases left > right clearing with deep inspiration) Cardiovascular: regular rate, rhythm, + systolic murmur (3/6 at RUSB) Abdomen: + abnormal bowel sounds (hypoactive), + distended (massively distended ), + tenderness (diffuse) Extremities: + pertinent finding (left leg with 3+ pitting edema, thin dry peeling skin, right leg no edema) Neurologic/Psychiatric: alert, normal mood/affect Skin: no rash Lymphatic: no adenopathy Assessment and Plan 1. Coffee ground emesis/Recurrent Anemia 2. Obstipation 3. Choledocholithiasis 4. Severe symptomatic 5. HFpEF 6. Acute DVT 7. Acute on chronic kidney disease Hemodynamically stable, and well perfused today with minimal residual congestion on exam. From a cardiac standpoint feel volume status is near goal for any possible possible procedure. Agree with holding standing lasix today in the setting of Carlos Also OK to hold diltiazem in the setting of questionable active GI bleed. Heparin on hold - decision re: IVC filter per primary team. Will continue to follow. Medications: Current Inpatient Medications Medications (Trade) Dose Ordered Sig/Phillip Route Start Time Stop Time Status Last Admin Dose Admin Ioversol (Optiray 320) 125 ml UD PRN IV 12/14/16 10:15 12/18/16 10:14 Acetaminophen (Tylenol Tab) 650 mg Q4H PRN PO 12/14/16 17:00 01/13/17 16:59 12/15/16 23:46 650 MG Cholecalciferol (Vitamin D Tab) 2,000 inter.unit DAILY PO 12/15/16 08:00 01/14/17 08:59 12/16/16 07:29 2,000 INTER.UNIT Cyanocobalamin (Vitamin B-12 Tab) 1,000 mcg DAILY PO 12/15/16 08:00 01/14/17 08:59 12/16/16 07:29 1,000 MCG Diltiazem HCl (TIAzac CAP) 240 mg DAILY PO 12/15/16 08:00 01/14/17 08:59 12/16/16 07:29 240 MG Docusate Sodium (coLACE CAP) 100 mg BID PO 12/14/16 20:00 01/13/17 20:59 12/16/16 21:11 100 MG Levothyroxine Sodium (Synthroid Tab) 75 mcg DAILYBB PO 12/15/16 06:30 01/14/17 06:29 Future Hold 12/17/16 06:16 75 MCG Nystatin (Mycostatin Susp) 5 ml QID PO 12/14/16 19:00 12/24/16 18:59 12/16/16 21:11 5 ML Pravastatin Sodium (Pravachol Tab) 20 mg HS PO 12/14/16 21:00 01/13/17 20:59 12/16/16 21:11 20 MG Mupirocin (Bactroban 2% Oint) 1 appln DAILY EXT 12/15/16 08:00 01/14/17 07:59 12/17/16 07:57 1 APPLN Bisacodyl (Dulcolax Supp) 10 mg DAILY PRN [place] 12/14/16 17:00 01/13/17 16:59 Heparin Sodium/ Dextrose 500 ml @ 13 mls/hr Q24H PRN IV 12/15/16 01:00 01/14/17 00:59 12/16/16 19:20 15 MLS/HR Polyethylene (Miralax Powder Packet) 17 gm BID PO 12/15/16 20:00 01/14/17 08:59 Future Hold 12/16/16 07:28 17 GM Morphine Sulfate (MoRPHine SULFATE INJ) 2 mg Q4H PRN IV 12/15/16 12:00 12/29/16 11:59 Miscellaneous (Soap Suds Enema) 1 ea DAILY PRN [place] 12/16/16 14:00 01/15/17 13:59 Mineral Oil (Fleet Oil Enema) 133 ml DAILY PRN [place] 12/16/16 14:15 01/15/17 14:14 12/16/16 20:32 133 ML Ondansetron HCl (Zofran Inj) 4 mg Q8H PRN IV 12/16/16 19:30 01/15/17 19:29 12/17/16 00:01 4 MG Levothyroxine Sodium 37.5 mcg/ Syringe 1.875 ml @ 2 mls/min DAILY@09 IV 12/18/16 09:00 01/17/17 08:59 Pantoprazole Sodium 40 mg/ Dextrose 100 ml @ 20 mls/hr Q5H IV 12/17/16 08:00 01/16/17 07:59 12/17/16 08:14 20 MLS/HR Sodium Chloride 1,000 ml @ 75 mls/hr [id number] IV 12/17/16 07:45 01/16/17 07:44 12/17/16 07:56 75 MLS/HR Lab Results: 12/17/16 04:09 12/17/16 07:38 12/17/16 04:09 Test 12/16/16 14:40 12/17/16 04:09 12/17/16 07:38 Urine Color YELLOW Urine Appearance CLEAR (CLEAR) Urine pH 5.0 (4.5-7.5) Urine Specific [place] 1.024 (1.000-1.030) Urine Protein NEG (NEG) Urine Glucose (UA) NEG (NEG) Urine Ketones NEG (NEG) Urine Occult Blood NEG (NEG) Urine Nitrite NEG (NEG) Urine Bilirubin NEG (NEG) Urine Urobilinogen NEG (NEG) Urine Leukocyte Esterase NEG (NEG) Urine WBC (Auto) 1-5 /hpf (0-5) Urine RBC (Auto) 0-4 /hpf (0-4) Urine Hyaline Casts (Auto) 1-5 /lpf (0-5) Urine Epithelial Cells (Auto) 5-10 /lpf (0-5) Urine Bacteria (Auto) NEG (NEG) Red Blood Count 3.03 M/uL (4.2-5.4) Mean Corpuscular Volume 92.7 fL (80-100) Mean Corpuscular Hemoglobin 29.0 pg (25-34) Mean Corpuscular Hemoglobin Concent 31.3 g/dl (32-36) RDW Standard Deviation 49.1 fL (36.4-46.3) RDW Coefficient of Variation 14.5 % (11.5-14.5) Mean Platelet Volume 8.3 fL (7.4-10.4) Anion Gap 9.0 mmol/L (3-11) Est Creatinine Clear Calc Drug Dose 14.5 ml/min Estimated GFR () 21.3 Estimated GFR (Non- 18.4 BUN/Creatinine Ratio 15.2 (10-20) Calcium Level 8.3 mg/dl (8.5-10.1) Magnesium Level 2.9 mg/dl (1.8-2.4) Total Bilirubin 1.4 mg/dl (0.2-1) Direct Bilirubin 0.5 mg/dl (0-0.2) Aspartate Amino Transf (AST/SGOT) 23 U/L (15-37) Alanine Aminotransferase (ALT/SGPT) 24 U/L (12-78) Alkaline Phosphatase 79 U/L (45-117) Total Protein 6.0 gm/dl (6.4-8.2) Albumin 3.3 gm/dl (3.4-5.0) Activated Partial Thromboplast Time 27.5 SECONDS (21.0-31.0) Partial Thromboplastin Ratio 1.1
[2016-12-17 14:23] LABS: HEMATOCRIT 25.8 % (37-47)
[2016-12-17] MEDS ORDERED: PROPOFOL IV EMULSION 10 MG/ML 20 ML VIAL IV ONE (15:45)
[2016-12-17] MEDS ORDERED: LIDOCAINE HCL 2% 2 ML VIAL (20MG/ML) ONE (15:45)
--- NOTE | 2016-12-17 15:50 | History & Physical Bridge Note ---
H&P Re-Evaluation Bridge Note: I have examined the patient, reviewed the History & Physical and in the interval since the performance of the History & Physical I have noted the following changes of clinical significance: No changes noted
--- NOTE | 2016-12-17 16:20 | GI REPORT ---
Procedure Date: 12/17/2016 3:54 PM Procedure: Upper GI endoscopy Indications: Coffee-ground emesis Medicines: Propofol per Anesthesia Complications: No immediate complications. Estimated Blood Loss: Estimated blood loss: none. Estimated blood loss: none. Procedure: Pre-Anesthesia Assessment: - Prior to the procedure, a History and Physical was performed, and patient medications and allergies were reviewed. The patient's tolerance of previous anesthesia was also reviewed. The risks and benefits of the procedure and the sedation options and risks were discussed with the patient. All questions were answered, and informed consent was obtained. Prior Anticoagulants: The patient has taken no previous anticoagulant or antiplatelet agents. ASA Grade Assessment: III - A patient with severe systemic disease. After reviewing the risks and benefits, the patient was deemed in satisfactory condition to undergo the procedure. After obtaining informed consent, the endoscope was passed under direct vision. Throughout the procedure, the patient's blood pressure, pulse, and oxygen saturations were monitored continuously. The scope was introduced through the mouth, and advanced to the third part of duodenum. The upper GI endoscopy was accomplished without difficulty. The patient tolerated the procedure well. Findings: The upper third of the esophagus and middle third of the esophagus were normal. LA Grade C (one or more mucosal breaks continuous between tops of 2 or more mucosal folds, less than 75% circumference) esophagitis with no bleeding was found 32 cm from the incisors. A medium-sized hiatus hernia was found. The proximal extent of the gastric folds (end of tubular esophagus) was 33 cm from the incisors. The hiatal narrowing was 37 cm from the incisors. The Z-line was 33 cm from the incisors. A few 1 mm sessile polyps with no bleeding and no stigmata of recent bleeding were found in the gastric body. The exam of the stomach was otherwise normal. The duodenal bulb, first part of the duodenum, 2nd part of the duodenum and 3rd part of the duodenum were normal. Retained gastric contents are not identified on this exam. Impression: - Normal upper third of esophagus and middle third of esophagus. - LA Grade C reflux esophagitis. - Medium-sized hiatus hernia. - A few gastric polyps. - Normal duodenal bulb, first part of the duodenum, 2nd part of the duodenum and 3rd part of the duodenum. - No specimens collected. Recommendation: - [facility] patient to [facility] care. - Advance diet as tolerated. - Continue enema/suppositories for addition retrograde prepping. Would check flat plate tomorrow and if accetpable, can consider Miralax prep from above. Decision for ERCP in progress. MD Ramírez Botello MD 12/17/2016 4:20:32 PM This report has been signed electronically. Note Initiated On: 12/17/2016 3:54 PM I attest to the content of the Intraoperative Record and orders documented therein, exceptions below
[2016-12-17] MEDS ORDERED: SOAP SUDS ENEMA PR STA (16:50)
--- NOTE | 2016-12-17 16:53 | Anesthesiology Progress Note ---
Anesthesia Post Op Note Date & Time Dec 17, 2016 at 16:52 Vital Signs Pain Intensity: 0 Vital Signs Past 12 Hours Date Time Temp Pulse Resp B/P (MAP) Pulse Ox O2 Delivery O2 Flow Rate FiO2 12/17/16 16:38 84 16 143/74 99 Nasal Cannula 2 12/17/16 16:28 88 16 142/70 (94) 98 Nasal Cannula 2 12/17/16 16:18 80 16 146/70 98 Nasal Cannula 2 12/17/16 15:16 37 85 20 146/73 (97) 98 Room Air 12/17/16 10:16 Nasal Cannula 4.0 12/17/16 07:57 36.7 85 20 132/57 (82) 100 4.0 Notes Mental Status: alert / awake / arousable, participated in evaluation Pt Amnestic to Procedure: Yes Nausea / Vomiting: adequately controlled Pain: adequately controlled Airway Patency, RR, SpO2: stable & adequate BP & HR: stable & adequate Hydration State: stable & adequate Anesthetic Complications: no major complications apparent
[2016-12-17 17:00] VITALS: O2SAT 100
[2016-12-17] MEDS ORDERED: NURSING VERBAL MED ORDER ONE (19:15)
[2016-12-17] MEDS: HEPARIN 25,000 UNIT/500ML D5W 500 ML IV PRN (19:32)
--- NOTE | 2016-12-17 20:06 | PROGRESS NOTE ---
DATE: 12/17/2016 PROBLEM LIST: Includes: 1. Hypoxia. 2. DVT. SUBJECTIVE: The patient reports that from a pulmonary standpoint she is doing well. Today she has no pulmonary complaints. She has no cough, no wheeze, no shortness of breath either at rest or with exertion. No chest congestion or tightness. Unfortunately, overnight she did have some emesis with coffee-ground appearance to it. She does have a history of ulcer and is scheduled for an EGD this afternoon. Her anticoagulation was stopped at this time. She denies any other problems. No abdominal pain, no nausea or vomiting other than last night. No swelling in the extremities. OBJECTIVE: GENERAL: The patient is an 86-year-old female lying in bed in no acute distress. She is alert and oriented x3. Mood is good. Affect is good. VITAL SIGNS: Temp 36.7, pulse 85, respirations 20, blood pressure 132/57, pulse ox 100% on 4 liters. HEENT: Normocephalic, atraumatic. Pupils equal, round and reactive to light and accommodation. Extraocular movements are intact. Maceo moist gingival and buccal mucosa. NECK: Supple. There is no mass. No adenopathy. No bruit. CHEST: Diminished but clear. There is no wheeze, rales or rhonchi noted. CARDIOVASCULAR: Regular rate and rhythm. She does have a 3/6 systolic murmur. No gallops or rubs. ABDOMEN: Bowel sounds are present throughout. Abdomen is distended, it is slightly tender to palpation. EXTREMITIES: Pitting edema on the left, right nonpitting, nontender. NEUROLOGIC: Cranial nerves II through XII are intact. No focal deficits noted. LABORATORY DATA: White count 15,000, H&H 8.8 and 28.1, platelet count 215,000. BUN 35, creatinine 2.3. No new imaging data. IMPRESSION: An 86-year-old female with DVT who unfortunately had hematemesis overnight. The patient is having EGD later today, if ulceration is found then the patient would need to have IVC filter placed due to not being able to continue on anticoagulation. Although from pulmonary standpoint the patient is doing well. Her hypoxemia has improved. She has shown improvement through her hospitalization. At this point, will continue to follow the patient. Patient's and case reviewed and plan agreed upon. [facility]
[2016-12-17] MEDS: PANTOprazole SOD 40 MG TAB PO SCH (20:41)
[2016-12-17] MEDS ORDERED: MINERAL OIL ENEMA 133 ML BTL PR ONE (21:00)
[2016-12-17] MEDS ORDERED: BISACODYL 10 MG SUPP PR SCH (22:00)
[2016-12-18 00:26] VITALS: BP 156/96; PULSE 80; TEMP 36.8; O2SAT 100
[2016-12-18 02:16] LABS: PARTIAL THROMBOPLASTIN RATIO 2.4
[2016-12-18 05:52] LABS: HEMATOCRIT 30.4 % (37-47); MEAN CELL VOLUME 92.7 fL (80-100); MEAN CORPUSCULAR HEMOGLOBIN 28.4 pg (25-34); MEAN CORPUSCULAR HGB CONC 30.6 g/dl (32-36); MEAN PLATELET VOLUME 8.6 fL (7.4-10.4); PLATELET COUNT 180 K/uL (130-400); RED BLOOD COUNT 3.28 M/uL (4.2-5.4); WHITE BLOOD COUNT 15.76 K/uL (4.8-10.8)
[2016-12-18] MEDS: LEVOTHYROXINE 75 MCG TAB PO SCH (06:09)
[2016-12-18 06:11] LABS: BASO % 0.1 %; BASO ABS # 0.01 K/uL (0-0.2); COMPLETE YES; IG% 0.4 %; LYMPH % 11.3 %; LYMPH ABS # 1.78 K/uL (1.2-3.4); MONO % 3.9 %; NEUT % 84.3 %
[2016-12-18 06:24] LABS: BUN/CREATININE RATIO 17.4 (10-20); CALCIUM 7.1 mg/dl (8.5-10.1); CREATININE 2.1 mg/dl (0.60-1.20); MAGNESIUM 2.8 mg/dl (1.8-2.4); POTASSIUM 4.2 mmol/L (3.5-5.1)
[2016-12-18 07:19] VITALS: BP 127/68; PULSE 79; TEMP 36.3; O2SAT 100
--- NOTE | 2016-12-18 07:22 | DIAGNOSTIC IMAGING REPORT ---
ULTRASOUND KIDNEYS AND BLADDER CLINICAL HISTORY: Acute renal insufficiency. COMPARISON STUDY: Abdominal CT dated 12/14/2016. TECHNIQUE: Real-time, grayscale, and color flow sonography of the kidneys and bladder is performed. Images are reviewed in the transverse and longitudinal planes. FINDINGS: Kidneys: The kidneys are atrophic and echogenic consistent with medical renal disease. The right kidney measures 8.4 cm in length and the left kidney measures 9.4 cm in length. There is mild to moderate left hydroureteronephrosis. This was also seen on the 12/14/2016 CT scan. There is no right-sided hydronephrosis. No shadowing renal calculi are identified. There is no sonographic evidence of contour deforming renal mass lesion. No perinephric fluid is identified. Bladder: Debris is present within the bladder. The bladder is otherwise grossly normal in appearance. Ureteral jets were not seen. IMPRESSION: 1. The kidneys are atrophic and echogenic consistent with medical renal disease. 2. There is mild to moderate left hydroureteronephrosis. This was also seen on the 12/14/[address] scan. 3. There is debris present within the bladder lumen. Correlation with urinalysis will be required. Electronically signed by: Yimi Lo M.D. 12/18/2016 7:20 AM Dictated Date/Time: 12/18/2016 7:18 AM
[2016-12-18] MEDS ORDERED: NURSING VERBAL MED ORDER ONE ×2 (07:30→15:15)
[2016-12-18] MEDS ORDERED: LEVOTHYROXINE SODIUM INJ 37.5 MCG in SYRINGE 0 ML IV SCH (09:00)
[2016-12-18] MEDS: CYANOCOBALAMIN 500 MCG TAB (VIT B-12) PO SCH (09:09)
[2016-12-18] MEDS: DILTIAZEM HCL 120 MG EXT REL CAP PO SCH (09:10)
[2016-12-18] MEDS: DOCUSATE SODIUM 100 MG CAP PO SCH ×2 (09:10→20:38)
[2016-12-18] MEDS: PANTOprazole SOD 40 MG TAB PO SCH ×2 (09:10→20:38)
[2016-12-18] MEDS: CHOLECALCIFEROL 1000 INTER.UNIT TAB PO SCH (09:10)
[2016-12-18] MEDS: NYSTATIN SUSP 500,000 U/5 ML UDC PO SCH ×4 (09:10→20:38)
[2016-12-18] MEDS: MUPIROCIN 2% OINT 22 GM TUBE EXT SCH (09:11)
--- NOTE | 2016-12-18 11:22 | Nephrology Progress Note ---
Nephrology Progress Note Date of Service Dec 18, 2016. Chief Complaint f/u for acute kidney injury with history of chronic kidney disease. Ion Tavares was seen and examined in her room this morning. She is overall feeling a lot better, sitting up in the bed awake alert however still feels somewhat tired. Had EGD yesterday showing esophagitis, HH and gastric polyp. Hb stable. Cr slightly improved to 2.1 <--2.3. BP stable. Review of Systems A complete review of systems was performed. Pertinent positives are noted above. All other systems are negative. Vital Signs Last 8 Hrs Date Time Temp Pulse Resp B/P (MAP) Pulse Ox O2 Delivery O2 Flow Rate FiO2 12/18/16 07:19 36.3 79 16 127/68 (87) 100 Nasal Cannula 2.0 Last Recorded Weight Weight (Kilograms): 54.500 Physical Exam GENERAL: elderly female, AAA x 3, not in any distress. NECK: Supple, no JVD. RESPIRATORY: Normal breathing efforts, no accessory muscle use, clear to auscultation bilaterally, no wheezes or rales. CARDIOVASCULAR: S1, S2 normal, rate rhythm regular. EXTREMITY: No lower extremity edema NEURO: speech fluent. PSYCHIATRY: Normal mood and judgment Family History Heart disease Social History Drug Use: none Marital Status: Housing Status: lives with family 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 Laboratory Results Past 24 Hours 12/17/16 14:10 12/18/16 05:36 Red Blood Count 3.28, Mean Corpuscular Volume 92.7, Mean Corpuscular Hemoglobin 28.4, Mean Corpuscular Hemoglobin Concent 30.6, Mean Platelet Volume 8.6, Neutrophils (%) (Auto) 84.3, Lymphocytes (%) (Auto) 11.3, Monocytes (%) (Auto) 3.9, Eosinophils (%) (Auto) 0.0, Basophils (%) (Auto) 0.1, Neutrophils # (Auto) 13.30, Lymphocytes # (Auto) 1.78, Monocytes # (Auto) 0.61, Eosinophils # (Auto) 0.00, Basophils # (Auto) 0.01 12/18/16 05:36 Test 12/17/16 17:40 12/18/16 01:35 12/18/16 05:26 12/18/16 05:36 Urine Osmolality 349 mOms/kg (500-800) Activated Partial Thromboplast Time 62.2 SECONDS (21.0-31.0) 52.7 SECONDS (21.0-31.0) Partial Thromboplastin Ratio 2.4 2.0 White Blood Count 15.76 K/uL (4.8-10.8) Red Blood Count 3.28 M/uL (4.2-5.4) Hemoglobin 9.3 g/dL (12.0-16.0) Hematocrit 30.4 % (37-47) Mean Corpuscular Volume 92.7 fL (80-100) Mean Corpuscular Hemoglobin 28.4 pg (25-34) Mean Corpuscular Hemoglobin Concent 30.6 g/dl (32-36) Platelet Count 180 K/uL (130-400) Mean Platelet Volume 8.6 fL (7.4-10.4) Neutrophils (%) (Auto) 84.3 % Lymphocytes (%) (Auto) 11.3 % Monocytes (%) (Auto) 3.9 % Eosinophils (%) (Auto) 0.0 % Basophils (%) (Auto) 0.1 % Neutrophils # (Auto) 13.30 K/uL (1.4-6.5) Lymphocytes # (Auto) 1.78 K/uL (1.2-3.4) Monocytes # (Auto) 0.61 K/uL (0.11-0.59) Eosinophils # (Auto) 0.00 K/uL (0-0.5) Basophils # (Auto) 0.01 K/uL (0-0.2) RDW Standard Deviation 48.8 fL (36.4-46.3) RDW Coefficient of Variation 14.3 % (11.5-14.5) Immature Granulocyte % (Auto) 0.4 % Immature Granulocyte # (Auto) 0.06 K/uL (0.00-0.02) Anion Gap 10.0 mmol/L (3-11) Est Creatinine Clear Calc Drug Dose 15.9 ml/min Estimated GFR () 23.8 Estimated GFR (Non- 20.5 BUN/Creatinine Ratio 17.4 (10-20) Calcium Level 7.1 mg/dl (8.5-10.1) Magnesium Level 2.8 mg/dl (1.8-2.4) Allergies Coded Allergies: Doxycycline (Verified Allergy, Intermediate, RASH, 6/6/17) Trimethoprim (Verified Allergy, Intermediate, RASH, 12/15/16) Adhesives (Verified Allergy, Unknown, HAD RXN TO [employer] PATCHES, ) Amoxicillin (Verified Allergy, Unknown, RASH, 12/15/16) Atorvastatin (Verified Allergy, Unknown, UNKNOWN, 12/15/16) Carbamazepine (Verified Allergy, Unknown, 12/14/16) Hydantoins (Verified Allergy, Unknown, 12/14/16) Levofloxacin (Verified Allergy, Unknown, UNKNOWN, 12/15/16) Penicillins (Verified Allergy, Unknown, AMOXIL,HAS TOLERATED CEPHS, 12/15/16 ) has tolerated cefepime and ceftriaxone on previous admissions Phenytoin (Verified Allergy, Unknown, 12/14/16) Sulfamethoxazole w/Trimethoprim (Unverified Allergy, Unknown, VASCULITIS, 12/14/16) Medications Current Inpatient Medications Medications (Trade) Dose Ordered Sig/Phillip Route Start Time Stop Time Status Last Admin Dose Admin Ioversol (Optiray 320) 125 ml UD PRN IV 12/14/16 10:15 12/18/16 10:14 Acetaminophen (Tylenol Tab) 650 mg Q4H PRN PO 12/14/16 17:00 01/13/17 16:59 12/15/16 23:46 650 MG Cholecalciferol (Vitamin D Tab) 2,000 inter.unit DAILY PO 12/15/16 08:00 01/14/17 08:59 12/16/16 07:29 2,000 INTER.UNIT Cyanocobalamin (Vitamin B-12 Tab) 1,000 mcg DAILY PO 12/15/16 08:00 01/14/17 08:59 12/16/16 07:29 1,000 MCG Diltiazem HCl (TIAzac CAP) 240 mg DAILY PO 12/15/16 08:00 01/14/17 08:59 12/16/16 07:29 240 MG Docusate Sodium (coLACE CAP) 100 mg BID PO 12/14/16 20:00 01/13/17 20:59 12/17/16 20:40 100 MG Levothyroxine Sodium (Synthroid Tab) 75 mcg DAILYBB PO 12/15/16 06:30 01/14/17 06:29 Future Hold 12/17/16 06:16 75 MCG Nystatin (Mycostatin Susp) 5 ml QID PO 12/14/16 19:00 12/24/16 18:59 12/17/16 20:40 5 ML Pravastatin Sodium (Pravachol Tab) 20 mg HS PO 12/14/16 21:00 01/13/17 20:59 12/16/16 21:11 20 MG Mupirocin (Bactroban 2% Oint) 1 appln DAILY EXT 12/15/16 08:00 01/14/17 07:59 12/17/16 07:57 1 APPLN Heparin Sodium/ Dextrose 500 ml @ 13 mls/hr Q24H PRN IV 12/15/16 01:00 01/14/17 00:59 12/17/16 19:32 13 MLS/HR Polyethylene (Miralax Powder Packet) 17 gm BID PO 12/15/16 20:00 01/14/17 08:59 Future Hold 12/16/16 07:28 17 GM Morphine Sulfate (MoRPHine SULFATE INJ) 2 mg Q4H PRN IV 12/15/16 12:00 12/29/16 11:59 Miscellaneous (Soap Suds Enema) 1 ea DAILY PRN [place] 12/16/16 14:00 01/15/17 13:59 12/17/16 12:09 1 EA Mineral Oil (Fleet Oil Enema) 133 ml DAILY PRN [place] 12/16/16 14:15 01/15/17 14:14 12/16/16 20:32 133 ML Ondansetron HCl (Zofran Inj) 4 mg Q8H PRN IV 12/16/16 19:30 01/15/17 19:29 12/17/16 19:22 4 MG Sodium Chloride 1,000 ml @ 75 mls/hr [id number] IV 12/17/16 07:45 01/16/17 07:44 Future Hold 12/17/16 21:34 75 MLS/HR Pantoprazole Sodium (Protonix Tab) 40 mg BID PO 12/17/16 20:00 01/16/17 19:59 12/17/16 20:41 40 MG Levothyroxine Sodium (Synthroid Tab) 75 mcg DAILYBB PO 12/18/16 06:30 01/17/17 06:29 12/18/16 06:09 75 MCG Bisacodyl (Dulcolax Supp) 10 mg HS [place] 12/17/16 22:00 01/13/17 16:59 12/17/16 21:35 10 MG Impression (1) Hyponatremia (2) ANA PAULA (acute kidney injury) (3) Hypertension Nos (4) Anemia (5) Obstipation Anusha is a 86-year-old female with the complicated medical history admitted to the hospital with constipation and fecal impaction requiring manual disimpaction. On admission creatinine was at baseline of 1.6, developed acute kidney injury with creatinine peaked to 2.4 which slightly improved to 2.1 this am. She has been non oliguria. Prior renal USG showed chronic right- sided mild hydronephrosis, CT abdomen pelvis on admission showing left-sided moderate hydronephrosis and repeat USG on 12/17/16 showed left sided moderate hydro but no rt hydro. Patient did not tolerate Hu catheter which was removed. Developed hyponatremia with high urine osm suggestive of high ADH state. Currently with multiple medical problem including constipation, anemia with possible UGI bleed, had EGD on 12/17/16 showing showing esophagitis, HH and gastric polyp. FOBT negative but with severe constipation and anemia concern for colonic pathology remains. Found to have obstructed cystic duct. On admission she was also found to have acute lower extremity DVT and started on heparin drip. Eventually may have to get IVC filter Has baseline stage 3 chronic kidney disease creating 1.4-1.6, prior history of nephrotic syndrome and dialysis requiring acute kidney injury in 2007 with recovery,history of seizure disorder, severe aortic stenosis and history of pulmonary embolism before. Recommendations --renal function started to improve, ANA PAULA most likely hemodynamically mediated. --S Na slightly improved to 131 but urine osm>300 --discontinue IV fluid --restrict free water to less than 1500 mL --encourage high protein diet to improve free water clearance --liberalize salt in diet --avoid nephrotoxic meds -- discussed with her son Travis over telephone and give him the update regarding the current status of her kidney function ). Will follow
--- NOTE | 2016-12-18 13:52 | PROGRESS NOTE ---
DATE: 12/18/2016 SUBJECTIVE: The patient reports no complaints. She is continuing to take clear liquids. OBJECTIVE: VITAL SIGNS: Show her to be afebrile, pulse of 80, blood pressure is 127/68, O2 saturations 100% on 2 liters nasal oxygen. LABORATORY: Shows hemoglobin of 9.3, platelets are 180,000, white count 15.76, creatinine is 2.1, BUN 37. Sodium 131. The patient has a common duct stone and severe constipation. IMPRESSION: The patient will be prepped over the weekend, clear liquid diet all weekend, Colyte 2 liters on Wednesday, 2 liters on Wednesday and a Fleet Enema on Wednesday with plans to proceed with colonoscopy Wednesday afternoon. If there are any problems for the weekend I will be covering.
[2016-12-18] MEDS ORDERED: BISACODYL 10 MG SUPP PR PRN (15:30)
--- NOTE | 2016-12-18 15:57 | Pulmonology Progress Note ---
Pulmonary Progress Note Date of Service Dec 18, 2016. Attending Dr. La Subjective Patient notes overall improvement in her respiratory status post currently in, what she was receiving an enema at the time of the interview. Objective Patient able to complete full sentences not using accessory muscles but no comfortable was once again she was receiving an enema at the time of interview. Vital signs: Stable on 2 L nasal cannula Respiratory: Mild rhonchi bilaterally Cardiac: S1-S2 distant heart sounds Patient being prepped for colonoscopy on Wednesday WBC count: 15.76K APTT: 52.7 BUN/creatinine: 37/2.10 Total bilirubin: 1.4 Direct bilirubin: 0.5 Total protein: 6.0 Albumin: 3.3 Anti-proteinase 3: None detected Antimyeloperoxidase: Undetected ANCA: Negative Glomerular basement membrane antibody: Undetected EGD performed on 12/17/2016 Lower 1/3 of the esophagus notable with esophagitis but no active bleeding Medium-size hiatal hernia A few 1 mm sessile polyps with no active bleeding Assessment & Plan 86-year-old female admitted with shortness of breath, fecal impaction and choledocholithiasis: #1 Hypoxia: Patient's hypoxemia slowly improving as well as clinical respiratory status. I do believe that the patient's respiratory insufficiency is combination of her aortic stenosis and fecal impaction. #2 DVT: Currently on heparin drip. If workup for GI bleeding is within normal limits I suggest we switch to Eliquis for long-term outpatient DVT treatment. #3 GI bleed: Patient undergoing bowel prep for fecal impaction as well as preparation for colonoscopy possibly Wednesday. #4 sign off: At this time pulmonary service will sign off. Data Medications: Current Inpatient Medications Medications (Trade) Dose Ordered Sig/Phillip Route Start Time Stop Time Status Last Admin Dose Admin Acetaminophen (Tylenol Tab) 650 mg Q4H PRN PO 12/14/16 17:00 01/13/17 16:59 12/15/16 23:46 650 MG Cholecalciferol (Vitamin D Tab) 2,000 inter.unit DAILY PO 12/15/16 08:00 01/14/17 08:59 12/18/16 09:10 2,000 INTER.UNIT Cyanocobalamin (Vitamin B-12 Tab) 1,000 mcg DAILY PO 12/15/16 08:00 01/14/17 08:59 12/18/16 09:09 1,000 MCG Diltiazem HCl (TIAzac CAP) 240 mg DAILY PO 12/15/16 08:00 01/14/17 08:59 12/18/16 09:10 240 MG Docusate Sodium (coLACE CAP) 100 mg BID PO 12/14/16 20:00 01/13/17 20:59 12/18/16 09:10 100 MG Levothyroxine Sodium (Synthroid Tab) 75 mcg DAILYBB PO 12/15/16 06:30 01/14/17 06:29 Future Hold 12/17/16 06:16 75 MCG Nystatin (Mycostatin Susp) 5 ml QID PO 12/14/16 19:00 12/24/16 18:59 12/18/16 12:43 5 ML Pravastatin Sodium (Pravachol Tab) 20 mg HS PO 12/14/16 21:00 01/13/17 20:59 12/16/16 21:11 20 MG Mupirocin (Bactroban 2% Oint) 1 appln DAILY EXT 12/15/16 08:00 01/14/17 07:59 12/18/16 09:11 1 APPLN Heparin Sodium/ Dextrose 500 ml @ 13 mls/hr Q24H PRN IV 12/15/16 01:00 01/14/17 00:59 12/17/16 19:32 13 MLS/HR Polyethylene (Miralax Powder Packet) 17 gm BID PO 12/15/16 20:00 01/14/17 08:59 Future Hold 12/16/16 07:28 17 GM Morphine Sulfate (MoRPHine SULFATE INJ) 2 mg Q4H PRN IV 12/15/16 12:00 12/29/16 11:59 Miscellaneous (Soap Suds Enema) 1 ea DAILY PRN [place] 12/16/16 14:00 01/15/17 13:59 12/17/16 12:09 1 EA Mineral Oil (Fleet Oil Enema) 133 ml DAILY PRN NE 12/16/16 14:15 01/15/17 14:14 12/16/16 20:32 133 ML Ondansetron HCl (Zofran Inj) 4 mg Q8H PRN IV 12/16/16 19:30 01/15/17 19:29 12/17/16 19:22 4 MG Sodium Chloride 1,000 ml @ 75 mls/hr [id number] IV 12/17/16 07:45 01/16/17 07:44 Future Hold 12/17/16 21:34 75 MLS/HR Pantoprazole Sodium (Protonix Tab) 40 mg BID PO 12/17/16 20:00 01/16/17 19:59 12/18/16 09:10 40 MG Levothyroxine Sodium (Synthroid Tab) 75 mcg DAILYBB PO 12/18/16 06:30 01/17/17 06:29 12/18/16 06:09 75 MCG Enteral Nutritional Formula (Boost Breeze Nutritional Drink) 0.5 box TID PO 12/18/16 14:00 01/17/17 13:59 Sodium Biphosphate/ Sodium Phosphate (Fleet Enema) 132 ml TODAY@0800 ONCE NE 12/21/16 08:00 12/21/16 08:01 Polyethylene Glycol/ Electrolytes (Golytely Soln) 8 dose DAILY@0800 PO 12/19/16 08:00 12/20/16 08:01 Bisacodyl (Dulcolax Supp) 10 mg HS PRN NE 12/18/16 15:30 01/13/17 16:59 I & O: 24-Hour Column 12/19/16 08:00 Intake Total 1202 ml Output Total 0 ml Balance 1202 ml Vital Signs: Date Time Temp Pulse Resp B/P (MAP) Pulse Ox O2 Delivery O2 Flow Rate FiO2 12/18/16 08:15 Nasal Cannula 2.0 12/18/16 07:19 36.3 79 16 127/68 (87) 100 Nasal Cannula 2.0 12/18/16 00:26 36.8 80 16 156/96 (116) 100 Nasal Cannula 4.0 12/18/16 00:00 Nasal Cannula 2.0 12/17/16 17:00 100 Nasal Cannula 2.0 12/17/16 16:48 82 16 136/72 (93) 100 Nasal Cannula 2 12/17/16 16:38 84 16 143/74 99 Nasal Cannula 2 12/17/16 16:28 88 16 142/70 (94) 98 Nasal Cannula 2 12/17/16 16:18 80 16 146/70 98 Nasal Cannula 2 Laboratory Results: Last 24 Hours Test 12/17/16 17:40 12/18/16 01:35 12/18/16 05:26 12/18/16 05:36 Urine Osmolality 349 mOms/kg Activated Partial Thromboplast Time 62.2 SECONDS 52.7 SECONDS Partial Thromboplastin Ratio 2.4 2.0 White Blood Count 15.76 K/uL Red Blood Count 3.28 M/uL Hemoglobin 9.3 g/dL Hematocrit 30.4 % Mean Corpuscular Volume 92.7 fL Mean Corpuscular Hemoglobin 28.4 pg Mean Corpuscular Hemoglobin Concent 30.6 g/dl Platelet Count 180 K/uL Mean Platelet Volume 8.6 fL Neutrophils (%) (Auto) 84.3 % Lymphocytes (%) (Auto) 11.3 % Monocytes (%) (Auto) 3.9 % Eosinophils (%) (Auto) 0.0 % Basophils (%) (Auto) 0.1 % Neutrophils # (Auto) 13.30 K/uL Lymphocytes # (Auto) 1.78 K/uL Monocytes # (Auto) 0.61 K/uL Eosinophils # (Auto) 0.00 K/uL Basophils # (Auto) 0.01 K/uL RDW Standard Deviation 48.8 fL RDW Coefficient of Variation 14.3 % Immature Granulocyte % (Auto) 0.4 % Immature Granulocyte # (Auto) 0.06 K/uL Sodium Level 131 mmol/L Potassium Level 4.2 mmol/L Chloride Level 96 mmol/L Carbon Dioxide Level 25 mmol/L Anion Gap 10.0 mmol/L Blood Urea Nitrogen 37 mg/dl Creatinine 2.10 mg/dl Est Creatinine Clear Calc Drug Dose 15.9 ml/min Estimated GFR () 23.8 Estimated GFR (Non- 20.5 BUN/Creatinine Ratio 17.4 Random Glucose 93 mg/dl Calcium Level 7.1 mg/dl Magnesium Level 2.8 mg/dl
[2016-12-18 16:04] VITALS: BP 118/59; PULSE 76; TEMP 36.4; O2SAT 98
[2016-12-18] MEDS: BOOST BREEZE NUTRITION DRINK 1 BOX PO SCH ×2 (17:06→20:38)
--- NOTE | 2016-12-18 17:16 | Hematology/Oncology Prog Note ---
Hematology/Onc Progress Note Date of Service Dec 18, 2016. Diagnoses Anemia GI Bleed Fecal impaction DVT Medications Medications Administered Medications (Trade) Dose Ordered Sig/Phillip Route Start Time Stop Time Status Last Admin Dose Admin Magnesium Citrate (Citrate Of Magnesia Soln) 150 ml NOW STAT PO 12/14/16 13:39 12/14/16 13:41 DC 12/14/16 13:59 150 ML Miscellaneous (Soap Suds Enema) 1 ea NOW STAT CO 12/14/16 13:39 12/14/16 13:41 DC 12/14/16 13:39 1 EA Metoclopramide HCl (Reglan Inj) 10 mg NOW STAT IV 12/14/16 15:15 12/14/16 15:16 DC 12/14/16 15:21 10 MG Sodium Chloride 500 ml @ 999 mls/hr Q31M STAT IV 12/14/16 15:15 12/14/16 15:45 DC 12/14/16 15:21 999 MLS/HR Acetaminophen (Tylenol Tab) 650 mg Q4H PRN PO 12/14/16 17:00 01/13/17 16:59 12/15/16 23:46 650 MG Cholecalciferol (Vitamin D Tab) 2,000 inter.unit DAILY PO 12/15/16 08:00 01/14/17 08:59 12/18/16 09:10 2,000 INTER.UNIT Cyanocobalamin (Vitamin B-12 Tab) 1,000 mcg DAILY PO 12/15/16 08:00 01/14/17 08:59 12/18/16 09:09 1,000 MCG Diltiazem HCl (TIAzac CAP) 240 mg DAILY PO 12/15/16 08:00 01/14/17 08:59 12/18/16 09:10 240 MG Docusate Sodium (coLACE CAP) 100 mg BID PO 12/14/16 20:00 01/13/17 20:59 12/18/16 09:10 100 MG Levothyroxine Sodium (Synthroid Tab) 75 mcg DAILYBB PO 12/15/16 06:30 01/14/17 06:29 Future Hold 12/17/16 06:16 75 MCG Nystatin (Mycostatin Susp) 5 ml QID PO 12/14/16 19:00 12/24/16 18:59 12/18/16 12:43 5 ML Pravastatin Sodium (Pravachol Tab) 20 mg HS PO 12/14/16 21:00 01/13/17 20:59 12/16/16 21:11 20 MG Prednisone (PredniSONE TAB) 20 mg QAM PO 12/15/16 08:00 12/16/16 16:05 DC 12/16/16 07:29 20 MG Mupirocin (Bactroban 2% Oint) 1 appln DAILY EXT 12/15/16 08:00 01/14/17 07:59 12/18/16 09:11 1 APPLN Psyllium Hydrophilic Mucilloid (Metamucil Powder) 1 pkt DAILY PO 12/15/16 08:00 12/16/16 14:03 DC 12/16/16 07:29 1 PKT Pantoprazole Sodium (Protonix Tab) 40 mg BID PO 12/14/16 20:00 12/17/16 07:21 DC 12/16/16 21:11 40 MG Sodium Chloride 1,000 ml @ 100 mls/hr Q10H IV 12/14/16 17:00 12/16/16 14:03 DC 12/14/16 19:23 100 MLS/HR Polyethylene (Miralax Powder Packet) 17 gm QAM PO 12/15/16 08:00 12/15/16 11:09 DC 12/15/16 10:27 17 GM Bisacodyl (Dulcolax Supp) 10 mg NOW STAT CO 12/14/16 16:56 12/14/16 17:35 DC 12/14/16 19:20 10 MG Furosemide (Lasix Tab) 20 mg NOW ONCE PO 12/14/16 22:30 12/14/16 22:31 DC 12/14/16 22:40 20 MG Heparin Sodium/ Dextrose 500 ml @ 13 mls/hr Q24H PRN IV 12/15/16 01:00 01/14/17 00:59 12/17/16 19:32 13 MLS/HR Morphine Sulfate (MoRPHine SULFATE INJ) 2 mg STK-MED ONCE .ROUTE 12/15/16 09:22 12/15/16 09:23 DC 12/15/16 09:31 2 MG Furosemide (Lasix Tab) 20 mg QAM PO 12/16/16 08:00 12/17/16 11:11 DC 12/16/16 07:29 20 MG Furosemide (Lasix Tab) 20 mg 1115 ONCE PO 12/15/16 11:15 12/15/16 11:16 DC 12/15/16 11:20 20 MG Polyethylene (Miralax Powder Packet) 17 gm BID PO 12/15/16 20:00 01/14/17 08:59 Future Hold 12/16/16 07:28 17 GM Miscellaneous Medication (Milk And Molasses Enema) 1 ea TODAY@1400 CO 12/16/16 14:00 12/16/16 16:00 DC 12/16/16 14:00 1 EA Miscellaneous (Soap Suds Enema) 1 ea DAILY PRN CO 12/16/16 14:00 01/15/17 13:59 12/17/16 12:09 1 EA Mineral Oil (Fleet Oil Enema) 133 ml DAILY PRN CO 12/16/16 14:15 01/15/17 14:14 12/16/16 20:32 133 ML Ondansetron HCl (Zofran Inj) 4 mg Q8H PRN IV 12/16/16 19:30 01/15/17 19:29 12/17/16 19:22 4 MG Pantoprazole Sodium 80 mg/ Dextrose 120 ml @ 480 mls/hr NOW ONCE IV 12/17/16 07:45 12/17/16 07:59 DC 12/17/16 07:55 480 MLS/HR Pantoprazole Sodium 40 mg/ Dextrose 100 ml @ 20 mls/hr Q5H IV 12/17/16 08:00 12/17/16 17:32 DC 12/17/16 12:17 20 MLS/HR Sodium Chloride 1,000 ml @ 75 mls/hr [id number] IV 12/17/16 07:45 01/16/17 07:44 Future Hold 12/17/16 21:34 75 MLS/HR Miscellaneous (Soap Suds Enema) 1 ea ONE STAT CO 12/17/16 16:50 12/17/16 17:17 DC 12/17/16 16:50 1 EA Mineral Oil (Fleet Oil Enema) 133 ml ONE ONCE CO 12/17/16 21:00 12/17/16 21:01 DC 12/17/16 20:40 133 ML Pantoprazole Sodium (Protonix Tab) 40 mg BID PO 12/17/16 20:00 01/16/17 19:59 12/18/16 09:10 40 MG Levothyroxine Sodium (Synthroid Tab) 75 mcg DAILYBB PO 12/18/16 06:30 01/17/17 06:29 12/18/16 06:09 75 MCG Bisacodyl (Dulcolax Supp) 10 mg HS CO 12/17/16 22:00 12/18/16 15:18 DC 12/17/16 21:35 10 MG Subjective She had a questionable upper GI bleed (possible coffee-ground emesis) overnight. EGD today did not reveal any evidence of active bleeding. She continues a bowel prep to relieve her fecal impaction and in preparation for a possible colonoscopy. Her counts are otherwise stable and she has no new complaints today. Her heparin was temporarily held due to the bleed, but was restarted once the EGD was negative. Review of Systems: Constitutional: No fever, No chills ENT: No unusual epistaxis Respiratory: No cough, No shortness of breath Cardiovascular: No chest pain Abdomen: + constipation, No pain, No nausea Female : No dysuria Heme: No abnormal bleeding/bruising Vital Signs Vital Signs Past 12 Hours Date Time Temp Pulse Resp B/P (MAP) Pulse Ox O2 Delivery O2 Flow Rate FiO2 12/18/16 16:26 Nasal Cannula 2.0 12/18/16 16:04 36.4 76 18 118/59 (78) 98 Nasal Cannula 2.0 12/18/16 08:15 Nasal Cannula 2.0 12/18/16 07:19 36.3 79 16 127/68 (87) 100 Nasal Cannula 2.0 Physical Exam Constitutional: Level of Distress: NAD, chronically ill Psychiatric: Mental Status: active & alert Orientation: oriented except where noted Lungs: Auscuitation: CTA except as noted Cardiovascular: Heart Auscultation: RRR Abdomen: Inspection & Palpation: soft, no tenderness, guarding & rebound, distended Extremities: no edema Laboratory Last 24 Hours Test 12/17/16 17:40 12/18/16 01:35 12/18/16 05:26 12/18/16 05:36 Urine Osmolality 349 mOms/kg Activated Partial Thromboplast Time 62.2 SECONDS 52.7 SECONDS Partial Thromboplastin Ratio 2.4 2.0 White Blood Count 15.76 K/uL Red Blood Count 3.28 M/uL Hemoglobin 9.3 g/dL Hematocrit 30.4 % Mean Corpuscular Volume 92.7 fL Mean Corpuscular Hemoglobin 28.4 pg Mean Corpuscular Hemoglobin Concent 30.6 g/dl Platelet Count 180 K/uL Mean Platelet Volume 8.6 fL Neutrophils (%) (Auto) 84.3 % Lymphocytes (%) (Auto) 11.3 % Monocytes (%) (Auto) 3.9 % Eosinophils (%) (Auto) 0.0 % Basophils (%) (Auto) 0.1 % Neutrophils # (Auto) 13.30 K/uL Lymphocytes # (Auto) 1.78 K/uL Monocytes # (Auto) 0.61 K/uL Eosinophils # (Auto) 0.00 K/uL Basophils # (Auto) 0.01 K/uL RDW Standard Deviation 48.8 fL RDW Coefficient of Variation 14.3 % Immature Granulocyte % (Auto) 0.4 % Immature Granulocyte # (Auto) 0.06 K/uL Sodium Level 131 mmol/L Potassium Level 4.2 mmol/L Chloride Level 96 mmol/L Carbon Dioxide Level 25 mmol/L Anion Gap 10.0 mmol/L Blood Urea Nitrogen 37 mg/dl Creatinine 2.10 mg/dl Est Creatinine Clear Calc Drug Dose 15.9 ml/min Estimated GFR () 23.8 Estimated GFR (Non- 20.5 BUN/Creatinine Ratio 17.4 Random Glucose 93 mg/dl Calcium Level 7.1 mg/dl Magnesium Level 2.8 mg/dl Assessment & Plan Ms. Rivera does not appear to be actively bleeding and her hemoglobin is up a bit today. I still think the colonoscopy is appropriate, if she can be adequately prepped. In the meantime, I would continue with the IV heparin. Once she is completed with her procedures and ready for discharge, I would transition her to Coumadin for her outpatient anticoagulation. Given her documented GI bleeding, an easily reversible anticoagulant would be the safest approach. We will sign off for now, but if she begins to bleed or if there are other anticoagulation issues, we would be happy to come back to see her. She should have an appointment in our clinic (she is a patient of Dr. Petit) after discharge to plan her IV iron therapy.
[2016-12-18] MEDS: SOAP SUDS ENEMA PR PRN (18:03)
--- NOTE | 2016-12-18 18:51 | Hospitalist Progress Note ---
Hospitalist Progress Note Date of Service Dec 18, 2016. Subjective Pt evaluation today including: conversation w/ patient, physical exam, conversation w/ provider relations consultant (Pulm) Pt had numerous BMs yesterday and a few today, feeling better, less abd pain and distension. Very tired today as was up late last night with BMs and had Renal US. All Other Systems: Reviewed and Negative Objective Vital Signs Date Time Temp Pulse Resp B/P (MAP) Pulse Ox O2 Delivery O2 Flow Rate FiO2 12/18/16 16:26 Nasal Cannula 2.0 12/18/16 16:04 36.4 76 18 118/59 (78) 98 Nasal Cannula 2.0 12/18/16 08:15 Nasal Cannula 2.0 12/18/16 07:19 36.3 79 16 127/68 (87) 100 Nasal Cannula 2.0 12/18/16 00:26 36.8 80 16 156/96 (116) 100 Nasal Cannula 4.0 12/18/16 00:00 Nasal Cannula 2.0 Physical Exam General Appearance: WD/WN, no apparent distress Eyes: normal inspection, sclerae normal ENT: hearing grossly normal Neck: trachea midline Respiratory/Chest: no respiratory distress, no accessory muscle use, + crackles (at bases) Cardiovascular: regular rate, rhythm, + systolic murmur, + pertinent finding ( left leg with 2+ pitting edema to knee) Abdomen: normal bowel sounds, + pertinent finding (protuberant abd but much softer than previous, stillwaith palpable stool vs mass in LLQ) Extremities: no calf tenderness Neurologic/Psychiatric: alert, + depressed affect Skin: normal color, warm/dry, no rash Laboratory Results Last 24 Hours Test 12/18/16 01:35 12/18/16 05:26 12/18/16 05:36 12/18/16 16:20 Activated Partial Thromboplast Time 62.2 SECONDS 52.7 SECONDS Partial Thromboplastin Ratio 2.4 2.0 White Blood Count 15.76 K/uL Red Blood Count 3.28 M/uL Hemoglobin 9.3 g/dL Hematocrit 30.4 % Mean Corpuscular Volume 92.7 fL Mean Corpuscular Hemoglobin 28.4 pg Mean Corpuscular Hemoglobin Concent 30.6 g/dl Platelet Count 180 K/uL Mean Platelet Volume 8.6 fL Neutrophils (%) (Auto) 84.3 % Lymphocytes (%) (Auto) 11.3 % Monocytes (%) (Auto) 3.9 % Eosinophils (%) (Auto) 0.0 % Basophils (%) (Auto) 0.1 % Neutrophils # (Auto) 13.30 K/uL Lymphocytes # (Auto) 1.78 K/uL Monocytes # (Auto) 0.61 K/uL Eosinophils # (Auto) 0.00 K/uL Basophils # (Auto) 0.01 K/uL RDW Standard Deviation 48.8 fL RDW Coefficient of Variation 14.3 % Immature Granulocyte % (Auto) 0.4 % Immature Granulocyte # (Auto) 0.06 K/uL Sodium Level 131 mmol/L Potassium Level 4.2 mmol/L Chloride Level 96 mmol/L Carbon Dioxide Level 25 mmol/L Anion Gap 10.0 mmol/L Blood Urea Nitrogen 37 mg/dl Creatinine 2.10 mg/dl Est Creatinine Clear Calc Drug Dose 15.9 ml/min Estimated GFR () 23.8 Estimated GFR (Non- 20.5 BUN/Creatinine Ratio 17.4 Random Glucose 93 mg/dl Calcium Level 7.1 mg/dl Magnesium Level 2.8 mg/dl Bedside Glucose 156 mg/dl Assessment and Plan Pt is an 86 yo female with a 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 She was manually disimpacted in ER successfully. Hemoccult negative, continues to be anemic. Had acute hypoxemic respiratory failure overnight after admission requiring NRB facemask, likely secondary to flash Pulm edema from fluid overload in setting of severe . Also incidentally noted to have choledocholithiasis on CT scan abd/pel on admission as well as cholelithiasis and mild-mod left hydronephrosis, severe fecal impaction. Her renal function was stable from previous with metal sprayer production 1.6 on admission and her LFTs are normal. LLE edema found on admission and Doppler confirms Acute DVT LLE 1. Obstipation/Fecal impaction/Abd pain/Sterile colitis/possible choledocholithiasis with dilated CBD-->s/p manual disimpaction in the ED with success but continued with massively distended abdomen--CT findings consistent with a fecal impaction, and massive amount of stool w/ adjacent inflammation of the colon that could be consistent with a colitis. Also noted choledocholithiasis and cholelithiasis with moderate biliary ductal dilatation. HIDA confirms cystic duct obstruction. Stones vs mass in CBD? Had some successful BMs with enemas on 12/16, then large amount of stool evacuated on 12/17-12/18 Had hematemesis/coffee ground emesis on 12/17, heparin gtt held With h/o recent GI bleed on previous admission and severe constipation--> question if has colon CA? EGD 12/17 showed: - Normal upper third of esophagus and middle third of esophagus. - LA Grade C reflux esophagitis. - Medium-sized hiatus hernia. - A few gastric polyps. - Normal duodenal bulb, first part of the duodenum, 2nd part of the duodenum and 3rd part of the duodenum. - No specimens collected. -Hematemesis likely from esophagitis with wretching -continue with enemas today -continue to hold Miralax for now to minimize nausea but starting Colytele prep Sat and Sun in prep for colonoscopy on Wednesday -ERCP decision still ongoing -continue docusate -GI consultation appreciated 2. Urinary retention secondary to constipation, ANA PAULA on CKD stage III-pt cut her Hu with scissors with episode of delirium-> -does not tolerate Hu -bladder scan and straight cath prn PVR>300 mL 3. Acute LLE DVT, POA/Anemia--> could be provoked by recent hospital stays but also with h/o PEs and nephrotic syndrome putting her at increased risk for recurrence. Hgb 8-9 and slight drop from previous on admission but now stable, did not receive any Fe supplementation since last admission 2 months ago. Hematemesis --> heparin gtt was on hold x 1 day, then restarted Hgb remains stable at 8.8-9.3 -continue heparin gtt and after procedures, consider transition to Eliquis for DVT -follow CBC closely given anemia and h/o GI bleed -may need IV Fe in future, could give PRBC transfusion here if needed -Consult to Heme appreciated -consider IVC filter placement if continued GI bleeding-d/w pt and son 4. ANA PAULA on CKD stage III, Membranous GN/Nephrotic Syndrome, h/o HD and AIN in 2009, Mild-mod left hydroureteronephrosis, Hyponatremia--received IVFs for metal sprayer production initiallly but this is her new baseline, developed Pulm edema, dc IVFs. Barto may be from severe constipation and urinary retention Mail Examiner worsened to 2.3 up from 1.6 baseline--> improved today to 2.1 Na+ 130-> 131, UrOsm high c/w high ADH state UA without evidence of infection or protein -consult Nephrology appreciated -straight cath prn as above given intolerance to Hu -follow PRP -avoid nephrotoxins and renally dose all meds -fluid restrict to < 1500 ml/day 5. Severe ,Mod MR,Mild MS, HTN,CAD,PAF,h/o cerebellar CVA, acute hypoxemic resp failure secondary to acute on chronic diastolic CHF-->BPs controlled.in regular rhythm here by exam and on ECG. Not on AC on admission likely due to h/ o GI bleeding. In past AVR has been discussed but thought to not be a great candidate given comorbidities Acute resp failure comes and goes--> back on O2 intermittently -continue diltiazem,statin -hold po lasix now for worsening renal failure -follow lytes -Consult Cardiology for preop management appreciated 6. Hypercholesterolemia-- continue pravastatin 20 mg by mouth at bedtime. 7. Hypothyroidism-- TSH here 6.94 with low FT3 and normal FT4 c/w Euthyroid sick syndrome -continue levothyroxine sodium 75 g by mouth daily. GERD--continue pantoprazole and increased to 40 mg by mouth twice a day. Proph-SCD to rt leg, heparin gtt, PPI Dispo- Full code PT/OT evals
[2016-12-18] MEDS: PRAVASTATIN SOD 20 MG TAB PO SCH (20:38)
[2016-12-19] VITALS: BP 127/68; PULSE 73; TEMP 36.4; O2SAT 99
[2016-12-19] MEDS: HEPARIN 25,000 UNIT/500ML D5W 500 ML IV PRN (05:46)
[2016-12-19] MEDS: LEVOTHYROXINE 75 MCG TAB PO SCH (05:46)
[2016-12-19 07:11] LABS: HEMATOCRIT 28.7 % (37-47); MEAN CELL VOLUME 91.7 fL (80-100); MEAN CORPUSCULAR HEMOGLOBIN 28.8 pg (25-34); MEAN CORPUSCULAR HGB CONC 31.4 g/dl (32-36); MEAN PLATELET VOLUME 8.7 fL (7.4-10.4); PLATELET COUNT 194 K/uL (130-400); RED BLOOD COUNT 3.13 M/uL (4.2-5.4); WHITE BLOOD COUNT 13.19 K/uL (4.8-10.8)
[2016-12-19 07:23] LABS: PARTIAL THROMBOPLASTIN RATIO 2.4
[2016-12-19] MEDS ORDERED: LAVAGE SOLUTION 4000ML PO SCH ×3 (08:00)
[2016-12-19 08:03] VITALS: BP 131/71; PULSE 70; TEMP 36.2; O2SAT 100
[2016-12-19 08:17] LABS: BUN/CREATININE RATIO 18.7 (10-20); CALCIUM 7.3 mg/dl (8.5-10.1); CREATININE 1.8 mg/dl (0.60-1.20); MAGNESIUM 2.6 mg/dl (1.8-2.4); POTASSIUM 3.4 mmol/L (3.5-5.1)
[2016-12-19] MEDS: MUPIROCIN 2% OINT 22 GM TUBE EXT SCH (08:33)
[2016-12-19] MEDS: CHOLECALCIFEROL 1000 INTER.UNIT TAB PO SCH (08:33)
[2016-12-19] MEDS: CYANOCOBALAMIN 500 MCG TAB (VIT B-12) PO SCH (08:33)
[2016-12-19] MEDS: BOOST BREEZE NUTRITION DRINK 1 BOX PO SCH ×3 (08:33→20:17)
[2016-12-19] MEDS: NYSTATIN SUSP 500,000 U/5 ML UDC PO SCH ×4 (08:34→20:17)
[2016-12-19] MEDS: DOCUSATE SODIUM 100 MG CAP PO SCH ×2 (08:34→20:17)
[2016-12-19] MEDS: DILTIAZEM HCL 120 MG EXT REL CAP PO SCH (08:34)
[2016-12-19] MEDS: PANTOprazole SOD 40 MG TAB PO SCH ×2 (08:34→20:17)
[2016-12-19] MEDS: LAVAGE SOLUTION 4000ML PO SCH (08:46)
[2016-12-19] MEDS: POTASSIUM CHLORIDE 20 MEQ TABCR PO SCH ×2 (09:24→20:17)
--- NOTE | 2016-12-19 09:36 | Nephrology Progress Note ---
Nephrology Progress Note Date of Service Dec 19, 2016. Chief Complaint ANA PAULA Subjective No acute events overnight. Anusha is resting comfortably in bed this morning. She denies pain. She denies shortness of breath. Remains on clear liquid diet. No appetite. Denies nausea. Voiding urine without difficulty. Her son was updated on the phone this morning. Review of Systems A complete review of systems was performed. Pertinent positives are noted above. All other systems are negative. Vital Signs Last 8 Hrs Date Time Temp Pulse Resp B/P (MAP) Pulse Ox O2 Delivery O2 Flow Rate FiO2 12/19/16 08:03 36.2 70 20 131/71 (91) 100 Nasal Cannula 2.0 Last Recorded Weight Weight (Kilograms): 54.500 Physical Exam General Appearance: no apparent distress, + thin Head: normocephalic, atraumatic Eyes: normal inspection, sclerae normal ENT: normal ENT inspection, + pertinent finding (oral mucosa slightly dry, no oral lesions) Neck: supple, no JVD Respiratory/Chest: lungs clear, no respiratory distress, no accessory muscle use Cardiovascular: regular rate, rhythm, no gallop Abdomen/GI: non tender, + abnormal bowel sounds, + distended Extremities/Musculoskelatal: + pedal edema (dependent and lower extremity pitting edema) Neurologic/Psych: alert, + depressed affect Family History Heart disease Social History Drug Use: none Marital Status: Housing Status: lives with family 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 Laboratory Results Past 24 Hours 12/19/16 06:27 12/19/16 06:29 Test 12/18/16 16:20 12/18/16 20:19 12/19/16 06:27 12/19/16 06:29 Bedside Glucose 156 mg/dl (70-90) 239 mg/dl (70-90) Red Blood Count 3.13 M/uL (4.2-5.4) Mean Corpuscular Volume 91.7 fL (80-100) Mean Corpuscular Hemoglobin 28.8 pg (25-34) Mean Corpuscular Hemoglobin Concent 31.4 g/dl (32-36) RDW Standard Deviation 47.7 fL (36.4-46.3) RDW Coefficient of Variation 14.2 % (11.5-14.5) Mean Platelet Volume 8.7 fL (7.4-10.4) Activated Partial Thromboplast Time 62.5 SECONDS (21.0-31.0) Partial Thromboplastin Ratio 2.4 Anion Gap 13.0 mmol/L (3-11) Est Creatinine Clear Calc Drug Dose 18.6 ml/min Estimated GFR () 28.6 Estimated GFR (Non- 24.7 BUN/Creatinine Ratio 18.7 (10-20) Calcium Level 7.3 mg/dl (8.5-10.1) Magnesium Level 2.6 mg/dl (1.8-2.4) Total Bilirubin 1.7 mg/dl (0.2-1) Direct Bilirubin 0.8 mg/dl (0-0.2) Aspartate Amino Transf (AST/SGOT) 15 U/L (15-37) Alanine Aminotransferase (ALT/SGPT) 16 U/L (12-78) Alkaline Phosphatase 76 U/L (45-117) Total Protein 5.0 gm/dl (6.4-8.2) Albumin 2.4 gm/dl (3.4-5.0) Test 12/19/16 07:46 Bedside Glucose 116 mg/dl (70-90) Allergies Coded Allergies: Doxycycline (Verified Allergy, Intermediate, RASH, 12/15/16) Trimethoprim (Verified Allergy, Intermediate, RASH, 12/15/16) Adhesives (Verified Allergy, Unknown, HAD RXN TO HOLTER MONITOR PATCHES, ) Amoxicillin (Verified Allergy, Unknown, RASH, 12/15/16) Atorvastatin (Verified Allergy, Unknown, UNKNOWN, 12/15/16) Carbamazepine (Verified Allergy, Unknown, 12/14/16) Hydantoins (Verified Allergy, Unknown, 12/14/16) Levofloxacin (Verified Allergy, Unknown, UNKNOWN, 12/15/16) Penicillins (Verified Allergy, Unknown, AMOXIL,HAS TOLERATED CEPHS, 12/15/16 ) has tolerated cefepime and ceftriaxone on previous admissions Phenytoin (Verified Allergy, Unknown, 12/14/16) Sulfamethoxazole w/Trimethoprim (Unverified Allergy, Unknown, VASCULITIS, 12/14/16) Medications Current Inpatient Medications Medications (Trade) Dose Ordered Sig/Phillip Route Start Time Stop Time Status Last Admin Dose Admin Acetaminophen (Tylenol Tab) 650 mg Q4H PRN PO 12/14/16 17:00 01/13/17 16:59 12/15/16 23:46 650 MG Cholecalciferol (Vitamin D Tab) 2,000 inter.unit DAILY PO 12/15/16 08:00 01/14/17 08:59 12/19/16 08:33 2,000 INTER.UNIT Cyanocobalamin (Vitamin B-12 Tab) 1,000 mcg DAILY PO 12/15/16 08:00 01/14/17 08:59 12/19/16 08:33 1,000 MCG Diltiazem HCl (TIAzac CAP) 240 mg DAILY PO 12/15/16 08:00 01/14/17 08:59 12/19/16 08:34 240 MG Docusate Sodium (coLACE CAP) 100 mg BID PO 12/14/16 20:00 01/13/17 20:59 12/19/16 08:34 100 MG Levothyroxine Sodium (Synthroid Tab) 75 mcg DAILYBB PO 12/15/16 06:30 01/14/17 06:29 Future Hold 12/17/16 06:16 75 MCG Nystatin (Mycostatin Susp) 5 ml QID PO 12/14/16 19:00 12/24/16 18:59 12/19/16 08:34 5 ML Pravastatin Sodium (Pravachol Tab) 20 mg HS PO 12/14/16 21:00 01/13/17 20:59 12/18/16 20:38 20 MG Mupirocin (Bactroban 2% Oint) 1 appln DAILY EXT 12/15/16 08:00 01/14/17 07:59 12/19/16 08:33 1 APPLN Heparin Sodium/ Dextrose 500 ml @ 13 mls/hr Q24H PRN IV 12/15/16 01:00 01/14/17 00:59 12/19/16 05:46 13 MLS/HR Polyethylene (Miralax Powder Packet) 17 gm BID PO 12/15/16 20:00 01/14/17 08:59 Future Hold 12/16/16 07:28 17 GM Morphine Sulfate (MoRPHine SULFATE INJ) 2 mg Q4H PRN IV 12/15/16 12:00 12/29/16 11:59 Miscellaneous (Soap Suds Enema) 1 ea DAILY PRN SD 12/16/16 14:00 01/15/17 13:59 12/18/16 18:03 1 EA Mineral Oil (Fleet Oil Enema) 133 ml DAILY PRN SD 12/16/16 14:15 01/15/17 14:14 12/16/16 20:32 133 ML Ondansetron HCl (Zofran Inj) 4 mg Q8H PRN IV 12/16/16 19:30 01/15/17 19:29 12/17/16 19:22 4 MG Sodium Chloride 1,000 ml @ 75 mls/hr [id number] IV 12/17/16 07:45 01/16/17 07:44 Future Hold 12/17/16 21:34 75 MLS/HR Pantoprazole Sodium (Protonix Tab) 40 mg BID PO 12/17/16 20:00 01/16/17 19:59 12/19/16 08:34 40 MG Levothyroxine Sodium (Synthroid Tab) 75 mcg DAILYBB PO 12/18/16 06:30 01/17/17 06:29 12/19/16 05:46 75 MCG Enteral Nutritional Formula (Boost Breeze Nutritional Drink) 0.5 box TID PO 12/18/16 14:00 01/17/17 13:59 12/19/16 08:33 0.5 BOX Sodium Biphosphate/ Sodium Phosphate (Fleet Enema) 132 ml TODAY@0800 ONCE SD 12/21/16 08:00 12/21/16 08:01 Polyethylene Glycol/ Electrolytes (Golytely Soln) 8 dose DAILY@0800 PO 12/19/16 08:00 12/20/16 08:01 12/19/16 08:46 8 DOSE Bisacodyl (Dulcolax Supp) 10 mg HS PRN SD 12/18/16 15:30 01/13/17 16:59 Potassium Chloride (Klor-Con Tab) 40 meq BID PO 12/19/16 09:15 01/18/17 09:14 Impression (1) Hyponatremia (2) ANA PAULA (acute kidney injury) (3) Hypertension Nos (4) Anemia (5) Obstipation Anusha is a 86-year-old female admitted to the hospital with constipation and fecal impaction. On admission creatinine was at baseline of 1.6. Anusha unfortunately developed acute kidney injury and creatinine peaked at 2.4 mg/dL on 12/18/16. It has improved to 1.8 this morning. She has been non oliguric but remained in a positive fluid balance. ANA PAULA consistent with resolving ATN ( suspected due to hemodynamic injury). His has an history of imaging documenting chronic mild right-sided hydronephrosis. CT of the abdomen pelvis on admission revealed left-sided moderate hydronephrosis which persisted on US obtained on 12/17/16. Patient did not tolerate Hu catheter which was removed. Anusha developed hyponatremia. She appears euvolemic to slightly hypervolemic on exam. Clinically consistent with increased TBW but decreased EAV. Urine osmolality was inappropriately high consistent with tubular injury or high ADH state. Currently with multiple medical problem including constipation, anemia with possible UGI bleed, had EGD on 12/17/16 showing showing esophagitis, HH and a gastric polyp. FOBT negative but with severe constipation and anemia concern for colonic pathology remains. Found to have obstructed cystic duct. On admission she was also found to have acute lower extremity DVT and started on heparin drip. Anusha has baseline stage 3 chronic kidney disease (creatinine 1.4-1.6), prior history of nephrotic syndrome and recovery from ANA PAULA requiring dialysis in 2007. She has a history of seizure disorder, severe aortic stenosis and pulmonary embolism. Recommendations -- Restrict free water to 1500 ml daily -- Start standing potassium replacement (40 mEq BID) -- Encourage protein intake when able -- Repeat metabolic profile this afternoon -- If serum sodium continues to drop, I would consider starting oral NaCl tablets and low dose loop diuretic -- Medications are appropriate for renal function -- I spoke with the patient's son, Travis ), this morning
--- NOTE | 2016-12-19 10:17 | Hospitalist Progress Note ---
Hospitalist Progress Note Date of Service Dec 19, 2016. Subjective Pt evaluation today including: conversation w/ patient, conversation w/ family , physical exam Continues to retain urine requiring straight cath every shift. No abd pain, lots of belching. Starting bowel prep today All Other Systems: Reviewed and Negative Objective Vital Signs Date Time Temp Pulse Resp B/P (MAP) Pulse Ox O2 Delivery O2 Flow Rate FiO2 12/19/16 08:03 36.2 70 20 131/71 (91) 100 Nasal Cannula 2.0 12/19/16 08:00 Nasal Cannula 2.0 12/19/16 01:10 Nasal Cannula 2.0 12/19/16 00:00 36.4 73 16 127/68 (87) 99 2.0 12/18/16 20:05 Nasal Cannula 2.0 12/18/16 16:26 Nasal Cannula 2.0 12/18/16 16:04 36.4 76 18 118/59 (78) 98 Nasal Cannula 2.0 Physical Exam General Appearance: no apparent distress, + thin Eyes: normal inspection, sclerae normal ENT: hearing grossly normal Neck: trachea midline Respiratory/Chest: no respiratory distress, no accessory muscle use, + crackles (at bases bilat faint) Cardiovascular: regular rate, rhythm, + systolic murmur (3/6 at RUSB), + pertinent finding (2+ pitting edema left leg) Abdomen: normal bowel sounds, non tender, + distended (still markedly distended but nontender, not rigid, still with palpable stool) Extremities: non-tender Neurologic/Psychiatric: alert, oriented x 3, + depressed affect Skin: normal color, no rash Laboratory Results Last 24 Hours Test 12/18/16 16:20 12/18/16 20:19 12/19/16 06:27 12/19/16 06:29 Bedside Glucose 156 mg/dl 239 mg/dl White Blood Count 13.19 K/uL Red Blood Count 3.13 M/uL Hemoglobin 9.0 g/dL Hematocrit 28.7 % Mean Corpuscular Volume 91.7 fL Mean Corpuscular Hemoglobin 28.8 pg Mean Corpuscular Hemoglobin Concent 31.4 g/dl RDW Standard Deviation 47.7 fL RDW Coefficient of Variation 14.2 % Platelet Count 194 K/uL Mean Platelet Volume 8.7 fL Activated Partial Thromboplast Time 62.5 SECONDS Partial Thromboplastin Ratio 2.4 Sodium Level 130 mmol/L Potassium Level 3.4 mmol/L Chloride Level 94 mmol/L Carbon Dioxide Level 23 mmol/L Anion Gap 13.0 mmol/L Blood Urea Nitrogen 34 mg/dl Creatinine 1.80 mg/dl Est Creatinine Clear Calc Drug Dose 18.6 ml/min Estimated GFR () 28.6 Estimated GFR (Non- 24.7 BUN/Creatinine Ratio 18.7 Random Glucose 96 mg/dl Calcium Level 7.3 mg/dl Magnesium Level 2.6 mg/dl Total Bilirubin 1.7 mg/dl Direct Bilirubin 0.8 mg/dl Aspartate Amino Transf (AST/SGOT) 15 U/L Alanine Aminotransferase (ALT/SGPT) 16 U/L Alkaline Phosphatase 76 U/L Total Protein 5.0 gm/dl Albumin 2.4 gm/dl Test 12/19/16 07:46 Bedside Glucose 116 mg/dl Assessment and Plan Pt is an 86 yo female with a 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 She was manually disimpacted in ER successfully. Hemoccult negative, continues to be anemic. Had acute hypoxemic respiratory failure overnight after admission requiring NRB facemask, likely secondary to flash Pulm edema from fluid overload in setting of severe . Also incidentally noted to have choledocholithiasis on CT scan abd/pel on admission as well as cholelithiasis and mild-mod left hydronephrosis, severe fecal impaction. Her renal function was stable from previous with developing machine operator 1.6 on admission and her LFTs are normal. LLE edema found on admission and Doppler confirms Acute DVT LLE 1. Obstipation/Fecal impaction/Abd pain/Sterile colitis/possible choledocholithiasis with dilated CBD-->s/p manual disimpaction in the ED with success but continued with massively distended abdomen--CT findings consistent with a fecal impaction, and massive amount of stool w/ adjacent inflammation of the colon that could be consistent with a colitis. Also noted choledocholithiasis and cholelithiasis with moderate biliary ductal dilatation. HIDA confirms cystic duct obstruction. Stones vs mass in CBD? Had some successful BMs with enemas on 12/16, then large amount of stool evacuated on 12/17-12/18, continues to have formed stool multiple times and abd remains markedly distended Had hematemesis/coffee ground emesis on 12/17, heparin gtt held, then restarted after that resolved and Hgb stable With h/o recent GI bleed on previous admission and severe constipation--> question if has colon CA? TBili now starting to creep up EGD 12/17 showed: - Normal upper third of esophagus and middle third of esophagus. - LA Grade C reflux esophagitis. - Medium-sized hiatus hernia. - A few gastric polyps. - Normal duodenal bulb, first part of the duodenum, 2nd part of the duodenum and 3rd part of the duodenum. - No specimens collected. -Hematemesis likely from esophagitis with wretching -continue with enemas today-mineral oil and soap suds -starting Colytele prep Sat and Sun in prep for colonoscopy on Wednesday -ERCP decision still ongoing -continue docusate -GI consultation appreciated -Nutrition input appreciated-Boost Breeze 2. Urinary retention secondary to constipation, ANA PAULA on CKD stage III-pt cut her Hu with scissors with episode of delirium-> -does not tolerate Hu but now willing to replace today as continues to require straight cath qshift 3. Acute LLE DVT, POA/Anemia--> could be provoked by recent hospital stays but also with h/o PEs and nephrotic syndrome putting her at increased risk for recurrence. Hgb 8-9 and slight drop from previous on admission but now stable, did not receive any Fe supplementation since last admission 2 months ago. Hematemesis --> heparin gtt was on hold x 1 day, then restarted Hgb remains stable at 8.8-9.3 -continue heparin gtt and after procedures, consider transition to Coumadin for DVT in case of need for reversal if future bleed -follow CBC closely given anemia and h/o GI bleed -may need IV Fe in future, could give PRBC transfusion here if needed -Consult to Heme appreciated -consider IVC filter placement if continued GI bleeding-d/w pt and son 4. ANA PAULA on CKD stage III, Membranous GN/Nephrotic Syndrome, h/o HD and AIN in 2009, Mild-mod left hydroureteronephrosis, Hyponatremia, Hypokalemia--received IVFs for developing machine operator initiallly but this is her new baseline, developed Pulm edema, dc IVFs. Olin may be from severe constipation and urinary retention Special Education Professional worsened to 2.3 up from 1.6 baseline--> improved today to 1.8 Na+ 130, UrOsm high c/w high ADH state-persists UA without evidence of infection or protein -consult Nephrology appreciated -Hu today -follow PRP -avoid nephrotoxins and renally dose all meds -fluid restrict to < 1500 ml/day -replace K+ -consider adding NaCl tabs and low dose loop diuretic if Na+ not improving this afternoon on repeat lab 5. Severe ,Mod MR,Mild MS, HTN,CAD,PAF,h/o cerebellar CVA, acute hypoxemic resp failure secondary to acute on chronic diastolic CHF-->BPs controlled.in regular rhythm here by exam and on ECG. Not on AC on admission likely due to h/ o GI bleeding. In past AVR has been discussed but thought to not be a great candidate given comorbidities Acute resp failure comes and goes--> O2 prn -continue diltiazem,statin -may restart po lasix later today -follow lytes -Consult Cardiology for preop management appreciated -watch for extremes of fluid status 6. Hypercholesterolemia-- continue pravastatin 20 mg by mouth at bedtime. 7. Hypothyroidism-- TSH here 6.94 with low FT3 and normal FT4 c/w Euthyroid sick syndrome -continue levothyroxine sodium 75 g by mouth daily. GERD--continue pantoprazole and increased to 40 mg by mouth twice a day. Proph-SCD to rt leg, heparin gtt, PPI Dispo- Full code PT/OT evals
[2016-12-19 10:20] VITALS: O2SAT 99
[2016-12-19 11:07] VITALS: O2SAT 96
[2016-12-19] MEDS: ACETAMINOPHEN 325 MG TAB PO PRN (11:45)
[2016-12-19 15:43] VITALS: BP 167/80; PULSE 74; TEMP 36.4; O2SAT 92
[2016-12-19] MEDS: SOAP SUDS ENEMA PR PRN (16:05)
[2016-12-19] MEDS: ONDANSETRON INJ 2 MG/ML 2 ML VIAL IV PRN (16:05)
[2016-12-19 18:03] LABS: BUN/CREATININE RATIO 18.1 (10-20); CALCIUM 7.2 mg/dl (8.5-10.1); CREATININE 1.7 mg/dl (0.60-1.20); POTASSIUM 3.5 mmol/L (3.5-5.1)
[2016-12-19] MEDS: MINERAL OIL ENEMA 133 ML BTL PR PRN ×2 (18:32→20:18)
[2016-12-19] MEDS: PRAVASTATIN SOD 20 MG TAB PO SCH (20:17)
[2016-12-20 00:38] VITALS: BP 130/53; PULSE 90; TEMP 36.5; O2SAT 91
[2016-12-20 06:22] LABS: HEMATOCRIT 27.8 % (37-47); MEAN CELL VOLUME 90.8 fL (80-100); MEAN CORPUSCULAR HEMOGLOBIN 30.1 pg (25-34); MEAN CORPUSCULAR HGB CONC 33.1 g/dl (32-36); PLATELET COUNT 177 K/uL (130-400); RED BLOOD COUNT 3.06 M/uL (4.2-5.4)
[2016-12-20 06:40] LABS: PARTIAL THROMBOPLASTIN RATIO 1.8
[2016-12-20 06:46] LABS: COMPLETE YES; ECHINOCYTES 1+; LYMPH ABS # 0.23 K/uL (1.2-3.4); LYMPHOCYTE % 2.6 %; NEUTROPHILS % 95.7 %; SPHEROCYTE 1+; TOXIC GRANULATION 1+
[2016-12-20 07:05] LABS: CALCIUM 7.2 mg/dl (8.5-10.1); CREATININE 1.7 mg/dl (0.60-1.20); PHOSPHORUS 3.5 mg/dl (2.5-4.9)
[2016-12-20 07:12] VITALS: BP 117/45; PULSE 73; TEMP 36; O2SAT 94
[2016-12-20 07:29] VITALS: BP 116/56
[2016-12-20] MEDS: DILTIAZEM HCL 120 MG EXT REL CAP PO SCH (08:00)
[2016-12-20] MEDS: CYANOCOBALAMIN 500 MCG TAB (VIT B-12) PO SCH (09:20)
[2016-12-20] MEDS: DOCUSATE SODIUM 100 MG CAP PO SCH ×2 (09:20→20:55)
[2016-12-20] MEDS: LEVOTHYROXINE 75 MCG TAB PO SCH (09:20)
[2016-12-20] MEDS: NYSTATIN SUSP 500,000 U/5 ML UDC PO SCH ×4 (09:20→20:52)
[2016-12-20] MEDS: MUPIROCIN 2% OINT 22 GM TUBE EXT SCH (09:22)
[2016-12-20] MEDS: BOOST BREEZE NUTRITION DRINK 1 BOX PO SCH ×3 (09:22→20:54)
[2016-12-20] MEDS: PANTOprazole SOD 40 MG TAB PO SCH ×2 (09:23→20:54)
[2016-12-20] MEDS: CHOLECALCIFEROL 1000 INTER.UNIT TAB PO SCH (09:23)
[2016-12-20] MEDS: POTASSIUM CHLORIDE 20 MEQ TABCR PO SCH ×2 (09:24→20:52)
[2016-12-20] MEDS ORDERED: POTASSIUM CHLORIDE 20 MEQ TABCR PO ONE (09:30)
[2016-12-20] MEDS: LAVAGE SOLUTION 4000ML PO SCH (09:48)
--- NOTE | 2016-12-20 10:04 | Hospitalist Progress Note ---
Hospitalist Progress Note Date of Service Dec 20, 2016. Subjective Pt evaluation today including: conversation w/ patient, conversation w/ family , review of inpatient medication list Voiding: sweet catheter in place Pt had more vomiting overnight that was possibly coffee ground at 0600. Hgb stable this AM. Feeling fatigued, BPs lower. No more BMs overnight.No abd pain, no further nausea this AM. No CP or SOB Constitutional: No fever All Other Systems: Reviewed and Negative Objective Vital Signs Date Time Temp Pulse Resp B/P (MAP) Pulse Ox O2 Delivery O2 Flow Rate FiO2 12/20/16 07:35 Room Air 12/20/16 07:29 116/56 (76) 12/20/16 07:12 36.0 73 20 117/45 (69) 94 Room Air 12/20/16 01:36 Nasal Cannula 2.0 12/20/16 00:38 36.5 90 18 130/53 (78) 91 Room Air 12/19/16 19:24 Nasal Cannula 2.0 12/19/16 16:00 Room Air 12/19/16 15:43 36.4 74 20 167/80 (109) 92 Room Air 12/19/16 11:07 96 Room Air 12/19/16 10:20 99 Nasal Cannula 1.0 Physical Exam General Appearance: no apparent distress (but appears chronically ill, fatigued ) Eyes: normal inspection, sclerae normal Neck: trachea midline Respiratory/Chest: no respiratory distress, no accessory muscle use, + crackles (at bases bilat) Cardiovascular: + tachycardia, + systolic murmur (2/6 but difficult to hear this AM due to irregular rhythm), + irregularly irregular Abdomen: normal bowel sounds, non tender, + distended (but much softer than previous) Extremities: non-tender, + pertinent finding (2+ pitting edema left leg) Neurologic/Psychiatric: alert, + depressed affect Skin: normal color, warm/dry, no rash Laboratory Results Last 24 Hours Test 12/19/16 11:27 12/19/16 16:38 12/19/16 17:25 12/19/16 19:54 Bedside Glucose 179 mg/dl 138 mg/dl 171 mg/dl Sodium Level 130 mmol/L Potassium Level 3.5 mmol/L Chloride Level 92 mmol/L Carbon Dioxide Level 25 mmol/L Anion Gap 13.0 mmol/L Blood Urea Nitrogen 31 mg/dl Creatinine 1.70 mg/dl Est Creatinine Clear Calc Drug Dose 19.7 ml/min Estimated GFR () 30.7 Estimated GFR (Non- 26.5 BUN/Creatinine Ratio 18.1 Random Glucose 125 mg/dl Calcium Level 7.2 mg/dl Test 12/20/16 06:05 12/20/16 07:25 White Blood Count 8.90 K/uL Red Blood Count 3.06 M/uL Hemoglobin 9.2 g/dL Hematocrit 27.8 % Mean Corpuscular Volume 90.8 fL Mean Corpuscular Hemoglobin 30.1 pg Mean Corpuscular Hemoglobin Concent 33.1 g/dl Platelet Count 177 K/uL Mean Platelet Volume 9.0 fL RDW Standard Deviation 46.8 fL RDW Coefficient of Variation 14.1 % Neutrophils % (Manual) 95.7 % Lymphocytes % (Manual) 2.6 % Monocytes % (Manual) 1.7 % Neutrophils # (Manual) 8.52 K/uL Total Absolute Neutrophils 8.52 K/uL Lymphocytes # (Manual) 0.23 K/uL Total Absolute Lymphocytes 0.23 K/uL Monocytes # (Manual) 0.15 K/uL Toxic Granulation 1+ Spherocytes 1+ Echinocytes 1+ Activated Partial Thromboplast Time 47.9 SECONDS Partial Thromboplastin Ratio 1.8 Sodium Level 132 mmol/L Potassium Level 3.0 mmol/L Chloride Level 93 mmol/L Carbon Dioxide Level 23 mmol/L Anion Gap 16.0 mmol/L Blood Urea Nitrogen 31 mg/dl Creatinine 1.70 mg/dl Est Creatinine Clear Calc Drug Dose 19.7 ml/min Estimated GFR () 30.7 Estimated GFR (Non- 26.5 BUN/Creatinine Ratio 18.0 Random Glucose 167 mg/dl Calcium Level 7.2 mg/dl Phosphorus Level 3.5 mg/dl Albumin 2.2 gm/dl Bedside Glucose 213 mg/dl Assessment and Plan Pt is an 86 yo female with a 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 She was manually disimpacted in ER successfully. Hemoccult negative, continues to be anemic. Had acute hypoxemic respiratory failure overnight after admission requiring NRB facemask, likely secondary to flash Pulm edema from fluid overload in setting of severe . Also incidentally noted to have choledocholithiasis on CT scan abd/pel on admission as well as cholelithiasis and mild-mod left hydronephrosis, severe fecal impaction. Her renal function was stable from previous with button sewer hand 1.6 on admission and her LFTs are normal. LLE edema found on admission and Doppler confirms Acute DVT LLE 1. Obstipation/Fecal impaction/Abd pain/Sterile colitis/possible choledocholithiasis with dilated CBD-->s/p manual disimpaction in the ED with success but continued with massively distended abdomen--CT findings consistent with a fecal impaction, and massive amount of stool w/ adjacent inflammation of the colon that could be consistent with a colitis. Also noted choledocholithiasis and cholelithiasis with moderate biliary ductal dilatation. HIDA confirms cystic duct obstruction. Stones vs mass in CBD? Had some successful BMs with enemas on 12/16, then large amount of stool evacuated on 12/17-12/18, continues to have formed stool multiple times and abd distension starting to improve slowly Had hematemesis/coffee ground emesis on 12/17, heparin gtt held, then restarted after that resolved and Hgb stable Recurrent ?Hematemesis as per RN on AM of 12/20 With h/o recent GI bleed on previous admission and severe constipation--> question if has colon CA? TBili now starting to creep up EGD 12/17 showed: - Normal upper third of esophagus and middle third of esophagus. - LA Grade C reflux esophagitis. - Medium-sized hiatus hernia. - A few gastric polyps. - Normal duodenal bulb, first part of the duodenum, 2nd part of the duodenum and 3rd part of the duodenum. - No specimens collected. -Hematemesis likely from esophagitis with wretching -repeat H/H at 1200, stop heparin gtt if dropping -continue with enemas today-soap suds -continue slow Colytele prep in prep for colonoscopy on Wednesday or now looking like ? -check prealbumin, lipids, labs for possible TPN if needed-appreciate Nutrition Consult for recommendations -ERCP decision still ongoing -continue docusate -GI consultation appreciated -Nutrition input appreciated-Boost Ricardo 2. Urinary retention secondary to constipation-pt cut her Sweet with scissors with episode of delirium-> retention resolved with Sweet Sweet replaced 12/19 as was continuing to require straight cath qshift 3. Acute LLE DVT, POA/Anemia--> could be provoked by recent hospital stays but also with h/o PEs and nephrotic syndrome putting her at increased risk for recurrence. Hgb 8-9 and slight drop from previous on admission but now stable, did not receive any Fe supplementation since last admission 2 months ago. Hematemesis --> heparin gtt was on hold x 1 day, then restarted, now recurrent hematemesis AM of 12/20 Hgb remains stable at 8.8-9.3 -continue heparin gtt and after procedures, consider transition to Coumadin for DVT in case of need for reversal if future bleed -follow CBC closely given anemia and h/o GI bleed--> repeat today for recurrent ?hematemesis -may need IV Fe in future, could give PRBC transfusion here if needed -Consult to Heme appreciated -consider IVC filter placement if continued GI bleeding-d/w pt and son 4. ANA PAULA on CKD stage III, Membranous GN/Nephrotic Syndrome, h/o HD and AIN in 2008, Mild-mod left hydroureteronephrosis, Hyponatremia, Hypokalemia--received IVFs for button sewer hand initiallly but this is her new baseline, developed Pulm edema, dc IVFs. [place] may be from severe constipation and urinary retention Life Skills Coordinator worsened to 2.3 up from 1.6 baseline--> improved today to 1.7 Na+ 130->132, UrOsm high c/w high ADH state-persists Hypokalemia--> worse today at 3.0 likely from GI losses UA without evidence of infection or protein -consult Nephrology appreciated -Sweet in place -follow PRP -avoid nephrotoxins and renally dose all meds -fluid restrict to < 1500 ml/day -replace K+ -consider adding NaCl tabs and low dose loop diuretic if Na+ not improving this afternoon on repeat lab 5. Severe ,Mod MR,Mild MS, HTN,CAD,PAF,h/o cerebellar CVA, acute hypoxemic resp failure secondary to acute on chronic diastolic CHF-->BPs controlled.in regular rhythm here by exam and on ECG. Not on AC on admission likely due to h/ o GI bleeding. In past AVR has been discussed but thought to not be a great candidate given comorbidities Acute resp failure comes and goes--> O2 prn -continue diltiazem,statin -may restart po lasix as per Nephro -follow lytes -Consult Cardiology for preop management appreciated -watch for extremes of fluid status 6. Hypercholesterolemia-- continue pravastatin 20 mg by mouth at bedtime. 7. Hypothyroidism-- TSH here 6.94 with low FT3 and normal FT4 c/w Euthyroid sick syndrome -continue levothyroxine sodium 75 g by mouth daily. GERD--continue pantoprazole and increased to 40 mg by mouth twice a day. Proph-SCD to rt leg, heparin gtt, PPI Dispo- Full code PT/OT evals
[2016-12-20] MEDS ORDERED: NURSING VERBAL MED ORDER ONE (10:15)
--- NOTE | 2016-12-20 10:45 | DIAGNOSTIC IMAGING REPORT ---
ABDOMEN 2VIEW W/PA CHEST RTN CLINICAL HISTORY: nausea/vomiting COMPARISON STUDY: Chest x-ray dated 12/14/2016 FINDINGS: The cardiac and mediastinal contours remain stable. There is improving interstitial pulmonary edema. There are small bilateral pleural effusions. There is no free air. There is evidence of fecal impaction with dilated stool-filled colonic loops. There are multiple colonic air-fluid levels. IMPRESSION: 1. Dilated stool filled colonic loops indicative of fecal impaction. 2. No free air identified 3. Improving interstitial pulmonary edema with small bilateral pleural effusions Electronically signed by: Logan Fuller M.D. 12/20/2016 10:43 AM Dictated Date/Time: 12/20/2016 10:35 AM
--- NOTE | 2016-12-20 11:22 | PROGRESS NOTE ---
DATE: 12/20/2016 SUBJECTIVE: The patient has been taking Colyte and has had some vomiting. Her belly film from today shows that she still has multiple areas of stool-filled colon with persistent fecal impaction. IMPRESSION: The patient has constipation with fecal impaction. I plan on continuing her bowel prep as planned and if she still has a lot of stool on Wednesday, will probably plan to do a disimpaction under sedation rather than a colonoscopy and then continue to try to prep her for colonoscopy later in the week. If she is cleaned out on Wednesday, we will proceed with colonoscopy.
--- NOTE | 2016-12-20 12:03 | Nephrology Progress Note ---
Nephrology Progress Note Date of Service Dec 20, 2016. Chief Complaint ANA PAULA Subjective Loose stool and vomiting noted overnight. Appetite remains poor. Oral solute intake minimal. Anusha denies abdominal pain but reports feeling very tired. No melena or hematochezia reported. Colon prep continues. Review of Systems A complete review of systems was performed. Pertinent positives are noted above. All other systems are negative. Vital Signs Last 8 Hrs Date Time Temp Pulse Resp B/P (MAP) Pulse Ox O2 Delivery O2 Flow Rate FiO2 12/20/16 07:35 Room Air 12/20/16 07:29 116/56 (76) 12/20/16 07:12 36.0 73 20 117/45 (69) 94 Room Air Last Recorded Weight Weight (Kilograms): 54.500 Physical Exam General Appearance: no apparent distress, + pertinent finding Head: normocephalic, atraumatic Eyes: normal inspection, sclerae normal ENT: normal ENT inspection, + pertinent finding (oral mucosa dry, no oral lesions) Neck: supple, no JVD Respiratory/Chest: lungs clear Cardiovascular: regular rate, rhythm, no gallop Abdomen/GI: + distended, + pertinent finding (hypoactive bowel sounds) Genitourinary - Female: + pertinent finding (Hu catheter) Extremities/Musculoskelatal: normal capillary refill, + pedal edema Neurologic/Psych: alert, oriented x 3 Family History Heart disease Social History Drug Use: none Marital Status: Housing Status: lives with family 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 Laboratory Results Past 24 Hours 12/20/16 06:05 Red Blood Count 3.06, Mean Corpuscular Volume 90.8, Mean Corpuscular Hemoglobin 30.1, Mean Corpuscular Hemoglobin Concent 33.1, Mean Platelet Volume 9.0 12/19/16 17:25 12/20/16 06:05 Test 12/19/16 16:38 12/19/16 17:25 12/19/16 19:54 12/20/16 06:05 Bedside Glucose 138 mg/dl (70-90) 171 mg/dl (70-90) Anion Gap 13.0 mmol/L (3-11) 16.0 mmol/L (3-11) Est Creatinine Clear Calc Drug Dose 19.7 ml/min 19.7 ml/min Estimated GFR () 30.7 30.7 Estimated GFR (Non- 26.5 26.5 BUN/Creatinine Ratio 18.1 (10-20) 18.0 (10-20) Calcium Level 7.2 mg/dl (8.5-10.1) 7.2 mg/dl (8.5-10.1) White Blood Count 8.90 K/uL (4.8-10.8) Red Blood Count 3.06 M/uL (4.2-5.4) Hemoglobin 9.2 g/dL (12.0-16.0) Hematocrit 27.8 % (37-47) Mean Corpuscular Volume 90.8 fL (80-100) Mean Corpuscular Hemoglobin 30.1 pg (25-34) Mean Corpuscular Hemoglobin Concent 33.1 g/dl (32-36) Platelet Count 177 K/uL (130-400) Mean Platelet Volume 9.0 fL (7.4-10.4) RDW Standard Deviation 46.8 fL (36.4-46.3) RDW Coefficient of Variation 14.1 % (11.5-14.5) Neutrophils % (Manual) 95.7 % Lymphocytes % (Manual) 2.6 % Monocytes % (Manual) 1.7 % Neutrophils # (Manual) 8.52 K/uL (1.4-6.5) Total Absolute Neutrophils 8.52 K/uL (1.4-6.5) Lymphocytes # (Manual) 0.23 K/uL (1.2-3.4) Total Absolute Lymphocytes 0.23 K/uL (1.2-3.4) Monocytes # (Manual) 0.15 K/uL (0.11-0.59) Toxic Granulation 1+ Spherocytes 1+ Echinocytes 1+ Activated Partial Thromboplast Time 47.9 SECONDS (21.0-31.0) Partial Thromboplastin Ratio 1.8 Phosphorus Level 3.5 mg/dl (2.5-4.9) Magnesium Level 2.3 mg/dl (1.8-2.4) Albumin 2.2 gm/dl (3.4-5.0) Test 12/20/16 07:25 12/20/16 09:30 12/20/16 11:32 Bedside Glucose 213 mg/dl (70-90) 280 mg/dl (70-90) Urine Osmolality 443 mOms/kg (500-800) Urine Random Sodium < 5 mEq/L Urine Random Potassium 74.5 mEq/L Allergies Coded Allergies: Doxycycline (Verified Allergy, Intermediate, RASH, 12/15/16) Trimethoprim (Verified Allergy, Intermediate, RASH, 12/15/16) Adhesives (Verified Allergy, Unknown, HAD RXN TO HOLTER MONITOR PATCHES, ) Amoxicillin (Verified Allergy, Unknown, RASH, 12/15/16) Atorvastatin (Verified Allergy, Unknown, UNKNOWN, 12/15/16) Carbamazepine (Verified Allergy, Unknown, 12/14/16) Hydantoins (Verified Allergy, Unknown, 12/14/16) Levofloxacin (Verified Allergy, Unknown, UNKNOWN, 12/15/16) Penicillins (Verified Allergy, Unknown, AMOXIL,HAS TOLERATED CEPHS, 12/15/16 ) has tolerated cefepime and ceftriaxone on previous admissions Phenytoin (Verified Allergy, Unknown, 12/14/16) Sulfamethoxazole w/Trimethoprim (Unverified Allergy, Unknown, VASCULITIS, 12/14/16) Medications Current Inpatient Medications Medications (Trade) Dose Ordered Sig/Phillip Route Start Time Stop Time Status Last Admin Dose Admin Acetaminophen (Tylenol Tab) 650 mg Q4H PRN PO 12/14/16 17:00 01/13/17 16:59 12/19/16 11:45 650 MG Cholecalciferol (Vitamin D Tab) 2,000 inter.unit DAILY PO 12/15/16 08:00 01/14/17 08:59 12/20/16 09:23 2,000 INTER.UNIT Cyanocobalamin (Vitamin B-12 Tab) 1,000 mcg DAILY PO 12/15/16 08:00 01/14/17 08:59 12/20/16 09:20 1,000 MCG Diltiazem HCl (TIAzac CAP) 240 mg DAILY PO 12/15/16 08:00 01/14/17 08:59 Future hold 12/19/16 08:34 240 MG Docusate Sodium (coLACE CAP) 100 mg BID PO 12/14/16 20:00 01/13/17 20:59 12/20/16 09:20 100 MG Levothyroxine Sodium (Synthroid Tab) 75 mcg DAILYBB PO 12/15/16 06:30 01/14/17 06:29 Future Hold 12/17/16 06:16 75 MCG Nystatin (Mycostatin Susp) 5 ml QID PO 12/14/16 19:00 12/24/16 18:59 12/20/16 09:20 5 ML Pravastatin Sodium (Pravachol Tab) 20 mg HS PO 12/14/16 21:00 01/13/17 20:59 12/19/16 20:17 20 MG Mupirocin (Bactroban 2% Oint) 1 appln DAILY EXT 12/15/16 08:00 01/14/17 07:59 12/20/16 09:22 1 APPLN Heparin Sodium/ Dextrose 500 ml @ 13 mls/hr Q24H PRN IV 12/15/16 01:00 01/14/17 00:59 12/19/16 05:46 13 MLS/HR Polyethylene (Miralax Powder Packet) 17 gm BID PO 12/15/16 20:00 01/14/17 08:59 Future Hold 12/16/16 07:28 17 GM Morphine Sulfate (MoRPHine SULFATE INJ) 2 mg Q4H PRN IV 12/15/16 12:00 12/29/16 11:59 Miscellaneous (Soap Suds Enema) 1 ea DAILY PRN GA 12/16/16 14:00 01/15/17 13:59 12/19/16 16:05 1 EA Mineral Oil (Fleet Oil Enema) 133 ml DAILY PRN GA 12/16/16 14:15 01/15/17 14:14 12/19/16 20:18 133 ML Ondansetron HCl (Zofran Inj) 4 mg Q8H PRN IV 12/16/16 19:30 01/15/17 19:29 12/19/16 16:05 4 MG Sodium Chloride 1,000 ml @ 75 mls/hr [id number] IV 12/17/16 07:45 01/16/17 07:44 Future Hold 12/17/16 21:34 75 MLS/HR Pantoprazole Sodium (Protonix Tab) 40 mg BID PO 12/17/16 20:00 01/16/17 19:59 12/20/16 09:23 40 MG Levothyroxine Sodium (Synthroid Tab) 75 mcg DAILYBB PO 12/18/16 06:30 01/17/17 06:29 12/20/16 09:20 75 MCG Sodium Biphosphate/ Sodium Phosphate (Fleet Enema) 132 ml TODAY@0800 ONCE GA 12/21/16 08:00 12/21/16 08:01 Bisacodyl (Dulcolax Supp) 10 mg HS PRN GA 12/18/16 15:30 01/13/17 16:59 Potassium Chloride (Klor-Con Tab) 40 meq BID PO 12/19/16 09:15 01/18/17 09:14 12/20/16 09:24 40 MEQ Enteral Nutritional Formula (Boost Breeze Nutritional Drink) 1 box TID PO 12/20/16 14:00 01/19/17 13:59 Impression (1) Hyponatremia (2) ANA PAULA (acute kidney injury) (3) Hypertension Nos (4) Anemia (5) Obstipation Anusha is a 86-year-old female admitted to the hospital with constipation and fecal impaction. On admission creatinine was at baseline of 1.6. Anusha unfortunately developed acute kidney injury and creatinine peaked at 2.4 mg/dL on 12/18/16. It has improved to 1.7 this morning. She has been non oliguric but remained in a positive fluid balance. ANA PAULA consistent with resolving ATN ( suspected due to hemodynamic injury). His has an history of imaging documenting chronic mild right-sided hydronephrosis. CT of the abdomen pelvis on admission revealed left-sided moderate hydronephrosis which persisted on US obtained on 12/17/16. Anusha developed hyponatremia. Her oral mucosa is dry. Oral intake is poor. She has increased GI losses. She does have evidence of TBW in the form of dependent edema associated with hypoalbuminemia. Urine osmolality remains inappropriately high consistent with tubular injury or high ADH state. Urine sodium and potassium both low consistent with prerenal/sodium avid state. Currently with multiple medical problem including constipation, anemia with possible UGI bleed, had EGD on 12/17/16 showing showing esophagitis, HH and a gastric polyp. FOBT negative but with severe constipation and anemia concern for colonic pathology remains. Found to have obstructed cystic duct. On admission she was also found to have acute lower extremity DVT and started on heparin drip. Anusha has baseline stage 3 chronic kidney disease (creatinine 1.4-1.6), prior history of nephrotic syndrome and recovery from ANA PAULA requiring dialysis in 2007. She has a history of seizure disorder, severe aortic stenosis and pulmonary embolism. Recommendations -- Maintain even to slightly positive fluid balance, dietary free water restriction of 1500 ml -- Additional 40 mEq KCl this morning -- Continue 40 mEq KCl BID -- Start NaCl tablets (1 gram TID) -- Encourage protein/solute intake -- Repeat metabolic profile this afternoon -- Medications are appropriate for renal function
[2016-12-20] MEDS: SODIUM CHLORIDE 1 GM TAB PO SCH ×2 (13:42→20:53)
[2016-12-20] MEDS: SOAP SUDS ENEMA PR PRN (14:23)
[2016-12-20 15:45] VITALS: BP 141/68; PULSE 103; TEMP 36.3; O2SAT 90
[2016-12-20 17:23] LABS: CALCIUM 7.2 mg/dl (8.5-10.1); CREATININE 1.6 mg/dl (0.60-1.20); POTASSIUM 3.7 mmol/L (3.5-5.1)
[2016-12-20] MEDS: HEPARIN 25,000 UNIT/500ML D5W 500 ML IV PRN (18:25)
[2016-12-20] MEDS: PRAVASTATIN SOD 20 MG TAB PO SCH (20:53)
[2016-12-20 23:55] VITALS: BP 116/56; PULSE 99; TEMP 36.7; O2SAT 93
[2016-12-21] VITALS (8 sets, daily range): BP systolic 116–149; BP diastolic 56–80; PULSE 90–107; TEMP 36.5–36.8; O2SAT 92–98
[2016-12-21] MEDS: LEVOTHYROXINE 75 MCG TAB PO SCH (06:30)
--- NOTE | 2016-12-21 07:17 | DIAGNOSTIC IMAGING REPORT ---
[facility] CLINICAL HISTORY: stool impaction obstruction COMPARISON STUDY: 12/20/2016 FINDINGS: Unchanged fecal impaction. Slight bowel distention proximal to this level. Bilateral hip replacements. No secondary evidence for free air. IMPRESSION: Unchanged fecal impaction. Electronically signed by: Kirill Escoto M.D. 12/21/2016 7:16 AM Dictated Date/Time: 12/21/2016 7:15 AM
[2016-12-21 07:25] LABS: HEMATOCRIT 24.8 % (37-47); MEAN CELL VOLUME 89.5 fL (80-100); MEAN CORPUSCULAR HGB CONC 33.5 g/dl (32-36); MEAN PLATELET VOLUME 9.1 fL (7.4-10.4); PLATELET COUNT 143 K/uL (130-400); RED BLOOD COUNT 2.77 M/uL (4.2-5.4); WHITE BLOOD COUNT 11.98 K/uL (4.8-10.8)
[2016-12-21 07:38] LABS: PARTIAL THROMBOPLASTIN RATIO 2.2
--- NOTE | 2016-12-21 07:51 | Hospitalist Progress Note ---
Hospitalist Progress Note Date of Service Dec 21, 2016. (Kamla Omalley PA-C) Subjective Pt evaluation today including: conversation w/ patient, physical exam, chart review, lab review, review of studies Pain: None PO Intake: Fair Voiding: no voiding problems The patient was seen and examined this morning. Pt reports doing ok today, she is very tired. She denies any acute abdominal complaints including pain, nausea , vomiting, diarrhea. She had a large bowel movement this morning but did not look at it so unsure of the characteristics. She denies chest pain or shortness of breath. She hasn't looked in a mirror lately, so is unaware that her skin is yellow-jelani. She called her son while at bedside, and I updated him on the phone. All of Travis's questions and concerns were answered. Constitutional: + fatigue, No fever, No chills, No sweats Eyes: No redness, No diplopia ENT: No nasal symptoms, No sore throat, No trouble swallowing Respiratory: No cough, No shortness of breath Cardiovascular: No chest pain, No palpitations Abdomen: No pain, No nausea, No vomiting, No diarrhea, No constipation Musculoskeletal: + swelling, No joint pain, No muscle pain Neurologic: No weakness, No numbness/tingling Endo: + fatigue Skin: No rash, No itch (Kamla Omalley PA-C) Objective Vital Signs Date Time Temp Pulse Resp B/P (MAP) Pulse Ox O2 Delivery O2 Flow Rate FiO2 12/21/16 02:17 93 Room Air 12/21/16 02:11 36.7 99 17 116/56 93 Room Air 2.0 12/20/16 23:59 Room Air 12/20/16 23:55 36.7 99 17 116/56 (76) 93 Room Air 12/20/16 20:00 Room Air 12/20/16 16:00 Room Air 12/20/16 15:45 36.3 103 20 141/68 (92) 90 Room Air (Kamla Omalley PA-C) Physical Exam General Appearance: WD/WN, no apparent distress, + thin, + pertinent finding ( Jaundiced) Eyes: PERRL, EOMI ENT: pharynx normal, + pertinent finding (hard of hearing) Neck: supple, no JVD Respiratory/Chest: no respiratory distress, no accessory muscle use, + pertinent finding (+ faint crackles bibasilarly, otherwise clear throughout ) Cardiovascular: + systolic murmur (II/IV), + irregularly irregular Abdomen: normal bowel sounds, non tender, soft, no organomegaly Extremities: non-tender, no calf tenderness, + pedal edema (2+ pitting BLE. SCD on the right and not the left leg. ) Neurologic/Psychiatric: alert, oriented x 3 Skin: warm/dry, + jaundice (Kamla Omalley PA-C) Laboratory Results Last 24 Hours Test 12/20/16 09:30 12/20/16 11:32 12/20/16 12:04 12/20/16 16:33 Urine Osmolality 443 mOms/kg Urine Random Sodium < 5 mEq/L Urine Random Potassium 74.5 mEq/L Bedside Glucose 280 mg/dl 230 mg/dl Hemoglobin 8.2 g/dL Hematocrit 25.0 % Total Bilirubin 6.7 mg/dl Direct Bilirubin 5.7 mg/dl Aspartate Amino Transf (AST/SGOT) 103 U/L Alanine Aminotransferase (ALT/SGPT) 78 U/L Alkaline Phosphatase 226 U/L Total Protein 4.5 gm/dl Albumin 1.9 gm/dl Test 12/20/16 16:56 12/20/16 20:20 12/21/16 07:14 Sodium Level 131 mmol/L Potassium Level 3.7 mmol/L Chloride Level 95 mmol/L Carbon Dioxide Level 23 mmol/L Anion Gap 13.0 mmol/L Blood Urea Nitrogen 34 mg/dl Creatinine 1.60 mg/dl Est Creatinine Clear Calc Drug Dose 20.9 ml/min Estimated GFR () 33.0 Estimated GFR (Non- 28.5 BUN/Creatinine Ratio 21.0 Random Glucose 191 mg/dl Calcium Level 7.2 mg/dl Bedside Glucose 222 mg/dl White Blood Count 11.98 K/uL Red Blood Count 2.77 M/uL Hemoglobin 8.3 g/dL Hematocrit 24.8 % Mean Corpuscular Volume 89.5 fL Mean Corpuscular Hemoglobin 30.0 pg Mean Corpuscular Hemoglobin Concent 33.5 g/dl RDW Standard Deviation 47.3 fL RDW Coefficient of Variation 14.3 % Platelet Count 143 K/uL Mean Platelet Volume 9.1 fL (Kamla Omalley, SANGITA) Assessment and Plan 86 yo female with a 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 PT was manually disimpacted in ER successfully. Hemoccult negative, continues to be anemic. Pt developed acute hypoxemic respiratory failure after admission requiring NRB facemask, likely secondary to flash Pulm edema from fluid overload in setting of severe . LLE edema found on admission and Doppler confirms Acute DVT LLE. Also incidentally noted to have choledocholithiasis on CT scan abd/pel on admission as well as cholelithiasis and mild-mod left hydronephrosis, severe fecal impaction. Her LFTs trended upward with total and direct bilirubin so General Surgery was consulted for possible ERCP/ Cholecystectomy. Obstipation/Fecal impaction/Abd pain/Sterile colitis/ choledocholithiasis with dilated CBD - s/p manual disimpaction - Abd pain now resolved after trials of enemas/disimpaction/bowel regimen. - Plan for colonoscopy to disimpact fecolith today. - Had hematemesis/coffee ground emesis on 12/17, heparin gtt held, then restarted after that resolved and Hgb stable, Pt continues to have recurrent hematemesis per nursing on 12/20. - With h/o recent GI bleed on previous admission and severe constipation--> question if has colon CA? - EGD completed on 12/17 showing LA Grade C reflux esophagitis, hiatal hernia and few gastric polyps. Elevated bilirubin - Total bili up to 7.0, +jaundice, but patient is denying any abdominal c/o - Added on cefoxitime d/t pts allergies and will cover for necrotizing cholecystitis - Gen surg consulted for ERCP - they agree this should be done, also spoke with Dr. Macias who plans on disimpaction with colonoscopy today and then will address elevated bili. Hematemesis- likely from esophagitis with wretching - following H/H at 1200, stop heparin gtt if dropping - GI on board - Pt scheduled for Colonoscopy today, finished Go-lytely prep overnight and had large brown bm this morning - still on schedule for scope to disimpact, not diagnostic. - Nutrition input appreciated-Boost Breeze,prealbumin is low. ? TPN Urinary retention secondary to constipation-pt cut her Hu with scissors with episode of delirium-> retention resolved with Hu Hu replaced 12/19 as was continuing to require straight cath qshift Acute LLE DVT, POA/Anemia - could be provoked by recent hospital stays but also with h/o PEs and nephrotic syndrome putting her at increased risk for recurrence. - Hematemesis --> heparin gtt was on hold x 1 day, then restarted, had recurrent hematemesis on 12/20, denies any today. - Follow H&H -continue heparin gtt and after procedures, consider transition to Coumadin for DVT in case of need for reversal if future bleed -Consult to Heme appreciated -consider IVC filter placement if continued GI bleeding-d/w pt and son ANA PAULA on CKD stage III, Membranous GN/Nephrotic Syndrome, h/o HD and AIN in 2008, Mild-mod left hydroureteronephrosis, Hyponatremia, Hypokalemia - ANA PAULA resolved. - Kelly may be from severe constipation and urinary retention - Water [employer] at baseline - Nephro on board- appreciate - avoid nephrotoxins and renally dose all meds - fluid restrict to < 1500 ml/day Hypokalemia- -replace K+ with 40meq -consider adding NaCl tabs and low dose loop diuretic if Na+ not improving Severe ,Mod MR,Mild MS, HTN,CAD,PAF,h/o cerebellar CVA, acute hypoxemic resp failure secondary to acute on chronic diastolic CHF - Not on AC on admission likely due to h/o GI bleeding. - In past AVR has been discussed but thought to not be a great candidate given comorbidities - Cont O2 prn - continue diltiazem, statin - restart po lasix as per Nephro - Consult Cardiology for preop management appreciated Hypercholesterolemia - continue pravastatin 20 mg by mouth at bedtime. Hypothyroidism - TSH here 6.94 with low FT3 and normal FT4 c/w Euthyroid sick syndrome - continue levothyroxine sodium 75 g by mouth daily. GERD -continue pantoprazole and increased to 40 mg by mouth twice a day. DVT ppx: SCD to rt leg, heparin gtt, PPI Dispo- Full code Disposition: PT/OT evals, From home, colonscopy today for disimpaction, may need ERCP tomorrow pending GI eval, likely will need short term rehab/placement after stay (Kalma Omalley, SANGITA) PA Physician Supervision Note: I interviewed and examined the patient. Discussed with Shaunna Omalley PAC and agree with findings and plan as documented in the note. Any exceptions or clarifications are listed here: None this pt is lethargic and jaundiced, has creeping bilirubin and maybe concern for choledocholithiasis, GI will consider further evaluation after colonoscopy , antibiotics started, surgery is following. vitals stable abd is soft, NABS, ruq is slightly tender without rebound Cover with antibiotics, disempact, eval biliary tree, outlook is guarded Documented By: Pool Jarvis (Pool Jarvis M.D.)
[2016-12-21] MEDS: PANTOprazole SOD 40 MG TAB PO SCH ×2 (08:00→20:09)
[2016-12-21] MEDS: DILTIAZEM HCL 120 MG EXT REL CAP PO SCH (08:00)
[2016-12-21] MEDS: DOCUSATE SODIUM 100 MG CAP PO SCH ×2 (08:00→20:09)
[2016-12-21] MEDS: NYSTATIN SUSP 500,000 U/5 ML UDC PO SCH ×4 (08:00→20:08)
[2016-12-21] MEDS: SODIUM CHLORIDE 1 GM TAB PO SCH ×3 (08:00→20:10)
[2016-12-21] MEDS: CYANOCOBALAMIN 500 MCG TAB (VIT B-12) PO SCH (08:00)
[2016-12-21] MEDS: CHOLECALCIFEROL 1000 INTER.UNIT TAB PO SCH (08:00)
[2016-12-21] MEDS: BOOST BREEZE NUTRITION DRINK 1 BOX PO SCH ×3 (08:00→20:08)
[2016-12-21] MEDS ORDERED: SOD PHOSPHATE/SOD BIPHOSPHATE ENEMA 132 ML BTL PR ONE (08:00)
[2016-12-21 08:30] LABS: ALKALINE PHOSPHATASE 255 U/L (45-117); ALT/SGPT 92 U/L (12-78); AST/SGOT 104 U/L (15-37); BLOOD UREA NITROGEN 32 mg/dl (7-18); BUN/CREATININE RATIO 22.9 (10-20); CALCIUM 7.5 mg/dl (8.5-10.1); CARBON DIOXIDE 25 mmol/L (21-32); CHLORIDE 95 mmol/L (98-107); GLUCOSE 121 mg/dl (70-99); HDL CHOLESTEROL 13 mg/dl; PREALBUMIN 7.1 mg/dl (20-40); SODIUM 133 mmol/L (136-145)
[2016-12-21 08:35] LABS: PHOSPHORUS 2.3 mg/dl (2.5-4.9)
[2016-12-21] MEDS: MUPIROCIN 2% OINT 22 GM TUBE EXT SCH (09:45)
--- NOTE | 2016-12-21 10:21 | Nephrology Progress Note ---
Nephrology Progress Note Date of Service Dec 21, 2016. Chief Complaint ANA PAULA Ion Tavares is resting comfortably in bed this morning. She has had a couple of large bowel movements with a large amount of loose stool this morning. She denies pain. She is tired. She is completely NPO this morning for planned colonoscopy. No nausea. No fevers or chills. Review of Systems A complete review of systems was performed. Pertinent positives are noted above. All other systems are negative. Vital Signs Last 8 Hrs Date Time Temp Pulse Resp B/P (MAP) Pulse Ox O2 Delivery O2 Flow Rate FiO2 12/21/16 07:48 36.8 107 18 129/62 (84) 98 Room Air Last Recorded Weight Weight (Kilograms): 54.500 Physical Exam General Appearance: WD/WN, no apparent distress Head: normocephalic, atraumatic Eyes: normal inspection, sclerae normal ENT: normal ENT inspection, pharynx normal Neck: supple, no JVD Respiratory/Chest: lungs clear, no respiratory distress, no accessory muscle use Cardiovascular: regular rate, rhythm, no gallop Abdomen/GI: non tender, + distended Extremities/Musculoskelatal: normal inspection, + pedal edema Neurologic/Psych: alert, normal mood/affect Family History Heart disease Social History Drug Use: none Marital Status: Housing Status: lives with family 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 Laboratory Results Past 24 Hours 12/20/16 12:04 12/21/16 07:14 12/20/16 16:56 12/21/16 07:14 Test 12/20/16 11:32 12/20/16 12:04 12/20/16 16:33 12/20/16 16:56 Bedside Glucose 280 mg/dl (70-90) 230 mg/dl (70-90) Total Bilirubin 6.7 mg/dl (0.2-1) Direct Bilirubin 5.7 mg/dl (0-0.2) Aspartate Amino Transf (AST/SGOT) 103 U/L (15-37) Alanine Aminotransferase (ALT/SGPT) 78 U/L (12-78) Alkaline Phosphatase 226 U/L (45-117) Total Protein 4.5 gm/dl (6.4-8.2) Albumin 1.9 gm/dl (3.4-5.0) Anion Gap 13.0 mmol/L (3-11) Est Creatinine Clear Calc Drug Dose 20.9 ml/min Estimated GFR () 33.0 Estimated GFR (Non- 28.5 BUN/Creatinine Ratio 21.0 (10-20) Calcium Level 7.2 mg/dl (8.5-10.1) Test 12/20/16 20:20 12/21/16 07:14 12/21/16 07:40 Bedside Glucose 222 mg/dl (70-90) 146 mg/dl (70-90) Red Blood Count 2.77 M/uL (4.2-5.4) Mean Corpuscular Volume 89.5 fL (80-100) Mean Corpuscular Hemoglobin 30.0 pg (25-34) Mean Corpuscular Hemoglobin Concent 33.5 g/dl (32-36) RDW Standard Deviation 47.3 fL (36.4-46.3) RDW Coefficient of Variation 14.3 % (11.5-14.5) Mean Platelet Volume 9.1 fL (7.4-10.4) Activated Partial Thromboplast Time 58.3 SECONDS (21.0-31.0) Partial Thromboplastin Ratio 2.2 Anion Gap 13.0 mmol/L (3-11) Est Creatinine Clear Calc Drug Dose 23.9 ml/min Estimated GFR () 38.8 Estimated GFR (Non- 33.5 BUN/Creatinine Ratio 22.9 (10-20) Calcium Level 7.5 mg/dl (8.5-10.1) Phosphorus Level 2.3 mg/dl (2.5-4.9) Total Bilirubin 7.0 mg/dl (0.2-1) Direct Bilirubin 5.9 mg/dl (0-0.2) Aspartate Amino Transf (AST/SGOT) 104 U/L (15-37) Alanine Aminotransferase (ALT/SGPT) 92 U/L (12-78) Alkaline Phosphatase 255 U/L (45-117) Total Protein 4.9 gm/dl (6.4-8.2) Albumin 2.0 gm/dl (3.4-5.0) Prealbumin 7.1 mg/dl (20-40) Triglycerides Level mg/dl (0-150) Cholesterol Level mg/dl (0-200) HDL Cholesterol 13 mg/dl LDL Cholesterol, Calculated mg/dl VLDL Cholesterol, Calculated mg/dl Cholesterol/HDL Ratio Allergies Coded Allergies: Doxycycline (Verified Allergy, Intermediate, RASH, 12/15/16) Trimethoprim (Verified Allergy, Intermediate, RASH, 12/15/16) Adhesives (Verified Allergy, Unknown, HAD RXN TO [employer] PATCHES, ) Amoxicillin (Verified Allergy, Unknown, RASH, 12/15/16) Atorvastatin (Verified Allergy, Unknown, UNKNOWN, 12/15/16) Carbamazepine (Verified Allergy, Unknown, 12/14/16) Hydantoins (Verified Allergy, Unknown, 12/14/16) Levofloxacin (Verified Allergy, Unknown, UNKNOWN, 12/15/16) Penicillins (Verified Allergy, Unknown, AMOXIL,HAS TOLERATED CEPHS, 12/15/16 ) has tolerated cefepime and ceftriaxone on previous admissions Phenytoin (Verified Allergy, Unknown, 12/14/16) Sulfamethoxazole w/Trimethoprim (Unverified Allergy, Unknown, VASCULITIS, 12/14/16) Medications Current Inpatient Medications Medications (Trade) Dose Ordered Sig/Phillip Route Start Time Stop Time Status Last Admin Dose Admin Acetaminophen (Tylenol Tab) 650 mg Q4H PRN PO 12/14/16 17:00 01/13/17 16:59 12/19/16 11:45 650 MG Cholecalciferol (Vitamin D Tab) 2,000 inter.unit DAILY PO 12/15/16 08:00 01/14/17 08:59 12/20/16 09:23 2,000 INTER.UNIT Cyanocobalamin (Vitamin B-12 Tab) 1,000 mcg DAILY PO 12/15/16 08:00 01/14/17 08:59 12/20/16 09:20 1,000 MCG Diltiazem HCl (TIAzac CAP) 240 mg DAILY PO 12/15/16 08:00 01/14/17 08:59 Future hold 12/19/16 08:34 240 MG Docusate Sodium (coLACE CAP) 100 mg BID PO 12/14/16 20:00 01/13/17 20:59 12/20/16 20:55 100 MG Levothyroxine Sodium (Synthroid Tab) 75 mcg DAILYBB PO 12/15/16 06:30 01/14/17 06:29 Future Hold 12/17/16 06:16 75 MCG Nystatin (Mycostatin Susp) 5 ml QID PO 12/14/16 19:00 12/24/16 18:59 12/20/16 20:52 5 ML Pravastatin Sodium (Pravachol Tab) 20 mg HS PO 12/14/16 21:00 01/13/17 20:59 12/20/16 20:53 20 MG Mupirocin (Bactroban 2% Oint) 1 appln DAILY EXT 12/15/16 08:00 01/14/17 07:59 12/21/16 09:45 1 APPLN Heparin Sodium/ Dextrose 500 ml @ 13 mls/hr Q24H PRN IV 12/15/16 01:00 01/14/17 00:59 12/20/16 18:25 13 MLS/HR Polyethylene (Miralax Powder Packet) 17 gm BID PO 12/15/16 20:00 01/14/17 08:59 Future Hold 12/16/16 07:28 17 GM Morphine Sulfate (MoRPHine SULFATE INJ) 2 mg Q4H PRN IV 12/15/16 12:00 12/29/16 11:59 Miscellaneous (Soap Suds Enema) 1 ea DAILY PRN AK 12/16/16 14:00 01/15/17 13:59 12/20/16 14:23 1 EA Mineral Oil (Fleet Oil Enema) 133 ml DAILY PRN AK 12/16/16 14:15 01/15/17 14:14 12/19/16 20:18 133 ML Ondansetron HCl (Zofran Inj) 4 mg Q8H PRN IV 12/16/16 19:30 01/15/17 19:29 12/19/16 16:05 4 MG Sodium Chloride 1,000 ml @ 75 mls/hr [id number] IV 12/17/16 07:45 01/16/17 07:44 Future Hold 12/17/16 21:34 75 MLS/HR Pantoprazole Sodium (Protonix Tab) 40 mg BID PO 12/17/16 20:00 01/16/17 19:59 12/20/16 20:54 40 MG Levothyroxine Sodium (Synthroid Tab) 75 mcg DAILYBB PO 12/18/16 06:30 01/17/17 06:29 12/20/16 09:20 75 MCG Bisacodyl (Dulcolax Supp) 10 mg HS PRN AK 12/18/16 15:30 01/13/17 16:59 Enteral Nutritional Formula (Boost Breeze Nutritional Drink) 1 box TID PO 12/20/16 14:00 01/19/17 13:59 12/20/16 20:54 1 BOX Sodium Chloride (Sodium Chloride Tab) 1 gm TID PO 12/20/16 14:00 01/19/17 13:59 12/20/16 20:53 1 GM Potassium Chloride (Klor-Con Tab) 80 meq BID PO 12/21/16 20:00 01/18/17 09:14 UNV Impression (1) Hyponatremia (2) ANA PAULA (acute kidney injury) (3) Hypertension Nos (4) Anemia (5) Obstipation Anusha is a 86-year-old female admitted to the hospital with constipation and fecal impaction. On admission creatinine was at baseline of 1.6. Anusha unfortunately developed acute kidney injury and creatinine peaked at 2.4 mg/dL on 12/18/16. It has improved to baseline this morning. ANA PAULA consistent with resolving ATN (suspected due to hemodynamic injury). His has an history of imaging documenting chronic mild right-sided hydronephrosis. CT of the abdomen pelvis on admission revealed left-sided moderate hydronephrosis which persisted on US obtained on 12/17/16. Anusha developed hyponatremia. Her oral mucosa is dry. Oral intake is poor. She has increased GI losses. She does have evidence of TBW in the form of dependent edema associated with hypoalbuminemia. Urine osmolality remains inappropriately high consistent with tubular injury or high ADH state. Urine sodium and potassium both low consistent with prerenal/sodium avid state. Currently with multiple medical problem including constipation, anemia with possible UGI bleed, had EGD on 12/17/16 showing showing esophagitis, HH and a gastric polyp. FOBT negative but with severe constipation and anemia concern for colonic pathology remains. Found to have obstructed cystic duct. On admission she was also found to have acute lower extremity DVT and started on heparin drip. Anusha has baseline stage 3 chronic kidney disease (creatinine 1.4-1.6), prior history of nephrotic syndrome and recovery from ANA PAULA requiring dialysis in 2007. She has a history of seizure disorder, severe aortic stenosis and pulmonary embolism. Recommendations -- KCl 10 mEq x 2 this morning, restart oral KCl once able to take PO -- Continue NaCl tablets (1 gram TID) -- Encourage protein/solute intake once able -- Repeat metabolic profile this afternoon -- Medications are appropriate for renal function
[2016-12-21] MEDS: POTASSIUM CHLR 10 MEQ / WTR 10 MEQ in PREMIXED WATER 100 ML IV SCH ×4 (11:32→18:35)
[2016-12-21] MEDS: CEFOXITIN IV 1,000 MG in DEXTROSE 5% 50ML 50 ML IV SCH ×2 (12:53→23:45)
--- NOTE | 2016-12-21 14:10 | Medical Consult ---
Consultation Date of Consultation: Dec 21, 2016. Attending Physician: Pool Jarvis M.D. History of Present Illness 86 y/o female admitted 1 week ago for obstipation, dehydration. Had not had BM for several days. Was taking some clears. GI has been following her for this, possible colonoscopy in the near future. She had large BM today. We were asked to see for cholelithiasis, choledocholithiasis, jaundice. She denies RUQ pain now and reports no history of biliary colic. GI also following for this, considering ERCP. 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 Surgical: appendectomy Family History Heart disease Social History Smoking Status: Never Smoker Drug Use: none Marital Status: Housing Status: lives alone Occupation Status: retired Allergies Coded Allergies: Doxycycline (Verified Allergy, Intermediate, RASH, 12/15/16) Trimethoprim (Verified Allergy, Intermediate, RASH, 12/15/16) Adhesives (Verified Allergy, Unknown, HAD RXN TO HOLTER MONITOR PATCHES, ) Amoxicillin (Verified Allergy, Unknown, RASH, 12/15/16) Atorvastatin (Verified Allergy, Unknown, UNKNOWN, 12/15/16) Carbamazepine (Verified Allergy, Unknown, 12/14/16) Hydantoins (Verified Allergy, Unknown, 12/14/16) Levofloxacin (Verified Allergy, Unknown, UNKNOWN, 12/15/16) Penicillins (Verified Allergy, Unknown, AMOXIL,HAS TOLERATED CEPHS, 12/15/16 ) has tolerated cefepime and ceftriaxone on previous admissions Phenytoin (Verified Allergy, Unknown, 12/14/16) Sulfamethoxazole w/Trimethoprim (Unverified Allergy, Unknown, VASCULITIS, 12/14/16) Current Inpatient Medications Current Inpatient Medications Medications (Trade) Dose Ordered Sig/Phillip Route Start Time Stop Time Status Last Admin Dose Admin Acetaminophen (Tylenol Tab) 650 mg Q4H PRN PO 12/14/16 17:00 01/13/17 16:59 12/19/16 11:45 650 MG Cholecalciferol (Vitamin D Tab) 2,000 inter.unit DAILY PO 12/15/16 08:00 01/14/17 08:59 12/20/16 09:23 2,000 INTER.UNIT Cyanocobalamin (Vitamin B-12 Tab) 1,000 mcg DAILY PO 12/15/16 08:00 01/14/17 08:59 12/20/16 09:20 1,000 MCG Diltiazem HCl (TIAzac CAP) 240 mg DAILY PO 12/15/16 08:00 01/14/17 08:59 Future hold 12/19/16 08:34 240 MG Docusate Sodium (coLACE CAP) 100 mg BID PO 12/14/16 20:00 01/13/17 20:59 12/20/16 20:55 100 MG Levothyroxine Sodium (Synthroid Tab) 75 mcg DAILYBB PO 12/15/16 06:30 01/14/17 06:29 Future Hold 12/17/16 06:16 75 MCG Nystatin (Mycostatin Susp) 5 ml QID PO 12/14/16 19:00 12/24/16 18:59 12/20/16 20:52 5 ML Pravastatin Sodium (Pravachol Tab) 20 mg HS PO 12/14/16 21:00 01/13/17 20:59 12/20/16 20:53 20 MG Mupirocin (Bactroban 2% Oint) 1 appln DAILY EXT 12/15/16 08:00 01/14/17 07:59 12/21/16 09:45 1 APPLN Heparin Sodium/ Dextrose 500 ml @ 13 mls/hr Q24H PRN IV 12/15/16 01:00 01/14/17 00:59 12/20/16 18:25 13 MLS/HR Polyethylene (Miralax Powder Packet) 17 gm BID PO 12/15/16 20:00 01/14/17 08:59 Future Hold 12/16/16 07:28 17 GM Morphine Sulfate (MoRPHine SULFATE INJ) 2 mg Q4H PRN IV 12/15/16 12:00 12/29/16 11:59 Miscellaneous (Soap Suds Enema) 1 ea DAILY PRN IA 12/16/16 14:00 01/15/17 13:59 12/20/16 14:23 1 EA Mineral Oil (Fleet Oil Enema) 133 ml DAILY PRN IA 12/16/16 14:15 01/15/17 14:14 12/19/16 20:18 133 ML Ondansetron HCl (Zofran Inj) 4 mg Q8H PRN IV 12/16/16 19:30 01/15/17 19:29 12/19/16 16:05 4 MG Sodium Chloride 1,000 ml @ 75 mls/hr [id number] IV 12/17/16 07:45 01/16/17 07:44 Future Hold 12/17/16 21:34 75 MLS/HR Pantoprazole Sodium (Protonix Tab) 40 mg BID PO 12/17/16 20:00 01/16/17 19:59 12/20/16 20:54 40 MG Levothyroxine Sodium (Synthroid Tab) 75 mcg DAILYBB PO 12/18/16 06:30 01/17/17 06:29 12/20/16 09:20 75 MCG Bisacodyl (Dulcolax Supp) 10 mg HS PRN IA 12/18/16 15:30 01/13/17 16:59 Enteral Nutritional Formula (Boost Breeze Nutritional Drink) 1 box TID PO 12/20/16 14:00 01/19/17 13:59 12/20/16 20:54 1 BOX Sodium Chloride (Sodium Chloride Tab) 1 gm TID PO 12/20/16 14:00 01/19/17 13:59 12/20/16 20:53 1 GM Potassium Chloride (Klor-Con Tab) 80 meq BID PO 12/21/16 20:00 12/23/16 19:59 Potassium Chloride 10 meq/ Prmx 100 ml @ 100 mls/hr Q1H IV 12/21/16 11:00 12/21/16 14:59 12/21/16 12:53 100 MLS/HR Cefoxitin Sodium 1000 mg/Dextrose 60 ml @ 100 mls/hr Q12H IV 12/21/16 12:00 12/31/16 11:59 12/21/16 12:53 100 MLS/HR Review of Systems Constitutional: No fever, No chills Abdomen: No pain, No nausea, No vomiting Physical Exam Date Time Temp Pulse Resp B/P (MAP) Pulse Ox O2 Delivery O2 Flow Rate FiO2 12/21/16 08:00 98 Room Air 12/21/16 07:48 36.8 107 18 129/62 (84) 98 Room Air 12/21/16 02:17 93 Room Air 12/21/16 02:11 36.7 99 17 116/56 93 Room Air 2.0 12/20/16 23:59 Room Air 12/20/16 23:55 36.7 99 17 116/56 (76) 93 Room Air 12/20/16 20:00 Room Air 12/20/16 16:00 Room Air 12/20/16 15:45 36.3 103 20 141/68 (92) 90 Room Air General Appearance: WD/WN Abdomen/GI: non tender, soft, + distended (slightly) Laboratory Results Last 24 Hours Test 12/20/16 16:33 12/20/16 16:56 12/20/16 20:20 12/21/16 07:14 Bedside Glucose 230 mg/dl 222 mg/dl Sodium Level 131 mmol/L 133 mmol/L Potassium Level 3.7 mmol/L 3.0 mmol/L Chloride Level 95 mmol/L 95 mmol/L Carbon Dioxide Level 23 mmol/L 25 mmol/L Anion Gap 13.0 mmol/L 13.0 mmol/L Blood Urea Nitrogen 34 mg/dl 32 mg/dl Creatinine 1.60 mg/dl 1.40 mg/dl Est Creatinine Clear Calc Drug Dose 20.9 ml/min 23.9 ml/min Estimated GFR () 33.0 38.8 Estimated GFR (Non- 28.5 33.5 BUN/Creatinine Ratio 21.0 22.9 Random Glucose 191 mg/dl 121 mg/dl Calcium Level 7.2 mg/dl 7.5 mg/dl White Blood Count 11.98 K/uL Red Blood Count 2.77 M/uL Hemoglobin 8.3 g/dL Hematocrit 24.8 % Mean Corpuscular Volume 89.5 fL Mean Corpuscular Hemoglobin 30.0 pg Mean Corpuscular Hemoglobin Concent 33.5 g/dl RDW Standard Deviation 47.3 fL RDW Coefficient of Variation 14.3 % Platelet Count 143 K/uL Mean Platelet Volume 9.1 fL Activated Partial Thromboplast Time 58.3 SECONDS Partial Thromboplastin Ratio 2.2 Phosphorus Level 2.3 mg/dl Total Bilirubin 7.0 mg/dl Direct Bilirubin 5.9 mg/dl Aspartate Amino Transf (AST/SGOT) 104 U/L Alanine Aminotransferase (ALT/SGPT) 92 U/L Alkaline Phosphatase 255 U/L Total Protein 4.9 gm/dl Albumin 2.0 gm/dl Prealbumin 7.1 mg/dl Triglycerides Level mg/dl Cholesterol Level mg/dl HDL Cholesterol 13 mg/dl LDL Cholesterol, Calculated mg/dl VLDL Cholesterol, Calculated mg/dl Cholesterol/HDL Ratio Test 12/21/16 07:40 12/21/16 13:18 Bedside Glucose 146 mg/dl CT IMPRESSION: 1. Findings consistent with fecal impaction. Massive amount of stool within the rectum with large amount of stool within the colon. Minimal adjacent infiltration is nonspecific but could reflect a colitis related to the fecal impaction. 2. Choledocholithiasis and cholelithiasis with moderate biliary ductal dilatation. 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 3. Mild left hydroureteronephrosis of uncertain etiology. 4. Moderate sized hiatal hernia. Electronically signed by: Jason Arzola M.D. 12/14/2016 1:24 PM Dictated Date/Time: 12/14/2016 1:05 PM HEPATOBILIARY HIDA IMAGING CLINICAL HISTORY: CHOLELITHIASIS COMPARISON STUDY: CT scan dated 12/14/2016 FINDINGS: The patient was injected with 5 mCi of technetium 99m Choletec. Sequential anterior imaging was performed. Imaging out to 1 hour reveal nonvisualization of the gallbladder. The common bile duct appeared dilated. There was evidence of activity within small bowel. At 1 hour the patient was administered 2 mg of intravenous morphine. Imaging for additional 30 minutes was performed. The gallbladder was nonvisualized. IMPRESSION: 1. Nonvisualization the gallbladder. This suggests cystic duct obstruction. 2. Biliary ductal dilatation. Electronically signed by: Logan Fuller M.D. 12/15/2016 10:06 AM Assessment & Plan cholelithiasis, CBD obstruction, chronic vs acute paige Afebrile, WBC stable, no urgency for cholecystectomy. Colonoscopy per GI, will discuss possible ERCP. Consider eventual lap paige if able to clear CBD. She was very somnolent at the time of my exam, unsure if she would be a candidate for open paige/CBD exploration. Will continue to follow and discuss with primary and other consultants.
[2016-12-21] MEDS ORDERED: PROPOFOL IV EMULSION 10 MG/ML 20 ML VIAL IV ONE (15:13)
--- NOTE | 2016-12-21 15:20 | Endo History and Physical ---
History & Physical Date of Service: Dec 21, 2016. Chief Complaint: fecal impaction Referring Physician: Dr Serna History of Present Illness For fecal disimpaction Past Medical History Atrial Fibrillation, Osteoporosis, CHF, Hypertension, Kidney Disease, CVA/TIA Past Surgical History Hx Cardiac Surgery: No Hx Abdominal Surgery: Yes (appendectomy) Hx Post-Op Nausea and Vomiting: No Hx Cancer Surgery: No Hx Thoracic Surgery: No Hx Orthopedic: Yes (bilateral hip ) Hx Urinary Tract Surgery: Yes (hysterectomy complete ) Social History Smoking Status: Never Smoker Hx Substance Use: No Hx Alcohol Use: No Allergies Coded Allergies: Doxycycline (Verified Allergy, Intermediate, RASH, 12/15/16) Trimethoprim (Verified Allergy, Intermediate, RASH, 12/15/16) Adhesives (Verified Allergy, Unknown, HAD RXN TO HOLTER MONITOR PATCHES, ) Amoxicillin (Verified Allergy, Unknown, RASH, 12/15/16) Atorvastatin (Verified Allergy, Unknown, UNKNOWN, 12/15/16) Carbamazepine (Verified Allergy, Unknown, 12/14/16) Hydantoins (Verified Allergy, Unknown, 12/14/16) Levofloxacin (Verified Allergy, Unknown, UNKNOWN, 12/15/16) Penicillins (Verified Allergy, Unknown, AMOXIL,HAS TOLERATED CEPHS, 12/15/16 ) has tolerated cefepime and ceftriaxone on previous admissions Phenytoin (Verified Allergy, Unknown, 12/14/16) Sulfamethoxazole w/Trimethoprim (Unverified Allergy, Unknown, VASCULITIS, 12/14/16) Current Medications Reported Home Medications Medications Dose Route/Sig Max Daily Dose Days Date Category Prednisone 10 Mg Tab 10 Mg PO 12/14/16 Reported Klor-Con M20 (Potassium Chloride) 20 Meq Tabcr 20 Meq PO DAILY 12/14/16 Reported Nystatin Suspension (Nystatin) 1 Ml Susp 5 Ml PO QID 12/14/16 Reported Bactroban 2% (Mupirocin) 30 Gm Cr 1 Appln EXT UD 12/14/16 Reported Metamucil (Psyllium) 1 Waf Waf 2 Piece PO DAILY 12/14/16 Reported Lasix (Furosemide) 20 Mg Tab 40 Mg PO DAILY 12/14/16 Reported Docusate Sodium 100 Mg Cap 100 Mg PO DAILY 12/14/16 Reported Pravachol (Pravastatin Sodium) 20 Mg Tab 20 Mg PO HS 10/06/16 Reported Oxygen Gas 2 Liters NA PRN 365 09/29/16 Rx Vitamin D3 (Cholecalciferol) 1,000 Unit Tab 1 Tab PO DAILY 30 09/22/16 Reported Synthroid (Levothyroxine Sodium) 75 Mcg Tab 75 Mcg PO DAILY 09/22/16 Reported Vitamin B-12 (Cyanocobalamin) 1,000 Mcg Tab 1,000 Mcg PO DAILY 09/22/16 Reported Protonix (Pantoprazole Sodium) 20 Mg Tab 20 Mg PO BID 09/22/16 Reported Tiazac (Diltiazem HCl) 240 Mg Capcr 240 Mg PO DAILY 06/12/14 Reported Vital Signs Weight (Kilograms): 54.500 Height (Feet): 5 Height (Inches): 4.00 Date Time Temp Pulse Resp B/P (MAP) Pulse Ox O2 Delivery O2 Flow Rate FiO2 12/21/16 13:52 36.8 107 18 129/62 98 Room Air 12/21/16 08:00 98 Room Air 12/21/16 07:48 36.8 107 18 129/62 (84) 98 Room Air 12/21/16 02:17 93 Room Air 12/21/16 02:11 36.7 99 17 116/56 93 Room Air 2.0 12/20/16 23:59 Room Air 12/20/16 23:55 36.7 99 17 116/56 (76) 93 Room Air 12/20/16 20:00 Room Air 12/20/16 16:00 Room Air 12/20/16 15:45 36.3 103 20 141/68 (92) 90 Room Air Physical Exam General Appearance: WD/WN Respiratory/Chest: Respiratory effort: no dyspnea Cardiovascular: Heart Auscultation: RRR Abdomen: Bowel Sounds: pertinent finding (RLQ scar) Assessment and Plan For fecal disimpaction
[2016-12-21] MEDS ORDERED: LIDOCAINE HCL 2% 2 ML VIAL (20MG/ML) ONE (15:29)
[2016-12-21] MEDS ORDERED: PHENYLEPHRINE HCL INJ 10 MG/ML VIAL ONE (15:40)
[2016-12-21] MEDS ORDERED: ATROPINE SULFATE 0.1 MG/ML 5ML SYR IV PRN (16:15)
[2016-12-21] MEDS ORDERED: EpHEDrine SULFATE INJ 50 MG/ML AMP IV PRN (16:15)
--- NOTE | 2016-12-21 16:22 | Discharge Instructions ---
Endoscopy Patient Instructions Date / Procedure(s) Performed Dec 21, 2016. Colonoscopy, Other Allergy Information Coded Allergies: Doxycycline (Verified Allergy, Intermediate, RASH, 12/21/16) Trimethoprim (Verified Allergy, Intermediate, RASH, 12/21/16) Adhesives (Verified Allergy, Unknown, HAD RXN TO HOLTER MONITOR PATCHES, ) Amoxicillin (Verified Allergy, Unknown, RASH, 12/21/16) Atorvastatin (Verified Allergy, Unknown, UNKNOWN, 12/21/16) Carbamazepine (Verified Allergy, Unknown, 12/21/16) Hydantoins (Verified Allergy, Unknown, 12/21/16) Levofloxacin (Verified Allergy, Unknown, UNKNOWN, 12/21/16) Penicillins (Verified Allergy, Unknown, AMOXIL,HAS TOLERATED CEPHS, ) has tolerated cefepime and ceftriaxone on previous admissions Phenytoin (Verified Allergy, Unknown, 12/21/16) Sulfamethoxazole w/Trimethoprim (Unverified Allergy, Unknown, VASCULITIS, 12/21/16) Discharge Date / Findings Dec 21, 2016. No mass lesions Medication Instructions Restart Stopped Medication(s): resume meds Current Inpatient Medications Medications (Trade) Dose Ordered Sig/Phillip Route Start Time Stop Time Status Last Admin Dose Admin Acetaminophen (Tylenol Tab) 650 mg Q4H PRN PO 12/14/16 17:00 01/13/17 16:59 12/19/16 11:45 650 MG Cholecalciferol (Vitamin D Tab) 2,000 inter.unit DAILY PO 12/15/16 08:00 01/14/17 08:59 12/20/16 09:23 2,000 INTER.UNIT Cyanocobalamin (Vitamin B-12 Tab) 1,000 mcg DAILY PO 12/15/16 08:00 01/14/17 08:59 12/20/16 09:20 1,000 MCG Diltiazem HCl (TIAzac CAP) 240 mg DAILY PO 12/15/16 08:00 01/14/17 08:59 Future hold 12/19/16 08:34 240 MG Docusate Sodium (coLACE CAP) 100 mg BID PO 12/14/16 20:00 01/13/17 20:59 12/20/16 20:55 100 MG Levothyroxine Sodium (Synthroid Tab) 75 mcg DAILYBB PO 12/15/16 06:30 01/14/17 06:29 Future Hold 12/17/16 06:16 75 MCG Nystatin (Mycostatin Susp) 5 ml QID PO 12/14/16 19:00 12/24/16 18:59 12/20/16 20:52 5 ML Pravastatin Sodium (Pravachol Tab) 20 mg HS PO 12/14/16 21:00 01/13/17 20:59 12/20/16 20:53 20 MG Mupirocin (Bactroban 2% Oint) 1 appln DAILY EXT 12/15/16 08:00 01/14/17 07:59 12/21/16 09:45 1 APPLN Heparin Sodium/ Dextrose 500 ml @ 13 mls/hr Q24H PRN IV 12/15/16 01:00 01/14/17 00:59 12/20/16 18:25 13 MLS/HR Polyethylene (Miralax Powder Packet) 17 gm BID PO 12/15/16 20:00 01/14/17 08:59 Future Hold 12/16/16 07:28 17 GM Morphine Sulfate (MoRPHine SULFATE INJ) 2 mg Q4H PRN IV 12/15/16 12:00 12/29/16 11:59 Miscellaneous (Soap Suds Enema) 1 ea DAILY PRN OK 12/16/16 14:00 01/15/17 13:59 12/20/16 14:23 1 EA Mineral Oil (Fleet Oil Enema) 133 ml DAILY PRN OK 12/16/16 14:15 01/15/17 14:14 12/19/16 20:18 133 ML Ondansetron HCl (Zofran Inj) 4 mg Q8H PRN IV 12/16/16 19:30 01/15/17 19:29 12/19/16 16:05 4 MG Sodium Chloride 1,000 ml @ 75 mls/hr [id number] IV 12/17/16 07:45 01/16/17 07:44 Future Hold 12/17/16 21:34 75 MLS/HR Pantoprazole Sodium (Protonix Tab) 40 mg BID PO 12/17/16 20:00 01/16/17 19:59 12/20/16 20:54 40 MG Levothyroxine Sodium (Synthroid Tab) 75 mcg DAILYBB PO 12/18/16 06:30 01/17/17 06:29 12/20/16 09:20 75 MCG Bisacodyl (Dulcolax Supp) 10 mg HS PRN OK 12/18/16 15:30 01/13/17 16:59 Enteral Nutritional Formula (Boost Breeze Nutritional Drink) 1 box TID PO 12/20/16 14:00 01/19/17 13:59 12/20/16 20:54 1 BOX Sodium Chloride (Sodium Chloride Tab) 1 gm TID PO 12/20/16 14:00 01/19/17 13:59 12/20/16 20:53 1 GM Potassium Chloride (Klor-Con Tab) 80 meq BID PO 12/21/16 20:00 12/23/16 19:59 Cefoxitin Sodium 1000 mg/Dextrose 60 ml @ 100 mls/hr Q12H IV 12/21/16 12:00 12/31/16 11:59 12/21/16 12:53 100 MLS/HR Provider Instructions Activity Restrictions - No exercising or heavy lifting for 24 hours. - Do not drink alcohol the day of the procedure. - Do not drive a car or operate machinery until the day after the procedure. - Do not make any important decisions or sign important papers in 24 hours after the procedure. Following Day: - Return to full activity which may include returning to work/school. Diet Start your diet with liquids and light foods (jello, soup, juice, toast). Then eat your usual diet if not nauseated. Treatment For Common After Affects For mild abdominal pain, bloating, or excessive gas: - Rest - Eat lightly - Lie on right side Follow-Up Information Follow-up with as scheduled Anesthesia Information What You Should Know You have had a procedure that required some medicine to reduce anxiety and discomfort. This treatment is called moderate sedation. After receiving the treatment, you may be sleepy, but you will be able to breathe on your own. The effects of the treatment may last for several hours. Follow these instructions along with Activity/Diet recommendations noted above: * Do NOT do anything where dizziness or clumsiness would be dangerous. * Rest quietly at home today, then you can be up and about tomorrow. * Have a responsible person stay with you the rest of today. * You may have had an I.V. today. If so, you may take the dressing off later today. Recommendations Call your doctor if: * Trouble breathing * Continuous vomiting for more than 24 hours * Temperature above 101 degrees * Severe abdominal pain or bloating * Pain not relieved by pain medicine ordered * There is increased drainage or redness from any incision * A large amount of rectal bleeding greater than 2-3 tablespoons. (If you had a polyp/s removed or have hemorrhoids, a small amount of blood - from the rectum is to be expected.) * You have any unanswered questions or concerns. IN THE EVENT OF A SERIOUS EMERGENCY, GO TO THE NEAREST EMERGENCY ROOM Your discharge instructions were prepared by provider Getachew Macias. Patient Instructions Signature Page Anusha Rivera Patient (or Guardian) Signature/Date: I have read and understand the instructions given to me by my caregivers. Caregiver/RN/Doctor Signature/Date: The above-named patient and/or guardian has received patient instructions on this date. + Original Patient Signature Page (only) stays with chart. Please make copy for patient.
--- NOTE | 2016-12-21 16:26 | GI REPORT ---
Procedure Date: 12/21/2016 3:47 PM Procedure: Colonoscopy Indications: Heme positive stool Medicines: Propofol total dose 190 mg IV, Lidocaine 40 mg IV Complications: No immediate complications. Estimated Blood Loss: Estimated blood loss: none. Procedure: Pre-Anesthesia Assessment: - Prior to the procedure, a History and Physical was performed, and patient medications, allergies and sensitivities were reviewed. The patient's tolerance of previous anesthesia was reviewed. - The risks and benefits of the procedure and the sedation options and risks were discussed with the patient. All questions were answered and informed consent was obtained. After I obtained informed consent, the scope was passed under direct vision. Throughout the procedure, the patient's blood pressure, pulse, and oxygen saturations were monitored continuously. The scope was introduced through the anus and advanced to the cecum, identified by appendiceal orifice and ileocecal valve. The colonoscopy was technically difficult and complex due to poor bowel prep. The patient tolerated the procedure well. The quality of the bowel preparation was poor. Findings: There is no formed stool in the rectal vault. There are no mass lesions seen. Impression: - Preparation of the colon was poor. - No specimens collected. Recommendation: - [facility] for [facility] care. Getachew Macias M.D. Getachew Macias MD 12/21/2016 4:26:22 PM This report has been signed electronically. Note Initiated On: 12/21/2016 3:47 PM I attest to the content of the Intraoperative Record and orders documented therein, exceptions below
--- NOTE | 2016-12-21 16:56 | Anesthesiology Progress Note ---
Anesthesia Post Op Note Date & Time Dec 21, 2016 at 16:56 Vital Signs Pain Intensity: 0.0 Vital Signs Past 12 Hours Date Time Temp Pulse Resp B/P (MAP) Pulse Ox O2 Delivery O2 Flow Rate FiO2 12/21/16 16:45 93 20 129/60 (83) 94 Room Air 12/21/16 16:30 91 20 124/63 (83) 94 Room Air 12/21/16 15:21 36.8 66 24 132/66 (88) 94 Room Air 12/21/16 13:52 36.8 107 18 129/62 98 Room Air 12/21/16 08:00 98 Room Air 12/21/16 07:48 36.8 107 18 129/62 (84) 98 Room Air Notes Mental Status: alert / awake / arousable, participated in evaluation Pt Amnestic to Procedure: Yes Nausea / Vomiting: adequately controlled Pain: adequately controlled Airway Patency, RR, SpO2: stable & adequate BP & HR: stable & adequate Hydration State: stable & adequate Anesthetic Complications: no major complications apparent
[2016-12-21 18:10] LABS: BUN/CREATININE RATIO 20.1 (10-20); CALCIUM 7.3 mg/dl (8.5-10.1); CREATININE 1.4 mg/dl (0.60-1.20); POTASSIUM 3.3 mmol/L (3.5-5.1)
[2016-12-21] MEDS ORDERED: POTASSIUM CHLR 10 MEQ / WTR 10 MEQ in PREMIXED WATER 100 ML IV SCH (19:00)
[2016-12-21] MEDS: HEPARIN 25,000 UNIT/500ML D5W 500 ML IV PRN ×2 (19:10→22:54)
[2016-12-21] MEDS: POTASSIUM CHLORIDE 20 MEQ TABCR PO SCH (20:10)
[2016-12-21] MEDS: PRAVASTATIN SOD 20 MG TAB PO SCH (20:11)
[2016-12-21] MEDS ORDERED: VANCOMYCIN INJ 1,000 MG in SODIUM CHLORIDE 0.9% 250ML 250 ML IV SCH (21:00)
[2016-12-22] VITALS (7 sets, daily range): BP systolic 125–170; BP diastolic 71–107; PULSE 98–110; TEMP 36.3–36.6; O2SAT 90–97
[2016-12-22] MEDS: LEVOTHYROXINE 75 MCG TAB PO SCH (06:30)
[2016-12-22] MEDS: DOCUSATE SODIUM 100 MG CAP PO SCH ×2 (07:10→21:11)
[2016-12-22] MEDS: BOOST BREEZE NUTRITION DRINK 1 BOX PO SCH ×2 (07:10→13:04)
[2016-12-22] MEDS: NYSTATIN SUSP 500,000 U/5 ML UDC PO SCH ×4 (07:11→21:11)
[2016-12-22] MEDS: MUPIROCIN 2% OINT 22 GM TUBE EXT SCH (07:11)
[2016-12-22] MEDS: POTASSIUM CHLORIDE 20 MEQ TABCR PO SCH (07:11)
[2016-12-22] MEDS: CHOLECALCIFEROL 1000 INTER.UNIT TAB PO SCH (07:11)
[2016-12-22] MEDS: DILTIAZEM HCL 120 MG EXT REL CAP PO SCH (07:11)
[2016-12-22] MEDS: PANTOprazole SOD 40 MG TAB PO SCH ×2 (07:11→21:11)
[2016-12-22] MEDS: SODIUM CHLORIDE 1 GM TAB PO SCH ×3 (07:11→21:12)
[2016-12-22] MEDS: CYANOCOBALAMIN 500 MCG TAB (VIT B-12) PO SCH (07:11)
[2016-12-22 07:30] LABS: REFERENCE QUEST TEST REPORT
[2016-12-22 08:18] LABS: PARTIAL THROMBOPLASTIN RATIO 1.9
[2016-12-22 08:34] LABS: BUN/CREATININE RATIO 18.3 (10-20); CREATININE 1.3 mg/dl (0.60-1.20); MAGNESIUM 2.3 mg/dl (1.8-2.4); PHOSPHORUS 1.8 mg/dl (2.5-4.9); POTASSIUM 4.1 mmol/L (3.5-5.1)
--- NOTE | 2016-12-22 09:03 | Surgery Progress Note ---
Surgery Progress Note Date of Service Dec 22, 2016. Subjective pt just feeling poorly overall. no specific complaints. does state her abdominal pain has resolved since being prepped for her colonoscopy. Objective Vital Signs: Date Time Temp Pulse Resp B/P (MAP) Pulse Ox O2 Delivery O2 Flow Rate FiO2 12/22/16 08:00 97 Nasal Cannula 2.0 12/22/16 07:22 36.4 100 20 145/92 (109) 97 Nasal Cannula 1.5 12/22/16 00:00 Room Air 12/21/16 23:33 36.7 90 16 128/72 (90) 93 Room Air 12/21/16 17:36 36.5 98 20 149/80 (103) 92 Room Air 12/21/16 17:30 92 Room Air 12/21/16 17:05 94 20 137/54 (81) 95 Room Air 12/21/16 16:45 93 20 129/60 (83) 94 Room Air 12/21/16 16:30 91 20 124/63 (83) 94 Room Air 12/21/16 15:21 36.8 66 24 132/66 (88) 94 Room Air 12/21/16 13:52 36.8 107 18 129/62 98 Room Air General Appearance: no apparent distress, + pertinent finding (appears ill/ fatigued. oriented/answers appropriately) Head: normocephalic, atraumatic Neck: no JVD Respiratory/Chest: no respiratory distress, no accessory muscle use Abdomen: non distended, soft, + pertinent finding (very mild RUQ tenderness) Laboratory Results: Results Past 24 Hours Test 12/21/16 11:24 12/21/16 17:43 12/21/16 17:44 12/21/16 21:20 Range/Units Bedside Glucose 132 111 186 70-90 mg/dl Sodium Level 135 136-145 mmol/L Potassium Level 3.3 3.5-5.1 mmol/L Chloride Level 97 98-107 mmol/L Carbon Dioxide Level 25 21-32 mmol/L Anion Gap 13.0 3-11 mmol/L Blood Urea Nitrogen 28 7-18 mg/dl Creatinine 1.40 0.60-1.20 mg/dl Est Creatinine Clear Calc Drug Dose 23.9 ml/min Estimated GFR () 38.8 Estimated GFR (Non- 33.5 BUN/Creatinine Ratio 20.1 10-20 Random Glucose 94 70-99 mg/dl Calcium Level 7.3 8.5-10.1 mg/dl Ammonia < 10.0 11-32 umol/L Test 12/22/16 00:23 12/22/16 06:17 12/22/16 07:36 Range/Units Bedside Glucose 141 107 70-90 mg/dl Activated Partial Thromboplast Time 50.1 21.0-31.0 SECONDS Partial Thromboplastin Ratio 1.9 Sodium Level 136 136-145 mmol/L Potassium Level 4.1 3.5-5.1 mmol/L Chloride Level 101 98-107 mmol/L Carbon Dioxide Level 24 21-32 mmol/L Anion Gap 11.0 3-11 mmol/L Blood Urea Nitrogen 24 7-18 mg/dl Creatinine 1.30 0.60-1.20 mg/dl Est Creatinine Clear Calc Drug Dose 25.7 ml/min Estimated GFR () 42.4 Estimated GFR (Non- 36.6 BUN/Creatinine Ratio 18.3 10-20 Random Glucose 100 70-99 mg/dl Phosphorus Level 1.8 2.5-4.9 mg/dl Magnesium Level 2.3 1.8-2.4 mg/dl Albumin 1.6 3.4-5.0 gm/dl Assessment & Plan awaiting GI rec's regarding ERCP vs MRCP pt is not a surgical candidate...pending ERCP/MRCP results and lab trend, could require perc paige tube, however at this point she does not clinically have acute cholecystitis will continue to follow. no surgical plans at this point....
[2016-12-22 09:04] LABS: CALCIUM 7.5 mg/dl (8.5-10.1)
[2016-12-22] MEDS ORDERED: SODIUM PHOSPHATE 3 MMOL/1 ML INFUSION IV STA (09:36)
--- NOTE | 2016-12-22 09:47 | Nephrology Progress Note ---
Nephrology Progress Note Date of Service Dec 22, 2016. Chief Complaint ANA PAULA Subjective No acute events overnight. Anusha is very weak and tired this morning. She is resting comfortably in bed. She denies nausea. She continues to pass formed stool. She denies abdominal pain. No fevers or chills. She remains NPO including medications. She was able to take clear liquid overnight. She took 1 gram oral sodium yesterday. Colonoscopy completed yesterday. Poor prep and question diagnostic ability but no mass or lesion seen. Review of Systems A complete review of systems was performed. Pertinent positives are noted above. All other systems are negative. Vital Signs Last 8 Hrs Date Time Temp Pulse Resp B/P (MAP) Pulse Ox O2 Delivery O2 Flow Rate FiO2 12/22/16 08:00 97 Nasal Cannula 2.0 12/22/16 07:22 36.4 100 20 145/92 (109) 97 Nasal Cannula 1.5 Last Recorded Weight Weight (Kilograms): 54.500 Physical Exam General Appearance: + thin, + pertinent finding (weak, no acute distress) Head: normocephalic, atraumatic Eyes: normal inspection, sclerae normal ENT: normal ENT inspection, pharynx normal Neck: supple, no JVD Respiratory/Chest: lungs clear, no respiratory distress, no accessory muscle use Cardiovascular: no gallop, + tachycardia Abdomen/GI: non tender, soft, + distended Extremities/Musculoskelatal: + pertinent finding (generalized edema, no distal cyanosis) Neurologic/Psych: alert, + depressed affect Family History Heart disease Social History Drug Use: none Marital Status: Housing Status: lives with family 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 Laboratory Results Past 24 Hours 12/21/16 17:43 12/22/16 07:36 Test 12/21/16 11:24 12/21/16 17:43 12/21/16 17:44 12/21/16 21:20 Bedside Glucose 132 mg/dl (70-90) 111 mg/dl (70-90) 186 mg/dl (70-90) Anion Gap 13.0 mmol/L (3-11) Est Creatinine Clear Calc Drug Dose 23.9 ml/min Estimated GFR () 38.8 Estimated GFR (Non- 33.5 BUN/Creatinine Ratio 20.1 (10-20) Calcium Level 7.3 mg/dl (8.5-10.1) Ammonia < 10.0 umol/L (11-32) Test 12/22/16 00:23 12/22/16 06:17 12/22/16 07:36 12/22/16 09:27 Bedside Glucose 141 mg/dl (70-90) 107 mg/dl (70-90) Activated Partial Thromboplast Time 50.1 SECONDS (21.0-31.0) Partial Thromboplastin Ratio 1.9 Anion Gap 11.0 mmol/L (3-11) Est Creatinine Clear Calc Drug Dose 25.7 ml/min Estimated GFR () 42.4 Estimated GFR (Non- 36.6 BUN/Creatinine Ratio 18.3 (10-20) Calcium Level 7.5 mg/dl (8.5-10.1) Phosphorus Level 1.8 mg/dl (2.5-4.9) Magnesium Level 2.3 mg/dl (1.8-2.4) Albumin 1.6 gm/dl (3.4-5.0) Allergies Coded Allergies: Doxycycline (Verified Allergy, Intermediate, RASH, 12/21/16) Trimethoprim (Verified Allergy, Intermediate, RASH, 12/21/16) Adhesives (Verified Allergy, Unknown, HAD RXN TO HOLTER MONITOR PATCHES, ) Amoxicillin (Verified Allergy, Unknown, RASH, 12/21/16) Atorvastatin (Verified Allergy, Unknown, UNKNOWN, 12/21/16) Carbamazepine (Verified Allergy, Unknown, 12/21/16) Hydantoins (Verified Allergy, Unknown, 12/21/16) Levofloxacin (Verified Allergy, Unknown, UNKNOWN, 12/21/16) Penicillins (Verified Allergy, Unknown, AMOXIL,HAS TOLERATED CEPHS, ) has tolerated cefepime and ceftriaxone on previous admissions Phenytoin (Verified Allergy, Unknown, 12/21/16) Sulfamethoxazole w/Trimethoprim (Unverified Allergy, Unknown, VASCULITIS, 12/21/16) Medications Current Inpatient Medications Medications (Trade) Dose Ordered Sig/Phillip Route Start Time Stop Time Status Last Admin Dose Admin Acetaminophen (Tylenol Tab) 650 mg Q4H PRN PO 12/14/16 17:00 01/13/17 16:59 12/19/16 11:45 650 MG Cholecalciferol (Vitamin D Tab) 2,000 inter.unit DAILY PO 12/15/16 08:00 01/14/17 08:59 12/20/16 09:23 2,000 INTER.UNIT Cyanocobalamin (Vitamin B-12 Tab) 1,000 mcg DAILY PO 12/15/16 08:00 01/14/17 08:59 12/20/16 09:20 1,000 MCG Diltiazem HCl (TIAzac CAP) 240 mg DAILY PO 12/15/16 08:00 01/14/17 08:59 Future hold 12/19/16 08:34 240 MG Docusate Sodium (coLACE CAP) 100 mg BID PO 12/14/16 20:00 01/13/17 20:59 12/21/16 20:09 100 MG Nystatin (Mycostatin Susp) 5 ml QID PO 12/14/16 19:00 12/24/16 18:59 12/21/16 20:08 5 ML Pravastatin Sodium (Pravachol Tab) 20 mg HS PO 12/14/16 21:00 01/13/17 20:59 12/21/16 20:11 20 MG Mupirocin (Bactroban 2% Oint) 1 appln DAILY EXT 12/15/16 08:00 01/14/17 07:59 12/22/16 07:11 1 APPLN Heparin Sodium/ Dextrose 500 ml @ 13 mls/hr Q24H PRN IV 12/15/16 01:00 01/14/17 00:59 Future Hold 12/21/16 22:54 13 MLS/HR Polyethylene (Miralax Powder Packet) 17 gm BID PO 12/15/16 20:00 01/14/17 08:59 Future Hold 12/16/16 07:28 17 GM Morphine Sulfate (MoRPHine SULFATE INJ) 2 mg Q4H PRN IV 12/15/16 12:00 12/29/16 11:59 Miscellaneous (Soap Suds Enema) 1 ea DAILY PRN DC 12/16/16 14:00 01/15/17 13:59 12/20/16 14:23 1 EA Mineral Oil (Fleet Oil Enema) 133 ml DAILY PRN DC 12/16/16 14:15 01/15/17 14:14 12/19/16 20:18 133 ML Ondansetron HCl (Zofran Inj) 4 mg Q8H PRN IV 12/16/16 19:30 01/15/17 19:29 12/19/16 16:05 4 MG Sodium Chloride 1,000 ml @ 75 mls/hr [id number] IV 12/17/16 07:45 01/16/17 07:44 Future Hold 12/17/16 21:34 75 MLS/HR Pantoprazole Sodium (Protonix Tab) 40 mg BID PO 12/17/16 20:00 01/16/17 19:59 12/21/16 20:09 40 MG Levothyroxine Sodium (Synthroid Tab) 75 mcg DAILYBB PO 12/18/16 06:30 01/17/17 06:29 12/20/16 09:20 75 MCG Bisacodyl (Dulcolax Supp) 10 mg HS PRN DC 12/18/16 15:30 01/13/17 16:59 Enteral Nutritional Formula (Boost Breeze Nutritional Drink) 1 box TID PO 12/20/16 14:00 01/19/17 13:59 12/21/16 20:08 1 BOX Sodium Chloride (Sodium Chloride Tab) 1 gm TID PO 12/20/16 14:00 01/19/17 13:59 12/21/16 20:10 1 GM Potassium Chloride (Klor-Con Tab) 80 meq BID PO 12/21/16 20:00 12/23/16 19:59 12/21/16 20:10 80 MEQ Cefoxitin Sodium 1000 mg/Dextrose 60 ml @ 100 mls/hr Q12H IV 12/21/16 12:00 12/31/16 11:59 12/21/16 23:45 100 MLS/HR Miscellaneous (Stop Order) 1 ea ONE ONCE N/A 12/22/16 12:00 12/22/16 12:01 Impression (1) Hyponatremia (2) ANA PAULA (acute kidney injury) (3) Hypertension Nos (4) Anemia (5) Obstipation Anusha is a 86-year-old female admitted to the hospital with constipation and fecal impaction. Anusha unfortunately developed ANA PAULA consistent with ATN. Creatinine peaked at 2.4 mg/dL on December 18. Kidney function has recovered to baseline. Anusha developed hyponatremia. Oral intake is poor. She has increased GI losses. She does have evidence of TBW in the form of dependent edema associated with hypoalbuminemia. Urine osmolality remains inappropriately high consistent with tubular injury or high ADH state. Urine sodium and potassium both low consistent with prerenal/sodium avid state. Nutritional status continues to decline in setting of recent prep for colonoscopy and ongoing LFT abnormalities. She does not have clinical evidence of cholecystitis. Colonoscopy was poor prep but did not identify any pathology. She remains NPO today awaiting possible additional evaluation from GI. At this time, I would consider PPN or TPN. IV phosphorus replacement has been ordered. Appropriate phosphorus replacement is essential prior to starting regular caloric intake. Recommendations -- 40 mmol NaPO4 IV this morning -- Repeat metabolic profile with magnesium and phosphorus this afternoon -- Continue NaCl tablets (1 gram TID) -- Encourage protein/solute intake once able: consider PPN or TPN -- Medications are appropriate for renal function
[2016-12-22] MEDS ORDERED: SODIUM PHOSPHATE INJ 40 MMOL in SODIUM CHLORIDE 0.9% 1000ML 1,000 ML IV SCH (10:30)
[2016-12-22] MEDS: CEFOXITIN IV 1,000 MG in DEXTROSE 5% 50ML 50 ML IV SCH ×2 (11:16→23:13)
[2016-12-22] MEDS ORDERED: [UNRECOGNIZED DRUG - REMARK] ONE (12:00)
--- NOTE | 2016-12-22 12:00 | Hospitalist Progress Note ---
Hospitalist Progress Note Date of Service Dec 22, 2016. (Kamla Omalley PA-C) Subjective Pt evaluation today including: conversation w/ patient, physical exam, chart review, lab review, review of studies, review of inpatient medication list Pain: None PO Intake: NPO Voiding: no voiding problems The patient was seen and examined this morning. Pt reports feeling "terrible" today. She denies having any specific pain or being able to pinpoint anything that specifically is wrong. She does feel her mood is down because of being in the hospital. She is hoping to feel better soon. She specifically denies any abdominal pain, nausea, vomiting. She has not been up or out of bed yet today, and is unsure if she would actually be able to. I encouraged her to sit in the bedside chair. Additional Comments: ROS: 6 point ROS reviewed and otherwise negative. (Kamla Omalley PA-C) Objective Vital Signs Date Time Temp Pulse Resp B/P (MAP) Pulse Ox O2 Delivery O2 Flow Rate FiO2 12/22/16 08:00 97 Nasal Cannula 2.0 12/22/16 07:22 36.4 100 20 145/92 (109) 97 Nasal Cannula 1.5 12/22/16 00:00 Room Air 12/21/16 23:33 36.7 90 16 128/72 (90) 93 Room Air 12/21/16 17:36 36.5 98 20 149/80 (103) 92 Room Air 12/21/16 17:30 92 Room Air 12/21/16 17:05 94 20 137/54 (81) 95 Room Air 12/21/16 16:45 93 20 129/60 (83) 94 Room Air 12/21/16 16:30 91 20 124/63 (83) 94 Room Air 12/21/16 15:21 36.8 66 24 132/66 (88) 94 Room Air 12/21/16 13:52 36.8 107 18 129/62 98 Room Air (Kamla Omalley PA-C) Physical Exam Notes: General Appearance: WD/WN, no apparent distress, + thin, + pertinent finding ( Jaundiced) Eyes: PERRL, EOMI ENT: pharynx normal, + pertinent finding (hard of hearing) Neck: supple, no JVD Respiratory/Chest: no respiratory distress, no accessory muscle use, + pertinent finding (+ faint crackles bibasilarly, otherwise clear throughout ) Cardiovascular: + systolic murmur (II/IV), + irregularly irregular Abdomen: normal bowel sounds, non tender, soft, no organomegaly Extremities: non-tender, no calf tenderness, + pedal edema (2+ pitting BLE. SCDs off) Neurologic/Psychiatric: alert, oriented x 3 Skin: warm/dry, + jaundice (Kamla Omalley, SANGITA) Laboratory Results Last 24 Hours Test 12/21/16 17:43 12/21/16 17:44 12/21/16 21:20 12/22/16 00:23 Sodium Level 135 mmol/L Potassium Level 3.3 mmol/L Chloride Level 97 mmol/L Carbon Dioxide Level 25 mmol/L Anion Gap 13.0 mmol/L Blood Urea Nitrogen 28 mg/dl Creatinine 1.40 mg/dl Est Creatinine Clear Calc Drug Dose 23.9 ml/min Estimated GFR () 38.8 Estimated GFR (Non- 33.5 BUN/Creatinine Ratio 20.1 Random Glucose 94 mg/dl Calcium Level 7.3 mg/dl Ammonia < 10.0 umol/L Bedside Glucose 111 mg/dl 186 mg/dl 141 mg/dl Test 12/22/16 06:17 12/22/16 07:36 12/22/16 09:56 Bedside Glucose 107 mg/dl Activated Partial Thromboplast Time 50.1 SECONDS Partial Thromboplastin Ratio 1.9 Sodium Level 136 mmol/L Potassium Level 4.1 mmol/L Chloride Level 101 mmol/L Carbon Dioxide Level 24 mmol/L Anion Gap 11.0 mmol/L Blood Urea Nitrogen 24 mg/dl Creatinine 1.30 mg/dl Est Creatinine Clear Calc Drug Dose 25.7 ml/min Estimated GFR () 42.4 Estimated GFR (Non- 36.6 BUN/Creatinine Ratio 18.3 Random Glucose 100 mg/dl Calcium Level 7.5 mg/dl Phosphorus Level 1.8 mg/dl Magnesium Level 2.3 mg/dl Albumin 1.6 gm/dl 1.6 gm/dl Total Bilirubin 3.8 mg/dl Direct Bilirubin 3.2 mg/dl Aspartate Amino Transf (AST/SGOT) 67 U/L Alanine Aminotransferase (ALT/SGPT) 75 U/L Alkaline Phosphatase 277 U/L Total Protein 4.3 gm/dl (Kamla Omalley, SANGITA) Assessment and Plan 86 yo female with a 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 PT was manually disimpacted in ER successfully. Hemoccult negative, continues to be anemic. Pt developed acute hypoxemic respiratory failure after admission requiring NRB facemask, likely secondary to flash Pulm edema from fluid overload in setting of severe . LLE edema found on admission and Doppler confirms Acute DVT LLE. Also incidentally noted to have choledocholithiasis on CT scan abd/pel on admission as well as cholelithiasis and mild-mod left hydronephrosis, severe fecal impaction. Her LFTs trended upward with total and direct bilirubin so General Surgery was consulted for possible ERCP/ Cholecystectomy. Obstipation/Fecal impaction/Abd pain/Sterile colitis/ choledocholithiasis with dilated CBD - s/p manual disimpaction - Abd pain now resolved after trials of enemas/disimpaction/bowel regimen and s/ p colonoscopy on 12/[address] Macias for disimpaction. - Had hematemesis/coffee ground emesis on 12/17, heparin gtt held, then restarted after that resolved and Hgb stable. No hematemesis since 12/20. - With h/o recent GI bleed on previous admission and severe constipation--> question if has colon CA? - colonoscopy was not diagnostic, it was for disimpaction. - EGD completed on 12/17 showing LA Grade C reflux esophagitis, hiatal hernia and few gastric polyps. Elevated bilirubin - Total bili up to 7.0, +jaundice, yesterday, trended back down slightly today. - Gi on board- appreciate recs: Planned EUS/ERCP this afternoon with Dr. Fischer. - Patient is denying any abdominal c/o - Cont cefoxitime (day #2) d/t pts allergies and will cover for necrotizing cholecystitis - I called the patient's son, Travis Courtney and updated him at 11:50 AM regarding having the ERCP today. All his questions and concerns were addressed. He plans to come in later this evening. Hematemesis- likely from esophagitis with wretching - resolved - following H/H - GI on board - Pt completed Colonoscopy 12/21 - Nutrition consulted: input appreciated-Boost Breeze,prealbumin is low. ? TPN - will hopefully be able to tolerate oral nutrition after ERCP. Urinary retention secondary to constipation-pt cut her Hu with scissors with episode of delirium-> retention resolved with Hu Hu replaced 12/19 as was continuing to require straight cath qshift Acute LLE DVT, POA/Anemia - could be provoked by recent hospital stays but also with h/o PEs and nephrotic syndrome putting her at increased risk for recurrence. - Hematemesis --> heparin gtt was on hold x 1 day, then restarted, had recurrent hematemesis on 12/20, denies any today. - Follow H&H -continue heparin gtt and after procedures, consider transition to Coumadin for DVT in case of need for reversal if future bleed -Consult to Heme appreciated -consider IVC filter placement if continued GI bleeding-d/w pt and son ANA PAULA on CKD stage III, Membranous GN/Nephrotic Syndrome, h/o HD and AIN in 2008, Mild-mod left hydroureteronephrosis, Hyponatremia, Hypokalemia - ANA PAULA resolved. 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 Following. May consider NaCl- tabs if drops again or is not resolving. Severe ,Mod MR,Mild MS, HTN,CAD,PAF,h/o cerebellar CVA, acute hypoxemic resp failure secondary to acute on chronic diastolic CHF - Not on AC on admission likely due to h/o GI bleeding. - In past AVR has been discussed but thought to not be a great candidate given comorbidities - Cont O2 prn - continue diltiazem, statin - restart po lasix as per Nephro - Consult Cardiology- appreciate recs for preop Hypercholesterolemia - continue pravastatin 20 mg by mouth at bedtime. Hypothyroidism - TSH here 6.94 with low FT3 and normal FT4 c/w Euthyroid sick syndrome - continue levothyroxine sodium 75 g by mouth daily. GERD -continue pantoprazole and increased to 40 mg by mouth twice a day. DVT ppx: SCD to rt leg, heparin gtt, PPI Dispo- Full code Disposition: PT/OT evals, From home, planned EUS/ERCP today, likely will need rehab/placement after stay (Kamla Omalley, SANGITA) PA Physician Supervision Note: I interviewed and examined the patient. Discussed with Shaunna Omalley PAC and agree with findings and plan as documented in the note. Any exceptions or clarifications are listed here: None this pt is lethargic and jaundiced, ERCP did confirm choledocholithiasis, GI performed ERCP and sweep and sphincterotomy, antibiotics, surgery is following. vitals stable abd is soft, NABS, ruq tenderness improved, less lethargic choledocholithiasis, antibiotics, now clear biliary tree hopeful will improve clinical outcome and appetite Documented By: Pool Jarvis (Pool Jarvis M.D.)
[2016-12-22] MEDS ORDERED: FENTANYL CITRATE INJ 50 MCG/1 ML 2 ML VIAL ONE (15:21)
[2016-12-22] MEDS ORDERED: ONDANSETRON INJ 2 MG/ML 2 ML VIAL IV PRN ×2 (16:00→16:15)
[2016-12-22] MEDS ORDERED: PROMETHAZINE HCL INJ 6.25 MG in SODIUM CHLORIDE 0.9% 50ML 50 ML IV PRN ×2 (16:00→16:15)
[2016-12-22] MEDS ORDERED: FENTANYL CITRATE INJ 50 MCG/1 ML 2 ML VIAL IV PRN ×2 (16:00→16:15)
[2016-12-22] MEDS ORDERED: ATROPINE SULFATE 0.1 MG/ML 5ML SYR IV PRN ×2 (16:00→16:15)
[2016-12-22] MEDS ORDERED: EpHEDrine SULFATE INJ 50 MG/ML AMP IV PRN ×2 (16:00→16:15)
--- NOTE | 2016-12-22 16:02 | History & Physical Bridge Note ---
H&P Re-Evaluation Bridge Note: I have examined the patient, reviewed the History & Physical and in the interval since the performance of the History & Physical I have noted the following changes of clinical significance: No changes noted Increasing LFTs with bile duct dilation and filling defects. for ERCP today
--- NOTE | 2016-12-22 17:48 | Anesthesiology Progress Note ---
Anesthesia Post Op Note Date & Time Dec 22, 2016 at 17:48 Vital Signs Pain Intensity: 0 Vital Signs Past 12 Hours Date Time Temp Pulse Resp B/P (MAP) Pulse Ox O2 Delivery O2 Flow Rate FiO2 12/22/16 17:40 103 18 145/81 98 Mask 15 12/22/16 17:33 36.2 99 16 143/78 95 Mask 15 12/22/16 15:26 37 102 16 149/87 (107) 95 Nasal Cannula 4 12/22/16 15:00 36.3 102 24 170/107 (128) 96 Nasal Cannula 2.0 12/22/16 08:00 97 Nasal Cannula 2.0 12/22/16 07:22 36.4 100 20 145/92 (109) 97 Nasal Cannula 1.5 Notes Mental Status: alert / awake / arousable, participated in evaluation Pt Amnestic to Procedure: Yes Nausea / Vomiting: adequately controlled Pain: adequately controlled Airway Patency, RR, SpO2: stable & adequate BP & HR: stable & adequate Hydration State: stable & adequate Anesthetic Complications: no major complications apparent
[2016-12-22] MEDS ORDERED: LIDOCAINE HCL 2% 2 ML VIAL (20MG/ML) ONE (17:51)
[2016-12-22] MEDS ORDERED: PROPOFOL IV EMULSION 10 MG/ML 20 ML VIAL IV ONE (17:51)
[2016-12-22] MEDS ORDERED: ONDANSETRON INJ 2 MG/ML 2 ML VIAL ONE (17:52)
[2016-12-22] MEDS ORDERED: LARYING-O-JET KIT (LTA) ONE ×2 (17:52)
[2016-12-22] MEDS ORDERED: PHENYLEPHRINE HCL INJ 10 MG/ML VIAL ONE (17:52)
[2016-12-22] MEDS ORDERED: SUCCINYLCHOLINE CHLORIDE 20 MG/ML 10 ML VIAL IV ONE (17:52)
--- NOTE | 2016-12-22 18:02 | GI REPORT ---
Procedure Date: 12/22/2016 4:25 PM Procedure: ERCP Indications: Abnormal abdominal CT, Biliary dilation on Computed Tomogram Scan, Jaundice, Abnormal liver function test Medicines: General Anesthesia Complications: No immediate complications. Estimated blood loss: Minimal. Estimated Blood Loss: Estimated blood loss was minimal. Procedure: Pre-Anesthesia Assessment: - Prior to the procedure, a History and Physical was performed, and patient medications and allergies were reviewed. The patient's tolerance of previous anesthesia was also reviewed. The risks and benefits of the procedure and the sedation options and risks were discussed with the patient. All questions were answered, and informed consent was obtained. Prior Anticoagulants: The patient has taken no previous anticoagulant or antiplatelet agents. ASA Grade Assessment: III - A patient with severe systemic disease. After reviewing the risks and benefits, the patient was deemed in satisfactory condition to undergo the procedure. After obtaining informed consent, the scope was passed under direct vision. Throughout the procedure, the patient's blood pressure, pulse, and oxygen saturations were monitored continuously. The Scope was introduced through the mouth, and advanced to the duodenum and used to inject contrast into the bile duct. The ERCP was accomplished without difficulty. The patient tolerated the procedure well. Findings: The pressure vessel inspector film was normal. The scope was advanced to a normal major papilla in the descending duodenum. Examination of the pharynx, larynx and associated structures, and upper GI tract was normal. The major papilla was on the rim of a diverticulum. The major papilla was normal. A straight 0.035 inch Tracer [employer] Direct wire was passed into the biliary tree. The short-nosed traction sphincterotome was passed over the guidewire and the bile duct was then cannulated. Contrast was injected. I personally interpreted the bile duct images. Ductal flow of contrast was adequate. Image quality was adequate. Contrast extended to the entire biliary tree. The lower third of the main bile duct contained two stones, the largest of which was 10 mm in diameter. The middle third of the main bile duct and upper third of the main bile duct were moderately dilated and diffusely dilated, acquired. The largest diameter was 12 mm. A 4 mm biliary sphincterotomy was made with a short-tip traction sphincterotome using ERBE electrocautery. There was self limited oozing from the sphincterotomy which did not require treatment. The biliary tree was swept with an 8.5 mm balloon, 12 mm balloon and 15 mm balloon starting at the bifurcation. All stones were removed. Impression: - The major papilla was on the rim of a diverticulum. - The major papilla appeared normal. - The upper third of the main bile duct and middle third of the main bile duct were moderately dilated, acquired. - A sphincterotomy was performed. - The biliary tree was swept. - Choledocholithiasis was found. Complete removal was accomplished by biliary sphincterotomy and balloon extraction. - Final occlusion cholangiogram demonstrated no fixed or mobile persisting filling defects. Contrast promptly emptied. There was no resistance to any balloon size. The PD was not opacified. No samples taken. Recommendation: - Resume heparin at prior dose in 1 day. MD Ramírez Botello MD 12/22/2016 6:02:18 PM This report has been signed electronically. Note Initiated On: 12/22/2016 4:25 PM I attest to the content of the Intraoperative Record and orders documented therein, exceptions below
--- NOTE | 2016-12-22 19:09 | DIAGNOSTIC IMAGING REPORT ---
ERCP BILIARY DUCTAL CLINICAL HISTORY: Choledocholithiasis COMPARISON STUDY: CT scan dated 12/14/2016 FLUOROSCOPY TIME: 374 seconds. 21 fluoroscopic spot images were acquired.. FINDINGS: The ERCP was performed by Dr. grayson. The common bile duct was cannulated and retrograde fashion. There is intra and extrahepatic biliary ductal dilatation. There are multiple ductal filling defects consistent with common bile duct calculi. It appears that a sphincterotomy was performed. A balloon catheter was repeatedly swept through the duct. On the final film, there was good drainage. IMPRESSION: Images documenting ERCP. Common bile duct calculi. An apparent sphincterotomy was performed and balloon catheter was swept through the duct. Electronically signed by: Logan Fuller M.D. 12/22/2016 7:07 PM Dictated Date/Time: 12/22/2016 7:04 PM
[2016-12-22 19:45] LABS: CALCIUM 7.5 mg/dl (8.5-10.1); CREATININE 1.3 mg/dl (0.60-1.20); MAGNESIUM 2.3 mg/dl (1.8-2.4); POTASSIUM 3.9 mmol/L (3.5-5.1)
[2016-12-22 19:46] LABS: PHOSPHORUS 3.1 mg/dl (2.5-4.9)
[2016-12-22] MEDS: BOOST PLUS VANILLA PO SCH ×2 (20:00)
[2016-12-22] MEDS: PRAVASTATIN SOD 20 MG TAB PO SCH (21:13)
[2016-12-23] VITALS (8 sets, daily range): BP systolic 125–150; BP diastolic 68–87; PULSE 91–102; TEMP 36.2–36.7; O2SAT 89–99
[2016-12-23] MEDS ORDERED: NURSING VERBAL MED ORDER ONE (00:30)
[2016-12-23] MEDS: HEPARIN 25,000 UNIT/500ML D5W 500 ML IV PRN ×2 (01:00→02:45)
[2016-12-23 01:59] LABS: PARTIAL THROMBOPLASTIN RATIO 1.5
[2016-12-23] MEDS ORDERED: HEPARIN IV BOLUS 4,000 UNIT in SYRINGE 0 ML IV STA (02:33)
[2016-12-23] MEDS: LEVOTHYROXINE 75 MCG TAB PO SCH (06:24)
--- NOTE | 2016-12-23 07:25 | Hospitalist Progress Note ---
Hospitalist Progress Note Date of Service Dec 23, 2016. (Kamla Omalley PA-C) Subjective Pt evaluation today including: conversation w/ patient, conversation w/ family , physical exam, chart review, lab review, review of studies, conversation w/ media sales consultant Pain: None PO Intake: Good Voiding: sweet catheter in place The patient was seen and examined this morning. Pt reports she slept overnight but does not feel more rested. She is falling asleep easily in bed, and was encouraged to get up and walk with PT/OT today. She is agreeable to sitting up in bedside chair today as well. She denies any lightheadedness or dizziness, abdominal pain, n/v/d/c. She did not have any bowel movement since colonoscopy 2 days ago, but is passing gas. Pt is asking for regular food today. Constitutional: No fever, No chills, No sweats Eyes: No redness, No diplopia ENT: No nasal symptoms, No sore throat, No trouble swallowing Respiratory: No cough, No shortness of breath, No dyspnea at rest Cardiovascular: No chest pain, No palpitations Abdomen: No pain, No nausea, No vomiting, No diarrhea Musculoskeletal: No joint pain Endo: + fatigue Skin: No rash, No itch (Kamla Omalley, SANGITA) Objective Vital Signs Date Time Temp Pulse Resp B/P (MAP) Pulse Ox O2 Delivery O2 Flow Rate FiO2 12/23/16 00:00 36.6 98 20 125/71 (89) 97 Room Air 4.0 12/23/16 00:00 95 Nasal Cannula 4.0 12/22/16 23:57 36.6 98 20 125/71 (89) 97 Room Air 12/22/16 19:14 36.4 110 22 143/76 (98) 94 Mask 4.0 12/22/16 18:43 36.4 102 20 149/85 (106) 90 Nasal Cannula 4.0 12/22/16 18:30 91 Nasal Cannula 4.0 12/22/16 18:20 94 16 144/80 97 Mask 5 12/22/16 18:10 36.2 94 16 151/79 97 Mask 5 12/22/16 18:00 105 14 140/79 92 Nasal Cannula 4 12/22/16 17:50 101 17 152/84 98 Mask 5 12/22/16 17:40 103 18 145/81 98 Mask 15 12/22/16 17:33 36.2 99 16 143/78 95 Mask 15 12/22/16 15:26 37 102 16 149/87 (107) 95 Nasal Cannula 4 12/22/16 15:00 36.3 102 24 170/107 (128) 96 Nasal Cannula 2.0 12/22/16 08:00 97 Nasal Cannula 2.0 12/22/16 07:22 36.4 100 20 145/92 (109) 97 Nasal Cannula 1.5 (Kamla Omalley PA-C) Physical Exam Notes: General Appearance: WD/WN, no apparent distress, + thin, + pertinent finding ( Jaundice, but slightly improved) Eyes: PERRL, EOMI, +icterus ENT: pharynx normal, able to drink boost and swallow pills without difficulty Neck: supple, no JVD Respiratory/Chest: no respiratory distress, no accessory muscle use, + pertinent finding (+ faint crackles bibasilarly, improved today, otherwise clear throughout ) Cardiovascular: NSR, + systolic murmur (II/IV) Abdomen: normal bowel sounds, non tender, soft, no organomegaly Extremities: non-tender, no calf tenderness, + pedal edema (2+ pitting BLE.) + slight swelling in bilateral hands Neurologic/Psychiatric: alert, oriented x 3 Skin: warm/dry, + jaundice but slightly improved (Kamla Omalley, PA-C) Laboratory Results Last 24 Hours Test 12/22/16 07:36 12/22/16 09:56 12/22/16 12:05 12/22/16 18:35 Activated Partial Thromboplast Time 50.1 SECONDS Partial Thromboplastin Ratio 1.9 Sodium Level 136 mmol/L Potassium Level 4.1 mmol/L Chloride Level 101 mmol/L Carbon Dioxide Level 24 mmol/L Anion Gap 11.0 mmol/L Blood Urea Nitrogen 24 mg/dl Creatinine 1.30 mg/dl Est Creatinine Clear Calc Drug Dose 25.7 ml/min Estimated GFR () 42.4 Estimated GFR (Non- 36.6 BUN/Creatinine Ratio 18.3 Random Glucose 100 mg/dl Calcium Level 7.5 mg/dl Phosphorus Level 1.8 mg/dl Magnesium Level 2.3 mg/dl Albumin 1.6 gm/dl 1.6 gm/dl Total Bilirubin 3.8 mg/dl Direct Bilirubin 3.2 mg/dl Aspartate Amino Transf (AST/SGOT) 67 U/L Alanine Aminotransferase (ALT/SGPT) 75 U/L Alkaline Phosphatase 277 U/L Total Protein 4.3 gm/dl Bedside Glucose 98 mg/dl 91 mg/dl Test 12/22/16 18:55 12/23/16 01:34 12/23/16 04:44 Sodium Level 137 mmol/L Potassium Level 3.9 mmol/L Chloride Level 103 mmol/L Carbon Dioxide Level 25 mmol/L Anion Gap 9.0 mmol/L Blood Urea Nitrogen 21 mg/dl Creatinine 1.30 mg/dl Est Creatinine Clear Calc Drug Dose 25.7 ml/min Estimated GFR () 42.4 Estimated GFR (Non- 36.6 BUN/Creatinine Ratio 16.0 Random Glucose 96 mg/dl Calcium Level 7.5 mg/dl Phosphorus Level 3.1 mg/dl Magnesium Level 2.3 mg/dl Albumin 1.6 gm/dl Activated Partial Thromboplast Time 37.9 SECONDS Partial Thromboplastin Ratio 1.5 (Kamla Omalley, SANGITA) Assessment and Plan 86 yo female with a 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 PT was manually disimpacted in ER successfully. Hemoccult negative, continues to be anemic. A colonoscopy was performed on 12/22 for disimpaction. It was not a diagnostic scope. Pt developed acute hypoxemic respiratory failure after admission requiring NRB facemask, likely secondary to flash Pulm edema from fluid overload in setting of severe . LLE edema found on admission and Doppler confirms Acute DVT LLE. Also incidentally noted to have choledocholithiasis on CT scan abd/pel on admission as well as cholelithiasis and mild-mod left hydronephrosis, severe fecal impaction. Her LFTs trended upward with total and direct bilirubin so General Surgery was consulted, she underwent ERCP with gallstone removal on 12/22/16 which was successful. Obstipation/Fecal impaction/Abd pain/Sterile colitis/ choledocholithiasis with dilated CBD - s/p manual disimpaction - Abd pain now resolved after trials of enemas/disimpaction/bowel regimen and s/ p colonoscopy on 12/[address] Macias for disimpaction. - Had hematemesis/coffee ground emesis on 12/17, heparin gtt held, then restarted after that resolved and Hgb stable. No hematemesis since 12/20. - With h/o recent GI bleed on previous admission and severe constipation--> question if has colon CA? - colonoscopy was not diagnostic, it was for disimpaction. PT's son, Travis, and I discussed if he would want aggressive measures taken if the pt was diagnosed with something like a colon cancer, and he said no, that he would not be agreeable to surger, chemo, radiation, or other extensive workup. This was discussed with Dr. Henderson as well, and he agrees no follow up in the office necessary if the pt and family wouldn't pursue aggressive measures. - EGD completed on 12/17 showing LA Grade C reflux esophagitis, hiatal hernia and few gastric polyps. - ERCP completed on 12/22 with gallstone removal- jaundice improving - Allow mirilax BID today, then increase to TID if she tolerates a regular diet today, continue colace 100 mg BID. Elevated bilirubin - Total bili peaked at 7.0, +jaundice, trending downward today - Gi on board- appreciate recs: Completed EUS/ERCP 12/[address] Fischer. - Patient is denying any abdominal c/o - Cont cefoxitime (day #3) d/t pts allergies and will cover for necrotizing cholecystitis - will keep on for at least a 10 day course Hematemesis- likely from esophagitis with wretching - resolved - following H/H, slowly trended to 7.8 today. No acute drops. Will need repeat CBC as an outpatient. - GI on board - Pt completed Colonoscopy 12/21 - Nutrition consulted: input appreciated-Boost Breeze, prealbumin is low - continue Boost TID and encourage oral diet, pt is tolerating without difficulty so far. Urinary retention secondary to constipation-pt cut her Sweet with scissors with episode of delirium-> retention resolved with Sweet Sweet replaced 12/19 as was continuing to require straight cath qshift Acute LLE DVT, POA/Anemia - could be provoked by recent hospital stays but also with h/o PEs and nephrotic syndrome putting her at increased risk for recurrence. - Hematemesis --> heparin gtt was on hold x 1 day, then restarted, had recurrent hematemesis on 12/20, denies any today. - Follow H&H -Consult to Heme appreciated -continue heparin gtt and after procedures, will plan to transition to Coumadin for DVT in case of need for reversal if future bleed today, will need to have therapeutic INR prior to dc. This will likely trend up quickly with her poor nutritional status.. -consider IVC filter placement if continued GI bleeding-d/w pt and son ANA PAULA on CKD stage III, Membranous GN/Nephrotic Syndrome, h/o HD and AIN in 2008, Mild-mod left hydroureteronephrosis, Hyponatremia, Hypokalemia - ANA PAULA resolved. - [place] may be from severe constipation and urinary retention - S[employer] Stitcher at baseline, 1.3 - Nephro on board- appreciate, phosphorus replaced and improved today. - avoid nephrotoxins and renally dose all meds - fluid restrict to < 1500 ml/day Hypokalemia- -replace K+ with 40meq - may need daily supplementation if she is not able to - Na+ improving, hopeful that this remains ok since she is tolerating a regular diet so far. May consider NaCl- tabs if drops again or is not resolving. Severe ,Mod MR,Mild MS, HTN,CAD,PAF,h/o cerebellar CVA, acute hypoxemic resp failure secondary to acute on chronic diastolic CHF - Not on AC on admission likely due to h/o GI bleeding. - In past AVR has been discussed but thought to not be a great candidate given comorbidities - Cont O2 prn - continue diltiazem, statin - restart po lasix as per Nephro - Consult Cardiology- appreciate recs for preop Hypercholesterolemia - continue pravastatin 20 mg by mouth at bedtime. Hypothyroidism - TSH here 6.94 with low FT3 and normal FT4 c/w Euthyroid sick syndrome - continue levothyroxine sodium 75 g by mouth daily. GERD -continue pantoprazole and increased to 40 mg by mouth twice a day. DVT ppx: SCD to rt leg, heparin gtt, PPI Dispo- Full code Disposition: PT/OT evals, From home and lives alone, accepted to [facility], likely discharge within 1 day. Discussion was held with the son and he was updated on all of the above. He is speaking with his siblings regarding having the patient live with someone after her discharge from [facility]. (Kamla Omalley, SANGITA) PA Physician Supervision Note: I interviewed and examined the patient. Discussed with Shaunna Omalley PAC and agree with findings and plan as documented in the note. Any exceptions or clarifications are listed here: None this pt is lethargic and jaundiced, ERCP did confirm choledocholithiasis, GI performed ERCP and sweep and sphincterotomy, antibiotics, surgery is following. vitals stable abd is soft, NABS, ruq tenderness improved, less lethargic choledocholithiasis, antibiotics, now clear biliary tree hopeful will improve clinical outcome and appetite baseline acute DVT now procedures are past will re anticoagulate CKD3, previous MPGN, AIN, now peripheral edema based on nutritional deficiency and prolongued hospital stay, will not use tpn or ppn due to volume and now encourage po nutrition Severe , watch volume shifts Initial anemia, cautious anticoagulation, no defined source seen on EGD or colo but colo was poor prep Documented By: Pool Jarvis (Pool Jarvis M.D.)
--- NOTE | 2016-12-23 08:24 | Anesthesiology Progress Note ---
Anesthesia Post Op Note Date & Time Dec 23, 2016 at 08:24 Vital Signs Pain Intensity: 0 Vital Signs Past 12 Hours Date Time Temp Pulse Resp B/P (MAP) Pulse Ox O2 Delivery O2 Flow Rate FiO2 12/23/16 07:10 36.4 91 20 133/77 (95) 90 Nasal Cannula 4.0 12/23/16 00:00 36.6 98 20 125/71 (89) 97 Room Air 4.0 12/23/16 00:00 95 Nasal Cannula 4.0 12/22/16 23:57 36.6 98 20 125/71 (89) 97 Room Air Notes Mental Status: alert / awake / arousable, participated in evaluation Pt Amnestic to Procedure: Yes Nausea / Vomiting: adequately controlled Pain: adequately controlled Airway Patency, RR, SpO2: stable & adequate BP & HR: stable & adequate Hydration State: stable & adequate Anesthetic Complications: no major complications apparent
[2016-12-23] MEDS: POTASSIUM CHLORIDE 20 MEQ TABCR PO SCH ×2 (09:00→09:19)
[2016-12-23 09:09] LABS: HEMATOCRIT 25.1 % (37-47); MEAN CELL VOLUME 91.3 fL (80-100); MEAN CORPUSCULAR HEMOGLOBIN 28.4 pg (25-34); MEAN CORPUSCULAR HGB CONC 31.1 g/dl (32-36); MEAN PLATELET VOLUME 9.4 fL (7.4-10.4); PLATELET COUNT 102 K/uL (130-400); RED BLOOD COUNT 2.75 M/uL (4.2-5.4); WHITE BLOOD COUNT 10.35 K/uL (4.8-10.8)
[2016-12-23] MEDS: DILTIAZEM HCL 120 MG EXT REL CAP PO SCH (09:17)
[2016-12-23] MEDS: SODIUM CHLORIDE 1 GM TAB PO SCH (09:17)
[2016-12-23] MEDS: NYSTATIN SUSP 500,000 U/5 ML UDC PO SCH ×4 (09:17→20:07)
[2016-12-23] MEDS: PANTOprazole SOD 40 MG TAB PO SCH ×2 (09:17→20:07)
[2016-12-23] MEDS: BOOST PLUS VANILLA PO SCH ×6 (09:17→20:07)
[2016-12-23] MEDS: CHOLECALCIFEROL 1000 INTER.UNIT TAB PO SCH (09:18)
[2016-12-23] MEDS: DOCUSATE SODIUM 100 MG CAP PO SCH ×2 (09:18→20:07)
[2016-12-23] MEDS: CYANOCOBALAMIN 500 MCG TAB (VIT B-12) PO SCH (09:18)
[2016-12-23] MEDS: MUPIROCIN 2% OINT 22 GM TUBE EXT SCH (09:19)
[2016-12-23 09:28] LABS: PARTIAL THROMBOPLASTIN RATIO 3.9
[2016-12-23 09:37] LABS: CALCIUM 7.4 mg/dl (8.5-10.1)
--- NOTE | 2016-12-23 09:38 | Gastroenterology Progress Note ---
Progress Note Date of Service: Dec 23, 2016 Subjective Pt evaluation today including: conversation w/ patient, physical exam, chart review, lab review, review of studies, review of inpatient medication list CC f/u CBD stones, obstipation, esophagitis HPI Pt denies abd pain. Is tolerating liquid diet with Boost. NO BM today per her report. Last one recorded was yesterday brown in color. Review of Systems Respiratory: + shortness of breath Cardiac: No chest pain Medications Current Inpatient Medications Medications (Trade) Dose Ordered Sig/Phillip Route Start Time Stop Time Status Last Admin Dose Admin Acetaminophen (Tylenol Tab) 650 mg Q4H PRN PO 12/14/16 17:00 01/13/17 16:59 12/19/16 11:45 650 MG Cholecalciferol (Vitamin D Tab) 2,000 inter.unit DAILY PO 12/15/16 08:00 01/14/17 08:59 12/23/16 09:18 2,000 INTER.UNIT Cyanocobalamin (Vitamin B-12 Tab) 1,000 mcg DAILY PO 12/15/16 08:00 01/14/17 08:59 12/23/16 09:18 1,000 MCG Diltiazem HCl (TIAzac CAP) 240 mg DAILY PO 12/15/16 08:00 01/14/17 08:59 Future hold 12/23/16 09:17 240 MG Docusate Sodium (coLACE CAP) 100 mg BID PO 12/14/16 20:00 01/13/17 20:59 12/23/16 09:18 100 MG Nystatin (Mycostatin Susp) 5 ml QID PO 12/14/16 19:00 12/24/16 18:59 12/23/16 09:17 5 ML Pravastatin Sodium (Pravachol Tab) 20 mg HS PO 12/14/16 21:00 01/13/17 20:59 12/22/16 21:13 20 MG Mupirocin (Bactroban 2% Oint) 1 appln DAILY EXT 12/15/16 08:00 01/14/17 07:59 12/23/16 09:19 1 APPLN Heparin Sodium/ Dextrose 500 ml @ 17 mls/hr Q24H PRN IV 12/15/16 01:00 01/14/17 00:59 Future hold 12/23/16 02:45 17 MLS/HR Polyethylene (Miralax Powder Packet) 17 gm BID PO 12/15/16 20:00 01/14/17 08:59 Future Hold 12/16/16 07:28 17 GM Morphine Sulfate (MoRPHine SULFATE INJ) 2 mg Q4H PRN IV 12/15/16 12:00 12/29/16 11:59 Miscellaneous (Soap Suds Enema) 1 ea DAILY PRN MA 12/16/16 14:00 01/15/17 13:59 12/20/16 14:23 1 EA Mineral Oil (Fleet Oil Enema) 133 ml DAILY PRN MA 12/16/16 14:15 01/15/17 14:14 12/19/16 20:18 133 ML Ondansetron HCl (Zofran Inj) 4 mg Q8H PRN IV 12/16/16 19:30 01/15/17 19:29 12/19/16 16:05 4 MG Sodium Chloride 1,000 ml @ 75 mls/hr [id number] IV 12/17/16 07:45 01/16/17 07:44 Future Hold 12/17/16 21:34 75 MLS/HR Pantoprazole Sodium (Protonix Tab) 40 mg BID PO 12/17/16 20:00 01/16/17 19:59 12/23/16 09:17 40 MG Levothyroxine Sodium (Synthroid Tab) 75 mcg DAILYBB PO 12/18/16 06:30 01/17/17 06:29 12/23/16 06:24 75 MCG Bisacodyl (Dulcolax Supp) 10 mg HS PRN MA 12/18/16 15:30 01/13/17 16:59 Sodium Chloride (Sodium Chloride Tab) 1 gm TID PO 12/20/16 14:00 01/19/17 13:59 12/23/16 09:17 1 GM Cefoxitin Sodium 1000 mg/Dextrose 60 ml @ 100 mls/hr Q12H IV 12/21/16 12:00 12/31/16 11:59 12/22/16 23:13 100 MLS/HR Potassium Chloride (Klor-Con Tab) 40 meq DAILY PO 12/23/16 08:00 12/23/16 19:59 12/23/16 09:19 40 MEQ Enteral Nutritional Formula (Boost Plus Vanilla) 1 can TID PO 12/22/16 20:00 01/21/17 19:59 12/23/16 09:17 1 CAN Objective Vital Signs Date Time Temp Pulse Resp B/P (MAP) Pulse Ox O2 Delivery O2 Flow Rate FiO2 12/23/16 07:10 36.4 91 20 133/77 (95) 90 Nasal Cannula 4.0 12/23/16 00:00 36.6 98 20 125/71 (89) 97 Room Air 4.0 12/23/16 00:00 95 Nasal Cannula 4.0 12/22/16 23:57 36.6 98 20 125/71 (89) 97 Room Air 12/22/16 19:14 36.4 110 22 143/76 (98) 94 Mask 4.0 12/22/16 18:43 36.4 102 20 149/85 (106) 90 Nasal Cannula 4.0 12/22/16 18:30 91 Nasal Cannula 4.0 12/22/16 18:20 94 16 144/80 97 Mask 5 12/22/16 18:10 36.2 94 16 151/79 97 Mask 5 12/22/16 18:00 105 14 140/79 92 Nasal Cannula 4 12/22/16 17:50 101 17 152/84 98 Mask 5 12/22/16 17:40 103 18 145/81 98 Mask 15 12/22/16 17:33 36.2 99 16 143/78 95 Mask 15 12/22/16 15:26 37 102 16 149/87 (107) 95 Nasal Cannula 4 12/22/16 15:00 36.3 102 24 170/107 (128) 96 Nasal Cannula 2.0 Physical Exam General Appearance: WD/WN, no apparent distress Respiratory/Chest: lungs clear, no respiratory distress Cardiovascular: no murmur Abdomen: normal bowel sounds, non tender, soft, + pertinent finding (mildly distended and tympanitic) Laboratory Results Last 24 Hours Test 12/22/16 09:56 12/22/16 12:05 12/22/16 18:35 12/22/16 18:55 Total Bilirubin 3.8 mg/dl Direct Bilirubin 3.2 mg/dl Aspartate Amino Transf (AST/SGOT) 67 U/L Alanine Aminotransferase (ALT/SGPT) 75 U/L Alkaline Phosphatase 277 U/L Total Protein 4.3 gm/dl Albumin 1.6 gm/dl 1.6 gm/dl Bedside Glucose 98 mg/dl 91 mg/dl Sodium Level 137 mmol/L Potassium Level 3.9 mmol/L Chloride Level 103 mmol/L Carbon Dioxide Level 25 mmol/L Anion Gap 9.0 mmol/L Blood Urea Nitrogen 21 mg/dl Creatinine 1.30 mg/dl Est Creatinine Clear Calc Drug Dose 25.7 ml/min Estimated GFR () 42.4 Estimated GFR (Non- 36.6 BUN/Creatinine Ratio 16.0 Random Glucose 96 mg/dl Calcium Level 7.5 mg/dl Phosphorus Level 3.1 mg/dl Magnesium Level 2.3 mg/dl Test 12/23/16 01:34 12/23/16 07:58 12/23/16 08:44 12/23/16 09:25 Activated Partial Thromboplast Time 37.9 SECONDS Partial Thromboplastin Ratio 1.5 Bedside Glucose 94 mg/dl White Blood Count 10.35 K/uL Red Blood Count 2.75 M/uL Hemoglobin 7.8 g/dL Hematocrit 25.1 % Mean Corpuscular Volume 91.3 fL Mean Corpuscular Hemoglobin 28.4 pg Mean Corpuscular Hemoglobin Concent 31.1 g/dl RDW Standard Deviation 48.1 fL RDW Coefficient of Variation 14.4 % Platelet Count 102 K/uL Mean Platelet Volume 9.4 fL Assessment and Plan CBD stones--stable post ERCP with removal 12/22/16 Esophagitis--continue protonix obstipation--recommend miralax bid be resumed and increase to tid and follow stool output--colo no mass but poor prep. If family would treat agressively if a significant colon lesion found with surgery, radiation, chemo as needed then consider elective colonoscopy with better prep. Otherwise at 86 do not feel compelled to push for it--dicussed with the ERIN Maza. elevated LFTS from stones ---ordered for this am. anemia--slight drop this am but no indication of active GI bleeding.
[2016-12-23 09:40] LABS: BUN/CREATININE RATIO 16.5 (10-20); CREATININE 1.1 mg/dl (0.60-1.20); PHOSPHORUS 3.2 mg/dl (2.5-4.9); POTASSIUM 3.1 mmol/L (3.5-5.1)
--- NOTE | 2016-12-23 10:36 | Nephrology Progress Note ---
Nephrology Progress Note Date of Service Dec 23, 2016. Chief Complaint ANA PAULA Subjective No acute events overnight. Anusha is sitting comfortably in a chair this morning. She is eating breakfast. She feels well. She passed formed stool early this morning. She denies abdominal pain. She denies melena or hematochezia. No shortness of breath. Review of Systems A complete review of systems was performed. Pertinent positives are noted above. All other systems are negative. Vital Signs Last 8 Hrs Date Time Temp Pulse Resp B/P (MAP) Pulse Ox O2 Delivery O2 Flow Rate FiO2 12/23/16 08:00 Nasal Cannula 4.0 12/23/16 07:10 36.4 91 20 133/77 (95) 90 Nasal Cannula 4.0 Last Recorded Weight Weight (Kilograms): 54.500 Physical Exam General Appearance: WD/WN, no apparent distress Head: normocephalic, atraumatic Eyes: normal inspection, sclerae normal ENT: normal ENT inspection, pharynx normal Neck: supple, no JVD Respiratory/Chest: chest non-tender, no respiratory distress, no accessory muscle use Cardiovascular: regular rate, rhythm, no gallop Abdomen/GI: non tender, soft, + distended Extremities/Musculoskelatal: normal inspection, + pertinent finding (edema) Neurologic/Psych: alert, normal mood/affect Family History Heart disease Social History Drug Use: none Marital Status: Housing Status: lives with family 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 Laboratory Results Past 24 Hours 12/23/16 08:44 12/22/16 18:55 12/23/16 08:44 Test 12/22/16 12:05 12/22/16 18:35 12/22/16 18:55 12/23/16 01:34 Bedside Glucose 98 mg/dl (70-90) 91 mg/dl (70-90) Anion Gap 9.0 mmol/L (3-11) Est Creatinine Clear Calc Drug Dose 25.7 ml/min Estimated GFR () 42.4 Estimated GFR (Non- 36.6 BUN/Creatinine Ratio 16.0 (10-20) Calcium Level 7.5 mg/dl (8.5-10.1) Phosphorus Level 3.1 mg/dl (2.5-4.9) Magnesium Level 2.3 mg/dl (1.8-2.4) Albumin 1.6 gm/dl (3.4-5.0) Activated Partial Thromboplast Time 37.9 SECONDS (21.0-31.0) Partial Thromboplastin Ratio 1.5 Test 12/23/16 07:58 12/23/16 08:44 Bedside Glucose 94 mg/dl (70-90) Red Blood Count 2.75 M/uL (4.2-5.4) Mean Corpuscular Volume 91.3 fL (80-100) Mean Corpuscular Hemoglobin 28.4 pg (25-34) Mean Corpuscular Hemoglobin Concent 31.1 g/dl (32-36) RDW Standard Deviation 48.1 fL (36.4-46.3) RDW Coefficient of Variation 14.4 % (11.5-14.5) Mean Platelet Volume 9.4 fL (7.4-10.4) Activated Partial Thromboplast Time 100.8 SECONDS (21.0-31.0) Partial Thromboplastin Ratio 3.9 Anion Gap 12.0 mmol/L (3-11) Est Creatinine Clear Calc Drug Dose 30.4 ml/min Estimated GFR () 51.9 Estimated GFR (Non- 44.8 BUN/Creatinine Ratio 16.5 (10-20) Calcium Level 7.4 mg/dl (8.5-10.1) Phosphorus Level 3.2 mg/dl (2.5-4.9) Total Bilirubin 3.2 mg/dl (0.2-1) Direct Bilirubin 2.5 mg/dl (0-0.2) Aspartate Amino Transf (AST/SGOT) 61 U/L (15-37) Alanine Aminotransferase (ALT/SGPT) 67 U/L (12-78) Alkaline Phosphatase 380 U/L (45-117) Total Protein 4.4 gm/dl (6.4-8.2) Albumin 1.6 gm/dl (3.4-5.0) Allergies Coded Allergies: Doxycycline (Verified Allergy, Intermediate, RASH, 12/21/16) Trimethoprim (Verified Allergy, Intermediate, RASH, 12/21/16) Adhesives (Verified Allergy, Unknown, HAD RXN TO [employer] PATCHES, ) Amoxicillin (Verified Allergy, Unknown, RASH, 12/21/16) Atorvastatin (Verified Allergy, Unknown, UNKNOWN, 12/21/16) Carbamazepine (Verified Allergy, Unknown, 12/21/16) Hydantoins (Verified Allergy, Unknown, 12/21/16) Levofloxacin (Verified Allergy, Unknown, UNKNOWN, 12/21/16) Penicillins (Verified Allergy, Unknown, AMOXIL,HAS TOLERATED CEPHS, ) has tolerated cefepime and ceftriaxone on previous admissions Phenytoin (Verified Allergy, Unknown, 12/21/16) Sulfamethoxazole w/Trimethoprim (Unverified Allergy, Unknown, VASCULITIS, 12/21/16) Medications Current Inpatient Medications Medications (Trade) Dose Ordered Sig/Phillip Route Start Time Stop Time Status Last Admin Dose Admin Acetaminophen (Tylenol Tab) 650 mg Q4H PRN PO 12/14/16 17:00 01/13/17 16:59 12/19/16 11:45 650 MG Cholecalciferol (Vitamin D Tab) 2,000 inter.unit DAILY PO 12/15/16 08:00 01/14/17 08:59 12/23/16 09:18 2,000 INTER.UNIT Cyanocobalamin (Vitamin B-12 Tab) 1,000 mcg DAILY PO 12/15/16 08:00 01/14/17 08:59 12/23/16 09:18 1,000 MCG Diltiazem HCl (TIAzac CAP) 240 mg DAILY PO 12/15/16 08:00 01/14/17 08:59 Future hold 12/23/16 09:17 240 MG Docusate Sodium (coLACE CAP) 100 mg BID PO 12/14/16 20:00 01/13/17 20:59 12/23/16 09:18 100 MG Nystatin (Mycostatin Susp) 5 ml QID PO 12/14/16 19:00 12/24/16 18:59 12/23/16 09:17 5 ML Pravastatin Sodium (Pravachol Tab) 20 mg HS PO 12/14/16 21:00 01/13/17 20:59 12/22/16 21:13 20 MG Mupirocin (Bactroban 2% Oint) 1 appln DAILY EXT 12/15/16 08:00 01/14/17 07:59 12/23/16 09:19 1 APPLN Heparin Sodium/ Dextrose 500 ml @ 15 mls/hr Q24H PRN IV 12/15/16 01:00 01/14/17 00:59 Future hold 12/23/16 02:45 17 MLS/HR Polyethylene (Miralax Powder Packet) 17 gm BID PO 12/15/16 20:00 01/14/17 08:59 Future hold 12/16/16 07:28 17 GM Morphine Sulfate (MoRPHine SULFATE INJ) 2 mg Q4H PRN IV 12/15/16 12:00 12/29/16 11:59 Miscellaneous (Soap Suds Enema) 1 ea DAILY PRN WI 12/16/16 14:00 01/15/17 13:59 12/20/16 14:23 1 EA Mineral Oil (Fleet Oil Enema) 133 ml DAILY PRN WI 12/16/16 14:15 01/15/17 14:14 12/19/16 20:18 133 ML Ondansetron HCl (Zofran Inj) 4 mg Q8H PRN IV 12/16/16 19:30 01/15/17 19:29 12/19/16 16:05 4 MG Sodium Chloride 1,000 ml @ 75 mls/hr [id number] IV 12/17/16 07:45 01/16/17 07:44 Future Hold 12/17/16 21:34 75 MLS/HR Pantoprazole Sodium (Protonix Tab) 40 mg BID PO 12/17/16 20:00 01/16/17 19:59 12/23/16 09:17 40 MG Levothyroxine Sodium (Synthroid Tab) 75 mcg DAILYBB PO 12/18/16 06:30 01/17/17 06:29 12/23/16 06:24 75 MCG Bisacodyl (Dulcolax Supp) 10 mg HS PRN [place] 12/18/16 15:30 01/13/17 16:59 Sodium Chloride (Sodium Chloride Tab) 1 gm TID PO 12/20/16 14:00 01/19/17 13:59 12/23/16 09:17 1 GM Cefoxitin Sodium 1000 mg/Dextrose 60 ml @ 100 mls/hr Q12H IV 12/21/16 12:00 12/31/16 11:59 12/22/16 23:13 100 MLS/HR Potassium Chloride (Klor-Con Tab) 40 meq DAILY PO 12/23/16 08:00 12/23/16 19:59 12/23/16 09:19 40 MEQ Enteral Nutritional Formula (Boost Plus Vanilla) 1 can TID PO 12/22/16 20:00 01/21/17 19:59 12/23/16 09:17 1 CAN Warfarin Sodium (Coumadin Tab) 5 mg DAILY@16 PO 12/23/16 16:00 01/22/17 15:59 UNV Impression (1) Hyponatremia (2) ANA PAULA (acute kidney injury) (3) Hypertension Nos (4) Anemia (5) Obstipation Anusha is a 86-year-old female admitted to the hospital with constipation and fecal impaction. Anusha unfortunately developed ANA PAULA consistent with ATN. Creatinine peaked at 2.4 mg/dL on December 18. Kidney function has recovered to baseline. Anusha developed hyponatremia. Oral intake and nutrition have been poor. She has increased GI losses. She does have evidence of TBW in the form of dependent edema associated with hypoalbuminemia. Urine osmolality was inappropriately high consistent with tubular injury or high ADH state. Urine sodium and potassium both low consistent with prerenal/sodium avid state. Nutritional status continues to decline in setting of recent prep for colonoscopy and ongoing LFT abnormalities. She does not have clinical evidence of cholecystitis. Colonoscopy was poor prep but did not identify any pathology. Diet advanced. Appetite appropriate. Will stop NaCl tablets. Encourage nutrition and oral solute intake. Replace potassium - 40 mEq PO this AM. Recommendations -- 80 mEq KCl today -- Monitor BID metabolic profile -- Repeat metabolic profile with magnesium and phosphorus tomorrow AM -- Hold NaCl tablets (1 gram TID) -- Continue 1.5 L/d water restriction -- Medications are appropriate for renal function
--- NOTE | 2016-12-23 10:55 | Surgery Progress Note ---
Surgery Progress Note Date of Service Dec 23, 2016. Subjective pt states she is feeling somewhat better today. up in chair eating eggs. denies abdominal pain . Objective Vital Signs: Date Time Temp Pulse Resp B/P (MAP) Pulse Ox O2 Delivery O2 Flow Rate FiO2 12/23/16 08:00 Nasal Cannula 4.0 12/23/16 07:10 36.4 91 20 133/77 (95) 90 Nasal Cannula 4.0 12/23/16 00:00 36.6 98 20 125/71 (89) 97 Room Air 4.0 12/23/16 00:00 95 Nasal Cannula 4.0 12/22/16 23:57 36.6 98 20 125/71 (89) 97 Room Air 12/22/16 19:14 36.4 110 22 143/76 (98) 94 Mask 4.0 12/22/16 18:43 36.4 102 20 149/85 (106) 90 Nasal Cannula 4.0 12/22/16 18:30 91 Nasal Cannula 4.0 12/22/16 18:20 94 16 144/80 97 Mask 5 12/22/16 18:10 36.2 94 16 151/79 97 Mask 5 12/22/16 18:00 105 14 140/79 92 Nasal Cannula 4 12/22/16 17:50 101 17 152/84 98 Mask 5 12/22/16 17:40 103 18 145/81 98 Mask 15 12/22/16 17:33 36.2 99 16 143/78 95 Mask 15 12/22/16 15:26 37 102 16 149/87 (107) 95 Nasal Cannula 4 12/22/16 15:00 36.3 102 24 170/107 (128) 96 Nasal Cannula 2.0 General Appearance: no apparent distress Neck: supple, no JVD Respiratory/Chest: no respiratory distress, no accessory muscle use Abdomen: non tender, soft Laboratory Results: Results Past 24 Hours Test 12/22/16 12:05 12/22/16 18:35 12/22/16 18:55 12/23/16 01:34 Range/Units Bedside Glucose 98 91 70-90 mg/dl Sodium Level 137 136-145 mmol/L Potassium Level 3.9 3.5-5.1 mmol/L Chloride Level 103 98-107 mmol/L Carbon Dioxide Level 25 21-32 mmol/L Anion Gap 9.0 3-11 mmol/L Blood Urea Nitrogen 21 7-18 mg/dl Creatinine 1.30 0.60-1.20 mg/dl Est Creatinine Clear Calc Drug Dose 25.7 ml/min Estimated GFR () 42.4 Estimated GFR (Non- 36.6 BUN/Creatinine Ratio 16.0 10-20 Random Glucose 96 70-99 mg/dl Calcium Level 7.5 8.5-10.1 mg/dl Phosphorus Level 3.1 2.5-4.9 mg/dl Magnesium Level 2.3 1.8-2.4 mg/dl Albumin 1.6 3.4-5.0 gm/dl Activated Partial Thromboplast Time 37.9 21.0-31.0 SECONDS Partial Thromboplastin Ratio 1.5 Test 12/23/16 07:58 12/23/16 08:44 12/23/16 10:46 Range/Units Bedside Glucose 94 70-90 mg/dl White Blood Count 10.35 4.8-10.8 K/uL Red Blood Count 2.75 4.2-5.4 M/uL Hemoglobin 7.8 12.0-16.0 g/dL Hematocrit 25.1 37-47 % Mean Corpuscular Volume 91.3 80-100 fL Mean Corpuscular Hemoglobin 28.4 25-34 pg Mean Corpuscular Hemoglobin Concent 31.1 32-36 g/dl RDW Standard Deviation 48.1 36.4-46.3 fL RDW Coefficient of Variation 14.4 11.5-14.5 % Platelet Count 102 130-400 K/uL Mean Platelet Volume 9.4 7.4-10.4 fL Activated Partial Thromboplast Time 100.8 21.0-31.0 SECONDS Partial Thromboplastin Ratio 3.9 Sodium Level 137 136-145 mmol/L Potassium Level 3.1 3.5-5.1 mmol/L Chloride Level 102 98-107 mmol/L Carbon Dioxide Level 23 21-32 mmol/L Anion Gap 12.0 3-11 mmol/L Blood Urea Nitrogen 18 7-18 mg/dl Creatinine 1.10 0.60-1.20 mg/dl Est Creatinine Clear Calc Drug Dose 30.4 ml/min Estimated GFR () 51.9 Estimated GFR (Non- 44.8 BUN/Creatinine Ratio 16.5 10-20 Random Glucose 78 70-99 mg/dl Calcium Level 7.4 8.5-10.1 mg/dl Phosphorus Level 3.2 2.5-4.9 mg/dl Total Bilirubin 3.2 0.2-1 mg/dl Direct Bilirubin 2.5 0-0.2 mg/dl Aspartate Amino Transf (AST/SGOT) 61 15-37 U/L Alanine Aminotransferase (ALT/SGPT) 67 12-78 U/L Alkaline Phosphatase 380 45-117 U/L Total Protein 4.4 6.4-8.2 gm/dl Albumin 1.6 3.4-5.0 gm/dl Assessment & Plan 12/23/16 ercp successful. labs improving. pt really is not a surgical candidate. recommend we see how she does. if she develops signs in the future of acute cholecystitis would rec per paige tube. will sign off ..please call if we can help. 12/22/16 awaiting GI rec's regarding ERCP vs MRCP pt is not a surgical candidate...pending ERCP/MRCP results and lab trend, could require perc paige tube, however at this point she does not clinically have acute cholecystitis will continue to follow. no surgical plans at this point.... awaiting GI rec's regarding ERCP vs MRCP pt is not a surgical candidate...pending ERCP/MRCP results and lab trend, could require perc paige tube, however at this point she does not clinically have acute cholecystitis will continue to follow. no surgical plans at this point....
[2016-12-23 11:10] LABS: HEMATOCRIT 25.8 % (37-47); MEAN CELL VOLUME 91.5 fL (80-100); MEAN CORPUSCULAR HEMOGLOBIN 29.4 pg (25-34); MEAN PLATELET VOLUME 9.9 fL (7.4-10.4); PLATELET COUNT 128 K/uL (130-400); RED BLOOD COUNT 2.82 M/uL (4.2-5.4); WHITE BLOOD COUNT 12.09 K/uL (4.8-10.8)
[2016-12-23 11:12] LABS: MEAN CORPUSCULAR HGB CONC 32.2 g/dl (32-36)
[2016-12-23 11:19] LABS: PROTHROMBIN TIME (PATIENT) 10.3 SECONDS (9.0-12.0)
[2016-12-23] MEDS: CEFOXITIN IV 1,000 MG in DEXTROSE 5% 50ML 50 ML IV SCH (12:12)
[2016-12-23] MEDS ORDERED: WARFARIN SOD 5 MG TAB PO SCH (16:00)
[2016-12-23 16:20] LABS: PARTIAL THROMBOPLASTIN RATIO 1.2
[2016-12-23] MEDS ORDERED: HEPARIN IV BOLUS 4,000 UNIT in SYRINGE 0 ML IV ONE (18:00)
[2016-12-23] MEDS: POLYETHYLENE (MIRALAX) 17 GM PACK PO SCH (20:07)
--- NOTE | 2016-12-23 21:58 | DIAGNOSTIC IMAGING REPORT ---
CHEST ONE VIEW PORTABLE CLINICAL HISTORY: SOB dyspnea COMPARISON STUDY: 12/20/2016 FINDINGS: Findings consistent with pulmonary edema. Heart is mildly enlarged. Diaphragms smooth. IMPRESSION: Pulmonary edema Electronically signed by: Kirill Escoto M.D. 12/23/2016 9:56 PM Dictated Date/Time: 12/23/2016 9:56 PM
[2016-12-23] MEDS ORDERED: VANCOMYCIN INJ 1,000 MG in SODIUM CHLORIDE 0.9% 250ML 250 ML IV STA (22:24)
[2016-12-23] MEDS ORDERED: IPRATROPIUM BROMIDE NEB SOLN 0.02% 2.5 ML VIAL INH PRN (22:45)
[2016-12-23] MEDS ORDERED: LEVALBUTEROL 1.25MG/0.5ML NEB INH PRN (22:45)
[2016-12-23] MEDS: AZTREONAM IV 2,000 MG in DEXTROSE 5% 100ML 100 ML IV SCH (22:50)
[2016-12-23] MEDS: PRAVASTATIN SOD 20 MG TAB PO SCH (22:50)
[2016-12-23 22:51] LABS: ISTAT ALLEN TEST Pass; ISTAT ARTERIAL BLOOD GAS HCO3 20 meq/L (19-24); ISTAT ARTERIAL BLOOD GAS PCO2 30 mmHg (35-46); ISTAT ARTERIAL BLOOD GAS PO2 60 mmHg (80-95); ISTAT ARTERIAL BLOOD GAS pH 7.44 (7.35-7.45); ISTAT CARBON DIOXIDE 21 mEq/l (24-31); ISTAT DELIVERY SYSTEM NonRb Mask; ISTAT FIO2 100 %; ISTAT SITE R Radial
[2016-12-23] MEDS ORDERED: VANCOMYCIN INJ 1,350 MG in SODIUM CHLORIDE 0.9% 250ML 250 ML IV SCH (23:00)
[2016-12-23 23:27] LABS: HEMATOCRIT 24.4 % (37-47); MEAN CELL VOLUME 92.1 fL (80-100); MEAN CORPUSCULAR HEMOGLOBIN 30.2 pg (25-34); MEAN PLATELET VOLUME 10.6 fL (7.4-10.4); PLATELET COUNT 150 K/uL (130-400); RED BLOOD COUNT 2.65 M/uL (4.2-5.4); WHITE BLOOD COUNT 15.16 K/uL (4.8-10.8)
[2016-12-23] MEDS: ALBUMIN 25% 50 ML with FUROSEMIDE INJ 40 MG IV SCH ×2 (23:30)
[2016-12-23 23:48] LABS: COMPLETE YES; ECHINOCYTES 1+; LYMPH ABS # 1.18 K/uL (1.2-3.4); LYMPHOCYTE % 7.8 %; MEAN CORPUSCULAR HGB CONC 32.8 g/dl (32-36); META ABS # 0.26 K/uL (0-0); METAMYELOCYTE % 1.7 %; MYELOCYTE % 4.3 %; NEUTROPHILS % 84.5 %
[2016-12-24] VITALS (22 sets, daily range): BP systolic 95–154; BP diastolic 62–90; PULSE 83–113; TEMP 36.4–37.2; O2SAT 83–100
[2016-12-24 00:23] LABS: ALKALINE PHOSPHATASE 547 U/L (45-117); ALT/SGPT 78 U/L (12-78); BLOOD UREA NITROGEN 22 mg/dl (7-18); BUN/CREATININE RATIO 14.6 (10-20); CALCIUM 7.3 mg/dl (8.5-10.1); CARBON DIOXIDE 22 mmol/L (21-32); CHLORIDE 100 mmol/L (98-107); GLUCOSE 204 mg/dl (70-99); SODIUM 134 mmol/L (136-145)
[2016-12-24] MEDS ORDERED: VANCOMYCIN CONSULT ACTIVE PRN (00:30)
[2016-12-24 01:41] LABS: PARTIAL THROMBOPLASTIN RATIO 3.1
[2016-12-24 01:51] LABS: POTASSIUM 3.9 mmol/L (3.5-5.1)
[2016-12-24] MEDS: LEVALBUTEROL 1.25MG/0.5ML NEB INH SCH ×4 (01:53→19:45)
[2016-12-24] MEDS: IPRATROPIUM BROMIDE NEB SOLN 0.02% 2.5 ML VIAL INH SCH ×4 (01:53→19:45)
[2016-12-24] MEDS: HEPARIN 25,000 UNIT/500ML D5W 500 ML IV PRN ×2 (02:25→04:50)
[2016-12-24] MEDS ORDERED: LEVALBUTEROL/IPRATROPIUM NEB INH SCH (03:00)
[2016-12-24] MEDS: CLINDAMYCIN IV 900 MG in DEXTROSE 5% ADD-VANTAGE 100ML 100 ML IV SCH ×3 (03:03→17:47)
[2016-12-24] MEDS: ALBUMIN 25% 50 ML with FUROSEMIDE INJ 40 MG IV SCH ×8 (03:05→13:13)
[2016-12-24] MEDS: LEVOTHYROXINE 75 MCG TAB PO SCH (06:00)
[2016-12-24 06:20] LABS: PARTIAL THROMBOPLASTIN RATIO 2.7; PROTHROMBIN TIME (PATIENT) 10.4 SECONDS (9.0-12.0)
[2016-12-24 06:37] LABS: BASO % 0.1 %; BASO ABS # 0.01 K/uL (0-0.2); COMPLETE YES; EOS % 0.2 %; HEMATOCRIT 19.5 % (37-47); IG% 2.9 %; LYMPH % 10.6 %; LYMPH ABS # 1.16 K/uL (1.2-3.4); MEAN CELL VOLUME 89.9 fL (80-100); MEAN CORPUSCULAR HEMOGLOBIN 28.6 pg (25-34); MEAN CORPUSCULAR HGB CONC 31.8 g/dl (32-36); MEAN PLATELET VOLUME 10.2 fL (7.4-10.4); MONO % 7.8 %; NEUT % 78.4 %; PLATELET COUNT 92 K/uL (130-400); PLT ESTIMATE DECREASED; RED BLOOD COUNT 2.17 M/uL (4.2-5.4); TOXIC GRANULATION 1+; WHITE BLOOD COUNT 10.92 K/uL (4.8-10.8)
[2016-12-24 06:40] LABS: BUN/CREATININE RATIO 17.2 (10-20); CREATININE 1.3 mg/dl (0.60-1.20); POTASSIUM 3.4 mmol/L (3.5-5.1)
[2016-12-24] MEDS: AZTREONAM IV 2,000 MG in DEXTROSE 5% 100ML 100 ML IV SCH (06:46)
[2016-12-24 06:48] LABS: ALB/GLOB RATIO 0.7 (0.9-2); PHOSPHORUS 2.3 mg/dl (2.5-4.9)
[2016-12-24 07:24] LABS: HEMATOCRIT 18.1 % (37-47)
[2016-12-24] MEDS ORDERED: FUROSEMIDE INJ 40 MG in SYRINGE 0 ML IV SCH (08:00)
[2016-12-24] MEDS: DOCUSATE SODIUM 100 MG CAP PO SCH ×2 (08:26→20:46)
[2016-12-24] MEDS: POLYETHYLENE (MIRALAX) 17 GM PACK PO SCH ×2 (08:26→20:46)
[2016-12-24] MEDS: CHOLECALCIFEROL 1000 INTER.UNIT TAB PO SCH (08:26)
[2016-12-24] MEDS: CYANOCOBALAMIN 500 MCG TAB (VIT B-12) PO SCH (08:26)
[2016-12-24] MEDS: BOOST PLUS VANILLA PO SCH ×6 (08:26→20:46)
[2016-12-24] MEDS: NYSTATIN SUSP 500,000 U/5 ML UDC PO SCH ×3 (08:26→16:42)
[2016-12-24] MEDS ORDERED: POTASSIUM CHLR 10 MEQ / WTR 10 MEQ in PREMIXED WATER 100 ML IV SCH (09:00)
[2016-12-24 09:03] LABS: PARTIAL THROMBOPLASTIN RATIO 2.2
[2016-12-24] MEDS ORDERED: LORAZEPAM 2 MG/ML 1 ML VIAL IV PRN ×2 (09:15)
--- NOTE | 2016-12-24 09:20 | Hospitalist Progress Note ---
Hospitalist Progress Note Date of Service Dec 24, 2016. (Kamla Omalley PA-C) Subjective Pt evaluation today including: conversation w/ patient, conversation w/ family , physical exam, chart review, lab review, review of studies, conversation w/ business info consultant Pain: None Voiding: sweet catheter in place Overnight the pt developed acute respiratory distress requiring placement on Bipap, where yesterday she was on 2L NC. A CXR showed worsening pulmonary edema , also with possible development of RLL infiltrate. Hgb acutely dropped from 8s down to 6.2, then on repeat it was 6.1. Pt was seen this morning and is awake, talking and oriented. She reports feeling crappy, and isn't breathing well. She initially refused the bipap, but once tried it realized her breathing was actually easier. It was off during exam as she attempted to eat breakfast, but only had two small bites of a banana. She denies feeling chest pain or palpitations. She has not had a BM in 2 days. I discussed needing a blood transfusion with her and that her hgb is dropping. She has consented for blood. We also discussed her code status and she wishes to remain full code at this time. I spoke with the patients son, Travis over the phone at [phone] to inform him of overnight events. We discussed that her current status is tenuous, and that she needs a blood transfusion this morning which he is also agreeable with. We discussed her decision to be full code and he is in agreement with his mother. A brother is traveling into town today, so both children will be present here later today. Constitutional: + fatigue, No fever, No chills, No sweats Eyes: No redness, No diplopia ENT: No nasal symptoms, No sore throat, No trouble swallowing Respiratory: + wheezing, + shortness of breath, No cough, No sputum Cardiovascular: No chest pain, No palpitations Abdomen: + problem reported (Last BM 2 days ago), No pain, No nausea, No vomiting, No diarrhea, No constipation Musculoskeletal: + swelling (peripherally), No joint pain Neurologic: + weakness, No numbness/tingling Endo: + fatigue Skin: No rash, No itch (Kamla Omalley PA-C) Objective Vital Signs Date Time Temp Pulse Resp B/P (MAP) Pulse Ox O2 Delivery O2 Flow Rate FiO2 12/24/16 07:58 36.4 90 22 95/62 (73) 88 Non-Rebreather 100 12/24/16 07:13 83 20 94 BiPAP/CPAP 50 12/24/16 03:26 36.4 94 24 148/69 (95) 97 BiPAP 40 12/24/16 03:24 92 95 40 12/24/16 01:59 98 96 50 12/24/16 01:58 98 20 96 BiPAP/CPAP 50 12/24/16 00:46 95 97 50 12/24/16 00:20 36.9 100 24 154/90 (111) 93 High Flow Oxygen 50.0 97 12/23/16 23:42 36.7 100 28 146/81 (102) 92 Non-Rebreather 15.0 12/23/16 21:30 100 32 126/68 (87) 89 15.0 12/23/16 16:17 Nasal Cannula 4.0 12/23/16 14:47 36.4 99 18 150/87 (108) 94 Nasal Cannula 2.0 12/23/16 12:20 96 Nasal Cannula 2.0 12/23/16 12:00 99 Nasal Cannula 3.0 12/23/16 11:48 36.2 102 20 140/76 (97) 99 Nasal Cannula 4.0 (Kamla Omalley, PA-C) Physical Exam General Appearance: WD/WN, + moderate distress (appears more comfortable on Bipap), + pertinent finding (+jaundice) Eyes: PERRL, EOMI ENT: hearing grossly normal, pharynx normal Neck: supple, no JVD Respiratory/Chest: + accessory muscle use, + crackles, + pertinent finding (On nonrebreather @15L, coarse breath sounds in all meyer, worse crackles in the R base, + prolonged expiratory phase) Cardiovascular: regular rate, rhythm, + pertinent finding (+ slight tachycardia , PT=868. Her BP is 95/70 at bedside) Abdomen: non tender, soft, no organomegaly, + pertinent finding (+hypoactive bowel sounds, ) Extremities: + pertinent finding (2+ to 3+ pitting edema in BLE, third spacing in upper extremities) Neurologic/Psychiatric: alert, oriented x 3 Skin: + jaundice, + pertinent finding (multiple areas of ecchymosis over BUE.) (Kamla Omalley, SANGITA) Laboratory Results Last 24 Hours Test 12/23/16 10:57 12/23/16 11:38 12/23/16 15:44 12/23/16 16:45 White Blood Count 12.09 K/uL Red Blood Count 2.82 M/uL Hemoglobin 8.3 g/dL Hematocrit 25.8 % Mean Corpuscular Volume 91.5 fL Mean Corpuscular Hemoglobin 29.4 pg Mean Corpuscular Hemoglobin Concent 32.2 g/dl RDW Standard Deviation 48.4 fL RDW Coefficient of Variation 14.5 % Platelet Count 128 K/uL Mean Platelet Volume 9.9 fL Prothrombin Time 10.3 SECONDS Prothromb Time International Ratio 1.0 Bedside Glucose 127 mg/dl 237 mg/dl Activated Partial Thromboplast Time 31.6 SECONDS Partial Thromboplastin Ratio 1.2 Test 12/23/16 19:38 12/23/16 22:36 12/23/16 23:17 12/24/16 01:04 Bedside Glucose 249 mg/dl Blood Gas Sample Site R Radial Bedside Blood Gas pH (LAB) 7.44 Bedside Blood Gas pCO2 (LAB) 30 mmHg Bedside Blood Gas pO2 (LAB) 60 mmHg Bedside Blood Gas HCO3 (LAB) 20 meq/L Bedside Blood Gas Total CO2 21 mEq/l Bedside Blood Gas Base Excess (LAB) -4.0 meq/L Bedside Blood Gas O2 Saturation 92.0 % Melecio Test Pass Oxygen Delivery Device NonRb Mask Bedside FiO2 100 % White Blood Count 15.16 K/uL Red Blood Count 2.65 M/uL Hemoglobin 8.0 g/dL Hematocrit 24.4 % Mean Corpuscular Volume 92.1 fL Mean Corpuscular Hemoglobin 30.2 pg Mean Corpuscular Hemoglobin Concent 32.8 g/dl Platelet Count 150 K/uL Mean Platelet Volume 10.6 fL RDW Standard Deviation 49.1 fL RDW Coefficient of Variation 14.7 % Nucleated RBC Absolute Count (auto) 0.02 K/uL Neutrophils % (Manual) 84.5 % Lymphocytes % (Manual) 7.8 % Monocytes % (Manual) 1.7 % Metamyelocytes % 1.7 % Myelocytes % 4.3 % Nucleated Red Blood Cells % 0.1 % Neutrophils # (Manual) 12.81 K/uL Total Absolute Neutrophils 12.81 K/uL Lymphocytes # (Manual) 1.18 K/uL Total Absolute Lymphocytes 1.18 K/uL Monocytes # (Manual) 0.26 K/uL Metamyelocytes # 0.26 K/uL Myelocytes # 0.65 K/uL Echinocytes 1+ Sodium Level 134 mmol/L Potassium Level mmol/L 3.9 mmol/L Chloride Level 100 mmol/L Carbon Dioxide Level 22 mmol/L Anion Gap 12.0 mmol/L Blood Urea Nitrogen 22 mg/dl Creatinine 1.50 mg/dl Est Creatinine Clear Calc Drug Dose 22.3 ml/min Estimated GFR () 35.7 Estimated GFR (Non- 30.8 BUN/Creatinine Ratio 14.6 Random Glucose 204 mg/dl Calcium Level 7.3 mg/dl Magnesium Level mg/dl 2.0 mg/dl Total Bilirubin 2.7 mg/dl Direct Bilirubin mg/dl 1.9 mg/dl Aspartate Amino Transf (AST/SGOT) U/L 73 U/L Alanine Aminotransferase (ALT/SGPT) 78 U/L Alkaline Phosphatase 547 U/L Total Protein 4.9 gm/dl Albumin 1.7 gm/dl Activated Partial Thromboplast Time 80.0 SECONDS Partial Thromboplastin Ratio 3.1 Test 12/24/16 05:20 12/24/16 06:55 12/24/16 07:04 12/24/16 08:30 White Blood Count 10.92 K/uL Red Blood Count 2.17 M/uL Hemoglobin 6.2 g/dL 6.1 g/dL Hematocrit 19.5 % 18.1 % Mean Corpuscular Volume 89.9 fL Mean Corpuscular Hemoglobin 28.6 pg Mean Corpuscular Hemoglobin Concent 31.8 g/dl Platelet Count 92 K/uL Mean Platelet Volume 10.2 fL Neutrophils (%) (Auto) 78.4 % Lymphocytes (%) (Auto) 10.6 % Monocytes (%) (Auto) 7.8 % Eosinophils (%) (Auto) 0.2 % Basophils (%) (Auto) 0.1 % Neutrophils # (Auto) 8.56 K/uL Lymphocytes # (Auto) 1.16 K/uL Monocytes # (Auto) 0.85 K/uL Eosinophils # (Auto) 0.02 K/uL Basophils # (Auto) 0.01 K/uL RDW Standard Deviation 48.1 fL RDW Coefficient of Variation 14.4 % Immature Granulocyte % (Auto) 2.9 % Immature Granulocyte # (Auto) 0.32 K/uL Toxic Granulation 1+ Platelet Estimate DECREASED Prothrombin Time 10.4 SECONDS Prothromb Time International Ratio 1.0 Activated Partial Thromboplast Time 69.5 SECONDS Partial Thromboplastin Ratio 2.7 Sodium Level 134 mmol/L Potassium Level 3.4 mmol/L Chloride Level 101 mmol/L Carbon Dioxide Level 22 mmol/L Anion Gap 11.0 mmol/L Blood Urea Nitrogen 22 mg/dl Creatinine 1.30 mg/dl Est Creatinine Clear Calc Drug Dose 25.7 ml/min Estimated GFR () 42.4 Estimated GFR (Non- 36.6 BUN/Creatinine Ratio 17.2 Random Glucose 194 mg/dl Calcium Level 7.0 mg/dl Phosphorus Level 2.3 mg/dl Total Bilirubin 2.2 mg/dl Aspartate Amino Transf (AST/SGOT) 78 U/L Alanine Aminotransferase (ALT/SGPT) 68 U/L Alkaline Phosphatase 414 U/L Total Protein 4.5 gm/dl Albumin 1.9 gm/dl Globulin 2.6 gm/dl Albumin/Globulin Ratio 0.7 Bedside Glucose 198 mg/dl Test 12/24/16 08:36 (Kamla Omalley, SANGITA) Assessment and Plan Hospital Course Synopsis: 86 yo female with a 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 PT was manually disimpacted in ER successfully. Hemoccult negative, continues to be anemic. A colonoscopy was performed on 12/22 for disimpaction. It was not a diagnostic scope. Pt developed acute hypoxemic respiratory failure after admission requiring NRB facemask, likely secondary to flash Pulm edema from fluid overload in setting of severe . LLE edema found on admission and Doppler confirms Acute DVT LLE. Also incidentally noted to have choledocholithiasis on CT scan abd/pel on admission as well as cholelithiasis and mild-mod left hydronephrosis, severe fecal impaction. Her LFTs trended upward with total and direct bilirubin so General Surgery was consulted, she underwent ERCP with gallstone removal on 12/22/16 which was successful. Pt was started on coumadin on 12/23 and got 1 dose for LLE DVT. Late at night on 12/23 the patient again developed acute respiratory failure where she required placement on BiPAP, her hgb dropped to 6.1. Heparin gtt and coumadin were stopped. Pt was consented for blood transfusion and was scheduled for 1 U PRBCs with IV lasix to prevent volume overload. She was started on aztreoman and vanc overnight, and cefoxitime has been on board since earlier in admission. Pts is being transferred to the ICU. Acute respiratory failure - Pt requiring BiPAP now, attempted trial on nonrebreather @ 15L but O2 sats dropped to low 80s. Rechecking ABG. - Repeat CXR completed overnight showing pulmonary edema, also possible RLL infiltrate by my review, she received albumin/lasix overnight. - Pt resumed oral diet yesterday so possibly aspirated - Abx: 1 dose of Vanc overnight, aztreonam and cefoxitime on board - Change oral meds to IV or hold while on Bipap. - Discussed with ICU attending, plan to transfer to the unit. Acute blood loss anemia on chronic - Hgb dropped from 8s to 6.2, recheck was 6.1. - Pt was consented for blood, type &screen, will only transfuse 1 U PRBCs and give lasix IV 40 mg due to pulmonary edema and severe . - Trend H&H - Hold diltiazem this morning for perfusion - Source unknown- Consider chest CT to r/o pulmonary bleed of some sort? Pt without BM in 2 days although had GI bleeding earlier on in this admit without a diagnostic colonoscopy. Obstipation/Fecal impaction/Abd pain/Sterile colitis/ choledocholithiasis with dilated CBD - s/p manual disimpaction - Abd pain now resolved after trials of enemas/disimpaction/bowel regimen and s/ p colonoscopy on 12/[address] Macias for disimpaction. - Had hematemesis/coffee ground emesis on 12/17, heparin gtt held, then restarted after that resolved and Hgb stable. No hematemesis since 12/20. - With h/o recent GI bleed on previous admission and severe constipation--> question if has colon CA? - colonoscopy was not diagnostic, it was for disimpaction. PT's son, Travis, and I discussed if he would want aggressive measures taken if the pt was diagnosed with something like a colon cancer, and he said no, that he would not be agreeable to surger, chemo, radiation, or other extensive workup. This was discussed with Dr. Henderson as well, and he agrees no follow up in the office necessary if the pt and family wouldn't pursue aggressive measures. - EGD completed on 12/17 showing LA Grade C reflux esophagitis, hiatal hernia and few gastric polyps. - ERCP completed on 12/22 with gallstone removal- jaundice improving - Allow mirilax BID today, then increase to TID if she tolerates a regular diet today, continue colace 100 mg BID. Elevated bilirubin - Total bili peaked at 7.0, total bili trending down but pt still has jaundice. - Gi on board- appreciate recs: Completed EUS/ERCP 12/[address] Fischer. - Patient is denying any abdominal c/o - Cont cefoxitime (day #4) d/t pts allergies and will cover for necrotizing cholecystitis - will keep on for at least a 10 day course Hematemesis- likely from esophagitis with wretching - resolved - following H/H, dropped acutely this morning to 6.1. STOP heparin gtt now, hold coumadin. - GI on board - Pt completed Colonoscopy 12/21 - Nutrition consulted: input appreciated-Boost Breeze, prealbumin is low - continue Boost TID and encourage oral diet, pt is tolerating without difficulty so far. Urinary retention secondary to constipation-pt cut her Sweet with scissors with episode of delirium-> retention resolved with Sweet Sweet replaced 12/19 as was continuing to require straight cath qshift Acute LLE DVT, POA/Anemia - could be provoked by recent hospital stays but also with h/o PEs and nephrotic syndrome putting her at increased risk for recurrence. - Hematemesis --> heparin gtt was on hold x 1 day, then restarted, had recurrent hematemesis on 12/20. Acute hgb drop overnight, STOP heparin gtt now, hold coumadin. PT got 1 dose yesterday. INR=1.0 - Follow H&H - Consult to Heme appreciated - consider IVC filter placement if continued GI bleeding ANA PAULA on CKD stage III, Membranous GN/Nephrotic Syndrome, h/o HD and AIN in 2009, Mild-mod left hydroureteronephrosis, Hyponatremia, Hypokalemia - ANA PAULA resolved. - [place] may be from severe constipation and urinary retention - [place] at baseline, 1.3 - Nephro on board- appreciate, phosphorus replaced and improved today. - avoid nephrotoxins and renally dose all meds - fluid restrict to < 1500 ml/day Hypokalemia- -replace K+ with 20meq IV today, 3.4 - Na+ improving, May consider NaCl- tabs if drops again or is not resolving. Severe ,Mod MR,Mild MS, HTN,CAD,PAF,h/o cerebellar CVA, acute hypoxemic resp failure secondary to acute on chronic diastolic CHF - Not on AC on admission likely due to h/o GI bleeding. - In past AVR has been discussed but thought to not be a great candidate given comorbidities - Cont O2 prn - continue diltiazem, statin - restart po lasix as per Nephro - Consult Cardiology- appreciate recs for preop Hypercholesterolemia - continue pravastatin 20 mg by mouth at bedtime. Hypothyroidism - TSH here 6.94 with low FT3 and normal FT4 c/w Euthyroid sick syndrome - continue levothyroxine sodium 75 g by mouth daily. GERD -continue pantoprazole 40 mg IV BID DVT ppx: SCD to rt leg, stop heparin due to acute hgb drop, cont PPI Dispo- Full code- discussed with the pt and son again today, patient alert and oriented and wishes to remain full code. Son, Travis Courtney in agreement with this Disposition: PT/OT makials, From home and lives alone, accepted to [facility], worsened status overnight and need transfer to the unit. Discussion was held with Travis and he was updated on all of the above. His other brother is traveling into town today. Would recommend palliative consult if status changes. . (Kamla Omalley, SANGITA) PA Physician Supervision Note: I interviewed and examined the patient. Discussed with Shaunna Omalley PAC and agree with findings and plan as documented in the note. Any exceptions or clarifications are listed here: None Pt had acute respiratory distress overnight, with hypoxia requiring BiPap, CXR consistent with Herat failure presumed acute on chronic diastolic due to severe . Moved to ICU for further aggressive management of her hypoxia after discussions with pt and son. 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 Macias for disimpaction. - Had hematemesis/coffee ground emesis on 12/17, heparin gtt(for acute DVT) held, then restarted - With h/o recent GI bleed on previous admission - EGD completed on 12/17 showing LA Grade C reflux esophagitis, hiatal hernia and few gastric polyps. - ERCP completed on 12/22 with gallstone removal-sphincterotomy, jaundice improving Elevated bilirubin Completed EUS/ERCP 12/[address] Fischer. - cefoxitime d/t pts allergies to will cover for cholecystitis - attempt a 10 day course Urinary retention secondary to constipation-pt cut her Sweet with scissors with episode of delirium-> retention resolved with Sweet replaced 12/19 Acute LLE DVT, POA/Anemia, significant anemia, consult for IVC filter ANA PAULA on CKD stage III, ANA PAULA resolved. - Nephrology hhelping to manage electrolytes and fluid balance Dispo- Full code PT's son, Travis, and my PA Shaunna, discussed if he would want aggressive measures taken if the pt was diagnosed with something like a colon cancer, and he said no, that he would not be agreeable to surger, chemo, radiation, or other extensive workup. This was discussed with Dr. Henderson as well , and he agrees no follow up in the office necessary if the pt and family wouldn 't pursue aggressive measures. (Pool Jarvis M.D.)
--- NOTE | 2016-12-24 10:15 | Gastroenterology Progress Note ---
Progress Note Date of Service: Dec 24, 2016 Subjective Pt evaluation today including: conversation w/ patient, physical exam, chart review, lab review, review of studies, review of inpatient medication list CC f/u CBD stones, constipation, esophagitis HPI Pt denies abd pain. Per chart no BMS for 2 days. Noted drop in Hgb from 8 to 6. Developed pulmonary edema in the last 24 hours and transferred to ICU. Review of Systems Respiratory: + shortness of breath Cardiac: No chest pain Medications Current Inpatient Medications Medications (Trade) Dose Ordered Sig/Phillip Route Start Time Stop Time Status Last Admin Dose Admin Docusate Sodium (coLACE CAP) 100 mg BID PO 12/14/16 20:00 01/13/17 20:59 12/23/16 20:07 100 MG Nystatin (Mycostatin Susp) 5 ml QID PO 12/14/16 19:00 12/24/16 18:59 12/23/16 20:07 5 ML Mupirocin (Bactroban 2% Oint) 1 appln DAILY EXT 12/15/16 08:00 01/14/17 07:59 12/23/16 09:19 1 APPLN Polyethylene (Miralax Powder Packet) 17 gm BID PO 12/15/16 20:00 01/14/17 08:59 Future hold 12/23/16 20:07 17 GM Morphine Sulfate (MoRPHine SULFATE INJ) 2 mg Q4H PRN IV 12/15/16 12:00 12/29/16 11:59 Ondansetron HCl (Zofran Inj) 4 mg Q8H PRN IV 12/16/16 19:30 01/15/17 19:29 12/19/16 16:05 4 MG Levothyroxine Sodium (Synthroid Tab) 75 mcg DAILYBB PO 12/18/16 06:30 01/17/17 06:29 12/23/16 06:24 75 MCG Bisacodyl (Dulcolax Supp) 10 mg HS PRN [place] 12/18/16 15:30 01/13/17 16:59 Enteral Nutritional Formula (Boost Plus Vanilla) 1 can TID PO 12/22/16 20:00 01/21/17 19:59 12/23/16 20:07 1 CAN Furosemide 40 mg/ Albumin Human 54 ml @ 54 mls/hr Q4H IV 12/23/16 23:00 12/24/16 22:59 12/24/16 06:17 54 MLS/HR Aztreonam 2000 mg/ Dextrose 110 ml @ 100 mls/hr Q8H IV 12/23/16 22:30 12/30/16 22:29 12/24/16 06:46 100 MLS/HR Clindamycin Phosphate 900 mg/ Dextrose 106 ml @ 100 mls/hr Q8H IV 12/24/16 02:00 12/31/16 01:59 12/24/16 08:31 100 MLS/HR Ipratropium [place] (Atrovent 0.02% 0.5MG/2.5ML Neb) 0.5 mg Q6R INH 12/24/16 03:00 01/23/17 02:59 12/24/16 07:13 0.5 MG Levalbuterol (Xopenex 1.25MG/ 0.5ML Neb) 1.25 mg Q6R INH 12/24/16 03:00 01/23/17 02:59 12/24/16 07:13 1.25 MG Ipratropium [place] (Atrovent 0.02% 0.5MG/2.5ML Neb) 0.5 mg Q2H PRN INH 12/23/16 22:45 01/22/17 22:44 Levalbuterol (Xopenex 1.25MG/ 0.5ML Neb) 1.25 mg Q2H PRN INH 12/23/16 22:45 01/22/17 22:44 Vancomycin HCl (Consult) 1 ea UD PRN N/A 12/24/16 00:30 01/23/17 00:29 Furosemide 40 mg/ Syringe 4 ml @ 4 mls/min TODAY@0800 IV 12/24/16 08:00 12/24/16 11:00 Pantoprazole Sodium 40 mg/ Syringe 10 ml @ 5 mls/min BID IV 12/24/16 09:00 01/23/17 08:14 Lorazepam (Ativan Inj) 0.5 mg Q4H PRN IV 12/24/16 09:15 01/23/17 09:14 Lorazepam (Ativan Inj) 1 mg Q6H PRN IV 12/24/16 09:15 01/23/17 09:14 Objective Vital Signs Date Time Temp Pulse Resp B/P (MAP) Pulse Ox O2 Delivery O2 Flow Rate FiO2 12/24/16 07:58 36.4 90 22 95/62 (73) 88 Non-Rebreather 100 12/24/16 07:13 83 20 94 BiPAP/CPAP 50 12/24/16 03:26 36.4 94 24 148/69 (95) 97 BiPAP 40 12/24/16 03:24 92 95 40 12/24/16 01:59 98 96 50 12/24/16 01:58 98 20 96 BiPAP/CPAP 50 12/24/16 00:46 95 97 50 12/24/16 00:20 36.9 100 24 154/90 (111) 93 High Flow Oxygen 50.0 97 12/23/16 23:42 36.7 100 28 146/81 (102) 92 Non-Rebreather 15.0 12/23/16 21:30 100 32 126/68 (87) 89 15.0 12/23/16 16:17 Nasal Cannula 4.0 12/23/16 14:47 36.4 99 18 150/87 (108) 94 Nasal Cannula 2.0 12/23/16 12:20 96 Nasal Cannula 2.0 12/23/16 12:00 99 Nasal Cannula 3.0 12/23/16 11:48 36.2 102 20 140/76 (97) 99 Nasal Cannula 4.0 Physical Exam General Appearance: WD/WN, no apparent distress Respiratory/Chest: normal breath sounds, + pertinent finding (some respiratory distress) Cardiovascular: no murmur Abdomen: normal bowel sounds, non tender, soft, no organomegaly, + distended ( moderately distended and tympanitic) Laboratory Results Last 24 Hours Test 12/23/16 10:57 12/23/16 11:38 12/23/16 15:44 12/23/16 16:45 White Blood Count 12.09 K/uL Red Blood Count 2.82 M/uL Hemoglobin 8.3 g/dL Hematocrit 25.8 % Mean Corpuscular Volume 91.5 fL Mean Corpuscular Hemoglobin 29.4 pg Mean Corpuscular Hemoglobin Concent 32.2 g/dl RDW Standard Deviation 48.4 fL RDW Coefficient of Variation 14.5 % Platelet Count 128 K/uL Mean Platelet Volume 9.9 fL Prothrombin Time 10.3 SECONDS Prothromb Time International Ratio 1.0 Bedside Glucose 127 mg/dl 237 mg/dl Activated Partial Thromboplast Time 31.6 SECONDS Partial Thromboplastin Ratio 1.2 Test 12/23/16 19:38 12/23/16 22:36 12/23/16 23:17 12/24/16 01:04 Bedside Glucose 249 mg/dl Blood Gas Sample Site R Radial Bedside Blood Gas pH (LAB) 7.44 Bedside Blood Gas pCO2 (LAB) 30 mmHg Bedside Blood Gas pO2 (LAB) 60 mmHg Bedside Blood Gas HCO3 (LAB) 20 meq/L Bedside Blood Gas Total CO2 21 mEq/l Bedside Blood Gas Base Excess (LAB) -4.0 meq/L Bedside Blood Gas O2 Saturation 92.0 % Melecio Test Pass Oxygen Delivery Device NonRb Mask Bedside FiO2 100 % White Blood Count 15.16 K/uL Red Blood Count 2.65 M/uL Hemoglobin 8.0 g/dL Hematocrit 24.4 % Mean Corpuscular Volume 92.1 fL Mean Corpuscular Hemoglobin 30.2 pg Mean Corpuscular Hemoglobin Concent 32.8 g/dl Platelet Count 150 K/uL Mean Platelet Volume 10.6 fL RDW Standard Deviation 49.1 fL RDW Coefficient of Variation 14.7 % Nucleated RBC Absolute Count (auto) 0.02 K/uL Neutrophils % (Manual) 84.5 % Lymphocytes % (Manual) 7.8 % Monocytes % (Manual) 1.7 % Metamyelocytes % 1.7 % Myelocytes % 4.3 % Nucleated Red Blood Cells % 0.1 % Neutrophils # (Manual) 12.81 K/uL Total Absolute Neutrophils 12.81 K/uL Lymphocytes # (Manual) 1.18 K/uL Total Absolute Lymphocytes 1.18 K/uL Monocytes # (Manual) 0.26 K/uL Metamyelocytes # 0.26 K/uL Myelocytes # 0.65 K/uL Echinocytes 1+ Sodium Level 134 mmol/L Potassium Level mmol/L 3.9 mmol/L Chloride Level 100 mmol/L Carbon Dioxide Level 22 mmol/L Anion Gap 12.0 mmol/L Blood Urea Nitrogen 22 mg/dl Creatinine 1.50 mg/dl Est Creatinine Clear Calc Drug Dose 22.3 ml/min Estimated GFR () 35.7 Estimated GFR (Non- 30.8 BUN/Creatinine Ratio 14.6 Random Glucose 204 mg/dl Calcium Level 7.3 mg/dl Magnesium Level mg/dl 2.0 mg/dl Total Bilirubin 2.7 mg/dl Direct Bilirubin mg/dl 1.9 mg/dl Aspartate Amino Transf (AST/SGOT) U/L 73 U/L Alanine Aminotransferase (ALT/SGPT) 78 U/L Alkaline Phosphatase 547 U/L Total Protein 4.9 gm/dl Albumin 1.7 gm/dl Activated Partial Thromboplast Time 80.0 SECONDS Partial Thromboplastin Ratio 3.1 Test 12/24/16 05:20 12/24/16 06:55 12/24/16 07:04 12/24/16 08:30 White Blood Count 10.92 K/uL Red Blood Count 2.17 M/uL Hemoglobin 6.2 g/dL 6.1 g/dL Hematocrit 19.5 % 18.1 % Mean Corpuscular Volume 89.9 fL Mean Corpuscular Hemoglobin 28.6 pg Mean Corpuscular Hemoglobin Concent 31.8 g/dl Platelet Count 92 K/uL Mean Platelet Volume 10.2 fL Neutrophils (%) (Auto) 78.4 % Lymphocytes (%) (Auto) 10.6 % Monocytes (%) (Auto) 7.8 % Eosinophils (%) (Auto) 0.2 % Basophils (%) (Auto) 0.1 % Neutrophils # (Auto) 8.56 K/uL Lymphocytes # (Auto) 1.16 K/uL Monocytes # (Auto) 0.85 K/uL Eosinophils # (Auto) 0.02 K/uL Basophils # (Auto) 0.01 K/uL RDW Standard Deviation 48.1 fL RDW Coefficient of Variation 14.4 % Immature Granulocyte % (Auto) 2.9 % Immature Granulocyte # (Auto) 0.32 K/uL Toxic Granulation 1+ Platelet Estimate DECREASED Prothrombin Time 10.4 SECONDS Prothromb Time International Ratio 1.0 Activated Partial Thromboplast Time 69.5 SECONDS 57.8 SECONDS Partial Thromboplastin Ratio 2.7 2.2 Sodium Level 134 mmol/L Potassium Level 3.4 mmol/L Chloride Level 101 mmol/L Carbon Dioxide Level 22 mmol/L Anion Gap 11.0 mmol/L Blood Urea Nitrogen 22 mg/dl Creatinine 1.30 mg/dl Est Creatinine Clear Calc Drug Dose 25.7 ml/min Estimated GFR () 42.4 Estimated GFR (Non- 36.6 BUN/Creatinine Ratio 17.2 Random Glucose 194 mg/dl Calcium Level 7.0 mg/dl Phosphorus Level 2.3 mg/dl Total Bilirubin 2.2 mg/dl Aspartate Amino Transf (AST/SGOT) 78 U/L Alanine Aminotransferase (ALT/SGPT) 68 U/L Alkaline Phosphatase 414 U/L Total Protein 4.5 gm/dl Albumin 1.9 gm/dl Globulin 2.6 gm/dl Albumin/Globulin Ratio 0.7 Bedside Glucose 198 mg/dl Assessment and Plan CBD stones--stable post ERCP with removal 12/22/16 Esophagitis--continue protonix obstipation--recommend Miralax for maintenance and when acute issues of today resolved recommend increase Miralax to tid and larger amounts as needed. elevated LFTS from stones ---improving anemia--large drop this am but no evidence of GI bleeding (no black nor bloody stools) so discussed with Dr Cardoso the marble rubber regarding I recommend A/P CT to rule out retroperitoneal bleed secondary to the anticoagulation she has been on for DVT. DR Cardoso states she will order when patient stable for transport. Follow H and H.
[2016-12-24] MEDS ORDERED: AZTREONAM CONSULT ACTIVE PRN ×2 (10:45)
[2016-12-24] MEDS: PANTOprazole INJ 40 MG in SYRINGE 0 ML IV SCH ×2 (11:28→21:46)
--- NOTE | 2016-12-24 11:36 | Nephrology Progress Note ---
Nephrology Progress Note Date of Service Dec 24, 2016. Chief Complaint ANA PAULA Subjective Anusha was seen and evaluated in the ICU this morning. Case was discussed with Dr. Montez and Dr. Henderson. ERCP completed yesterday. Unfortunately, overnight Anusha developed worsening respiratory status with progressive acute hypoxic respiratory failure. CXR consistent with acute pulmonary edema. Her H/H dropped overnight. She has been started on BIPAP. She is tolerating the treatment well. Hu is draining blood tinged urine. She has not had any melena or hematochezia. She is generally weak. Dr. Jarvis reportedly had a long conversation with family overnight into this morning. Review of Systems A complete review of systems was performed. Pertinent positives are noted above. All other systems are negative. Vital Signs Last 8 Hrs Date Time Temp Pulse Resp B/P (MAP) Pulse Ox O2 Delivery O2 Flow Rate FiO2 12/24/16 07:58 36.4 90 22 95/62 (73) 88 Non-Rebreather 100 12/24/16 07:13 83 20 94 BiPAP/CPAP 50 12/24/16 03:26 36.4 94 24 148/69 (95) 97 BiPAP 40 12/24/16 03:24 92 95 40 Last Recorded Weight Weight (Kilograms): 65.400 Physical Exam General Appearance: WD/WN, + mild distress Head: normocephalic, atraumatic Eyes: normal inspection, sclerae normal ENT: + pertinent finding (BIPAP masl) Neck: supple, + JVD (Increased JVP) Respiratory/Chest: no respiratory distress, no accessory muscle use Cardiovascular: regular rate, rhythm, no gallop Abdomen/GI: non tender, soft, + distended Genitourinary - Female: + pertinent finding (Hu draining blood tinged urine) Extremities/Musculoskelatal: + pedal edema (generalized edema) Neurologic/Psych: alert, + pertinent finding (generalized weakness) Family History Heart disease Social History Drug Use: none Marital Status: Housing Status: lives with family 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 Laboratory Results Past 24 Hours 12/23/16 23:17 Red Blood Count 2.65, Mean Corpuscular Volume 92.1, Mean Corpuscular Hemoglobin 30.2, Mean Corpuscular Hemoglobin Concent 32.8, Mean Platelet Volume 10.6 12/24/16 05:20 Red Blood Count 2.17, Mean Corpuscular Volume 89.9, Mean Corpuscular Hemoglobin 28.6, Mean Corpuscular Hemoglobin Concent 31.8, Mean Platelet Volume 10.2, Neutrophils (%) (Auto) 78.4, Lymphocytes (%) (Auto) 10.6, Monocytes (%) (Auto) 7.8, Eosinophils (%) (Auto) 0.2, Basophils (%) (Auto) 0.1, Neutrophils # (Auto) 8.56, Lymphocytes # (Auto) 1.16, Monocytes # (Auto) 0.85, Eosinophils # (Auto) 0.02, Basophils # (Auto) 0.01 12/24/16 06:55 12/23/16 23:17 12/24/16 01:04 12/24/16 05:20 Test 12/23/16 11:38 12/23/16 15:44 12/23/16 16:45 12/23/16 19:38 Bedside Glucose 127 mg/dl (70-90) 237 mg/dl (70-90) 249 mg/dl (70-90) Activated Partial Thromboplast Time 31.6 SECONDS (21.0-31.0) Partial Thromboplastin Ratio 1.2 Test 12/23/16 22:36 12/23/16 23:17 12/24/16 01:04 12/24/16 05:20 Blood Gas Sample Site R Radial Bedside Blood Gas pH (LAB) 7.44 (7.35-7.45) Bedside Blood Gas pCO2 (LAB) 30 mmHg (35-46) Bedside Blood Gas pO2 (LAB) 60 mmHg (80-95) Bedside Blood Gas HCO3 (LAB) 20 meq/L (19-24) Bedside Blood Gas Total CO2 21 mEq/l (24-31) Bedside Blood Gas Base Excess (LAB) -4.0 meq/L (-9-1.8) Bedside Blood Gas O2 Saturation 92.0 % (90-95) Melecio Test Pass Oxygen Delivery Device NonRb Mask Bedside FiO2 100 % White Blood Count 15.16 K/uL (4.8-10.8) 10.92 K/uL (4.8-10.8) Red Blood Count 2.65 M/uL (4.2-5.4) 2.17 M/uL (4.2-5.4) Hemoglobin 8.0 g/dL (12.0-16.0) 6.2 g/dL (12.0-16.0) Hematocrit 24.4 % (37-47) 19.5 % (37-47) Mean Corpuscular Volume 92.1 fL (80-100) 89.9 fL (80-100) Mean Corpuscular Hemoglobin 30.2 pg (25-34) 28.6 pg (25-34) Mean Corpuscular Hemoglobin Concent 32.8 g/dl (32-36) 31.8 g/dl (32-36) Platelet Count 150 K/uL (130-400) 92 K/uL (130-400) Mean Platelet Volume 10.6 fL (7.4-10.4) 10.2 fL (7.4-10.4) RDW Standard Deviation 49.1 fL (36.4-46.3) 48.1 fL (36.4-46.3) RDW Coefficient of Variation 14.7 % (11.5-14.5) 14.4 % (11.5-14.5) Nucleated RBC Absolute Count (auto) 0.02 K/uL (0-0) Neutrophils % (Manual) 84.5 % Lymphocytes % (Manual) 7.8 % Monocytes % (Manual) 1.7 % Metamyelocytes % 1.7 % Myelocytes % 4.3 % Nucleated Red Blood Cells % 0.1 % Neutrophils # (Manual) 12.81 K/uL (1.4-6.5) Total Absolute Neutrophils 12.81 K/uL (1.4-6.5) Lymphocytes # (Manual) 1.18 K/uL (1.2-3.4) Total Absolute Lymphocytes 1.18 K/uL (1.2-3.4) Monocytes # (Manual) 0.26 K/uL (0.11-0.59) Metamyelocytes # 0.26 K/uL (0-0) Myelocytes # 0.65 K/uL (0-0) Echinocytes 1+ Anion Gap 12.0 mmol/L (3-11) 11.0 mmol/L (3-11) Est Creatinine Clear Calc Drug Dose 22.3 ml/min 25.7 ml/min Estimated GFR () 35.7 42.4 Estimated GFR (Non- 30.8 36.6 BUN/Creatinine Ratio 14.6 (10-20) 17.2 (10-20) Calcium Level 7.3 mg/dl (8.5-10.1) 7.0 mg/dl (8.5-10.1) Magnesium Level mg/dl (1.8-2.4) 2.0 mg/dl (1.8-2.4) Total Bilirubin 2.7 mg/dl (0.2-1) 2.2 mg/dl (0.2-1) Direct Bilirubin mg/dl (0-0.2) 1.9 mg/dl (0-0.2) Aspartate Amino Transf (AST/SGOT) U/L (15-37) 73 U/L (15-37) 78 U/L (15-37) Alanine Aminotransferase (ALT/SGPT) 78 U/L (12-78) 68 U/L (12-78) Alkaline Phosphatase 547 U/L (45-117) 414 U/L (45-117) Total Protein 4.9 gm/dl (6.4-8.2) 4.5 gm/dl (6.4-8.2) Albumin 1.7 gm/dl (3.4-5.0) 1.9 gm/dl (3.4-5.0) Activated Partial Thromboplast Time 80.0 SECONDS (21.0-31.0) 69.5 SECONDS (21.0-31.0) Partial Thromboplastin Ratio 3.1 2.7 Neutrophils (%) (Auto) 78.4 % Lymphocytes (%) (Auto) 10.6 % Monocytes (%) (Auto) 7.8 % Eosinophils (%) (Auto) 0.2 % Basophils (%) (Auto) 0.1 % Neutrophils # (Auto) 8.56 K/uL (1.4-6.5) Lymphocytes # (Auto) 1.16 K/uL (1.2-3.4) Monocytes # (Auto) 0.85 K/uL (0.11-0.59) Eosinophils # (Auto) 0.02 K/uL (0-0.5) Basophils # (Auto) 0.01 K/uL (0-0.2) Immature Granulocyte % (Auto) 2.9 % Immature Granulocyte # (Auto) 0.32 K/uL (0.00-0.02) Toxic Granulation 1+ Platelet Estimate DECREASED Prothrombin Time 10.4 SECONDS (9.0-12.0) Prothromb Time International Ratio 1.0 (0.9-1.1) Phosphorus Level 2.3 mg/dl (2.5-4.9) Globulin 2.6 gm/dl (2.5-4.0) Albumin/Globulin Ratio 0.7 (0.9-2) Test 12/24/16 07:04 12/24/16 08:30 Bedside Glucose 198 mg/dl (70-90) Activated Partial Thromboplast Time 57.8 SECONDS (21.0-31.0) Partial Thromboplastin Ratio 2.2 Allergies Coded Allergies: Doxycycline (Verified Allergy, Intermediate, RASH, 12/21/16) Trimethoprim (Verified Allergy, Intermediate, RASH, 12/21/16) Adhesives (Verified Allergy, Unknown, HAD RXN TO H[employer] PATCHES, ) Amoxicillin (Verified Allergy, Unknown, RASH, 12/21/16) Atorvastatin (Verified Allergy, Unknown, UNKNOWN, 12/21/16) Carbamazepine (Verified Allergy, Unknown, 12/21/16) Hydantoins (Verified Allergy, Unknown, 12/21/16) Levofloxacin (Verified Allergy, Unknown, UNKNOWN, 12/21/16) Penicillins (Verified Allergy, Unknown, AMOXIL,HAS TOLERATED CEPHS, ) has tolerated cefepime and ceftriaxone on previous admissions Phenytoin (Verified Allergy, Unknown, 12/21/16) Sulfamethoxazole w/Trimethoprim (Unverified Allergy, Unknown, VASCULITIS, 12/21/16) Medications Current Inpatient Medications Medications (Trade) Dose Ordered Sig/Phillip Route Start Time Stop Time Status Last Admin Dose Admin Docusate Sodium (coLACE CAP) 100 mg BID PO 12/14/16 20:00 01/13/17 20:59 12/23/16 20:07 100 MG Nystatin (Mycostatin Susp) 5 ml QID PO 12/14/16 19:00 12/24/16 18:59 12/23/16 20:07 5 ML Mupirocin (Bactroban 2% Oint) 1 appln DAILY EXT 12/15/16 08:00 01/14/17 07:59 12/23/16 09:19 1 APPLN Polyethylene (Miralax Powder Packet) 17 gm BID PO 12/15/16 20:00 01/14/17 08:59 Future hold 12/23/16 20:07 17 GM Morphine Sulfate (MoRPHine SULFATE INJ) 2 mg Q4H PRN IV 12/15/16 12:00 12/29/16 11:59 Ondansetron HCl (Zofran Inj) 4 mg Q8H PRN IV 12/16/16 19:30 01/15/17 19:29 12/19/16 16:05 4 MG Levothyroxine Sodium (Synthroid Tab) 75 mcg DAILYBB PO 12/18/16 06:30 01/17/17 06:29 12/23/16 06:24 75 MCG Bisacodyl (Dulcolax Supp) 10 mg HS PRN [place] 12/18/16 15:30 01/13/17 16:59 Enteral Nutritional Formula (Boost Plus Vanilla) 1 can TID PO 12/22/16 20:00 01/21/17 19:59 12/23/16 20:07 1 CAN Furosemide 40 mg/ Albumin Human 54 ml @ 54 mls/hr Q4H IV 12/23/16 23:00 12/24/16 22:59 12/24/16 06:17 54 MLS/HR Clindamycin Phosphate 900 mg/ Dextrose 106 ml @ 100 mls/hr Q8H IV 12/24/16 02:00 12/31/16 01:59 12/24/16 08:31 100 MLS/HR Ipratropium [place] (Atrovent 0.02% 0.5MG/2.5ML Neb) 0.5 mg Q6R INH 12/24/16 03:00 01/23/17 02:59 12/24/16 07:13 0.5 MG Levalbuterol (Xopenex 1.25MG/ 0.5ML Neb) 1.25 mg Q6R INH 12/24/16 03:00 01/23/17 02:59 12/24/16 07:13 1.25 MG Ipratropium [place] (Atrovent 0.02% 0.5MG/2.5ML Neb) 0.5 mg Q2H PRN INH 12/23/16 22:45 01/22/17 22:44 Levalbuterol (Xopenex 1.25MG/ 0.5ML Neb) 1.25 mg Q2H PRN INH 12/23/16 22:45 01/22/17 22:44 Vancomycin HCl (Consult) 1 ea UD PRN N/A 12/24/16 00:30 01/23/17 00:29 Pantoprazole Sodium 40 mg/ Syringe 10 ml @ 5 mls/min BID IV 12/24/16 09:00 01/23/17 08:14 Lorazepam (Ativan Inj) 0.5 mg Q4H PRN IV 12/24/16 09:15 01/23/17 09:14 Lorazepam (Ativan Inj) 1 mg Q6H PRN IV 12/24/16 09:15 01/23/17 09:14 Aztreonam 1000 mg/ Dextrose 110 ml @ 110 mls/hr DAILY@,, IV 12/24/16 14:00 12/30/16 13:59 Aztreonam (Consult) 1 ea UD PRN N/A 12/24/16 10:45 01/23/17 10:44 Impression (1) Hyponatremia (2) ANA PAULA (acute kidney injury) (3) Hypertension Nos (4) Anemia (5) Obstipation Anusha is a 86-year-old female admitted to the hospital with constipation and fecal impaction. Anusha unfortunately developed ANA PAULA consistent with ATN. Creatinine peaked at 2.4 mg/dL on December 18. Kidney function had recovered to baseline. Creatinine increased slightly in past 24 hour in response to prerenal state and acute anemia. Anusha developed hyponatremia attributed to poor oral intake and nutrition. She does have evidence of TBW in the form of dependent edema associated with hypoalbuminemia. Urine sodium and potassium both low consistent with prerenal/ sodium avid state. Colonoscopy was poor prep but did not identify any pathology. She had an ERCP yesterday for LFT abnormalities. Replace potassium. Electrolytes will need to be monitored closely. Recommendations CKD/ANA PAULA: -- Creatinine remains at baseline -- Monitor I/O's and metabolic profile closely -- Medications currently appropriately dosed for renal function -- Hemodynamic support as needed with MAP goal >65 Anemia: -- CT chest, abdomen and pelvis pending -- Too acute to be explained by gross hematuria -- PRBC transfusion support has been ordered -- Monitor serial H/H Pulmonary edema/acute CHF: -- TTE pending -- Furosemide 40 mg IV now and additional lasix with PRBC Hypokalemia: -- 80 mEq this morning -- Repeat metabolic profile this afternoon Hypophosphatemia: -- Repeat this afternoon and replete as needed Hyponatremia: -- Hypervolemic at this time -- Complicated by increased ADH state and will need to be monitored closely -- Poor solute state associated with malnutrition Malnutrition: -- Patient is hypoalbuminemic and nutritional support will need to be considered early
[2016-12-24] MEDS ORDERED: SODIUM PHOSPHATE 3 MMOL/1 ML INFUSION IV STA (11:40)
[2016-12-24 11:41] LABS: IPAP 12; ISTAT ARTERIAL BLOOD GAS HCO3 22 meq/L (19-24); ISTAT ARTERIAL BLOOD GAS PCO2 29 mmHg (35-46); ISTAT ARTERIAL BLOOD GAS PO2 87 mmHg (80-95); ISTAT ARTERIAL BLOOD GAS pH 7.48 (7.35-7.45); ISTAT CARBON DIOXIDE 22 mEq/l (24-31); ISTAT DELIVERY SYSTEM BIPAP; ISTAT FIO2 50 %; ISTAT RATE 12; ISTAT SITE L Brachial
[2016-12-24 11:59] LABS: HEMATOCRIT 18.9 % (37-47)
[2016-12-24] MEDS ORDERED: SODIUM PHOSPHATE INJ 15 MMOL in SODIUM CHLORIDE 0.9% 250ML 250 ML IV ONE (12:00)
[2016-12-24] MEDS: MUPIROCIN 2% OINT 22 GM TUBE EXT SCH (12:35)
[2016-12-24] MEDS: POTASSIUM CHLR 10 MEQ / WTR 10 MEQ in PREMIXED WATER 100 ML IV SCH ×9 (12:35→20:08)
--- NOTE | 2016-12-24 14:06 | CRITICAL CARE CONSULTATION ---
DATE OF CONSULTATION: 12/24/2016 CHIEF COMPLAINT: Hypoxia. HISTORY OF PRESENT ILLNESS: The patient is an 86-year-old female with a complicated past medical history, who presented to the Emergency Department on December 14 secondary to constipation. She was found to have a fecal impaction as well as choledocholithiasis and a mild left hydroureteronephrosis. She was also found to have a left lower extremity DVT and was started on a heparin infusion. She was admitted to the hospital and has been seen by multiple consulting services such as GI, pulmonary, hematology, cardiology and nephrology. She has a history of severe aortic stenosis and recent admissions to the hospital for hemoptysis and acute respiratory failure. There was some concern on her last admission that she might have vasculitis and she was treated with steroids. Nonetheless, on this admission, she had an episode of coffee-ground emesis and underwent upper endoscopy on December 17 showing esophagitis. Attempts were made to relieve her constipation without any procedures; however, she required colonoscopy on December 21 for disimpaction. This appears to have been a therapeutic and not a diagnostic colonoscopy. She also underwent EUS/ERCP on December 22. Overnight last night, she developed increasing oxygen requirements and was given albumin and Lasix. She was placed on BiPAP 14/750%. She was found to have a hemoglobin around 6, which is down compared to yesterday. There have been no signs of active bleeding. Orders were placed to transfuse packed red blood cells and she was transferred to the intensive care unit for further care. Her heparin infusion has been stopped. Due to the BiPAP it is difficult for me to communicate with her. She denies pain or nausea. She has not had a bowel movement in at least 2 days from what I can tell. She feels like her shortness of breath is getting better. She denies noting any bleeding anywhere. PAST MEDICAL HISTORY: Acute respiratory failure, possibly secondary to diffuse alveolar hemorrhage or vasculitis, atrial fibrillation, aortic stenosis, chronic kidney disease, hiatal hernia, DVT, PE x2, diastolic heart failure, acute interstitial nephritis requiring hemodialysis in 2008, hypertension, nephrotic syndrome, osteoporosis, TIA, cerebellar CVA, seizure, hypothyroidism, moderate MR. PAST SURGICAL HISTORY: Status post bilateral hip replacements. ALLERGIES: ADHESIVES, AMOXICILLIN, ATORVASTATIN, CARBAMAZEPINE, DOXYCYCLINE, HYDANTOIN, LEVAQUIN, PENICILLIN, PHENYTOIN, SULFAMETHOXAZOLE WITH TRIMETHOPRIM, TRIMETHOPRIM. SOCIAL HISTORY: The patient is and was living at home prior to this admission. FAMILY HISTORY: Noncontributory due to her age. REVIEW OF SYSTEMS: It is not obtainable secondary to the BiPAP mask and there is no family at the bedside. PHYSICAL EXAMINATION: VITAL SIGNS: Temperature 36.4, heart rate 90, respiratory rate 22, blood pressure 95/62, oxygen saturation 100% on BiPAP 12/5, 50%. HEENT: Pupils are equally round and reactive to light. Oral mucosa is difficult to see through the BiPAP mask. NECK: No adenopathy. LUNGS: Bilateral rales. No rhonchi or wheezes. HEART: Irregular with a 2/6 murmur heard best at the right sternal border. CHEST: Symmetric expansion. ABDOMEN: Mildly distended, firm. Mildly diffusely tender, active bowel sounds. EXTREMITIES: Edema of the left lower extremity 2+,1+ of the right. Hand and feet are warm. Radial and dorsalis pedis pulses are 1+. NEUROLOGIC: She will answer questions and follow simple commands. She moves all 4 extremities equally. LABORATORY DATA: White blood cell count 10.92, hemoglobin 6.2, follow up 6.3; hematocrit 19.5, platelets 92. Sodium 134, potassium 3.4, chloride 101, CO2 of 22, BUN 22, creatinine 1.3, blood sugar 194, calcium 7, phosphorus 2.3, total bilirubin 2.2, AST 78. Albumin 1.9. PTT 57.8, pH 7.48, pCO2 of 29, pO2 of 87 and HCO3 of 22. Chest x-ray from this morning was reviewed and shows diffuse bilateral interstitial infiltrates consistent with pulmonary edema. PRESENT MEDICATIONS: Aztreonam, Dulcolax, clindamycin, Colace, Boost, Lasix, Atrovent, Xopenex, Synthroid, morphine, Bactroban, Nystatin, Zofran, Protonix, MiraLax, potassium, vancomycin. IMAGING: EKG shows normal sinus rhythm with nonspecific ST-T wave changes. IMPRESSION: 1. Acute hypoxemic respiratory failure, presently doing well on BiPAP at 50%. She has what appears to be pulmonary edema in the face of rather severe anemia. This in combination could be contributing to her respiratory failure. She could have aspirated and be developing pneumonia for which antibiotics were started last evening or early this morning. She has not had any hemoptysis to make me think that this is associated with an alveolar hemorrhage. 2. Acute anemia, unclear whether or not this is secondary to blood loss. She has been on a heparin infusion which was stopped. No hemoptysis and no signs of gastrointestinal bleeding at this point. 3. Left lower extremity deep venous thrombosis diagnosed on this admission. History of pulmonary embolism as well and presently off heparin. 4. Severe aortic stenosis with preserved ejection fraction from an echocardiogram earlier this year. Followup echocardiogram is pending. 5. Fecal impaction and constipation, status post colonoscopy and disimpaction. She remains on a bowel regimen. 6. Status post ERCP, bilirubin and transaminases are improving. 7. History of gastrointestinal bleed, status post upper endoscopy, she has esophagitis. 8. Acute kidney injury on chronic kidney disease, being seen by the nephrology service and creatinine has been improving. She may be volume overloaded at this point. 9. History of hypothyroidism. 10. History of hypertension. 11. History of nephrotic syndrome. 12. History of atrial fibrillation per records. PLAN: NEUROLOGIC: Avoid sedative medications and treat pain conservatively. She has morphine ordered for pain. PULMONARY: Continue BiPAP and diuresis. I do not think she needs albumin and Lasix every 4 hours. Watch for any signs of hemoptysis or decompensation. Continue bronchodilators. At this point, I would not give her steroids. CARDIOVASCULAR: Rule out myocardial infarction and await echocardiogram result. Watch volume status carefully, particularly with her aortic stenosis. INFECTIOUS DISEASE: Continue aztreonam, clindamycin and vancomycin for possible pneumonia. Consider procalcitonin. She is not producing any sputum to get a sputum culture. RENAL: As above. Diurese and replete electrolytes. Avoid nephrotoxins and appropriately dose medications with the assistance of pharmacy. HEME: Hold heparin infusion. I have consulted Dr. Hammond for an IVC filter. Continue serial blood counts and consider CT of the chest, abdomen and pelvis to look for any source of bleeding, particularly retroperitoneal hematoma. I would like to have her blood at least hanging before she is transported anywhere as she is hemodynamically stable presently. GASTROINTESTINAL: Continue Protonix b.i.d. as well as bowel regimen. I think she can have a full liquid diet if she is able to tolerate some time off of the BiPAP. I discussed her care with her son who is at the bedside. Questions were answered. She remains full code status. Critical care time 1 hour.
--- NOTE | 2016-12-24 14:17 | Pharmacy Progress Note ---
Pharmacy Antibiotic Consult Date of Service: Dec 24, 2016. Pharmacy Dosing Scope Pharmacy is consulted to initiate Vancomycin IV dosing therapy, order appropriate labs and adjust drug dose/frequency. Subjective The patient is a 86 year old female admitted on Dec 14, 2016 at 16:49. Objective Height (Feet): 5 Height (Inches): 4.00 Weight (Kilograms): 65.400 Lab Results (24hrs): Micro Results: Item Value Date Time MRSA DNA Surveillance Screen - Final Complete 12/24/16 0916 Nasal Specimen Positive for MRSA by DNA Probe Assessment & Plan Patient transferred to ICU this morning. Abx initiated overnight for possible pna. MRSA nasal swab positive. VANCOMYCIN: * Loading dose: Vancomycin 1350 mg (~25mg/kg) IV X 1 dose * Further dosing will be based upon random vanc levels, in the setting of poor renal function. Based on estimate of patient's p'kinetic parameters, expect that patient's vanc level will be ~therapeutic tomorrow morning. * Goal trough level estimate: between 15 - 20 mcg/mL for pna. * Random level has been ordered for: 12/25/16 with AM labs. Will re-dose when level within or near goal range. Azactam 1gm IV q8h Clindamycin 900mg IV q8h Pharmacy will continue to follow and will adjust dose/frequency as necessary. Thank you
--- NOTE | 2016-12-24 14:36 | Cardiology Follow-Up ---
Subjective Subjective Date of Service: Dec 24, 2016. Pt evaluation today including: conversation w/ patient, physical exam, chart review, lab review, review of studies, review of inpatient medication list Additional Details: Respiratory distress this AM requiring bipap. Started on IV lasix/albumin overnight Hb down to 6 this AM. Problem List Medical Problems: (1) Acute kidney injury Status: Acute (2) Anemia Status: Acute (3) Chronic anemia Status: Acute (4) Colitis Status: Acute (5) Elevated troponin Status: Acute (6) Hypoxia Status: Acute Review of Systems Constitutional: + fatigue, No fever Eyes: No diplopia ENT: No nasal symptoms, No sore throat, No trouble swallowing Respiratory: + shortness of breath Cardiac: No chest pain Abdomen: No pain, No nausea, No vomiting, No diarrhea Neurologic: + weakness, No numbness/tingling Heme: + abnormal bleeding/bruising Endo: + fatigue Skin: No rash Objective Vital Signs Last Vital Signs Documentation Date Time Temp Pulse Resp B/P (MAP) Pulse Ox O2 Delivery O2 Flow Rate FiO2 12/24/16 13:25 37.2 88 24 121/64 94 15.0 12/24/16 12:00 BiPAP 50 Physical Exam: General Appearance: + mild distress, + moderate distress (appears more comfortable on Bipap), + pertinent finding (+jaundice) ENT: + pertinent finding (mask in place) Neck: + JVD Respiratory/Chest: + accessory muscle use, + crackles (at bases bilaterally), + pertinent finding (On nonrebreather @15L, coarse breath sounds in all meyer, worse crackles in the R base, + prolonged expiratory phase) Cardiovascular: regular rate, rhythm, + systolic murmur (2/6 systolic murmur at right upper sternal border), + pertinent finding Abdomen: non tender, soft, + pertinent finding (+hypoactive bowel sounds, ) Extremities: + pertinent finding (2+ to 3+ pitting edema in BLE to knees) Neurologic/Psychiatric: alert, oriented x 3 Skin: + pertinent finding (multiple areas of ecchymosis over BUE.) Lymphatic: no adenopathy Assessment and Plan 1. ADHF/HFpEF- well perfused/congested 2. Severe symptomatic 3. Acute anemia - unclear bleeding source on heparin 4. Acute LE DVT 5. Choledocholithiasis s/p ERCP 6. Obstipation/malnutrition/hypoalbuminemia 7. Acute on chronic kidney disease Suspect acute decompensation/respiratory failure related to ++ fluid balance off diuretics in the setting of new acute anemia Remains hemodynamically stable and well perfused - Agree with continued IV lasix - appropriately diuresing (-700) overshift. Would discontinue additional albumin - Continue to hold diltiazem - Will follow up on repeat Echo - Agree with decision to place IVC filter Will continue to follow. Medications: Current Inpatient Medications Medications (Trade) Dose Ordered Sig/Phillip Route Start Time Stop Time Status Last Admin Dose Admin Docusate Sodium (coLACE CAP) 100 mg BID PO 12/14/16 20:00 01/13/17 20:59 12/23/16 20:07 100 MG Nystatin (Mycostatin Susp) 5 ml QID PO 12/14/16 19:00 12/24/16 18:59 12/23/16 20:07 5 ML Mupirocin (Bactroban 2% Oint) 1 appln DAILY EXT 12/15/16 08:00 01/14/17 07:59 12/24/16 12:35 1 APPLN Polyethylene (Miralax Powder Packet) 17 gm BID PO 12/15/16 20:00 01/14/17 08:59 Future hold 12/23/16 20:07 17 GM Morphine Sulfate (MoRPHine SULFATE INJ) 2 mg Q4H PRN IV 12/15/16 12:00 12/29/16 11:59 Ondansetron HCl (Zofran Inj) 4 mg Q8H PRN IV 12/16/16 19:30 01/15/17 19:29 12/19/16 16:05 4 MG Levothyroxine Sodium (Synthroid Tab) 75 mcg DAILYBB PO 12/18/16 06:30 01/17/17 06:29 12/23/16 06:24 75 MCG Bisacodyl (Dulcolax Supp) 10 mg HS PRN IN 12/18/16 15:30 01/13/17 16:59 Enteral Nutritional Formula (Boost Plus Vanilla) 1 can TID PO 12/22/16 20:00 01/21/17 19:59 12/23/16 20:07 1 CAN Furosemide 40 mg/ Albumin Human 54 ml @ 54 mls/hr Q4H IV 12/23/16 23:00 12/24/16 22:59 12/24/16 06:17 54 MLS/HR Clindamycin Phosphate 900 mg/ Dextrose 106 ml @ 100 mls/hr Q8H IV 12/24/16 02:00 12/31/16 01:59 12/24/16 08:31 100 MLS/HR Ipratropium [place] (Atrovent 0.02% 0.5MG/2.5ML Neb) 0.5 mg Q6R INH 12/24/16 03:00 01/23/17 02:59 12/24/16 07:13 0.5 MG Levalbuterol (Xopenex 1.25MG/ 0.5ML Neb) 1.25 mg Q6R INH 12/24/16 03:00 01/23/17 02:59 12/24/16 07:13 1.25 MG Ipratropium [place] (Atrovent 0.02% 0.5MG/2.5ML Neb) 0.5 mg Q2H PRN INH 12/23/16 22:45 01/22/17 22:44 Levalbuterol (Xopenex 1.25MG/ 0.5ML Neb) 1.25 mg Q2H PRN INH 12/23/16 22:45 01/22/17 22:44 Vancomycin HCl (Consult) 1 ea UD PRN N/A 12/24/16 00:30 01/23/17 00:29 Pantoprazole Sodium 40 mg/ Syringe 10 ml @ 5 mls/min BID IV 12/24/16 09:00 01/23/17 08:14 12/24/16 11:28 5 MLS/MIN Aztreonam 1000 mg/ Dextrose 110 ml @ 110 mls/hr DAILY@,, IV 12/24/16 14:00 12/30/16 13:59 Aztreonam (Consult) 1 ea UD PRN N/A 12/24/16 10:45 01/23/17 10:44 Potassium Chloride 10 meq/ Prmx 100 ml @ 100 mls/hr Q1H IV 12/24/16 12:00 12/24/16 15:59 12/24/16 12:35 100 MLS/HR Sodium Phosphate 15 mmol/Sodium Chloride 255 ml @ 100 mls/hr ONE ONCE IV 12/24/16 12:00 12/24/16 14:32 12/24/16 12:35 100 MLS/HR Lab Results: 12/24/16 05:20 Red Blood Count 2.17, Mean Corpuscular Volume 89.9, Mean Corpuscular Hemoglobin 28.6, Mean Corpuscular Hemoglobin Concent 31.8, Mean Platelet Volume 10.2, Neutrophils (%) (Auto) 78.4, Lymphocytes (%) (Auto) 10.6, Monocytes (%) (Auto) 7.8, Eosinophils (%) (Auto) 0.2, Basophils (%) (Auto) 0.1, Neutrophils # (Auto) 8.56, Lymphocytes # (Auto) 1.16, Monocytes # (Auto) 0.85, Eosinophils # (Auto) 0.02, Basophils # (Auto) 0.01 12/24/16 11:46 12/24/16 05:20 Test 12/23/16 23:17 12/24/16 01:04 12/24/16 05:20 12/24/16 08:30 Nucleated RBC Absolute Count (auto) 0.02 K/uL (0-0) Neutrophils % (Manual) 84.5 % Lymphocytes % (Manual) 7.8 % Monocytes % (Manual) 1.7 % Metamyelocytes % 1.7 % Myelocytes % 4.3 % Nucleated Red Blood Cells % 0.1 % Neutrophils # (Manual) 12.81 K/uL (1.4-6.5) Total Absolute Neutrophils 12.81 K/uL (1.4-6.5) Lymphocytes # (Manual) 1.18 K/uL (1.2-3.4) Total Absolute Lymphocytes 1.18 K/uL (1.2-3.4) Monocytes # (Manual) 0.26 K/uL (0.11-0.59) Metamyelocytes # 0.26 K/uL (0-0) Myelocytes # 0.65 K/uL (0-0) Echinocytes 1+ Magnesium Level 2.0 mg/dl (1.8-2.4) Direct Bilirubin 1.9 mg/dl (0-0.2) White Blood Count 10.92 K/uL (4.8-10.8) Red Blood Count 2.17 M/uL (4.2-5.4) Hemoglobin 6.2 g/dL (12.0-16.0) Hematocrit 19.5 % (37-47) Mean Corpuscular Volume 89.9 fL (80-100) Mean Corpuscular Hemoglobin 28.6 pg (25-34) Mean Corpuscular Hemoglobin Concent 31.8 g/dl (32-36) Platelet Count 92 K/uL (130-400) Mean Platelet Volume 10.2 fL (7.4-10.4) Neutrophils (%) (Auto) 78.4 % Lymphocytes (%) (Auto) 10.6 % Monocytes (%) (Auto) 7.8 % Eosinophils (%) (Auto) 0.2 % Basophils (%) (Auto) 0.1 % Neutrophils # (Auto) 8.56 K/uL (1.4-6.5) Lymphocytes # (Auto) 1.16 K/uL (1.2-3.4) Monocytes # (Auto) 0.85 K/uL (0.11-0.59) Eosinophils # (Auto) 0.02 K/uL (0-0.5) Basophils # (Auto) 0.01 K/uL (0-0.2) RDW Standard Deviation 48.1 fL (36.4-46.3) RDW Coefficient of Variation 14.4 % (11.5-14.5) Immature Granulocyte % (Auto) 2.9 % Immature Granulocyte # (Auto) 0.32 K/uL (0.00-0.02) Toxic Granulation 1+ Platelet Estimate DECREASED Prothrombin Time 10.4 SECONDS (9.0-12.0) Prothromb Time International Ratio 1.0 (0.9-1.1) Anion Gap 11.0 mmol/L (3-11) Est Creatinine Clear Calc Drug Dose 25.7 ml/min Estimated GFR () 42.4 Estimated GFR (Non- 36.6 BUN/Creatinine Ratio 17.2 (10-20) Calcium Level 7.0 mg/dl (8.5-10.1) Phosphorus Level 2.3 mg/dl (2.5-4.9) Total Bilirubin 2.2 mg/dl (0.2-1) Aspartate Amino Transf (AST/SGOT) 78 U/L (15-37) Alanine Aminotransferase (ALT/SGPT) 68 U/L (12-78) Alkaline Phosphatase 414 U/L (45-117) Total Protein 4.5 gm/dl (6.4-8.2) Albumin 1.9 gm/dl (3.4-5.0) Globulin 2.6 gm/dl (2.5-4.0) Albumin/Globulin Ratio 0.7 (0.9-2) Activated Partial Thromboplast Time 57.8 SECONDS (21.0-31.0) Partial Thromboplastin Ratio 2.2 Test 12/24/16 11:24 12/24/16 11:29 12/24/16 12:02 Bedside Glucose 188 mg/dl (70-90) Blood Gas Sample Site L Brachial Bedside Blood Gas pH (LAB) 7.48 (7.35-7.45) Bedside Blood Gas pCO2 (LAB) 29 mmHg (35-46) Bedside Blood Gas pO2 (LAB) 87 mmHg (80-95) Bedside Blood Gas HCO3 (LAB) 22 meq/L (19-24) Bedside Blood Gas Total CO2 22 mEq/l (24-31) Bedside Blood Gas Base Excess (LAB) -2.0 meq/L (-9-1.8) Bedside Blood Gas O2 Saturation 97.0 % (90-95) Melecio Test NA Oxygen Delivery Device BIPAP Bedside Oxygen Rate (breaths/min) 12 Bedside FiO2 50 % Blood Gas IPAP 12 Lactic Acid Level 1.6 mmol/L (0.4-2.0) Troponin I 0.145 ng/ml (0-0.045) Pro-B-Type Natriuretic Peptide > 99219 pg/ml (0-1800) Procalcitonin 3.09 ng/ml (0-0.5) Date/Time Source Procedure Growth Status 12/24/16 09:16 Nasal MRSA DNA Surveillance Screen - Final Specimen Positive for MRSA by DNA Probe Complete
[2016-12-24] MEDS ORDERED: NURSING VERBAL MED ORDER ONE ×3 (14:45→20:30)
[2016-12-24] MEDS: AZTREONAM IV 1,000 MG in DEXTROSE 5% 100ML IV SCH ×2 (15:28→21:48)
--- NOTE | 2016-12-24 15:30 | ECHOCARDIOGRAM REPORT ---
*NOTICE TO RECEIVING [employer] This information is strictly Confidential and protected under [place] law. [place] law prohibits you from making any further disclosure of this information unless further disclosure is expressly permitted by the written consent of the person to whom it pertains or is authorized by law. A general authorization for the release of medical or other information is not sufficient for this purpose. Hospital accepts no responsibility if the information is made available to any other person, INCLUDING THE PATIENT. Interpretation Summary * Name: KEMI SULTANA Study Date: 12/24/2016 09:46 AM BP: 95/62 mmHg * Patient Location: .MSICU\S\E108\S\1 HR: 90 * : 1930 (M/d/yyy) Gender: Female Height: 64 in * Age: 86 yrs Ethnicity: [place] Weight: 144 lb * Ordering Physician: Pool Jarvis * Referring Physician: Self, Referred * Performed By: Anum Davis RDCS * * Reason For Study: CHF * BSA: 1.7 m2 * -- Conclusions -- * 1. Normal LV size. Mild-moderate concentric LVH. * 2. Low normal systolic function. LVEF 45-50%. No regional wall motion abnormalities. Grade II diastolic dysfunction. * 3. Normal RV size and function. * 4. Severe calcific aortic stenosis (PV 4.6 m/s, MG 49 mmHg, MANAS 0.66) * 5. Moderate mitral regurgitation. Mild mitral stenosis. * 6. Normal estimated RA and PA pressures. * 7. Compared with prior study on 09/24/2016: No significant change. Procedure Details * A contrast injection of Definity was performed to improve assessment of LV function. * Contrast was injected into an intravenous site in the left arm. * One vial of Definity ultrasound contrast was diluted in normal saline to a total volume of 10 ml. A total of '2' ml of solution was administered during imaging. * Lot # [id number] of Definity utilized for procedure. * Expiration date FEB 26. * The attending nurse who injected the contrast agent was BIBIANA DUENAS RN. Left Ventricle * The left ventricle is grossly normal size. * There is moderate concentric left ventricular hypertrophy. * Ejection Fraction = 45-50%. * No regional wall motion abnormalities noted. Right Ventricle * The right ventricle is grossly normal size. * The right ventricular systolic function is normal as assessed by tricuspid annular plane systolic excursion (TAPSE) (normal >1.5 cm). Atria * The left atrium is mildly dilated. * Right atrial size is normal. Mitral Valve * There is mild mitral annular calcification. * The mitral valve leaflets appear thickened, but open well. * There is mild mitral stenosis. * There is moderate mitral regurgitation. Tricuspid Valve * The tricuspid valve is not well visualized, but is grossly normal. * There is no tricuspid stenosis. * There is mild tricuspid regurgitation. * Right ventricular systolic pressure is elevated at 30-40mmHg. Aortic Valve * The aortic valve opens well. * Severe valvular aortic stenosis. * Thickened, calcified, restricted aortic valve * Mild aortic regurgitation. Pulmonic Valve * Trace pulmonic valvular regurgitation. Pericardium/Pleural * There is no pericardial effusion. Great Vessels * There is no evidence of pulmonary hypertension. The PA systolic pressure is less than 36 mmHg. * Normal inferior vena cava size and collapsability with sniff indicates a normal right atrial pressure of 3 mmHg Left Ventricular Diastolic Function * Diastolic dysfunction, Grade II, consistent with elevated left atrial pressure. MMode 2D Measurements and Calculations IVSd 1.5 cm IVSs 1.9 cm LVIDd 4.2 cm LVIDs 3.2 cm LVPWd 1.6 cm LVPWs 2.1 cm IVS/LVPW 0.95 FS 24.2 % EDV(Teich) 80.3 ml ESV(Teich) 41.4 ml EF(Teich) 48.4 % EDV(cubed) 76.1 ml ESV(cubed) 33.2 ml EF(cubed) 56.4 % % IVS thick 25.5 % % LVPW thick 33.3 % LV mass(C)d 271.0 grams LV mass(C)dI 159.3 grams/m\S\2 LV mass(C)s 293.6 grams LV mass(C)sI 172.6 grams/m\S\2 SV(Teich) 38.9 ml SI(Teich) 22.9 ml/m\S\2 SV(cubed) 42.9 ml SI(cubed) 25.2 ml/m\S\2 LA dimension 3.5 cm LVOT diam 2.0 cm LVOT area 3.2 cm\S\2 LVAd ap4 25.9 cm\S\2 LVLd ap4 8.3 cm EDV(MOD-sp4) 71.2 ml EDV(sp4-el) 68.4 ml LVAs ap4 17.8 cm\S\2 LVLs ap4 7.2 cm ESV(MOD-sp4) 40.2 ml ESV(sp4-el) 37.4 ml EF(MOD-sp4) 43.5 % EF(sp4-el) 45.3 % LVAd ap2 31.9 cm\S\2 LVLd ap2 7.9 cm EDV(MOD-sp2) 105.2 ml EDV(sp2-el) 108.9 ml LVAs ap2 22.8 cm\S\2 LVLs ap2 7.2 cm ESV(MOD-sp2) 58.2 ml ESV(sp2-el) 61.0 ml EF(MOD-sp2) 44.7 % EF(sp2-el) 44.0 % LVLd %diff -4.98 % EDV(MOD-bp) 86.9 ml LVLs %diff 1.2 % ESV(MOD-bp) 47.4 ml EF(MOD-bp) 45.4 % SV(MOD-sp4) 31.0 ml SI(MOD-sp4) 18.2 ml/m\S\2 SV(MOD-sp2) 47.0 ml SI(MOD-sp2) 27.6 ml/m\S\2 SV(MOD-bp) 39.4 ml SI(MOD-bp) 23.2 ml/m\S\2 SV(sp4-el) 31.0 ml SI(sp4-el) 18.2 ml/m\S\2 SV(sp2-el) 47.9 ml SI(sp2-el) 28.1 ml/m\S\2 Doppler Measurements and Calculations MV E max timmy 151.2 cm/sec MV P1/2t max timmy 179.2 cm/sec MV P1/2t 77.5 msec MVA(P1/2t) 2.8 cm\S\2 MV dec slope 677.2 cm/sec\S\2 MV dec time 0.23 sec Ao V2 max 438.0 cm/sec Ao max PG 77.0 mmHg Ao max PG (full) 74.4 mmHg Ao V2 mean 305.1 cm/sec Ao mean PG 42.6 mmHg Ao mean PG (full) 41.4 mmHg Ao V2 VTI 99.2 cm MANAS(I,A) 0.66 cm\S\2 MANAS(I,D) 0.66 cm\S\2 MANAS(V,A) 0.58 cm\S\2 MANAS(V,D) 0.58 cm\S\2 AI max itmmy 397.3 cm/sec AI max PG 63.2 mmHg AI dec slope 440.3 cm/sec\S\2 AI P1/2t 264.3 msec LV V1 max PG 2.5 mmHg LV V1 mean PG 1.2 mmHg LV V1 max 79.6 cm/sec LV V1 mean 52.2 cm/sec LV V1 VTI 20.6 cm MR max timmy 602.2 cm/sec MR max PG 145.0 mmHg SV(LVOT) 65.4 ml SI(LVOT) 38.4 ml/m\S\2 TR max timmy 243.6 cm/sec
[2016-12-24 16:18] LABS: HEMATOCRIT 23.8 % (37-47)
--- NOTE | 2016-12-24 16:37 | DIAGNOSTIC IMAGING REPORT ---
CHEST CT WITHOUT CONTRAST CT DOSE: 875.53 mGy.cm HISTORY: Dyspnea hypoxia, history of hemoptysis TECHNIQUE: Multiaxial CT images of the chest were performed without contrast. COMPARISON: 10/06/2016 FINDINGS: Findings consistent with pulmonary edema.. Small bilateral pleural effusions. Mild bibasilar atelectatic change. Moderate abscess chronic change and ectasia thoracic aorta. Moderate cardiac megaly. Air within the biliary ductal system presumably postoperative. IMPRESSION: 1. Pulmonary edema. 2. Small bilateral pleural effusions. 3. Moderate cardiomegaly. Electronically signed by: Kirill Escoto M.D. 12/24/2016 4:36 PM Dictated Date/Time: 12/24/2016 4:33 PM
[2016-12-24 16:41] LABS: BUN/CREATININE RATIO 18.3 (10-20); CALCIUM 7.4 mg/dl (8.5-10.1); CREATININE 1.2 mg/dl (0.60-1.20); POTASSIUM 2.9 mmol/L (3.5-5.1)
--- NOTE | 2016-12-24 16:47 | DIAGNOSTIC IMAGING REPORT ---
CT OF THE ABDOMEN AND PELVIS WITHOUT CONTRAST CLINICAL HISTORY: Anemia. Colitis. Obstipation. Evaluate for retroperitoneal bleed. COMPARISON STUDY: CT of the abdomen and pelvis December 24, 2016 and renal ultrasound December 17, 2016. TECHNIQUE: Axial images of the abdomen and pelvis were obtained without IV contrast. Images were reviewed in the axial, sagittal, and coronal planes. FINDINGS: The chest will be reported separately. Visualized portions of the chest demonstrate small right and trace left pleural effusions. There are extensive airspace opacities with interlobular septal thickening within the lungs. No pneumatosis, free air or portal venous gas is present. There is extensive subcutaneous edema consistent with generalized anasarca. Unenhanced images of the liver, spleen, adrenal glands and pancreas are unremarkable. There is mild left collecting system dilatation which is unchanged. There is marked renal cortical thinning. Evaluation is suboptimal given the lack of IV contrast. There is marked distention of the gallbladder is mild pericholecystic infiltration. There are gallstones within the gallbladder. Pneumobilia is new since prior exam and likely related to recent sphincterotomy. There is a diverticulum of the second portion of the duodenum. Choledocholithiasis seen on prior CT are not visualized on this exam. There is moderate presacral infiltration. The pelvis is suboptimally assessed due to streak artifact from bilateral hip arthroplasties. The amount of stool within the rectum and distal colon has markedly improved since prior CT. There is moderate rectal wall thickening. There is no evidence for a bowel obstruction. A Hu balloon is present within the bladder. There is an old T11 compression fracture. IMPRESSION: 1. Cholelithiasis, marked gallbladder distention and mild pericholecystic infiltration. The findings raise the possibility of acute cholecystitis. 2. Interval development of pneumobilia with nonvisualization of common bile duct calculi shown on prior CT. The findings suggest interval sphincterotomy. 3. Generalized anasarca. No retroperitoneal hematoma. 4. Moderate rectal wall thickening which suggests proctitis. Marked decrease in amount of stool within the rectum since prior CT. Moderate presacral infiltration. 5. Small right and trace left pleural effusion with extensive airspace opacities which could reflect pulmonary edema or bilateral pneumonia. Electronically signed by: Jason Arzola M.D. 12/24/2016 4:46 PM Dictated Date/Time: 12/24/2016 4:33 PM
[2016-12-24 16:53] LABS: PHOSPHORUS 3.9 mg/dl (2.5-4.9)
[2016-12-24] MEDS ORDERED: FUROSEMIDE INJ 40 MG in SYRINGE 0 ML IV ONE (18:00)
[2016-12-24] MEDS ORDERED: POTASSIUM CHLORIDE 10 MEQ TABCR PO SCH (19:45)
[2016-12-24] MEDS ORDERED: FUROSEMIDE INJ 20 MG in SYRINGE 0 ML IV SCH (20:45)
[2016-12-25] VITALS (42 sets, daily range): BP systolic 112–140; BP diastolic 69–98; PULSE 88–114; TEMP 36.4–37; O2SAT 90–100
[2016-12-25] MEDS: CLINDAMYCIN IV 900 MG in DEXTROSE 5% ADD-VANTAGE 100ML 100 ML IV SCH ×3 (01:31→17:39)
[2016-12-25] MEDS: LEVALBUTEROL 1.25MG/0.5ML NEB INH SCH ×4 (02:05→19:07)
[2016-12-25] MEDS: IPRATROPIUM BROMIDE NEB SOLN 0.02% 2.5 ML VIAL INH SCH ×4 (02:05→19:07)
[2016-12-25] MEDS: LEVOTHYROXINE 75 MCG TAB PO SCH (05:48)
[2016-12-25] MEDS: AZTREONAM IV 1,000 MG in DEXTROSE 5% 100ML IV SCH ×3 (05:48→22:04)
[2016-12-25 07:18] LABS: INR 1.3 (0.9-1.1); PARTIAL THROMBOPLASTIN RATIO 1.3; PROTHROMBIN TIME (PATIENT) 14.5 SECONDS (9.0-12.0)
[2016-12-25] MEDS: DOCUSATE SODIUM 100 MG CAP PO SCH ×2 (07:20→20:01)
[2016-12-25] MEDS: BOOST PLUS VANILLA PO SCH ×6 (07:20→20:00)
[2016-12-25] MEDS: POLYETHYLENE (MIRALAX) 17 GM PACK PO SCH ×2 (07:20→20:01)
--- NOTE | 2016-12-25 07:38 | DIAGNOSTIC IMAGING REPORT ---
CHEST ONE VIEW PORTABLE CLINICAL HISTORY: pulmonary edema dyspnea COMPARISON STUDY: 12/23/2016 FINDINGS: Some improvement in the patient's diffuse bilateral pulmonary edema. Slight improvement in visibility left hemidiaphragm. Heart remains mildly enlarged. IMPRESSION: Pulmonary edema slightly improved from the prior study. Electronically signed by: Kirill Escoto M.D. 12/25/2016 7:37 AM Dictated Date/Time: 12/25/2016 7:36 AM
[2016-12-25] MEDS ORDERED: VANCOMYCIN INJ 1,000 MG in SODIUM CHLORIDE 0.9% 250ML 250 ML IV ONE (08:00)
[2016-12-25 08:25] LABS: HEMATOCRIT 24.4 % (37-47); MEAN CELL VOLUME 89.1 fL (80-100); MEAN CORPUSCULAR HEMOGLOBIN 28.1 pg (25-34); MEAN PLATELET VOLUME 10.1 fL (7.4-10.4); PLATELET COUNT 113 K/uL (130-400); RED BLOOD COUNT 2.74 M/uL (4.2-5.4); WHITE BLOOD COUNT 12.21 K/uL (4.8-10.8)
[2016-12-25 08:30] LABS: ALB/GLOB RATIO 0.7 (0.9-2); BUN/CREATININE RATIO 17.8 (10-20); CALCIUM 7.4 mg/dl (8.5-10.1); CREATININE 1.3 mg/dl (0.60-1.20); MAGNESIUM 1.8 mg/dl (1.8-2.4); PHOSPHORUS 3.3 mg/dl (2.5-4.9); POTASSIUM 3.4 mmol/L (3.5-5.1)
[2016-12-25] MEDS: PANTOprazole INJ 40 MG in SYRINGE 0 ML IV SCH ×2 (08:46→20:48)
[2016-12-25] MEDS: MUPIROCIN 2% OINT 22 GM TUBE EXT SCH (08:46)
[2016-12-25 09:01] LABS: MEAN CORPUSCULAR HGB CONC 31.6 g/dl (32-36)
[2016-12-25 09:21] LABS: BASO % 0.3 %; BASO ABS # 0.04 K/uL (0-0.2); COMPLETE YES; EOS % 0.2 %; IG% 8.2 %; LYMPH % 8.8 %; LYMPH ABS # 1.07 K/uL (1.2-3.4); MONO % 2.9 %; NEUT % 79.6 %; TOXIC GRANULATION 1+
--- NOTE | 2016-12-25 09:26 | Hematology/Oncology Prog Note ---
Hematology/Onc Progress Note Date of Service Dec 25, 2016. Diagnoses Normochromic normocytic anemia Mild thrombocytopenia DVT Pulmonary edema Renal insufficiency Medications Medications Administered Medications (Trade) Dose Ordered Sig/Phillip Route Start Time Stop Time Status Last Admin Dose Admin Magnesium Citrate (Citrate Of Magnesia Soln) 150 ml NOW STAT PO 12/14/16 13:39 12/14/16 13:41 DC 12/14/16 13:59 150 ML Miscellaneous (Soap Suds Enema) 1 ea NOW STAT IA 12/14/16 13:39 12/14/16 13:41 DC 12/14/16 13:39 1 EA Metoclopramide HCl (Reglan Inj) 10 mg NOW STAT IV 12/14/16 15:15 12/14/16 15:16 DC 12/14/16 15:21 10 MG Sodium Chloride 500 ml @ 999 mls/hr Q31M STAT IV 12/14/16 15:15 12/14/16 15:45 DC 12/14/16 15:21 999 MLS/HR Acetaminophen (Tylenol Tab) 650 mg Q4H PRN PO 12/14/16 17:00 12/24/16 09:06 DC 12/19/16 11:45 650 MG Cholecalciferol (Vitamin D Tab) 2,000 inter.unit DAILY PO 12/15/16 08:00 12/24/16 09:06 DC 12/23/16 09:18 2,000 INTER.UNIT Cyanocobalamin (Vitamin B-12 Tab) 1,000 mcg DAILY PO 12/15/16 08:00 12/24/16 09:06 DC 12/23/16 09:18 1,000 MCG Diltiazem HCl (TIAzac CAP) 240 mg DAILY PO 12/15/16 08:00 12/24/16 09:06 DC 12/23/16 09:17 240 MG Docusate Sodium (coLACE CAP) 100 mg BID PO 12/14/16 20:00 01/13/17 20:59 12/23/16 20:07 100 MG Levothyroxine Sodium (Synthroid Tab) 75 mcg DAILYBB PO 12/15/16 06:30 12/21/16 18:52 DC 12/17/16 06:16 75 MCG Nystatin (Mycostatin Susp) 5 ml QID PO 12/14/16 19:00 12/24/16 18:59 DC 12/24/16 16:42 5 ML Pravastatin Sodium (Pravachol Tab) 20 mg HS PO 12/14/16 21:00 12/24/16 09:06 DC 12/23/16 22:50 20 MG Prednisone (PredniSONE TAB) 20 mg QAM PO 12/15/16 08:00 12/16/16 16:05 DC 12/16/16 07:29 20 MG Mupirocin (Bactroban 2% Oint) 1 appln DAILY EXT 12/15/16 08:00 01/14/17 07:59 12/25/16 08:46 1 APPLN Psyllium Hydrophilic Mucilloid (Metamucil Powder) 1 pkt DAILY PO 12/15/16 08:00 12/16/16 14:03 DC 12/16/16 07:29 1 PKT Pantoprazole Sodium (Protonix Tab) 40 mg BID PO 12/14/16 20:00 12/17/16 07:21 DC 12/16/16 21:11 40 MG Sodium Chloride 1,000 ml @ 100 mls/hr Q10H IV 12/14/16 17:00 12/16/16 14:03 DC 12/14/16 19:23 100 MLS/HR Polyethylene (Miralax Powder Packet) 17 gm QAM PO 12/15/16 08:00 12/15/16 11:09 DC 12/15/16 10:27 17 GM Bisacodyl (Dulcolax Supp) 10 mg NOW STAT IA 12/14/16 16:56 12/14/16 17:35 DC 12/14/16 19:20 10 MG Furosemide (Lasix Tab) 20 mg NOW ONCE PO 12/14/16 22:30 12/14/16 22:31 DC 12/14/16 22:40 20 MG Heparin Sodium/ Dextrose 500 ml @ 17 mls/hr Q24H PRN IV 12/15/16 01:00 12/24/16 08:37 DC 12/24/16 04:50 17 MLS/HR Morphine Sulfate (MoRPHine SULFATE INJ) 2 mg STK-MED ONCE .ROUTE 12/15/16 09:22 12/15/16 09:23 DC 12/15/16 09:31 2 MG Furosemide (Lasix Tab) 20 mg QAM PO 12/16/16 08:00 12/17/16 11:11 DC 12/16/16 07:29 20 MG Furosemide (Lasix Tab) 20 mg 1115 ONCE PO 12/15/16 11:15 12/15/16 11:16 DC 12/15/16 11:20 20 MG Polyethylene (Miralax Powder Packet) 17 gm BID PO 12/15/16 20:00 01/14/17 08:59 Future hold 12/23/16 20:07 17 GM Miscellaneous Medication (Milk And Molasses Enema) 1 ea TODAY@1400 IA 12/16/16 14:00 12/16/16 16:00 DC 12/16/16 14:00 1 EA Miscellaneous (Soap Suds Enema) 1 ea DAILY PRN IA 12/16/16 14:00 12/24/16 09:06 DC 12/20/16 14:23 1 EA Mineral Oil (Fleet Oil Enema) 133 ml DAILY PRN IA 12/16/16 14:15 12/24/16 09:06 DC 12/19/16 20:18 133 ML Ondansetron HCl (Zofran Inj) 4 mg Q8H PRN IV 12/16/16 19:30 01/15/17 19:29 12/19/16 16:05 4 MG Pantoprazole Sodium 80 mg/ Dextrose 120 ml @ 480 mls/hr NOW ONCE IV 12/17/16 07:45 12/17/16 07:59 DC 12/17/16 07:55 480 MLS/HR Pantoprazole Sodium 40 mg/ Dextrose 100 ml @ 20 mls/hr Q5H IV 12/17/16 08:00 12/17/16 17:32 DC 12/17/16 12:17 20 MLS/HR Sodium Chloride 1,000 ml @ 75 mls/hr [id number] IV 12/17/16 07:45 12/24/16 09:06 DC 12/17/16 21:34 75 MLS/HR Miscellaneous (Soap Suds Enema) 1 ea ONE STAT IA 12/17/16 16:50 12/17/16 17:17 DC 12/17/16 16:50 1 EA Mineral Oil (Fleet Oil Enema) 133 ml ONE ONCE IA 12/17/16 21:00 12/17/16 21:01 DC 12/17/16 20:40 133 ML Pantoprazole Sodium (Protonix Tab) 40 mg BID PO 12/17/16 20:00 12/24/16 09:06 DC 12/23/16 20:07 40 MG Levothyroxine Sodium (Synthroid Tab) 75 mcg DAILYBB PO 12/18/16 06:30 01/17/17 06:29 12/25/16 05:48 75 MCG Bisacodyl (Dulcolax Supp) 10 mg HS IA 12/17/16 22:00 12/18/16 15:18 DC 12/17/16 21:35 10 MG Enteral Nutritional Formula (Boost Breeze Nutritional Drink) 0.5 box TID PO 12/18/16 14:00 12/20/16 10:07 DC 12/20/16 09:22 0.5 BOX Sodium Biphosphate/ Sodium Phosphate (Fleet Enema) 132 ml TODAY@0800 ONCE IA 12/21/16 08:00 12/21/16 08:01 DC 12/21/16 09:46 132 ML Polyethylene Glycol/ Electrolytes (Golytely Soln) 8 dose DAILY@0800 PO 12/19/16 08:00 12/20/16 08:01 DC 12/20/16 09:48 8 DOSE Potassium Chloride (Klor-Con Tab) 40 meq BID PO 12/19/16 09:15 12/21/16 10:10 DC 12/20/16 20:52 40 MEQ Potassium Chloride (Klor-Con Tab) 40 meq NOW ONCE PO 12/20/16 09:30 12/20/16 09:33 DC 12/20/16 09:45 40 MEQ Enteral Nutritional Formula (Boost Breeze Nutritional Drink) 1 box TID PO 12/20/16 14:00 12/22/16 14:00 DC 12/21/16 20:08 1 BOX Sodium Chloride (Sodium Chloride Tab) 1 gm TID PO 12/20/16 14:00 12/23/16 10:31 DC 12/23/16 09:17 1 GM Potassium Chloride (Klor-Con Tab) 80 meq BID PO 12/21/16 20:00 12/22/16 10:13 DC 12/21/16 20:10 80 MEQ Potassium Chloride 10 meq/ Prmx 100 ml @ 100 mls/hr Q1H IV 12/21/16 11:00 12/21/16 14:59 DC 12/21/16 18:35 100 MLS/HR Cefoxitin Sodium 1000 mg/Dextrose 60 ml @ 100 mls/hr Q12H IV 12/21/16 12:00 12/23/16 22:34 DC 12/23/16 12:12 100 MLS/HR Miscellaneous (Stop Order) 1 ea ONE ONCE N/A 12/22/16 12:00 12/22/16 12:01 DC 12/22/16 10:49 1 EA Potassium Chloride (Klor-Con Tab) 40 meq DAILY PO 12/23/16 08:00 12/23/16 19:59 DC 12/23/16 09:19 40 MEQ Sodium Phosphate 40 mmol/Sodium Chloride 1,013.3333 ml @ 152 mls/hr TODAY@1030 IV 12/22/16 10:30 12/22/16 23:59 DC 12/22/16 11:16 152 MLS/HR Enteral Nutritional Formula (Boost Plus Vanilla) 1 can TID PO 12/22/16 20:00 01/21/17 19:59 12/23/16 20:07 1 CAN Heparin Sodium (Porcine) 4000 unit/Syringe 4 ml @ 10 mls/min NOW STAT IV 12/23/16 02:33 12/23/16 02:34 DC 12/23/16 02:43 10 MLS/MIN Warfarin Sodium (Coumadin Tab) 5 mg DAILY@16 PO 12/23/16 16:00 12/24/16 09:06 DC 12/23/16 16:48 5 MG Heparin Sodium (Porcine) 4000 unit/Syringe 4 ml @ 10 mls/min 1800 ONCE IV 12/23/16 18:00 12/24/16 08:37 DC 12/23/16 18:05 10 MLS/MIN Furosemide 40 mg/ Albumin Human 54 ml @ 54 mls/hr Q4H IV 12/23/16 23:00 12/24/16 14:55 DC 12/24/16 06:17 54 MLS/HR Aztreonam 2000 mg/ Dextrose 110 ml @ 100 mls/hr Q8H IV 12/23/16 22:30 12/24/16 10:38 DC 12/24/16 06:46 100 MLS/HR Clindamycin Phosphate 900 mg/ Dextrose 106 ml @ 100 mls/hr Q8H IV 12/24/16 02:00 12/31/16 01:59 12/25/16 01:31 100 MLS/HR Ipratropium Tyro (Atrovent 0.02% 0.5MG/2.5ML Neb) 0.5 mg Q6R INH 12/24/16 03:00 01/23/17 02:59 12/25/16 07:13 0.5 MG Levalbuterol (Xopenex 1.25MG/ 0.5ML Neb) 1.25 mg Q6R INH 12/24/16 03:00 01/23/17 02:59 12/25/16 07:14 1.25 MG Vancomycin HCl 1350 mg/Sodium Chloride 277 ml @ 125 mls/hr TODAY@2300 IV 12/23/16 23:00 12/24/16 01:13 DC 12/24/16 00:15 125 MLS/HR Furosemide 40 mg/ Syringe 4 ml @ 4 mls/min TODAY@0800 IV 12/24/16 08:00 12/24/16 11:00 DC 12/24/16 12:52 4 MLS/MIN Pantoprazole Sodium 40 mg/ Syringe 10 ml @ 5 mls/min BID IV 12/24/16 09:00 01/23/17 08:14 12/25/16 08:46 5 MLS/MIN Aztreonam 1000 mg/ Dextrose 110 ml @ 110 mls/hr DAILY@,, IV 12/24/16 14:00 12/30/16 13:59 12/25/16 05:48 110 MLS/HR Potassium Chloride 10 meq/ Prmx 100 ml @ 100 mls/hr Q1H IV 12/24/16 12:00 12/24/16 15:59 DC 12/24/16 18:27 100 MLS/HR Sodium Phosphate 15 mmol/Sodium Chloride 255 ml @ 100 mls/hr ONE ONCE IV 12/24/16 12:00 12/24/16 14:32 DC 12/24/16 12:35 100 MLS/HR Furosemide 40 mg/ Syringe 4 ml @ 4 mls/min ONE ONCE IV 12/24/16 18:00 12/24/16 18:01 DC 12/24/16 17:47 4 MLS/MIN Potassium Chloride (Klor-Con M10) 40 meq TODAY@1945 PO 12/24/16 19:45 12/24/16 19:46 DC 12/24/16 20:42 40 MEQ Furosemide 20 mg/ Syringe 2 ml @ 4 mls/min TODAY@2044 IV 12/24/16 20:45 12/24/16 21:00 DC 12/24/16 20:41 4 MLS/MIN Vancomycin HCl 1000 mg/Sodium Chloride 270 ml @ 125 mls/hr NOW ONCE IV 12/25/16 08:00 12/25/16 10:09 12/25/16 08:46 125 MLS/HR Subjective She is now in ICU. Hemoglobin after one unit of red cells of 7.7. Platelet count slightly better but still low over the past 2 days. Platelet count today is 113,000. She states her breathing is somewhat better.. His been no overt bleeding according to the records. Review of Systems: Constitutional: negative for fever Eyes: Negative for event change of vision ENT: Negative for epistaxis, nasal discharge, sore throat, or deafness Cardiovascular: Negative for chest pain, palpitations, dizziness, diaphoresis Respiratory: She states her breathing is somewhat better than yesterday Gastrointestinal: Negative for diarrhea, hematemesis, melena, nausea, vomiting , or dyspepsia Integumentary (skin): Positive for ecchymosis from venipuncture Genitourinary: Negative for urinary frequency, hematuria, or dysuria Neurological: Negative for new weakness, no seizure activity, headache, or dizziness Lymphatic/Hematologic: Negative for petechiae, bleeding or new adenopathy Musculoskeletal: Negative for new joint or back pain Allergic/Immunologic: Negative for unusual rash or pruritis. Vital Signs Vital Signs Past 12 Hours Date Time Temp Pulse Resp B/P (MAP) Pulse Ox O2 Delivery O2 Flow Rate FiO2 12/25/16 07:14 89 18 100 BiPAP/CPAP 70 12/25/16 07:14 100 60 12/25/16 06:00 96 27 123/98 (106) 100 BiPAP 60 12/25/16 05:34 100 60 12/25/16 04:00 36.4 99 24 128/71 (90) 100 BiPAP 60 12/25/16 04:00 100 BiPAP 60 12/25/16 02:05 95 18 100 BiPAP/CPAP 70 12/25/16 02:05 95 100 70 12/25/16 02:00 99 18 126/69 (88) 100 BiPAP 60 12/25/16 00:01 36.4 105 23 134/80 (98) 100 BiPAP 70 12/24/16 23:59 100 BiPAP 70 12/24/16 23:01 98 100 100 12/24/16 22:00 100 24 117/76 (90) 100 BiPAP 80 Physical Exam Constitutional: vitals are stable. Thin elderly female. Vitals appear stable Eyes: Eyes are TUAN EOMI without conjuctival erythema or icterus. ENT: External examination was negative for masses. Neck: Negative for masses or palpable thyromegaly Respiratory: Lung sounds reflect occasional rales bilaterally Cardiovascular: Heart was RRR with occasional ectopic beat Gastrointestinal: No palpable hepatic or splenomegaly. The abdomen was soft with normal bowel sounds. Lymphatic system: there was no palpable peripheral lymphadenopathy Musculoskeletal System: The musculoskeletal system seemed concordant with age. Skin: The skin was negative for jaundice. A variety of senile ecchymosis Neurologic exam: The exam was negative for any focal findings. Deep tendon reflexes were equal and symmetrical. Psychiatric exam: Was essentially negative with normal mood and effect. Extremities: Bilateral lower extremity edema pitting nontender Constitutional: Level of Distress: NAD, chronically ill Psychiatric: Mental Status: active & alert Orientation: oriented except where noted Lungs: Auscuitation: CTA except as noted Cardiovascular: Heart Auscultation: RRR Abdomen: Inspection & Palpation: soft, no tenderness, guarding & rebound, distended Extremities: no edema Laboratory Last 24 Hours Test 12/24/16 11:24 12/24/16 11:29 12/24/16 11:46 12/24/16 12:02 Bedside Glucose 188 mg/dl Blood Gas Sample Site L Brachial Bedside Blood Gas pH (LAB) 7.48 Bedside Blood Gas pCO2 (LAB) 29 mmHg Bedside Blood Gas pO2 (LAB) 87 mmHg Bedside Blood Gas HCO3 (LAB) 22 meq/L Bedside Blood Gas Total CO2 22 mEq/l Bedside Blood Gas Base Excess (LAB) -2.0 meq/L Bedside Blood Gas O2 Saturation 97.0 % Melecio Test NA Oxygen Delivery Device BIPAP Bedside Oxygen Rate (breaths/min) 12 Bedside FiO2 50 % Blood Gas IPAP 12 Hemoglobin 6.3 g/dL Hematocrit 18.9 % Lactic Acid Level 1.6 mmol/L Troponin I 0.145 ng/ml Pro-B-Type Natriuretic Peptide > 11726 pg/ml Procalcitonin 3.09 ng/ml Test 12/24/16 16:11 12/24/16 22:18 12/25/16 07:02 12/25/16 08:18 Hemoglobin 7.7 g/dL 8.1 g/dL 7.7 g/dL Hematocrit 23.8 % 24.0 % 24.4 % Sodium Level 136 mmol/L 134 mmol/L Potassium Level 2.9 mmol/L 3.4 mmol/L Chloride Level 101 mmol/L 100 mmol/L Carbon Dioxide Level 24 mmol/L 24 mmol/L Anion Gap 11.0 mmol/L 10.0 mmol/L Blood Urea Nitrogen 22 mg/dl 23 mg/dl Creatinine 1.20 mg/dl 1.30 mg/dl Est Creatinine Clear Calc Drug Dose 28.0 ml/min 29.0 ml/min Estimated GFR () 46.7 42.4 Estimated GFR (Non- 40.3 36.6 BUN/Creatinine Ratio 18.3 17.8 Random Glucose 159 mg/dl 143 mg/dl Calcium Level 7.4 mg/dl 7.4 mg/dl Phosphorus Level 3.9 mg/dl 3.3 mg/dl Troponin I 0.127 ng/ml 0.132 ng/ml Prothrombin Time 14.5 SECONDS Prothromb Time International Ratio 1.3 Activated Partial Thromboplast Time 33.9 SECONDS Partial Thromboplastin Ratio 1.3 Magnesium Level 1.8 mg/dl Total Bilirubin 1.9 mg/dl Aspartate Amino Transf (AST/SGOT) 55 U/L Alanine Aminotransferase (ALT/SGPT) 59 U/L Alkaline Phosphatase 309 U/L Total Protein 5.0 gm/dl Albumin 2.0 gm/dl Globulin 3.0 gm/dl Albumin/Globulin Ratio 0.7 Random Vancomycin Level 9.6 mcg/ml White Blood Count 12.21 K/uL Red Blood Count 2.74 M/uL Mean Corpuscular Volume 89.1 fL Mean Corpuscular Hemoglobin 28.1 pg Mean Corpuscular Hemoglobin Concent 31.6 g/dl Platelet Count 113 K/uL Mean Platelet Volume 10.1 fL Neutrophils (%) (Auto) 79.6 % Lymphocytes (%) (Auto) 8.8 % Monocytes (%) (Auto) 2.9 % Eosinophils (%) (Auto) 0.2 % Basophils (%) (Auto) 0.3 % Neutrophils # (Auto) 9.73 K/uL Lymphocytes # (Auto) 1.07 K/uL Monocytes # (Auto) 0.35 K/uL Eosinophils # (Auto) 0.02 K/uL Basophils # (Auto) 0.04 K/uL RDW Standard Deviation 46.5 fL RDW Coefficient of Variation 14.4 % Immature Granulocyte % (Auto) 8.2 % Immature Granulocyte # (Auto) 1.00 K/uL Nucleated RBC Absolute Count (auto) 0.03 K/uL Nucleated Red Blood Cells % 0.3 % Toxic Granulation 1+ Assessment & Plan I suspect her anemia to some degree is secondary to renal insufficiency. Iron studies are normal MCV normal.. Hemoglobin is 7.7 after one unit of red cells. Would transfuse another unit. In addition I believe we should start exogenous erythropoietin (Procrit) and this was reviewed with patient and accepts. I understand and IVC filter is being planned L that she is off heparin. I doubt that the thrombocytopenia secondary to heparin; rule out underlying ARDS subsequent mild thrombocytopenia.
--- NOTE | 2016-12-25 10:08 | Nephrology Progress Note ---
Nephrology Progress Note Date of Service Dec 25, 2016. Chief Complaint Follow up evaluation of this patient admitted w/ acute on chronic kidney injury and electrolyte disorders in the setting of CBD stone and anemia Subjective Ms. Rivera was seen & examined in the ICU this morning. She has had an abrupt decline in her Hgb associated w/ respiratory distress. She is now on BiPAP therapy. Patient is being evaluated for a possible PE. She may require an IVC filter. She currently denies overt blood loss. Review of Systems Constitutional: No fever Cardiovascular: No chest pain Respiratory: + dyspnea at rest Abdomen: No pain, No nausea, No vomiting Extremities: + leg edema A complete review of systems was performed. Pertinent positives are noted above. All other systems are negative. Vital Signs Last 8 Hrs Date Time Temp Pulse Resp B/P (MAP) Pulse Ox O2 Delivery O2 Flow Rate FiO2 12/25/16 07:14 89 18 100 BiPAP/CPAP 70 12/25/16 07:14 100 60 12/25/16 06:00 96 27 123/98 (106) 100 BiPAP 60 12/25/16 05:34 100 60 12/25/16 04:00 36.4 99 24 128/71 (90) 100 BiPAP 60 12/25/16 04:00 100 BiPAP 60 12/25/16 02:05 95 18 100 BiPAP/CPAP 70 12/25/16 02:05 95 100 70 12/25/16 02:00 99 18 126/69 (88) 100 BiPAP 60 Last Recorded Weight Weight (Kilograms): 71.300 Physical Exam General Appearance: + mild distress (requires BiPAP) Head: atraumatic Eyes: PERRL, EOMI Neck: no adenopathy Respiratory/Chest: + crackles Cardiovascular: + tachycardia Abdomen/GI: normal bowel sounds, non tender, soft Extremities/Musculoskelatal: + swelling (1+ pretibial pitting edema) Neurologic/Psych: alert, oriented x 3 Family History Heart disease Social History Drug Use: none Marital Status: Housing Status: lives with family 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 Laboratory Results Past 24 Hours 12/24/16 11:46 12/24/16 16:11 12/24/16 22:18 12/25/16 08:18 Red Blood Count 2.74, Mean Corpuscular Volume 89.1, Mean Corpuscular Hemoglobin 28.1, Mean Corpuscular Hemoglobin Concent 31.6, Mean Platelet Volume 10.1, Neutrophils (%) (Auto) 79.6, Lymphocytes (%) (Auto) 8.8, Monocytes (%) (Auto) 2.9, Eosinophils (%) (Auto) 0.2, Basophils (%) (Auto) 0.3, Neutrophils # (Auto) 9.73, Lymphocytes # (Auto) 1.07, Monocytes # (Auto) 0.35, Eosinophils # (Auto) 0.02, Basophils # (Auto) 0.04 12/24/16 16:11 12/25/16 07:02 Test 12/24/16 11:24 12/24/16 11:29 12/24/16 12:02 12/24/16 16:11 Bedside Glucose 188 mg/dl (70-90) Blood Gas Sample Site L Brachial Bedside Blood Gas pH (LAB) 7.48 (7.35-7.45) Bedside Blood Gas pCO2 (LAB) 29 mmHg (35-46) Bedside Blood Gas pO2 (LAB) 87 mmHg (80-95) Bedside Blood Gas HCO3 (LAB) 22 meq/L (19-24) Bedside Blood Gas Total CO2 22 mEq/l (24-31) Bedside Blood Gas Base Excess (LAB) -2.0 meq/L (-9-1.8) Bedside Blood Gas O2 Saturation 97.0 % (90-95) Melecio Test NA Oxygen Delivery Device BIPAP Bedside Oxygen Rate (breaths/min) 12 Bedside FiO2 50 % Blood Gas IPAP 12 Lactic Acid Level 1.6 mmol/L (0.4-2.0) Troponin I 0.145 ng/ml (0-0.045) 0.127 ng/ml (0-0.045) Pro-B-Type Natriuretic Peptide > 49040 pg/ml (0-1800) Procalcitonin 3.09 ng/ml (0-0.5) Anion Gap 11.0 mmol/L (3-11) Est Creatinine Clear Calc Drug Dose 28.0 ml/min Estimated GFR () 46.7 Estimated GFR (Non- 40.3 BUN/Creatinine Ratio 18.3 (10-20) Calcium Level 7.4 mg/dl (8.5-10.1) Phosphorus Level 3.9 mg/dl (2.5-4.9) Test 12/24/16 22:18 6/16/17 07:02 12/25/16 08:18 12/25/16 09:26 Troponin I 0.132 ng/ml (0-0.045) Prothrombin Time 14.5 SECONDS (9.0-12.0) Prothromb Time International Ratio 1.3 (0.9-1.1) Activated Partial Thromboplast Time 33.9 SECONDS (21.0-31.0) Partial Thromboplastin Ratio 1.3 Anion Gap 10.0 mmol/L (3-11) Est Creatinine Clear Calc Drug Dose 29.0 ml/min Estimated GFR () 42.4 Estimated GFR (Non- 36.6 BUN/Creatinine Ratio 17.8 (10-20) Calcium Level 7.4 mg/dl (8.5-10.1) Phosphorus Level 3.3 mg/dl (2.5-4.9) Magnesium Level 1.8 mg/dl (1.8-2.4) Total Bilirubin 1.9 mg/dl (0.2-1) Aspartate Amino Transf (AST/SGOT) 55 U/L (15-37) Alanine Aminotransferase (ALT/SGPT) 59 U/L (12-78) Alkaline Phosphatase 309 U/L (45-117) Total Protein 5.0 gm/dl (6.4-8.2) Albumin 2.0 gm/dl (3.4-5.0) Globulin 3.0 gm/dl (2.5-4.0) Albumin/Globulin Ratio 0.7 (0.9-2) Random Vancomycin Level 9.6 mcg/ml White Blood Count 12.21 K/uL (4.8-10.8) Red Blood Count 2.74 M/uL (4.2-5.4) Hemoglobin 7.7 g/dL (12.0-16.0) Hematocrit 24.4 % (37-47) Mean Corpuscular Volume 89.1 fL (80-100) Mean Corpuscular Hemoglobin 28.1 pg (25-34) Mean Corpuscular Hemoglobin Concent 31.6 g/dl (32-36) Platelet Count 113 K/uL (130-400) Mean Platelet Volume 10.1 fL (7.4-10.4) Neutrophils (%) (Auto) 79.6 % Lymphocytes (%) (Auto) 8.8 % Monocytes (%) (Auto) 2.9 % Eosinophils (%) (Auto) 0.2 % Basophils (%) (Auto) 0.3 % Neutrophils # (Auto) 9.73 K/uL (1.4-6.5) Lymphocytes # (Auto) 1.07 K/uL (1.2-3.4) Monocytes # (Auto) 0.35 K/uL (0.11-0.59) Eosinophils # (Auto) 0.02 K/uL (0-0.5) Basophils # (Auto) 0.04 K/uL (0-0.2) RDW Standard Deviation 46.5 fL (36.4-46.3) RDW Coefficient of Variation 14.4 % (11.5-14.5) Immature Granulocyte % (Auto) 8.2 % Immature Granulocyte # (Auto) 1.00 K/uL (0.00-0.02) Nucleated RBC Absolute Count (auto) 0.03 K/uL (0-0) Nucleated Red Blood Cells % 0.3 % Toxic Granulation 1+ Allergies Coded Allergies: Doxycycline (Verified Allergy, Intermediate, RASH, 12/21/16) Trimethoprim (Verified Allergy, Intermediate, RASH, 12/21/16) Adhesives (Verified Allergy, Unknown, HAD RXN TO HOLTER MONITOR PATCHES, ) Amoxicillin (Verified Allergy, Unknown, RASH, 12/21/16) Atorvastatin (Verified Allergy, Unknown, UNKNOWN, 12/21/16) Carbamazepine (Verified Allergy, Unknown, 12/21/16) Hydantoins (Verified Allergy, Unknown, 12/21/16) Levofloxacin (Verified Allergy, Unknown, UNKNOWN, 12/21/16) Penicillins (Verified Allergy, Unknown, AMOXIL,HAS TOLERATED CEPHS, ) has tolerated cefepime and ceftriaxone on previous admissions Phenytoin (Verified Allergy, Unknown, 12/21/16) Sulfamethoxazole w/Trimethoprim (Unverified Allergy, Unknown, VASCULITIS, 12/21/16) Medications Current Inpatient Medications Medications (Trade) Dose Ordered Sig/Phillip Route Start Time Stop Time Status Last Admin Dose Admin Docusate Sodium (coLACE CAP) 100 mg BID PO 12/14/16 20:00 01/13/17 20:59 12/23/16 20:07 100 MG Mupirocin (Bactroban 2% Oint) 1 appln DAILY EXT 12/15/16 08:00 01/14/17 07:59 12/25/16 08:46 1 APPLN Polyethylene (Miralax Powder Packet) 17 gm BID PO 12/15/16 20:00 01/14/17 08:59 Future hold 12/23/16 20:07 17 GM Morphine Sulfate (MoRPHine SULFATE INJ) 2 mg Q4H PRN IV 12/15/16 12:00 12/29/16 11:59 Ondansetron HCl (Zofran Inj) 4 mg Q8H PRN IV 12/16/16 19:30 01/15/17 19:29 12/19/16 16:05 4 MG Levothyroxine Sodium (Synthroid Tab) 75 mcg DAILYBB PO 12/18/16 06:30 01/17/17 06:29 12/25/16 05:48 75 MCG Bisacodyl (Dulcolax Supp) 10 mg HS PRN [place] 12/18/16 15:30 01/13/17 16:59 Enteral Nutritional Formula (Boost Plus Vanilla) 1 can TID PO 12/22/16 20:00 01/21/17 19:59 12/23/16 20:07 1 CAN Clindamycin Phosphate 900 mg/ Dextrose 106 ml @ 100 mls/hr Q8H IV 12/24/16 02:00 12/31/16 01:59 12/25/16 01:31 100 MLS/HR Ipratropium Sandy (Atrovent 0.02% 0.5MG/2.5ML Neb) 0.5 mg Q6R INH 12/24/16 03:00 01/23/17 02:59 12/25/16 07:13 0.5 MG Levalbuterol (Xopenex 1.25MG/ 0.5ML Neb) 1.25 mg Q6R INH 12/24/16 03:00 01/23/17 02:59 12/25/16 07:14 1.25 MG Ipratropium Sandy (Atrovent 0.02% 0.5MG/2.5ML Neb) 0.5 mg Q2H PRN INH 12/23/16 22:45 01/22/17 22:44 Levalbuterol (Xopenex 1.25MG/ 0.5ML Neb) 1.25 mg Q2H PRN INH 12/23/16 22:45 01/22/17 22:44 Vancomycin HCl (Consult) 1 ea UD PRN N/A 12/24/16 00:30 01/23/17 00:29 Pantoprazole Sodium 40 mg/ Syringe 10 ml @ 5 mls/min BID IV 12/24/16 09:00 01/23/17 08:14 12/25/16 08:46 5 MLS/MIN Aztreonam 1000 mg/ Dextrose 110 ml @ 110 mls/hr DAILY@06,14,22 IV 12/24/16 14:00 12/30/16 13:59 12/25/16 05:48 110 MLS/HR Aztreonam (Consult) 1 ea UD PRN N/A 12/24/16 10:45 01/23/17 10:44 Vancomycin HCl 1000 mg/Sodium Chloride 270 ml @ 125 mls/hr NOW ONCE IV 12/25/16 08:00 12/25/16 10:09 12/25/16 08:46 125 MLS/HR Epoetin Baljinder (Procrit Inj) 20,000 units TODAY@1400 IV 12/25/16 14:00 12/25/16 14:01 Impression (1) Hyponatremia (2) ANA PAULA (acute kidney injury) (3) Hypertension Nos (4) Anemia (5) Obstipation Anusha is a 86-year-old female admitted to the hospital with constipation and fecal impaction. Anusha unfortunately developed ANA PAULA consistent with ATN. Creatinine peaked at 2.4 mg/dL on December 18. Kidney function had recovered to baseline. Anusha developed hyponatremia attributed to poor oral intake and nutrition. She does have evidence of TBW in the form of dependent edema associated with hypoalbuminemia. Urine sodium and potassium both low consistent with prerenal/ sodium avid state. Colonoscopy was poor prep but did not identify any pathology. She had an ERCP 12/22/16 for LFT abnormalities. Recommendations CKD/ANA PAULA: -- Creatinine remains at baseline -- Monitor I/O's and metabolic profile closely -- Recommend gentle diureses as patient is mildly edematous Anemia: -- CT reports of the chest, abdomen and pelvis were reviewed today. No retroperitoneal hemorrhage identified -- Hematology note reviewed this am. Patient has been ordered one unit PRBC and has been started on KERI Pulmonary edema/acute CHF: -- TTE report reviewed today. LVEF 45 - 50 %. Severe calcific . Moderate MR. Normal IVC pressure Hyponatremia: -- Hypervolemic at this time -- Complicated by increased ADH state and will need to be monitored closely -- Poor solute state associated with malnutrition Malnutrition: -- Patient is hypoalbuminemic and nutritional support will need to be considered early
--- NOTE | 2016-12-25 11:06 | Surgery Consultation ---
Consultation Date of Service Dec 25, 2016. (Kym Urbano, SANGITA) Chief Complaint DVT, severe anemia (Kym Urbano PA-C) History of Present Illness The patient is a 86 year old female with multiple medical problems, currently with respiratory failure, acute DVT, and severe anemia, seen in consultation today for IVC filter insertion. Pt currently on BiPAP. Difficult to communicate, but sons are present as well. Pt admits SOB and edema. Denies RENAE , fever, chills, chest pain, abd pain, N/V, extremity pain, other complaints. (Kym Urbano, SANGITA) Vitals Vital Signs Past 12 Hours Date Time Temp Pulse Resp B/P (MAP) Pulse Ox O2 Delivery O2 Flow Rate FiO2 12/25/16 10:01 114 22 140/76 (97) 93 Oxymask 12.0 12/25/16 09:01 105 24 112/80 (91) 91 Oxymask 12.0 12/25/16 08:01 36.6 97 26 137/74 (95) 100 BiPAP 60 12/25/16 08:00 BiPAP 60 12/25/16 07:14 89 18 100 BiPAP/CPAP 70 12/25/16 07:14 100 60 12/25/16 07:01 96 19 133/87 (102) 100 BiPAP 60 12/25/16 06:00 96 27 123/98 (106) 100 BiPAP 60 12/25/16 05:34 100 60 12/25/16 04:00 36.4 99 24 128/71 (90) 100 BiPAP 60 12/25/16 04:00 100 BiPAP 60 12/25/16 02:05 95 18 100 BiPAP/CPAP 70 12/25/16 02:05 95 100 70 12/25/16 02:00 99 18 126/69 (88) 100 BiPAP 60 12/25/16 00:01 36.4 105 23 134/80 (98) 100 BiPAP 70 12/24/16 23:59 100 BiPAP 70 12/24/16 23:01 98 100 100 (Kym Urbano PA-C) Allergies Coded Allergies: Doxycycline (Verified Allergy, Intermediate, RASH, 12/21/16) Trimethoprim (Verified Allergy, Intermediate, RASH, 12/21/16) Adhesives (Verified Allergy, Unknown, HAD RXN TO HOLTER MONITOR PATCHES, ) Amoxicillin (Verified Allergy, Unknown, RASH, 12/21/16) Atorvastatin (Verified Allergy, Unknown, UNKNOWN, 12/21/16) Carbamazepine (Verified Allergy, Unknown, 12/21/16) Hydantoins (Verified Allergy, Unknown, 12/21/16) Levofloxacin (Verified Allergy, Unknown, UNKNOWN, 12/21/16) Penicillins (Verified Allergy, Unknown, AMOXIL,HAS TOLERATED CEPHS, ) has tolerated cefepime and ceftriaxone on previous admissions Phenytoin (Verified Allergy, Unknown, 12/21/16) Sulfamethoxazole w/Trimethoprim (Unverified Allergy, Unknown, VASCULITIS, 12/21/16) Home Medications Scheduled Cholecalciferol (Vitamin D3), 1 TAB PO DAILY Cyanocobalamin (Vitamin B-12), 1,000 MCG PO DAILY Diltiazem Hcl Ext Rel (Tiazac), 240 MG PO DAILY Docusate Sodium (Docusate Sodium), 100 MG PO DAILY Furosemide (Lasix), 40 MG PO DAILY Home O2 Therapy (Oxygen), 2 LITERS NA PRN Levothyroxine Sodium (Synthroid), 75 MCG PO DAILY Mupirocin 2% (Bactroban 2%), 1 APPLN EXT UD Nystatin (Nystatin Suspension), 5 ML PO QID Pantoprazole (Protonix), 20 MG PO BID Potassium Chloride (Klor-Con M20), 20 MEQ PO DAILY Pravastatin (Pravachol ), 20 MG PO HS Psyllium (Metamucil), 2 PIECE PO DAILY Miscellaneous Medications Prednisone Tab (Prednisone), 10 MG PO Problem List Medical Problems: (1) Acute respiratory failure with hypoxia and hypercapnia (2) Anemia (3) Aortic Valve Disorder (4) ARDS (adult respiratory distress syndrome) (5) Atrial Fibrillation (6) Chronic kidney disease, stage 3 (7) Chronic Kidney Disease, Unspecified (8) Congestive Heart Failure Nos (9) Coronary Atherosclerosis Of [place] Coronary Vessel (10) Hemoptysis (11) Hypertension Nos (12) Hyponatremia (13) Metabolic acidosis (14) Nephrotic Syndrome Nec (15) Obstipation (16) Osteoporosis Nos (17) Personal Hx Of Tia,& Cerebral Infarction W/Out Res Deficits (18) Renal Failure Nos (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 (Kym Urbano, PACaliC) Surgical / Medical History Hx Cardiac Surgery: No Hx Abdominal Surgery: Yes (appendectomy) Hx Cancer Surgery: No Hx Thoracic Surgery: No Hx Orthopedic: Yes (bilateral hip ) Hx Urinary Tract Surgery: Yes (hysterectomy complete ) Past Medical/Surgical History: Heart Disease, High Cholesterol, Hypertension, Kidney Disease, Thyroid Disease (Kym Urbano, SNEHALC) Family History Heart disease (Kym Urbano PA-C) Heart disease (Anderson Hammond M.D.) Social History Smoking Status: Never Smoker Hx Tobacco Use In Past Year?: No Hx Alcohol Use - Type & Amnt: No Hx Substance Use -Type & Amnt: No (Kym Urbano, SNEHALC) Review of Systems Constitutional: + malaise, No chills, No fever Skin: No change in color Eyes: No visual changes ENMT: No sore throat Respiratory: + cough, + YEE, + orthopnea, + short of breath, No hemoptysis Cardiovascular: No chest pain, No palpitations, No syncope Gastrointestinal: No abdominal pain, No nausea, No vomiting Genitourinary - Female: No dysuria, No hematuria Neurologic: No dizziness, No headache, No numbness, No tingling (Kym Urbano, PA-C) Physical Exam Constitutional: General Apperance: well-nourished, well-developed Level of Distress: NAD, acutely ill, chronically ill Psychiatric: Mental Status: active & alert, normal mood, normal affect Orientation: oriented except where noted, to time, to place, to person Memory: recent memory normal, remote memory normal Head: normocephalic, atraumatic Eyes: EOM: EOMI ENMT: normal ENT inspection, hearing grossly normal Neck: supple, trachea midline Lungs: Respiratory effort: no dyspnea Auscultation: no rhonchi, decreased breath sounds, wet rales/crackles Cardiovascular: Apical Impulse: not displaced Heart Auscultation: RRR, no rubs, no gallops Peripheral Pulses: Pulses: full and equal, in all extremities except if noted Bruits: none appreciated Carotid Pulse: normal on the left, normal on the right Brachial Pulses: normal on the left, normal on the right Radial Pulse: normal on the left, normal on the right Femoral Pulse: normal on the left, normal on the right Posterior Tibialis Pulse: decreased on the left, decreased on the right Dorsalis Pedis Pulse: decreased on the left, decreased on the right Abdomen: Bowel Sounds: normal Inspection & Palpation: soft, non-distended, no tenderness, guarding & rebound Musculoskeletal: normal strength (5/5 throughout), normal tone Extremities: Upper Right: no cyanosis, no varicosities, edema Upper Left: no cyanosis, no varicosities, no palpable cord, edema Lower Right: no cyanosis, no varicosities, no palpable cord, edema Lower Left: no cyanosis, no varicosities, edema Neurologic: Cranial Nerves: grossly intact Sensation: grossly intact (Kym Urbano, PA-C) Assessment and Plan ASSESSMENT and PLAN: acute DVT Severe anemia Pt for IVC filter insertion today. Procedure, risks, benefits, and alternatives discussed with pt and sons present, pt agreeable. (Kym Urbano, PA-C) Patient was seen, examined, and chart reviewed. Agree with exam and treatment plan of the Vascular PA. I have discussed the risks options and benefits of the procedure with the patient. The patient understands the risks options and benefits and agrees to the procedure. (Anderson Hammond M.D.)
[2016-12-25] MEDS ORDERED: MIDAZOLAM HCL 1 MG/ML 2ML VIAL ONE (12:20)
[2016-12-25] MEDS ORDERED: FENTANYL CITRATE INJ 50 MCG/1 ML 2 ML VIAL ONE (12:20)
--- NOTE | 2016-12-25 12:24 | Procedure Note ---
Procedure Note Date of Service Dec 25, 2016. (Tremaine Montez MD) Procedure Note Type of Procedure: Central Venous Catheter Placement Pre-Procedure Diagnosis: Acute Hypoxemic Respiratory Failure, CHF, Pneumonia Post-Procedure Diagnosis: Same Indication: Need for vascular access, multiple medication delivery, inability to have PICC line Performing Physician: Dr. Tremaine Montez, PGY2 Family Medicine Attending/Supervising Physician: Dr. Dolly Cardoso MD Critical Care Consent: Detailed explanation of the procedure, treatment options, risks including but not limited to infection and bleeding, and benefits were explained to the patient. A written informed consent was obtained and placed in the patient's chart. Technique: A time out was preformed identifying the correct procedure, the correct location with the nursing staff. The right neck was prepped with 2% chlorhexidine and draped with a full length sterile sheet in the usual fashion. 1% lidocaine was administered subcutaneously for local anesthesia. The right internal jugular vein was accessed under ultrasound guidance with an 18 gauge thin wall needle. Blood return was achieved and a guidewire was inserted into the vein. Guidewire position in the internal jugular vein was confirmed by ultrasound. A triple lumen catheter was inserted via the Seldinger technique. Blood was withdrawn from all lumens and flushed with normal saline. The catheter was sutured at [address] and a sterile dressing was applied over the site prior to removal of drapes. The patient tolerated the procedure well and there were no complications. Chest x ray confirmed correct positioning of the catheter EBL: 1 cc Complication: None (Tremaine Montez MD) Attending Poultry Helper: I supervised the above procedure and was at the bedside throughout. PVC's with passing of the wire which was pulled back. Tip may be a bit deep on CXR but no arrhythmia noted. Patient tolerated the procedure well. (Dolly Cardoso MD)
--- NOTE | 2016-12-25 12:29 | DIAGNOSTIC IMAGING REPORT ---
CHEST ONE VIEW PORTABLE CLINICAL HISTORY: Check placement of new right IJ central line. COMPARISON STUDY: Chest CT December 24, 2016 and chest radiograph performed earlier today. FINDINGS: There has been interval placement of a right internal jugular central line. Catheter tip projects over the distal SVC. There is no pneumothorax. Extensive bilateral airspace opacities and interstitial thickening has slightly progressed. Small bilateral pleural effusions are noted. 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 IMPRESSION: 1. No pneumothorax following placement of a right internal jugular central line. Catheter tip projects over the distal SVC. 2. Slight progression of extensive bilateral airspace opacities and interstitial thickening which could reflect pneumonia, pulmonary edema or ARDS. Electronically signed by: Jason Arzola M.D. 12/25/2016 12:28 PM Dictated Date/Time: 12/25/2016 12:26 PM
[2016-12-25] MEDS ORDERED: LIDOCAINE HCL 1% 20 ML VIAL INFIL ONE (12:55)
[2016-12-25] MEDS ORDERED: IODIXANOL (VISIPAQUE) 270 MG/ML 50ML IV ONE (13:07)
--- NOTE | 2016-12-25 13:11 | [facility] Post Operative Brief Note ---
Immediate Operative Summary Operative Date Dec 25, 2016. Pre-Operative Diagnosis acute DVT Severe anemia Post-Operative Diagnosis Same Procedure(s) Performed Insertion of Vena Cava Filter, Right Femoral Approach Fluoroscopy Comfirmation Surgeon Stephany Kiln Packer Surgeon(s) Claudine Luis Estimated Blood Loss 2 Findings filter upright in infrarenal vena cava Specimens None Anesthesia MAC Complication(s) None Disposition Surgical ICU
--- NOTE | 2016-12-25 13:41 | Anesthesiology Progress Note ---
Anesthesia Post Op Note Date & Time Dec 25, 2016 at 13:41 Vital Signs Pain Intensity: 0.0 Vital Signs Past 12 Hours Date Time Temp Pulse Resp B/P (MAP) Pulse Ox O2 Delivery O2 Flow Rate FiO2 12/25/16 12:01 36.6 105 19 125/76 (92) 99 BiPAP 60 12/25/16 12:00 BiPAP 60 12/25/16 11:37 104 20 130/84 (99) 100 BiPAP 60 12/25/16 10:01 114 22 140/76 (97) 93 Oxymask 12.0 12/25/16 09:01 105 24 112/80 (91) 91 Oxymask 12.0 12/25/16 08:01 36.6 97 26 137/74 (95) 100 BiPAP 60 12/25/16 08:00 BiPAP 60 12/25/16 07:14 89 18 100 BiPAP/CPAP 70 12/25/16 07:14 100 60 12/25/16 07:01 96 19 133/87 (102) 100 BiPAP 60 12/25/16 06:00 96 27 123/98 (106) 100 BiPAP 60 12/25/16 05:34 100 60 12/25/16 04:00 36.4 99 24 128/71 (90) 100 BiPAP 60 12/25/16 04:00 100 BiPAP 60 12/25/16 02:05 95 18 100 BiPAP/CPAP 70 12/25/16 02:05 95 100 70 12/25/16 02:00 99 18 126/69 (88) 100 BiPAP 60 Notes Mental Status: alert / awake / arousable, participated in evaluation Pt Amnestic to Procedure: Yes Nausea / Vomiting: adequately controlled Pain: adequately controlled Airway Patency, RR, SpO2: stable & adequate BP & HR: stable & adequate Hydration State: stable & adequate Anesthetic Complications: no major complications apparent
[2016-12-25] MEDS ORDERED: ATROPINE SULFATE 0.1 MG/ML 5ML SYR IV PRN (13:45)
[2016-12-25] MEDS ORDERED: EpHEDrine SULFATE INJ 50 MG/ML AMP IV PRN (13:45)
[2016-12-25] MEDS ORDERED: FUROSEMIDE INJ 40 MG in SYRINGE 0 ML IV ONE (14:00)
[2016-12-25] MEDS ORDERED: EPOETIN ALFA 20,000 UNITS/ML VIAL IV SCH (14:00)
--- NOTE | 2016-12-25 14:06 | DIAGNOSTIC IMAGING REPORT ---
DATE OF PROCEDURE: 12/25/2016 PREOPERATIVE DIAGNOSIS: Acute deep venous thrombosis with contraindications to anticoagulation. POSTOPERATIVE DIAGNOSIS: Acute deep venous thrombosis with contraindication to anticoagulation. PROCEDURE: Placement of IVC filter from right femoral vein approach. SURGEON: Dr. Anderson Hammond. JOURNEY LINEMAN: Dr. Claudine Luis. ANESTHESIA: Local. ESTIMATED BLOOD LOSS: 2 mL. CONDITION: Critically ill, but stable. COMPLICATIONS: None. INDICATIONS: Mrs. Anusha Rivera is an 86-year-old woman with multiple medical problems including respiratory failure requiring BiPAP, acute DVT, severe anemia. She has had several episodes of coffee-ground emesis concerning for upper GI bleed and has undergone several endoscopies. She was unable to tolerate anticoagulation and for this reason, it was recommended to undergo a placement of an IVC filter in setting of an acute DVT. The risks, benefits and alternatives were discussed with the patient and she consented to the procedure. DESCRIPTION OF PROCEDURE: The patient was taken to the hybrid OR and placed in the supine position. Bilateral groins were prepped and draped in the usual sterile fashion. A safety timeout was performed and the patient and procedure correctly identified. Ultrasound was used to identify the right femoral vein. Local anesthesia was injected in the skin overlying the right femoral vein. The vein was accessed using an 18 gauge needle under ultrasound guidance. An 0.035 Glidewire easily passed through the femoral vein and into the IVC. A 10-[place] dilator was used to dilate the tract. A Cook Celect IVC filter was chosen and the accompanying sheath placed into the IVC. A venocavogram was obtained to identify the position of the renal veins. The filter and delivery device was then passed through the sheath and deployed just below the right renal vein which was the lower of the 2 renal veins. Following deployment of the IVC filter, the sheath was removed and manual pressure was held over the right femoral vein access site for approximately 5 minutes. There appeared to be good hemostasis. A sterile dressing was applied. The patient tolerated the procedure well and there were no immediate complications. She was taken back to the ICU for further monitoring. Dr. Anderson Hammond was present for the entire procedure. I, Dr. Hammond was present and scrubed for the entire procedure. [facility]
--- NOTE | 2016-12-25 14:35 | Critical Care Progress Note ---
Critical Care Progress Note Date of Service Dec 25, 2016. ICU Day ICU Day Number: [address] oDlly Cardoso Subjective Breathing feels slightly better today Currently on BiPAP No events overnight Alisha Connelly and Travis at bedside Objective Constitutional: Vital signs as above were reviewed. General inspection: Mild distress, no pain Eyes: Pupils equal, round, and reactive to light. No proptosis. No photophobia. ENT: Mucous membranes are moist. Oropharynx is clear. Cardiovascular: Heart with a regular rate and rhythm. Pulses are palpable and symmetric in all 4 extremities. No pedal edema appreciated. Respiratory: Coarse breath sounds bilaterally with crackles in both lung meyer ; diminished breath sounds at the bases GI: Abdomen soft, nontender, nondistended. Normal active bowel sounds. No abdominal hernias appreciated. No rebound. No guarding. : No CVA tenderness appreciated. Extremities: Pitting edema bilaterally in lower extremities, up to knees, 2+, Left > Right Edema of the wrists Left > Right Integumentary:Multiple bruises from friable skin Neurological: Patient awake, alert, and oriented x 3. GCS 15, CAM-ICU negative Lymph: No cervical lymphadenopathy appreciated. Current SOFA Score SOFA Score Response (Comments) Value SaO2 / FIO2 142 - 220 2 Platelets (x10) < 150 1 Bilirubin (mg/dL) 1.2 - 1.9 1 Ashwin Coma Score 15 0 Level of Hypotension No Hypotension 0 Creatinine (mg/dL) 1.2 - 1.9 1 Total 5 Assessment & Plan (1) Acute respiratory failure with hypoxia and hypercapnia (2) Pneumonia (3) Congestive heart failure (4) Constipation (5) History of atrial fibrillation (6) Nephrotic syndrome (7) Left leg DVT (8) Anemia (9) Status post endoscopic retrograde cholangiopancreatography (10) Hypothyroidism (11) ANA PAULA (acute kidney injury) (12) Personal Hx Of Tia,& Cerebral Infarction W/Out Res Deficits NEUROLOGICAL - Patient mentating at baseline, CAM-ICU negative; GCS: 15, Alert and oriented x 3 CARDIOVASCULAR - MAP > 65; HR 90-100 and regular - Diastolic CHF: EF 45-50%; grade II diastolic dysfunction Severe Aortic Stenosis: cautious diuresis; avoid excessive preload reduction the setting of fixed afterload 40 mg IV Lasix today and then re-assess - No additional IV fluids indicated at this time RESPIRATORY Acute Hypoxemic Respiratory Distress - Continue Nebulizers q 6 hours - BiPAP 21/01, 60% FiO2 - Pneumonia: Continue Aztreonam, Clindamycin and Vancomycin, Day 2 - Hx of PE: Not a candidate for systemic anticoagulation due to possible bleed of unclear source; IVC filter indicated GASTROINTESTINAL - Diet: NPO as patient on BiPAP - GI Prophylaxis: Protonix 40 mg IV BID - Bowel regimen: Dulcolax, Miralax and Colace - S/p: ERCP 12/22; Colonoscopy 12/21; EGD 12/17 RENAL//ENDOCRINE - Fluid Balance Globally positive 5.4 ml Yesterday was -980 ml - Cr: 1.3 at baseline - Electrolytes: K 3.4; will be given 40 mg IV Lasix today; will supplement with 60 mEq KCL IV via central line Na 134; monitor BMP daily - BSG AC/HS while eating; q6h while fasting - Hypothyroidism: Continue Levothyroxine HEMATOLOGY/INFECTIOUS DISEASE Anemia of Unclear Etiology - Positive hemoccult with negative endoscopic evaluation - Seen by hematology; recommend starting Procrit; anemia suspected in-part due to CKD - CT yesterday negative for retroperitoneal hematoma - S/p 1 unit PRBC transfusion; Hb currently 7.7; monitor daily History of PE/Current left lower extremity DVT - Patient not a candidate for anticoagulation due to possible bleed of unclear source - Patient has consent to IVC filter; procedure completed this morning Pneumonia - Vancomycin/Clindamycin/Aztreonam Day 2 DVT Prophylaxis - IVC Filter LINES/IV ACCESS - PICC line consent obtained but PICC evaluation did not allow for good site for placement - Right IJ central line consent obtain and line inserted today 12/25/2016 - Right forearm 22 G CODE STATUS - Full Code DISPOSITION - OT/PT: Will order - Discharge plan uncertain at this time Resident Physician Supervision Note:/Handle Turner I have reviewed the VS, I/O, notes, meds, labs, micro, imaging and other reports. I have also interviewed and examined the patient. Her care was discussed in detail on multidisciplinary rounds today. Discussed with Dr. Montez and agree with findings and plan as documented in the note. The impression and plan are well documented by him.She has no specific complaints but FIO2 requirements on bipap have been variable - was up to 100% last night - back to 50% today. She is being diuresed more aggressively today and is being treated for pneumonia. CXR is not changed much and looks more like ARDS today than cardiogenic pulmonary edema. Unclear to me whether something else is driving her hypoxemia. Her GB is enlarged but she has no significant abdominal pain, denies N/V. LFT's improving. She has a history of hemoptysis and hypoxemic respiratory failure for which she was treated with steroids on 2 separate occasions - DAH vs vasculitis. Continue diuresis and consider reconsulting pulmonary. She is eating some but does not tolerate being off the bipap for very long. She is s/p IVC filter today - consider resuming heparin gtt without bolus if H/H remains stable. No source of bleeding identified on CT chest, abd, and pelvis yesterday. Holding on blood transfusion suggested by Heme as her hypooxemia worsened last night and diuresis is ongoing. Serial H/H are being followed. RIJ TLC placed today. Family updated by Dr. Montez. CC time excluding procedure 40 min. Documented By: Dolly Cardoso Consults & Procedures Consultants: GI Nephrology Hematology Cardiology Vascular Surgery General Surgery Pulmonary Procedures: IVC filter placement 12/25/2016 Right IJ Central Line placement 12/25/2016 ERCP 12/22/2016 Colonoscopy 12/21/2016 EGD 12/17/2016 Data Medications: Current Inpatient Medications Medications (Trade) Dose Ordered Sig/Phillip Route Start Time Stop Time Status Last Admin Dose Admin Docusate Sodium (coLACE CAP) 100 mg BID PO 12/14/16 20:00 01/13/17 20:59 12/23/16 20:07 100 MG Mupirocin (Bactroban 2% Oint) 1 appln DAILY EXT 12/15/16 08:00 01/14/17 07:59 12/25/16 08:46 1 APPLN Polyethylene (Miralax Powder Packet) 17 gm BID PO 12/15/16 20:00 01/14/17 08:59 Future hold 12/23/16 20:07 17 GM Morphine Sulfate (MoRPHine SULFATE INJ) 2 mg Q4H PRN IV 12/15/16 12:00 12/29/16 11:59 Ondansetron HCl (Zofran Inj) 4 mg Q8H PRN IV 12/16/16 19:30 01/15/17 19:29 12/19/16 16:05 4 MG Levothyroxine Sodium (Synthroid Tab) 75 mcg DAILYBB PO 12/18/16 06:30 01/17/17 06:29 12/25/16 05:48 75 MCG Bisacodyl (Dulcolax Supp) 10 mg HS PRN NM 12/18/16 15:30 01/13/17 16:59 Enteral Nutritional Formula (Boost Plus Vanilla) 1 can TID PO 12/22/16 20:00 01/21/17 19:59 12/23/16 20:07 1 CAN Clindamycin Phosphate 900 mg/ Dextrose 106 ml @ 100 mls/hr Q8H IV 12/24/16 02:00 12/31/16 01:59 12/25/16 12:28 100 MLS/HR Ipratropium [place] (Atrovent 0.02% 0.5MG/2.5ML Neb) 0.5 mg Q6R INH 12/24/16 03:00 01/23/17 02:59 12/25/16 07:13 0.5 MG Levalbuterol (Xopenex 1.25MG/ 0.5ML Neb) 1.25 mg Q6R INH 12/24/16 03:00 01/23/17 02:59 12/25/16 07:14 1.25 MG Ipratropium [place] (Atrovent 0.02% 0.5MG/2.5ML Neb) 0.5 mg Q2H PRN INH 12/23/16 22:45 01/22/17 22:44 Levalbuterol (Xopenex 1.25MG/ 0.5ML Neb) 1.25 mg Q2H PRN INH 12/23/16 22:45 01/22/17 22:44 Vancomycin HCl (Consult) 1 ea UD PRN N/A 12/24/16 00:30 01/23/17 00:29 Pantoprazole Sodium 40 mg/ Syringe 10 ml @ 5 mls/min BID IV 12/24/16 09:00 01/23/17 08:14 12/25/16 08:46 5 MLS/MIN Aztreonam 1000 mg/ Dextrose 110 ml @ 110 mls/hr DAILY@06,14,22 IV 12/24/16 14:00 12/30/16 13:59 12/25/16 05:48 110 MLS/HR Aztreonam (Consult) 1 ea UD PRN N/A 12/24/16 10:45 01/23/17 10:44 Epoetin Baljinder (Procrit Inj) 20,000 units TODAY@1400 IV 12/25/16 14:00 12/25/16 14:01 Ephedrine Sulfate (EpHEDrine SULFATE INJ) 5 mg Q5M PRN IV 12/25/16 13:45 12/25/16 18:45 Atropine Sulfate (Atropine Sulfate 0.1MG/Ml Inj) 0.5 mg Q1M PRN IV 12/25/16 13:45 12/25/16 18:45 Vital Signs: Date Time Temp Pulse Resp B/P (MAP) Pulse Ox O2 Delivery O2 Flow Rate FiO2 12/25/16 12:01 36.6 105 19 125/76 (92) 99 BiPAP 60 12/25/16 12:00 BiPAP 60 12/25/16 11:37 104 20 130/84 (99) 100 BiPAP 60 12/25/16 10:01 114 22 140/76 (97) 93 Oxymask 12.0 12/25/16 09:01 105 24 112/80 (91) 91 Oxymask 12.0 12/25/16 08:01 36.6 97 26 137/74 (95) 100 BiPAP 60 12/25/16 08:00 BiPAP 60 12/25/16 07:14 89 18 100 BiPAP/CPAP 70 12/25/16 07:14 100 60 12/25/16 07:01 96 19 133/87 (102) 100 BiPAP 60 12/25/16 06:00 96 27 123/98 (106) 100 BiPAP 60 12/25/16 05:34 100 60 12/25/16 04:00 36.4 99 24 128/71 (90) 100 BiPAP 60 12/25/16 04:00 100 BiPAP 60 12/25/16 02:05 95 18 100 BiPAP/CPAP 70 12/25/16 02:05 95 100 70 12/25/16 02:00 99 18 126/69 (88) 100 BiPAP 60 12/25/16 00:01 36.4 105 23 134/80 (98) 100 BiPAP 70 12/24/16 23:59 100 BiPAP 70 12/24/16 23:01 98 100 100 12/24/16 22:00 100 24 117/76 (90) 100 BiPAP 80 12/24/16 20:00 36.4 104 26 134/77 (96) 90 BiPAP 70 12/24/16 20:00 90 BiPAP 50 12/24/16 19:45 113 20 83 BiPAP/CPAP 70 12/24/16 19:45 104 83 70 12/24/16 18:09 36.5 102 22 132/72 (92) 89 BiPAP 50 12/24/16 18:00 99 50 12/24/16 16:00 BiPAP 50 12/24/16 16:00 91 22 120/85 (97) 97 BiPAP 50 12/24/16 14:59 91 20 92 Mask 10.0 12/24/16 14:29 37.1 92 24 94 12/24/16 14:00 87 22 105/68 (80) 97 BiPAP 50 Laboratory Results: Last 24 Hours Test 12/24/16 16:11 12/24/16 22:18 12/25/16 07:02 12/25/16 08:18 Hemoglobin 7.7 g/dL 8.1 g/dL 7.7 g/dL Hematocrit 23.8 % 24.0 % 24.4 % Sodium Level 136 mmol/L 134 mmol/L Potassium Level 2.9 mmol/L 3.4 mmol/L Chloride Level 101 mmol/L 100 mmol/L Carbon Dioxide Level 24 mmol/L 24 mmol/L Anion Gap 11.0 mmol/L 10.0 mmol/L Blood Urea Nitrogen 22 mg/dl 23 mg/dl Creatinine 1.20 mg/dl 1.30 mg/dl Est Creatinine Clear Calc Drug Dose 28.0 ml/min 29.0 ml/min Estimated GFR () 46.7 42.4 Estimated GFR (Non- 40.3 36.6 BUN/Creatinine Ratio 18.3 17.8 Random Glucose 159 mg/dl 143 mg/dl Calcium Level 7.4 mg/dl 7.4 mg/dl Phosphorus Level 3.9 mg/dl 3.3 mg/dl Troponin I 0.127 ng/ml 0.132 ng/ml Prothrombin Time 14.5 SECONDS Prothromb Time International Ratio 1.3 Activated Partial Thromboplast Time 33.9 SECONDS Partial Thromboplastin Ratio 1.3 Magnesium Level 1.8 mg/dl Total Bilirubin 1.9 mg/dl Aspartate Amino Transf (AST/SGOT) 55 U/L Alanine Aminotransferase (ALT/SGPT) 59 U/L Alkaline Phosphatase 309 U/L Total Protein 5.0 gm/dl Albumin 2.0 gm/dl Globulin 3.0 gm/dl Albumin/Globulin Ratio 0.7 Random Vancomycin Level 9.6 mcg/ml White Blood Count 12.21 K/uL Red Blood Count 2.74 M/uL Mean Corpuscular Volume 89.1 fL Mean Corpuscular Hemoglobin 28.1 pg Mean Corpuscular Hemoglobin Concent 31.6 g/dl Platelet Count 113 K/uL Mean Platelet Volume 10.1 fL Neutrophils (%) (Auto) 79.6 % Lymphocytes (%) (Auto) 8.8 % Monocytes (%) (Auto) 2.9 % Eosinophils (%) (Auto) 0.2 % Basophils (%) (Auto) 0.3 % Neutrophils # (Auto) 9.73 K/uL Lymphocytes # (Auto) 1.07 K/uL Monocytes # (Auto) 0.35 K/uL Eosinophils # (Auto) 0.02 K/uL Basophils # (Auto) 0.04 K/uL RDW Standard Deviation 46.5 fL RDW Coefficient of Variation 14.4 % Immature Granulocyte % (Auto) 8.2 % Immature Granulocyte # (Auto) 1.00 K/uL Nucleated RBC Absolute Count (auto) 0.03 K/uL Nucleated Red Blood Cells % 0.3 % Toxic Granulation 1+ Test 12/25/16 12:00 Problem Qualifiers (1) Congestive heart failure: Congestive heart failure type: diastolic
[2016-12-25] MEDS: POTASSIUM CHLR 20 MEQ / WTR 20 MEQ in PREMIXED WATER 100 ML IV SCH ×3 (14:44→18:37)
--- NOTE | 2016-12-25 15:05 | Gastroenterology Progress Note ---
Progress Note Date of Service: Dec 25, 2016 Subjective Pt evaluation today including: conversation w/ patient, conversation w/ family (children), physical exam, chart review, lab review, review of studies, review of inpatient medication list CC f/u anemia, constipation HPI Pt with no stools last 24 hours. Is on clear liquid diet only at present. No abd pain. Tolerating clears. Review of Systems Respiratory: + shortness of breath Cardiac: No chest pain Medications Current Inpatient Medications Medications (Trade) Dose Ordered Sig/Phillip Route Start Time Stop Time Status Last Admin Dose Admin Docusate Sodium (coLACE CAP) 100 mg BID PO 12/14/16 20:00 01/13/17 20:59 12/23/16 20:07 100 MG Mupirocin (Bactroban 2% Oint) 1 appln DAILY EXT 12/15/16 08:00 01/14/17 07:59 12/25/16 08:46 1 APPLN Polyethylene (Miralax Powder Packet) 17 gm BID PO 12/15/16 20:00 01/14/17 08:59 Future hold 12/23/16 20:07 17 GM Morphine Sulfate (MoRPHine SULFATE INJ) 2 mg Q4H PRN IV 12/15/16 12:00 12/29/16 11:59 Ondansetron HCl (Zofran Inj) 4 mg Q8H PRN IV 12/16/16 19:30 01/15/17 19:29 12/19/16 16:05 4 MG Levothyroxine Sodium (Synthroid Tab) 75 mcg DAILYBB PO 12/18/16 06:30 01/17/17 06:29 12/25/16 05:48 75 MCG Bisacodyl (Dulcolax Supp) 10 mg HS PRN RI 12/18/16 15:30 01/13/17 16:59 Enteral Nutritional Formula (Boost Plus Vanilla) 1 can TID PO 12/22/16 20:00 01/21/17 19:59 12/23/16 20:07 1 CAN Clindamycin Phosphate 900 mg/ Dextrose 106 ml @ 100 mls/hr Q8H IV 12/24/16 02:00 12/31/16 01:59 12/25/16 12:28 100 MLS/HR Ipratropium [place] (Atrovent 0.02% 0.5MG/2.5ML Neb) 0.5 mg Q6R INH 12/24/16 03:00 01/23/17 02:59 12/25/16 13:57 0.5 MG Levalbuterol (Xopenex 1.25MG/ 0.5ML Neb) 1.25 mg Q6R INH 12/24/16 03:00 01/23/17 02:59 12/25/16 13:57 1.25 MG Ipratropium [place] (Atrovent 0.02% 0.5MG/2.5ML Neb) 0.5 mg Q2H PRN INH 12/23/16 22:45 01/22/17 22:44 Levalbuterol (Xopenex 1.25MG/ 0.5ML Neb) 1.25 mg Q2H PRN INH 12/23/16 22:45 01/22/17 22:44 Vancomycin HCl (Consult) 1 [facility] PRN N/A 12/24/16 00:30 01/23/17 00:29 Pantoprazole Sodium 40 mg/ Syringe 10 ml @ 5 mls/min BID IV 12/24/16 09:00 01/23/17 08:14 12/25/16 08:46 5 MLS/MIN Aztreonam 1000 mg/ Dextrose 110 ml @ 110 mls/hr DAILY@,, IV 12/24/16 14:00 12/30/16 13:59 12/25/16 14:47 110 MLS/HR Aztreonam (Consult) 1 [facility] PRN N/A 12/24/16 10:45 01/23/17 10:44 Ephedrine Sulfate (EpHEDrine SULFATE INJ) 5 mg Q5M PRN IV 12/25/16 13:45 12/25/16 18:45 Atropine Sulfate (Atropine Sulfate 0.1MG/Ml Inj) 0.5 mg Q1M PRN IV 12/25/16 13:45 12/25/16 18:45 Potassium Chloride 20 meq/ Prmx 100 ml @ 50 mls/hr Q2H IV 12/25/16 14:00 12/25/16 19:59 12/25/16 14:44 50 MLS/HR Objective Vital Signs Date Time Temp Pulse Resp B/P (MAP) Pulse Ox O2 Delivery O2 Flow Rate FiO2 6/16/17 14:01 99 21 133/79 (97) 95 BiPAP 60 12/25/16 13:57 103 22 97 BiPAP/CPAP 60 12/25/16 13:46 113 23 122/85 (97) 97 BiPAP 60 12/25/16 13:31 98 20 119/82 (94) 95 BiPAP 60 12/25/16 13:30 100 22 130/75 (93) 95 BiPAP 60 12/25/16 13:24 36.4 98 24 127/79 (95) 92 BiPAP 60 12/25/16 12:01 36.6 105 19 125/76 (92) 99 BiPAP 60 12/25/16 12:00 BiPAP 60 12/25/16 11:37 104 20 130/84 (99) 100 BiPAP 60 12/25/16 10:01 114 22 140/76 (97) 93 Oxymask 12.0 12/25/16 09:01 105 24 112/80 (91) 91 Oxymask 12.0 12/25/16 08:01 36.6 97 26 137/74 (95) 100 BiPAP 60 12/25/16 08:00 BiPAP 60 12/25/16 07:14 89 18 100 BiPAP/CPAP 70 12/25/16 07:14 100 60 12/25/16 07:01 96 19 133/87 (102) 100 BiPAP 60 12/25/16 06:00 96 27 123/98 (106) 100 BiPAP 60 12/25/16 05:34 100 60 12/25/16 04:00 36.4 99 24 128/71 (90) 100 BiPAP 60 12/25/16 04:00 100 BiPAP 60 12/25/16 02:05 95 18 100 BiPAP/CPAP 70 12/25/16 02:05 95 100 70 12/25/16 02:00 99 18 126/69 (88) 100 BiPAP 60 12/25/16 00:01 36.4 105 23 134/80 (98) 100 BiPAP 70 12/24/16 23:59 100 BiPAP 70 12/24/16 23:01 98 100 100 12/24/16 22:00 100 24 117/76 (90) 100 BiPAP 80 12/24/16 20:00 36.4 104 26 134/77 (96) 90 BiPAP 70 6/15/17 20:00 90 BiPAP 50 12/24/16 19:45 113 20 83 BiPAP/CPAP 70 12/24/16 19:45 104 83 70 12/24/16 18:09 36.5 102 22 132/72 (92) 89 BiPAP 50 12/24/16 18:00 99 50 12/24/16 16:00 BiPAP 50 12/24/16 16:00 91 22 120/85 (97) 97 BiPAP 50 Physical Exam General Appearance: WD/WN, no apparent distress Respiratory/Chest: normal breath sounds, no respiratory distress Cardiovascular: no murmur Abdomen: normal bowel sounds, non tender, soft, no organomegaly, + distended ( mildly distended and tympanitic) Laboratory Results Last 24 Hours Test 12/24/16 16:11 12/24/16 22:18 12/25/16 07:02 12/25/16 08:18 Hemoglobin 7.7 g/dL 8.1 g/dL 7.7 g/dL Hematocrit 23.8 % 24.0 % 24.4 % Sodium Level 136 mmol/L 134 mmol/L Potassium Level 2.9 mmol/L 3.4 mmol/L Chloride Level 101 mmol/L 100 mmol/L Carbon Dioxide Level 24 mmol/L 24 mmol/L Anion Gap 11.0 mmol/L 10.0 mmol/L Blood Urea Nitrogen 22 mg/dl 23 mg/dl Creatinine 1.20 mg/dl 1.30 mg/dl Est Creatinine Clear Calc Drug Dose 28.0 ml/min 29.0 ml/min Estimated GFR () 46.7 42.4 Estimated GFR (Non- 40.3 36.6 BUN/Creatinine Ratio 18.3 17.8 Random Glucose 159 mg/dl 143 mg/dl Calcium Level 7.4 mg/dl 7.4 mg/dl Phosphorus Level 3.9 mg/dl 3.3 mg/dl Troponin I 0.127 ng/ml 0.132 ng/ml Prothrombin Time 14.5 SECONDS Prothromb Time International Ratio 1.3 Activated Partial Thromboplast Time 33.9 SECONDS Partial Thromboplastin Ratio 1.3 Magnesium Level 1.8 mg/dl Total Bilirubin 1.9 mg/dl Aspartate Amino Transf (AST/SGOT) 55 U/L Alanine Aminotransferase (ALT/SGPT) 59 U/L Alkaline Phosphatase 309 U/L Total Protein 5.0 gm/dl Albumin 2.0 gm/dl Globulin 3.0 gm/dl Albumin/Globulin Ratio 0.7 Random Vancomycin Level 9.6 mcg/ml White Blood Count 12.21 K/uL Red Blood Count 2.74 M/uL Mean Corpuscular Volume 89.1 fL Mean Corpuscular Hemoglobin 28.1 pg Mean Corpuscular Hemoglobin Concent 31.6 g/dl Platelet Count 113 K/uL Mean Platelet Volume 10.1 fL Neutrophils (%) (Auto) 79.6 % Lymphocytes (%) (Auto) 8.8 % Monocytes (%) (Auto) 2.9 % Eosinophils (%) (Auto) 0.2 % Basophils (%) (Auto) 0.3 % Neutrophils # (Auto) 9.73 K/uL Lymphocytes # (Auto) 1.07 K/uL Monocytes # (Auto) 0.35 K/uL Eosinophils # (Auto) 0.02 K/uL Basophils # (Auto) 0.04 K/uL RDW Standard Deviation 46.5 fL RDW Coefficient of Variation 14.4 % Immature Granulocyte % (Auto) 8.2 % Immature Granulocyte # (Auto) 1.00 K/uL Nucleated RBC Absolute Count (auto) 0.03 K/uL Nucleated Red Blood Cells % 0.3 % Toxic Granulation 1+ Test 12/25/16 12:00 Assessment and Plan CBD stones--stable post ERCP with removal 12/22/16 Esophagitis--continue protonix obstipation--recommend Miralax for maintenance and when acute issues of today resolved recommend increase Miralax to tid and larger amounts as needed. elevated LFTS from stones ---improving anemia--unclear etiology with CT chest/A/P Neg and no stools to indicate GI bleeding--appreciate Hematology evaluation Advance to mechanical soft diet.Discussed with DR Montez.
--- NOTE | 2016-12-25 15:11 | Pharmacy Progress Note ---
Pharmacy Abx Dose Short Note Date of Service Dec 25, 2016. Assessment & Plan Assessment 86 year old female receiving Vancomycin for treatment of pna Day # 2 of antimicrobial therapy. Plan Vancomycin * Random level this mornin.6 mcg/mL is subtherapeutic * Vancomycin 1000 mg IV x1 dose this am * Expect that Vancomycin 1gm IV q24h will be a suitable regimen for this patient , but will check another random level tomorrow morning to ensure that re-dose is appropriate. * Goal trough level for pulmonary infection : 15 to 20 mcg/mL * Random level ordered for: 12/26/16 with AM labs Pharmacy will continue to follow and will adjust dose/frequency as necessary. Thank you.
--- NOTE | 2016-12-25 16:39 | Progress Note ---
Subjective Date of Service: Dec 25, 2016. Subjective pt looks more stable clinically but CXR still looks to show CHF, pt for IVc filter and despite CT chest abd pelvis no signs of melena or explanation for anemia, transfused and will follow always must consider hemolysis given issues concerning for autoimmune disease in the past Problem List Medical Problems: (1) Acute kidney injury Status: Acute (2) Anemia Status: Acute (3) Chronic anemia Status: Acute (4) Colitis Status: Acute (5) Elevated troponin Status: Acute (6) Hypoxia Status: Acute Review of Systems Constitutional: + fatigue, No fever, No chills Respiratory: + shortness of breath, + dyspnea on exertion, No cough, No sputum Cardiac: + orthopnea, + PND, + edema, No chest pain Abdomen: No pain, No nausea, No vomiting, No diarrhea Musculoskeletal: No joint pain, No muscle pain, No swelling Female : No dysuria, No urinary frequency Psychiatric: No depression symptoms, No anhedonism Objective Vital Signs Date Time Temp Pulse Resp B/P (MAP) Pulse Ox O2 Delivery O2 Flow Rate FiO2 12/25/16 15:30 37.0 90 24 132/76 (94) 95 BiPAP 50 12/25/16 15:30 BiPAP 50 12/25/16 14:01 99 21 133/79 (97) 95 BiPAP 60 12/25/16 13:57 103 22 97 BiPAP/CPAP 60 12/25/16 13:46 113 23 122/85 (97) 97 BiPAP 60 12/25/16 13:31 98 20 119/82 (94) 95 BiPAP 60 12/25/16 13:30 100 22 130/75 (93) 95 BiPAP 60 12/25/16 13:24 36.4 98 24 127/79 (95) 92 BiPAP 60 12/25/16 12:01 36.6 105 19 125/76 (92) 99 BiPAP 60 12/25/16 12:00 BiPAP 60 12/25/16 11:37 104 20 130/84 (99) 100 BiPAP 60 12/25/16 10:01 114 22 140/76 (97) 93 Oxymask 12.0 12/25/16 09:01 105 24 112/80 (91) 91 Oxymask 12.0 12/25/16 08:01 36.6 97 26 137/74 (95) 100 BiPAP 60 12/25/16 08:00 BiPAP 60 12/25/16 07:14 89 18 100 BiPAP/CPAP 70 12/25/16 07:14 100 60 12/25/16 07:01 96 19 133/87 (102) 100 BiPAP 60 12/25/16 06:00 96 27 123/98 (106) 100 BiPAP 60 12/25/16 05:34 100 60 12/25/16 04:00 36.4 99 24 128/71 (90) 100 BiPAP 60 12/25/16 04:00 100 BiPAP 60 12/25/16 02:05 95 18 100 BiPAP/CPAP 70 12/25/16 02:05 95 100 70 12/25/16 02:00 99 18 126/69 (88) 100 BiPAP 60 12/25/16 00:01 36.4 105 23 134/80 (98) 100 BiPAP 70 12/24/16 23:59 100 BiPAP 70 12/24/16 23:01 98 100 100 12/24/16 22:00 100 24 117/76 (90) 100 BiPAP 80 12/24/16 20:00 36.4 104 26 134/77 (96) 90 BiPAP 70 12/24/16 20:00 90 BiPAP 50 12/24/16 19:45 113 20 83 BiPAP/CPAP 70 12/24/16 19:45 104 83 70 12/24/16 18:09 36.5 102 22 132/72 (92) 89 BiPAP 50 12/24/16 18:00 99 50 Physical Exam General Appearance: WD/WN, + moderate distress Neck: supple, + JVD Respiratory/Chest: + respiratory distress, + decreased breath sounds, + accessory muscle use, + rales Cardiovascular: regular rate, rhythm, + systolic murmur Abdomen: normal bowel sounds, non tender, soft Extremities: no pedal edema, no calf tenderness Neurologic/Psychiatric: alert, oriented x 3 Laboratory Results Last 24 Hours Test 12/24/16 22:18 12/25/16 07:02 12/25/16 08:18 12/25/16 12:00 Hemoglobin 8.1 g/dL 7.7 g/dL Hematocrit 24.0 % 24.4 % Troponin I 0.132 ng/ml Prothrombin Time 14.5 SECONDS Prothromb Time International Ratio 1.3 Activated Partial Thromboplast Time 33.9 SECONDS Partial Thromboplastin Ratio 1.3 Sodium Level 134 mmol/L Potassium Level 3.4 mmol/L Chloride Level 100 mmol/L Carbon Dioxide Level 24 mmol/L Anion Gap 10.0 mmol/L Blood Urea Nitrogen 23 mg/dl Creatinine 1.30 mg/dl Est Creatinine Clear Calc Drug Dose 29.0 ml/min Estimated GFR () 42.4 Estimated GFR (Non- 36.6 BUN/Creatinine Ratio 17.8 Random Glucose 143 mg/dl Calcium Level 7.4 mg/dl Phosphorus Level 3.3 mg/dl Magnesium Level 1.8 mg/dl Total Bilirubin 1.9 mg/dl Aspartate Amino Transf (AST/SGOT) 55 U/L Alanine Aminotransferase (ALT/SGPT) 59 U/L Alkaline Phosphatase 309 U/L Total Protein 5.0 gm/dl Albumin 2.0 gm/dl Globulin 3.0 gm/dl Albumin/Globulin Ratio 0.7 Random Vancomycin Level 9.6 mcg/ml White Blood Count 12.21 K/uL Red Blood Count 2.74 M/uL Mean Corpuscular Volume 89.1 fL Mean Corpuscular Hemoglobin 28.1 pg Mean Corpuscular Hemoglobin Concent 31.6 g/dl Platelet Count 113 K/uL Mean Platelet Volume 10.1 fL Neutrophils (%) (Auto) 79.6 % Lymphocytes (%) (Auto) 8.8 % Monocytes (%) (Auto) 2.9 % Eosinophils (%) (Auto) 0.2 % Basophils (%) (Auto) 0.3 % Neutrophils # (Auto) 9.73 K/uL Lymphocytes # (Auto) 1.07 K/uL Monocytes # (Auto) 0.35 K/uL Eosinophils # (Auto) 0.02 K/uL Basophils # (Auto) 0.04 K/uL RDW Standard Deviation 46.5 fL RDW Coefficient of Variation 14.4 % Immature Granulocyte % (Auto) 8.2 % Immature Granulocyte # (Auto) 1.00 K/uL Nucleated RBC Absolute Count (auto) 0.03 K/uL Nucleated Red Blood Cells % 0.3 % Toxic Granulation 1+ Test 12/25/16 12:04 Bedside Glucose 113 mg/dl Assessment and Plan 86 F with acute diastolic heart failure with a history of chronic diastolic heart failure with severe , mod MR, CKD3 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 and recent pulmonary hemorrhage with discussion of possible vascultitis of lung, Thrombophilia with acute DVT and previoius PE x 2 even on coumadin, , seizure d/o, h/o cerebellar CVA acute diastolic heart failure from severe , in past discussed TaV[facility] and felt not to be good candidate, diuresis ECHO with no new changes, acute blood loss anemia, on anticoagulation, no over clues for blood loss consider CT negative for retroperitoneal hemorrhage, transfused 2 units, stopped heparin, placed IVC filter 12/25 as has acute LLE DVT, if persists consider hemolysis, also is on ppi earlier in hospital stay, abdominal pain and anemia,s/p colonoscopy on 12/[address] Macias for disimpaction. - Had hematemesis/coffee ground emesis on 12/17, heparin gtt(for acute DVT) held, then restarted - With h/o recent GI bleed on previous admission - EGD completed on 12/17 showing LA Grade C reflux esophagitis, hiatal hernia and few gastric polyps. - ERCP completed on 12/22 with gallstone removal-sphincterotomy, jaundice improving Elevated bilirubin Completed EUS/ERCP 12/[address] Fischer. - cefoxitime d/t pts allergies to will cover for cholecystitis - attempt a 10 day course Urinary retention secondary to constipation-pt cut her Hu with scissors with episode of delirium-> retention resolved with Hu replaced 12/19 CKD stage III, -ANA PAULA resolved Nephrology helping to manage electrolytes and fluid balance Dispo- Full code PT's son, Travis, and my PA Shaunna, discussed if he would want aggressive measures taken if the pt was diagnosed with something like a colon cancer, and he said no, that he would not be agreeable to surger, chemo, radiation, or other extensive workup.
[2016-12-25 18:45] LABS: HEMATOCRIT 23.7 % (37-47)
[2016-12-25 19:04] LABS: BUN/CREATININE RATIO 19.8 (10-20); CALCIUM 7.5 mg/dl (8.5-10.1); CREATININE 1.1 mg/dl (0.60-1.20); POTASSIUM 3.7 mmol/L (3.5-5.1)
[2016-12-26] VITALS (21 sets, daily range): BP systolic 116–150; BP diastolic 76–96; PULSE 94–116; TEMP 36.3–36.5; O2SAT 90–99
[2016-12-26] MEDS: CLINDAMYCIN IV 900 MG in DEXTROSE 5% ADD-VANTAGE 100ML 100 ML IV SCH ×4 (01:32→21:26)
[2016-12-26] MEDS: LEVALBUTEROL 1.25MG/0.5ML NEB INH SCH ×4 (03:25→19:28)
[2016-12-26] MEDS: IPRATROPIUM BROMIDE NEB SOLN 0.02% 2.5 ML VIAL INH SCH ×4 (03:25→19:28)
[2016-12-26] MEDS: AZTREONAM IV 1,000 MG in DEXTROSE 5% 100ML IV SCH ×4 (05:27→21:29)
[2016-12-26] MEDS: LEVOTHYROXINE 75 MCG TAB PO SCH ×2 (05:27→21:27)
[2016-12-26 06:00] LABS: HEMATOCRIT 25.4 % (37-47); MEAN CELL VOLUME 90.4 fL (80-100); MEAN CORPUSCULAR HEMOGLOBIN 29.5 pg (25-34); MEAN CORPUSCULAR HGB CONC 32.7 g/dl (32-36); MEAN PLATELET VOLUME 10.7 fL (7.4-10.4); PLATELET COUNT 182 K/uL (130-400); RED BLOOD COUNT 2.81 M/uL (4.2-5.4); WHITE BLOOD COUNT 20.77 K/uL (4.8-10.8)
[2016-12-26 06:13] LABS: INR 1.7 (0.9-1.1); PARTIAL THROMBOPLASTIN RATIO 1.7; PROTHROMBIN TIME (PATIENT) 18.3 SECONDS (9.0-12.0)
[2016-12-26 06:24] LABS: COMPLETE YES; DOHLE BODIES 1+; EOSINOPHIL % 0.9 %; LYMPH ABS # 1.81 K/uL (1.2-3.4); LYMPHOCYTE % 8.7 %; META ABS # 0.54 K/uL (0-0); METAMYELOCYTE % 2.6 %; MYELOCYTE % 2.6 %; NEUTROPHILS % 83.5 %; TOXIC GRANULATION 1+
[2016-12-26 06:29] LABS: BUN/CREATININE RATIO 20.4 (10-20); CALCIUM 7.8 mg/dl (8.5-10.1); CREATININE 1.2 mg/dl (0.60-1.20); MAGNESIUM 1.9 mg/dl (1.8-2.4); PHOSPHORUS 3.5 mg/dl (2.5-4.9)
--- NOTE | 2016-12-26 07:26 | DIAGNOSTIC IMAGING REPORT ---
CHEST ONE VIEW PORTABLE CLINICAL HISTORY: f/u infiltrates dyspnea COMPARISON STUDY: 12/25/2016 FINDINGS: Findings of pulmonary edema unchanged in the prior study. Central catheters. Vena cava. Trace pleural fluid both lung bases. IMPRESSION: Pulmonary edema stable from the prior study. Small bilateral pleural effusions. Electronically signed by: Kirill Escoto M.D. 12/26/2016 7:24 AM Dictated Date/Time: 12/26/2016 7:24 AM
[2016-12-26] MEDS: MUPIROCIN 2% OINT 22 GM TUBE EXT SCH (08:00)
[2016-12-26] MEDS: DOCUSATE SODIUM 100 MG CAP PO SCH ×2 (08:01→21:00)
[2016-12-26] MEDS: POLYETHYLENE (MIRALAX) 17 GM PACK PO SCH ×2 (08:01→21:00)
[2016-12-26] MEDS: BOOST PLUS VANILLA PO SCH ×2 (08:02)
[2016-12-26] MEDS: PANTOprazole INJ 40 MG in SYRINGE 0 ML IV SCH ×2 (08:19→21:00)
[2016-12-26] MEDS ORDERED: FUROSEMIDE 40 MG/4 ML VIAL IV STA (09:04)
[2016-12-26] MEDS ORDERED: BISACODYL 10 MG SUPP PR STA (09:04)
[2016-12-26] MEDS ORDERED: METHYLPREDNISOLONE 125 MG VIAL IV STA (09:08)
[2016-12-26] MEDS ORDERED: BISACODYL 10 MG SUPP PR PRN (09:15)
[2016-12-26] MEDS ORDERED: METHYLPREDNISOLONE 125 MG in SYRINGE 0 ML IV ONE (09:45)
[2016-12-26] MEDS ORDERED: FUROSEMIDE INJ 40 MG in SYRINGE 0 ML IV ONE (09:45)
--- NOTE | 2016-12-26 09:47 | Pharmacy Progress Note ---
Pharmacy Antibiotic Prog Note Date of Service Dec 26, 2016. Subjective The patient is currently receiving VANCOMYCIN IV empirically based on levels. The patient is currently on day # 3 of VANCOMYCIN IV therapy. Objective Height (Feet): 5 Height (Inches): 4.00 Weight (Kilograms): 67.100 Levels: Item Value Date Time Random Vancomycin Level 14.4 mcg/ml 12/26/16 0535 Random Vancomycin Level 9.6 mcg/ml 12/25/16 0702 Lab Results (24hrs): Test 12/25/16 12:00 12/25/16 16:36 12/25/16 17:46 12/25/16 20:43 Bedside Glucose 110 mg/dl (70-90) 102 mg/dl (70-90) Hemoglobin 7.8 g/dL (12.0-16.0) Hematocrit 23.7 % (37-47) Sodium Level 137 mmol/L (136-145) Potassium Level 3.7 mmol/L (3.5-5.1) Chloride Level 102 mmol/L (98-107) Carbon Dioxide Level 26 mmol/L (21-32) Anion Gap 9.0 mmol/L (3-11) Blood Urea Nitrogen 22 mg/dl (7-18) Creatinine 1.10 mg/dl (0.60-1.20) Est Creatinine Clear Calc Drug Dose 34.2 ml/min Estimated GFR () 51.9 Estimated GFR (Non- 44.8 BUN/Creatinine Ratio 19.8 (10-20) Random Glucose 92 mg/dl (70-99) Calcium Level 7.5 mg/dl (8.5-10.1) Test 12/26/16 05:35 12/26/16 09:04 12/26/16 09:08 12/26/16 09:27 White Blood Count 20.77 K/uL (4.8-10.8) Red Blood Count 2.81 M/uL (4.2-5.4) Hemoglobin 8.3 g/dL (12.0-16.0) Hematocrit 25.4 % (37-47) Mean Corpuscular Volume 90.4 fL (80-100) Mean Corpuscular Hemoglobin 29.5 pg (25-34) Mean Corpuscular Hemoglobin Concent 32.7 g/dl (32-36) Platelet Count 182 K/uL (130-400) Mean Platelet Volume 10.7 fL (7.4-10.4) RDW Standard Deviation 49.0 fL (36.4-46.3) RDW Coefficient of Variation 14.8 % (11.5-14.5) Nucleated RBC Absolute Count (auto) 0.08 K/uL (0-0) Neutrophils % (Manual) 83.5 % Lymphocytes % (Manual) 8.7 % Monocytes % (Manual) 1.7 % Eosinophils % (Manual) 0.9 % Metamyelocytes % 2.6 % Myelocytes % 2.6 % Nucleated Red Blood Cells % 0.4 % Neutrophils # (Manual) 17.34 K/uL (1.4-6.5) Total Absolute Neutrophils 17.34 K/uL (1.4-6.5) Lymphocytes # (Manual) 1.81 K/uL (1.2-3.4) Total Absolute Lymphocytes 1.81 K/uL (1.2-3.4) Monocytes # (Manual) 0.35 K/uL (0.11-0.59) Eosinophils # (Manual) 0.19 K/uL (0-0.5) Metamyelocytes # 0.54 K/uL (0-0) Myelocytes # 0.54 K/uL (0-0) Toxic Granulation 1+ Dohle Bodies 1+ Prothrombin Time 18.3 SECONDS (9.0-12.0) Prothromb Time International Ratio 1.7 (0.9-1.1) Activated Partial Thromboplast Time 43.6 SECONDS (21.0-31.0) Partial Thromboplastin Ratio 1.7 Sodium Level 137 mmol/L (136-145) Potassium Level 4.0 mmol/L (3.5-5.1) Chloride Level 101 mmol/L (98-107) Carbon Dioxide Level 24 mmol/L (21-32) Anion Gap 12.0 mmol/L (3-11) Blood Urea Nitrogen 25 mg/dl (7-18) Creatinine 1.20 mg/dl (0.60-1.20) Est Creatinine Clear Calc Drug Dose 31.4 ml/min Estimated GFR () 46.7 Estimated GFR (Non- 40.3 BUN/Creatinine Ratio 20.4 (10-20) Random Glucose 112 mg/dl (70-99) Calcium Level 7.8 mg/dl (8.5-10.1) Phosphorus Level 3.5 mg/dl (2.5-4.9) Magnesium Level 1.9 mg/dl (1.8-2.4) Random Vancomycin Level 14.4 mcg/ml Test 12/26/16 09:35 Recent Pertinent Medications Item Value Date Time Aztreonam 1000 mg/ 110 ml @ 110 mls/hr 12/24/16 1400 Dextrose DAILY@06,14,22/IV 12/26/16 0527 Clindamycin 106 ml @ 100 mls/hr 12/24/16 0200 Phosphate 900 mg/ Q8H/IV 12/26/16 0819 Dextrose Assessment & Plan 86yo female receiving VANC / AZACTAM / CLINDA for PNA. Renal function is relatively stable (SCr 1.1 - 1.3). VANCOMYCIN: * Patient received VANCOMYCIN 1000mg IV x 1 dose yesterday @ 0846. * Random VANCOMYCIN level drawn this am @ 0535 = 14.4 mcg/mL. * This drug level is nearly therapeutic. * Will continue VANCOMYCIN 1000mg IV every 24 hours. * Goal trough level estimate: between 15 - 20 mcg/mL. * Will recheck a trough level on . Pharmacy will continue to follow and will adjust dose/frequency as necessary. Thank you
--- NOTE | 2016-12-26 10:00 | Gastroenterology Progress Note ---
Progress Note Date of Service: Dec 26, 2016 Subjective Pt evaluation today including: conversation w/ patient, physical exam, chart review, lab review, review of studies, review of inpatient medication list CC f/u constipation, CBD stones HPI Pt denies abd pain. Tolerating some solid diet. No stools last 24 hours. Review of Systems Respiratory: + shortness of breath Cardiac: No chest pain Medications Current Inpatient Medications Medications (Trade) Dose Ordered Sig/Phillip Route Start Time Stop Time Status Last Admin Dose Admin Docusate Sodium (coLACE CAP) 100 mg BID PO 12/14/16 20:00 01/13/17 20:59 12/26/16 08:01 100 MG Mupirocin (Bactroban 2% Oint) 1 appln DAILY EXT 12/15/16 08:00 01/14/17 07:59 12/26/16 08:00 1 APPLN Polyethylene (Miralax Powder Packet) 17 gm BID PO 12/15/16 20:00 01/14/17 08:59 Future hold 12/26/16 08:01 17 GM Morphine Sulfate (MoRPHine SULFATE INJ) 2 mg Q4H PRN IV 12/15/16 12:00 12/29/16 11:59 Ondansetron HCl (Zofran Inj) 4 mg Q8H PRN IV 12/16/16 19:30 01/15/17 19:29 12/19/16 16:05 4 MG Levothyroxine Sodium (Synthroid Tab) 75 mcg DAILYBB PO 12/18/16 06:30 01/17/17 06:29 12/26/16 05:27 75 MCG Enteral Nutritional Formula (Boost Plus Vanilla) 1 can TID PO 12/22/16 20:00 01/21/17 19:59 12/26/16 08:02 1 CAN Clindamycin Phosphate 900 mg/ Dextrose 106 ml @ 100 mls/hr Q8H IV 12/24/16 02:00 12/31/16 01:59 12/26/16 08:19 100 MLS/HR Ipratropium [place] (Atrovent 0.02% 0.5MG/2.5ML Neb) 0.5 mg Q6R INH 12/24/16 03:00 01/23/17 02:59 12/26/16 08:07 0.5 MG Levalbuterol (Xopenex 1.25MG/ 0.5ML Neb) 1.25 mg Q6R INH 12/24/16 03:00 01/23/17 02:59 12/26/16 08:07 1.25 MG Ipratropium [place] (Atrovent 0.02% 0.5MG/2.5ML Neb) 0.5 mg Q2H PRN INH 12/23/16 22:45 01/22/17 22:44 Levalbuterol (Xopenex 1.25MG/ 0.5ML Neb) 1.25 mg Q2H PRN INH 12/23/16 22:45 01/22/17 22:44 Vancomycin HCl (Consult) 1 ea UD PRN N/A 12/24/16 00:30 01/23/17 00:29 Pantoprazole Sodium 40 mg/ Syringe 10 ml @ 5 mls/min BID IV 12/24/16 09:00 01/23/17 08:14 12/26/16 08:19 5 MLS/MIN Aztreonam 1000 mg/ Dextrose 110 ml @ 110 mls/hr DAILY@,,22 IV 12/24/16 14:00 12/30/16 13:59 12/26/16 05:27 110 MLS/HR Aztreonam (Consult) 1 UD PRN N/A 12/24/16 10:45 01/23/17 10:44 Bisacodyl (Dulcolax Supp) 10 mg DAILY PRN OR 12/26/16 09:15 01/25/17 09:14 Methylprednisolone Sodium Succinate 60 mg/Syringe 0.96 ml @ 1.5 mls/min Q6H IV 12/26/16 16:00 01/25/17 09:14 Vancomycin HCl 1000 mg/Sodium Chloride 270 ml @ 125 mls/hr Q24H IV 12/26/16 10:00 01/02/17 23:59 Objective Vital Signs Date Time Temp Pulse Resp B/P (MAP) Pulse Ox O2 Delivery O2 Flow Rate FiO2 12/26/16 08:09 103 96 50 12/26/16 08:07 103 22 96 BiPAP/CPAP 50 12/26/16 06:00 104 24 140/92 (108) 96 BiPAP 50 12/26/16 05:24 116 92 40 12/26/16 04:00 92 BiPAP 40 12/26/16 04:00 36.3 104 25 142/96 (111) 92 BiPAP 40 12/26/16 03:26 102 26 91 BiPAP/CPAP 40 12/26/16 02:00 94 16 143/79 (100) 93 BiPAP 40 12/26/16 00:01 36.3 95 22 129/84 (99) 93 BiPAP 40 12/25/16 23:59 94 BiPAP 40 12/25/16 23:17 94 92 40 12/25/16 22:01 93 21 136/76 (96) 95 12/25/16 22:00 94 22 94 12/25/16 21:28 37.0 92 22 139/76 (97) 95 BiPAP 40 12/25/16 21:01 92 22 139/76 (97) 95 12/25/16 21:00 104 17 95 12/25/16 20:01 102 23 130/81 (97) 96 12/25/16 20:00 95 21 97 12/25/16 19:45 37.0 90 22 137/77 (97) 95 BiPAP 40 12/25/16 19:30 BiPAP 40 12/25/16 19:08 103 24 91 BiPAP/CPAP 40 12/25/16 19:08 99 91 40 12/25/16 19:01 100 23 137/77 (97) 90 12/25/16 19:00 97 22 90 17 18:01 110 21 136/75 (95) 91 12/25/16 18:00 104 22 90 17 17:01 93 23 126/81 (96) 94 17 17:00 88 19 90 1617 16:01 95 23 127/81 (96) 94 1617 16:00 91 22 97 16/17 15:31 95 20 132/76 (94) 94 1617 15:30 37.0 90 24 132/76 (94) 95 BiPAP 50 16/17 15:30 BiPAP 50 16/17 15:01 107 22 135/70 (91) 91 1617 15:00 103 22 92 16/17 14:01 99 21 133/79 (97) 95 BiPAP 60 16/17 13:57 103 22 97 BiPAP/CPAP 60 12/25/16 13:46 113 23 122/85 (97) 97 BiPAP 60 12/25/16 13:31 98 20 119/82 (94) 95 BiPAP 60 12/25/16 13:30 100 22 130/75 (93) 95 BiPAP 60 12/25/16 13:24 36.4 98 24 127/79 (95) 92 BiPAP 60 12/25/16 12:01 36.6 105 19 125/76 (92) 99 BiPAP 60 12/25/16 12:00 BiPAP 60 12/25/16 11:37 104 20 130/84 (99) 100 BiPAP 60 12/25/16 10:01 114 22 140/76 (97) 93 Oxymask 12.0 Physical Exam General Appearance: WD/WN, no apparent distress Cardiovascular: no murmur Abdomen: normal bowel sounds, non tender, soft, no organomegaly Laboratory Results Last 24 Hours Test 12/25/16 12:00 12/25/16 12:04 12/25/16 16:36 12/25/16 17:46 Bedside Glucose 113 mg/dl 110 mg/dl Hemoglobin 7.8 g/dL Hematocrit 23.7 % Sodium Level 137 mmol/L Potassium Level 3.7 mmol/L Chloride Level 102 mmol/L Carbon Dioxide Level 26 mmol/L Anion Gap 9.0 mmol/L Blood Urea Nitrogen 22 mg/dl Creatinine 1.10 mg/dl Est Creatinine Clear Calc Drug Dose 34.2 ml/min Estimated GFR () 51.9 Estimated GFR (Non- 44.8 BUN/Creatinine Ratio 19.8 Random Glucose 92 mg/dl Calcium Level 7.5 mg/dl Test 12/25/16 20:43 12/26/16 05:35 12/26/16 09:04 12/26/16 09:08 Bedside Glucose 102 mg/dl White Blood Count 20.77 K/uL Red Blood Count 2.81 M/uL Hemoglobin 8.3 g/dL Hematocrit 25.4 % Mean Corpuscular Volume 90.4 fL Mean Corpuscular Hemoglobin 29.5 pg Mean Corpuscular Hemoglobin Concent 32.7 g/dl Platelet Count 182 K/uL Mean Platelet Volume 10.7 fL RDW Standard Deviation 49.0 fL RDW Coefficient of Variation 14.8 % Nucleated RBC Absolute Count (auto) 0.08 K/uL Neutrophils % (Manual) 83.5 % Lymphocytes % (Manual) 8.7 % Monocytes % (Manual) 1.7 % Eosinophils % (Manual) 0.9 % Metamyelocytes % 2.6 % Myelocytes % 2.6 % Nucleated Red Blood Cells % 0.4 % Neutrophils # (Manual) 17.34 K/uL Total Absolute Neutrophils 17.34 K/uL Lymphocytes # (Manual) 1.81 K/uL Total Absolute Lymphocytes 1.81 K/uL Monocytes # (Manual) 0.35 K/uL Eosinophils # (Manual) 0.19 K/uL Metamyelocytes # 0.54 K/uL Myelocytes # 0.54 K/uL Toxic Granulation 1+ Dohle Bodies 1+ Prothrombin Time 18.3 SECONDS Prothromb Time International Ratio 1.7 Activated Partial Thromboplast Time 43.6 SECONDS Partial Thromboplastin Ratio 1.7 Sodium Level 137 mmol/L Potassium Level 4.0 mmol/L Chloride Level 101 mmol/L Carbon Dioxide Level 24 mmol/L Anion Gap 12.0 mmol/L Blood Urea Nitrogen 25 mg/dl Creatinine 1.20 mg/dl Est Creatinine Clear Calc Drug Dose 31.4 ml/min Estimated GFR () 46.7 Estimated GFR (Non- 40.3 BUN/Creatinine Ratio 20.4 Random Glucose 112 mg/dl Calcium Level 7.8 mg/dl Phosphorus Level 3.5 mg/dl Magnesium Level 1.9 mg/dl Random Vancomycin Level 14.4 mcg/ml Test 12/26/16 09:27 12/26/16 09:35 Assessment and Plan elevated WBC--new discussed with DR Cardoso--check LFTS and if bili not worsening it is not cholangits but cholecysitis is in the differential with dilated GB on CT and non vis of GB on HIDA on admit. If not a surgical candidate then recommend cholecystostomy tube. Discussed with DR Cardoso and DR Jarvis who are going to discuss with radiology about availability. CBD stones--stable post ERCP with removal 12/22/16 Esophagitis--continue protonix obstipation--recommend Miralax for maintenance and when acute issues of today resolved recommend increase Miralax to tid and larger amounts as needed. elevated LFTS from stones ---repeat today anemia--unclear etiology with CT chest/A/P Neg and no stools to indicate GI bleeding--appreciate Hematology evaluation
[2016-12-26] MEDS: VANCOMYCIN INJ 1,000 MG in SODIUM CHLORIDE 0.9% 250ML 250 ML IV SCH (10:02)
--- NOTE | 2016-12-26 10:08 | Nephrology Progress Note ---
Nephrology Progress Note Date of Service Dec 26, 2016. Chief Complaint Follow up evaluation of this patient admitted w/ acute on chronic kidney injury and electrolyte disorders in the setting of CBD stone and anemia Subjective Ms. Rivera was seen & examined in the ICU this morning. She is awake on nasal BiPAP. She complains of fatigue but denies hemoptysis or melena. Hu catheter remains in place draining blood tinged urine. Review of Systems Constitutional: No fever Cardiovascular: No chest pain Respiratory: + dyspnea at rest Abdomen: No pain, No nausea, No vomiting Extremities: No leg edema A complete review of systems was performed. Pertinent positives are noted above. All other systems are negative. Vital Signs Last 8 Hrs Date Time Temp Pulse Resp B/P (MAP) Pulse Ox O2 Delivery O2 Flow Rate FiO2 12/26/16 08:09 103 96 50 12/26/16 08:07 103 22 96 BiPAP/CPAP 50 12/26/16 06:00 104 24 140/92 (108) 96 BiPAP 50 12/26/16 05:24 116 92 40 12/26/16 04:00 92 BiPAP 40 12/26/16 04:00 36.3 104 25 142/96 (111) 92 BiPAP 40 12/26/16 03:26 102 26 91 BiPAP/CPAP 40 Last Recorded Weight Weight (Kilograms): 67.100 Physical Exam General Appearance: + thin (frail appearing) Head: atraumatic (temporal muscle wasting) Eyes: PERRL Neck: no adenopathy Respiratory/Chest: no accessory muscle use, + crackles Cardiovascular: + tachycardia Abdomen/GI: non tender, soft Extremities/Musculoskelatal: + pedal edema (1+ pretibial edema) Neurologic/Psych: alert Family History Heart disease Social History Drug Use: none Marital Status: Housing Status: lives with family 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 Laboratory Results Past 24 Hours 12/25/16 17:46 12/26/16 05:35 Red Blood Count 2.81, Mean Corpuscular Volume 90.4, Mean Corpuscular Hemoglobin 29.5, Mean Corpuscular Hemoglobin Concent 32.7, Mean Platelet Volume 10.7 12/25/16 17:46 12/26/16 05:35 Test 12/25/16 12:00 12/25/16 12:04 12/25/16 16:36 12/25/16 17:46 Bedside Glucose 113 mg/dl (70-90) 110 mg/dl (70-90) Anion Gap 9.0 mmol/L (3-11) Est Creatinine Clear Calc Drug Dose 34.2 ml/min Estimated GFR () 51.9 Estimated GFR (Non- 44.8 BUN/Creatinine Ratio 19.8 (10-20) Calcium Level 7.5 mg/dl (8.5-10.1) Test 12/25/16 20:43 12/26/16 05:35 12/26/16 09:08 12/26/16 09:53 Bedside Glucose 102 mg/dl (70-90) White Blood Count 20.77 K/uL (4.8-10.8) Red Blood Count 2.81 M/uL (4.2-5.4) Hemoglobin 8.3 g/dL (12.0-16.0) Hematocrit 25.4 % (37-47) Mean Corpuscular Volume 90.4 fL (80-100) Mean Corpuscular Hemoglobin 29.5 pg (25-34) Mean Corpuscular Hemoglobin Concent 32.7 g/dl (32-36) Platelet Count 182 K/uL (130-400) Mean Platelet Volume 10.7 fL (7.4-10.4) RDW Standard Deviation 49.0 fL (36.4-46.3) RDW Coefficient of Variation 14.8 % (11.5-14.5) Nucleated RBC Absolute Count (auto) 0.08 K/uL (0-0) Neutrophils % (Manual) 83.5 % Lymphocytes % (Manual) 8.7 % Monocytes % (Manual) 1.7 % Eosinophils % (Manual) 0.9 % Metamyelocytes % 2.6 % Myelocytes % 2.6 % Nucleated Red Blood Cells % 0.4 % Neutrophils # (Manual) 17.34 K/uL (1.4-6.5) Total Absolute Neutrophils 17.34 K/uL (1.4-6.5) Lymphocytes # (Manual) 1.81 K/uL (1.2-3.4) Total Absolute Lymphocytes 1.81 K/uL (1.2-3.4) Monocytes # (Manual) 0.35 K/uL (0.11-0.59) Eosinophils # (Manual) 0.19 K/uL (0-0.5) Metamyelocytes # 0.54 K/uL (0-0) Myelocytes # 0.54 K/uL (0-0) Toxic Granulation 1+ Dohle Bodies 1+ Prothrombin Time 18.3 SECONDS (9.0-12.0) Prothromb Time International Ratio 1.7 (0.9-1.1) Activated Partial Thromboplast Time 43.6 SECONDS (21.0-31.0) Partial Thromboplastin Ratio 1.7 Anion Gap 12.0 mmol/L (3-11) Est Creatinine Clear Calc Drug Dose 31.4 ml/min Estimated GFR () 46.7 Estimated GFR (Non- 40.3 BUN/Creatinine Ratio 20.4 (10-20) Calcium Level 7.8 mg/dl (8.5-10.1) Phosphorus Level 3.5 mg/dl (2.5-4.9) Magnesium Level 1.9 mg/dl (1.8-2.4) Random Vancomycin Level 14.4 mcg/ml Allergies Coded Allergies: Doxycycline (Verified Allergy, Intermediate, RASH, 12/21/16) Trimethoprim (Verified Allergy, Intermediate, RASH, 12/21/16) Adhesives (Verified Allergy, Unknown, HAD RXN TO H[employer] PATCHES, ) Amoxicillin (Verified Allergy, Unknown, RASH, 12/21/16) Atorvastatin (Verified Allergy, Unknown, UNKNOWN, 12/21/16) Carbamazepine (Verified Allergy, Unknown, 12/21/16) Hydantoins (Verified Allergy, Unknown, 12/21/16) Levofloxacin (Verified Allergy, Unknown, UNKNOWN, 12/21/16) Penicillins (Verified Allergy, Unknown, AMOXIL,HAS TOLERATED CEPHS, ) has tolerated cefepime and ceftriaxone on previous admissions Phenytoin (Verified Allergy, Unknown, 12/21/16) Sulfamethoxazole w/Trimethoprim (Unverified Allergy, Unknown, VASCULITIS, 12/21/16) Medications Current Inpatient Medications Medications (Trade) Dose Ordered Sig/Phillip Route Start Time Stop Time Status Last Admin Dose Admin Docusate Sodium (coLACE CAP) 100 mg BID PO 12/14/16 20:00 01/13/17 20:59 12/26/16 08:01 100 MG Mupirocin (Bactroban 2% Oint) 1 appln DAILY EXT 12/15/16 08:00 01/14/17 07:59 12/26/16 08:00 1 APPLN Polyethylene (Miralax Powder Packet) 17 gm BID PO 12/15/16 20:00 01/14/17 08:59 Future hold 12/26/16 08:01 17 GM Morphine Sulfate (MoRPHine SULFATE INJ) 2 mg Q4H PRN IV 12/15/16 12:00 12/29/16 11:59 Ondansetron HCl (Zofran Inj) 4 mg Q8H PRN IV 12/16/16 19:30 01/15/17 19:29 12/19/16 16:05 4 MG Levothyroxine Sodium (Synthroid Tab) 75 mcg DAILYBB PO 12/18/16 06:30 01/17/17 06:29 12/26/16 05:27 75 MCG Enteral Nutritional Formula (Boost Plus Vanilla) 1 can TID PO 12/22/16 20:00 01/21/17 19:59 12/26/16 08:02 1 CAN Clindamycin Phosphate 900 mg/ Dextrose 106 ml @ 100 mls/hr Q8H IV 12/24/16 02:00 12/31/16 01:59 12/26/16 08:19 100 MLS/HR Ipratropium [place] (Atrovent 0.02% 0.5MG/2.5ML Neb) 0.5 mg Q6R INH 12/24/16 03:00 01/23/17 02:59 12/26/16 08:07 0.5 MG Levalbuterol (Xopenex 1.25MG/ 0.5ML Neb) 1.25 mg Q6R INH 12/24/16 03:00 01/23/17 02:59 12/26/16 08:07 1.25 MG Ipratropium [place] (Atrovent 0.02% 0.5MG/2.5ML Neb) 0.5 mg Q2H PRN INH 12/23/16 22:45 01/22/17 22:44 Levalbuterol (Xopenex 1.25MG/ 0.5ML Neb) 1.25 mg Q2H PRN INH 12/23/16 22:45 01/22/17 22:44 Vancomycin HCl (Consult) 1 ea UD PRN N/A 12/24/16 00:30 01/23/17 00:29 Pantoprazole Sodium 40 mg/ Syringe 10 ml @ 5 mls/min BID IV 12/24/16 09:00 01/23/17 08:14 12/26/16 08:19 5 MLS/MIN Aztreonam 1000 mg/ Dextrose 110 ml @ 110 mls/hr DAILY@06,14,22 IV 12/24/16 14:00 12/30/16 13:59 12/26/16 05:27 110 MLS/HR Aztreonam (Consult) 1 ea UD PRN N/A 12/24/16 10:45 01/23/17 10:44 Bisacodyl (Dulcolax Supp) 10 mg DAILY PRN ND 12/26/16 09:15 01/25/17 09:14 Methylprednisolone Sodium Succinate 60 mg/Syringe 0.96 ml @ 1.5 mls/min Q6H IV 12/26/16 16:00 01/25/17 09:14 Vancomycin HCl 1000 mg/Sodium Chloride 270 ml @ 125 mls/hr Q24H IV 12/26/16 10:00 01/02/17 23:59 Impression (1) Hyponatremia (2) ANA PAULA (acute kidney injury) (3) Hypertension Nos (4) Anemia (5) Obstipation Ms. Rivera was admitted to the hospital with constipation and fecal impaction. Unfortunately ahw developed ANA PAULA consistent with ATN. Creatinine peaked at 2.4 mg/dL on December 18. Kidney function had recovered to baseline. The patient developed hyponatremia attributed to poor oral intake and nutrition. She does have evidence of TBW in the form of dependent edema associated with hypoalbuminemia. Urine sodium and potassium both low consistent with prerenal/sodium avid state. Colonoscopy was poor prep but did not identify any pathology. She had an ERCP 12/22/16 for LFT abnormalities. Recommendations CKD/ANA PAULA: -- Creatinine remains at baseline. Electrolytes are acceptable -- Monitor I/O's and metabolic profile closely -- Recommend gentle diureses as patient is mildly edematous ANEMIA: -- No retroperitoneal hemorrhage identified on imaging studies -- Hematology note reviewed this am. Patient has been ordered one unit PRBC and has been started on KERI -- Haptoglobin has been ordered and results are pending. MALNUTRITION: -- Patient is hypoalbuminemic and nutritional support will need to be considered early
[2016-12-26] MEDS ORDERED: MoRPHine SULFATE 2 MG/ML CARP IV STA (11:39)
--- NOTE | 2016-12-26 12:04 | CRITICAL CARE PROGRESS NOTE ---
DATE: 12/26/2016 DATE: 12/26/2016. SUBJECTIVE: The patient's care was discussed in detail with her nurse, Erna today. She was on BiPAP 13/7 50% most of the night and was placed on a high flow nasal cannula at 70% FIO2 this morning. She was able to eat a little bit without any nausea or vomiting. Overall, she says she feels tired and "tired of fighting." She denies abdominal pain but does feel short of breath without the BiPAP. She was just given 1 mg of morphine. She has not had a bowel movement in 2 days. She underwent IVC filter placement yesterday. She was actively diuresed with several doses of Lasix yesterday. PHYSICAL EXAMINATION: VITAL SIGNS: Maximum temperature 37, heart rate 95-104, respiratory rate 24-26, blood pressure 129-143/70s-90s, oxygen saturation 96% on BiPAP 13/7 50% high flow nasal cannula 70%. 24-hour fluid balance -1.3 liters. GENERAL: She appears extremely fatigued. She is mildly tachypneic. NEUROLOGIC: She is oriented to person and place. She very weakly follows commands. LUNGS: Rales throughout. No rhonchi or wheezes. HEART: Tachycardic, regular, 2/6 systolic murmur heard best at the right sternal border. ABDOMEN: Soft, nondistended, some diffuse mild tenderness. No rebound or guarding. Hypoactive bowel sounds. EXTREMITIES: 2-3+ pretibial edema. LABORATORY DATA: White blood cell count 20.7, hemoglobin 8.3, hematocrit 25.4, platelets 182. Sodium 137, potassium 4, chloride 101, CO2 24, BUN 25, creatinine 1.2, blood sugar 112, calcium 7.8, total bilirubin 1.6, direct bilirubin 1.2, alkaline phosphatase 245. C-reactive protein 17.8, total protein 4.8, albumin 1.7, magnesium 1.9, phosphorus 3.5. MEDICATIONS: Aztreonam, Dulcolax, clindamycin, Colace, Boost, Atrovent, Xopenex, Synthroid, morphine, Bactroban, Zofran, Protonix, MiraLax, and vancomycin. IMAGING: Portable chest x-ray from this morning was reviewed and shows patchy diffuse bilateral infiltrates similar to yesterday's chest x-ray. IMPRESSIONS: 1. Acute hypoxemic respiratory failure. She is being treated for possible pneumonia and she has been diuresed. It has been unclear whether or not her pulmonary decompensation is secondary to her severe aortic stenosis, pneumonia or ongoing unknown process related to vasculitis or diffuse alveolar hemorrhage as she has had in the past. Despite diuresis and antibiotics she is not improving. I discussed her care with Dr. Lagunas today, in particular starting IV steroids based on the chest x-ray pattern. 2. Left lower extremity deep venous thrombosis status post IVC filter placement. 3. Severe aortic stenosis. 4. Anemia, no signs of acute blood loss, status post 1 unit of packed red blood cells. 5. Possible acute cholecystitis, her white blood cell count has jumped today and cholecystostomy tube has been discussed with GI, general surgery and hospitalist services. 6. Acute kidney injury, improved. 7. Status post endoscopic retrograde cholangiopancreatography. 8. Constipation, status post therapeutic colonoscopy. 9. History of hypothyroidism. 10. History of pulmonary embolism. PLAN: As noted above, I discussed her care with Dr. Sims, Dr. Henderson and Dr. Jarvis. We overall felt that cholecystostomy tube would be an option for her, although it is unclear to me if acute cholecystitis is what is driving things at this point. This was presented to the patient's son, in particular the fact that she would need to be transferred to a different facility in order to have that procedure done. The son and daughter do not feel their mother would want to be transferred to another hospital or have ongoing aggressive care. The patient said more than once "I am tired of fighting". For now, I will continue the use of morphine for comfort in anticipation of changing the goals of care to comfort. The children at bedside are waiting for their brother to arrive and plan to discuss.Continue all other measures. I have also added Solu-Medrol 60 mg IV q. 6 hours. She received Lasix this morning. C. diff assay and urinalysis were also ordered. We will reassess and I will talk with family once the son who lives in this area arrives at the hospital. Please call me with any questions or concerns. MARIAELENA
--- NOTE | 2016-12-26 14:15 | Progress Note ---
Subjective Date of Service: Dec 26, 2016. Subjective pt has tremor, is on high flow meds at this time, she states she is tired of fighting and tired of being sick This am Dr Cardoso, Dr Henderson and I had a discussion regarding her overall plan of care for approximately 10 minutes, we were thinking of pursuing a percutaneous cholecystotomy tube, and I went to speak to the son, [place], after 15 minutes of discussion with him, he feels he and his other siblings believe that their mothers strong beliefs of remaining independent and not wanting heroic measures are not becoming close to being challenged and are considering a transition to comfort care. Dr Cardoso did speak to the family independently and we are currently waiting for the third child to arrive to make a final decision on direction of her care the pt herself stated she was short of breath and tired, specifically felt tired of fighting and "going through all this" Problem List Medical Problems: (1) Acute kidney injury Status: Acute (2) Anemia Status: Acute (3) Chronic anemia Status: Acute (4) Colitis Status: Acute (5) Elevated troponin Status: Acute (6) Hypoxia Status: Acute Review of Systems Constitutional: + weakness, + fatigue, No fever, No chills Respiratory: + shortness of breath, + dyspnea on exertion, + dyspnea at rest Cardiac: + orthopnea, No chest pain, No edema Abdomen: No pain, No nausea, No vomiting, No diarrhea Female : No dysuria, No urinary frequency Psychiatric: No depression symptoms, No anhedonism, No anxiety Objective Vital Signs Date Time Temp Pulse Resp B/P (MAP) Pulse Ox O2 Delivery O2 Flow Rate FiO2 12/26/16 08:09 103 96 50 12/26/16 08:07 103 22 96 BiPAP/CPAP 50 12/26/16 06:00 104 24 140/92 (108) 96 BiPAP 50 12/26/16 05:24 116 92 40 12/26/16 04:00 92 BiPAP 40 12/26/16 04:00 36.3 104 25 142/96 (111) 92 BiPAP 40 12/26/16 03:26 102 26 91 BiPAP/CPAP 40 12/26/16 02:00 94 16 143/79 (100) 93 BiPAP 40 12/26/16 00:01 36.3 95 22 129/84 (99) 93 BiPAP 40 12/25/16 23:59 94 BiPAP 40 12/25/16 23:17 94 92 40 12/25/16 22:01 93 21 136/76 (96) 95 12/25/16 22:00 94 22 94 16 21:28 37.0 92 22 139/76 (97) 95 BiPAP 40 12/25/16 21:01 92 22 139/76 (97) 95 12/25/16 21:00 104 17 95 12/25/16 20:01 102 23 130/81 (97) 96 12/25/16 20:00 95 21 97 12/25/16 19:45 37.0 90 22 137/77 (97) 95 BiPAP 40 12/25/16 19:30 BiPAP 40 12/25/16 19:08 103 24 91 BiPAP/CPAP 40 12/25/16 19:08 99 91 40 12/25/16 19:01 100 23 137/77 (97) 90 12/25/16 19:00 97 22 90 12/25/16 18:01 110 21 136/75 (95) 91 17 18:00 104 22 90 17 17:01 93 23 126/81 (96) 94 1617 17:00 88 19 90 1617 16:01 95 23 127/81 (96) 94 16/17 16:00 91 22 97 1617 15:31 95 20 132/76 (94) 94 1617 15:30 37.0 90 24 132/76 (94) 95 BiPAP 50 1617 15:30 BiPAP 50 1617 15:01 107 22 135/70 (91) 91 1617 15:00 103 22 92 616/17 14:01 99 21 133/79 (97) 95 BiPAP 60 16/17 13:57 103 22 97 BiPAP/CPAP 60 16/17 13:46 113 23 122/85 (97) 97 BiPAP 60 6/16/17 13:31 98 20 119/82 (94) 95 BiPAP 60 16/17 13:30 100 22 130/75 (93) 95 BiPAP 60 16/17 13:24 36.4 98 24 127/79 (95) 92 BiPAP 60 12/25/16 12:01 36.6 105 19 125/76 (92) 99 BiPAP 60 12/25/16 12:00 BiPAP 60 12/25/16 11:37 104 20 130/84 (99) 100 BiPAP 60 12/25/16 10:01 114 22 140/76 (97) 93 Oxymask 12.0 12/25/16 09:01 105 24 112/80 (91) 91 Oxymask 12.0 Physical Exam General Appearance: WD/WN, + moderate distress Eyes: PERRL, EOMI Neck: supple, no JVD Respiratory/Chest: + decreased breath sounds, + accessory muscle use Cardiovascular: regular rate, rhythm, + systolic murmur Abdomen: + abnormal bowel sounds, + distended, + guarding, + tenderness Extremities: + pedal edema, + swelling Neurologic/Psychiatric: alert, + depressed affect, + disoriented Skin: normal color, warm/dry Laboratory Results Last 24 Hours Test 12/25/16 12:00 12/25/16 12:04 12/25/16 16:36 12/25/16 17:46 Bedside Glucose 113 mg/dl 110 mg/dl Hemoglobin 7.8 g/dL Hematocrit 23.7 % Sodium Level 137 mmol/L Potassium Level 3.7 mmol/L Chloride Level 102 mmol/L Carbon Dioxide Level 26 mmol/L Anion Gap 9.0 mmol/L Blood Urea Nitrogen 22 mg/dl Creatinine 1.10 mg/dl Est Creatinine Clear Calc Drug Dose 34.2 ml/min Estimated GFR () 51.9 Estimated GFR (Non- 44.8 BUN/Creatinine Ratio 19.8 Random Glucose 92 mg/dl Calcium Level 7.5 mg/dl Test 12/25/16 20:43 12/26/16 05:35 Bedside Glucose 102 mg/dl White Blood Count 20.77 K/uL Red Blood Count 2.81 M/uL Hemoglobin 8.3 g/dL Hematocrit 25.4 % Mean Corpuscular Volume 90.4 fL Mean Corpuscular Hemoglobin 29.5 pg Mean Corpuscular Hemoglobin Concent 32.7 g/dl Platelet Count 182 K/uL Mean Platelet Volume 10.7 fL RDW Standard Deviation 49.0 fL RDW Coefficient of Variation 14.8 % Nucleated RBC Absolute Count (auto) 0.08 K/uL Neutrophils % (Manual) 83.5 % Lymphocytes % (Manual) 8.7 % Monocytes % (Manual) 1.7 % Eosinophils % (Manual) 0.9 % Metamyelocytes % 2.6 % Myelocytes % 2.6 % Nucleated Red Blood Cells % 0.4 % Neutrophils # (Manual) 17.34 K/uL Total Absolute Neutrophils 17.34 K/uL Lymphocytes # (Manual) 1.81 K/uL Total Absolute Lymphocytes 1.81 K/uL Monocytes # (Manual) 0.35 K/uL Eosinophils # (Manual) 0.19 K/uL Metamyelocytes # 0.54 K/uL Myelocytes # 0.54 K/uL Toxic Granulation 1+ Dohle Bodies 1+ Prothrombin Time 18.3 SECONDS Prothromb Time International Ratio 1.7 Activated Partial Thromboplast Time 43.6 SECONDS Partial Thromboplastin Ratio 1.7 Sodium Level 137 mmol/L Potassium Level 4.0 mmol/L Chloride Level 101 mmol/L Carbon Dioxide Level 24 mmol/L Anion Gap 12.0 mmol/L Blood Urea Nitrogen 25 mg/dl Creatinine 1.20 mg/dl Est Creatinine Clear Calc Drug Dose 31.4 ml/min Estimated GFR () 46.7 Estimated GFR (Non- 40.3 BUN/Creatinine Ratio 20.4 Random Glucose 112 mg/dl Calcium Level 7.8 mg/dl Phosphorus Level 3.5 mg/dl Magnesium Level 1.9 mg/dl Random Vancomycin Level 14.4 mcg/ml Assessment and Plan 86 F with acute diastolic heart failure with a history of chronic diastolic heart failure with severe , mod MR, CKD3 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 and recent pulmonary hemorrhage with discussion of 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, Thrombophilia with acute DVT and previoius PE x 2 even on coumadin, , seizure d/o, h/o cerebellar CVA After a prolonged discussion, with all three children a decision was reached to proceed to comfort care, stop antibiotics, eventually reduce oxygen to nc and understand that is expected acute diastolic heart failure from severe , in past discussed TaVr and felt not to be good candidate, diuresis without reduction in Oxygen requirements or improved x ray now on high flow oxygen, ECHO without changes, acute blood loss anemia, on anticoagulation, no over clues for blood loss consider CT negative for retroperitoneal hemorrhage, transfused 2 units, stopped heparin, placed IVC filter 12/25 as has acute LLE DVT, no obious blood loss, concerns with previous mention of vasculitis could implicate hemolysis, continues on ppi This pt has persistent leukocytosis even on antibiotics, concern for cholecystitis, if needed would require a percutaneous cholecytotomy tube, family is not wishing to pursue this and may consider comfort care earlier in hospital stay, abdominal pain and anemia,s/p colonoscopy on 12/[address] Macias for disimpaction. - Had hematemesis/coffee ground emesis on 12/17, heparin gtt(for acute DVT) held, then restarted - With h/o recent GI bleed on previous admission - EGD completed on 12/17 showing LA Grade C reflux esophagitis, hiatal hernia and few gastric polyps. - ERCP completed on 12/22 with gallstone removal-sphincterotomy, concern for continued cholecystitis, not surgical candidate on antibiotics Elevated bilirubin Completed EUS/ERCP 12/[address] Fischer. Urinary retention secondary to constipation-pt cut her Hu with scissors with episode of delirium-> retention resolved with Hu replaced 12/19 CKD stage III, Dispo-discussion with family may lead to comfort care, if so and therapy stops specifically high flow oxygen would be imminent extended visit time for caregiver conference includes 75 minutes over usual visitation time in face to face discussions
[2016-12-26] MEDS: METHYLPREDNISOLONE IV 60 MG in SYRINGE 0 ML IV SCH ×3 (17:58→21:29)
[2016-12-26] MEDS ORDERED: LORAZEPAM 2 MG/ML 1 ML VIAL IV PRN ×2 (18:45)
[2016-12-26] MEDS: SCOPOLAMINE 1.5 MG TDSY TD SCH (22:00)
[2016-12-27] VITALS (13 sets, daily range): BP systolic 130–142; BP diastolic 80–93; PULSE 88–112; TEMP 36.5–36.6; O2SAT 83–97
[2016-12-27] MEDS: IPRATROPIUM BROMIDE NEB SOLN 0.02% 2.5 ML VIAL INH SCH ×4 (01:42→19:07)
[2016-12-27] MEDS: LEVALBUTEROL 1.25MG/0.5ML NEB INH SCH ×4 (01:42→19:07)
[2016-12-27 05:38] LABS: HEMATOCRIT 24.5 % (37-47); MEAN CELL VOLUME 90.7 fL (80-100); MEAN CORPUSCULAR HGB CONC 33.1 g/dl (32-36); MEAN PLATELET VOLUME 10.2 fL (7.4-10.4); PLATELET COUNT 215 K/uL (130-400); WHITE BLOOD COUNT 17.08 K/uL (4.8-10.8)
[2016-12-27 05:51] LABS: PARTIAL THROMBOPLASTIN RATIO 1.5
[2016-12-27 06:01] LABS: BUN/CREATININE RATIO 25.2 (10-20); CREATININE 1.3 mg/dl (0.60-1.20); POTASSIUM 3.7 mmol/L (3.5-5.1)
[2016-12-27 06:04] LABS: ALB/GLOB RATIO 0.6 (0.9-2); C-REACTIVE PROTEIN 14.1 mg/dl (0-0.29)
[2016-12-27 06:06] LABS: BASO % 0.4 %; BASO ABS # 0.07 K/uL (0-0.2); COMPLETE YES; IG% 7.5 %; LYMPH % 14.2 %; LYMPH ABS # 2.43 K/uL (1.2-3.4); NEUT % 74.9 %; POLYCHROMASIA 1+; TOXIC GRANULATION 2+
[2016-12-27] MEDS: DOCUSATE SODIUM 100 MG CAP PO SCH (07:33)
[2016-12-27] MEDS: POLYETHYLENE (MIRALAX) 17 GM PACK PO SCH (07:33)
[2016-12-27] MEDS: CLINDAMYCIN IV 900 MG in DEXTROSE 5% ADD-VANTAGE 100ML 100 ML IV SCH (07:33)
[2016-12-27] MEDS: PANTOprazole INJ 40 MG in SYRINGE 0 ML IV SCH ×2 (07:33→20:00)
[2016-12-27] MEDS: METHYLPREDNISOLONE IV 60 MG in SYRINGE 0 ML IV SCH (07:34)
[2016-12-27] MEDS: MUPIROCIN 2% OINT 22 GM TUBE EXT SCH (07:34)
[2016-12-27] MEDS: VANCOMYCIN INJ 1,000 MG in SODIUM CHLORIDE 0.9% 250ML 250 ML IV SCH (07:34)
[2016-12-27] MEDS: AZTREONAM IV 1,000 MG in DEXTROSE 5% 100ML IV SCH (07:34)
[2016-12-27] MEDS: SCOPOLAMINE 1.5 MG TDSY TD SCH (07:49)
[2016-12-27] MEDS: CHECK SCOPOLAMINE PATCH PLACEMENT SCH ×4 (07:50→23:14)
[2016-12-27] MEDS: MoRPHine SULFATE 2 MG/ML CARP IV PRN ×2 (09:12→19:00)
--- NOTE | 2016-12-27 09:51 | Nephrology Progress Note ---
Nephrology Progress Note Date of Service Dec 27, 2016. Chief Complaint Follow up evaluation of this patient admitted w/ acute on chronic kidney injury and electrolyte disorders in the setting of CBD stone and anemia Vital Signs Last 8 Hrs Date Time Temp Pulse Resp B/P (MAP) Pulse Ox O2 Delivery O2 Flow Rate FiO2 12/27/16 08:00 Nasal Cannula 6.0 12/27/16 08:00 106 12/27/16 07:27 106 20 94 Nasal Cannula 60.0 60 12/27/16 06:02 103 20 142/93 (109) 94 High Flow Oxygen 60.0 55 12/27/16 04:01 36.6 108 19 130/80 (97) 92 High Flow Oxygen 60.0 55 12/27/16 04:00 High Flow Oxygen 60.0 60 12/27/16 02:01 96 21 130/91 (104) 94 High Flow Oxygen 60.0 55 Last Recorded Weight Weight (Kilograms): 67.100 Family History Heart disease Social History Drug Use: none Marital Status: Housing Status: lives with family 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 Laboratory Results Past 24 Hours 12/27/16 05:16 Red Blood Count 2.70, Mean Corpuscular Volume 90.7, Mean Corpuscular Hemoglobin 30.0, Mean Corpuscular Hemoglobin Concent 33.1, Mean Platelet Volume 10.2, Neutrophils (%) (Auto) 74.9, Lymphocytes (%) (Auto) 14.2, Monocytes (%) (Auto) 3.0, Eosinophils (%) (Auto) 0.0, Basophils (%) (Auto) 0.4, Neutrophils # (Auto) 12.79, Lymphocytes # (Auto) 2.43, Monocytes # (Auto) 0.51, Eosinophils # (Auto) 0.00, Basophils # (Auto) 0.07 12/27/16 05:16 Test 12/26/16 09:53 12/27/16 05:16 Erythrocyte Sedimentation Rate 35 mm/hr (0-21) Magnesium Level 1.8 mg/dl (1.8-2.4) Total Bilirubin 1.6 mg/dl (0.2-1) 1.4 mg/dl (0.2-1) Direct Bilirubin 1.2 mg/dl (0-0.2) 1.0 mg/dl (0-0.2) Aspartate Amino Transf (AST/SGOT) 30 U/L (15-37) 24 U/L (15-37) Alanine Aminotransferase (ALT/SGPT) 43 U/L (12-78) 37 U/L (12-78) Alkaline Phosphatase 245 U/L (45-117) 236 U/L (45-117) C-Reactive Protein 17.80 mg/dl (0-0.29) 14.10 mg/dl (0-0.29) Total Protein 4.8 gm/dl (6.4-8.2) 4.8 gm/dl (6.4-8.2) Albumin 1.7 gm/dl (3.4-5.0) 1.8 gm/dl (3.4-5.0) Procalcitonin 2.01 ng/ml (0-0.5) 1.85 ng/ml (0-0.5) White Blood Count 17.08 K/uL (4.8-10.8) Red Blood Count 2.70 M/uL (4.2-5.4) Hemoglobin 8.1 g/dL (12.0-16.0) Hematocrit 24.5 % (37-47) Mean Corpuscular Volume 90.7 fL (80-100) Mean Corpuscular Hemoglobin 30.0 pg (25-34) Mean Corpuscular Hemoglobin Concent 33.1 g/dl (32-36) Platelet Count 215 K/uL (130-400) Mean Platelet Volume 10.2 fL (7.4-10.4) Neutrophils (%) (Auto) 74.9 % Lymphocytes (%) (Auto) 14.2 % Monocytes (%) (Auto) 3.0 % Eosinophils (%) (Auto) 0.0 % Basophils (%) (Auto) 0.4 % Neutrophils # (Auto) 12.79 K/uL (1.4-6.5) Lymphocytes # (Auto) 2.43 K/uL (1.2-3.4) Monocytes # (Auto) 0.51 K/uL (0.11-0.59) Eosinophils # (Auto) 0.00 K/uL (0-0.5) Basophils # (Auto) 0.07 K/uL (0-0.2) RDW Standard Deviation 49.1 fL (36.4-46.3) RDW Coefficient of Variation 15.0 % (11.5-14.5) Immature Granulocyte % (Auto) 7.5 % Immature Granulocyte # (Auto) 1.28 K/uL (0.00-0.02) Nucleated RBC Absolute Count (auto) 0.17 K/uL (0-0) Nucleated Red Blood Cells % 1.0 % Toxic Granulation 2+ Polychromasia 1+ Activated Partial Thromboplast Time 40.1 SECONDS (21.0-31.0) Partial Thromboplastin Ratio 1.5 Anion Gap 12.0 mmol/L (3-11) Est Creatinine Clear Calc Drug Dose 28.2 ml/min Estimated GFR () 42.4 Estimated GFR (Non- 36.6 BUN/Creatinine Ratio 25.2 (10-20) Calcium Level 8.0 mg/dl (8.5-10.1) Globulin 3.0 gm/dl (2.5-4.0) Albumin/Globulin Ratio 0.6 (0.9-2) Allergies Coded Allergies: Doxycycline (Verified Allergy, Intermediate, RASH, 12/21/16) Trimethoprim (Verified Allergy, Intermediate, RASH, 12/21/16) Adhesives (Verified Allergy, Unknown, HAD RXN TO HOLTER MONITOR PATCHES, ) Amoxicillin (Verified Allergy, Unknown, RASH, 12/21/16) Atorvastatin (Verified Allergy, Unknown, UNKNOWN, 12/21/16) Carbamazepine (Verified Allergy, Unknown, 12/21/16) Hydantoins (Verified Allergy, Unknown, 12/21/16) Levofloxacin (Verified Allergy, Unknown, UNKNOWN, 12/21/16) Penicillins (Verified Allergy, Unknown, AMOXIL,HAS TOLERATED CEPHS, ) has tolerated cefepime and ceftriaxone on previous admissions Phenytoin (Verified Allergy, Unknown, 12/21/16) Sulfamethoxazole w/Trimethoprim (Unverified Allergy, Unknown, VASCULITIS, 12/21/16) Medications Current Inpatient Medications Medications (Trade) Dose Ordered Sig/Phillip Route Start Time Stop Time Status Last Admin Dose Admin Docusate Sodium (coLACE CAP) 100 mg BID PO 12/14/16 20:00 01/13/17 20:59 12/26/16 08:01 100 MG Mupirocin (Bactroban 2% Oint) 1 appln DAILY EXT 12/15/16 08:00 01/14/17 07:59 12/26/16 08:00 1 APPLN Polyethylene (Miralax Powder Packet) 17 gm BID PO 12/15/16 20:00 01/14/17 08:59 Future hold 12/26/16 08:01 17 GM Ondansetron HCl (Zofran Inj) 4 mg Q8H PRN IV 12/16/16 19:30 01/15/17 19:29 12/19/16 16:05 4 MG Levothyroxine Sodium (Synthroid Tab) 75 mcg DAILYBB PO 12/18/16 06:30 01/17/17 06:29 12/26/16 05:27 75 MCG Clindamycin Phosphate 900 mg/ Dextrose 106 ml @ 100 mls/hr Q8H IV 12/24/16 02:00 12/31/16 01:59 12/26/16 08:19 100 MLS/HR Ipratropium [place] (Atrovent 0.02% 0.5MG/2.5ML Neb) 0.5 mg Q6R INH 12/24/16 03:00 01/23/17 02:59 12/27/16 07:26 0.5 MG Levalbuterol (Xopenex 1.25MG/ 0.5ML Neb) 1.25 mg Q6R INH 12/24/16 03:00 01/23/17 02:59 12/27/16 07:26 1.25 MG Ipratropium [place] (Atrovent 0.02% 0.5MG/2.5ML Neb) 0.5 mg Q2H PRN INH 12/23/16 22:45 01/22/17 22:44 Levalbuterol (Xopenex 1.25MG/ 0.5ML Neb) 1.25 mg Q2H PRN INH 12/23/16 22:45 01/22/17 22:44 Vancomycin HCl (Consult) 1 ea UD PRN N/A 12/24/16 00:30 01/23/17 00:29 Pantoprazole Sodium 40 mg/ Syringe 10 ml @ 5 mls/min BID IV 12/24/16 09:00 01/23/17 08:14 12/26/16 08:19 5 MLS/MIN Aztreonam 1000 mg/ Dextrose 110 ml @ 110 mls/hr DAILY@,,22 IV 12/24/16 14:00 12/30/16 13:59 12/26/16 13:55 110 MLS/HR Aztreonam (Consult) 1 ea UD PRN N/A 12/24/16 10:45 01/23/17 10:44 Bisacodyl (Dulcolax Supp) 10 mg DAILY PRN [place] 12/26/16 09:15 01/25/17 09:14 Methylprednisolone Sodium Succinate 60 mg/Syringe 0.96 ml @ 1.5 mls/min Q6H IV 12/26/16 16:00 01/25/17 09:14 Vancomycin HCl 1000 mg/Sodium Chloride 270 ml @ 125 mls/hr Q24H IV 12/26/16 10:00 01/02/17 23:59 12/26/16 10:02 125 MLS/HR Morphine Sulfate (MoRPHine SULFATE INJ) 2 mg Q1H PRN IV 12/26/16 12:00 12/29/16 11:59 12/27/16 09:12 2 MG Scopolamine (Transderm-Scop Patch) 1.5 mg Q72H TD 12/26/16 22:00 01/25/17 21:59 12/27/16 07:49 1.5 MG Miscellaneous (Remove Transderm-Scop Patch) 1 ea Q72H N/A 12/29/16 22:00 01/28/17 21:59 Miscellaneous Information (Check Scopolamine Patch Placement) 1 ea QS N/A 12/27/16 00:00 01/26/17 00:00 12/27/16 07:50 1 EA Atropine Sulfate (Atropine Sulfate 1% Oph Soln) 4 drops Q1H PRN PO 12/26/16 18:45 01/25/17 18:44 Lorazepam (Ativan Inj) 0.5 mg Q1H PRN IV 12/26/16 18:45 01/25/17 18:44 Lorazepam (Ativan Inj) 1 mg Q1H PRN IV 12/26/16 18:45 01/25/17 18:44 Impression (1) Hyponatremia (2) ANA PAULA (acute kidney injury) (3) Hypertension Nos (4) Anemia (5) Obstipation Recommendations Chart review completed this am. IM and critical care notes reviewed. Patient is now on comfort measures. Will sign off. Please call if further Nephrology assistance is needed.
--- NOTE | 2016-12-27 10:03 | Hematology/Oncology Prog Note ---
Hematology/Onc Progress Note Date of Service Dec 27, 2016. Diagnoses Normochromic normocytic anemia Mild thrombocytopenia DVT Pulmonary edema Renal insufficiency Medications Medications Administered Medications (Trade) Dose Ordered Sig/Phillip Route Start Time Stop Time Status Last Admin Dose Admin Magnesium Citrate (Citrate Of Magnesia Soln) 150 ml NOW STAT PO 12/14/16 13:39 12/14/16 13:41 DC 12/14/16 13:59 150 ML Miscellaneous (Soap Suds Enema) 1 ea NOW STAT [place] 12/14/16 13:39 12/14/16 13:41 DC 12/14/16 13:39 1 EA Metoclopramide HCl (Reglan Inj) 10 mg NOW STAT IV 12/14/16 15:15 12/14/16 15:16 DC 12/14/16 15:21 10 MG Sodium Chloride 500 ml @ 999 mls/hr Q31M STAT IV 12/14/16 15:15 12/14/16 15:45 DC 12/14/16 15:21 999 MLS/HR Acetaminophen (Tylenol Tab) 650 mg Q4H PRN PO 12/14/16 17:00 12/24/16 09:06 DC 12/19/16 11:45 650 MG Cholecalciferol (Vitamin D Tab) 2,000 inter.unit DAILY PO 12/15/16 08:00 12/24/16 09:06 DC 12/23/16 09:18 2,000 INTER.UNIT Cyanocobalamin (Vitamin B-12 Tab) 1,000 mcg DAILY PO 12/15/16 08:00 12/24/16 09:06 DC 12/23/16 09:18 1,000 MCG Diltiazem HCl (TIAzac CAP) 240 mg DAILY PO 12/15/16 08:00 12/24/16 09:06 DC 12/23/16 09:17 240 MG Docusate Sodium (coLACE CAP) 100 mg BID PO 12/14/16 20:00 12/27/16 09:47 DC 12/26/16 08:01 100 MG Levothyroxine Sodium (Synthroid Tab) 75 mcg DAILYBB PO 12/15/16 06:30 12/21/16 18:52 DC 12/17/16 06:16 75 MCG Nystatin (Mycostatin Susp) 5 ml QID PO 12/14/16 19:00 12/24/16 18:59 DC 12/24/16 16:42 5 ML Pravastatin Sodium (Pravachol Tab) 20 mg HS PO 12/14/16 21:00 12/24/16 09:06 DC 12/23/16 22:50 20 MG Prednisone (PredniSONE TAB) 20 mg QAM PO 12/15/16 08:00 12/16/16 16:05 DC 12/16/16 07:29 20 MG Mupirocin (Bactroban 2% Oint) 1 appln DAILY EXT 12/15/16 08:00 01/14/17 07:59 12/26/16 08:00 1 APPLN Psyllium Hydrophilic Mucilloid (Metamucil Powder) 1 pkt DAILY PO 12/15/16 08:00 12/16/16 14:03 DC 12/16/16 07:29 1 PKT Pantoprazole Sodium (Protonix Tab) 40 mg BID PO 12/14/16 20:00 12/17/16 07:21 DC 12/16/16 21:11 40 MG Sodium Chloride 1,000 ml @ 100 mls/hr Q10H IV 12/14/16 17:00 12/16/16 14:03 DC 12/14/16 19:23 100 MLS/HR Polyethylene (Miralax Powder Packet) 17 gm QAM PO 12/15/16 08:00 12/15/16 11:09 DC 12/15/16 10:27 17 GM Bisacodyl (Dulcolax Supp) 10 mg NOW STAT [place] 12/14/16 16:56 12/14/16 17:35 DC 12/14/16 19:20 10 MG Furosemide (Lasix Tab) 20 mg NOW ONCE PO 12/14/16 22:30 12/14/16 22:31 DC 12/14/16 22:40 20 MG Heparin Sodium/ Dextrose 500 ml @ 17 mls/hr Q24H PRN IV 12/15/16 01:00 12/24/16 08:37 DC 12/24/16 04:50 17 MLS/HR Morphine Sulfate (MoRPHine SULFATE INJ) 2 mg STK-MED ONCE .ROUTE 12/15/16 09:22 12/15/16 09:23 DC 12/15/16 09:31 2 MG Furosemide (Lasix Tab) 20 mg QAM PO 12/16/16 08:00 12/17/16 11:11 DC 12/16/16 07:29 20 MG Furosemide (Lasix Tab) 20 mg 1115 ONCE PO 12/15/16 11:15 12/15/16 11:16 DC 12/15/16 11:20 20 MG Polyethylene (Miralax Powder Packet) 17 gm BID PO 12/15/16 20:00 12/27/16 09:47 DC 12/26/16 08:01 17 GM Morphine Sulfate (MoRPHine SULFATE INJ) 2 mg Q4H PRN IV 12/15/16 12:00 12/26/16 11:16 DC 12/26/16 11:11 2 MG Miscellaneous Medication (Milk And Molasses Enema) 1 ea TODAY@1400 [place] 12/16/16 14:00 12/16/16 16:00 DC 12/16/16 14:00 1 EA Miscellaneous (Soap Suds Enema) 1 ea DAILY PRN [place] 12/16/16 14:00 12/24/16 09:06 DC 12/20/16 14:23 1 EA Mineral Oil (Fleet Oil Enema) 133 ml DAILY PRN [place] 12/16/16 14:15 12/24/16 09:06 DC 12/19/16 20:18 133 ML Ondansetron HCl (Zofran Inj) 4 mg Q8H PRN IV 12/16/16 19:30 01/15/17 19:29 12/19/16 16:05 4 MG Pantoprazole Sodium 80 mg/ Dextrose 120 ml @ 480 mls/hr NOW ONCE IV 12/17/16 07:45 12/17/16 07:59 DC 12/17/16 07:55 480 MLS/HR Pantoprazole Sodium 40 mg/ Dextrose 100 ml @ 20 mls/hr Q5H IV 12/17/16 08:00 12/17/16 17:32 DC 12/17/16 12:17 20 MLS/HR Sodium Chloride 1,000 ml @ 75 mls/hr [id number] IV 12/17/16 07:45 12/24/16 09:06 DC 12/17/16 21:34 75 MLS/HR Miscellaneous (Soap Suds Enema) 1 ea ONE STAT [place] 12/17/16 16:50 12/17/16 17:17 DC 12/17/16 16:50 1 EA Mineral Oil (Fleet Oil Enema) 133 ml ONE ONCE [place] 12/17/16 21:00 12/17/16 21:01 DC 12/17/16 20:40 133 ML Pantoprazole Sodium (Protonix Tab) 40 mg BID PO 12/17/16 20:00 12/24/16 09:06 DC 12/23/16 20:07 40 MG Levothyroxine Sodium (Synthroid Tab) 75 mcg DAILYBB PO 12/18/16 06:30 12/27/16 09:47 DC 12/26/16 05:27 75 MCG Bisacodyl (Dulcolax Supp) 10 mg HS [place] 12/17/16 22:00 12/18/16 15:18 DC 12/17/16 21:35 10 MG Enteral Nutritional Formula (Boost Breeze Nutritional Drink) 0.5 box TID PO 12/18/16 14:00 12/20/16 10:07 DC 12/20/16 09:22 0.5 BOX Sodium Biphosphate/ Sodium Phosphate (Fleet Enema) 132 ml TODAY@0800 ONCE [place] 12/21/16 08:00 12/21/16 08:01 DC 12/21/16 09:46 132 ML Polyethylene Glycol/ Electrolytes (Golytely Soln) 8 dose DAILY@0800 PO 12/19/16 08:00 12/20/16 08:01 DC 12/20/16 09:48 8 DOSE Potassium Chloride (Klor-Con Tab) 40 meq BID PO 12/19/16 09:15 12/21/16 10:10 DC 12/20/16 20:52 40 MEQ Potassium Chloride (Klor-Con Tab) 40 meq NOW ONCE PO 12/20/16 09:30 12/20/16 09:33 DC 12/20/16 09:45 40 MEQ Enteral Nutritional Formula (Boost Breeze Nutritional Drink) 1 box TID PO 12/20/16 14:00 12/22/16 14:00 DC 12/21/16 20:08 1 BOX Sodium Chloride (Sodium Chloride Tab) 1 gm TID PO 12/20/16 14:00 12/23/16 10:31 DC 12/23/16 09:17 1 GM Potassium Chloride (Klor-Con Tab) 80 meq BID PO 12/21/16 20:00 12/22/16 10:13 DC 12/21/16 20:10 80 MEQ Potassium Chloride 10 meq/ Prmx 100 ml @ 100 mls/hr Q1H IV 12/21/16 11:00 12/21/16 14:59 DC 12/21/16 18:35 100 MLS/HR Cefoxitin Sodium 1000 mg/Dextrose 60 ml @ 100 mls/hr Q12H IV 12/21/16 12:00 12/23/16 22:34 DC 12/23/16 12:12 100 MLS/HR Miscellaneous (Stop Order) 1 ea ONE ONCE N/A 12/22/16 12:00 12/22/16 12:01 DC 12/22/16 10:49 1 EA Potassium Chloride (Klor-Con Tab) 40 meq DAILY PO 12/23/16 08:00 12/23/16 19:59 DC 12/23/16 09:19 40 MEQ Sodium Phosphate 40 mmol/Sodium Chloride 1,013.3333 ml @ 152 mls/hr TODAY@1030 IV 12/22/16 10:30 12/22/16 23:59 DC 12/22/16 11:16 152 MLS/HR Enteral Nutritional Formula (Boost Plus Vanilla) 1 can TID PO 12/22/16 20:00 12/26/16 11:17 DC 12/26/16 08:02 1 CAN Heparin Sodium (Porcine) 4000 unit/Syringe 4 ml @ 10 mls/min NOW STAT IV 12/23/16 02:33 12/23/16 02:34 DC 12/23/16 02:43 10 MLS/MIN Warfarin Sodium (Coumadin Tab) 5 mg DAILY@16 PO 12/23/16 16:00 12/24/16 09:06 DC 12/23/16 16:48 5 MG Heparin Sodium (Porcine) 4000 unit/Syringe 4 ml @ 10 mls/min 1800 ONCE IV 12/23/16 18:00 12/24/16 08:37 DC 12/23/16 18:05 10 MLS/MIN Furosemide 40 mg/ Albumin Human 54 ml @ 54 mls/hr Q4H IV 12/23/16 23:00 12/24/16 14:55 DC 12/24/16 06:17 54 MLS/HR Aztreonam 2000 mg/ Dextrose 110 ml @ 100 mls/hr Q8H IV 12/23/16 22:30 12/24/16 10:38 DC 12/24/16 06:46 100 MLS/HR Clindamycin Phosphate 900 mg/ Dextrose 106 ml @ 100 mls/hr Q8H IV 12/24/16 02:00 12/27/16 09:47 DC 12/26/16 08:19 100 MLS/HR Ipratropium [place] (Atrovent 0.02% 0.5MG/2.5ML Neb) 0.5 mg Q6R INH 12/24/16 03:00 01/23/17 02:59 12/27/16 07:26 0.5 MG Levalbuterol (Xopenex 1.25MG/ 0.5ML Neb) 1.25 mg Q6R INH 12/24/16 03:00 01/23/17 02:59 12/27/16 07:26 1.25 MG Vancomycin HCl 1350 mg/Sodium Chloride 277 ml @ 125 mls/hr TODAY@2300 IV 12/23/16 23:00 12/24/16 01:13 DC 12/24/16 00:15 125 MLS/HR Furosemide 40 mg/ Syringe 4 ml @ 4 mls/min TODAY@0800 IV 12/24/16 08:00 12/24/16 11:00 DC 12/24/16 12:52 4 MLS/MIN Pantoprazole Sodium 40 mg/ Syringe 10 ml @ 5 mls/min BID IV 12/24/16 09:00 01/23/17 08:14 12/26/16 08:19 5 MLS/MIN Aztreonam 1000 mg/ Dextrose 110 ml @ 110 mls/hr DAILY@ IV 12/24/16 14:00 12/27/16 09:47 DC 12/26/16 13:55 110 MLS/HR Potassium Chloride 10 meq/ Prmx 100 ml @ 100 mls/hr Q1H IV 12/24/16 12:00 12/24/16 15:59 DC 12/24/16 18:27 100 MLS/HR Sodium Phosphate 15 mmol/Sodium Chloride 255 ml @ 100 mls/hr ONE ONCE IV 12/24/16 12:00 12/24/16 14:32 DC 12/24/16 12:35 100 MLS/HR Furosemide 40 mg/ Syringe 4 ml @ 4 mls/min ONE ONCE IV 12/24/16 18:00 12/24/16 18:01 DC 12/24/16 17:47 4 MLS/MIN Potassium Chloride (Klor-Con M10) 40 meq TODAY@1945 PO 12/24/16 19:45 12/24/16 19:46 DC 12/24/16 20:42 40 MEQ Furosemide 20 mg/ Syringe 2 ml @ 4 mls/min TODAY@2045 IV 12/24/16 20:45 12/24/16 21:00 DC 12/24/16 20:41 4 MLS/MIN Vancomycin HCl 1000 mg/Sodium Chloride 270 ml @ 125 mls/hr NOW ONCE IV 12/25/16 08:00 12/25/16 10:09 DC 12/25/16 08:46 125 MLS/HR Epoetin Baljinder (Procrit Inj) 20,000 units TODAY@1400 IV 12/25/16 14:00 12/25/16 14:01 DC 12/25/16 14:51 20,000 UNITS Lidocaine HCl (Xylocaine 1% Inj (Local)) 2 ml ONE ONCE INFIL 12/25/16 12:55 12/25/16 13:08 DC 12/25/16 12:55 2 ML Iodixanol (Visipaque 50ml) 2,700 mg ONE ONCE IV 12/25/16 13:07 12/25/16 13:08 DC 12/25/16 13:07 2,700 MG Heparin Sodium/ Sodium Chloride (Heparin Sod/Ns 2 Units/Ml) 20 unit ONE ONCE IV 12/25/16 13:07 12/25/16 13:08 DC 12/25/16 13:07 20 UNIT Furosemide 40 mg/ Syringe 4 ml @ 4 mls/min 1400 ONCE IV 12/25/16 14:00 12/25/16 14:01 DC 12/25/16 14:40 4 MLS/MIN Potassium Chloride 20 meq/ Prmx 100 ml @ 50 mls/hr Q2H IV 12/25/16 14:00 12/25/16 19:59 DC 12/25/16 18:37 50 MLS/HR Vancomycin HCl 1000 mg/Sodium Chloride 270 ml @ 125 mls/hr Q24H IV 12/26/16 10:00 12/27/16 09:47 DC 12/26/16 10:02 125 MLS/HR Furosemide 40 mg/ Syringe 4 ml @ 4 mls/min 0945 ONCE IV 12/26/16 09:45 12/26/16 09:46 DC 12/26/16 10:02 4 MLS/MIN Methylprednisolone Sodium Succinate 125 mg/Syringe 2 ml @ 1.5 mls/min 0945 ONCE IV 12/26/16 09:45 12/26/16 09:46 DC 12/26/16 10:02 1.5 MLS/MIN Morphine Sulfate (MoRPHine SULFATE INJ) 2 mg Q1H PRN IV 12/26/16 12:00 12/29/16 11:59 12/27/16 09:12 2 MG Scopolamine (Transderm-Scop Patch) 1.5 mg Q72H TD 12/26/16 22:00 01/25/17 21:59 12/27/16 07:49 1.5 MG Miscellaneous Information (Check Scopolamine Patch Placement) 1 ea QS N/A 12/27/16 00:00 01/26/17 00:00 12/27/16 07:50 1 EA Subjective Met with the sons today along with Dr. Jarvis briefly. Review of Systems: Did not gather a review of systems with the patient - she appears to be declining Vital Signs Vital Signs Past 12 Hours Date Time Temp Pulse Resp B/P (MAP) Pulse Ox O2 Delivery O2 Flow Rate FiO2 12/27/16 08:00 Nasal Cannula 6.0 12/27/16 08:00 106 12/27/16 07:27 106 20 94 Nasal Cannula 60.0 60 12/27/16 06:02 103 20 142/93 (109) 94 High Flow Oxygen 60.0 55 12/27/16 04:01 36.6 108 19 130/80 (97) 92 High Flow Oxygen 60.0 55 12/27/16 04:00 High Flow Oxygen 60.0 60 12/27/16 02:01 96 21 130/91 (104) 94 High Flow Oxygen 60.0 55 12/27/16 01:42 99 20 97 Nasal Cannula 60.0 61 12/27/16 00:01 High Flow Oxygen 60.0 60 12/27/16 00:01 36.5 88 20 130/80 (97) 97 60.0 60 Physical Exam A formal physical exam was not done by myself today Constitutional: Level of Distress: NAD, chronically ill Psychiatric: Mental Status: active & alert Orientation: oriented except where noted Lungs: Auscuitation: CTA except as noted Cardiovascular: Heart Auscultation: RRR Abdomen: Inspection & Palpation: soft, no tenderness, guarding & rebound, distended Extremities: no edema Laboratory Last 24 Hours Test 12/27/16 05:16 White Blood Count 17.08 K/uL Red Blood Count 2.70 M/uL Hemoglobin 8.1 g/dL Hematocrit 24.5 % Mean Corpuscular Volume 90.7 fL Mean Corpuscular Hemoglobin 30.0 pg Mean Corpuscular Hemoglobin Concent 33.1 g/dl Platelet Count 215 K/uL Mean Platelet Volume 10.2 fL Neutrophils (%) (Auto) 74.9 % Lymphocytes (%) (Auto) 14.2 % Monocytes (%) (Auto) 3.0 % Eosinophils (%) (Auto) 0.0 % Basophils (%) (Auto) 0.4 % Neutrophils # (Auto) 12.79 K/uL Lymphocytes # (Auto) 2.43 K/uL Monocytes # (Auto) 0.51 K/uL Eosinophils # (Auto) 0.00 K/uL Basophils # (Auto) 0.07 K/uL RDW Standard Deviation 49.1 fL RDW Coefficient of Variation 15.0 % Immature Granulocyte % (Auto) 7.5 % Immature Granulocyte # (Auto) 1.28 K/uL Nucleated RBC Absolute Count (auto) 0.17 K/uL Nucleated Red Blood Cells % 1.0 % Toxic Granulation 2+ Polychromasia 1+ Activated Partial Thromboplast Time 40.1 SECONDS Partial Thromboplastin Ratio 1.5 Sodium Level 136 mmol/L Potassium Level 3.7 mmol/L Chloride Level 102 mmol/L Carbon Dioxide Level 22 mmol/L Anion Gap 12.0 mmol/L Blood Urea Nitrogen 33 mg/dl Creatinine 1.30 mg/dl Est Creatinine Clear Calc Drug Dose 28.2 ml/min Estimated GFR () 42.4 Estimated GFR (Non- 36.6 BUN/Creatinine Ratio 25.2 Random Glucose 156 mg/dl Calcium Level 8.0 mg/dl Total Bilirubin 1.4 mg/dl Direct Bilirubin 1.0 mg/dl Aspartate Amino Transf (AST/SGOT) 24 U/L Alanine Aminotransferase (ALT/SGPT) 37 U/L Alkaline Phosphatase 236 U/L C-Reactive Protein 14.10 mg/dl Total Protein 4.8 gm/dl Albumin 1.8 gm/dl Globulin 3.0 gm/dl Albumin/Globulin Ratio 0.6 Procalcitonin 1.85 ng/ml Assessment & Plan Today I met with the sons and explained to them the role of the Procrit that she was given 2 days ago. Her hemoglobin is 8.1 and stable. Conversations are now ongoing with the sons and Dr. Jarvis on the subject of pursuing comfort measures only. We'll continue to watch but from a distance.
--- NOTE | 2016-12-27 13:47 | Progress Note ---
Subjective Date of Service: Dec 27, 2016. 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 Problem List Medical Problems: (1) Acute kidney injury Status: Acute (2) Anemia Status: Acute (3) Chronic anemia Status: Acute (4) Colitis Status: Acute (5) Elevated troponin Status: Acute (6) Hypoxia Status: Acute Review of Systems Constitutional: + weakness, + fatigue Respiratory: + shortness of breath, + dyspnea on exertion, + dyspnea at rest, No cough Cardiac: + chest pain, + edema Abdomen: + pain, No nausea, No diarrhea Musculoskeletal: + joint pain, + muscle pain Objective Vital Signs Date Time Temp Pulse Resp B/P (MAP) Pulse Ox O2 Delivery O2 Flow Rate FiO2 12/27/16 13:25 36.6 110 27 94 6.0 12/27/16 12:00 Nasal Cannula 6.0 12/27/16 12:00 110 27 12/27/16 10:00 109 12/27/16 08:00 Nasal Cannula 6.0 12/27/16 08:00 106 12/27/16 07:27 106 20 94 Nasal Cannula 60.0 60 12/27/16 06:02 103 20 142/93 (109) 94 High Flow Oxygen 60.0 55 12/27/16 04:01 36.6 108 19 130/80 (97) 92 High Flow Oxygen 60.0 55 12/27/16 04:00 High Flow Oxygen 60.0 60 12/27/16 02:01 96 21 130/91 (104) 94 High Flow Oxygen 60.0 55 12/27/16 01:42 99 20 97 Nasal Cannula 60.0 61 12/27/16 00:01 High Flow Oxygen 60.0 60 12/27/16 00:01 36.5 88 20 130/80 (97) 97 60.0 60 12/26/16 22:01 101 33 132/88 (103) 96 High Flow Oxygen 60.0 60 12/26/16 21:11 102 19 128/88 (101) 99 High Flow Oxygen 60.0 70 12/26/16 20:01 36.5 105 22 128/81 (97) 99 High Flow Oxygen 60.0 70 12/26/16 20:00 99 High Flow Oxygen 60.0 70 12/26/16 19:28 108 20 99 Nasal Cannula 60.0 88 12/26/16 18:01 108 26 137/87 (104) 99 High Flow Oxygen 90 12/26/16 16:01 110 17 141/93 (109) 99 High Flow Oxygen 90 12/26/16 16:00 High Flow Oxygen 90 12/26/16 15:13 109 20 99 Nasal Cannula 60.0 80 12/26/16 14:01 110 26 139/80 (99) 97 High Flow Oxygen 90 Physical Exam General Appearance: + moderate distress, + thin Eyes: PERRL, EOMI Respiratory/Chest: + respiratory distress, + decreased breath sounds, + accessory muscle use Cardiovascular: + tachycardia, + systolic murmur Abdomen: + abnormal bowel sounds, + distended, + tenderness Extremities: + pedal edema, + swelling Neurologic/Psychiatric: alert, + depressed affect Laboratory Results Last 24 Hours Test 12/27/16 05:16 White Blood Count 17.08 K/uL Red Blood Count 2.70 M/uL Hemoglobin 8.1 g/dL Hematocrit 24.5 % Mean Corpuscular Volume 90.7 fL Mean Corpuscular Hemoglobin 30.0 pg Mean Corpuscular Hemoglobin Concent 33.1 g/dl Platelet Count 215 K/uL Mean Platelet Volume 10.2 fL Neutrophils (%) (Auto) 74.9 % Lymphocytes (%) (Auto) 14.2 % Monocytes (%) (Auto) 3.0 % Eosinophils (%) (Auto) 0.0 % Basophils (%) (Auto) 0.4 % Neutrophils # (Auto) 12.79 K/uL Lymphocytes # (Auto) 2.43 K/uL Monocytes # (Auto) 0.51 K/uL Eosinophils # (Auto) 0.00 K/uL Basophils # (Auto) 0.07 K/uL RDW Standard Deviation 49.1 fL RDW Coefficient of Variation 15.0 % Immature Granulocyte % (Auto) 7.5 % Immature Granulocyte # (Auto) 1.28 K/uL Nucleated RBC Absolute Count (auto) 0.17 K/uL Nucleated Red Blood Cells % 1.0 % Toxic Granulation 2+ Polychromasia 1+ Activated Partial Thromboplast Time 40.1 SECONDS Partial Thromboplastin Ratio 1.5 Sodium Level 136 mmol/L Potassium Level 3.7 mmol/L Chloride Level 102 mmol/L Carbon Dioxide Level 22 mmol/L Anion Gap 12.0 mmol/L Blood Urea Nitrogen 33 mg/dl Creatinine 1.30 mg/dl Est Creatinine Clear Calc Drug Dose 28.2 ml/min Estimated GFR () 42.4 Estimated GFR (Non- 36.6 BUN/Creatinine Ratio 25.2 Random Glucose 156 mg/dl Calcium Level 8.0 mg/dl Total Bilirubin 1.4 mg/dl Direct Bilirubin 1.0 mg/dl Aspartate Amino Transf (AST/SGOT) 24 U/L Alanine Aminotransferase (ALT/SGPT) 37 U/L Alkaline Phosphatase 236 U/L C-Reactive Protein 14.10 mg/dl Total Protein 4.8 gm/dl Albumin 1.8 gm/dl Globulin 3.0 gm/dl Albumin/Globulin Ratio 0.6 Procalcitonin 1.85 ng/ml Assessment and Plan 86 F with acute diastolic heart failure with a history of chronic diastolic heart failure with severe , mod MR, CKD3 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 and recent pulmonary hemorrhage with discussion of 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, Thrombophilia with acute DVT and previoius PE x 2 even on coumadin, , seizure d/o, h/o cerebellar CVA, concern for jaundice lead to ercp with sphincterotomy and stone sweep from CBD, but previous HIDA showed non visualization of GB, not a surgical candidate and family does not with for cholecystostomy tube or transfer After a prolonged discussion, with all three children a decision was reached to proceed to comfort care, stop antibiotics, eventually reduce oxygen to nc and understand that is expected acute diastolic heart failure from severe , in past discussed TaVr and felt not to be good candidate, diuresis without reduction in Oxygen requirements or improved x ray n, ECHO without changes, discussion if CXR findings could be alveolar hemorrhage as discussed in past acute blood loss anemia, on anticoagulation, no over clues for blood loss consider CT negative for retroperitoneal hemorrhage, transfused 2 units, stopped heparin, placed IVC filter 12/25 as has acute LLE DVT, no obious blood loss, did have epo with heme oversight one dose, continues on ppi This pt had persistent leukocytosis even on antibiotics, concern for cholecystitis, if needed would require a percutaneous cholecytotomy tube, family is not wishing to pursue this and now transitioned to comfort care earlier in hospital stay, abdominal pain and anemia,s/p colonoscopy on 12/[address] Macias for disimpaction. - Had hematemesis/coffee ground emesis on 12/17, heparin gtt(for acute DVT) held, then restarted - With h/o recent GI bleed on previous admission prompted - EGD completed on 12/17 showing LA Grade C reflux esophagitis, hiatal hernia and few gastric polyps. - ERCP completed on 12/22 with gallstone removal-sphincterotomy, concern for continued cholecystitis, not surgical candidate was placed on antibiotics( since stopped on comfort) Elevated bilirubin Completed EUS/ERCP 12/[address] Fischer. Urinary retention secondary to constipation-pt cut her Hu with scissors with episode of delirium-> retention resolved with Hu replaced 12/19 CKD stage III, Dispo-discussion with family has lead to comfort care, local son Travis struggles with accepting the decision but two other siblings are at peace with it
--- NOTE | 2016-12-27 13:59 | Gastroenterology Progress Note ---
Progress Note Date of Service: Dec 27, 2016 Subjective Pt evaluation today including: conversation w/ patient, physical exam, chart review, lab review, review of studies, review of inpatient medication list CC F/U CBD stone, elev LFTS, HPI Reviewed chart and comfort measures planned for patient. She denies abd pain. Per son the patient is eating small amount of food. Review of Systems Respiratory: No shortness of breath Cardiac: No chest pain Medications Current Inpatient Medications Medications (Trade) Dose Ordered Sig/Phillip Route Start Time Stop Time Status Last Admin Dose Admin Mupirocin (Bactroban 2% Oint) 1 appln DAILY EXT 12/15/16 08:00 01/14/17 07:59 12/26/16 08:00 1 APPLN Ondansetron HCl (Zofran Inj) 4 mg Q8H PRN IV 12/16/16 19:30 01/15/17 19:29 12/19/16 16:05 4 MG Ipratropium [place] (Atrovent 0.02% 0.5MG/2.5ML Neb) 0.5 mg Q6R INH 12/24/16 03:00 01/23/17 02:59 12/27/16 07:26 0.5 MG Levalbuterol (Xopenex 1.25MG/ 0.5ML Neb) 1.25 mg Q6R INH 12/24/16 03:00 01/23/17 02:59 12/27/16 07:26 1.25 MG Ipratropium [place] (Atrovent 0.02% 0.5MG/2.5ML Neb) 0.5 mg Q2H PRN INH 12/23/16 22:45 01/22/17 22:44 Levalbuterol (Xopenex 1.25MG/ 0.5ML Neb) 1.25 mg Q2H PRN INH 12/23/16 22:45 01/22/17 22:44 Pantoprazole Sodium 40 mg/ Syringe 10 ml @ 5 mls/min BID IV 12/24/16 09:00 01/23/17 08:14 12/26/16 08:19 5 MLS/MIN Morphine Sulfate (MoRPHine SULFATE INJ) 2 mg Q1H PRN IV 12/26/16 12:00 12/29/16 11:59 12/27/16 09:12 2 MG Scopolamine (Transderm-Scop Patch) 1.5 mg Q72H TD 12/26/16 22:00 01/25/17 21:59 12/27/16 07:49 1.5 MG Miscellaneous (Remove Transderm-Scop Patch) 1 ea Q72H N/A 12/29/16 22:00 01/28/17 21:59 Miscellaneous Information (Check Scopolamine Patch Placement) 1 ea QS N/A 12/27/16 00:00 01/26/17 00:00 12/27/16 07:50 1 EA Atropine Sulfate (Atropine Sulfate 1% Oph Soln) 4 drops Q1H PRN PO 12/26/16 18:45 01/25/17 18:44 Lorazepam (Ativan Inj) 0.5 mg Q1H PRN IV 12/26/16 18:45 01/25/17 18:44 Lorazepam (Ativan Inj) 1 mg Q1H PRN IV 12/26/16 18:45 01/25/17 18:44 Objective Vital Signs Date Time Temp Pulse Resp B/P (MAP) Pulse Ox O2 Delivery O2 Flow Rate FiO2 12/27/16 13:25 36.6 110 27 94 6.0 12/27/16 12:00 Nasal Cannula 6.0 12/27/16 12:00 110 27 12/27/16 10:00 109 12/27/16 08:00 Nasal Cannula 6.0 12/27/16 08:00 106 12/27/16 07:27 106 20 94 Nasal Cannula 60.0 60 12/27/16 06:02 103 20 142/93 (109) 94 High Flow Oxygen 60.0 55 12/27/16 04:01 36.6 108 19 130/80 (97) 92 High Flow Oxygen 60.0 55 12/27/16 04:00 High Flow Oxygen 60.0 60 12/27/16 02:01 96 21 130/91 (104) 94 High Flow Oxygen 60.0 55 12/27/16 01:42 99 20 97 Nasal Cannula 60.0 61 12/27/16 00:01 High Flow Oxygen 60.0 60 12/27/16 00:01 36.5 88 20 130/80 (97) 97 60.0 60 12/26/16 22:01 101 33 132/88 (103) 96 High Flow Oxygen 60.0 60 12/26/16 21:11 102 19 128/88 (101) 99 High Flow Oxygen 60.0 70 12/26/16 20:01 36.5 105 22 128/81 (97) 99 High Flow Oxygen 60.0 70 12/26/16 20:00 99 High Flow Oxygen 60.0 70 12/26/16 19:28 108 20 99 Nasal Cannula 60.0 88 12/26/16 18:01 108 26 137/87 (104) 99 High Flow Oxygen 90 12/26/16 16:01 110 17 141/93 (109) 99 High Flow Oxygen 90 12/26/16 16:00 High Flow Oxygen 90 12/26/16 15:13 109 20 99 Nasal Cannula 60.0 80 12/26/16 14:01 110 26 139/80 (99) 97 High Flow Oxygen 90 Physical Exam General Appearance: WD/WN, no apparent distress Respiratory/Chest: normal breath sounds, no respiratory distress Cardiovascular: no murmur Abdomen: normal bowel sounds, non tender, soft, no organomegaly Laboratory Results Last 24 Hours Test 12/27/16 05:16 White Blood Count 17.08 K/uL Red Blood Count 2.70 M/uL Hemoglobin 8.1 g/dL Hematocrit 24.5 % Mean Corpuscular Volume 90.7 fL Mean Corpuscular Hemoglobin 30.0 pg Mean Corpuscular Hemoglobin Concent 33.1 g/dl Platelet Count 215 K/uL Mean Platelet Volume 10.2 fL Neutrophils (%) (Auto) 74.9 % Lymphocytes (%) (Auto) 14.2 % Monocytes (%) (Auto) 3.0 % Eosinophils (%) (Auto) 0.0 % Basophils (%) (Auto) 0.4 % Neutrophils # (Auto) 12.79 K/uL Lymphocytes # (Auto) 2.43 K/uL Monocytes # (Auto) 0.51 K/uL Eosinophils # (Auto) 0.00 K/uL Basophils # (Auto) 0.07 K/uL RDW Standard Deviation 49.1 fL RDW Coefficient of Variation 15.0 % Immature Granulocyte % (Auto) 7.5 % Immature Granulocyte # (Auto) 1.28 K/uL Nucleated RBC Absolute Count (auto) 0.17 K/uL Nucleated Red Blood Cells % 1.0 % Toxic Granulation 2+ Polychromasia 1+ Activated Partial Thromboplast Time 40.1 SECONDS Partial Thromboplastin Ratio 1.5 Sodium Level 136 mmol/L Potassium Level 3.7 mmol/L Chloride Level 102 mmol/L Carbon Dioxide Level 22 mmol/L Anion Gap 12.0 mmol/L Blood Urea Nitrogen 33 mg/dl Creatinine 1.30 mg/dl Est Creatinine Clear Calc Drug Dose 28.2 ml/min Estimated GFR () 42.4 Estimated GFR (Non- 36.6 BUN/Creatinine Ratio 25.2 Random Glucose 156 mg/dl Calcium Level 8.0 mg/dl Total Bilirubin 1.4 mg/dl Direct Bilirubin 1.0 mg/dl Aspartate Amino Transf (AST/SGOT) 24 U/L Alanine Aminotransferase (ALT/SGPT) 37 U/L Alkaline Phosphatase 236 U/L C-Reactive Protein 14.10 mg/dl Total Protein 4.8 gm/dl Albumin 1.8 gm/dl Globulin 3.0 gm/dl Albumin/Globulin Ratio 0.6 Procalcitonin 1.85 ng/ml Assessment and Plan elevated WBC--improved CBD stones--stable post ERCP with removal 12/22/16 Esophagitis--continue protonix obstipation--recommend Miralax for maintenance and when acute issues of today resolved recommend increase Miralax to tid and larger amounts as needed. elevated LFTS from stones ---improved anemia--unclear etiology with CT chest/A/P Neg and no stools to indicate GI bleeding Will sign off since comfort measures only planned. Please call for further questions.
[2016-12-28] MEDS: IPRATROPIUM BROMIDE NEB SOLN 0.02% 2.5 ML VIAL INH SCH ×2 (02:01→07:07)
[2016-12-28] MEDS: LEVALBUTEROL 1.25MG/0.5ML NEB INH SCH ×2 (02:01→07:07)
[2016-12-28] MEDS: LORAZEPAM INJ 1 MG in SYRINGE 0.5 ML IV PRN ×3 (04:11→18:49)
[2016-12-28] MEDS ORDERED: LORAZEPAM INJ 0.5 MG in SYRINGE 0.25 ML IV PRN (04:15)
[2016-12-28] MEDS: CHECK SCOPOLAMINE PATCH PLACEMENT SCH ×2 (08:40→16:00)
[2016-12-28] MEDS: MUPIROCIN 2% OINT 22 GM TUBE EXT SCH (08:41)
[2016-12-28] MEDS: PANTOprazole INJ 40 MG in SYRINGE 0 ML IV SCH (08:41)
[2016-12-28] MEDS ORDERED: VANCOMYCIN TROUGH SCH (09:30)
--- NOTE | 2016-12-28 12:13 | Hospitalist Progress Note ---
Hospitalist Progress Note Date of Service Dec 28, 2016. Subjective Pt evaluation today including: conversation w/ family, physical exam Voiding: sweet catheter in place Family all at bedside. Pt received IV ativan overnight and again now. Appears comfortable. Discussed comfort care and EOL discussion with family. Additional Comments: not obtainable due to somnolence Objective Vital Signs Date Time Temp Pulse Resp B/P (MAP) Pulse Ox O2 Delivery O2 Flow Rate FiO2 12/28/16 00:00 Nasal Cannula 6.0 12/27/16 20:00 Nasal Cannula 6.0 12/27/16 19:07 106 20 83 Nasal Cannula 6.0 12/27/16 16:00 Nasal Cannula 6.0 12/27/16 15:19 102 20 89 Nasal Cannula 6.0 12/27/16 14:00 112 26 12/27/16 13:25 36.6 110 27 94 6.0 12/27/16 12:00 Nasal Cannula 6.0 12/27/16 12:00 110 27 Physical Exam General Appearance: no apparent distress, + thin (sleeping in bed, open mouth breathing) Respiratory/Chest: lungs clear, normal breath sounds, no respiratory distress Cardiovascular: + tachycardia (with early beats), + pertinent finding (weeping edematous legs L>R 2+ edema) Abdomen: non tender, soft Neurologic/Psychiatric: + pertinent finding (somnolent) Skin: normal color Assessment and Plan 86 F with acute diastolic heart failure with a history of chronic diastolic heart failure with severe , mod MR, CKD3 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 Initially presented from home with massive fecal impaction and found to also have choledocholithiasis. After a prolonged discussion, with all three children a decision was reached to proceed to comfort care, stop antibiotics, eventually reduce oxygen to nc and understand that is expected acute diastolic heart failure from severe , in past discussed TaVr and felt not to be good candidate, diuresis without reduction in Oxygen requirements or improved x ray n, ECHO without changes, discussion if CXR findings could be alveolar hemorrhage as discussed in past acute blood loss anemia, on anticoagulation, no over clues for blood loss consider CT negative for retroperitoneal hemorrhage, transfused 2 units, stopped heparin, placed IVC filter 12/25 as has acute LLE DVT, no obvious blood loss, did have epo with heme oversight one dose,will dc ppi today This pt had persistent leukocytosis even on antibiotics, concern for cholecystitis, if needed would require a percutaneous cholecystostomy tube, family is not wishing to pursue this and now transitioned to comfort care Earlier in hospital stay, abdominal pain and anemia,s/p colonoscopy on 12/[address] Macias for disimpaction. - Had hematemesis/coffee ground emesis on 12/17, heparin gtt(for acute DVT) held, then restarted - With h/o recent GI bleed on previous admission prompted - EGD completed on 12/17 showing LA Grade C reflux esophagitis, hiatal hernia and few gastric polyps. - ERCP completed on 12/22 with gallstone removal-sphincterotomy, concern for continued cholecystitis, not surgical candidate was placed on antibiotics( since stopped on comfort) Elevated bilirubin Completed EUS/ERCP 12/[address] Fischer. Urinary retention secondary to constipation-pt cut her Sweet with scissors with episode of delirium-> retention resolved with Sweet replaced 12/19 CKD stage III, Dispo-discussion with family has lead to comfort care, local son Travis struggles with accepting the decision but two other siblings are at peace with it Palliative Care consult today Comfort measures. Expect within 7 days
--- NOTE | 2016-12-28 16:03 | Palliative Care Consultation ---
Consultation Date of Consultation: Dec 28, 2016. Requesting Physician: Dr. Serna Attending Physician: Dr. Serna Reason for Consultation: Comfort care History of Present Illness This 86 year old female presented to the ED twelve days ago with c/o no bowel movement for 5-[address] abd/pelvis showed fecal impaction, choledocholithiasis and cholelithiasis with moderate biliary ductal dilatation. Admitted with obstipation. Patient also significantly anemic. This patient has a history of severe aortic stenosis and several admissions recently with possible alveolar hemorrhage. A few months ago, patient was in "good" health and lived completely independently. She has had a steady and rather fast decline. She was adamantly refusing any home services after her first admission. Local son, rTavis, lives only about a mile from her and would help out. A daughter also lives locally. On 12/17, underwent EGD after she had some coffee ground emesis, no active bleeding found. On 12/21 patient underwent colonoscopy for heme positive stool but bowel prep was poor. Was found on admission to have DVT, heparin was initiated, held after coffee ground emesis, then restarted after clear EGD. Patient did require blood transfusion. Had surgical and GI consults for the cholelithiasis and choledocholithiasis. ERCP eventually performed with gall stone sweep. Also had IVC filter placed on . During this hospital stay, patient continued to decline and deteriorate. Multiple conversations had been had about transitioning to comfort measures only , family was struggling with decision. Finally, the decision was made two days ago to transfer to fourth floor and place patient on comfort measures only. palliative care consulted for comfort care and support family. Past Medical/Surgical History Medical History: Aortic Valve Disorder Atrial Fibrillation Chronic Kidney Disease Congestive Heart Failure Coronary Atherosclerosis Of [place] Coronary Vessel Hypertension Nos Nephrotic Syndrome Osteoporosis Tia,& Cerebral Infarction W/Out Res Deficits Tietze's Disease Social History Smoking Status: Never Smoker History of Alcohol Use: No Drug Use: none Marital Status: Housing Status: lives with family Occupation Status: retired Review of Systems unable to obtain ROS due to patient condition Allergies Coded Allergies: Doxycycline (Verified Allergy, Intermediate, RASH, 12/21/16) Trimethoprim (Verified Allergy, Intermediate, RASH, 12/21/16) Adhesives (Verified Allergy, Unknown, HAD RXN TO HOLTER MONITOR PATCHES, ) Amoxicillin (Verified Allergy, Unknown, RASH, 12/21/16) Atorvastatin (Verified Allergy, Unknown, UNKNOWN, 12/21/16) Carbamazepine (Verified Allergy, Unknown, 12/21/16) Hydantoins (Verified Allergy, Unknown, 12/21/16) Levofloxacin (Verified Allergy, Unknown, UNKNOWN, 12/21/16) Penicillins (Verified Allergy, Unknown, AMOXIL,HAS TOLERATED CEPHS, ) has tolerated cefepime and ceftriaxone on previous admissions Phenytoin (Verified Allergy, Unknown, 12/21/16) Sulfamethoxazole w/Trimethoprim (Unverified Allergy, Unknown, VASCULITIS, 12/21/16) Medications Current Inpatient Medications Medications (Trade) Dose Ordered Sig/Phillip Route Start Time Stop Time Status Last Admin Dose Admin Mupirocin (Bactroban 2% Oint) 1 appln DAILY EXT 12/15/16 08:00 01/14/17 07:59 12/26/16 08:00 1 APPLN Ondansetron HCl (Zofran Inj) 4 mg Q8H PRN IV 12/16/16 19:30 01/15/17 19:29 12/19/16 16:05 4 MG Ipratropium [place] (Atrovent 0.02% 0.5MG/2.5ML Neb) 0.5 mg Q2H PRN INH 12/23/16 22:45 01/22/17 22:44 Levalbuterol (Xopenex 1.25MG/ 0.5ML Neb) 1.25 mg Q2H PRN INH 12/23/16 22:45 01/22/17 22:44 Morphine Sulfate (MoRPHine SULFATE INJ) 2 mg Q1H PRN IV 12/26/16 12:00 01/02/17 11:59 12/27/16 19:00 2 MG Scopolamine (Transderm-Scop Patch) 1.5 mg Q72H TD 12/26/16 22:00 01/25/17 21:59 12/27/16 07:49 1.5 MG Miscellaneous (Remove Transderm-Scop Patch) 1 ea Q72H N/A 12/29/16 22:00 01/28/17 21:59 Miscellaneous Information (Check Scopolamine Patch Placement) 1 ea QS N/A 12/27/16 00:00 01/26/17 00:00 12/28/16 08:40 1 EA Atropine Sulfate (Atropine Sulfate 1% Oph Soln) 4 drops Q1H PRN PO 12/26/16 18:45 01/25/17 18:44 Heparin Sodium (Porcine) (Heparin 10 Unit/ ml 5 ml Flush) 5 ml PRN PRN FLUSH 12/27/16 23:45 01/26/17 23:44 Lorazepam 0.5 mg/ Syringe 0.5 ml @ 0.5 mls/min Q1H PRN IV 12/28/16 04:15 01/27/17 04:14 Lorazepam 1 mg/ Syringe 1 ml @ 1 mls/min Q1H PRN IV 12/28/16 04:15 01/27/17 04:14 12/28/16 11:42 1 MLS/MIN Physical Exam Date Time Temp Pulse Resp B/P (MAP) Pulse Ox O2 Delivery O2 Flow Rate FiO2 12/28/16 08:45 Nasal Cannula 6.0 12/28/16 00:00 Nasal Cannula 6.0 12/27/16 20:00 Nasal Cannula 6.0 12/27/16 19:07 106 20 83 Nasal Cannula 6.0 12/27/16 16:00 Nasal Cannula 6.0 General Appearance: no apparent distress, + thin Neck: supple, no JVD Respiratory: no respiratory distress, no accessory muscle use, + pertinent finding (no secretions noted) Cardiovascular: + systolic murmur, + pertinent finding (+ pitting edema to bilateral feet, R > L) Abdomen: normal bowel sounds, soft Neurologic/Psychiatric: + pertinent finding (obtunded) Assessment & Plan Palliative Performance Scale: 10 % Problem list: Palliative care recommendations: discussed with two sons including Travis NAVARRETE, and patient's daughter. Also with Dr. Serna -Patient is comfort measures only. -Level 5 DNR/DNI. -Continue PRN morphine and ativan as is for now as patient is comfortable. Can increase if needed. -Conversation held with three children. They all understand and agree that patient is expected to within hours to possibly days. -Will reevaluate tomorrow, but no skilled need for GIP at this time and uncertain if patient would be stable for transfer. Today, seeing her the first time during this admission, I do no think patient could survive transfer. Thank you kindly for this consult. I will follow as needed.
[2016-12-29] MEDS: MoRPHine SULFATE 2 MG/ML CARP IV PRN ×3 (03:58→08:14)
[2016-12-29] MEDS: MUPIROCIN 2% OINT 22 GM TUBE EXT SCH (08:00)
[2016-12-29] MEDS: CHECK SCOPOLAMINE PATCH PLACEMENT SCH ×4 (08:20→23:31)
[2016-12-29] MEDS: LORAZEPAM INJ 1 MG in SYRINGE 0.5 ML IV PRN ×3 (08:45→21:25)
--- NOTE | 2016-12-29 12:13 | Hospitalist Progress Note ---
Hospitalist Progress Note Date of Service Dec 29, 2016. Subjective Pt evaluation today including: conversation w/ family, physical exam Pt had some agitation this AM relieved with ativan and morphine. Now resting comfortably.Son and daughter at bedside Additional Comments: unobtainable due to somnolence Objective Vital Signs Date Time Temp Pulse Resp B/P (MAP) Pulse Ox O2 Delivery O2 Flow Rate FiO2 12/29/16 00:00 Nasal Cannula 6.0 12/28/16 16:00 Nasal Cannula 6.0 Physical Exam General Appearance: no apparent distress (open-mouth breathing, some longer pauses between breaths), + thin Respiratory/Chest: no respiratory distress Extremities: + swelling (3+ pitting edema with some weeping left leg, 2+ pitting edema right leg) Skin: no rash Assessment and Plan 86 F with acute diastolic heart failure with a history of chronic diastolic heart failure with severe , mod MR, CKD3 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 Initially presented from home with massive fecal impaction and found to also have choledocholithiasis. After a prolonged discussion, with all three children a decision was reached to proceed to comfort care, stop antibiotics, eventually reduce oxygen to nc and understand that is expected acute diastolic heart failure from severe , in past discussed TaVr and felt not to be good candidate, diuresis without reduction in Oxygen requirements or improved x ray n, ECHO without changes, discussion if CXR findings could be alveolar hemorrhage as discussed in past acute blood loss anemia, was on anticoagulation for DVT, CT negative for retroperitoneal hemorrhage, transfused 2 units, stopped heparin, placed IVC filter 12/25 as has acute LLE DVT, no obvious blood loss This pt had persistent leukocytosis even on antibiotics, concern for cholecystitis, if needed would require a percutaneous cholecystostomy tube, family is not wishing to pursue this and now transitioned to comfort care Earlier in hospital stay, abdominal pain and anemia,s/p colonoscopy on 12/[address] Macias for disimpaction. - Had hematemesis/coffee ground emesis on 12/17, heparin gtt(for acute DVT) held, then restarted - With h/o recent GI bleed on previous admission prompted - EGD completed on 12/17 showing LA Grade C reflux esophagitis, hiatal hernia and few gastric polyps. - ERCP completed on 12/22 with gallstone removal-sphincterotomy, concern for continued cholecystitis, not surgical candidate was placed on antibiotics( since stopped on comfort) Elevated bilirubin Completed EUS/ERCP 12/[address] Fischer. Urinary retention secondary to constipation-pt cut her Hu with scissors with episode of delirium-> retention resolved with Hu replaced 12/19 -continue Hu for comfort CKD stage III, no further labs being drawn, still making urine Dispo-discussion with family has lead to comfort care Palliative Care consult appreciated Comfort measures. Expect within 7 days
[2016-12-29] MEDS: SCOPOLAMINE 1.5 MG TDSY TD SCH (21:29)
[2016-12-30] MEDS: MoRPHine SULFATE 2 MG/ML CARP IV PRN ×4 (07:20→23:48)
[2016-12-30] MEDS: MUPIROCIN 2% OINT 22 GM TUBE EXT SCH (07:20)
[2016-12-30] MEDS: CHECK SCOPOLAMINE PATCH PLACEMENT SCH ×3 (07:21→23:51)
[2016-12-30] MEDS: LORAZEPAM INJ 1 MG in SYRINGE 0.5 ML IV PRN ×4 (11:47→21:22)
[2016-12-30] MEDS: ATROPINE SULFATE 1% OP SOLN 5 ML BTL PO PRN (23:51)
[2016-12-31] MEDS: LORAZEPAM INJ 1 MG in SYRINGE 0.5 ML IV PRN ×9 (00:15→23:45)
--- NOTE | 2016-12-31 00:26 | Hospitalist Progress Note ---
Hospitalist Progress Note Date of Service Dec 30, 2016. Subjective Pt evaluation today including: conversation w/ family some mild agitation this AM requiring ativan, some morphine, otherwise comfortable, UOP dropping off Additional Comments: unobtainable Objective Vital Signs Date Time Temp Pulse Resp B/P (MAP) Pulse Ox O2 Delivery O2 Flow Rate FiO2 12/30/16 16:20 Nasal Cannula 6.0 12/30/16 08:00 Nasal Cannula 6.0 Physical Exam General Appearance: no apparent distress Respiratory/Chest: + pertinent finding (Danilo-Hart breathing) Extremities: + swelling (3+ pitting edema legs bilat) Skin: no rash Assessment and Plan 86 F with acute diastolic heart failure with a history of chronic diastolic heart failure with severe , mod MR, CKD3 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 Initially presented from home with massive fecal impaction and found to also have choledocholithiasis. After a prolonged discussion, with all three children a decision was reached to proceed to comfort care, stop antibiotics, eventually reduce oxygen to nc and understand that is expected acute diastolic heart failure from severe , in past discussed TaVr and felt not to be good candidate, diuresis without reduction in Oxygen requirements or improved x ray n, ECHO without changes, discussion if CXR findings could be alveolar hemorrhage as discussed in past acute blood loss anemia, was on anticoagulation for DVT, CT negative for retroperitoneal hemorrhage, transfused 2 units, stopped heparin, placed IVC filter 12/25 as has acute LLE DVT, no obvious blood loss This pt had persistent leukocytosis even on antibiotics, concern for cholecystitis, if needed would require a percutaneous cholecystostomy tube, family is not wishing to pursue this and now transitioned to comfort care Earlier in hospital stay, abdominal pain and anemia,s/p colonoscopy on 12/[address] Macias for disimpaction. - Had hematemesis/coffee ground emesis on 12/17, heparin gtt(for acute DVT) held, then restarted - With h/o recent GI bleed on previous admission prompted - EGD completed on 12/17 showing LA Grade C reflux esophagitis, hiatal hernia and few gastric polyps. - ERCP completed on 12/22 with gallstone removal-sphincterotomy, concern for continued cholecystitis, not surgical candidate was placed on antibiotics( since stopped on comfort) Elevated bilirubin Completed EUS/ERCP 12/[address] Fischer. Urinary retention secondary to constipation-pt cut her Hu with scissors with episode of delirium-> retention resolved with Hu replaced 12/19 -continue Hu for comfort CKD stage III, no further labs being drawn, still making urine but now decreasing as kidneys likely failing, dehydrated Dispo-discussion with family has lead to comfort care Palliative Care consult appreciated Comfort measures. Expect within 1-2 days
[2016-12-31] MEDS: MoRPHine SULFATE 2 MG/ML CARP IV PRN ×9 (01:32→22:36)
[2016-12-31] MEDS: ATROPINE SULFATE 1% OP SOLN 5 ML BTL PO PRN ×3 (01:33→23:45)
[2016-12-31] MEDS: MUPIROCIN 2% OINT 22 GM TUBE EXT SCH (07:21)
[2016-12-31] MEDS: CHECK SCOPOLAMINE PATCH PLACEMENT SCH ×3 (07:31→23:23)
--- NOTE | 2016-12-31 12:06 | Hospitalist Progress Note ---
Hospitalist Progress Note Date of Service Dec 31, 2016. Subjective Pt evaluation today including: conversation w/ family Pt comfortable. less UOP, should pass away soon Additional Comments: unobtainable Objective Vital Signs Date Time Temp Pulse Resp B/P (MAP) Pulse Ox O2 Delivery O2 Flow Rate FiO2 12/31/16 08:00 Nasal Cannula 6.0 12/31/16 02:34 Nasal Cannula 6.0 12/30/16 16:20 Nasal Cannula 6.0 Physical Exam General Appearance: no apparent distress (lying in bed, open-mouthed breathing) Extremities: + swelling (3+ pitting edema LEs bilat) Skin: + mottled (mottled and cold right foot, suspect arterial clot) Assessment and Plan 86 F with acute diastolic heart failure with a history of chronic diastolic heart failure with severe , mod MR, CKD3 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 Initially presented from home with massive fecal impaction and found to also have choledocholithiasis. After a prolonged discussion, with all three children a decision was reached to proceed to comfort care, stop antibiotics, eventually reduce oxygen to nc and understand that is expected Acute diastolic heart failure from severe , in past discussed TaVr and felt not to be good candidate, diuresis without reduction in Oxygen requirements or improved x ray n, ECHO without changes, discussion if CXR findings could be alveolar hemorrhage as discussed in past Acute blood loss anemia, was on anticoagulation for DVT, CT negative for retroperitoneal hemorrhage, transfused 2 units, stopped heparin, placed IVC filter 12/25 as has acute LLE DVT, no obvious blood loss This pt had persistent leukocytosis even on antibiotics, concern for cholecystitis, if needed would require a percutaneous cholecystostomy tube, family is not wishing to pursue this and now transitioned to comfort care Earlier in hospital stay, abdominal pain and anemia,s/p colonoscopy on 12/[address] Macias for disimpaction. - Had hematemesis/coffee ground emesis on 12/17, heparin gtt(for acute DVT) held, then restarted - With h/o recent GI bleed on previous admission prompted - EGD completed on 12/17 showing LA Grade C reflux esophagitis, hiatal hernia and few gastric polyps. - ERCP completed on 12/22 with gallstone removal-sphincterotomy, concern for continued cholecystitis, not surgical candidate was placed on antibiotics( since stopped on comfort) Elevated bilirubin Completed EUS/ERCP 12/[address] Fischer. Urinary retention secondary to constipation-pt cut her Hu with scissors with episode of delirium-> retention resolved with Hu replaced 12/19 -continue Hu for comfort CKD stage III, no further labs being drawn, still making urine but now decreasing as kidneys likely failing, dehydrated Dispo-discussion with family has lead to comfort care Palliative Care consult appreciated Comfort measures. Expect within 1-2 days
[2017-01-01] MEDS: MoRPHine SULFATE 2 MG/ML CARP IV PRN (00:52)
--- NOTE | 2017-01-01 02:20 | Death Pronouncement Note ---
Pronouncement Note Date & Time of Jan 01, 2017. 0150 Pronouncement At time of pronouncement the patients pupils were fixed and dilated, there was no spontaneous respiratory effort, no palpable pulse, no audible heart tones, and no response to pain or voice.
--- NOTE | 2017-01-17 15:41 | Death Summary ---
Summary of Admission Date Dec 14, 2016 at 16:49 Date & Time of Jan 01, 2017. 0150 Cause of Acute diastolic CHF Acute calculous Cholecystitis with choledocholithiasis Secondary Diagnoses Chronic diastolic heart failure Severe Moderate MR CKD stage III H/o membranous GN/nephrotic syndrome and dilantin-induced AIN requiring HD in 2008 Previous suspected pulmonary/alveolar hemorrhage Acute DVT History of PE Seizure d/o H/o cerebellar CVA Massive fecal impaction Acute hypoxemic respiratory failure Acute blood loss anemia Leukocytosis Hematemesis LA Grade C reflux esophagitis Hiatal hernia Gastric polyps Urinary retention secondary to constipation Hospital Course 86 F with acute diastolic heart failure with a history of chronic diastolic heart failure with severe , mod MR, CKD3 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 Initially presented from home with massive fecal impaction and found to also have choledocholithiasis. After a prolonged discussion, with all three children a decision was reached to proceed to comfort care, stop antibiotics, eventually reduce oxygen to [place]c and understand that is expected Acute diastolic heart failure from severe , in past discussed TaVr and felt not to be good candidate, diuresis without reduction in Oxygen requirements or improved x ray n, ECHO without changes, discussion if CXR findings could be alveolar hemorrhage as discussed in past Acute blood loss anemia, was on anticoagulation for DVT, CT negative for retroperitoneal hemorrhage, transfused 2 units, stopped heparin, placed IVC filter 12/25 as has acute LLE DVT, no obvious blood loss This pt had persistent leukocytosis even on antibiotics, concern for cholecystitis, if needed would require a percutaneous cholecystostomy tube, family is not wishing to pursue this and now transitioned to comfort care Earlier in hospital stay, abdominal pain and anemia,s/p colonoscopy on 12/[address] Macias for disimpaction. - Had hematemesis/coffee ground emesis on 12/17, heparin gtt(for acute DVT) held, then restarted - With h/o recent GI bleed on previous admission prompted - EGD completed on 12/17 showing LA Grade C reflux esophagitis, hiatal hernia and few gastric polyps. - ERCP completed on 12/22 with gallstone removal-sphincterotomy, concern for continued cholecystitis, not surgical candidate was placed on antibiotics( since stopped on comfort) Elevated bilirubin Completed EUS/ERCP 12/[address] Fischer. Urinary retention secondary to constipation-pt cut her Hu with scissors with episode of delirium-> retention resolved with Hu replaced 12/19 -continue Hu for comfort CKD stage III, no further labs being drawn Dispo-discussion with family has lead to comfort care Palliative Care consult appreciated Comfort measures were provided Pt on 01/01/17 Copy To Eugenio Cardenas M.D.
== END 2017-01-01 04:07 | disposition expired | DRG 356 ==
LOC: C.EDB 09:37 → C.MS4W 16:49 → ENRESERV 17:08 → C.2T 12-23 23:30 → ENRESERV 12-24 08:58 → C.MSICU 12-24 09:21 → ENRESERV 12-27 11:12 → CANRESERV 12-27 11:12 → CANBEDREQ 12-27 11:28 → ENRESERV 12-27 13:42 → C.4E 12-27 15:07
PROVIDERS: ADMIT Hospitalist; ATTEND Family Medicine
PROC: 0DJ08ZZ Inspection of Upper Intestinal Tract, Via Natural or Artificial Opening Endoscopic (ICD-10-PCS; 2016-12-17)
PROC: 0DJD8ZZ Inspection of Lower Intestinal Tract, Via Natural or Artificial Opening Endoscopic (ICD-10-PCS; 2016-12-21)
PROC: 0FC94ZZ Extirpation of Matter from Common Bile Duct, Percutaneous Endoscopic Approach (ICD-10-PCS; 2016-12-22)
PROC: 05HM33Z Insertion of Infusion Device into Right Internal Jugular Vein, Percutaneous Approach (ICD-10-PCS; 2016-12-25)
PROC: 06H03DZ Insertion of Intraluminal Device into Inferior Vena Cava, Percutaneous Approach (ICD-10-PCS; principal; 2016-12-25 12:00)
DX: K56.41 Fecal impaction (principal); I50.33 Acute on chronic diastolic (congestive) heart failure; K80.63 Calculus of gallbladder and bile duct with acute cholecystitis with obstruction; Z51.5 Encounter for palliative care; N13.30 Unspecified hydronephrosis; J96.01 Acute respiratory failure with hypoxia; I82.402 Acute embolism and thrombosis of unspecified deep veins of left lower extremity; E87.1 Hypo-osmolality and hyponatremia; E87.2 Acidosis; N17.9 Acute kidney failure, unspecified; K92.0 Hematemesis; D62 Acute posthemorrhagic anemia; I08.0 Rheumatic disorders of both mitral and aortic valves; R33.9 Retention of urine, unspecified; I48.91 Unspecified atrial fibrillation; N18.3 Chronic kidney disease, stage 3 (moderate); I25.10 Atherosclerotic heart disease of native coronary artery without angina pectoris; I12.9 Hypertensive chronic kidney disease with stage 1 through stage 4 chronic kidney disease, or unspecified chronic kidney disease; M81.0 Age-related osteoporosis without current pathological fracture; M94.0 Chondrocostal junction syndrome [Tietze]; E03.9 Hypothyroidism, unspecified; K21.9 Gastro-esophageal reflux disease without esophagitis; Z88.2 Allergy status to sulfonamides; Z88.0 Allergy status to penicillin; Z86.73 Personal history of transient ischemic attack (TIA), and cerebral infarction without residual deficits; Z86.711 Personal history of pulmonary embolism